=== PATIENT | female | born 1945 | race Caucasian/White ===

== ENCOUNTER 2016-08-04 12:22 | Inpatient (IN) ==
[2016-08-04 14:15] LABS: Basophils % 0.3 %; Eosinophils % 0.2 %; Hematocrit 38.9 % (35.3-44.9); Hemoglobin 11.5 g/dL (11.5-15.4); Immature Granulocytes % 0.7 % (0-4); Immature Platelets 7.6 % (1.1-6.1); Lymphocytes # 1.3 K/mcL (0.6-4.6); Lymphocytes % 12.3 %; Mean Corpuscular HGB Conc 29.6 g/dL (31.6-35.5); Mean Corpuscular Hemoglobin 28.9 pg (28.0-33.3); Mean Corpuscular Volume 97.7 fL (83.0-100.0); Mean Platelet Volume 10.6 fL (9.4-12.4); Monocytes # 0.4 K/mcL (0.0-1.3); Monocytes % 3.4 %; Neutrophils # 8.9 K/mcL (1.6-8.9); Platelet Count 302 K/mcL (140-400); Red Blood Count 3.98 M/mcL (3.82-4.97); Red Cell Distribution Width 13.5 % (11.5-14.5); Segmented Neutrophils % 83.1 %
--- NOTE | 2016-08-04 14:18 | Emergency Department Note ---
Disposition Clinical Impression: Hypoxia, COPD exacerbation Disposition: Admitted As Inpatient Condition: Good Referrals: Hal Monroy MD [Primary Care Provider] - Forms: ED Satisfaction Letter SOB HPI - General Chief Complaint: ED Shortness of Breath/Dyspnea Stated Complaint: ZOE Time Seen by Provider: 08/04/16 14:14 Source: patient, family Mode of arrival: wheelchair Limitations: no limitations Nursing Notes Reviewed: Yes Vital Signs Reviewed: Yes - History of Present Illness 71-year-old female history of CAD, status post CABG, A. 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 Patient is accompanied by family. They report that earlier today at the office the patient was 70% on room air and with her oxygen with ambulation. Reports she had worsening shortness of breath. She reports that she was sent over for evaluation and was told she would likely be admitted. Patient reports she has been short of breath for one week as well as a productive cough with yellow sputum. No fevers. No chest pain. No sick contacts. No history of DVT or PE. No other complaints. 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 Denies: chest pain, fever, nausea/vomiting Treatment prior to arrival: oxygen Cough present: Yes Cough Description: Involuntary Cough Frequency: Intermittent Sputum production: Yes Sputum Amount: Small Sputum Color: Yellow - Related Data Home oxygen amount: 3 liters Home Medications Medication Instructions Recorded Confirmed Acetaminophen [Tylenol] 500 mg PO Q6HR PRN 08/04/16 08/04/16 Albuterol Neb [Proventil Neb] 2.5 mg IH TID 08/04/16 08/04/16 Apixaban [Eliquis] 5 mg PO BID 08/04/16 08/04/16 Aspirin Enteric Coated [Aspirin EC] 81 mg PO DAILY 08/04/16 08/04/16 Clopidogrel [Plavix] 75 mg PO DAILY 08/04/16 08/04/16 Ferrous Sulfate 325 mg PO DAILY 08/04/16 08/04/16 Fluticasone/Salmeterol [Advair 1 each IH BID 08/04/16 08/04/16 500-50 Diskus] Furosemide [Lasix] 40 mg PO DAILY 08/04/16 08/04/16 Lisinopril [Zestril] 5 mg PO DAILY 08/04/16 08/04/16 Metoprolol [Lopressor] 50 mg PO BID 08/04/16 08/04/16 Pantoprazole Sodium [Protonix] 40 mg PO DAILY 08/04/16 08/04/16 Potassium Chloride [K-Tab ER] 20 meq PO DAILY 08/04/16 08/04/16 Pravastatin Sodium [Pravachol] 80 mg PO HS 08/04/16 08/04/16 PredniSONE 7.5 mg PO DAILY 08/04/16 08/04/16 Sennosides/Docusate Sodium 1 each PO DAILY PRN 08/04/16 08/04/16 [Senna-S Tablet] Allergies Allergy/AdvReac Type Severity Reaction Status Date / Time Iodinated Contrast Media - AdvReac See Verified 08/04/16 16:20 Oral and Comments Sulfa (Sulfonamide AdvReac Hives Verified 08/04/16 12:35 Antibiotics) Varenicline [From Chantix] AdvReac See Verified 08/04/16 16:20 Comments tape AdvReac Hives Uncoded 08/04/16 12:35 All systems ED: reviewed and negative except as stated. Constitutional: Denies: fever, chills Cardiovascular: Denies: chest pain Respiratory: Reports: cough, dyspnea. Denies: wheezes, hemoptysis Gastrointestinal: Denies: abdominal pain, nausea, vomiting Musculoskeletal: Denies: back pain, neck pain Past Medical History - Past Medical History Attestation: Yes The following information was validated with the patient. Source: patient Medical history: Reports: CHF, COPD, GERD, hypertension, myocardial infarction Surgical history: Reports: non-contributory Psychiatric history: Reports: anxiety, depression - Social History Smoking Status: Current every day smoker Smokeless Tobacco Status: No Alcohol use: Reports: none Drug use: Reports: none Physical Exam - General Limitations: no limitations General appearance: alert, in no apparent distress - Head Head exam: atraumatic, normocephalic, normal inspection - Eye Eye exam: Present: normal appearance, EOMI - ENT ENT exam: normal exam - Neck Neck exam: Present: normal inspection, full ROM - Chest Chest inspection: Present: normal inspection, symmetric chest wall rise - Respiratory Respiratory exam: Present: normal lung sounds bilaterally - Cardiovascular Cardiovascular exam: Present: normal rhythm, irregular rhythm, normal heart sounds - Abdominal Exam Abdominal exam: Present: soft, Non-Tender. Absent: tenderness - Extremities Exam Extremities exam: Present: normal inspection, full ROM - Expanded Upper Extremity Exam Shoulder exam: Present: normal inspection, full ROM Arm exam: Present: normal inspection, full ROM Elbow exam: Present: normal inspection, full ROM Forearm/Wrist exam: Present: normal inspection, full ROM Hand exam: Present: normal inspection, full ROM - Expanded Lower Extremity Exam Hip/Pelvis exam: Present: normal inspection, full ROM Upper leg exam: Present: normal inspection, full ROM Knee exam: Present: normal inspection, full ROM Lower leg exam: Present: normal inspection, full ROM Ankle exam: Present: normal inspection, full ROM Foot/toe exam: Present: normal inspection, full ROM - Neurological Exam Neurological exam: Present: alert - Psychiatric Psychiatric exam: Present: normal affect, normal mood - Skin Skin exam: Present: warm, dry, intact, normal color Course Course Narrative: Patient seen and examined. Vital signs reviewed. Patient has an increased oxygen requirement here. We will get an EKG chest x-ray as well as basic labs including troponin and BNP. - Reevaluation(s) Reevaluation #1: Discussed results of lab work and imaging with the patient and family. Vital Signs Temperature 98.6 F 08/04/16 12:26 Pulse Rate 82 08/04/16 12:26 Respiratory Rate 22 08/04/16 12:26 Blood Pressure 132/73 08/04/16 12:26 O2 Sat by Pulse Oximetry 98 08/04/16 12:26 Temperature 98.6 F 08/04/16 12:26 Pulse Rate 70 08/04/16 16:00 Respiratory Rate 8 08/04/16 16:32 Blood Pressure 115/75 08/04/16 16:00 O2 Sat by Pulse Oximetry 99 08/04/16 16:32 Oxygen Delivery Oxygen Delivery Nasal Cannula Shortness of Breath/Dyspnea - MDM Narrative Medical decision making narrative: 71-year-old female presents to the ER due to hypoxia and shortness of breath. Patient reports she has had symptoms for the last week. She was seen today by her restaurant maintenance technician where she desatted they are to 70%. Patient has had increased oxygen requirement to 8 L nasal cannula here. Mentating appropriately. EKG shows A. fib which is chronic for her. Chest x-ray unremarkable. Patient given a DuoNeb and Solu-Medrol here. Admitted to the hospital for hypoxia. - Lab Data Lab results reviewed: Yes I reviewed the patient's lab results. Result diagrams: 08/04/16 14:01 08/04/16 14:01 Lab Results 08/04/16 08/04/16 08/04/16 Range/Units 14:01 14:01 14:01 WBC 10.7 (4.3-11.1) K/mcL RBC 3.98 (3.82-4.97) M/mcL Hgb 11.5 (11.5-15.4) g/dL Hct 38.9 (35.3-44.9) % MCV 97.7 (83.0-100.0) fL MCH 28.9 (28.0-33.3) pg MCHC 29.6 L (31.6-35.5) g/dL RDW 13.5 (11.5-14.5) % Plt Count 302 (140-400) K/mcL MPV 10.6 (9.4-12.4) fL Immature Gran % 0.7 (0-4) % Seg Neutrophils % 83.1 % Lymphocytes % 12.3 % Monocytes % 3.4 % Eosinophils % 0.2 % Basophils % 0.3 % Neutrophils # 8.9 (1.6-8.9) K/mcL Lymphocytes # 1.3 (0.6-4.6) K/mcL Monocytes # 0.4 (0.0-1.3) K/mcL Eosinophils # 0.0 (0.0-0.6) K/mcL Basophils # 0.0 (0.0-0.2) K/mcL Immature Plt Fraction 7.6 H (1.1-6.1) % Sodium 141 (136-145) mEq/L Potassium 4.4 (3.5-4.5) mEq/L Chloride 103 (98-109) mEq/L Carbon Dioxide 30 H (19-29) mEq/L BUN 24 H (7-20) mg/dL Creatinine 0.97 (0.57-1.11) mg/dL Est GFR ( Amer) > 60 (> 60) Est GFR (Non-Af Amer) 56 L (> 60) BUN/Creatinine Ratio 25 (6-26) Glucose 102 H (70-99) mg/dL Calculated Osmolality 296 (280-300) Calcium 9.9 (8.6-10.8) mg/dL Troponin I 0.03 (0-0.03) ng/mL B-Natriuretic Peptide (0-100) pg/mL 08/04/16 Range/Units 14:01 WBC (4.3-11.1) K/mcL RBC (3.82-4.97) M/mcL Hgb (11.5-15.4) g/dL Hct (35.3-44.9) % MCV (83.0-100.0) fL MCH (28.0-33.3) pg MCHC (31.6-35.5) g/dL RDW (11.5-14.5) % Plt Count (140-400) K/mcL MPV (9.4-12.4) fL Immature Gran % (0-4) % Seg Neutrophils % % Lymphocytes % % Monocytes % % Eosinophils % % Basophils % % Neutrophils # (1.6-8.9) K/mcL Lymphocytes # (0.6-4.6) K/mcL Monocytes # (0.0-1.3) K/mcL Eosinophils # (0.0-0.6) K/mcL Basophils # (0.0-0.2) K/mcL Immature Plt Fraction (1.1-6.1) % Sodium (136-145) mEq/L Potassium (3.5-4.5) mEq/L Chloride (98-109) mEq/L Carbon Dioxide (19-29) mEq/L BUN (7-20) mg/dL Creatinine (0.57-1.11) mg/dL Est GFR ( Amer) (> 60) Est GFR (Non-Af Amer) (> 60) BUN/Creatinine Ratio (6-26) Glucose (70-99) mg/dL Calculated Osmolality (280-300) Calcium (8.6-10.8) mg/dL Troponin I (0-0.03) ng/mL B-Natriuretic Peptide 314 H (0-100) pg/mL - Radiology Data Radiology results reviewed: Yes I reviewed the patient's radiology results. Chest X-Ray 08/04/16 13:38 IMPRESSION: Stable chest. Persistent cardiomegaly. D/ / Micha Mercado MD / Micha Mercado MD Interpreting Provider: Micha Mercado MD - EKG Data EKG attestation: Yes I reviewed and interpreted this EKG. EKG results narrative: EKG demonstrates atrial fibrillation with a rate of 77. LAD. QRS duration 104, QTc 432. T wave flattening in Leads 2,3. No ST elevations or depressions. No acute ischemic findings. S.B.A.R. - S.Matteo.Krystian Situation: Demographics, MOA Background: Presenting Complaint, Relevant PMH, Meds, & Allergies Assessment: Vital Signs, Course and respsone to treatment, Exam Concerns, Patient/Family Expectation, Pertinant Lab Results, Outstanding Labs Recommendation: Barrier(s) to disposition, Recommendation based on pending studies, treatments, or consults S.B.A.RDavid Report Given to: Fabienne Muniz Repor Time: 17:40 Attestation Statement - Attestation Attestation: I personally interviewed and examined this patient and my medical decision- making was reviewed with the ED Resident Physician, Dr. Hayes. I agree with the documented findings, disposition and treatment plan as described in the documentation. Pt will be admitted for COPD exacerbation, sent from [employer]er Deliverer's office, with incr O2 requirement. Labs and imaging here wnl.
[2016-08-04 14:26] LABS: BUN/Creatinine Ratio 25 (6-26); Blood Urea Nitrogen 24 mg/dL (7-20); Calcium 9.9 mg/dL (8.6-10.8); Carbon Dioxide 30 mEq/L (19-29); Chloride 103 mEq/L (98-109); Glucose 102 mg/dL (70-99); Osmolality,Calculated 296 (280-300); Potassium 4.4 mEq/L (3.5-4.5); Sodium 141 mEq/L (136-145); eGFR For African Americans > 60 (> 60); eGFR For Non-African Americans 56 (> 60)
[2016-08-04] MEDS ORDERED: Furosemide 20 MG/2 ML VIAL IVP ONE (14:51)
[2016-08-04] MEDS ORDERED: methylPREDNISolone 125 MG/2 ML VIAL IVP ONE (16:04)
[2016-08-04] MEDS ORDERED: Ipratropium/Albuterol Neb 3 ML IH ONE (16:04)
[2016-08-04] MEDS ORDERED: Naloxone 0.4 MG/ML INJ IVP PRN (22:53)
[2016-08-04] MEDS ORDERED: Sennosides/Docusate Sodium TABLET PO PRN (22:55)
--- NOTE | 2016-08-04 23:01 | Internal Med History&Physical ---
Date of Encounter: 08/04/16 Time of Encounter: 23:00 Assessment and Plan (1) COPD exacerbation Current visit: Yes Status: Acute Treated the Solu-Medrol, duonebs, Mucinex. (2) Acute and chronic respiratory failure Current visit: Yes Status: Acute Likely need to get a consideration of COPD. Continue supplemental oxygen and treatment for COPD exacerbation. Qualifiers: Respiratory failure complication: hypoxia Qualified Code(s): J96.21 - Acute and chronic respiratory failure with hypoxia (3) Chronic anticoagulation Current visit: Yes Status: Chronic Pt is on apixaban - continue (4) Atrial fibrillation with normal ventricular rate Current visit: No Status: Acute (5) Hypertension Current visit: Yes Status: Chronic Continue home medications Qualifiers: Hypertension type: essential hypertension Qualified Code(s): I10 - Essential (primary) hypertension (6) Nicotine dependence Current visit: Yes Status: Chronic Nicotine patch Qualifiers: Nicotine product type: cigarettes Substance use status: other nicotine- induced disorder Qualified Code(s): F17.218 - Nicotine dependence, cigarettes , with other nicotine-induced disorders Internal Medicine - H&P: HPI Chief complaint: Shortness of breath; hypoxia Admitted From: Emergency Dept Plans for Post Hospital Care: Home History of present illness: Ms. Rodarte is a 71 year old female with history of CAD, status post CABG, A. fib , chronic respiratory failure on home oxygen 3 L. 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 In the office the patient was hypoxic with O2 sats of 70% on room air and with her oxygen with ambulation - hence she was sent to the emergency department for further evaluation. In the ER, CXR showed cardiomegaly. She was treated with duo-nebs, IV lasix and solumedrol. She is admitted to the hospitalist service for further management. Patient reports shortness of breath on exertion. She reports cough, due to sinus problems; no hemoptysis. Denies wheezing, chest pain, palpitations, abdominal pain, nausea, vomiting, fever, chills, dysuria, hematuria, bowel problems. Past Med Surg Social Fam HX - Past Medical History Medical history: CHF, COPD, GERD, hypertension, myocardial infarction Psychiatric history: anxiety, depression - Past Surgical History Surgical History: angioplasty/stent, hysterectomy, pacemaker/AICD - Social History Smoking Status: Current every day smoker Packs per day: 1 Smokeless Tobacco Status: No Alcohol use: none Drug use: none - Family History Father Adopted: [place]: [place] Family Member Ethnicity: Non- Living Status: Age at : 38 Cause of : [place] Hx Family Cardiac Disorders: Yes Hx Family Respiratory Disorders: No Hx Family Cancer: No Hx Family GI Disorders: No Hx Family Genitourinary Disorders: No Hx Family Endocrine Disorder: No Hx Family Musculoskeletal Disorders: No Hx Family Neuromuscular Disorders: No Hx Family Neurologic Disorders: No Hx Family HEENT Disorders: No Hx Family Autoimmune Disorders: No Hx Family Reproductive Disorders: No Hx Family Psychosocial Disorders: No Hx Family Medical Disorders: No Internal Medicine - H&P: Meds Acetaminophen [Tylenol] 500 mg PO Q6HR PRN 08/04/16 [History] Albuterol Neb [Proventil Neb] 2.5 mg IH TID 08/04/16 [History] Apixaban [Eliquis] 5 mg PO BID 08/04/16 [History] Aspirin Enteric Coated [Aspirin EC] 81 mg PO DAILY 08/04/16 [History] Clopidogrel [Plavix] 75 mg PO DAILY 08/04/16 [History] Ferrous Sulfate 325 mg PO DAILY 08/04/16 [History] Fluticasone/Salmeterol [Advair 500-50 Diskus] 1 each IH BID 08/04/16 [History] Furosemide [Lasix] 40 mg PO DAILY 08/04/16 [History] Lisinopril [Zestril] 5 mg PO DAILY 08/04/16 [History] Metoprolol [Lopressor] 50 mg PO BID 08/04/16 [History] Pantoprazole Sodium [Protonix] 40 mg PO DAILY 08/04/16 [History] Potassium Chloride [K-Tab ER] 20 meq PO DAILY 08/04/16 [History] Pravastatin Sodium [Pravachol] 80 mg PO HS 08/04/16 [History] PredniSONE 7.5 mg PO DAILY 08/04/16 [History] Sennosides/Docusate Sodium [Senna-S Tablet] 1 each PO DAILY PRN 08/04/16 [ History] Allergies Iodinated Contrast Media - Oral and Adverse Reaction (Verified 08/04/16 16:20) See Comments ECW Sulfa (Sulfonamide Antibiotics) Adverse Reaction (Verified 08/04/16 12:35) Hives Varenicline [From Chantix] Adverse Reaction (Verified 08/04/16 16:20) See Comments ECW tape Adverse Reaction (Uncoded 08/04/16 12:35) Hives All Systems PM: A 10-system review of systems was performed and is negative for pertinent findings except as documented above in the HPI. - Constitutional Vitals: Temp Pulse Resp BP Pulse Ox 97.3 F L 79 15 95/59 99 08/04/16 20:11 08/04/16 20:11 08/04/16 20:11 08/04/16 20:11 08/04/16 20:11 Exam: General: Not in acute distress at the time of my evaluation HEENT: Oral mucosa is moist. No conjunctival palor or scleral icterus Neck: No obvious neck swellings Lungs: Occasional wheeze present. Few basal crackles at the bases Cardiac: Regular rate and rhythm. No significant murmurs Abdomen: Soft, non tender. Bowel sounds present Genitourinary: No avina catheter Neurological: Alert and oriented. No gross localizing deficits Psych: Not aggressive or agitated Extremities: leg edema present Skin: No generalized rash Internal Med - H&P Results - Labs CBC & Chem 7: 08/05/16 04:29 08/05/16 02:48 - EKG Data -: EKG Interpreted by Myself - EKG Data EKG comments: A fib, rate controlled 08/05/16 08:01 - Impressions ITS Impressions Chest X-Ray 08/04/16 13:38 IMPRESSION: Stable chest. Persistent cardiomegaly. D/ / Micha Mercado MD / Micha Mercado MD Interpreting Provider: Micha Mercado MD
[2016-08-04] MEDS: APIXABAN 5 MG TABLET PO SCH (23:12)
[2016-08-04] MEDS: Budesonide/Formoterol 160/4.5 MDI IH SCH (23:26)
[2016-08-04] MEDS: Ipratropium/Albuterol Neb 3 ML IH SCH (23:26)
[2016-08-05] MEDS: MethylPREDNISolone 40 MG/ML VIAL IVP SCH ×3 (00:17→16:11)
[2016-08-05] MEDS: Ipratropium/Albuterol Neb 3 ML IH SCH ×4 (03:55→21:57)
[2016-08-05 04:08] LABS: BUN/Creatinine Ratio 24 (6-26); Blood Urea Nitrogen 24 mg/dL (7-20); Calcium 9.3 mg/dL (8.6-10.8); Carbon Dioxide 25 mEq/L (19-29); Chloride 104 mEq/L (98-109); Glucose 215 mg/dL (70-99); Osmolality,Calculated 299 (280-300); Potassium 4.5 mEq/L (3.5-4.5); Sodium 139 mEq/L (136-145); eGFR For African Americans > 60 (> 60); eGFR For Non-African Americans 53 (> 60)
[2016-08-05 04:45] LABS: Basophils % 0.1 %; Hematocrit 32.8 % (35.3-44.9); Hemoglobin 10.4 g/dL (11.5-15.4); Immature Granulocytes % 0.9 % (0-4); Lymphocytes # 0.8 K/mcL (0.6-4.6); Lymphocytes % 9.2 %; Mean Corpuscular HGB Conc 31.7 g/dL (31.6-35.5); Mean Corpuscular Volume 94.5 fL (83.0-100.0); Monocytes # 0.1 K/mcL (0.0-1.3); Monocytes % 0.8 %; Neutrophils # 7.5 K/mcL (1.6-8.9); Platelet Count 257 K/mcL (140-400); Red Blood Count 3.47 M/mcL (3.82-4.97); Red Cell Distribution Width 13.3 % (11.5-14.5)
[2016-08-05] MEDS: Furosemide 40 MG TABLET PO SCH (08:22)
[2016-08-05] MEDS: Aspirin Enteric Coated 81 MG Tablet PO SCH (08:22)
[2016-08-05] MEDS: APIXABAN 5 MG TABLET PO SCH ×2 (08:22→20:38)
[2016-08-05] MEDS: Nicotine 21 MG PATCH.TD24 TD SCH (08:23)
[2016-08-05] MEDS: Budesonide/Formoterol 160/4.5 MDI IH SCH ×2 (10:13→21:57)
--- NOTE | 2016-08-05 14:09 | Internal Med Progress Note ---
Date of Encounter: 08/05/16 Time of Encounter: 09:15 - Assessment and plan (1) COPD exacerbation Current Visit: Yes Status: Acute Assessment and plan: On examination, patient with fair to good aeration throughout. I'm not fully convince her decreased oxygen levels as well as her increased shortness of breath with exertion are strictly related to her COPD. Suspect her combined heart failure is playing a role. She has not had an echocardiogram since 2013, one has been ordered. We will continue to treat for both COPD exacerbation as well as possible heart failure exacerbation. Last known ejection fraction from 2012 was 40%. ITS Impressions Chest X-Ray 08/04/16 13:38 IMPRESSION: Stable chest. Persistent cardiomegaly. 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 Most recent echocardiogram from 2012 revealed ejection fraction of 40% with moderate LV dysfunction, mild TR, MR , and mild aortic stenosis with stage I diastolic dysfunction. She also had a left heart catheter and December 2015 which revealed severe stenosis of her left main, left anterior descending with occlusions of her left circumflex and occlusion of SVG to LAD. She appears euvolemic on examination although an acute exacerbation given her dyspnea on exertion is likely contributing factor. Her lungs are relatively clear with fair to good aeration throughout. No recent echocardiogram, will obtain one. (3) Atrial fibrillation with normal ventricular rate Current Visit: No Status: Chronic Assessment and plan: rate controlled; on Eliquis (4) Acute and chronic respiratory failure Current Visit: Yes Status: Acute Assessment and plan: Acute on chronic. At home, she is on 3 L per nasal cannula as needed. She is currently more short of breath than usual and on 4 L per nasal cannula continuously. Qualifiers: Respiratory failure complication: hypoxia Qualified Code(s): J96.21 - Acute and chronic respiratory failure with hypoxia (5) Chronic anticoagulation Current Visit: Yes Status: Chronic Assessment and plan: Eliquis (6) Hypertension Current Visit: Yes Status: Chronic Assessment and plan: Controlled, borderline hypotensive at times, will continue to trend. At home, patient is on metoprolol 50 mg twice a day, lisinopril 5 mg daily, furosemide 40 mg daily and these have all been continued. Qualifiers: Hypertension type: essential hypertension Qualified Code(s): I10 - Essential (primary) hypertension (7) Nicotine dependence Current Visit: Yes Status: Chronic Assessment and plan: Continues to smoke 1 pack per day, declines counseling at this time Qualifiers: Nicotine product type: cigarettes Substance use status: other nicotine- induced disorder Qualified Code(s): F17.218 - Nicotine dependence, cigarettes , with other nicotine-induced disorders - Subjective Interval history: Patient is seen and examined. On examination patient sitting upright in bed. Patient states she is feeling slightly better this continues to be much more short of breath than usual. She is endorsing a normal appetite. - Constitutional Vitals: Temp Pulse Resp BP Pulse Ox 98.1 F 82 16 93/56 97 08/05/16 10:51 08/05/16 10:51 08/05/16 10:51 08/05/16 10:51 08/05/16 10:51 General appearance: Present: mild distress, A&O X 3, pleasant, answers questions appropriately - Head Head exam: Present: atraumatic, normocephalic - Eye Eye exam: Present: PERRL, conjuntiva pink, sclera anicteric Pupils: Present: PERRL - Neck Neck exam general surgery: Present: supple, trachea midline. Absent: lymphadenopathy - Respiratory Respiratory exam: Present: accessory muscle use, decreased breath sounds (fair to good aeration throughout), prolonged expiratory phase, respiratory distress. Absent: rales, rhonchi, wheezes - Cardiovascular Cardiovascular exam: Present: RRR, +S1, +S2. Absent: diastolic murmur, gallop, rubs, systolic murmur - GI/Abdominal GI/Abdominal exam: Present: normal bowel sounds, soft, no peritoneal signs. Absent: distended, tenderness - Extremities Exam Extremities exam: Present: warm, radial pulses palpable and symetrical. Absent : calf tenderness, cyanotic, pedal edema - Neurological Exam Neurological exam: Present: alert, CN II-XII intact, normal gait, oriented X3, no focal deficits, strengths equal and symetr throughout. Absent: pronater drift, facial droop, speech deficit - Skin Skin exam: Present: dry, intact, pallor, warm Internal Medicine: Result - Labs CBC & Chem 7: 08/05/16 04:29 08/05/16 02:48 Labs: Short CBC 08/05/16 Range/Units 04:29 WBC 8.5 (4.3-11.1) K/mcL Hgb 10.4 L (11.5-15.4) g/dL Hct 32.8 L (35.3-44.9) % Plt Count 257 (140-400) K/mcL Neutrophils # 7.5 (1.6-8.9) K/mcL BMP 08/05/16 02:48 Sodium 139 Potassium 4.5 Chloride 104 Carbon Dioxide 25 BUN 24 H Creatinine 1.02 Glucose 215 H Calcium 9.3 Consult Discharge Plan - Plan Referrals: Hal Monroy MD [Primary Care Provider] -
[2016-08-06] MEDS: MethylPREDNISolone 40 MG/ML VIAL IVP SCH ×3 (01:21→18:01)
[2016-08-06] MEDS: Ipratropium/Albuterol Neb 3 ML IH SCH ×3 (03:47→15:49)
[2016-08-06 04:15] LABS: BUN/Creatinine Ratio 25 (6-26); Blood Urea Nitrogen 24 mg/dL (7-20); Calcium 9.3 mg/dL (8.6-10.8); Carbon Dioxide 29 mEq/L (19-29); Chloride 102 mEq/L (98-109); Glucose 170 mg/dL (70-99); Osmolality,Calculated 300 (280-300); Potassium 4.3 mEq/L (3.5-4.5); Sodium 141 mEq/L (136-145); eGFR For African Americans > 60 (> 60); eGFR For Non-African Americans 56 (> 60)
[2016-08-06] MEDS: APIXABAN 5 MG TABLET PO SCH (10:36)
[2016-08-06] MEDS: Aspirin Enteric Coated 81 MG Tablet PO SCH (10:36)
[2016-08-06] MEDS: Furosemide 40 MG TABLET PO SCH (10:36)
[2016-08-06] MEDS: Nicotine 21 MG PATCH.TD24 TD SCH (10:37)
[2016-08-06 10:44] VITALS: BP 133/72
[2016-08-06] MEDS: Budesonide/Formoterol 160/4.5 MDI IH SCH (10:50)
--- NOTE | 2016-08-06 16:08 | ECHO - Doppler Report ---
Echocardiogram Name: Juan Rodarte Date of Study: 08/06/2016 Date: 1945 Ht: 58.0 in Medical Record#: [id number] Age: 71 Wt: 143.0 lb Gender: Female BSA: 1.58 Order #: [id number] Location: [facility] Room #: 3B11 Reading Physician: Micha Jackson MD, [facility] Hand Kiss Setter: Ara Isbell RVT Ordering Physician: Latanya Jones CNP Primary Physician: Hal Monroy MD Indications: dyspnea on exertion Impressions: Moderately dilated left ventricle. Mild LV systolic dysfunction, LVEF 40-45%. There are regional wall motion abnormalities, see diagram below. Indeterminate diastolic function due to atrial fibrillation. Normal right ventricular size. Mild RV hypokinesis. A device lead was visualized in the right atrium and right ventricle. Severely dilated left atrium. Moderately dilated right atrium. Mild mitral regurgitation. No evidence of pulmonary hypertension. Left Ventricular Wall Motion: Rest Echo Findings The apical inferior, mid inferior, basal inferior, apical septal, mid inferior septal, basal inferior septal, mid inferior lateral and basal inferior lateral mack were hypokinetic. All other wall segments showed normal motion. Findings: Study Quality * Technically adequate exam. ECG Findings * Atrial fibrillation. Left Ventricle * Moderately dilated left ventricle. * Mild LV systolic dysfunction, LVEF 40-45%. There are regional wall motion abnormalities, see diagram below. * Normal LV wall thickness * Indeterminate diastolic function due to atrial fibrillation. Right Ventricle * Normal right ventricular size. Mild RV hypokinesis. Device lead * A device lead was visualized in the right atrium and right ventricle. Left Atrium * Severely dilated left atrium. Right Atrium * Moderately dilated right atrium. Aorta * Normally sized aortic root. Pericardium * There is no pericardial effusion present. IVC * The IVC is borderline dilated with normal inspiratory collapse. Aortic Valve * Aortic valve not well visualized. Appears moderately thickened/calcified. * No aortic stenosis. * Trace aortic regurgitation. Mitral Valve * Mild mitral annular calcification * Mildly thickened mitral valve leaflets. * No mitral stenosis. * Mild mitral regurgitation. Tricuspid Valve * Normal tricuspid valve structure. * No tricuspid stenosis. * Trace tricuspid regurgitation. * No evidence of pulmonary hypertension. Pulmonic Valve * Normal pulmonic valve structure. * No pulmonic stenosis. * Trace pulmonic regurgitation. History Hypertension Hypercholesteremia Rheumatic Fever Family History of CAD History of CAD/PTCA Myocardial Infarction Coronary Artery Bypass Graft Pacer/ICD Implant Measurements: BP: 105/ 62 2D Normal Values RVIDd: 2.88 cm IVSd: 1.04 cm 0.6 - 1.0 cm LVIDd: 5.95 cm 3.7 - 5.6 cm LVPWd: .94 cm 0.6 - 1.1 cm LVIDs: 4.93 cm 1.5 - 3.6 cm AO: 2.70 cm < 4.0 cm %FS: 17.10 cm >25 % LA volume: 125 Tricuspid Valve TV Regurg Peak Grad: 17.00mmHg TV Regurg Peak Raciel: 2.10m/sec Updated by Micha Jackson MD, [facility] on 08/06/2016 4:03:25 PM electronically signed on 08/06/2016 4:04:30 PM with status of Final Wall Motion Hdz: 1=Normal, 2=Hypokinesis, 3=Akinesis, 4=Dyskinesis, 5=Aneurysmal, 6=Hyperkinetic, X=Not Visualized (Blank)=Missing
--- NOTE | 2016-08-06 17:33 | Discharge Summary ---
Date of Encounter: 08/06/16 Time of Encounter: 16:30 - Discharge Diagnosis (1) COPD exacerbation Priority: Primary Status: Resolved Comments: Patient denies shortness of breath above her normal day of discharge. 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 Follow-up outpatient. (3) Atrial fibrillation with normal ventricular rate Priority: Secondary Status: Chronic Comments: rate controlled; on Eliquis. Follow-up outpatient (4) Acute and chronic respiratory failure Priority: Primary Status: Acute Comments: She wears 3 L per nasal cannula as needed at home. We walked her prior to discharge and the lowest she will was 88% on room air after extensive walking. No increased need for oxygen. Qualifiers: Respiratory failure complication: hypoxia Qualified Code(s): J96.21 - Acute and chronic respiratory failure with hypoxia (5) Chronic anticoagulation Priority: Secondary Status: Chronic (6) Hypertension Priority: Secondary Status: Chronic Comments: Controlled, borderline hypotensive at times but asymptomatic. Daily blood pressure checks at home, and follow-up outpatient Qualifiers: Hypertension type: essential hypertension Qualified Code(s): I10 - Essential (primary) hypertension (7) Nicotine dependence Priority: Secondary Status: Chronic Comments: Lengthy discussion on smoking cessation, patient stating she has been to try to cut down to 8-10 cigarettes per day but she is not ready to discuss stopping Qualifiers: Nicotine product type: cigarettes Substance use status: other nicotine- induced disorder Qualified Code(s): F17.218 - Nicotine dependence, cigarettes , with other nicotine-induced disorders - Discharge Medications Prescriptions: GuaiFENesin ER [Mucinex] 600 mg PO BID #14 tbbp.12hr Levofloxacin 750 mg PO DAILY #5 tablet PredniSONE 10 mg PO DAILY #41 tablet Home Medications: Acetaminophen [Tylenol] 500 mg PO Q6HR PRN 08/04/16 [History] Albuterol Neb [Proventil Neb] 2.5 mg IH TID 08/04/16 [History] Apixaban [Eliquis] 5 mg PO BID 08/04/16 [History] Aspirin Enteric Coated [Aspirin EC] 81 mg PO DAILY 08/04/16 [History] Clopidogrel [Plavix] 75 mg PO DAILY 08/04/16 [History] Ferrous Sulfate 325 mg PO DAILY 08/04/16 [History] Fluticasone/Salmeterol [Advair 500-50 Diskus] 1 each IH BID 08/04/16 [History] Furosemide [Lasix] 40 mg PO DAILY 08/04/16 [History] Lisinopril [Zestril] 5 mg PO DAILY 08/04/16 [History] Metoprolol [Lopressor] 50 mg PO BID 08/04/16 [History] Pantoprazole Sodium [Protonix] 40 mg PO DAILY 08/04/16 [History] Potassium Chloride [K-Tab ER] 20 meq PO DAILY 08/04/16 [History] Pravastatin Sodium [Pravachol] 80 mg PO HS 08/04/16 [History] PredniSONE 7.5 mg PO DAILY 08/04/16 [History] Sennosides/Docusate Sodium [Senna-S Tablet] 1 each PO DAILY PRN 08/04/16 [ History] GuaiFENesin ER [Mucinex] 600 mg PO BID #14 tbbp.12hr 08/06/16 [Rx] Levofloxacin 750 mg PO DAILY #5 tablet 08/06/16 [Rx] PredniSONE 10 mg PO DAILY #41 tablet 08/06/16 [Rx] Allergies/Adverse Reactions: Allergies Iodinated Contrast Media - Oral and Adverse Reaction (Verified 08/04/16 16:20) See Comments ECW Sulfa (Sulfonamide Antibiotics) Adverse Reaction (Verified 08/04/16 12:35) Hives Varenicline [From Chantix] Adverse Reaction (Verified 08/04/16 16:20) See Comments ECW tape Adverse Reaction (Uncoded 08/04/16 12:35) Hives Procedures/tests Complete & Pending: Procedures Performed prior 72 hours Category Date Time Status EV echocardiogram Routine Y 08/06/16 14:20 Completed Date of admission: 08/04/16 22:53 Primary care physician: Hal Monroy MD Discharging clinician: Latanya Jones Anticipated date of discharge: 08/06/16 - Patient Status Disposition: Home, Self-Care Condition: Good Functional capacity at discharge: independent ambulation Overall status at discharge: patient is back to baseline - Discharge Instructions Follow Up With: Hal Monroy MD [Primary Care Provider] - Prabhu Pete MD [Partnered Physician] - Additional Instructions: Follow-up with primary care provider in one to 2 weeks. Follow-up with pulmonology as needed - Diet and Activity Activity: increase activity as tolerated, wear oxygen at night (PRN) Diet: low fat, low cholesterol, low salt diet Hospital course: Ms. Rodarte is a 71 year old female with past medical history of CAD status post CABG, atrial fibrillation on Eliquis, chronic respiratory failure on 3 L per nasal cannula as needed at home, combined heart failure status post ICD, tobacco abuse. Patient presented to the emergency department after she was sent from her plant pathologist office due to hypoxia and shortness of breath. She was in her plant pathologist's office when her oxygen sats went down to 70% on room air and she was sent to the emergency department. Chest x-ray unremarkable for acute processes. Patient was admitted to the hospitalist service for further evaluation and management. She was admitted and observed over the course of 3 days. She was treated for COPD exacerbation and she had an echocardiogram which revealed an ejection fraction of 40-45% and was consistent with prior echocardiogram documented at her visit with cardiology earlier this year of an echocardiogram that she had in 2013. She was euvolemic on examination throughout this admission. On day of discharge, she was walked around the unit for an extended period of time and the lowest her oxygen went was 88% on room air with ambulation and talking. She denies shortness of breath above her normal day of discharge. She was counseled extensively on smoking cessation and she states that she will try to cut down from one pack per day down to 10- 12 cigarettes per day but she is not ready to discuss stopping smoking at this time. She was discharged home in stable condition with close outpatient follow- up recommended. ITS Impressions Chest X-Ray 08/04/16 13:38 IMPRESSION: Stable chest. Persistent cardiomegaly. D/ / Micha Mercado MD / Micha Mercado MD Interpreting Provider: Micha Mercado MD Echocardiogram impressions: Moderately dilated left ventricle. Mild LV systolic dysfunction, LVEF 40-45%. There are regional wall motion abnormalities. Indeterminate diastolic function due to atrial fibrillation. Normal right ventricular size. Mild RV hypokinesis. A device lead was visualized in the right atrium and right ventricle. Severely dilated left atrium. Moderately dilated right atrium. Mild mitral regurgitation. No evidence of pulmonary hypertension. Time spent discussing smoking cessation with patient: more than 10 minutes - Time Spent with Patient Total time spent providing and/or coordinating discharge services: - Constitutional Vitals: Temp Pulse Resp BP Pulse Ox 98.0 F 93 16 133/72 94 L 08/06/16 10:40 08/06/16 10:40 08/06/16 15:49 08/06/16 10:40 08/06/16 15:49 General appearance: Present: A&O X 3, pleasant, no acute distress, answers questions appropriately - Head Head exam: Present: atraumatic, normocephalic - Eye Eye exam: Present: PERRL, conjuntiva pink, sclera anicteric Pupils: Present: PERRL - Neck Neck exam general surgery: Present: supple, trachea midline. Absent: lymphadenopathy - Respiratory Respiratory exam: Present: decreased breath sounds. Absent: accessory muscle use, rales, respiratory distress, rhonchi, wheezes - Cardiovascular Cardiovascular exam: Present: RRR, +S1, +S2. Absent: diastolic murmur, gallop, rubs, systolic murmur - GI/Abdominal GI/Abdominal exam: Present: normal bowel sounds, soft, no peritoneal signs. Absent: distended, tenderness - Extremities Exam Extremities exam: Present: warm, radial pulses palpable and symetrical. Absent : calf tenderness, cyanotic, pedal edema - Neurological Exam Neurological exam: Present: alert, CN II-XII intact, normal gait, oriented X3, no focal deficits, strengths equal and symetr throughout. Absent: pronater drift, facial droop, speech deficit - Skin Skin exam: Present: dry, intact, pallor, warm
--- NOTE | 2016-08-06 20:50 | Electrocardiograph Report ---
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
== END 2016-08-06 18:45 | disposition home or self-care (01) | DRG 190 ==
LOC: EMEROO 12:22 → 3ANU 12:22 → 3BNU 18:07
PROVIDERS: ADMIT Nurse Practitioner Family; ATTEND Nurse Practitioner Family

== ENCOUNTER 2016-11-10 11:05 | Inpatient (IN) ==
--- NOTE | 2016-11-10 11:20 | Emergency Department Note ---
Disposition Clinical Impression: Congestive heart failure Qualifiers: Congestive heart failure type: unspecified congestive heart failure type Congestive heart failure chronicity: acute Qualified Code(s): I50.9 - Heart failure, unspecified Disposition: Admitted As Inpatient Condition: Fair Forms: ED Satisfaction Letter Time of Disposition: 13:33 SOB HPI - General Chief Complaint: ED Shortness of Breath/Dyspnea Stated Complaint: ZEO, bilat LE swelling, multiple complaints Time Seen by Provider: 11/10/16 11:09 Source: patient Mode of arrival: ambulatory Limitations: no limitations Nursing Notes Reviewed: Yes Vital Signs Reviewed: Yes - History of Present Illness 71-year-old female who comes in complaining of increasing shortness of breath pain in her feet bilaterally. She noticed that she had increasing swelling of her feet. She does have a history of CHF and takes Lasix. Pt Subjective Complaint: shortness of breath Onset (ago): Just [employer] Context: occurred during exertion Severity: moderate Consistency/Duration: constant Improves with: rest Worsens with: exertion Known history of: congestive heart failure Associated symptoms: Reports: cough Treatment prior to arrival: none Sputum Amount: None - Related Data Home Medications Medication Instructions Recorded Confirmed Acetaminophen [Tylenol] 500 mg PO Q6HR PRN 08/04/16 08/04/16 Albuterol Neb [Proventil Neb] 2.5 mg IH TID 08/04/16 08/04/16 Apixaban [Eliquis] 5 mg PO BID 08/04/16 08/04/16 Aspirin Enteric Coated [Aspirin EC] 81 mg PO DAILY 08/04/16 08/04/16 Clopidogrel [Plavix] 75 mg PO DAILY 08/04/16 08/04/16 Ferrous Sulfate 325 mg PO DAILY 08/04/16 08/04/16 Fluticasone/Salmeterol [Advair 1 each IH BID 08/04/16 08/04/16 500-50 Diskus] Furosemide [Lasix] 40 mg PO DAILY 08/04/16 08/04/16 Lisinopril [Zestril] 5 mg PO DAILY 08/04/16 08/04/16 Metoprolol [Lopressor] 50 mg PO BID 08/04/16 08/04/16 Pantoprazole Sodium [Protonix] 40 mg PO DAILY 08/04/16 08/04/16 Potassium Chloride [K-Tab ER] 20 meq PO DAILY 08/04/16 08/04/16 Pravastatin Sodium [Pravachol] 80 mg PO HS 08/04/16 08/04/16 Sennosides/Docusate Sodium 1 each PO DAILY PRN 08/04/16 08/04/16 [Senna-S Tablet] predniSONE [PredniSONE] 7.5 mg PO DAILY 08/04/16 08/04/16 Previous Rx's Medication Instructions Recorded GuaiFENesin ER [Mucinex] 600 mg PO BID #14 tbbp.12hr 08/06/16 levoFLOXacin [Levofloxacin] 750 mg PO DAILY #5 tablet 08/06/16 predniSONE [PredniSONE] 10 mg PO DAILY #41 tablet 08/06/16 Allergies Allergy/AdvReac Type Severity Reaction Status Date / Time Iodinated Contrast- Oral and AdvReac See Verified 10/06/16 20:40 IV Dye Comments [Iodinated Contrast Media - Oral and] Sulfa (Sulfonamide AdvReac Hives Verified 10/06/16 20:40 Antibiotics) Varenicline [From Chantix] AdvReac See Verified 10/06/16 20:40 Comments tape AdvReac Hives Uncoded 08/04/16 12:35 All systems ED: reviewed and negative except as stated. Constitutional: Denies: fever, chills, weakness, weight change Eyes: Denies: eye pain, eye discharge, vision change ENT ED: Denies: ear pain, throat pain, dental pain, hearing loss, epistaxis, congestion, dysphagia Cardiovascular: Denies: chest pain, palpitations, dyspnea on exertion, edema, syncope Respiratory: Reports: dyspnea. Denies: cough, wheezes, hemoptysis, stridor Gastrointestinal: Denies: abdominal pain, nausea, vomiting, diarrhea, constipation, hematemesis, melena, hematochezia Genitourinary: Denies: dysuria, frequency, hematuria, discharge Musculoskeletal: Denies: back pain, neck pain, arthralgia, myalgia Integumentary: Denies: rash, abrasion, lesions Neurological: Denies: headache, weakness, numbness, paresthesias, confusion, abnormal gait, vertigo Psychiatric: Denies: anxiety, depression, suicidal thoughts, homicidal thoughts , auditory hallucinations, visual hallucinations Endocrine: Denies: fatigue Hematological/Lymphatic: Denies: easy bleeding, easy bruising Allergic/Immunologic: Denies: facial swelling, urticaria Past Medical History - Past Medical History Medical history: Reports: atrial fibrillation, CHF, COPD, coronary artery disease, GERD, hypertension, myocardial infarction Surgical history: Reports: angioplasty/stent, hysterectomy, pacemaker/AICD Psychiatric history: Reports: anxiety, depression - Social History Smoking Status: Current every day smoker Smokeless Tobacco Status: No Alcohol use: Reports: none Drug use: Reports: none Physical Exam - General Limitations: no limitations General appearance: alert, in no apparent distress - Head Head exam: atraumatic, normocephalic, normal inspection - Eye Eye exam: Present: normal appearance, PERRL, EOMI - ENT ENT exam: normal exam, normal oropharynx, mucous membranes moist - Neck Neck exam: Present: normal inspection, full ROM, trachea midline - Chest Chest inspection: Present: normal inspection, symmetric chest wall rise - Respiratory Respiratory exam: Present: other (Some rales) - Abdominal Exam Abdominal exam: Present: soft, Non-Tender. Absent: tenderness, distention, guarding, rebound, rigidity - Extremities Exam Extremities exam: Present: normal inspection, full ROM. Absent: tenderness, pedal edema - Expanded Lower Extremity Exam Neurovascular/Tendon exam: Absent: motor deficit, sensory deficit, tendon deficit Gait: not tested/not observed - Back Exam Back exam: Present: normal inspection, full ROM. Absent: tenderness - Neurological Exam Neurological exam: Present: alert, oriented X3 - Psychiatric Psychiatric exam: Present: normal affect, normal mood - Skin Skin exam: Present: warm, dry, intact, normal color Course - Reevaluation(s) Reevaluation #1: 71-year-old with increasing lower extremity edema and shortness of breath with a history of CHF. BNP is elevated although chest x-ray shows no acute change. Has exertional dyspnea were not go ahead and admit her for evaluation. Time: 13:32 - Consultations Consultation #1: Test with Dr. Pineda, admit. Time: 13:32 Vital Signs Temperature 98.3 F 11/10/16 11:30 Pulse Rate 89 11/10/16 11:30 Respiratory Rate 18 11/10/16 11:30 Blood Pressure 118/92 11/10/16 11:30 O2 Sat by Pulse Oximetry 91 11/10/16 11:30 Temperature 98.3 F 11/10/16 11:30 Pulse Rate 89 11/10/16 11:30 Respiratory Rate 18 11/10/16 11:30 Blood Pressure 118/92 11/10/16 11:30 O2 Sat by Pulse Oximetry 91 11/10/16 11:30 Oxygen Delivery Oxygen Delivery Room Air Shortness of Breath/Dyspnea - Lab Data Result diagrams: 11/10/16 11:15 11/10/16 11:15 Lab Results 11/10/16 11/10/16 11/10/16 Range/Units 11:15 11:15 11:15 WBC 11.2 H (4.3-11.1) K/mcL RBC 4.76 (3.82-4.97) M/mcL Hgb 14.0 (11.5-15.4) g/dL Hct 45.3 H (35.3-44.9) % MCV 95.2 (83.0-100.0) fL MCH 29.4 (28.0-33.3) pg MCHC 30.9 L (31.6-35.5) g/dL RDW 14.8 H (11.5-14.5) % Plt Count 238 (140-400) K/mcL MPV 11.0 (9.4-12.4) fL Immature Gran % 1.3 (0-4) % Seg Neutrophils % 84.1 % Lymphocytes % 10.6 % Monocytes % 3.5 % Eosinophils % 0.2 % Basophils % 0.3 % Neutrophils # 9.4 H (1.6-8.9) K/mcL Lymphocytes # 1.2 (0.6-4.6) K/mcL Monocytes # 0.4 (0.0-1.3) K/mcL Eosinophils # 0.0 (0.0-0.6) K/mcL Basophils # 0.0 (0.0-0.2) K/mcL Sodium 145 (136-145) mEq/L Potassium 3.5 (3.5-4.5) mEq/L Chloride 102 (98-109) mEq/L Carbon Dioxide 33 H (19-29) mEq/L BUN 19 (7-20) mg/dL Creatinine 1.08 (0.57-1.11) mg/dL Est GFR ( Amer) > 60 (> 60) Est GFR (Non-Af Amer) 50 L (> 60) BUN/Creatinine Ratio 18 (6-26) Glucose 170 H (70-99) mg/dL Calculated Osmolality 306 H (280-300) Lactic Acid 1.9 (0.5-2.2) mmol/L Calcium 10.2 (8.6-10.8) mg/dL Troponin I (0-0.03) ng/mL B-Natriuretic Peptide (0-100) pg/mL 11/10/16 11/10/16 Range/Units 11:15 11:15 WBC (4.3-11.1) K/mcL RBC (3.82-4.97) M/mcL Hgb (11.5-15.4) g/dL Hct (35.3-44.9) % MCV (83.0-100.0) fL MCH (28.0-33.3) pg MCHC (31.6-35.5) g/dL RDW (11.5-14.5) % Plt Count (140-400) K/mcL MPV (9.4-12.4) fL Immature Gran % (0-4) % Seg Neutrophils % % Lymphocytes % % Monocytes % % Eosinophils % % Basophils % % Neutrophils # (1.6-8.9) K/mcL Lymphocytes # (0.6-4.6) K/mcL Monocytes # (0.0-1.3) K/mcL Eosinophils # (0.0-0.6) K/mcL Basophils # (0.0-0.2) K/mcL Sodium (136-145) mEq/L Potassium (3.5-4.5) mEq/L Chloride (98-109) mEq/L Carbon Dioxide (19-29) mEq/L BUN (7-20) mg/dL Creatinine (0.57-1.11) mg/dL Est GFR ( Amer) (> 60) Est GFR (Non-Af Amer) (> 60) BUN/Creatinine Ratio (6-26) Glucose (70-99) mg/dL Calculated Osmolality (280-300) Lactic Acid (0.5-2.2) mmol/L Calcium (8.6-10.8) mg/dL Troponin I 0.02 (0-0.03) ng/mL B-Natriuretic Peptide 623 H (0-100) pg/mL - EKG Data EKG attestation: Yes I reviewed and interpreted this EKG. Rate: Reports: tachycardia Rhythm: Reports: A.Fib Interpretation: Reports: no acute changes
[2016-11-10 11:42] LABS: Basophils % 0.3 %; Eosinophils % 0.2 %; Hematocrit 45.3 % (35.3-44.9); Immature Granulocytes % 1.3 % (0-4); Lymphocytes # 1.2 K/mcL (0.6-4.6); Lymphocytes % 10.6 %; Mean Corpuscular HGB Conc 30.9 g/dL (31.6-35.5); Mean Corpuscular Hemoglobin 29.4 pg (28.0-33.3); Mean Corpuscular Volume 95.2 fL (83.0-100.0); Monocytes # 0.4 K/mcL (0.0-1.3); Monocytes % 3.5 %; Neutrophils # 9.4 K/mcL (1.6-8.9); Platelet Count 238 K/mcL (140-400); Red Blood Count 4.76 M/mcL (3.82-4.97); Red Cell Distribution Width 14.8 % (11.5-14.5); Segmented Neutrophils % 84.1 %
[2016-11-10 11:55] LABS: BUN/Creatinine Ratio 18 (6-26); Blood Urea Nitrogen 19 mg/dL (7-20); Calcium 10.2 mg/dL (8.6-10.8); Carbon Dioxide 33 mEq/L (19-29); Chloride 102 mEq/L (98-109); Glucose 170 mg/dL (70-99); Osmolality,Calculated 306 (280-300); Potassium 3.5 mEq/L (3.5-4.5); Sodium 145 mEq/L (136-145); eGFR For African Americans > 60 (> 60); eGFR For Non-African Americans 50 (> 60)
[2016-11-10] MEDS ORDERED: Furosemide 40 MG/4 ML VIAL IVP ONE (13:03)
[2016-11-10] MEDS ORDERED: Acetaminophen 325 MG TABLET PO PRN (14:38)
[2016-11-10] MEDS ORDERED: Naloxone 0.4 MG/ML INJ IVP PRN (14:38)
[2016-11-10] MEDS ORDERED: Ondansetron ODT 4 MG TAB.RAPDIS SL PRN (14:38)
[2016-11-10] MEDS ORDERED: Albuterol 2.5 MG/3 ML NEBULIZER IH PRN (14:43)
--- NOTE | 2016-11-10 14:49 | Internal Med History&Physical ---
<Andrez Pineda T - Last Filed: 11/10/16 16:11> Date of Encounter: 11/10/16 Internal Medicine - H&P: HPI History of present illness: Ms. Rodarte is a 71 year old female Internal Medicine - H&P: Meds Apixaban [Eliquis] 5 mg PO BID 08/04/16 [History] Clopidogrel [Plavix] 75 mg PO DAILY 08/04/16 [History] Ferrous Sulfate 325 mg PO DAILY 08/04/16 [History] Fluticasone/Salmeterol [Advair 500-50 Diskus] 1 each IH BID 08/04/16 [History] Lisinopril [Zestril] 5 mg PO DAILY 08/04/16 [History] Metoprolol [Lopressor] 50 mg PO TID 08/04/16 [History] Pantoprazole Sodium [Protonix] 40 mg PO DAILY 08/04/16 [History] Potassium Chloride [K-Tab ER] 20 meq PO DAILY 08/04/16 [History] Pravastatin Sodium [Pravachol] 80 mg PO HS 08/04/16 [History] Sennosides/Docusate Sodium [Senna-S Tablet] 1 each PO DAILY PRN 08/04/16 [ History] predniSONE [PredniSONE] 10 mg PO DAILY #41 tablet 08/06/16 [Rx] Furosemide [Lasix] 80 mg PO DAILY 11/10/16 [History] Ipratropium/Albuterol Neb [Duoneb] 3 ml IH Q6HR 11/10/16 [History] Trazodone HCl 100 mg PO HS 11/10/16 [History] Allergies Iodinated Contrast- Oral and IV Dye [Iodinated Contrast Media - Oral and] Adverse Reaction (Verified 11/10/16 15:03) See Comments patient unsure of what happens with this??? Sulfa (Sulfonamide Antibiotics) Adverse Reaction (Verified 10/06/16 20:40) Hives tape Adverse Reaction (Uncoded 08/04/16 12:35) Hives All Systems PM: A 10-system review of systems was performed and is negative for pertinent findings except as documented above in the HPI. - Constitutional Vitals: Temp Pulse Resp BP Pulse Ox 98.3 F 90 18 145/88 93 11/10/16 11:30 11/10/16 14:03 11/10/16 15:57 11/10/16 14:25 11/10/16 15:57 Internal Med - H&P Results - Labs CBC & Chem 7: 11/10/16 11:15 11/10/16 11:15 - Attending Attestation I have independently seen and examined this patient. Plan of care has been discussed with VALENTÍN Estrada whose documentation reflects our plan of care Patient seen with her daughter at the bedside, reports 2 days history of cough productive of phlegm, shortness of breath and worsening leg edema as well as fatigue. Patient has a PMH of CHFrEF, Afib with PCM, and COPD on home O2 at night, JORGE, active tobacco abuse. Physical exam remarkable for elderly woman, not in distress, flat affect, no neurologic deficits, AAOX3, chest exam with diffuse bilateral equal expiratory wheezing, fine crackles at the lung bases, O2 saturation was 92% on room air. Heart sounds S1, S2, regular at time of review, no m/g/r, abdomen is benign, 1+ pitting edema up to the ankle. Labs and imaging reviewed: WBC 11.2 with left shift, BNP 623, metabolic alkalosis. CXR no infiltrates, no pulmonary vascular congestion A/P: Acute bronchitis with COPDE, CHFE. Agree with bronchodilators, azithromycin , strict intake/output, daily weights, fluid restriction, NRT. Rest of details as in VALENTÍN Castillo documentation, which I agree with <Fabienne Estrada - Last Filed: 11/10/16 22:43> Date of Encounter: 11/10/16 Time of Encounter: 14:46 Assessment and Plan (1) Combined systolic and diastolic heart failure Current visit: Yes Status: Acute Patient with increased shortness of breath, and increased BLE swelling. BNP elevated to 623. CXR showed no evidence of acute cardiopulmonary disease. She has crackles in the bases on exam. Patient takes 80mg of lasix PO daily and reports she's taken her dose today. 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 Qualifiers: Heart failure chronicity: acute on chronic Qualified Code(s): I50.43 - Acute on chronic combined systolic (congestive) and diastolic (congestive) heart failure (2) COPD exacerbation Current visit: Yes Status: Acute Patient with increased shortness of breath and non-productive cough. Lungs with bilateral wheezing. WBC mildly elevated at 11.2 CXR shows no evidence of acute cardiopulmonary disease. Dyspnea likely secondary to a combination of COPD and CHF exacerbations. Duoneb treatments QID albuterol nebulizer Q2hr PRN budesonide/formotorol BID 40mg Prednisone daily Azithromycin 500mg IVPB daily titrate oxygen to maintain saturation > 92%. (3) Atrial fibrillation Current visit: Yes Status: Acute Patient on metoprolol for rate control and Eliquis for anticoagulation. Continue home doses of medications. Qualifiers: Atrial fibrillation type: chronic Qualified Code(s): I48.2 - Chronic atrial fibrillation (4) Nicotine dependence Current visit: No Status: Chronic Patient reports she smokes 1.5 PPD despite being diagnosed with cardiovascular disease and COPD. Encouraged smoking cessation, patient not ready to quit. Smoking cessation education ordered, nicotine patch ordered. Qualifiers: Nicotine product type: cigarettes Substance use status: other nicotine- induced disorder Qualified Code(s): F17.218 - Nicotine dependence, cigarettes , with other nicotine-induced disorders (5) Sleep apnea Current visit: Yes Status: Acute Respiratory therapy consulted for CPAP. Qualifiers: Sleep apnea type: obstructive Qualified Code(s): G47.33 - Obstructive sleep apnea (adult) (pediatric) (6) DVT prophylaxis Current visit: Yes Status: Acute anti-embolic stockings Patient on Eliquis for afib, additional pharmacologic prophylaxis is not warranted. Internal Medicine - H&P: HPI Chief complaint: shortness of breath Admitted From: Emergency Dept Plans for Post Hospital Care: Home History of present illness: Ms. Rodarte is a 71 year old female with hypertension, hyperlipidemia, coronary artery disease status post CABG, atrial fibrillation, pacemaker AICD, COPD, congestive heart failure presented to the emergency department today with complaints of increased shortness of breath and cough. Patient reports that started a couple days ago she noted a nonproductive cough, shortness of breath, wheezing, and increased bilateral lower extremity swelling. She reports her feet feel like they are going to pop because they are so swollen. She reports headache on and off, denies any nasal congestion sinus congestion. She denies any chest pain, or palpitations. She had some nausea but no vomiting, no abdominal pain or diarrhea. Evaluation in the emergency department revealed elevated BNP of 623 up from previous value of 452. Chest x-ray showed no evidence of acute cardiopulmonary disease. White blood cell count was normal at 11.2. On exam, patient alert and oriented, in no acute distress. Lungs with bilateral wheezes and crackles in the bases. Heart had irregular rhythm and normal rate. Bilateral lower extremity with +3 pitting edema. Past Med Surg Social Fam HX - Past Medical History Medical history: atrial fibrillation, CHF, COPD, coronary artery disease, GERD, hypertension, myocardial infarction Psychiatric history: anxiety, depression - Past Surgical History Surgical History: angioplasty/stent, coronary bypass (CABG), hysterectomy, pacemaker/AICD - Social History Smoking Status: Current every day smoker (70 pack year history) Packs per day: 1.5 Smokeless Tobacco Status: No Alcohol use: none Drug use: none - Family History Father Adopted: No Family Member Ethnicity: Non- Living Status: Age at : 36 Cause of : MS Hx Family Cardiac Disorders: Yes Hx Family Respiratory Disorders: No Hx Family Cancer: No Hx Family GI Disorders: No Hx Family Endocrine Disorder: No Hx Family Neuromuscular Disorders: No Hx Family Neurologic Disorders: No Hx Family HEENT Disorders: No Hx Family Autoimmune Disorders: No Mother Living Status: Age at : 87 Hx Family Endocrine Disorder: Yes (DM) All Systems PM: A 10-system review of systems was performed and is negative for pertinent findings except as documented above in the HPI. - Constitutional Constitutional: no chills, no fever(s), no night sweats - EENT Eyes: no change in vision, no discharge, no pain, no photophobia Ears: no ear discharge, no ear pain, no tinnitus Nose, mouth and throat: no dysphagia, no nasal discharge, no neck pain, no sore throat - Cardiovascular Cardiovascular ROS IM: dyspnea, dyspnea on exertion, edema, no chest pain, no diaphoresis, no lightheadedness, no palpitations, no syncope - Respiratory Respiratory: cough, dyspnea, dyspnea on exertion, wheezing, no excessive phlegm production - Gastrointestinal Gastrointestinal: nausea, no abdominal pain, no diarrhea, no hematemesis, no hematochezia, no melena, no vomiting - Genitourinary Genitourinary: no change in urinary stream, no dysuria, no flank pain, no hematuria - Musculoskeletal Musculoskeletal ROS IM: no numbness, no tingling - Integumentary Integumentary IM: no rash, no unusual bruising - Neurological Neurological ROS: headache(s), no confusion, no convulsions, no focal weakness, no numbness, no tingling, no tremor(s) - Hematologic/Lymphatic Hematologic/Lymphatic: easy bruising - Constitutional Vitals: Temp Pulse Resp BP Pulse Ox 98.3 F 90 18 145/88 93 11/10/16 11:30 11/10/16 14:03 11/10/16 14:25 11/10/16 14:25 11/10/16 14:03 General appearance: Present: A&O X 3, pleasant, no acute distress - Head Head exam: Present: atraumatic, normocephalic - Eye Eye exam: Present: PERRL, conjuntiva pink, sclera anicteric Pupils: Present: PERRL - Neck Neck exam general surgery: Present: supple, trachea midline. Absent: lymphadenopathy - Respiratory Respiratory exam: Present: rales, wheezes. Absent: accessory muscle use, rhonchi - Cardiovascular Cardiovascular exam: Present: irregular rhythm, +S1, +S2. Absent: diastolic murmur, gallop, rubs, systolic murmur - GI/Abdominal GI/Abdominal exam: Present: normal bowel sounds, soft, no peritoneal signs. Absent: distended, tenderness - Extremities Exam Extremities exam: Present: pedal edema (BLE +3 pitting edema), warm, radial pulses palpable and symetrical. Absent: calf tenderness, cyanotic - Neurological Exam Neurological exam: Present: CN II-XII intact, oriented X3, no focal deficits. Absent: pronater drift, facial droop, speech deficit - Skin Skin exam: Present: dry, intact Internal Med - H&P Results - Labs CBC & Chem 7: 11/10/16 11:15 11/10/16 11:15 Labs: All Lab Results (24 Hours) 11/10/16 11/10/16 11/10/16 Range/Units 11:15 11:15 11:15 WBC 11.2 H (4.3-11.1) K/mcL RBC 4.76 (3.82-4.97) M/mcL Hgb 14.0 (11.5-15.4) g/dL Hct 45.3 H (35.3-44.9) % MCV 95.2 (83.0-100.0) fL MCH 29.4 (28.0-33.3) pg MCHC 30.9 L (31.6-35.5) g/dL RDW 14.8 H (11.5-14.5) % Plt Count 238 (140-400) K/mcL MPV 11.0 (9.4-12.4) fL Immature Gran % 1.3 (0-4) % Seg Neutrophils % 84.1 % Lymphocytes % 10.6 % Monocytes % 3.5 % Eosinophils % 0.2 % Basophils % 0.3 % Neutrophils # 9.4 H (1.6-8.9) K/mcL Lymphocytes # 1.2 (0.6-4.6) K/mcL Monocytes # 0.4 (0.0-1.3) K/mcL Eosinophils # 0.0 (0.0-0.6) K/mcL Basophils # 0.0 (0.0-0.2) K/mcL Sodium 145 (136-145) mEq/L Potassium 3.5 (3.5-4.5) mEq/L Chloride 102 (98-109) mEq/L Carbon Dioxide 33 H (19-29) mEq/L BUN 19 (7-20) mg/dL Creatinine 1.08 (0.57-1.11) mg/dL Est GFR ( Amer) > 60 (> 60) Est GFR (Non-Af Amer) 50 L (> 60) BUN/Creatinine Ratio 18 (6-26) Glucose 170 H (70-99) mg/dL Calculated Osmolality 306 H (280-300) Lactic Acid 1.9 (0.5-2.2) mmol/L Calcium 10.2 (8.6-10.8) mg/dL Troponin I (0-0.03) ng/mL B-Natriuretic Peptide (0-100) pg/mL 11/10/16 11/10/16 Range/Units 11:15 11:15 WBC (4.3-11.1) K/mcL RBC (3.82-4.97) M/mcL Hgb (11.5-15.4) g/dL Hct (35.3-44.9) % MCV (83.0-100.0) fL MCH (28.0-33.3) pg MCHC (31.6-35.5) g/dL RDW (11.5-14.5) % Plt Count (140-400) K/mcL MPV (9.4-12.4) fL Immature Gran % (0-4) % Seg Neutrophils % % Lymphocytes % % Monocytes % % Eosinophils % % Basophils % % Neutrophils # (1.6-8.9) K/mcL Lymphocytes # (0.6-4.6) K/mcL Monocytes # (0.0-1.3) K/mcL Eosinophils # (0.0-0.6) K/mcL Basophils # (0.0-0.2) K/mcL Sodium (136-145) mEq/L Potassium (3.5-4.5) mEq/L Chloride (98-109) mEq/L Carbon Dioxide (19-29) mEq/L BUN (7-20) mg/dL Creatinine (0.57-1.11) mg/dL Est GFR ( Amer) (> 60) Est GFR (Non-Af Amer) (> 60) BUN/Creatinine Ratio (6-26) Glucose (70-99) mg/dL Calculated Osmolality (280-300) Lactic Acid (0.5-2.2) mmol/L Calcium (8.6-10.8) mg/dL Troponin I 0.02 (0-0.03) ng/mL B-Natriuretic Peptide 623 H (0-100) pg/mL - Diagnostic Studies Chest x-ray Additional comments: Chest X-Ray 11/10/16 11:17 IMPRESSION: No evidence of acute cardiopulmonary disease. D/ / Jonathon Scott MD / Jonathon Scott MD Interpreting Provider: Jonathon Scott MD
[2016-11-10] MEDS ORDERED: Sennosides/Docusate Sodium TABLET PO PRN (15:14)
[2016-11-10] MEDS: Ipratropium/Albuterol Neb 3 ML IH SCH ×2 (15:53→21:53)
--- NOTE | 2016-11-10 16:27 | Electrocardiograph Report ---
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1945 Requested By: Raad Hyman Order Number: [id number] Reading MD: Pro Burgos MD Measurements Intervals [place] Rate: 100 P: [place]: 0 QRS: -29 QRSD: 105 T: 203 QT: 356 QTc: 413 Interpretive Statements ATRIAL FIBRILLATION WITH RAPID VENTRICULAR RESPONSE BORDERLINE LEFT AXIS DEVIATION [QRS AXIS < -20] VOLTAGE CRITERIA FOR LVH [MEETS CRITERIA IN ONE OF: R(aVL), S(V1), R(V5), R(V5/V6) +S(V1)] ST DEVIATION AND MODERATE T-WAVE ABNORMALITY, CONSIDER LATERAL ISCHEMIA [-0.1+ mV T WAVE IN I/aVL/V5/V6] ST DEVIATION AND MODERATE T-WAVE ABNORMALITY, CONSIDER INFERIOR ISCHEMIA [-0.1+ mV T WAVE IN II/aVF] Electronically Signed On 11-10-2016 16:25:48 EDT by Pro Burgos MD
[2016-11-10] MEDS: Nicotine 21 MG PATCH.TD24 TD SCH (16:43)
[2016-11-10] MEDS: Azithromycin 500 MG in D5% in Water 250 ML IVPB SCH (16:44)
[2016-11-10] MEDS: predniSONE 20 MG TABLET PO SCH (16:44)
[2016-11-10] MEDS: APIXABAN 5 MG TABLET PO SCH (20:12)
[2016-11-10] MEDS: traZODone 50 MG TABLET PO SCH (20:12)
[2016-11-10] MEDS: Furosemide 40 MG/4 ML VIAL IVP SCH ×2 (20:12→20:18)
[2016-11-10] MEDS: Budesonide/Formoterol 160/4.5 MDI IH SCH (21:54)
[2016-11-11 01:31] LABS: Basophils % 0.1 %; Hematocrit 39.3 % (35.3-44.9); Hemoglobin 12.6 g/dL (11.5-15.4); Immature Granulocytes % 0.8 % (0-4); Lymphocytes # 0.9 K/mcL (0.6-4.6); Lymphocytes % 9.2 %; Mean Corpuscular HGB Conc 32.1 g/dL (31.6-35.5); Mean Corpuscular Volume 93.6 fL (83.0-100.0); Monocytes # 0.3 K/mcL (0.0-1.3); Monocytes % 2.7 %; Platelet Count 221 K/mcL (140-400); Red Cell Distribution Width 14.8 % (11.5-14.5); Segmented Neutrophils % 87.2 %
[2016-11-11 01:50] LABS: BUN/Creatinine Ratio 19 (6-26); Blood Urea Nitrogen 19 mg/dL (7-20); Calcium 9.2 mg/dL (8.6-10.8); Carbon Dioxide 27 mEq/L (19-29); Chloride 101 mEq/L (98-109); Chol/HDL Ratio 4.8 (0-4.9); Cholesterol 260 mg/dL (< 200); Glucose 151 mg/dL (70-99); HDL Cholesterol 54 mg/dL (40-59); LDL Cholesterol,Calculated 189 mg/dL (0-99); Osmolality,Calculated 291 (280-300); Sodium 138 mEq/L (136-145); Triglycerides 87 mg/dL (< 150); eGFR For African Americans > 60 (> 60); eGFR For Non-African Americans 53 (> 60)
[2016-11-11 01:54] LABS: Potassium 4.7 mEq/L (3.5-4.5)
[2016-11-11] MEDS: Ipratropium/Albuterol Neb 3 ML IH SCH ×4 (04:38→22:12)
[2016-11-11] MEDS: APIXABAN 5 MG TABLET PO SCH ×2 (08:32→22:30)
[2016-11-11] MEDS: Nicotine 21 MG PATCH.TD24 TD SCH (08:33)
[2016-11-11] MEDS: Furosemide 40 MG/4 ML VIAL IVP SCH (08:33)
[2016-11-11] MEDS: predniSONE 20 MG TABLET PO SCH (08:33)
--- NOTE | 2016-11-11 09:58 | Internal Med Progress Note ---
Date of Encounter: 11/11/16 Time of Encounter: 09:56 - Assessment and plan (1) Combined systolic and diastolic heart failure Current Visit: Yes Status: Acute Assessment and plan: Patient presented with dyspnea, hypoxia, elevated BNP and pedal edema. Continue IV Lasix, fluid restriction, urine output monitoring. Continue JAKE inhibitor and beta patti. Echocardiogram from July 2016 shows mild to moderately decreased EF around 40-45%, regional wall motion abnormalities, biatrial dilation, mild right ventricular hypokinesis. Continue telemetry monitoring. Qualifiers: Heart failure chronicity: acute on chronic Qualified Code(s): I50.43 - Acute on chronic combined systolic (congestive) and diastolic (congestive) heart failure (2) Acute and chronic respiratory failure Current Visit: Yes Status: Acute Assessment and plan: Due to underlying CHF, COPD, OHS. Continue to treat underlying causes along with supplemental oxygen. Qualifiers: Respiratory failure complication: hypoxia Qualified Code(s): J96.21 - Acute and chronic respiratory failure with hypoxia (3) COPD exacerbation Current Visit: Yes Status: Acute Assessment and plan: Improving. Continue macrolides, oral steroids, scheduled bronchodilators and inhaled corticosteroids. Supportive care and supplemental oxygen. Patient is noted to be on home oxygen along with nocturnal CPAP. (4) CAD (coronary artery disease) Current Visit: Yes Status: Chronic Assessment and plan: Continue aspirin, Plavix, beta patti and statin. Qualifiers: Coronary Disease-Associated Artery/Lesion type: bypass graft [place] vs. transplanted heart: [place] heart Associated angina: without angina Qualified Code(s): I25.810 - Atherosclerosis of coronary artery bypass graft(s) without angina pectoris (5) CKD (chronic kidney disease) Current Visit: Yes Status: Chronic Assessment and plan: Serum creatinine noted to be at baseline. Continue to monitor and avoid new nephrotoxic agents. Qualifiers: Chronic kidney disease stage: stage 3 (moderate) Qualified Code(s): N18.3 - Chronic kidney disease, stage 3 (moderate) (6) Hypertension Current Visit: Yes Status: Chronic Qualifiers: Hypertension type: essential hypertension Qualified Code(s): I10 - Essential (primary) hypertension (7) Nicotine dependence Current Visit: Yes Status: Chronic Assessment and plan: Continue nicotine transdermal patch. Qualifiers: Nicotine product type: cigarettes Substance use status: other nicotine- induced disorder Qualified Code(s): F17.218 - Nicotine dependence, cigarettes , with other nicotine-induced disorders (8) Atrial fibrillation Current Visit: Yes Status: Chronic Assessment and plan: Currently rate controlled. Continue anticoagulation with Eliquis. Qualifiers: Atrial fibrillation type: chronic Qualified Code(s): I48.2 - Chronic atrial fibrillation - Subjective Interval history: Reports feeling much better; able to take a bedbath by herself; improved dyspnea ; reports some ankle and lower leg swelling, no chest pain, cough, orthopnea; - Constitutional Vitals: Temp Pulse Resp BP Pulse Ox 97.7 F 105 17 111/65 90 11/11/16 07:13 11/11/16 08:25 11/11/16 07:13 11/11/16 08:25 11/11/16 08:35 General appearance: Present: A&O X 3, answers questions appropriately - Respiratory Respiratory exam: Present: CTAB (B/L coarse breath sounds). Absent: accessory muscle use, rales, rhonchi, wheezes - Cardiovascular Cardiovascular exam: Present: irregular rhythm, +S1, +S2. Absent: diastolic murmur, gallop, rubs, systolic murmur - GI/Abdominal GI/Abdominal exam: Present: normal bowel sounds, soft, no peritoneal signs. Absent: distended, tenderness - Extremities Exam Extremities exam: Present: full ROM, pedal edema (2+ edema in ankles and feet), warm, radial pulses palpable and symetrical. Absent: calf tenderness, cyanotic - Neurological Exam Neurological exam: Present: CN II-XII intact, oriented X3, no focal deficits. Absent: pronater drift, facial droop, speech deficit Internal Medicine: Result - Labs CBC & Chem 7: 11/11/16 01:05 11/11/16 01:05 Labs: Short CBC 11/11/16 Range/Units 01:05 WBC 9.2 (4.3-11.1) K/mcL Hgb 12.6 (11.5-15.4) g/dL Hct 39.3 (35.3-44.9) % Plt Count 221 (140-400) K/mcL Neutrophils # 8.0 (1.6-8.9) K/mcL BMP 11/11/16 01:05 Sodium 138 Potassium 4.7 H D Chloride 101 Carbon Dioxide 27 BUN 19 Creatinine 1.02 Glucose 151 H Calcium 9.2 Cardiac Enzymes 11/10/16 11/11/16 Range/Units 17:58 01:05 Troponin I 0.02 0.02 (0-0.03) ng/mL Consult Discharge Plan - Plan Referrals: Hal Monroy MD [Primary Care Provider] -
[2016-11-11] MEDS: Budesonide/Formoterol 160/4.5 MDI IH SCH ×2 (10:03→22:12)
[2016-11-11] MEDS: Azithromycin 500 MG in D5% in Water 250 ML IVPB SCH (15:43)
[2016-11-11] MEDS ORDERED: 0.9 % Sodium Chloride 250 ML IVC ONE (17:35)
[2016-11-11] MEDS: traZODone 50 MG TABLET PO SCH (22:35)
[2016-11-12 03:52] LABS: BUN/Creatinine Ratio 29 (6-26); Calcium 8.7 mg/dL (8.6-10.8); Carbon Dioxide 33 mEq/L (19-29); Chloride 101 mEq/L (98-109); Glucose 154 mg/dL (70-99); Osmolality,Calculated 302 (280-300); Potassium 3.7 mEq/L (3.5-4.5); Sodium 141 mEq/L (136-145); eGFR For African Americans > 60 (> 60); eGFR For Non-African Americans 50 (> 60)
[2016-11-12 03:57] LABS: Blood Urea Nitrogen 31 mg/dL (7-20)
[2016-11-12] MEDS: Ipratropium/Albuterol Neb 3 ML IH SCH ×4 (04:32→23:20)
[2016-11-12] MEDS ORDERED: Furosemide 40 MG TABLET PO SCH (08:15)
--- NOTE | 2016-11-12 08:41 | Cardiology Consult Note ---
Date of Encounter: 11/12/16 Time of Encounter: 08:39 Assessment and Plan (1) Acute on chronic systolic (congestive) heart failure Current Visit: Yes Status: Acute Known EF 40-45% on echo 07/2016, stable EF since 2012. BNP 623 with symptoms of worsening dyspnea, lower extremity edema and weight gain. Agree with IV Lasix 40mg BID. Recommend strict I/Os, daily weights, Na and fluid restriction. Pt reports feeling much better this AM. Anticipate sign off once seen and evaluated by Dr. Rodriguez. Can follow-up with Dr. Sun as outpt. (2) Ischemic cardiomyopathy Current Visit: Yes Status: Acute EF 40-45%. ICD in place. Continue BB. JAKE-I currently on hold due to hypotension. (3) Atrial fibrillation Current Visit: Yes Status: Chronic 24 hr tele AVG HR 103. HR currently 70s at bedside. Pt on Lopressor 50mg BID currently, was TID at home , but BP will not tolerate. If difficulty with rate control can consider Digoxin. Will not add currently since HR 70s. Anticoagulated on Eliquis. Pt on triple therapy ASA, Plavix, Eliquis due to RONEL 12/2015. No bleeding issues. Qualifiers: Atrial fibrillation type: chronic Qualified Code(s): I48.2 - Chronic atrial fibrillation (4) CAD (coronary artery disease) Current Visit: Yes Status: Chronic Hx of CABG and PCI. Most recent [facility] 12/2015 RONEL to mid PDA. ASA, Plavix, Statin, BB. Qualifiers: Coronary Disease-Associated Artery/Lesion type: bypass graft [place] vs. transplanted heart: [place] heart Associated angina: without angina Qualified Code(s): I25.810 - Atherosclerosis of coronary artery bypass graft(s) without angina pectoris Discussion w patient/family: The assessment and plan as outlined above was discussed with the patient and/or family members who expressed understanding and agreement. All questions were answered. Thank you for involving us in the care of your patient. Please call with any questions. I will discuss all the above with Dr. Rodriguez and make changes as necessary. History of Present Illness Consult date: 11/12/16 Requesting physician: Cathy Barron Consult reason: CHF Chief complaint: dyspnea, lower extremity edema History of present illness: Ms. Rodarte is a 71 year old female with PMH of hypertension, hyperlipidemia, coronary artery disease status post CABG and subsequent PCI, atrial fibrillation on Eliquis, pacemaker AICD, COPD, systolic CHF with known EF 40-45 % since 2012 that presented to the emergency department with complaints of increased shortness of breath and cough that started last weekend. She reports intermittent headache. She denies any chest pain or palpitations. She does report nec pain, feeling as if she is being choked. She had some nausea but no vomiting, no abdominal pain or diarrhea. Evaluation in the emergency department revealed elevated BNP of 623 up from previous value of 452. Chest x- ray showed no evidence of acute cardiopulmonary disease. White blood cell count was normal at 11.2. On exam, patient alert and oriented, in no acute distress. Pt states currently symptoms are much improved. Pt recently saw Dr. 10/26/16 and Lasix was increased. Despite this, symptoms worsened. She reports she is feeling much better this AM after receiving IV Lasix and dyspnea and lower extremity edema are improved. Recent CV testing: Echo 08/06/16 EF 40-45% with regional wall motion abnormalities. Mild RV hypokinesis, severely dilated left atrium, mild MR. [facility] 12/25/2015 Impressions: Left main coronary artery: severe ostial stenosis of 70-75% Left anterior descending coronary artery: Severe proximal stenosis of 95%. Left circumflex coronary artery: chronically occluded proximally SVG to LAD: occluded proximally SVG to RCA: Patent with no significant disease. The jump graft to PDA was occluded. The PDA has 75% stenosis. PCI/RONEL to mid PDA. Past Med Surg Social Fam HX - Past Medical History Medical history: atrial fibrillation, CHF, COPD, coronary artery disease, GERD, hypertension, myocardial infarction Psychiatric history: anxiety, depression - Past Surgical History Surgical History: angioplasty/stent, coronary bypass (CABG), hysterectomy, pacemaker/AICD - Social History Smoking Status: Current every day smoker (70 pack year history) Packs per day: 1.5 Smokeless Tobacco Status: No Alcohol use: none Drug use: none - Family History Father Adopted: No Family Member Ethnicity: Non- Living Status: Age at : 36 Cause of : [place] Hx Family Cardiac Disorders: Yes Hx Family Respiratory Disorders: No Hx Family Cancer: No Hx Family GI Disorders: No Hx Family Endocrine Disorder: No Hx Family Neuromuscular Disorders: No Hx Family Neurologic Disorders: No Hx Family HEENT Disorders: No Hx Family Autoimmune Disorders: No Mother Living Status: Age at : 87 Hx Family Endocrine Disorder: Yes (DM) Medications and Allergies Apixaban [Eliquis] 5 mg PO BID 08/04/16 [History] Clopidogrel [Plavix] 75 mg PO DAILY 08/04/16 [History] Ferrous Sulfate 325 mg PO DAILY 08/04/16 [History] Fluticasone/Salmeterol [Advair 500-50 Diskus] 1 each IH BID 08/04/16 [History] Lisinopril [Zestril] 5 mg PO DAILY 08/04/16 [History] Metoprolol [Lopressor] 50 mg PO TID 08/04/16 [History] Pantoprazole Sodium [Protonix] 40 mg PO DAILY 08/04/16 [History] Potassium Chloride [K-Tab ER] 20 meq PO DAILY 08/04/16 [History] Pravastatin Sodium [Pravachol] 80 mg PO HS 08/04/16 [History] Sennosides/Docusate Sodium [Senna-S Tablet] 1 each PO DAILY PRN 08/04/16 [ History] predniSONE [PredniSONE] 10 mg PO DAILY #41 tablet 08/06/16 [Rx] Furosemide [Lasix] 80 mg PO DAILY 11/10/16 [History] Ipratropium/Albuterol Neb [Duoneb] 3 ml IH Q6HR 11/10/16 [History] Trazodone HCl 100 mg PO HS 11/10/16 [History] Allergies Iodinated Contrast- Oral and IV Dye [Iodinated Contrast Media - Oral and] Adverse Reaction (Verified 11/10/16 15:03) See Comments patient unsure of what happens with this??? Sulfa (Sulfonamide Antibiotics) Adverse Reaction (Verified 10/06/16 20:40) Hives tape Adverse Reaction (Uncoded 08/04/16 12:35) Hives All Systems Review: A 10-system review of systems was performed and is negative for pertinent findings except as documented above in the HPI. - Constitutional Constitutional: headache(s) - Cardiovascular Cardiovascular: as per HPI, dyspnea at rest, dyspnea on exertion, leg edema - Respiratory Respiratory: cough, dyspnea Physical Examination Vital Signs, Last 4 Hours Temp Pulse Resp BP Pulse Ox 11/12/16 06:56 98.4 F 98 18 96/60 94 Vital Signs Temp Pulse Resp BP Pulse Ox 11/12/16 06:56 98.4 F 98 18 96/60 94 11/12/16 04:33 97.6 F 74 18 102/56 98 11/11/16 23:13 97.8 F 83 18 96/58 96 11/11/16 22:15 18 96 11/11/16 20:25 97.6 F 105 18 94/46 96 11/11/16 18:36 98/63 11/11/16 17:23 109 15 88/55 94 11/11/16 16:37 98.1 F 118 18 82/49 94 11/11/16 15:56 16 94 11/11/16 11:29 98.2 F 104 18 110/65 95 11/11/16 10:04 16 94 Intake and Output 11/11/16 11/12/16 11/12/16 23:59 07:59 15:59 Intake Total 770 / 770 Output Total 800 / 800 Balance 770 / 770 -800 / -800 Intake: IV Fluids 250 / 250 Zithromax 500 mg In 250 / 250 Dextrose 5% 250 ML @ 252 mls/hr IVPB Q24H [facility] Rx#: [id number] Oral 520 / 520 Output: Urine 800 / 800 Other: Meal Dinner Percent of Meal Consumed 80% Weight 67.8 kg Patient Weight 11/12/16 23:59 Weight 67.8 kg General: Conversant, No Apparent Distress HEENT: Atraumatic, Normocephaly, Mucus Membranes Moist Neck: Normal carotid pulses Cardiac: Other (irregularly irregular rhythm) Lungs: Other (mild bibasilar crackles) Neuro: Alert and responsive, No focal deficits noted Abdomen: Soft, Non-Tender Skin: No rashes noted on visualized skin Musculoskeletal: No Chest Wall Tenderness Extremities: Other (+1 BLE edema) Results 11/11/16 01:05 11/12/16 03:07 Lab Results 11/12/16 03:07 Sodium 141 Potassium 3.7 D Chloride 101 Carbon Dioxide 33 H BUN 31 H D Creatinine 1.07 Glucose 154 H Calcium 8.7 - Imaging and Cardiology Echo: report reviewed Cardiac cath: report reviewed - EKG Interpretation EKG results cardiology: personally reviewed (A-Fib, rate 100.), other (24 hr tele AVG HR 104, A-Fib, 4 beat run NSVT.) Consult Discharge Plan - Plan Referrals: Hal Monroy MD [Primary Care Provider] -
--- NOTE | 2016-11-12 09:14 | Internal Med Progress Note ---
Date of Encounter: 11/12/16 Time of Encounter: 09:13 - Assessment and plan (1) Combined systolic and diastolic heart failure Current Visit: Yes Status: Acute Assessment and plan: Improving clinically except ankle edema; noted to have episodes of hypotension and tachycardia, asymptomatic; will decrease Metoprolol to 25mg BID and Lasix to 20mg BID PO form; Cardiology consult appreciated, agree with current management, no new recommendations; Continue fluid restriction, urine output monitoring. Hold ACEI in light of hypotension; Echocardiogram from July 2016 shows mild to moderately decreased EF around 40-45%, regional wall motion abnormalities, biatrial dilation, mild right ventricular hypokinesis. Continue telemetry monitoring. Qualifiers: Heart failure chronicity: acute on chronic Qualified Code(s): I50.43 - Acute on chronic combined systolic (congestive) and diastolic (congestive) heart failure (2) Acute and chronic respiratory failure Current Visit: Yes Status: Resolved Assessment and plan: Due to underlying CHF, COPD, OHS. Improving, does not require supplemental O2 at rest, only nocturnal; patient does have home O2; Continue to treat underlying causes along with supplemental oxygen. Qualifiers: Respiratory failure complication: hypoxia Qualified Code(s): J96.21 - Acute and chronic respiratory failure with hypoxia (3) COPD exacerbation Current Visit: Yes Status: Acute Assessment and plan: Improving. Continue macrolides, oral steroids, scheduled bronchodilators and inhaled corticosteroids. Supportive care and supplemental oxygen. Patient is noted to be on home oxygen along with nocturnal CPAP. (4) CAD (coronary artery disease) Current Visit: Yes Status: Chronic Assessment and plan: Continue aspirin, Plavix, beta patti and statin. Qualifiers: Coronary Disease-Associated Artery/Lesion type: bypass graft [place] vs. transplanted heart: [place] heart Associated angina: without angina Qualified Code(s): I25.810 - Atherosclerosis of coronary artery bypass graft(s) without angina pectoris (5) CKD (chronic kidney disease) Current Visit: Yes Status: Chronic Assessment and plan: Serum creatinine noted to be at baseline. Continue to monitor and avoid new nephrotoxic agents. Qualifiers: Chronic kidney disease stage: stage 3 (moderate) Qualified Code(s): N18.3 - Chronic kidney disease, stage 3 (moderate) (6) Hypertension Current Visit: Yes Status: Chronic Assessment and plan: BP meds adjusted as mentioned above, due to hypotension; Qualifiers: Hypertension type: essential hypertension Qualified Code(s): I10 - Essential (primary) hypertension (7) Nicotine dependence Current Visit: Yes Status: Chronic Qualifiers: Nicotine product type: cigarettes Substance use status: other nicotine- induced disorder Qualified Code(s): F17.218 - Nicotine dependence, cigarettes , with other nicotine-induced disorders (8) Atrial fibrillation Current Visit: Yes Status: Chronic Assessment and plan: Currently rate controlled. Continue anticoagulation with Eliquis and Metoprolol ; Qualifiers: Atrial fibrillation type: chronic Qualified Code(s): I48.2 - Chronic atrial fibrillation - Subjective Interval history: Appears to be in good spirits, although reports she was unable to sleep well last night, would like to sleep now. No chest pain, cough, dyspnea; - Constitutional Vitals: Temp Pulse Resp BP Pulse Ox 98.4 F 98 18 96/60 94 11/12/16 06:56 11/12/16 06:56 11/12/16 06:56 11/12/16 06:56 11/12/16 06:56 General appearance: Present: A&O X 3, answers questions appropriately - Respiratory Respiratory exam: Present: CTAB. Absent: accessory muscle use, rales, rhonchi, wheezes - Cardiovascular Cardiovascular exam: Present: irregular rhythm, +S1, +S2. Absent: diastolic murmur, gallop, rubs, systolic murmur - GI/Abdominal GI/Abdominal exam: Present: normal bowel sounds, soft, no peritoneal signs. Absent: distended, tenderness - Extremities Exam Extremities exam: Present: pedal edema (B/L ankle edema), warm, radial pulses palpable and symetrical. Absent: calf tenderness, cyanotic Internal Medicine: Result - Labs CBC & Chem 7: 11/11/16 01:05 11/12/16 03:07 Labs: BMP 11/12/16 03:07 Sodium 141 Potassium 3.7 D Chloride 101 Carbon Dioxide 33 H BUN 31 H D Creatinine 1.07 Glucose 154 H Calcium 8.7 Consult Discharge Plan - Plan Referrals: Hal Monroy MD [Primary Care Provider] -
[2016-11-12] MEDS: Nicotine 21 MG PATCH.TD24 TD SCH (09:41)
[2016-11-12] MEDS: APIXABAN 5 MG TABLET PO SCH ×2 (09:41→21:40)
[2016-11-12] MEDS: predniSONE 20 MG TABLET PO SCH (09:41)
[2016-11-12] MEDS: Budesonide/Formoterol 160/4.5 MDI IH SCH ×2 (10:31→23:25)
[2016-11-12] MEDS: Azithromycin 500 MG in D5% in Water 250 ML IVPB SCH (15:35)
[2016-11-12] MEDS: Furosemide 40 MG TABLET PO SCH (15:35)
[2016-11-12] MEDS: traZODone 50 MG TABLET PO SCH (21:40)
[2016-11-13] MEDS: Ipratropium/Albuterol Neb 3 ML IH SCH ×2 (04:32→10:30)
[2016-11-13] MEDS: predniSONE 20 MG TABLET PO SCH (09:16)
[2016-11-13] MEDS: APIXABAN 5 MG TABLET PO SCH (09:17)
[2016-11-13] MEDS: Furosemide 40 MG TABLET PO SCH (09:17)
[2016-11-13] MEDS: Nicotine 21 MG PATCH.TD24 TD SCH (09:17)
[2016-11-13] MEDS: Budesonide/Formoterol 160/4.5 MDI IH SCH (10:30)
[2016-11-13 11:09] VITALS: BP 121/69
--- NOTE | 2016-11-13 11:25 | Discharge Summary ---
Date of Encounter: 11/13/16 Time of Encounter: 09:00 - Discharge Diagnosis (1) Combined systolic and diastolic heart failure Priority: Primary Status: Acute Qualifiers: Heart failure chronicity: acute on chronic Qualified Code(s): I50.43 - Acute on chronic combined systolic (congestive) and diastolic (congestive) heart failure (2) Acute and chronic respiratory failure Priority: Primary Status: Resolved Qualifiers: Respiratory failure complication: hypoxia Qualified Code(s): J96.21 - Acute and chronic respiratory failure with hypoxia (3) COPD exacerbation Priority: Primary Status: Acute (4) CAD (coronary artery disease) Priority: Secondary Status: Chronic Qualifiers: Coronary Disease-Associated Artery/Lesion type: bypass graft [place] vs. transplanted heart: [place] heart Associated angina: without angina Qualified Code(s): I25.810 - Atherosclerosis of coronary artery bypass graft(s) without angina pectoris (5) CKD (chronic kidney disease) Priority: Secondary Status: Chronic Qualifiers: Chronic kidney disease stage: stage 3 (moderate) Qualified Code(s): N18.3 - Chronic kidney disease, stage 3 (moderate) (6) Hypertension Priority: Secondary Status: Chronic Qualifiers: Hypertension type: essential hypertension Qualified Code(s): I10 - Essential (primary) hypertension (7) Nicotine dependence Priority: Secondary Status: Chronic Qualifiers: Nicotine product type: cigarettes Substance use status: other nicotine- induced disorder Qualified Code(s): F17.218 - Nicotine dependence, cigarettes , with other nicotine-induced disorders (8) Atrial fibrillation Priority: Secondary Status: Chronic Qualifiers: Atrial fibrillation type: chronic Qualified Code(s): I48.2 - Chronic atrial fibrillation - Discharge Medications Prescriptions: Furosemide [Lasix] 20 mg PO BIDDIURETIC #30 tablet Metoprolol [Lopressor] 25 mg PO BID #30 tablet predniSONE [PredniSONE] 40 mg PO DAILY #14 tablet Home Medications: Apixaban [Eliquis] 5 mg PO BID 08/04/16 [History] Clopidogrel [Plavix] 75 mg PO DAILY 08/04/16 [History] Ferrous Sulfate 325 mg PO DAILY 08/04/16 [History] Fluticasone/Salmeterol [Advair 500-50 Diskus] 1 each IH BID 08/04/16 [History] Pantoprazole Sodium [Protonix] 40 mg PO DAILY 08/04/16 [History] Potassium Chloride [K-Tab ER] 20 meq PO DAILY 08/04/16 [History] Pravastatin Sodium [Pravachol] 80 mg PO HS 08/04/16 [History] Sennosides/Docusate Sodium [Senna-S Tablet] 1 each PO DAILY PRN 08/04/16 [ History] Trazodone HCl 100 mg PO HS 11/10/16 [History] Furosemide [Lasix] 20 mg PO BIDDIURETIC #30 tablet 11/13/16 [Rx] Ipratropium/Albuterol Neb [Duoneb] 3 ml IH Q6HR PRN #30 11/13/16 [Rx] Metoprolol [Lopressor] 25 mg PO BID #30 tablet 11/13/16 [Rx] predniSONE [PredniSONE] 40 mg PO DAILY #14 tablet 11/13/16 [Rx] Allergies/Adverse Reactions: Allergies Iodinated Contrast- Oral and IV Dye [Iodinated Contrast Media - Oral and] Adverse Reaction (Verified 11/10/16 15:03) See Comments patient unsure of what happens with this??? Sulfa (Sulfonamide Antibiotics) Adverse Reaction (Verified 10/06/16 20:40) Hives tape Adverse Reaction (Uncoded 08/04/16 12:35) Hives Date of admission: 11/12/16 15:04 Primary care physician: Hal Monroy MD Discharging clinician: Cathy Barron Anticipated date of discharge: 11/13/16 - Patient Status Disposition: Home, Self-Care Condition: Fair Functional capacity at discharge: independent ambulation Overall status at discharge: patient is progressing back to baseline - Discharge Instructions Instructions: Heart Failure (DC), Atrial Fibrillation (DC) Follow Up With: Hal Monroy MD [Primary Care Provider] - 11/20/16 9:45 am Additional Instructions: F/up with PCP in 1-2 weeks - Diet and Activity Activity: resume usual activities as tolerated, wear oxygen at night, other ( use CPAP at night) Diet: low fat, low cholesterol, low salt diet Hospital course: Ms. Rodarte is a 71 year old female with the above medical problems who was admitted with worsening cough and shortness of breath. She was noted to have acute exacerbation of COPD and CHF. She was started on IV diuresis along with fluid restriction, beta patti and JAKE inhibitor were continued along with telemetry monitoring. She was treated with oral steroids, bronchodilators, inhaled corticosteroids and supplemental oxygen for COPD exacerbation. Her oxygen requirements gradually improved and respiratory distress resolved, she is noted to be saturating well on room air during the daytime. She was noted to have appropriate urine output and volume status somewhat improved, however patient was noted to have asymptomatic episodes of hypotension and tachycardia with systolic blood pressure in low 80s to high 70s at times. She was noted to be on 50 mg metoprolol 3 times a day at home and this has been currently adjusted to 25 mg twice daily. Lasix has been decreased to 20 mg twice daily. Patient's blood pressure and heart rate responded well to these adjustments and she is currently medically stable for discharge. Cardiology has seen the patient while in hospital and agrees with the management. Patient's daughter is tearful, overwhelmed and depressed and I have discussed regarding patient's plan of care multiple times during this admission. She requested for physical therapy evaluation, which was done and recommended patient had no needs at the time of discharge. Patient's daughter also requested for multiple DME needs like a new CPAP machine, wheelchair etc. and I reminded her that patient is able to ambulate independently and restricting her to a wheelchair would only worsen her functional status. She will discuss any further needs during outpatient PCP follow-up. - Time Spent with Patient Total time spent providing and/or coordinating discharge services: Greater than 30 minutes (40 min) - Constitutional Vitals: Temp Pulse Resp BP Pulse Ox 98.3 F 88 20 121/69 93 11/13/16 11:06 11/13/16 11:06 11/13/16 11:06 11/13/16 11:06 11/13/16 11:06 General appearance: Present: A&O X 3, answers questions appropriately - Respiratory Respiratory exam: Present: CTAB. Absent: accessory muscle use, rales, rhonchi, wheezes - Cardiovascular Cardiovascular exam: Present: irregular rhythm, +S1, +S2. Absent: diastolic murmur, gallop, rubs, systolic murmur
[2016-11-13] MEDS ORDERED: Azithromycin 250 MG TABLET PO SCH (16:00)
== END 2016-11-13 13:41 | disposition home or self-care (01) | DRG 291 ==
LOC: EMEROO 11:05 → 2ANU 11:05 → SUATTDRO 13:50 → 2ANU 15:00
PROVIDERS: ADMIT Internal Medicine; ATTEND Internal Medicine

== ENCOUNTER 2016-11-14 08:01 | Inpatient (IN) ==
[2016-11-14] MEDS ORDERED: Naloxone 0.4 MG/ML INJ IVP PRN (10:43)
[2016-11-14] MEDS ORDERED: Acetaminophen 325 MG TABLET PO PRN (10:50)
[2016-11-14] MEDS ORDERED: Ipratropium/Albuterol Neb 3 ML IH PRN (10:53)
--- NOTE | 2016-11-14 11:03 | Internal Med History&Physical ---
<RamsesJordyJody J - Last Filed: 11/14/16 11:53> Date of Encounter: 11/14/16 Time of Encounter: 11:03 Assessment and Plan (1) Atrial fibrillation with RVR Current visit: Yes Status: Acute Has known A. fib. Presented to outside hospital with worsening shortness of breath and found to be in A. fib with RVR at that time (HR 130s). Was given IV bolus Cardizem prior to transfer. Admission EKG with A. fib RVR HR 100s. Hemodynamically stable. Home beta patti was decreased last admission secondary to hypotension. Resume home beta patti, elquis. Cardiology consulted. Monitor on tele (2) COPD exacerbation Current visit: No Status: Acute On home O2. Just discharged 11/13/2016 after being treated for COPD exacerbation. Still with wheezing and shortness of breath on exam. Afebrile, WBC 13 K at outside hospital. No increase in sputum production. Hold on ATB at this time. Add low-dose IV steroids, DuoNeb's. Repeat chest x-ray pending (3) Acute on chronic systolic (congestive) heart failure Current visit: No Status: Acute TTE 07/2016 with EF 40-45%. Was just discharged 11/13/2016 after being treated for CHF exacerbation with IV Lasix. Now with persistent and worsening shortness of breath and worsening lower extremity edema per patient. Hold home Lasix for now, low-dose IV Lasix. Repeat chest x-ray, BNP, troponin, echo pending. JAKE inhibitor was discontinued last admission, continue to hold defer to cardiology. Daily swathi, I&Oskailyn (4) JORGE (obstructive sleep apnea) Current visit: Yes Status: Acute per hx. wears CPAP at home, daughter and patient report concerns that machine is not working correctly. Social work consult for assisting with new machine. Continue CPAP and patient (5) DVT prophylaxis Current visit: No Status: Acute [facility] Internal Medicine - H&P: HPI Chief complaint: shortness of breath Admitted From: Home Plans for Post Hospital Care: Home History of present illness: Ms. Rodarte is a 71 year old female past medical history COPD, CHF, A. fib, and JORGE who presented to outside hospital on 11/14/2016 with complaints of worsening shortness of breath. She was found to be in A. fib with RVR and was transferred to [facility] for further workup and treatment. Information obtained from chart review, patient report and daughter at bedside. Patient was just discharged yesterday (11/13/2016) after being treated for CHF, COPD exacerbation. Patient's daughter reports she was doing well when she was discharged yesterday, went out to dinner with the family and had no complaints. Daughter reports patient woke up this morning and was extremely short of breath, states she could not catch her breath and heart rate was in the 130s to 160s per home pulse ox machine. Daughter monitors pulse ox at home and saturation apparently 92% while on CPAP. Breathing was worse with exertion. And little to no relief with rest. Therefore daughter called the EMS and she was taken to [facility]. All my exam the patient said she feels fine, she does have some shortness of breath, denies chest pain. She reports leg swelling is getting worse. Daughter is concerned about Lasix metoprolol being decreased last admission. Daughter also reports concern over CPAP machine not working and requesting a new one. Past Med Surg Social Fam HX - Past Medical History Medical history: atrial fibrillation, CHF, COPD, coronary artery disease, GERD, hypertension, myocardial infarction Psychiatric history: anxiety, depression - Past Surgical History Surgical History: angioplasty/stent, coronary bypass (CABG), hysterectomy, pacemaker/AICD - Social History Smoking Status: Current every day smoker Smokeless Tobacco Status: No Alcohol use: none Drug use: none - Family History Father Adopted: No Family Member Ethnicity: Non- Living Status: Hx Family Cardiac Disorders: Yes Hx Family Respiratory Disorders: No Hx Family Cancer: No Hx Family GI Disorders: No Hx Family Endocrine Disorder: No Hx Family Neuromuscular Disorders: No Hx Family Neurologic Disorders: No Hx Family HEENT Disorders: No Hx Family Autoimmune Disorders: No Mother Living Status: Hx Family Endocrine Disorder: Yes (DM) Internal Medicine - H&P: Meds RX: Apixaban [Eliquis] 5 mg PO BID 08/04/16 [History] RX: Clopidogrel [Plavix] 75 mg PO DAILY 08/04/16 [History] RX: Ferrous Sulfate 325 mg PO DAILY 08/04/16 [History] RX: Fluticasone/Salmeterol [Advair 500-50 Diskus] 1 each IH BID 08/04/16 [ History] RX: Pantoprazole Sodium [Protonix] 40 mg PO DAILY 08/04/16 [History] RX: Potassium Chloride [K-Tab ER] 20 meq PO DAILY 08/04/16 [History] RX: Pravastatin Sodium [Pravachol] 80 mg PO HS 08/04/16 [History] RX: Sennosides/Docusate Sodium [Senna-S Tablet] 1 each PO DAILY PRN 08/04/16 [ History] RX: Trazodone HCl 100 mg PO HS 11/10/16 [History] RX: Furosemide [Lasix] 20 mg PO BIDDIURETIC #30 tablet 11/13/16 [Rx] RX: Ipratropium/Albuterol Neb [Duoneb] 3 ml IH Q6HR PRN #30 11/13/16 [Rx] RX: Metoprolol [Lopressor] 25 mg PO BID #30 tablet 11/13/16 [Rx] RX: predniSONE [PredniSONE] 40 mg PO DAILY #14 tablet 11/13/16 [Rx] Allergies Iodinated Contrast- Oral and IV Dye [Iodinated Contrast Media - Oral and] Adverse Reaction (Verified 11/10/16 15:03) See Comments patient unsure of what happens with this??? Sulfa (Sulfonamide Antibiotics) Adverse Reaction (Verified 10/06/16 20:40) Hives tape Adverse Reaction (Uncoded 08/04/16 12:35) Hives All Systems PM: A 10-system review of systems was performed and is negative for pertinent findings except as documented above in the HPI. - Constitutional Constitutional: no chills, no fever(s), no night sweats - EENT Eyes: no change in vision, no discharge, no pain, no photophobia Ears: no ear discharge, no ear pain, no tinnitus Nose, mouth and throat: no dysphagia, no nasal discharge, no neck pain, no sore throat - Cardiovascular Cardiovascular ROS IM: no chest pain, no diaphoresis, no dyspnea, no lightheadedness, no palpitations, no syncope - Respiratory Respiratory: dyspnea, dyspnea on exertion, no cough, no wheezing, no excessive phlegm production - Gastrointestinal Gastrointestinal: no abdominal pain, no diarrhea, no hematemesis, no hematochezia, no melena, no nausea, no vomiting - Genitourinary Genitourinary: no change in urinary stream, no dysuria, no flank pain, no hematuria - Musculoskeletal Musculoskeletal ROS IM: no numbness, no tingling - Integumentary Integumentary IM: no rash, no unusual bruising - Neurological Neurological ROS: no confusion, no convulsions, no focal weakness, no numbness, no tingling, no tremor(s) - Hematologic/Lymphatic Hematologic/Lymphatic: no easy bruising - Constitutional Vitals: Temp Pulse Resp BP Pulse Ox 97.8 F 76 16 145/85 98 11/14/16 10:53 11/14/16 10:53 11/14/16 10:53 11/14/16 10:53 11/14/16 10:53 General appearance: Present: A&O X 3 - Head Head exam: Present: atraumatic, normocephalic - Eye Eye exam: Present: PERRL, conjuntiva pink, sclera anicteric Pupils: Present: PERRL - Neck Neck exam general surgery: Present: supple, trachea midline. Absent: lymphadenopathy - Respiratory Respiratory exam: Present: rales, wheezes. Absent: accessory muscle use, rhonchi - Cardiovascular Cardiovascular exam: Present: +S1, +S2, tachycardia. Absent: diastolic murmur, gallop, rubs, systolic murmur Additional comments: Telemetry A. fib - GI/Abdominal GI/Abdominal exam: Present: normal bowel sounds, soft, no peritoneal signs. Absent: distended, tenderness - Extremities Exam Extremities exam: Present: pedal edema, warm, radial pulses palpable and symetrical. Absent: calf tenderness, cyanotic - Neurological Exam Neurological exam: Present: CN II-XII intact, oriented X3, no focal deficits. Absent: pronater drift, facial droop, speech deficit - Skin Skin exam: Present: dry, intact Internal Med - H&P Results - Labs CBC & Chem 7: 11/14/16 11:24 - EKG Data -: EKG Interpreted by Myself - EKG Data When compared to previous EKG: there are significant changes EKG comments: 11/14/16 11:17 Outside hospital EKG personally reviewed, shows A. fib with RVR heart rates in the 130s <Jacky Becerra - Last Filed: 11/14/16 12:32> Date of Encounter: 11/14/16 Internal Medicine - H&P: HPI History of present illness: Ms. Rodarte is a 71 year old female All Systems PM: A 10-system review of systems was performed and is negative for pertinent findings except as documented above in the HPI. - Constitutional Vitals: Temp Pulse Resp BP Pulse Ox 97.5 F L 88 16 159/87 95 11/14/16 11:53 11/14/16 11:53 11/14/16 11:53 11/14/16 11:53 11/14/16 11:53 Internal Med - H&P Results - Labs CBC & Chem 7: 11/14/16 11:24 Labs: BMP 11/14/16 11:24 Sodium 144 Potassium 4.1 Chloride 104 Carbon Dioxide 33 H BUN 25 H Creatinine 0.93 Glucose 136 H Calcium 9.2 Cardiac Enzymes 11/14/16 Range/Units 11:24 Troponin I 0.36 H* (0-0.03) ng/mL Liver Function 11/14/16 Range/Units 11:24 Total Bilirubin 0.3 (0.2-1.2) mg/dL AST 17 (5-34) Units/L ALT 30 (0-55) Units/L Alkaline Phosphatase 46 (38-126) Units/L Albumin 3.2 L (3.5-5.0) g/dL - Attending Attestation I have seen and examined the patient at around 10:30 AM. I have discussed with Terra Pearce nurse practitioner. I have reviewed the orders and the note. Patient is a 71-year-old female with past history of atrial fibrillation, CHF, COPD, coronary artery disease, hypertension and GERD and depression. She is undergone CABG and stent placement and also has a pacemaker. Patient presents as a direct admit from [facility]. Transfer to [place] for A. fib with RVR. On examination patient is awake and alert not in any distress. Daughter is at bedside and they both provide history. Patient was yesterday after being treated for CHF exacerbation and COPD exacerbation. Daughter states patient was doing well after discharge with woke up this morning was extremely short of breath and heart rate was found to be in the 130s to 160s. Initial home oxygen saturation was 92% while on CPAP. Shortness of breath was worsened exertion, and no alleviating factors. Daughter is concerned about patient's metoprolol and Lasix decreased. Patient was initially found to have A. fib with RVR at an outside hospital. Was given IV bolus of Cardizem, and this controlled her heart rate. At present heart rate is 88. She is hemodynamically stable. We will continue her home medications including Eliquis. Patient is being treated for CHF exacerbation, COPD exacerbation and A. fib with RVR. We will also consult cardiology. We will continue IV Lasix and breathing treatments. Patient and her daughter and explained about her condition and plan of care. They understood and agreed. No unanswered questions. CODE STATUS full code. Heart rate 88, blood pressure 159/87, O2 sat 95% on 2 L nasal cannula, heart S1- S2 positive systolic murmur present, lungs bilateral good entry with mild wheezing and rales bilaterally, abdomen soft nontender no masses or guarding.
[2016-11-14] MEDS ORDERED: Furosemide 20 MG/2 ML VIAL IVP ONE (11:25)
[2016-11-14 11:45] LABS: Alanine Aminotransferase 30 Units/L (0-55); Albumin 3.2 g/dL (3.5-5.0); Albumin/Globulin Ratio 1.2 (1.1-2.2); Alkaline Phosphatase 46 Units/L (38-126); Aspartate Amino Transferase 17 Units/L (5-34); BUN/Creatinine Ratio 27 (6-26); Bilirubin,Total 0.3 mg/dL (0.2-1.2); Blood Urea Nitrogen 25 mg/dL (7-20); Calcium 9.2 mg/dL (8.6-10.8); Carbon Dioxide 33 mEq/L (19-29); Chloride 104 mEq/L (98-109); Globulin 2.7 g/dL (2.4-3.5); Glucose 136 mg/dL (70-99); Osmolality,Calculated 304 (280-300); Potassium 4.1 mEq/L (3.5-4.5); Sodium 144 mEq/L (136-145); Total Protein 5.9 g/dL (6.0-8.3); eGFR For African Americans > 60 (> 60); eGFR For Non-African Americans 59 (> 60)
[2016-11-14] MEDS ORDERED: APIXABAN 5 MG TABLET PO ONE (18:04)
--- NOTE | 2016-11-14 18:07 | Event Note ---
Date of Encounter: 11/14/16 Time of Encounter: 18:06 Troponin trending up, most recent troponin 0.4. Remains asymptomatic repeat EKG with atrial fib. Heart rate in the 90s. Discussed with Dr. Rodriguez and will continue with gabriella bullock give one-time dose ASA. Continue to trend troponin and cardiology will see in the morning.
[2016-11-14] MEDS: Aspirin 81 MG TAB.CHEW PO SCH (18:18)
[2016-11-14] MEDS: MethylPREDNISolone 40 MG/ML VIAL IVP SCH (18:18)
[2016-11-14] MEDS: APIXABAN 5 MG TABLET PO SCH (19:17)
[2016-11-14] MEDS: traZODone 50 MG TABLET PO SCH (21:04)
[2016-11-14] MEDS: Budesonide/Formoterol 160/4.5 MDI IH SCH (21:45)
[2016-11-15] MEDS: APIXABAN 5 MG TABLET PO SCH ×3 (04:01→20:52)
[2016-11-15 05:05] LABS: Basophils % 0.1 %; Hematocrit 35.9 % (35.3-44.9); Immature Granulocytes % 0.6 % (0-4); Lymphocytes # 0.7 K/mcL (0.6-4.6); Lymphocytes % 6.3 %; Mean Corpuscular HGB Conc 30.6 g/dL (31.6-35.5); Mean Corpuscular Hemoglobin 29.4 pg (28.0-33.3); Mean Platelet Volume 11.1 fL (9.4-12.4); Monocytes # 0.3 K/mcL (0.0-1.3); Monocytes % 2.7 %; Neutrophils # 9.8 K/mcL (1.6-8.9); Platelet Count 174 K/mcL (140-400); Red Blood Count 3.74 M/mcL (3.82-4.97); Red Cell Distribution Width 14.5 % (11.5-14.5); Segmented Neutrophils % 90.3 %
[2016-11-15 05:13] LABS: Alanine Aminotransferase 28 Units/L (0-55); Albumin/Globulin Ratio 1.2 (1.1-2.2); Alkaline Phosphatase 43 Units/L (38-126); Aspartate Amino Transferase 16 Units/L (5-34); BUN/Creatinine Ratio 35 (6-26); Bilirubin,Total 0.3 mg/dL (0.2-1.2); Blood Urea Nitrogen 28 mg/dL (7-20); Calcium 9.1 mg/dL (8.6-10.8); Carbon Dioxide 32 mEq/L (19-29); Chloride 105 mEq/L (98-109); Globulin 2.6 g/dL (2.4-3.5); Glucose 192 mg/dL (70-99); Osmolality,Calculated 305 (280-300); Sodium 142 mEq/L (136-145); Total Protein 5.6 g/dL (6.0-8.3); eGFR For African Americans > 60 (> 60); eGFR For Non-African Americans > 60 (> 60)
[2016-11-15 05:17] LABS: Potassium 4.8 mEq/L (3.5-4.5)
[2016-11-15] MEDS: MethylPREDNISolone 40 MG/ML VIAL IVP SCH (06:15)
[2016-11-15] MEDS ORDERED: Furosemide 20 MG/2 ML VIAL IVP SCH (08:00)
[2016-11-15] MEDS: Budesonide/Formoterol 160/4.5 MDI IH SCH ×2 (08:04→23:13)
[2016-11-15] MEDS: Aspirin 81 MG TAB.CHEW PO SCH (09:42)
--- NOTE | 2016-11-15 11:23 | Cardiology Consult Note ---
<Elfego Lopez - Last Filed: 11/15/16 11:28> Date of Encounter: 11/15/16 Time of Encounter: 11:17 Assessment and Plan (1) Atrial fibrillation with RVR Current Visit: Yes Status: Acute Known hx of A-Fib, anticoagulated on Eliquis. Presented to [facility] in A- Fib RVR rate 130s. BB was decreased during recent stay due to hypotension--was previously on 50mg TID of Lopressor. Current order is 25mg BID Lopressor. BP 120s-130s systolic, increase BB to 50mg BID. HR 80s-low 100s at bedside. Continue Eliquis for anticoagulation. Continue to monitor, adjust BB as necessary for HR control. If BP will not tolerate, can consider Digoxin, but BP tolerating currently. (2) Combined systolic and diastolic heart failure Current Visit: No Status: Acute Known EF 40-45% on echo 07/2016, stable EF since 2012. BNP worsened--was 623 on 11/10, currently 942 with symptoms of worsening dyspnea , lower extremity edema. Increase IV Lasix to 40mg BID. Renal function currently normal. Recommend strict I/Os, daily weights, Na and fluid restriction. Qualifiers: Heart failure chronicity: acute on chronic Qualified Code(s): I50.43 - Acute on chronic combined systolic (congestive) and diastolic (congestive) heart failure (3) JORGE (obstructive sleep apnea) Current Visit: Yes Status: Acute Reports CPAP malfunctioning, which could be contributing to symptoms and uncontrolled A-Fib. Pt reports daughter is obtaining a new CPAP. (4) Ischemic cardiomyopathy Current Visit: No Status: Acute EF 40-45%. ICD in place. Continue BB. Attempt to add JAKE-I prior to d/c if BP and renal function will tolerate after pt is rate controlled and diuresed. (5) CAD (coronary artery disease) Current Visit: No Status: Chronic Hx of CABG and PCI. Most recent [facility] 12/2015 RONEL to mid PDA. Plavix, Statin, BB. ASA recently stopped due to being on triple therapy. Qualifiers: Coronary Disease-Associated Artery/Lesion type: bypass graft [place] vs. transplanted heart: [place] heart Associated angina: without angina Qualified Code(s): I25.810 - Atherosclerosis of coronary artery bypass graft(s) without angina pectoris Discussion w patient/family: The assessment and plan as outlined above was discussed with the patient and/or family members who expressed understanding and agreement. All questions were answered. Thank you for involving us in the care of your patient. Please call with any questions. I will discuss all the above with Dr. Sun and make changes as necessary. History of Present Illness Consult date: 11/15/16 Requesting physician: Jody Pearce Consult reason: A-Fib, RVR, CHF Chief complaint: dyspnea History of present illness: Ms. Rodarte is a 71 year old female with PMH of COPD, systolic CHF, A-Fib on Eliquis, CAD with hx CABG and PCI, HLD, Pacemaker AICD, and JORGE who presented to outside hospital on 11/14/2016 with complaints of worsening shortness of breath. She was found to be in A. fib with RVR HR 130s and was transferred to [facility] for further workup and treatment. Patient was just discharged on 11/13/2016 after being treated for CHF, COPD exacerbation. Per hospitalist H&P, patient's daughter reports she was doing well when she was discharged, went out to dinner with the family and had no complaints. Daughter reports patient woke up yesterday morning and was extremely short of breath, states she could not catch her breath and heart rate was in the 130s to 160s per home pulse ox machine. Daughter called EMS and she was taken to [facility]. BNP increased to 947 from 623 on 11/10. HR currently 80s-90s A-Fib. Pt denies chest pain. Recent CV testing: Echo 08/06/16 EF 40-45% with regional wall motion abnormalities. Mild RV hypokinesis, severely dilated left atrium, mild MR. [facility] 12/25/2015 Impressions: Left main coronary artery: severe ostial stenosis of 70-75% Left anterior descending coronary artery: Severe proximal stenosis of 95%. Left circumflex coronary artery: chronically occluded proximally SVG to LAD: occluded proximally SVG to RCA: Patent with no significant disease. The jump graft to PDA was occluded. The PDA has 75% stenosis. PCI/RONEL to mid PDA. Past Med Surg Social Fam HX - Past Medical History Medical history: atrial fibrillation, cardiomyopathy, CHF, COPD, coronary artery disease, GERD, hypertension, myocardial infarction Psychiatric history: anxiety, depression - Past Surgical History Surgical History: angioplasty/stent, coronary bypass (CABG), hysterectomy, pacemaker/AICD - Social History Smoking Status: Current every day smoker Smokeless Tobacco Status: No Alcohol use: none Drug use: none - Family History Father Adopted: No Family Member Ethnicity: Non- Living Status: Hx Family Cardiac Disorders: Yes Hx Family Respiratory Disorders: No Hx Family Cancer: No Hx Family GI Disorders: No Hx Family Endocrine Disorder: No Hx Family Neuromuscular Disorders: No Hx Family Neurologic Disorders: No Hx Family HEENT Disorders: No Hx Family Autoimmune Disorders: No Mother Living Status: Hx Family Endocrine Disorder: Yes (DM) Medications and Allergies Apixaban [Eliquis] 5 mg PO BID 08/04/16 [History] Clopidogrel [Plavix] 75 mg PO DAILY 08/04/16 [History] Ferrous Sulfate 325 mg PO DAILY 08/04/16 [History] Fluticasone/Salmeterol [Advair 500-50 Diskus] 1 each IH BID 08/04/16 [History] Pantoprazole Sodium [Protonix] 40 mg PO DAILY 08/04/16 [History] Potassium Chloride [K-Tab ER] 20 meq PO DAILY 08/04/16 [History] Pravastatin Sodium [Pravachol] 80 mg PO HS 08/04/16 [History] Sennosides/Docusate Sodium [Senna-S Tablet] 1 each PO DAILY PRN 08/04/16 [ History] Trazodone HCl 100 mg PO HS 11/10/16 [History] Furosemide [Lasix] 20 mg PO BIDDIURETIC #30 tablet 11/13/16 [Rx] Ipratropium/Albuterol Neb [Duoneb] 3 ml IH Q6HR PRN #30 11/13/16 [Rx] Metoprolol [Lopressor] 25 mg PO BID #30 tablet 11/13/16 [Rx] predniSONE [PredniSONE] 40 mg PO DAILY #14 tablet 11/13/16 [Rx] Allergies Iodinated Contrast- Oral and IV Dye [Iodinated Contrast Media - Oral and] Adverse Reaction (Verified 11/10/16 15:03) See Comments patient unsure of what happens with this??? Sulfa (Sulfonamide Antibiotics) Adverse Reaction (Verified 10/06/16 20:40) Hives tape Adverse Reaction (Uncoded 08/04/16 12:35) Hives All Systems Review: A 10-system review of systems was performed and is negative for pertinent findings except as documented above in the HPI. - Cardiovascular Cardiovascular: as per HPI, dyspnea at rest, dyspnea on exertion, leg edema - Respiratory Respiratory: dyspnea Physical Examination Vital Signs, Last 4 Hours Resp Pulse Ox 11/15/16 08:06 16 91 Vital Signs Temp Pulse Resp BP Pulse Ox 11/15/16 08:06 16 91 11/15/16 07:01 97.7 F 99 15 133/86 98 11/15/16 04:27 98.0 F 70 16 122/72 97 11/15/16 00:18 97.2 F L 112 15 112/76 96 11/14/16 23:22 18 95 11/14/16 22:00 98 11/14/16 21:45 22 98 11/14/16 20:00 98.2 F 120 28 122/80 100 11/14/16 15:33 98.2 F 92 16 143/88 98 11/14/16 11:53 97.5 F L 88 16 159/87 95 Intake and Output 11/14/16 11/15/16 11/15/16 23:59 07:59 15:59 Intake Total 240 / 240 480 / 480 Output Total 100 / 100 300 / 300 600 / 600 Balance 140 / 140 -300 / -300 -120 / -120 Intake: Oral 240 / 240 480 / 480 Output: Urine 100 / 100 300 / 300 600 / 600 Other: Meal Dinner Breakfast Percent of Meal Consumed 100% 95% # Voids 400 Weight 72.8 kg Patient Weight 11/15/16 23:59 Weight 72.8 kg General: Conversant, No Apparent Distress HEENT: Atraumatic, Normocephaly, Mucus Membranes Moist Neck: Normal carotid pulses Cardiac: Other (irregularly irregular) Lungs: Other (mild wheezes noted one exam) Neuro: Alert and responsive, No focal deficits noted Abdomen: Soft, Non-Tender Skin: No rashes noted on visualized skin Musculoskeletal: No Chest Wall Tenderness Extremities: Other (mild BLE edema) Results 11/15/16 04:49 11/15/16 04:49 Lab Results 11/14/16 11/14/16 11/14/16 11:24 11:24 11:24 WBC Hgb Hct Plt Count Sodium 144 Potassium 4.1 Chloride 104 Carbon Dioxide 33 H BUN 25 H Creatinine 0.93 Glucose 136 H Calcium 9.2 Total Bilirubin 0.3 AST 17 ALT 30 Alkaline Phosphatase 46 Troponin I 0.36 H* B-Natriuretic Peptide 942 H 11/14/16 11/14/16 11/15/16 17:10 22:43 04:49 WBC 10.9 Hgb 11.0 L D Hct 35.9 Plt Count 174 Sodium Potassium Chloride Carbon Dioxide BUN Creatinine Glucose Calcium Total Bilirubin AST ALT Alkaline Phosphatase Troponin I 0.49 H* 0.31 H* B-Natriuretic Peptide 11/15/16 04:49 WBC Hgb Hct Plt Count Sodium 142 Potassium 4.8 H Chloride 105 Carbon Dioxide 32 H BUN 28 H Creatinine 0.81 Glucose 192 H Calcium 9.1 Total Bilirubin 0.3 AST 16 ALT 28 Alkaline Phosphatase 43 Troponin I B-Natriuretic Peptide Short CBC 11/15/16 Range/Units 04:49 WBC 10.9 (4.3-11.1) K/mcL Hgb 11.0 L D (11.5-15.4) g/dL Hct 35.9 (35.3-44.9) % Plt Count 174 (140-400) K/mcL Neutrophils # 9.8 H (1.6-8.9) K/mcL BMP 11/15/16 11/14/16 Range/Units 04:49 11:24 Sodium 142 144 (136-145) mEq/L Potassium 4.8 H 4.1 (3.5-4.5) mEq/L Chloride 105 104 (98-109) mEq/L Carbon Dioxide 32 H 33 H (19-29) mEq/L BUN 28 H 25 H (7-20) mg/dL Creatinine 0.81 0.93 (0.57-1.11) mg/dL Glucose 192 H 136 H (70-99) mg/dL Calcium 9.1 9.2 (8.6-10.8) mg/dL Cardiac Enzymes 11/14/16 11/14/16 11/14/16 Range/Units 22:43 17:10 11:24 Troponin I 0.31 H* 0.49 H* 0.36 H* (0-0.03) ng/mL Liver Function 11/15/16 11/14/16 Range/Units 04:49 11:24 Total Bilirubin 0.3 0.3 (0.2-1.2) mg/dL AST 16 17 (5-34) Units/L ALT 28 30 (0-55) Units/L Alkaline Phosphatase 43 46 (38-126) Units/L Albumin 3.0 L 3.2 L (3.5-5.0) g/dL Impressions Chest X-Ray 11/14/16 11:25 IMPRESSION: Stable portable study. D/ / Nuria Gutiérrez Cha, MD / Nuria Gutiérrez Cha, MD Interpreting Provider: Nuria Gutiérrez Cha, MD Active Medications Acetaminophen (Tylenol) 650 mg PO Q6HR PRN PRN Reason: Mild Pain (1-3) Stop: 05/16/17 10:51 Albuterol/Ipratropium (Duoneb) 3 ml IH Q6HR PRN; Protocol PRN Reason: Shortness Of Breath/Wheezing Stop: 05/16/17 10:54 Apixaban (Eliquis) 5 mg PO BID [facility] Stop: 05/17/17 09:01 Last Admin: 11/15/16 09:42 Dose: 5 mg Aspirin (Aspirin) 81 mg PO DAILY [facility] Stop: 05/16/17 18:05 Last Admin: 11/15/16 09:42 Dose: 81 mg Budesonide/Formoterol Fumarate (Symbicort) 2 puff IH BIDR [facility] Stop: 05/16/17 22:01 Last Admin: 11/15/16 08:04 Dose: 2 puff Clopidogrel Bisulfate (Plavix) 75 mg PO DAILY [facility] Stop: 05/17/17 09:01 Last Admin: 11/15/16 09:41 Dose: 75 mg Ferrous Sulfate (Ferrous Sulfate) 325 mg PO DAILY [facility] Stop: 05/17/17 09:01 Last Admin: 11/15/16 09:41 Dose: 325 mg Furosemide (Lasix) 20 mg IVP BIDDIURETIC [facility] Stop: 05/17/17 08:01 Last Admin: 11/15/16 09:42 Dose: 20 mg Lansoprazole (Prevacid) 30 mg PO QAM [facility] PRN Reason: Protocol Stop: 05/17/17 09:16 Last Admin: 11/15/16 10:22 Dose: 30 mg Metoprolol Tartrate (Lopressor) 50 mg PO BID [facility] Stop: 05/17/17 21:01 Naloxone HCl (Narcan) 0.4 mg IVP Q2MIN PRN PRN Reason: Opioid Reversal Stop: 05/16/17 10:44 Prednisone (Prednisone) 40 mg PO DAILY [facility] Stop: 05/17/17 18:01 Simvastatin (Zocor) 40 mg PO HS [facility] Stop: 05/16/17 21:01 Last Admin: 11/14/16 21:04 Dose: 40 mg Trazodone HCl (Trazodone) 100 mg PO HS [facility] Stop: 05/16/17 21:01 Last Admin: 11/14/16 21:04 Dose: 100 mg - Imaging and Cardiology Chest Xray: report reviewed Echo: report reviewed Cardiac cath: report reviewed - EKG Interpretation EKG results cardiology: personally reviewed (A-Fib RVR HR 130s), other (12 hr tele AVG HR 97, A-Fib) Consult Discharge Plan - Plan Referrals: Hal Monroy MD [Primary Care Provider] - <Marguerite Sun - Last Filed: 11/15/16 12:33> Date of Encounter: 11/15/16 Assessment and Plan Discussion w patient/family: The assessment and plan as outlined above was discussed with the patient and/or family members who expressed understanding and agreement. All questions were answered. Thank you for involving us in the care of your patient. Please call with any questions. History of Present Illness History of present illness: Ms. Rodarte is a 71 year old female All Systems Review: A 10-system review of systems was performed and is negative for pertinent findings except as documented above in the HPI. Physical Examination Vital Signs, Last 4 Hours Temp Pulse Resp BP Pulse Ox 11/15/16 12:03 97.6 F 88 16 137/78 97 Results 11/15/16 04:49 11/15/16 04:49 Lab Results 11/14/16 11/14/16 11/15/16 17:10 22:43 04:49 WBC 10.9 Hgb 11.0 L D Hct 35.9 Plt Count 174 Sodium Potassium Chloride Carbon Dioxide BUN Creatinine Glucose Calcium Total Bilirubin AST ALT Alkaline Phosphatase Troponin I 0.49 H* 0.31 H* 11/15/16 04:49 WBC Hgb Hct Plt Count Sodium 142 Potassium 4.8 H Chloride 105 Carbon Dioxide 32 H BUN 28 H Creatinine 0.81 Glucose 192 H Calcium 9.1 Total Bilirubin 0.3 AST 16 ALT 28 Alkaline Phosphatase 43 Troponin I - Attending Attestation I examined this patient and my medical decision-making was reviewed with the MAMMAL KEEPER/PA/Advanced Practice Nurse/Resident Physician. I agree with the documented findings, disposition and treatment plan. Ms. Rodarte presented to [facility] with AF RVR. Agree with increase in BB to 50mg BID. Was previously on TID and BB was decreased due to bradycardia at recent hospital stay. Also agree with IV diuresis given probably a combination of mild acute decompensated systolic and diastolic heart failure.
[2016-11-15] MEDS ORDERED: Furosemide 20 MG/2 ML VIAL IVP ONE (11:38)
--- NOTE | 2016-11-15 14:34 | Internal Med Progress Note ---
<Escobar Jo - Last Filed: 11/15/16 14:28> Date of Encounter: 11/15/16 Time of Encounter: 09:40 - Assessment and plan (1) Atrial fibrillation with RVR Current Visit: Yes Status: Acute Assessment and plan: Vision has known A. fib. Resume home beta patti. (2) JORGE (obstructive sleep apnea) Current Visit: Yes Status: Acute (3) COPD exacerbation Current Visit: No Status: Acute Assessment and plan: Patient's shortness of breath has resolved. Continue to monitor. (4) DVT prophylaxis Current Visit: No Status: Acute Assessment and plan: Continue Eliquis. - Subjective Interval history: Patient was seen and examined at bedside this morning. She is a 71-year-old female who presented to the ED feeling extremely short of breath. She was using her CPAP machine at home, when she began to feel short of breath. At this time her heart rate was 130 to 160, and she experienced difficulty breathing that was worse with exertion. Her symptoms improved upon admission to the hospital. She states that she currently has no shortness of breath or any difficulty breathing. She states that she feels much better since her admission. She admits that this has happened several times before, but this was the worse particular instance. She denies chest pain, palpitations, nausea , vomiting, fever, cough, or sputum production. She denies having any pain. She has no complaints at this time. - Constitutional Vitals: Temp Pulse Resp BP Pulse Ox 97.6 F 88 16 137/78 97 11/15/16 12:03 11/15/16 12:03 11/15/16 12:03 11/15/16 12:03 11/15/16 12:03 General appearance: Present: cooperative, A&O X 3, pleasant, no acute distress, answers questions appropriately - Respiratory Respiratory exam: Present: CTAB. Absent: accessory muscle use, rales, rhonchi, wheezes - Cardiovascular Cardiovascular exam: Present: RRR, +S1, +S2. Absent: diastolic murmur, gallop, rubs, systolic murmur Internal Medicine: Result - Labs CBC & Chem 7: 11/15/16 04:49 11/15/16 04:49 Labs: Short CBC 11/15/16 Range/Units 04:49 WBC 10.9 (4.3-11.1) K/mcL Hgb 11.0 L D (11.5-15.4) g/dL Hct 35.9 (35.3-44.9) % Plt Count 174 (140-400) K/mcL Neutrophils # 9.8 H (1.6-8.9) K/mcL BMP 11/15/16 04:49 Sodium 142 Potassium 4.8 H Chloride 105 Carbon Dioxide 32 H BUN 28 H Creatinine 0.81 Glucose 192 H Calcium 9.1 Cardiac Enzymes 11/14/16 11/14/16 Range/Units 17:10 22:43 Troponin I 0.49 H* 0.31 H* (0-0.03) ng/mL Liver Function 11/15/16 Range/Units 04:49 Total Bilirubin 0.3 (0.2-1.2) mg/dL AST 16 (5-34) Units/L ALT 28 (0-55) Units/L Alkaline Phosphatase 43 (38-126) Units/L Albumin 3.0 L (3.5-5.0) g/dL - Impressions Impressions Chest X-Ray 11/14/16 11:25 IMPRESSION: Stable portable study. D/ / Nuria Gutiérrez Cha, MD / Nuria Gutiérrez Cha, MD Interpreting Provider: Nuria Gutiérrez Cha, MD Consult Discharge Plan - Plan Referrals: Hal Monroy MD [Primary Care Provider] - <aJrrett Navarro A - Last Filed: 11/15/16 18:32> Date of Encounter: 11/15/16 - Assessment and plan (1) Atrial fibrillation Current Visit: Yes Status: Chronic Qualifiers: Atrial fibrillation type: chronic Qualified Code(s): I48.2 - Chronic atrial fibrillation (2) JORGE (obstructive sleep apnea) Current Visit: Yes Status: Acute (3) CAD (coronary artery disease) Current Visit: No Status: Chronic Qualifiers: Coronary Disease-Associated Artery/Lesion type: bypass graft [place] vs. transplanted heart: [place] heart Associated angina: without angina Qualified Code(s): I25.810 - Atherosclerosis of coronary artery bypass graft(s) without angina pectoris (4) Nicotine dependence Current Visit: No Status: Chronic Qualifiers: Nicotine product type: cigarettes Substance use status: other nicotine- induced disorder Qualified Code(s): F17.218 - Nicotine dependence, cigarettes , with other nicotine-induced disorders (5) COPD exacerbation Current Visit: No Status: Acute (6) Hypertension Current Visit: No Status: Chronic Qualifiers: Hypertension type: essential hypertension Qualified Code(s): I10 - Essential (primary) hypertension - Constitutional Vitals: Temp Pulse Resp BP Pulse Ox 97.5 F L 93 18 111/62 98 11/15/16 15:08 11/15/16 15:08 11/15/16 15:08 11/15/16 15:08 11/15/16 15:08 Internal Medicine: Result - Labs CBC & Chem 7: 11/15/16 04:49 11/15/16 04:49 Labs: Short CBC 11/15/16 Range/Units 04:49 WBC 10.9 (4.3-11.1) K/mcL Hgb 11.0 L D (11.5-15.4) g/dL Hct 35.9 (35.3-44.9) % Plt Count 174 (140-400) K/mcL Neutrophils # 9.8 H (1.6-8.9) K/mcL BMP 11/15/16 04:49 Sodium 142 Potassium 4.8 H Chloride 105 Carbon Dioxide 32 H BUN 28 H Creatinine 0.81 Glucose 192 H Calcium 9.1 Cardiac Enzymes 11/14/16 Range/Units 22:43 Troponin I 0.31 H* (0-0.03) ng/mL Liver Function 11/15/16 Range/Units 04:49 Total Bilirubin 0.3 (0.2-1.2) mg/dL AST 16 (5-34) Units/L ALT 28 (0-55) Units/L Alkaline Phosphatase 43 (38-126) Units/L Albumin 3.0 L (3.5-5.0) g/dL - Attending Attestation I examined this patient and my medical decision-making was reviewed with the Resident Physician on 11/15/16. I agree with the documented findings, disposition and treatment plan as described except to the extent set forth below. Ms. Rodarte is currently admitted for acute rapid a fib. She is moderate to high risk due to potential cardiac issues. Ms. Rodarte has no complaints. She feels much better at this time. Her daughter is at bedside and has a lot of issues. She is wanting her mom reevaluated by PT /OT, troponin rechecked, echo results, iron studies done, code status changed. Exam Alert. Comfortable Heart irrg not tachy Lungs clear at this time I/P 1. A fib with RVR 2. COPD Further diagnoses and plan as above. Daughter's questions answered.
--- NOTE | 2016-11-15 15:04 | Electrocardiograph Report ---
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
[2016-11-15] MEDS: Ipratropium/Albuterol Neb 3 ML IH SCH ×2 (16:22→23:13)
[2016-11-15] MEDS: predniSONE 20 MG TABLET PO SCH (17:01)
[2016-11-15] MEDS: Furosemide 40 MG/4 ML VIAL IVP SCH (17:02)
[2016-11-15] MEDS: traZODone 50 MG TABLET PO SCH (20:52)
[2016-11-16] MEDS: Ipratropium/Albuterol Neb 3 ML IH SCH ×4 (03:53→22:53)
[2016-11-16] MEDS: predniSONE 20 MG TABLET PO SCH (07:25)
[2016-11-16] MEDS: Furosemide 40 MG/4 ML VIAL IVP SCH ×2 (07:25→17:22)
[2016-11-16] MEDS: APIXABAN 5 MG TABLET PO SCH ×2 (07:25→20:04)
--- NOTE | 2016-11-16 08:41 | Cardiology Progress Note ---
Date of Encounter: 11/16/16 Time of Encounter: 08:00 Assessment and Plan (1) Atrial fibrillation with RVR Current Visit: Yes Status: Acute Known hx of A-Fib, anticoagulated on Eliquis. Presented to [facility] in A- Fib RVR rate 130s. BB was decreased during recent stay due to hypotension--was previously on 50mg TID of Lopressor. Continue Lopressor 50 mg BID; HR 70-80's at bedside. Continue Eliquis for anticoagulation. Blood pressure stable and tolerating betablocker. May increase BB if needed to improve HR control. No further inpatient Cardiology recommendations, will sign-off. Will coordinate outpatient f/u appt. (2) JORGE (obstructive sleep apnea) Current Visit: Yes Status: Acute Reports CPAP malfunctioning, which could be contributing to symptoms and uncontrolled A-Fib. Pt reports daughter is obtaining a new CPAP. (3) Combined systolic and diastolic heart failure Current Visit: Yes Status: Acute Known EF 40-45% on echo 07/2016, stable EF since 2012. BNP worsened this admission--was 623 on 11/10, currently 942 with symptoms of worsening dyspnea, lower extremity edema. Patient states dyspnea/LE edema improved; edema not yet at baseline. Cumulative I&O: -570 mL. Recommend increase oral maintenance dose upon discharge. Recommend strict I/Os, daily weights, Na and fluid restriction. Qualifiers: Heart failure chronicity: acute on chronic Qualified Code(s): I50.43 - Acute on chronic combined systolic (congestive) and diastolic (congestive) heart failure (4) Ischemic cardiomyopathy Current Visit: Yes Status: Acute EF 40-45%. ICD in place. Continue BB. Attempt to add JAKE-I prior to d/c if BP and renal function will tolerate after pt is rate controlled and diuresed. (5) CAD (coronary artery disease) Current Visit: Yes Status: Chronic Hx of CABG and PCI. Most recent [facility] 12/2015 RONEL to mid PDA. Plavix, Statin, BB. ASA recently stopped due to being on triple therapy. Qualifiers: Coronary Disease-Associated Artery/Lesion type: bypass graft [place] vs. transplanted heart: [place] heart Associated angina: without angina Qualified Code(s): I25.810 - Atherosclerosis of coronary artery bypass graft(s) without angina pectoris Discussion w patient/family: The assessment and plan as outlined above was discussed with the patient and/or family members who expressed understanding and agreement. All questions were answered. Thank you for involving us in the care of your patient. Please call with any questions. The patient was discussed and reviewed with Dr. Sun; Cardiology will sign- off. Subjective Principal diagnosis: Afib with RVR; volume overload Interval history: Seen and examined. Utilized BiPap overnight--states feels much better this morning. Denies palpitations, dyspnea, chest pain/discomfort, or worsening edema. States LE edema improved, not yet at baseline. Objective Vital Signs, Last 4 Hours Temp Pulse Resp BP Pulse Ox 11/16/16 07:13 97.8 F 70 18 119/75 97 11/16/16 05:51 98.7 F 74 18 122/82 93 General: Conversant HEENT: Atraumatic, Normocephaly Cardiac: Other (irregularly irregular) Lungs: Other (Diminished/rales bibasilar) Neuro: Alert and responsive Abdomen: Soft Skin: No rashes noted on visualized skin Musculoskeletal: No Chest Wall Tenderness Extremities: Normal Pulses, Other (pre-tibial LE edema, R>L) Results 11/15/16 04:49 11/15/16 04:49 Active Medications Acetaminophen (Tylenol) 650 mg PO Q6HR PRN PRN Reason: Mild Pain (1-3) Stop: 05/16/17 10:51 Albuterol/Ipratropium (Duoneb) 3 ml IH [id number] CARLOS PRN Reason: Protocol Stop: 05/17/17 16:16 Last Admin: 11/16/16 03:53 Dose: 3 ml Apixaban (Eliquis) 5 mg PO BID CARLOS Stop: 05/17/17 09:01 Last Admin: 11/16/16 07:25 Dose: 5 mg Budesonide/Formoterol Fumarate (Symbicort) 2 puff IH BIDR [facility] Stop: 05/16/17 22:01 Last Admin: 11/15/16 23:13 Dose: 2 puff Clopidogrel Bisulfate (Plavix) 75 mg PO DAILY CARLOS Stop: 05/17/17 09:01 Last Admin: 11/16/16 07:25 Dose: 75 mg Ferrous Sulfate (Ferrous Sulfate) 325 mg PO DAILY [facility] Stop: 05/17/17 09:01 Last Admin: 11/16/16 07:25 Dose: 325 mg Furosemide (Lasix) 40 mg IVP BIDDIURETIC CARLOS Stop: 05/17/17 17:01 Last Admin: 11/16/16 07:25 Dose: 40 mg Lansoprazole (Prevacid) 30 mg PO QAM CARLOS PRN Reason: Protocol Stop: 05/17/17 09:16 Last Admin: 11/16/16 07:25 Dose: 30 mg Metoprolol Tartrate (Lopressor) 50 mg PO BID CARLOS Stop: 05/17/17 21:01 Last Admin: 11/16/16 07:25 Dose: 50 mg Naloxone HCl (Narcan) 0.4 mg IVP Q2MIN PRN PRN Reason: Opioid Reversal Stop: 05/16/17 10:44 Prednisone (Prednisone) 40 mg PO DAILY CARLOS Stop: 05/17/17 18:01 Last Admin: 11/16/16 07:25 Dose: 40 mg Simvastatin (Zocor) 40 mg PO HS CARLOS Stop: 05/16/17 21:01 Last Admin: 11/15/16 20:52 Dose: 40 mg Trazodone HCl (Trazodone) 100 mg PO HS CARLOS Stop: 05/16/17 21:01 Last Admin: 11/15/16 20:52 Dose: 100 mg - Imaging and Cardiology Echo: report reviewed Other Results: 12 hour tele: avg HR=94 afib. No significant pause or event. - EKG Interpretation EKG results cardiology: personally reviewed Consult Discharge Plan - Plan Referrals: Hal Monroy MD [Primary Care Provider] -
[2016-11-16] MEDS: Budesonide/Formoterol 160/4.5 MDI IH SCH ×2 (11:00→22:51)
--- NOTE | 2016-11-16 11:00 | Internal Med Progress Note ---
<Escobar Jo - Last Filed: 11/16/16 10:58> Date of Encounter: 11/16/16 Time of Encounter: 09:45 - Assessment and plan (1) Atrial fibrillation with RVR Current Visit: Yes Status: Acute Assessment and plan: Patient has known A. fib. Was seen by cardiology. She is anticoagulated Eliquis. Continue to monitor blood pressure and heart rate. Continue Lopressor 50 mg twice a day. (2) JORGE (obstructive sleep apnea) Current Visit: Yes Status: Acute Assessment and plan: Patient states that CPAP in the hospital is superior to her CPAP at home. Patient reports that her daughter is attempting to obtain a new CPAP machine. (3) COPD exacerbation Current Visit: No Status: Acute Assessment and plan: Patient's shortness of breath has resolved. Continue to monitor oxygen levels. Continue to monitor vital signs. (4) DVT prophylaxis Current Visit: No Status: Acute Assessment and plan: Continue Eliquis. - Subjective Interval history: Patient was seen and examined at bedside this morning. She states that she feels much better than she did on admission. Her only complaint this morning is that she did not sleep well last night, but this is somewhat of a common occurrence. She currently denies having any shortness of breath, palpitations, chest pain, or productive cough. She has no complaints at this time. - Constitutional Vitals: Temp Pulse Resp BP Pulse Ox 97.8 F 70 18 119/75 97 11/16/16 07:13 11/16/16 07:13 11/16/16 07:13 11/16/16 07:13 11/16/16 07:13 General appearance: Present: cooperative, A&O X 3, pleasant, no acute distress, answers questions appropriately - Respiratory Respiratory exam: Present: CTAB. Absent: accessory muscle use, rales, rhonchi, wheezes - Cardiovascular Cardiovascular exam: Present: RRR, +S1, +S2. Absent: diastolic murmur, gallop, rubs, systolic murmur Internal Medicine: Result - Labs CBC & Chem 7: 11/15/16 04:49 11/15/16 04:49 Consult Discharge Plan - Plan Referrals: Hal Monroy MD [Primary Care Provider] - 11/21/16 9:30 am <Jarrett Navarro - Last Filed: 11/16/16 18:00> Date of Encounter: 11/16/16 - Assessment and plan (1) Atrial fibrillation Current Visit: Yes Status: Chronic Qualifiers: Atrial fibrillation type: chronic Qualified Code(s): I48.2 - Chronic atrial fibrillation (2) JORGE (obstructive sleep apnea) Current Visit: Yes Status: Acute (3) CAD (coronary artery disease) Current Visit: Yes Status: Chronic Qualifiers: Coronary Disease-Associated Artery/Lesion type: bypass graft [place] vs. transplanted heart: [place] heart Associated angina: without angina Qualified Code(s): I25.810 - Atherosclerosis of coronary artery bypass graft(s) without angina pectoris (4) Nicotine dependence Current Visit: No Status: Chronic Qualifiers: Nicotine product type: cigarettes Substance use status: other nicotine- induced disorder Qualified Code(s): F17.218 - Nicotine dependence, cigarettes , with other nicotine-induced disorders (5) COPD exacerbation Current Visit: No Status: Acute (6) Hypertension Current Visit: No Status: Chronic Qualifiers: Hypertension type: essential hypertension Qualified Code(s): I10 - Essential (primary) hypertension - Constitutional Vitals: Temp Pulse Resp BP Pulse Ox 97.9 F 110 18 113/65 96 11/16/16 15:59 11/16/16 15:59 11/16/16 15:59 11/16/16 15:59 11/16/16 15:59 Internal Medicine: Result - Labs CBC & Chem 7: 11/15/16 04:49 11/15/16 04:49 - Attending Attestation I examined this patient and my medical decision-making was reviewed with the Resident Physician on 11/16/16. I agree with the documented findings, disposition and treatment plan as described except to the extent set forth below. Ms. Rodarte is currently admitted with rapid a fib and dypnea - ? COPD. She is moderate to high risk due to potential for worsening cardiac status. Ms. Rodarte has no new issues currently. She denies pain. No fever or chills. Awaiting cardiology visit. Exam Alert. Comfortable Heart irreg Lungs clear I/P 1. A fib 2. JORGE 3. CHF Further diagnoses and plan as above. Daughter updated. She is waiting to talk to cardiology about test results. Questions answered regarding home/PT/etc
--- NOTE | 2016-11-16 11:45 | Electrocardiograph Report ---
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
[2016-11-16] MEDS: traZODone 50 MG TABLET PO SCH (20:05)
[2016-11-17] MEDS: Ipratropium/Albuterol Neb 3 ML IH SCH ×4 (03:42→22:24)
[2016-11-17] MEDS: predniSONE 20 MG TABLET PO SCH (09:27)
[2016-11-17] MEDS: APIXABAN 5 MG TABLET PO SCH ×2 (09:28→20:26)
[2016-11-17] MEDS: Furosemide 40 MG/4 ML VIAL IVP SCH (09:31)
[2016-11-17] MEDS: Budesonide/Formoterol 160/4.5 MDI IH SCH ×2 (09:57→22:24)
--- NOTE | 2016-11-17 10:26 | Internal Med Progress Note ---
<Escobar Jo - Last Filed: 11/17/16 10:25> Date of Encounter: 11/17/16 Time of Encounter: 09:20 - Assessment and plan (1) Atrial fibrillation with RVR Current Visit: Yes Status: Acute Assessment and plan: Patient has known A. fib. Was seen by cardiology. She is anticoagulated Eliquis. Continue to monitor blood pressure and heart rate. Continue Lopressor 50 mg twice a day. (2) JORGE (obstructive sleep apnea) Current Visit: Yes Status: Acute Assessment and plan: Patient states that CPAP in the hospital is superior to her CPAP at home. Patient reports that her daughter is attempting to obtain a new CPAP machine. (3) COPD exacerbation Current Visit: No Status: Acute Assessment and plan: Patient's shortness of breath has resolved. Continue to monitor oxygen levels. Continue to monitor vital signs. (4) DVT prophylaxis Current Visit: No Status: Acute Assessment and plan: Continue Eliquis. - Subjective Interval history: Patient was seen and examined at bedside this morning. She states that she feels very well this morning. She had no trouble sleeping last night. She currently denies having any shortness of breath, palpitations, chest pain, or productive cough. She has no complaints at this time. - Constitutional Vitals: Temp Pulse Resp BP Pulse Ox 98.1 F 108 20 145/85 99 11/17/16 08:00 11/17/16 08:00 11/17/16 09:57 11/17/16 08:00 11/17/16 09:57 General appearance: Present: cooperative, A&O X 3, pleasant, no acute distress, answers questions appropriately - Respiratory Respiratory exam: Present: CTAB. Absent: accessory muscle use, rales, rhonchi, wheezes - Cardiovascular Cardiovascular exam: Present: RRR, +S1, +S2. Absent: diastolic murmur, gallop, rubs, systolic murmur Internal Medicine: Result - Labs CBC & Chem 7: 11/15/16 04:49 11/15/16 04:49 Labs: Cardiac Enzymes 11/17/16 Range/Units 09:28 Troponin I 0.16 H* (0-0.03) ng/mL Consult Discharge Plan - Plan Referrals: Hal Monroy MD [Primary Care Provider] - 11/21/16 9:30 am <Jarrett Navarro - Last Filed: 11/17/16 18:26> Date of Encounter: 11/17/16 - Assessment and plan (1) Acute on chronic systolic (congestive) heart failure Current Visit: Yes Status: Acute Assessment and plan: Meds adjusted. (2) Atrial fibrillation Current Visit: Yes Status: Chronic Qualifiers: Atrial fibrillation type: chronic Qualified Code(s): I48.2 - Chronic atrial fibrillation (3) JORGE (obstructive sleep apnea) Current Visit: Yes Status: Acute (4) CAD (coronary artery disease) Current Visit: Yes Status: Chronic Qualifiers: Coronary Disease-Associated Artery/Lesion type: bypass graft [place] vs. transplanted heart: [place] heart Associated angina: without angina Qualified Code(s): I25.810 - Atherosclerosis of coronary artery bypass graft(s) without angina pectoris (5) Nicotine dependence Current Visit: No Status: Chronic Qualifiers: Nicotine product type: cigarettes Substance use status: other nicotine- induced disorder Qualified Code(s): F17.218 - Nicotine dependence, cigarettes , with other nicotine-induced disorders (6) COPD exacerbation Current Visit: No Status: Acute (7) Hypertension Current Visit: No Status: Chronic Qualifiers: Hypertension type: essential hypertension Qualified Code(s): I10 - Essential (primary) hypertension - Constitutional Vitals: Temp Pulse Resp BP Pulse Ox 98.1 F 87 18 97/61 89 11/17/16 15:16 11/17/16 15:16 11/17/16 15:58 11/17/16 15:16 11/17/16 15:58 Internal Medicine: Result - Labs CBC & Chem 7: 11/15/16 04:49 11/17/16 09:28 Labs: BMP 11/17/16 09:28 Sodium 142 Potassium 3.4 L D Chloride 98 Carbon Dioxide 35 H BUN 39 H D Creatinine 1.01 Glucose 116 H Calcium 9.4 Cardiac Enzymes 11/17/16 Range/Units 09:28 Troponin I 0.16 H* (0-0.03) ng/mL - Impressions Impressions Chest X-Ray 11/17/16 11:56 IMPRESSION: Patchy consolidation has developed at the peripheral right costophrenic angle. This could represent atelectasis or pneumonia. Otherwise no significant change. D/ / 11/17/2016 12:48:35 Bill Santana MD / saeid Interpreting Provider: Bill Santana MD - Attending Attestation I examined this patient and my medical decision-making was reviewed with the Resident Physician on 11/17/16. I agree with the documented findings, disposition and treatment plan as described except to the extent set forth below. Ms. Rodarte is currently admitted for a fib with RVR and dyspnea. She is moderate to high risk due to potential for worsening respiratory and cardiac status. Ms. Rodarte feels very tired today. No CP. ? dyspnea today. No GI symptoms. No fever or chills. Exam Alert. Comfortable Heart irreg - not tachy Lungs diminished - no wheeze Edema present I/P 1. A fib with RVR - better rate controlled currently. Appreciate card input. 2. Chronic systolic CHF - ARB and aldactone added. Monitor K tomorrow. On beta patti Daughter updated on plan. Will ask pulm rehab to see and arrange outpatient. BNP better. CXR - ? infiltrate - has completed Z abhilash and now has no fever or leukocytosis. Probable d/c tomorrow.
[2016-11-17 11:02] LABS: % Iron Saturation 18 % (15-50); BUN/Creatinine Ratio 39 (6-26); Calcium 9.4 mg/dL (8.6-10.8); Carbon Dioxide 35 mEq/L (19-29); Chloride 98 mEq/L (98-109); Glucose 116 mg/dL (70-99); Iron 76 mcg/dL (50-170); Osmolality,Calculated 304 (280-300); Sodium 142 mEq/L (136-145); Transferrin 298 mg/dL (180-382); eGFR For African Americans > 60 (> 60); eGFR For Non-African Americans 54 (> 60)
[2016-11-17 11:04] LABS: Blood Urea Nitrogen 39 mg/dL (7-20); Potassium 3.4 mEq/L (3.5-4.5)
--- NOTE | 2016-11-17 12:51 | Cardiology Progress Note ---
Date of Encounter: 11/17/16 Time of Encounter: 12:00 Assessment and Plan (1) Combined systolic and diastolic heart failure Current Visit: Yes Status: Acute Patient with mild reduction in LVEF, 35% from 40-45% previously thought secondary to tachy-induced. She appears largely euvolemic and she states that she is feeling much better and ready to go home. Her renal function had just started to decline prompting lasix to be discontinued. Agree with restarting PO lasix. Would recommend 40mg BID. To some degree, her SOB is secondary to COPD. I discussed this with the patient's Daughter who is reluctant to let patient go home. I also recommended repeat CXR and BNP. Her LE edema is chronic and in part related to venous insufficiency. Recommend using compression stockings and elevating legs. Also recommend monitoring weights at home and restricting fluids to <2L per day. May need to consider adding spironolactone. Not on ARB/ACEI for unclear reasons. Will add low dose lisinopril 2.5mg daily. Qualifiers: Heart failure chronicity: acute on chronic Qualified Code(s): I50.43 - Acute on chronic combined systolic (congestive) and diastolic (congestive) heart failure (2) Atrial fibrillation Current Visit: Yes Status: Chronic Patient previously on metoprolol 50mg TID at home. Recommend increasing present dose of 50mg BID to 75mg BID. Heart rates are presently acceptable. She is anticoagulated with eliquis. Qualifiers: Atrial fibrillation type: chronic Qualified Code(s): I48.2 - Chronic atrial fibrillation Discussion w patient/family: The assessment and plan as outlined above was discussed with the patient's daughter in detail. Will plan on seeing her as an outpatient. Subjective Principal diagnosis: Afib with RVR; volume overload Interval history: Asked to see patient at request of Daughter. Daughter has multiple questions about CHF, AFIB, COPD, discharge planning. The patient herself denies complaints. She states she is feeling much better. She denies chest pain or symptomatic SOB. Objective Vital Signs, Last 4 Hours Temp Pulse Resp BP Pulse Ox 11/17/16 11:06 97.7 F 71 18 106/67 98 11/17/16 09:57 20 99 General: Conversant, No Apparent Distress HEENT: Mucus Membranes Moist Neck: Other (JVP does not appear elevated) Cardiac: Other (irregularly irregular, no apparent murmur) Lungs: Other (poor air entry bilaterally, no rales wheeze or rhonchi) Neuro: Alert and responsive, No focal deficits noted Abdomen: Soft, Other (normal bowel sounds) Extremities: Other (mild-moderat bilateral LE edmea) Results 11/15/16 04:49 11/17/16 09:28 Lab Results 11/17/16 11/17/16 09:28 09:28 Sodium 142 Potassium 3.4 L D Chloride 98 Carbon Dioxide 35 H BUN 39 H D Creatinine 1.01 Glucose 116 H Calcium 9.4 Troponin I 0.16 H* Consult Discharge Plan - Plan Referrals: Hal Monroy MD [Primary Care Provider] - 11/21/16 9:30 am
[2016-11-17] MEDS: Furosemide 40 MG TABLET PO SCH (16:33)
[2016-11-17] MEDS: traZODone 50 MG TABLET PO SCH (20:26)
[2016-11-18] MEDS: Ipratropium/Albuterol Neb 3 ML IH SCH ×2 (04:31→09:13)
[2016-11-18 06:53] LABS: Basophils % 0.1 %; Eosinophils % 0.2 %; Hematocrit 36.7 % (35.3-44.9); Hemoglobin 11.4 g/dL (11.5-15.4); Immature Granulocytes % 1.1 % (0-4); Lymphocytes # 1.8 K/mcL (0.6-4.6); Lymphocytes % 18.5 %; Mean Corpuscular HGB Conc 31.1 g/dL (31.6-35.5); Mean Corpuscular Hemoglobin 29.1 pg (28.0-33.3); Mean Corpuscular Volume 93.6 fL (83.0-100.0); Mean Platelet Volume 11.4 fL (9.4-12.4); Monocytes # 0.9 K/mcL (0.0-1.3); Monocytes % 9.6 %; Neutrophils # 6.9 K/mcL (1.6-8.9); Platelet Count 167 K/mcL (140-400); Red Blood Count 3.92 M/mcL (3.82-4.97); Red Cell Distribution Width 14.1 % (11.5-14.5); Segmented Neutrophils % 70.5 %
[2016-11-18 07:05] LABS: BUN/Creatinine Ratio 38 (6-26); Blood Urea Nitrogen 33 mg/dL (7-20); Calcium 9.1 mg/dL (8.6-10.8); Carbon Dioxide 34 mEq/L (19-29); Chloride 97 mEq/L (98-109); Glucose 97 mg/dL (70-99); Osmolality,Calculated 297 (280-300); Potassium 4.1 mEq/L (3.5-4.5); Sodium 140 mEq/L (136-145); eGFR For African Americans > 60 (> 60); eGFR For Non-African Americans > 60 (> 60)
[2016-11-18 07:32] LABS: Platelet Estimate Slight Decrease (Normal)
--- NOTE | 2016-11-18 08:23 | Discharge Summary ---
Date of Encounter: 11/18/16 Time of Encounter: 08:20 - Discharge Diagnosis (1) Acute on chronic systolic (congestive) heart failure Priority: Primary Status: Acute (2) Atrial fibrillation Priority: Primary Status: Chronic Qualifiers: Atrial fibrillation type: chronic Qualified Code(s): I48.2 - Chronic atrial fibrillation (3) Chronic hypoxemic respiratory failure Priority: Secondary Status: Chronic (4) JORGE (obstructive sleep apnea) Priority: Secondary Status: Acute (5) CAD (coronary artery disease) Priority: Secondary Status: Chronic Qualifiers: Coronary Disease-Associated Artery/Lesion type: bypass graft [place] vs. transplanted heart: [place] heart Associated angina: without angina Qualified Code(s): I25.810 - Atherosclerosis of coronary artery bypass graft(s) without angina pectoris (6) Nicotine dependence Priority: Secondary Status: Chronic Qualifiers: Nicotine product type: cigarettes Substance use status: other nicotine- induced disorder Qualified Code(s): F17.218 - Nicotine dependence, cigarettes , with other nicotine-induced disorders (7) COPD exacerbation Priority: Secondary Status: Acute (8) Hypertension Priority: Secondary Status: Chronic Qualifiers: Hypertension type: essential hypertension Qualified Code(s): I10 - Essential (primary) hypertension (9) Ischemic cardiomyopathy Priority: Secondary Status: Chronic - Discharge Medications Prescriptions: Lisinopril [Zestril] 2.5 mg PO DAILY #30 tablet Metoprolol [Lopressor] 50 mg PO BID #60 tablet Spironolactone [Aldactone] 12.5 mg PO DAILY #30 tablet Home Medications: Apixaban [Eliquis] 5 mg PO BID 08/04/16 [History] Clopidogrel [Plavix] 75 mg PO DAILY 08/04/16 [History] Ferrous Sulfate 325 mg PO DAILY 08/04/16 [History] Fluticasone/Salmeterol [Advair 500-50 Diskus] 1 each IH BID 08/04/16 [History] Pantoprazole Sodium [Protonix] 40 mg PO DAILY 08/04/16 [History] Pravastatin Sodium [Pravachol] 80 mg PO HS 08/04/16 [History] Sennosides/Docusate Sodium [Senna-S Tablet] 1 each PO DAILY PRN 08/04/16 [ History] Trazodone HCl 100 mg PO HS 11/10/16 [History] Ipratropium/Albuterol Neb [Duoneb] 3 ml IH Q6HR PRN #30 11/13/16 [Rx] predniSONE [PredniSONE] 40 mg PO DAILY #14 tablet 11/13/16 [Rx] Furosemide [Lasix] 40 mg PO BIDDIURETIC tablet 11/18/16 [Rx] Lisinopril [Zestril] 2.5 mg PO DAILY #30 tablet 11/18/16 [Rx] Metoprolol [Lopressor] 50 mg PO BID #60 tablet 11/18/16 [Rx] Spironolactone [Aldactone] 12.5 mg PO DAILY #30 tablet 11/18/16 [Rx] Allergies/Adverse Reactions: Allergies Iodinated Contrast- Oral and IV Dye [Iodinated Contrast Media - Oral and] Adverse Reaction (Verified 11/10/16 15:03) See Comments patient unsure of what happens with this??? Sulfa (Sulfonamide Antibiotics) Adverse Reaction (Verified 10/06/16 20:40) Hives tape Adverse Reaction (Uncoded 08/04/16 12:35) Hives - Notes to Outpatient Provider We have made adjustments to her cardiac meds. I have referred her to pulm rehab and discussed with her daughter that if not pulm rehab maybe an outpatient therapy referral (she has been seen by PT here and no home care needs ). Date of admission: 11/14/16 13:11 Primary care physician: Hal Monroy MD Consults: 11/14/16 10:52 Consult to Bank Accountant [CONS] Routine Reason for SW Consult: Patient concenred home CPAP is not working correctly. ? new machine 11/14/16 10:55 Consult to Cardiology [CONS] Routine Comment: Consulting Provider: [facility] [place] Reason for Consult: A-fib with RVR Call Completed: Yes 11/15/16 16:00 PT [Consult to Physical Therapy] [CONS] Routine Comment: Evaluate, develop and implement POC Reason for Consult: Discharge planning 11/17/16 11:59 Consult to Pulmonary Rehab [CONS] Routine Reason for Consult: Dyspnea with exertion. Known COPD. Daughter concerned about home function - does not meet skilled PT Call Completed: No Discharging clinician: Jarrett Navarro Anticipated date of discharge: 11/18/16 - Patient Status Disposition: Home, Self-Care Condition: Fair Functional capacity at discharge: uses cane/walker Overall status at discharge: patient is progressing back to baseline - Discharge Instructions Follow Up With: Hal Monroy MD [Primary Care Provider] - 11/21/16 9:30 am - Diet and Activity Activity: resume usual activities as tolerated Diet: advance to your usual diet Hospital course: Ms. Rodarte is a 71 year old female with hx of chronic a fib and chronic systolic CHF brought back to ED with rapid a fib and dypsnea. She had been hospitalized and placed on steroids and abx for presumed COPD exac/pneumonia. Her cardiac meds had been adjusted. When she returned home she became more dyspneic and tachycardic. At that time she was brought back to ED and found to be in rapid a fib. She was subsequently admitted. Ms. Rodarte was admitted to [facility]. She was placed back on her aerosols as well as her steroids and abx. She completed a course of azithromycin. She had a repeat echo which showed EF to be 35%. Her heart rate was better controlled and she was feeling back to baseline. Ms. Rodarte's daughter had many concerns about the patient's medical condition and cardiac status. Ms. Rodarte was seen by cardiology and medication adjustments were made including addition of spirinolactone and lisinopril. Beta patti was increased again. Potassium will be held due to addition of new meds. Ms Rodarte was also evaluated by therapy and no needs were identified. She will be referred to outpatient pulmonary rehab/therapy. On 11/18 Ms Rodarte feels well. She is afebrile and vitals appear to be stable. She is felt ready for discharge home. - Time Spent with Patient Total time spent providing and/or coordinating discharge services: 41 min - Constitutional Vitals: Temp Pulse Resp BP Pulse Ox 97.6 F 123 17 155/91 91 11/18/16 06:55 11/18/16 06:55 11/18/16 06:55 11/18/16 06:55 11/18/16 06:55 General appearance: Present: cooperative, A&O X 3, pleasant, answers questions appropriately - Head Head exam: Present: normocephalic - Eye Eye exam: Present: EOMI, conjuntiva pink - ENT ENT exam: Present: mucous membranes moist - Respiratory Respiratory exam: Present: CTAB. Absent: rhonchi, wheezes - Cardiovascular Cardiovascular exam: Present: irregular rhythm. Absent: tachycardia - GI/Abdominal GI/Abdominal exam: Present: soft. Absent: tenderness - Extremities Exam Extremities exam: Present: warm. Absent: tenderness - Neurological Exam Neurological exam: Present: alert, oriented X3, no focal deficits - Psychiatric Psychiatric exam: Present: normal affect, normal mood - Skin Skin exam: Present: warm. Absent: rash
[2016-11-18] MEDS ORDERED: Spironolactone 25 MG TABLET PO SCH (09:00)
[2016-11-18] MEDS: Budesonide/Formoterol 160/4.5 MDI IH SCH (09:13)
[2016-11-18] MEDS: predniSONE 20 MG TABLET PO SCH (10:32)
[2016-11-18] MEDS: APIXABAN 5 MG TABLET PO SCH (10:32)
[2016-11-18] MEDS: Furosemide 40 MG TABLET PO SCH (10:32)
[2016-11-18 11:22] VITALS: BP 111/78
== END 2016-11-18 14:37 | disposition home or self-care (01) | DRG 292 ==
LOC: 3ANU → 2ANU 09:57
PROVIDERS: ADMIT Family Medicine; ATTEND Internal Medicine

== ENCOUNTER 2016-12-06 10:56 | Inpatient (IN) ==
--- NOTE | 2016-12-06 12:07 | Emergency Department Note ---
Disposition Clinical Impression: CVA (cerebral vascular accident) Qualifiers: CVA mechanism: unspecified Qualified Code(s): I63.9 - Cerebral infarction, unspecified Cerumen impaction Qualifiers: Laterality: right Qualified Code(s): H61.21 - Impacted cerumen, right ear Disposition: Admitted As Inpatient Condition: Fair General Adult HPI - General Chief complaint: ED Ear Stated complaint: Ear ache,STAHL,Sinus Time Seen by Provider: 12/06/16 11:24 Source: patient Limitations: no limitations Nursing Notes Reviewed: Yes Vital Signs Reviewed: Yes - History of Present Illness HPI Narrative: Patient does have a history of atrial fibrillation and did have cardioversion at [facility] 2 weeks ago and presents today with complaints of intermittent confusion since the cardioversion and they are concerned about stroke. She has an AICD. Does not have any slurred speech, facial droop or unilateral numbness or weakness of the extremities but does feel that her balance is poor. She does use Plavix and Eliquis for the atrial fibrillation. Has also had a temperature 101.1 degrees at home this morning and does have a cough but no rhinorrhea or sneezing. Some blurred vision. No dysuria or urinary frequency, blood in the urine or stool. Does have swelling of the right lower extremity for the last 4 or 5 days. No pain or numbness of extremities. Does have bruising of the left upper extremity secondary to blood draws at [place]. No skin rash. Social history: Smoker, no alcohol. Is here with her daughter. Also feels that her right ear is plugged and is wondering if this is contributing to the poor balance Pain Scale: 7 - Related Data Home Medications Medication Instructions Recorded Confirmed Apixaban [Eliquis] 5 mg PO BID 08/04/16 12/06/16 Clopidogrel [Plavix] 75 mg PO DAILY 08/04/16 12/06/16 Ferrous Sulfate 325 mg PO DAILY 08/04/16 12/06/16 Fluticasone/Salmeterol [Advair 1 each IH BID 08/04/16 12/06/16 500-50 Diskus] Pantoprazole Sodium [Protonix] 40 mg PO DAILY 08/04/16 12/06/16 Pravastatin Sodium [Pravachol] 80 mg PO HS 08/04/16 12/06/16 Sennosides/Docusate Sodium 1 tab PO DAILY PRN 08/04/16 12/06/16 [Senna-S Tablet] Trazodone HCl 100 mg PO HS 11/10/16 12/06/16 Oxygen 3 l NS AD 12/06/16 12/06/16 Previous Rx's Medication Instructions Recorded Ipratropium/Albuterol Neb [Duoneb] 3 ml IH Q6HR PRN #30 11/13/16 Furosemide [Lasix] 20 mg PO BID #60 tablet 11/18/16 LORazepam [Ativan] 0.25 mg PO TID PRN #10 tablet 11/18/16 Lisinopril [Zestril] 2.5 mg PO DAILY #30 tablet 11/18/16 Metoprolol [Lopressor] 50 mg PO BID #60 tablet 11/18/16 Spironolactone [Aldactone] 12.5 mg PO DAILY #30 tablet 11/18/16 Allergies Allergy/AdvReac Type Severity Reaction Status Date / Time bupropion [From Wellbutrin] Allergy Swelling Verified 12/06/16 11:11 of Lip/Tongue/Throat Varenicline [From Chantix] Allergy Swelling Verified 12/06/16 11:11 of Lip/Tongue/Throat Iodinated Contrast- Oral and AdvReac See Verified 11/10/16 15:03 IV Dye Comments [Iodinated Contrast Media - Oral and] Sulfa (Sulfonamide AdvReac Hives Verified 10/06/16 20:40 Antibiotics) tape AdvReac Hives Uncoded 08/04/16 12:35 Review of Systems: Has also had a temperature 101.1 degrees at home this morning and does have a cough but no rhinorrhea or sneezing. Some blurred vision. No dysuria or urinary frequency, blood in the urine or stool. Does have swelling of the right lower extremity for the last 4 or 5 days. No pain or numbness of extremities. Does have bruising of the left upper extremity secondary to blood draws at [place]. No skin rash. Past Medical History - Past Medical History Medical history: Reports: atrial fibrillation, cardiomyopathy, CHF, COPD, coronary artery disease, GERD, hypertension, myocardial infarction Surgical history: Reports: angioplasty/stent, coronary bypass (CABG), hysterectomy, pacemaker/AICD Psychiatric history: Reports: anxiety, depression - Social History Smoking Status: Current every day smoker Smokeless Tobacco Status: No Alcohol use: Reports: none Drug use: Reports: none Physical Exam CONSTITUTIONAL: Well-appearing; well-nourished; A&O X3, in no apparent distressshe does know the month and year and name of the hospital and day of the week. HEAD: Normocephalic; atraumatic. EYES: PERRL, EOMI, no scleral icterus EARS: Cerumen impaction on the right, some minimal amount of fluid behind the eardrum on the left but no erythema or bulging NOSE: The nose is normal in appearance without rhinorrhea NECK: Supple without rigidity, no CAROLYN RESP: Normal chest excursion with respiration; breath sounds rith crackles right lung and left clear; no wheezes, rhonchi, or rales CARD: Regular rhythm, without murmurs, rub or gallop ABD: Non-distended; non-tender, soft, without rigidity, rebound or guarding SKIN: Normal for age and race; warm and dry; no apparent lesions, no rash NEUROLOGICAL: Patient is alert and oriented times three. Cranial nerves III- XII are intact. Sensory and motor functions are intact. Strength is 5/5 for flexion and extension in all 4 extremities. Patellar DTRS are equal and intact. Finger to nose testing is equal and normal bilaterally. extremities: Pulses 2+ and equal 4 extremities, lower extremities are warm and pink, mild right lower extremity swelling, no calf muscle pain - General Limitations: no limitations General appearance: alert Course Vital Signs Temperature 98.1 F 12/06/16 11:11 Pulse Rate 99 12/06/16 11:11 Respiratory Rate 20 12/06/16 11:11 Blood Pressure 122/79 12/06/16 11:11 O2 Sat by Pulse Oximetry 98 12/06/16 11:11 Temperature 98.1 F 12/06/16 11:11 Pulse Rate 113 12/06/16 17:42 Respiratory Rate 18 12/06/16 17:42 Blood Pressure 96/71 12/06/16 17:42 O2 Sat by Pulse Oximetry 96 12/06/16 17:42 Oxygen Delivery Oxygen Delivery Room Air Medical Decision Making - MDM Narrative Medical decision making narrative: Labs are ordered as well as CT scan of the brain, EKG, investment associate, the patient does have atrial fibrillation with a mildly increased ventricular response. Does have some crackles right lung field and a temperature this morning according to the daughter which was done with a thermometer and so this will be further evaluated with a x-ray of the chest, urine testing, blood cultures. The patient will be admitted. 1211 I did review the patient's labs and CT result which does not show evidence of bleed or mass or acute stroke. My concern is for stroke or TIA based on the fact that she does have a sense of imbalance and increased confusion and this has worsened since her cardioversion several weeks ago for atrial fibrillation. Her heart rate is minimally elevated with the atrial fibrillation and I did speak with the hospitalist who accepts the patient for admission. He recommends Lopressor 5 mg and I did give this to the patient. I did perform a ear exam and she does have some discomfort in the right ear and a cerumen impaction which can be further managed as an outpatient upon hospital discharge 1610 Patient does use tikosyn and did receive and order for one dose of Lopressor 5 mg IV but has not yet received this so it is canceled and her heart rate is actually higher and is now up to the 130s 140s so I will start her on Cardizem and give her a bolus of 10 and then a drip at 10. [address] Sun and we discussed the case and afib w rvr and we will continue the cardizem drip. Current BP 108 and current pulse 99-111. 1747 I did speak w the pt and her daughter about transfer to [facility] and they both want to stay here 1810 - Medical Records Medical records reviewed: Yes I reviewed the patient's medical records. - Lab Data Lab results reviewed: Yes I reviewed the patient's lab results. Result diagrams: 12/06/16 12:32 12/06/16 12:32 Lab Results 12/06/16 12/06/16 12/06/16 Range/Units 12:32 12:32 12:32 WBC 10.6 (4.3-11.1) K/mcL RBC 3.76 L (3.82-4.97) M/mcL Hgb 11.0 L (11.5-15.4) g/dL Hct 36.0 (35.3-44.9) % MCV 95.7 (83.0-100.0) fL MCH 29.3 (28.0-33.3) pg MCHC 30.6 L (31.6-35.5) g/dL RDW 15.0 H (11.5-14.5) % Plt Count 272 (140-400) K/mcL MPV 10.6 (9.4-12.4) fL Sodium 141 (136-145) mEq/L Potassium 4.2 (3.5-4.5) mEq/L Chloride 105 (98-109) mEq/L Carbon Dioxide 28 (19-29) mEq/L BUN 24 H (7-20) mg/dL Creatinine 1.00 (0.57-1.11) mg/dL Est GFR ( Amer) > 60 (> 60) Est GFR (Non-Af Amer) 54 L (> 60) BUN/Creatinine Ratio 24 (6-26) Glucose 284 H (70-99) mg/dL Calculated Osmolality 306 H (280-300) Lactic Acid 2.9 H (0.5-2.2) mmol/L Calcium 9.4 (8.6-10.8) mg/dL Urine Color (Yellow) Urine Clarity (Clear) Urine pH (5.0-8.0) pH Units Ur Specific [place] (1.010-1.025) Urine Protein (Neg-Trace) mg/dL Urine Glucose (UA) (Normal) mg/dL Urine Ketones (Negative) mg/dL Urine Blood (Negative) Urine Nitrite (Negative) Urine Bilirubin (Negative) Urine Urobilinogen (Normal) mg/dL Ur Leukocyte Esterase (Negative) 12/06/16 Range/Units 12:41 WBC (4.3-11.1) K/mcL RBC (3.82-4.97) M/mcL Hgb (11.5-15.4) g/dL Hct (35.3-44.9) % MCV (83.0-100.0) fL MCH (28.0-33.3) pg MCHC (31.6-35.5) g/dL RDW (11.5-14.5) % Plt Count (140-400) K/mcL MPV (9.4-12.4) fL Sodium (136-145) mEq/L Potassium (3.5-4.5) mEq/L Chloride (98-109) mEq/L Carbon Dioxide (19-29) mEq/L BUN (7-20) mg/dL Creatinine (0.57-1.11) mg/dL Est GFR ( Amer) (> 60) Est GFR (Non-Af Amer) (> 60) BUN/Creatinine Ratio (6-26) Glucose (70-99) mg/dL Calculated Osmolality (280-300) Lactic Acid (0.5-2.2) mmol/L Calcium (8.6-10.8) mg/dL Urine Color Yellow (Yellow) Urine Clarity Clear (Clear) Urine pH 6.0 (5.0-8.0) pH Units Ur Specific [place] 1.016 (1.010-1.025) Urine Protein Negative (Neg-Trace) mg/dL Urine Glucose (UA) 250 H (Normal) mg/dL Urine Ketones Negative (Negative) mg/dL Urine Blood Negative (Negative) Urine Nitrite Negative (Negative) Urine Bilirubin Negative (Negative) Urine Urobilinogen Normal (Normal) mg/dL Ur Leukocyte Esterase Negative (Negative) - Radiology Data Radiology results reviewed: Yes I reviewed the patient's radiology results. Critical Care Time Critical Care Time: Yes (afib w rvr - 30 minutes) Attestation: 30 minutes of critical care time was patient regarding her atrial fibrillation with rapid ventricular response, IV medication bolus, IV medication drip, concomitant confusion and imbalance concerning for CVA as well as her altered consciousness NIH Stroke Scale - Level of Consciousness LOC: Alert - LOC Questions LOC Questions: Answers both correctly - LOC Commands LOC Commands: Performs both correctly - Best Gaze Best Gaze: Normal - Visual Visual: No visual loss - Facial Palsy Facial Palsy: Normal - Motor Arms Motor Arm-Left: No drift for 10 seconds Motor Arm-Right: No drift for 10 seconds - Motor Legs Motor Leg-Left: No drift for 5 seconds Motor Leg-Right: No drift for 5 seconds - Limb Ataxia Limb Ataxia: Normal, No Ataxia - Sensory Sensory: Normal - Best Language Best Language: No aphasia - Dysarthria Dysarthria: Normal - Extinction and Inattention Extinction and Inattention: Normal - NIHSS Total Score NIHSS Total Score: 0
[2016-12-06 12:43] LABS: Mean Corpuscular HGB Conc 30.6 g/dL (31.6-35.5); Mean Corpuscular Hemoglobin 29.3 pg (28.0-33.3); Mean Corpuscular Volume 95.7 fL (83.0-100.0); Mean Platelet Volume 10.6 fL (9.4-12.4); Platelet Count 272 K/mcL (140-400); Red Blood Count 3.76 M/mcL (3.82-4.97)
[2016-12-06 12:48] LABS: Bilirubin,Urine Negative (Negative); Blood,Urine Negative (Negative); Clarity,Urine Clear (Clear); Color,Urine Yellow (Yellow); Glucose,Urine (UA) 250 mg/dL (Normal); Ketones,Urine Negative (Negative); Leukocyte Esterase,Urine Negative (Negative); Nitrite,Urine Negative (Negative); Protein,Urine Negative (Neg-Trace); Specific Gravity,Urine 1.016 (1.010-1.025); Urobilinogen,Urine Normal (Normal)
[2016-12-06 13:03] LABS: BUN/Creatinine Ratio 24 (6-26); Blood Urea Nitrogen 24 mg/dL (7-20); Calcium 9.4 mg/dL (8.6-10.8); Carbon Dioxide 28 mEq/L (19-29); Chloride 105 mEq/L (98-109); Glucose 284 mg/dL (70-99); Osmolality,Calculated 306 (280-300); Potassium 4.2 mEq/L (3.5-4.5); Sodium 141 mEq/L (136-145); eGFR For African Americans > 60 (> 60); eGFR For Non-African Americans 54 (> 60)
[2016-12-06] MEDS ORDERED: *HR* Metoprolol 5 MG/5 ML VIAL IVP ONE (16:07)
[2016-12-06] MEDS ORDERED: Acetaminophen 325 MG TABLET PO PRN (17:05)
[2016-12-06] MEDS ORDERED: Naloxone 0.4 MG/ML INJ IVP PRN (17:05)
[2016-12-06] MEDS ORDERED: *HR* LORazepam 0.5 MG TABLET PO PRN (17:09)
--- NOTE | 2016-12-06 17:18 | Internal Med History&Physical ---
<Jared Boggs H - Last Filed: 12/06/16 18:50> Date of Encounter: 12/06/16 Internal Medicine - H&P: HPI History of present illness: Ms. Rodarte is a 71 year old female Internal Medicine - H&P: Meds Apixaban [Eliquis] 5 mg PO BID 08/04/16 [History] Clopidogrel [Plavix] 75 mg PO DAILY 08/04/16 [History] Ferrous Sulfate 325 mg PO DAILY 08/04/16 [History] Fluticasone/Salmeterol [Advair 500-50 Diskus] 1 each IH BID 08/04/16 [History] Pantoprazole Sodium [Protonix] 40 mg PO DAILY 08/04/16 [History] Pravastatin Sodium [Pravachol] 80 mg PO HS 08/04/16 [History] Sennosides/Docusate Sodium [Senna-S Tablet] 1 tab PO DAILY PRN 08/04/16 [History ] Trazodone HCl 100 mg PO HS 11/10/16 [History] Ipratropium/Albuterol Neb [Duoneb] 3 ml IH Q6HR PRN #30 11/13/16 [Rx] Furosemide [Lasix] 20 mg PO BID #60 tablet 11/18/16 [Rx] LORazepam [Ativan] 0.25 mg PO TID PRN #10 tablet 11/18/16 [Rx] Lisinopril [Zestril] 2.5 mg PO DAILY #30 tablet 11/18/16 [Rx] Metoprolol [Lopressor] 50 mg PO BID #60 tablet 11/18/16 [Rx] Spironolactone [Aldactone] 12.5 mg PO DAILY #30 tablet 11/18/16 [Rx] Oxygen 3 l NS AD 12/06/16 [History] Allergies bupropion [From Wellbutrin] Allergy (Verified 12/06/16 11:11) Swelling of Lip/Tongue/Throat Varenicline [From Chantix] Allergy (Verified 12/06/16 11:11) Swelling of Lip/Tongue/Throat Iodinated Contrast- Oral and IV Dye [Iodinated Contrast Media - Oral and] Adverse Reaction (Verified 11/10/16 15:03) See Comments patient unsure of what happens with this??? Sulfa (Sulfonamide Antibiotics) Adverse Reaction (Verified 10/06/16 20:40) Hives tape Adverse Reaction (Uncoded 08/04/16 12:35) Hives All Systems PM: A 10-system review of systems was performed and is negative for pertinent findings except as documented above in the HPI. - Constitutional Vitals: Temp Pulse Resp BP Pulse Ox 98.1 F 113 16 105/90 96 12/06/16 11:11 12/06/16 17:42 12/06/16 18:09 12/06/16 18:09 12/06/16 17:42 Internal Med - H&P Results - Labs CBC & Chem 7: 12/06/16 12:32 12/06/16 12:32 - Attending Attestation A fib with RVR continue Tikosyn and metoprolol per cardiology recommendations Transfer to [facility] was offered but the patient and her daughter prefer to stay here. may resume cardizem drip if tachycardia is worse (HR 99 during my examination) and if BP allows For this encounter, I have reviewed the ADJUSTER LEADER or PA documentation, treatment plan, and medical decision making; and I have had face to face time with this patient. <Fabienne Estrada - Last Filed: 12/06/16 18:59> Date of Encounter: 12/06/16 Time of Encounter: 17:15 Assessment and Plan (1) Atrial fibrillation with RVR Current visit: Yes Status: Acute Patient in Afib with RVR, HR 130s-150s. She was recently hospitalized at [facility] and had a cardioversion and was started on Tikosyn anti-arrhythmic. She also takes metoprolol for rate control and Eliquis for anti-coagulation. Patient's daughter reports they were told at [facility] patient may need ablation and pacemaker lead placement. Patient started on Cardizem drip in ED. Continue and titrate to HR < 90. Continue home dose of metoprolol, tikosyn and eliquis. 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 Cardiology consulted, spoke with Dr. Sun who is aware of patient and reported Dr. Rebolledo will see patient tomorrow. (2) Balance problem Current visit: Yes Status: Acute Patient reporting she is having trouble with balance, as well as occasional confusion, occasional blurred vision. Patient's daughter reports she observes left-sided weakness. Symptoms have been going on for about [address] Head showed multifocal areas of low attenuation consistent with prior ischemia and chronic microvascular ischemic changes. On exam, patient neurologically intact with equal strength bilaterally, able to stand on one foot bilaterally, cranial nerves intact, no pronator drift. Will consult neurology for evaluation and determination of any further testing. (3) COPD (chronic obstructive pulmonary disease) Current visit: Yes Status: Chronic Patient reporting occasional shortness of breath, but not increased from previous, no cough. COPD not in exacerbation. Continue duoneb treatments QID PRN continue home dose of Advair BID Titrate oxygen to maintain saturation > 90% Qualifiers: COPD type: unspecified COPD Qualified Code(s): J44.9 - Chronic obstructive pulmonary disease, unspecified (4) Chronic anticoagulation Current visit: Yes Status: Chronic Patient on Eliquis for history of afib. No reports of black or bloody stools, or concerns of bleeding. Continue home dose of eliquis. (5) Hypertension Current visit: Yes Status: Chronic Blood pressure controlled since arrival. Continue home dose of lisinopril, aldactone. Qualifiers: Hypertension type: essential hypertension Qualified Code(s): I10 - Essential (primary) hypertension (6) Nicotine dependence Current visit: Yes Status: Chronic Smoking cessation education ordered. Nicotine patch ordered. 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 Echo 11/14/16 showed LVEF of 35%. Patient reports LE edema appears better than before. Lungs clear on auscultation. CXR shows no acute process. Patient with +1 BLE edema. Continue home dose of lasix. Daily weights Cardiac diet I/Os. Qualifiers: Heart failure chronicity: acute on chronic Qualified Code(s): I50.43 - Acute on chronic combined systolic (congestive) and diastolic (congestive) heart failure (8) CAD (coronary artery disease) Current visit: Yes Status: Chronic Patient with history of CAD s/p CABG and stent placement. Patient denies any current chest pain. Continue home dose of plavix, metoprolol, lisinopril. Qualifiers: Coronary Disease-Associated Artery/Lesion type: bypass graft [place] vs. transplanted heart: [place] heart Associated angina: without angina Qualified Code(s): I25.810 - Atherosclerosis of coronary artery bypass graft(s) without angina pectoris (9) JORGE (obstructive sleep apnea) Current visit: Yes Status: Acute Respiratory therapy consulted for CPAP. (10) Type 2 diabetes mellitus Current visit: Yes Status: Acute Hold Metformin. Check blood sugars ACHS Sliding scale correction dose. hypoglycemic protocol. 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 Internal Medicine - H&P: HPI Chief complaint: balance problems Admitted From: Emergency Dept Plans for Post Hospital Care: Home History of present illness: Ms. Rodarte is a 71 year old female with atrial fibrillation, hypertension, CHF, COPD, coronary artery disease status post CABG and stent placement, sleep apnea , GERD presented to the emergency department today with multiple complaints. Patient's daughter reports she is having frequent headaches, lightheadedness, balance issues, intermittent confusion, and blurred vision. Patient's daughter reports that she observes a left-sided weakness. Patient reports occasional headache and lightheadedness, balance issues, occasional shortness of breath. All of these complaints have been going on on and off for the last month. Patient has been hospitalized multiple times over the last month. On 6:30 she was hospitalized with CHF exacerbation and COPD exacerbation, she returned on 72 with A. fib with RVR. Daughter reports that she will then went to [facility] with A. fib and was cardioverted at that time. Daughter reports that they were told she may need an ablation and pacemaker lead placement at [facility]. Evaluation in the emergency department revealed elevated lactate of 2.9. Urinalysis was negative for infection, chest x-ray showed no acute process. Head CT showed multifocal areas of low attenuation consistent with prior ischemia and chronic microvascular ischemic changes however no comparative image. White blood cell count was normal at 10.6. She was afebrile at 98.1. Initially her heart rate was mildly elevated in the 90s, but she progressed into A. fib with RVR with heart rate 130s and 140s. Patient been started on Cardizem drip. On exam, patient alert and oriented, in no acute distress. Satting 96% on room air, heart rate was in the 130s to 140s on my exam. Patient denied any current chest pain, shortness of breath, lightheadedness or dizziness. Neurologically intact, equal strength bilaterally, no pronator drift. Past Med Surg Social Fam HX - Past Medical History Medical history: atrial fibrillation, cardiomyopathy, CHF, COPD, coronary artery disease, GERD, hypertension, myocardial infarction Psychiatric history: anxiety, depression - Past Surgical History Surgical History: angioplasty/stent, coronary bypass (CABG), hysterectomy, pacemaker/AICD - Social History Smoking Status: Current every day smoker Smokeless Tobacco Status: No Alcohol use: none Drug use: none - Family History Father Adopted: No Family Member Ethnicity: Non- Living Status: Hx Family Cardiac Disorders: Yes Hx Family Respiratory Disorders: No Hx Family Cancer: No Hx Family GI Disorders: No Hx Family Endocrine Disorder: No Hx Family Neuromuscular Disorders: No Hx Family Neurologic Disorders: No Hx Family HEENT Disorders: No Hx Family Autoimmune Disorders: No Mother Living Status: Hx Family Endocrine Disorder: Yes (DM) All Systems PM: A 10-system review of systems was performed and is negative for pertinent findings except as documented above in the HPI. - Constitutional Constitutional: chills, no fever(s), no night sweats - EENT Eyes: blurry vision (occasional), no change in vision, no discharge, no pain, no photophobia Ears: no ear discharge, no ear pain, no tinnitus Nose, mouth and throat: no dysphagia, no nasal discharge, no neck pain, no sore throat - Cardiovascular Cardiovascular ROS IM: dyspnea, lightheadedness, palpitations, no chest pain, no diaphoresis, no syncope - Respiratory Respiratory: no cough, no dyspnea, no wheezing, no excessive phlegm production - Gastrointestinal Gastrointestinal: no abdominal pain, no diarrhea, no hematemesis, no hematochezia, no melena, no nausea, no vomiting - Genitourinary Genitourinary: no change in urinary stream, no dysuria, no flank pain, no hematuria - Musculoskeletal Musculoskeletal ROS IM: no numbness, no tingling - Integumentary Integumentary IM: no rash, no unusual bruising - Neurological Neurological ROS: confusion (occasional), no convulsions, no focal weakness, no numbness, no tingling, no tremor(s) - Hematologic/Lymphatic Hematologic/Lymphatic: no easy bruising - Constitutional Vitals: Temp Pulse Resp BP Pulse Ox 98.1 F 99 20 122/79 98 12/06/16 11:11 12/06/16 11:11 12/06/16 11:11 12/06/16 11:11 12/06/16 11:11 General appearance: Present: A&O X 3, pleasant, no acute distress - Head Head exam: Present: atraumatic, normocephalic - Eye Eye exam: Present: PERRL, conjuntiva pink, sclera anicteric Pupils: Present: PERRL - Neck Neck exam general surgery: Present: supple, trachea midline. Absent: lymphadenopathy - Respiratory Respiratory exam: Present: CTAB. Absent: accessory muscle use, rales, rhonchi, wheezes - Cardiovascular Cardiovascular exam: Present: irregular rhythm, +S1, +S2, tachycardia. Absent: diastolic murmur, gallop, rubs, systolic murmur - GI/Abdominal GI/Abdominal exam: Present: normal bowel sounds, soft, no peritoneal signs. Absent: distended, tenderness - Extremities Exam Extremities exam: Present: pedal edema (BLE +1 edema), warm, radial pulses palpable and symetrical. Absent: calf tenderness, cyanotic - Neurological Exam Neurological exam: Present: CN II-XII intact, oriented X3, no focal deficits. Absent: pronater drift, facial droop, speech deficit - Expanded Neurological Exam Patient oriented to: Present: person, place, time Cranial Nerves: EOM's intact PM: Normal, gag reflex PM: Normal, nystagmus PM: Normal, tongue deviation PM: Normal Cerebellar function: Romberg: Normal Upper motor neuron: pronator drift: Normal Neuro motor strength exam: LUE: 5, RUE: 5, LLE: 5, RLE: 5 - Skin Skin exam: Present: dry, intact Internal Med - H&P Results - Labs CBC & Chem 7: 12/06/16 12:32 12/06/16 12:32 Labs: All Lab Results (24 Hours) 12/06/16 12/06/16 12/06/16 Range/Units 12:32 12:32 12:32 WBC 10.6 (4.3-11.1) K/mcL RBC 3.76 L (3.82-4.97) M/mcL Hgb 11.0 L (11.5-15.4) g/dL Hct 36.0 (35.3-44.9) % MCV 95.7 (83.0-100.0) fL MCH 29.3 (28.0-33.3) pg MCHC 30.6 L (31.6-35.5) g/dL RDW 15.0 H (11.5-14.5) % Plt Count 272 (140-400) K/mcL MPV 10.6 (9.4-12.4) fL Sodium 141 (136-145) mEq/L Potassium 4.2 (3.5-4.5) mEq/L Chloride 105 (98-109) mEq/L Carbon Dioxide 28 (19-29) mEq/L BUN 24 H (7-20) mg/dL Creatinine 1.00 (0.57-1.11) mg/dL Est GFR ( Amer) > 60 (> 60) Est GFR (Non-Af Amer) 54 L (> 60) BUN/Creatinine Ratio 24 (6-26) Glucose 284 H (70-99) mg/dL Calculated Osmolality 306 H (280-300) Lactic Acid 2.9 H (0.5-2.2) mmol/L Calcium 9.4 (8.6-10.8) mg/dL Urine Color (Yellow) Urine Clarity (Clear) Urine pH (5.0-8.0) pH Units Ur Specific [place] (1.010-1.025) Urine Protein (Neg-Trace) mg/dL Urine Glucose (UA) (Normal) mg/dL Urine Ketones (Negative) mg/dL Urine Blood (Negative) Urine Nitrite (Negative) Urine Bilirubin (Negative) Urine Urobilinogen (Normal) mg/dL Ur Leukocyte Esterase (Negative) 12/06/16 Range/Units 12:41 WBC (4.3-11.1) K/mcL RBC (3.82-4.97) M/mcL Hgb (11.5-15.4) g/dL Hct (35.3-44.9) % MCV (83.0-100.0) fL MCH (28.0-33.3) pg MCHC (31.6-35.5) g/dL RDW (11.5-14.5) % Plt Count (140-400) K/mcL MPV (9.4-12.4) fL Sodium (136-145) mEq/L Potassium (3.5-4.5) mEq/L Chloride (98-109) mEq/L Carbon Dioxide (19-29) mEq/L BUN (7-20) mg/dL Creatinine (0.57-1.11) mg/dL Est GFR ( Amer) (> 60) Est GFR (Non-Af Amer) (> 60) BUN/Creatinine Ratio (6-26) Glucose (70-99) mg/dL Calculated Osmolality (280-300) Lactic Acid (0.5-2.2) mmol/L Calcium (8.6-10.8) mg/dL Urine Color Yellow (Yellow) Urine Clarity Clear (Clear) Urine pH 6.0 (5.0-8.0) pH Units Ur Specific [place] 1.016 (1.010-1.025) Urine Protein Negative (Neg-Trace) mg/dL Urine Glucose (UA) 250 H (Normal) mg/dL Urine Ketones Negative (Negative) mg/dL Urine Blood Negative (Negative) Urine Nitrite Negative (Negative) Urine Bilirubin Negative (Negative) Urine Urobilinogen Normal (Normal) mg/dL Ur Leukocyte Esterase Negative (Negative) - Diagnostic Studies CT scan - head Additional comments: Head CT 12/06/16 12:04 IMPRESSION: Multifocal areas of decreased attenuation are probably in keeping with prior ischemia and chronic microvascular ischemic change; however, no comparative imaging is available, and if there are any focal deficits MRI would be more sensitive in the detection of acute CVA. D/ / Artemio Aldana / Artemio Aldana Interpreting Provider: Artemio Aldana Chest x-ray Additional comments: Chest X-Ray 12/06/16 12:05 IMPRESSION: No acute process. D/ / 12/06/2016 13:17:26 Roe Izaguirre MD / taran Interpreting Provider: Roe Izaguirre MD
[2016-12-06] MEDS ORDERED: 0.9 % Sodium Chloride 500 ML IVC ONE (17:27)
[2016-12-06] MEDS ORDERED: 0.9 % Sodium Chloride 500 ML ONE (17:44)
[2016-12-06] MEDS ORDERED: Ipratropium/Albuterol Neb 3 ML IH PRN (18:42)
[2016-12-06] MEDS: APIXABAN 5 MG TABLET PO SCH (19:41)
[2016-12-06] MEDS: Nicotine 14 MG PATCH.TD24 TD SCH (20:04)
[2016-12-06] MEDS ORDERED: NON-FORMULARY MEDICATION 1 EACH EACH (Fluticasone/Salmeterol [Advair 500-50 Diskus] 1 EACH IH SCH (21:00)
[2016-12-06] MEDS: Furosemide 20 MG TABLET PO SCH (22:41)
[2016-12-07] MEDS: Budesonide/Formoterol 160/4.5 MDI IH SCH ×3 (00:05→22:58)
[2016-12-07 04:52] LABS: Basophils % 0.2 %; Eosinophils # 0.1 K/mcL (0.0-0.6); Eosinophils % 0.8 %; Hemoglobin 10.5 g/dL (11.5-15.4); Immature Granulocytes % 0.9 % (0-4); Lymphocytes # 2.1 K/mcL (0.6-4.6); Lymphocytes % 21.4 %; Mean Corpuscular Hemoglobin 28.8 pg (28.0-33.3); Mean Corpuscular Volume 96.2 fL (83.0-100.0); Mean Platelet Volume 10.3 fL (9.4-12.4); Monocytes # 0.8 K/mcL (0.0-1.3); Monocytes % 7.8 %; Neutrophils # 6.7 K/mcL (1.6-8.9); Platelet Count 242 K/mcL (140-400); Red Blood Count 3.64 M/mcL (3.82-4.97); Red Cell Distribution Width 15.1 % (11.5-14.5); Segmented Neutrophils % 68.9 %
[2016-12-07 05:01] LABS: BUN/Creatinine Ratio 23 (6-26); Blood Urea Nitrogen 18 mg/dL (7-20); Carbon Dioxide 34 mEq/L (19-29); Chloride 106 mEq/L (98-109); Glucose 95 mg/dL (70-99); Osmolality,Calculated 302 (280-300); Potassium 3.8 mEq/L (3.5-4.5); Sodium 145 mEq/L (136-145); eGFR For African Americans > 60 (> 60); eGFR For Non-African Americans > 60 (> 60)
--- NOTE | 2016-12-07 06:28 | Electrocardiograph Report ---
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
[2016-12-07] MEDS: APIXABAN 5 MG TABLET PO SCH ×2 (08:35→21:07)
[2016-12-07] MEDS: Nicotine 14 MG PATCH.TD24 TD SCH (08:35)
[2016-12-07] MEDS: Furosemide 20 MG TABLET PO SCH ×2 (08:35→21:08)
[2016-12-07] MEDS: predniSONE 10 MG TABLET PO SCH (08:35)
[2016-12-07] MEDS ORDERED: Spironolactone 25 MG TABLET PO SCH (09:00)
--- NOTE | 2016-12-07 09:24 | Cardiology Consult Note ---
Date of Encounter: 12/07/16 Time of Encounter: 09:16 Assessment and Plan (1) Atrial fibrillation with RVR Current Visit: Yes Status: Chronic Recurrent A-Fib recently started on Tikosyn 250mcg BID at [facility] during hospitalization 11/21-11/26, underwent DCCV to SR at that time. Pt unsure when she went back into A-Fib, denies palpitations. Reviewed [facility] documentation. Since she never had rhythm control previously , they recommended rhythm control due to underlying cardiomyopathy. EF noted to be 40-45% in 07/2016 which had been stable, then decreased to 35% 11/14/16 and per [facility], EF there 20-25%. It was noted if unable to tolerate Tikosyn they would consider amiodarone or AV node ablation with upgrade to OYSTER GROWER-D. K 3.8. Check Mag and TSH. Anticoagulated on Eliquis, denies any missed doses in past 30 days. Currently on Cardizem gtt at 7.5mg/hr with HR 100s at bedside. 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 Switch Lopressor to Toprol XL and attempt to uptitrate. Tikosyn was stopped on admission. Will consult EP to determine if we continue with rhythm control strategy (increasing Tikosyn, DCCV) vs ablation with OYSTER GROWER-D upgrade vs rate control strategy. (2) Cardiomyopathy Current Visit: Yes Status: Chronic Known prior EF of 40-45% that had been stable since 2012. However, recently worsened. EF 11/14/16 EF 35%. Per [facility] documentation, thought to be 20-25%. Suspect tachycardia induced given her A-Fib RVR. [facility] 12/2015 Left main coronary artery: severe ostial stenosis of 70-75%. Left anterior descending coronary artery: Severe proximal stenosis of 95%. Left circumflex coronary artery: chronically occluded proximally. SVG to LAD: occluded proximally. SVG to RCA: Patent with no significant disease. The jump graft to PDA was occluded. The PDA has 75% stenosis. PCI/RONEL to mid PDA. Switch Lopressor to Toprol XL. Continue Lisinopril. Decrease Aldactone to 12.5mg daily to allow BP room for HR control. ICD in place. Qualifiers: Cardiomyopathy type: unspecified Qualified Code(s): I42.9 - Cardiomyopathy , unspecified (3) Chronic systolic CHF (congestive heart failure), NYHA class 2 Current Visit: Yes Status: Chronic As above, euvolemic on exam with no acute process on CXR. Recommend 2L fluid and Na restriction. (4) CAD (coronary artery disease) Current Visit: Yes Status: Chronic Hx of CABG and subsequent PCI/RONEL to mid PDA 12/2015. Pt denies chest pain. Continue ASA, Statin, BB. Qualifiers: Coronary Disease-Associated Artery/Lesion type: bypass graft [place] vs. transplanted heart: [place] heart Associated angina: without angina Qualified Code(s): I25.810 - Atherosclerosis of coronary artery bypass graft(s) without angina pectoris Discussion w patient/family: The assessment and plan as outlined above was discussed with the patient and/or family members who expressed understanding and agreement. All questions were answered. Thank you for involving us in the care of your patient. Please call with any questions. I will discuss all the above with Dr. Rodriguez and make changes as necessary. History of Present Illness Consult date: 12/07/16 Requesting physician: Fabienne Estrada Consult reason: A-Fib RVR Chief complaint: dyspnea, headache, earache History of present illness: Ms. Rodarte is a 71 year old female with PMH of COPD, systolic CHF, CMP, A-Fib on Eliquis, CAD with hx CABG and PCI, HLD, Pacemaker AICD, and JORGE who presented to [facility] yesterday with multiple complaints--dizziness/lightheadedness, earache/ pain, headache, dyspnea. She was found to be in A. fib with RVR. She denies palpitations. She has had multiple hospitalizations recently at [facility] for CHF and COPD exacerbations. She was most recently hospitalized 11/21-11/26 at [facility], at which time she was started on Tikosyn for rhythm control and successfully cardioverted to SR. She was discharged home on Tikosyn 250mcg BID, denies missing any doses, did not know she went back into A-Fib until noted in ED. Previously had been in A-Fib since device implant 03/2016. EF previously 40- 45%, known. EF mildly worsened to 35% 11/2016, then per [facility] documents, EF now 20-25%. [facility] 12/2015 with RONEL to mid PDA. Pt denies chest pain. Currently on cardizem gtt at 7.5mg/hr, HR 100s at bedside. She denies missing any eliquis doses in the past 30 days. Recent CV testing: Echo 11/14/16: LVEF 35%, appears globally hypokinetic. Moderately dilated LV, severely dilated left atrium, moderately dilated right atrium, mild-moderate TR , mild phtn. Echo 08/06/16 EF 40-45% with regional wall motion abnormalities. Mild RV hypokinesis, severely dilated left atrium, mild MR. [facility] 12/25/2015 Impressions: Left main coronary artery: severe ostial stenosis of 70-75% Left anterior descending coronary artery: Severe proximal stenosis of 95%. Left circumflex coronary artery: chronically occluded proximally SVG to LAD: occluded proximally SVG to RCA: Patent with no significant disease. The jump graft to PDA was occluded. The PDA has 75% stenosis. PCI/RONEL to mid PDA. Past Med Surg Social Fam HX - Past Medical History Medical history: atrial fibrillation, cardiomyopathy, CHF, COPD, coronary artery disease, GERD, hypertension, myocardial infarction Psychiatric history: anxiety, depression - Past Surgical History Surgical History: angioplasty/stent, coronary bypass (CABG), hysterectomy, pacemaker/AICD - Social History Smoking Status: Current every day smoker Packs per day: .25 Smokeless Tobacco Status: No Alcohol use: none Drug use: none - Family History Father Adopted: No Family Member Ethnicity: Non- Living Status: Hx Family Cardiac Disorders: Yes Hx Family Respiratory Disorders: No Hx Family Cancer: No Hx Family GI Disorders: No Hx Family Endocrine Disorder: No Hx Family Neuromuscular Disorders: No Hx Family Neurologic Disorders: No Hx Family HEENT Disorders: No Hx Family Autoimmune Disorders: No Mother Living Status: Hx Family Endocrine Disorder: Yes (DM) Medications and Allergies Apixaban [Eliquis] 5 mg PO BID 08/04/16 [History] Clopidogrel [Plavix] 75 mg PO DAILY 08/04/16 [History] Ferrous Sulfate 325 mg PO DAILY 08/04/16 [History] Fluticasone/Salmeterol [Advair 500-50 Diskus] 1 each IH BID 08/04/16 [History] Pantoprazole Sodium [Protonix] 40 mg PO DAILY 08/04/16 [History] Pravastatin Sodium [Pravachol] 80 mg PO HS 08/04/16 [History] Sennosides/Docusate Sodium [Senna-S Tablet] 1 tab PO DAILY PRN 08/04/16 [History ] Trazodone HCl 100 mg PO HS 11/10/16 [History] Ipratropium/Albuterol Neb [Duoneb] 3 ml IH Q6HR PRN #30 11/13/16 [Rx] Furosemide [Lasix] 20 mg PO BID #60 tablet 11/18/16 [Rx] LORazepam [Ativan] 0.25 mg PO TID PRN #10 tablet 11/18/16 [Rx] Lisinopril [Zestril] 2.5 mg PO DAILY #30 tablet 11/18/16 [Rx] Metoprolol [Lopressor] 50 mg PO BID #60 tablet 11/18/16 [Rx] Spironolactone [Aldactone] 12.5 mg PO DAILY #30 tablet 11/18/16 [Rx] Oxygen 3 l NS AD 12/06/16 [History] Allergies bupropion [From Wellbutrin] Allergy (Verified 12/06/16 11:11) Swelling of Lip/Tongue/Throat Varenicline [From Chantix] Allergy (Verified 12/06/16 11:11) Swelling of Lip/Tongue/Throat Iodinated Contrast- Oral and IV Dye [Iodinated Contrast Media - Oral and] Adverse Reaction (Verified 11/10/16 15:03) See Comments patient unsure of what happens with this??? Sulfa (Sulfonamide Antibiotics) Adverse Reaction (Verified 10/06/16 20:40) Hives tape Adverse Reaction (Uncoded 08/04/16 12:35) Hives All Systems Review: A 10-system review of systems was performed and is negative for pertinent findings except as documented above in the HPI. - Constitutional Constitutional: fatigue, weakness - EENT Ears: right: ear pain - Cardiovascular Cardiovascular: as per HPI, dyspnea at rest, dyspnea on exertion - Respiratory Respiratory: dyspnea Physical Examination Vital Signs, Last 4 Hours Temp Pulse Resp BP Pulse Ox 12/07/16 08:00 92 12/07/16 07:39 98.2 F 91 17 127/80 92 12/07/16 06:00 96 119/95 12/07/16 05:45 112 127/77 12/07/16 05:30 81 125/87 Vital Signs Temp Pulse Resp BP Pulse Ox 12/07/16 08:00 92 12/07/16 07:39 98.2 F 91 17 127/80 92 12/07/16 06:00 96 119/95 12/07/16 05:45 112 127/77 12/07/16 05:30 81 125/87 12/07/16 05:15 115 130/108 12/07/16 05:00 103 111/81 12/07/16 04:50 98.6 F 113 20 116/72 93 12/07/16 00:42 98.9 F 88 16 117/69 90 12/06/16 21:00 98.0 F 118 19 119/89 95 12/06/16 18:09 16 105/90 12/06/16 17:42 113 18 96/71 96 12/06/16 17:24 114 18 77/54 96 12/06/16 17:15 137 18 101/59 94 12/06/16 11:11 98.1 F 99 20 122/79 98 Intake and Output 12/06/16 12/07/16 12/07/16 23:59 07:59 15:59 Intake Total 54 / 54 Balance 54 / 54 Intake: IV Fluids 54 / 54 Cardizem 125 MG In 54 / 54 Dextrose 5% 100 ML @ 10 MG/HR 10 mls/hr IVC . [id number] [facility] Rx#: [id number] General: Conversant, No Apparent Distress HEENT: Atraumatic, Normocephaly, Mucus Membranes Moist Neck: No JVD, Normal carotid pulses Cardiac: Other (irregularly irregular rhythm) Lungs: Normal Breath Sounds, No Wheeze, Rales, Rhonchi Neuro: Alert and responsive, No focal deficits noted Abdomen: Soft, Non-Tender Skin: No rashes noted on visualized skin Musculoskeletal: No Chest Wall Tenderness Extremities: No Clubbing, No Cyanosis, No Edema, Normal Pulses Results 12/07/16 03:59 12/07/16 03:59 Lab Results 12/07/16 12/07/16 03:59 03:59 WBC 9.7 Hgb 10.5 L Hct 35.0 L Plt Count 242 Sodium 145 Potassium 3.8 Chloride 106 Carbon Dioxide 34 H BUN 18 Creatinine 0.79 Glucose 95 Calcium 9.0 Short CBC 12/07/16 12/06/16 Range/Units 03:59 12:32 WBC 9.7 10.6 (4.3-11.1) K/mcL Hgb 10.5 L 11.0 L (11.5-15.4) g/dL Hct 35.0 L 36.0 (35.3-44.9) % Plt Count 242 272 (140-400) K/mcL Neutrophils # 6.7 (1.6-8.9) K/mcL BMP 12/07/16 12/06/16 Range/Units 03:59 12:32 Sodium 145 141 (136-145) mEq/L Potassium 3.8 4.2 (3.5-4.5) mEq/L Chloride 106 105 (98-109) mEq/L Carbon Dioxide 34 H 28 (19-29) mEq/L BUN 18 24 H (7-20) mg/dL Creatinine 0.79 1.00 (0.57-1.11) mg/dL Glucose 95 284 H (70-99) mg/dL Calcium 9.0 9.4 (8.6-10.8) mg/dL Urine 12/06/16 Range/Units 12:41 Urine Color Yellow (Yellow) Urine Clarity Clear (Clear) Urine pH 6.0 (5.0-8.0) pH Units Ur Specific [place] 1.016 (1.010-1.025) Urine Protein Negative (Neg-Trace) mg/dL Urine Glucose (UA) 250 H (Normal) mg/dL Impressions Head CT 12/06/16 12:04 IMPRESSION: Multifocal areas of decreased attenuation are probably in keeping with prior ischemia and chronic microvascular ischemic change; however, no comparative imaging is available, and if there are any focal deficits MRI would be more sensitive in the detection of acute CVA. D/ / Artemio Aldana / Artemio Aldana Interpreting Provider: Artemio Aldana Chest X-Ray 12/06/16 12:05 IMPRESSION: No acute process. D/ / 12/06/2016 13:17:26 Roe Izaguirre MD / taran Interpreting Provider: Roe Izaguirre MD Active Medications Acetaminophen (Tylenol) 650 mg PO Q6HR PRN PRN Reason: Mild Pain (1-3) Stop: 06/07/17 17:06 Albuterol/Ipratropium (Duoneb) 3 ml IH [id number] PRN PRN Reason: Shortness Of Breath/Wheezing Stop: 06/07/17 18:43 Apixaban (Eliquis) 5 mg PO BID [facility] Stop: 06/07/17 21:01 Last Admin: 12/07/16 08:35 Dose: 5 mg Budesonide/Formoterol Fumarate (Symbicort) 2 puff IH BIDR CARLOS PRN Reason: Protocol Stop: 06/07/17 22:01 Last Admin: 12/07/16 08:10 Dose: 2 puff Clopidogrel Bisulfate (Plavix) 75 mg PO DAILY [facility] Stop: 06/08/17 09:01 Last Admin: 12/07/16 08:35 Dose: 75 mg Diphenhydramine HCl (Benadryl) 25 mg PO HS PRN PRN Reason: Insomnia Stop: 06/07/17 18:44 Last Admin: 12/07/16 01:13 Dose: 25 mg Docusate Sodium (Colace) 100 mg PO BID PRN PRN Reason: Constipation Stop: 06/07/17 17:06 Dofetilide (Tikosyn) 0.25 mg PO BID [facility] Stop: 06/07/17 21:01 Last Admin: 12/07/16 08:35 Dose: 0.25 mg Ferrous Sulfate (Ferrous Sulfate) 325 mg PO DAILY [facility] Stop: 06/08/17 09:01 Last Admin: 12/07/16 08:35 Dose: 325 mg Furosemide (Lasix) 20 mg PO BID [facility] Stop: 06/07/17 21:01 Last Admin: 12/07/16 08:35 Dose: 20 mg Diltiazem HCl 125 mg/ Dextrose 125 mls @ 10 mls/hr IVC .[id number] CARLOS; 10 MG/HR PRN Reason: Protocol Stop: 06/07/17 17:01 Last Admin: 12/07/16 08:31 Dose: Not Given Lisinopril (Zestril) 2.5 mg PO Q24H CARLOS PRN Reason: Protocol Stop: 06/07/17 17:01 Last Admin: 12/06/16 19:41 Dose: 2.5 mg Lorazepam (Ativan) 0.25 mg PO TID PRN PRN Reason: Anxiety Stop: 06/07/17 17:10 Metoprolol Tartrate (Lopressor) 25 mg PO DAILY [facility] Stop: 06/08/17 09:01 Last Admin: 12/07/16 08:35 Dose: 25 mg Naloxone HCl (Narcan) 0.4 mg IVP Q2MIN PRN PRN Reason: Opioid Reversal Stop: 06/07/17 17:06 Nicotine (Nicoderm) 14 mg TD DAILY [facility] Stop: 06/07/17 17:46 Last Admin: 12/07/16 08:35 Dose: 14 mg Omeprazole (Prilosec) 20 mg PO 0630 CARLOS Stop: 06/08/17 06:31 Last Admin: 12/07/16 06:05 Dose: 20 mg Prednisone (Prednisone) 10 mg PO DAILY [facility] Stop: 06/08/17 09:01 Last Admin: 12/07/16 08:35 Dose: 10 mg Simvastatin (Zocor) 40 mg PO HS [facility] Stop: 06/07/17 21:01 Last Admin: 12/06/16 22:41 Dose: 40 mg Spironolactone (Aldactone) 25 mg PO DAILY [facility] Stop: 06/08/17 09:01 Last Admin: 12/07/16 08:35 Dose: 25 mg - Imaging and Cardiology Chest Xray: report reviewed Echo: report reviewed Cardiac cath: report reviewed - EKG Interpretation EKG results cardiology: personally reviewed (A-Fib RVR, rate 110, QRS 120, QTc 436ms.), other (12 hr tele AVG HR 95, A-Fib.) Consult Discharge Plan - Plan Referrals: Hal Monroy MD [Primary Care Provider] -
--- NOTE | 2016-12-07 09:26 | Electrophysiology Consult Note ---
Date of Encounter: 12/07/16 Time of Encounter: 09:22 Assessment and Plan (1) Atrial fibrillation with RVR Current Visit: Yes Status: Acute Per electrophysiology: Recurrent afib with RVR s/p cardioversion and tikosyn initiation 11/22/16 at [facility]. Minimal symptoms from afib. Reports chronic symptoms of fatigue and SOB unchanged since recent hospital stay. Admits to feeling heart race occasionally. Previously controlled on bb. Reports developing afib after CABG four years ago. Last ICD check completed in office showed afib over last six months. H/o chronic afib. Reports from [place] printed from [employer]. Noted recommendation if unable to tolerate Tikosyn they would consider amiodarone or AV node ablation with upgrade to FINNISH RUBBER-D. K 3.8. Check Mag and TSH. Anticoagulated on Eliquis, denies any missed doses in past 30 days. Currently on Cardizem gtt at 7.5mg/hr with HR 60-90 currently. Will avoid converting to oral cardizem in the setting of CMP. Lopressor switched to toprol XL by general cardiology. Discussed with Dr. Richie Rebolledo. Recommend discontinuing tikosyn and continuing rate control strategy. Increase toprol xl as needed. If unable to rate control she would be a candidate for AV node ablation and ICD upgrade. Discussion w patient/family: The assessment and plan as outlined above was discussed with the patient and/or family members who expressed understanding and agreement. All questions were answered. Thank you for involving us in the care of your patient. Please call with any questions. History of Present Illness Consult date: 12/07/16 Requesting physician: Yo Rodriguez Consult reason: atrial fibrillation Chief complaint: PMH significant for atrial fibrillation, ischemic cardiomyopathy, CAD, CHF History of present illness: Ms. Rodarte is a 71 year old female with a PMH significant for atrial fibrillation on eliquis, ischemic cardiomyopathy, ICD, CAD s/p CABG and previous PCI, CHF and COPD. She presented to the hospital with the c/o feeling off balance, lightheadedness, headache, and SOB for one month. She was found to have a clogged ear canal two days prior to admission. She was found to be in atrial fibrillation with RVR. Reported being seen at [facility] 11/22/16 for atrial fibrillation with RVR and COPD exacerbation. She was started on tikosyn and received successful DCCV during her stay. She was also discharged with home O2 for her COPD. She admits to occasional palpitations. C/o chronic fatigue. Denies chest pain. Previous cardiac testing: EF commented to be 20-25% in [place] record. No actual TTE report. TTE 10/2016: EF 35%, not all mack were well visualized, LV dysfunction appears to be globally hypokenetic. Moderately dilated LV. Atypical septal motion consistent with post operative status. Normal RV size and mildly reduced function. Severely dilated LA. Moderately dilated RA. Mild mitral regugitation. Mild to moderate tricuspid regugitation. Mild pulmonary hypertension. [facility] 12/25/2015: Left main coronary artery: severe ostial stenosis of 70-75% Left anterior descending coronary artery: Severe proximal stenosis of 95%. Left circumflex coronary artery: chronically occluded proximally SVG to LAD: occluded proximally SVG to RCA: Patent with no significant disease. The jump graft to PDA was occluded. The PDA has 75% Past Med Surg Social Fam HX - Past Medical History Attestation: Yes The following information was validated with the patient. Medical history: atrial fibrillation, cardiomyopathy, CHF, COPD, coronary artery disease, GERD, hypertension, myocardial infarction Psychiatric history: anxiety, depression - Past Surgical History Surgical History: angioplasty/stent, coronary bypass (CABG), hysterectomy, pacemaker/AICD - Social History Smoking Status: Current every day smoker Packs per day: .25 Smokeless Tobacco Status: No Alcohol use: none Drug use: none - Family History Father Adopted: No Family Member Ethnicity: Non- Living Status: Hx Family Cardiac Disorders: Yes Hx Family Respiratory Disorders: No Hx Family Cancer: No Hx Family GI Disorders: No Hx Family Endocrine Disorder: No Hx Family Neuromuscular Disorders: No Hx Family Neurologic Disorders: No Hx Family HEENT Disorders: No Hx Family Autoimmune Disorders: No Mother Living Status: Hx Family Endocrine Disorder: Yes (DM) Medications and Allergies Apixaban [Eliquis] 5 mg PO BID 08/04/16 [History] Clopidogrel [Plavix] 75 mg PO DAILY 08/04/16 [History] Ferrous Sulfate 325 mg PO DAILY 08/04/16 [History] Fluticasone/Salmeterol [Advair 500-50 Diskus] 1 each IH BID 08/04/16 [History] Pantoprazole Sodium [Protonix] 40 mg PO DAILY 08/04/16 [History] Pravastatin Sodium [Pravachol] 80 mg PO HS 08/04/16 [History] Sennosides/Docusate Sodium [Senna-S Tablet] 1 tab PO DAILY PRN 08/04/16 [History ] Trazodone HCl 100 mg PO HS 11/10/16 [History] Ipratropium/Albuterol Neb [Duoneb] 3 ml IH Q6HR PRN #30 11/13/16 [Rx] Furosemide [Lasix] 20 mg PO BID #60 tablet 11/18/16 [Rx] LORazepam [Ativan] 0.25 mg PO TID PRN #10 tablet 11/18/16 [Rx] Lisinopril [Zestril] 2.5 mg PO DAILY #30 tablet 11/18/16 [Rx] Metoprolol [Lopressor] 50 mg PO BID #60 tablet 11/18/16 [Rx] Spironolactone [Aldactone] 12.5 mg PO DAILY #30 tablet 11/18/16 [Rx] Oxygen 3 l NS AD 12/06/16 [History] Allergies bupropion [From Wellbutrin] Allergy (Verified 12/06/16 11:11) Swelling of Lip/Tongue/Throat Varenicline [From Chantix] Allergy (Verified 12/06/16 11:11) Swelling of Lip/Tongue/Throat Iodinated Contrast- Oral and IV Dye [Iodinated Contrast Media - Oral and] Adverse Reaction (Verified 11/10/16 15:03) See Comments patient unsure of what happens with this??? Sulfa (Sulfonamide Antibiotics) Adverse Reaction (Verified 10/06/16 20:40) Hives tape Adverse Reaction (Uncoded 08/04/16 12:35) Hives All Systems Review: A 10-system review of systems was performed and is negative for pertinent findings except as documented above in the HPI. Physical Examination Vital Signs, Last 4 Hours Temp Pulse Resp BP Pulse Ox 12/07/16 08:00 92 12/07/16 07:39 98.2 F 91 17 127/80 92 12/07/16 06:00 96 119/95 12/07/16 05:45 112 127/77 12/07/16 05:30 81 125/87 General: Conversant, No Apparent Distress, Other (Poor historian) HEENT: Atraumatic, Normocephaly, Mucus Membranes Moist Neck: No JVD, Normal carotid pulses Cardiac: Normal S1 and S2, Other (Irregularly irregular. ) Lungs: Other (Respirations easy. Expiratory wheezes through out. SPO2 94-98% on RA. ) Neuro: Alert and responsive, No focal deficits noted Abdomen: Soft, Non-Tender Skin: No rashes noted on visualized skin Musculoskeletal: No Chest Wall Tenderness Extremities: No Clubbing, No Cyanosis, No Edema, Normal Pulses Results 12/07/16 03:59 12/07/16 03:59 Lab Results 12/07/16 12/07/16 03:59 03:59 WBC 9.7 Hgb 10.5 L Hct 35.0 L Plt Count 242 Sodium 145 Potassium 3.8 Chloride 106 Carbon Dioxide 34 H BUN 18 Creatinine 0.79 Glucose 95 Calcium 9.0 - Imaging and Cardiology Echo: report reviewed Cardiac cath: report reviewed - EKG Interpretation EKG results cardiology: personally reviewed (ATrial fibrillation with RVR, HR 110, QTc 436.) Consult Discharge Plan - Plan Referrals: Hal Monroy MD [Primary Care Provider] -
[2016-12-07] MEDS: Metoprolol XL (24 HR) Succ 25 MG TAB.ER.24H PO SCH (10:43)
--- NOTE | 2016-12-07 11:35 | Neurology - Consult Note ---
Date of Encounter: 12/07/16 Time of Encounter: 11:26 Assessment and Plan (1) Confusion Current Visit: Yes Status: Acute Patient reportedly developed confusion and balance difficulty which subsequently resolved. SHe has no focal neurological deficits at this time. CT of head showed likely chronic prior stroke involving the left frontal region and other white matter areas this likely is chronic in nature. She is adequately treated with eliquis and plavix from stroke prevention perspective therefore not much to add in terms of pharmacological therapy. Will however, get carotid artery duplex study to assess carotid artery stenosis. Otherwise, continue medical and supportive care. Will re-evaluate the patient upon your request. History of Present Illness Chief complaint: confusion and balance difficulty HPI: Ms. Rodarte is a 71 year old female with PMH significant for atrial fibrillation on Eliquis and plavix, COPD, ischemic cardiomyoapathy who developed confusion and balance difficulty. Patient is able to provide some history of her recent symptoms and she tells me that her daughter called her family physician yesterday morning and she was advised to bring her to the hospital. Per medical history she apparently developed some confusion and balance difficulty therefore it was concerned that she may developed a stroke. She apparently also had some right ear infection and is being treated for infection. Today the headaches went away. CT of head showed multifocal areas of decreased attenuation probably n keeping with prior ischemia. Recommended MRI of brain but patient has pacemaker so can not get MRI. Patient denies history of prior stroke. She currently has no focal weakness, no speech difficulty, no balance difficulty and is able to walk with no difficulty. Past Med Surg Social Fam HX - Past Medical History Medical history: atrial fibrillation, cardiomyopathy, CHF, COPD, coronary artery disease, GERD, hypertension, myocardial infarction Psychiatric history: anxiety, depression - Past Surgical History Surgical History: angioplasty/stent, coronary bypass (CABG), hysterectomy, pacemaker/AICD - Social History Smoking Status: Current every day smoker Packs per day: .25 Smokeless Tobacco Status: No Alcohol use: none Drug use: none - Family History Father Adopted: No Family Member Ethnicity: Non- Living Status: Hx Family Cardiac Disorders: Yes Hx Family Respiratory Disorders: No Hx Family Cancer: No Hx Family GI Disorders: No Hx Family Endocrine Disorder: No Hx Family Neuromuscular Disorders: No Hx Family Neurologic Disorders: No Hx Family HEENT Disorders: No Hx Family Autoimmune Disorders: No Mother Living Status: Hx Family Endocrine Disorder: Yes (DM) Medications and Allergies Apixaban [Eliquis] 5 mg PO BID 08/04/16 [History] Clopidogrel [Plavix] 75 mg PO DAILY 08/04/16 [History] Ferrous Sulfate 325 mg PO DAILY 08/04/16 [History] Fluticasone/Salmeterol [Advair 500-50 Diskus] 1 each IH BID 08/04/16 [History] Pantoprazole Sodium [Protonix] 40 mg PO DAILY 08/04/16 [History] Pravastatin Sodium [Pravachol] 80 mg PO HS 08/04/16 [History] Sennosides/Docusate Sodium [Senna-S Tablet] 1 tab PO DAILY PRN 08/04/16 [History ] Trazodone HCl 100 mg PO HS 11/10/16 [History] Ipratropium/Albuterol Neb [Duoneb] 3 ml IH Q6HR PRN #30 11/13/16 [Rx] Furosemide [Lasix] 20 mg PO BID #60 tablet 11/18/16 [Rx] LORazepam [Ativan] 0.25 mg PO TID PRN #10 tablet 11/18/16 [Rx] Lisinopril [Zestril] 2.5 mg PO DAILY #30 tablet 11/18/16 [Rx] Metoprolol [Lopressor] 50 mg PO BID #60 tablet 11/18/16 [Rx] Spironolactone [Aldactone] 12.5 mg PO DAILY #30 tablet 11/18/16 [Rx] Oxygen 3 l NS AD 12/06/16 [History] Allergies bupropion [From Wellbutrin] Allergy (Verified 12/06/16 11:11) Swelling of Lip/Tongue/Throat Varenicline [From Chantix] Allergy (Verified 12/06/16 11:11) Swelling of Lip/Tongue/Throat Iodinated Contrast- Oral and IV Dye [Iodinated Contrast Media - Oral and] Adverse Reaction (Verified 11/10/16 15:03) See Comments patient unsure of what happens with this??? Sulfa (Sulfonamide Antibiotics) Adverse Reaction (Verified 10/06/16 20:40) Hives tape Adverse Reaction (Uncoded 08/04/16 12:35) Hives All Systems: A 10-system review of systems was performed and is negative for pertinent findings except as documented above in the HPI. Physical Examination - Vital Signs Vital Signs: Initial Vital Signs Temp Pulse Resp BP Pulse Ox 98.1 F 99 20 122/79 98 12/06/16 11:11 12/06/16 11:11 12/06/16 11:11 12/06/16 11:11 12/06/16 11:11 - Constitutional General appearance: comfortable - Neurologic Sensorimotor examination: other (Grossly intact) Detailed motor examination: grossly full strength in all extremities Motor examination - right side: 5/5: deltoids, biceps, triceps, wrist flexion, wrist extension, leather stitcher, hip flexors, tibialis Anterior, quadriceps, toe extension (EHL), plantarflexion Motor examination - left side: 5/5: deltoids, biceps, triceps, wrist flexion, wrist extension, hip flexors, leather stitcher, quadriceps, tibialis Anterior, toe extension (EHL), plantarflexion Detailed sensory examination: other (Grossly intact) Posture: other (None) Reflex and gait examination: normal gait Reflexes: Biceps: 1+, Triceps: 1+, Brachioradialis: 1+, Patella: 1+, Achilles: 1 + Mental Status Examination: awake, alert, oriented to person, oriented to place, oriented to time, follows commands appropriately, answers questions appropriately, no agnosia, no aphasia, no aproxia Cranial nerve examination: PERRL, EOMI, visual steel intact, corneal reflexes brisk symmetrically, sensory to face intact, mastication intact, no facial asymmetry is present, no dysarthria, hearing is intact symmetrically, soft palate elevates bilaterally upon phonation, gag reflex intact, flexes SCM and trapezius muscles symmetrically with full power, tongue protrudes midline, no atrophy or facial fasiculations present Results - Laboratory Findings CBC and BMP: 12/07/16 03:59 12/07/16 03:59 Abnormal lab findings: Abnormal lab results RBC 3.64 M/mcL (3.82-4.97) L 12/07/16 03:59 Hgb 10.5 g/dL (11.5-15.4) L 12/07/16 03:59 Hct 35.0 % (35.3-44.9) L 12/07/16 03:59 MCHC 30.0 g/dL (31.6-35.5) L 12/07/16 03:59 RDW 15.1 % (11.5-14.5) H 12/07/16 03:59 Carbon Dioxide 34 mEq/L (19-29) H 12/07/16 03:59 POC Glucose 173 (58-89) H 12/06/16 18:52 Calculated Osmolality 302 (280-300) H 12/07/16 03:59 Lactic Acid 2.9 mmol/L (0.5-2.2) H 12/06/16 12:32 Urine Glucose (UA) 250 mg/dL (Normal) H 12/06/16 12:41 Consult Discharge Plan - Plan Referrals: Hal Monroy MD [Primary Care Provider] -
[2016-12-07] MEDS ORDERED: traZODone 50 MG TABLET PO PRN (12:27)
[2016-12-07] MEDS ORDERED: Acetaminophen 325 MG TABLET PO PRN (12:56)
[2016-12-07] MEDS ORDERED: Sennosides/Docusate Sodium TABLET PO PRN (13:03)
--- NOTE | 2016-12-07 13:10 | Internal Med Progress Note ---
Date of Encounter: 12/07/16 Time of Encounter: 10:00 - Assessment and plan (1) Hypertension Current Visit: Yes Status: Chronic Assessment and plan: Continue home medications. BP is stable. Qualifiers: Hypertension type: essential hypertension Qualified Code(s): I10 - Essential (primary) hypertension (2) Nicotine dependence Current Visit: Yes Status: Chronic Assessment and plan: On nicotine patch Qualifiers: Nicotine product type: cigarettes Substance use status: other nicotine- induced disorder Qualified Code(s): F17.218 - Nicotine dependence, cigarettes , with other nicotine-induced disorders (3) DVT prophylaxis Current Visit: Yes Status: Acute Assessment and plan: Patient is taking Eliquis. (4) CAD (coronary artery disease) Current Visit: Yes Status: Chronic Assessment and plan: S/P CABG. Continue Plavix, statin, beta patti Qualifiers: Coronary Disease-Associated Artery/Lesion type: bypass graft [place] vs. transplanted heart: [place] heart Associated angina: without angina Qualified Code(s): I25.810 - Atherosclerosis of coronary artery bypass graft(s) without angina pectoris (5) Atrial fibrillation with RVR Current Visit: Yes Status: Acute Assessment and plan: Right now heart rate is controlled. Cardizem drip has been discontinued. Patient was placed on by mouth metoprolol. Not convert to sinus rhythm. - Cardiology consult and EP cardiology consul appreciated. Consider rate instead rhythm control at this point. - Continue Eliquis for anticoagulation. (6) JORGE (obstructive sleep apnea) Current Visit: Yes Status: Acute Assessment and plan: Continue CPAP at night (7) COPD (chronic obstructive pulmonary disease) Current Visit: Yes Status: Chronic Assessment and plan: No signs of exacerbation. Continue home medications. Qualifiers: COPD type: unspecified COPD Qualified Code(s): J44.9 - Chronic obstructive pulmonary disease, unspecified (8) Chronic systolic CHF (congestive heart failure), NYHA class 2 Current Visit: Yes Status: Acute Assessment and plan: Patient has systolic CHF with EF 35%. On beta patti and JAKE inhibitor. Has AICD placed. (9) Confusion Current Visit: Yes Status: Acute Assessment and plan: Resolved. Neurology consult appreciated. We will check duplex carotid. - Time Spent With Patient 25 - 35 minutes - Subjective Interval history: Patient is a 71-year-old female admitted for A Fib with RVR. Possible medical history is significant for A. fib, COPD, hypertension, CHF, JORGE, CAD s/p CABG. Patient was seen and examined. Complaint tired. Denies chest pain or shortness of breath. I examined the patient's gait with neurologist, seems the patient has age appreciated gait. Vital signs stable. Heart rate is now controlled now. Cardizem drip has been switched to by mouth metoprolol per cardiology. - Constitutional Vitals: Temp Pulse Resp BP Pulse Ox 98.2 F 91 17 127/80 92 12/07/16 07:39 12/07/16 07:39 12/07/16 07:39 12/07/16 07:39 12/07/16 08:00 General appearance: Present: A&O X 3, pleasant, no acute distress - Head Head exam: Present: atraumatic, normocephalic - Eye Eye exam: Present: PERRL, conjuntiva pink, sclera anicteric Pupils: Present: PERRL - Neck Neck exam general surgery: Present: supple, trachea midline. Absent: lymphadenopathy - Respiratory Respiratory exam: Present: CTAB. Absent: accessory muscle use, rales, rhonchi, wheezes - Cardiovascular Cardiovascular exam: Present: irregular rhythm, +S1, +S2. Absent: diastolic murmur, gallop, rubs, systolic murmur - GI/Abdominal GI/Abdominal exam: Present: normal bowel sounds, soft, no peritoneal signs. Absent: distended, tenderness - Extremities Exam Extremities exam: Present: warm, radial pulses palpable and symetrical. Absent : calf tenderness, cyanotic, pedal edema - Neurological Exam Neurological exam: Present: CN II-XII intact, oriented X3, no focal deficits. Absent: pronater drift, facial droop, speech deficit - Skin Skin exam: Present: dry, intact Internal Medicine: Result - Labs CBC & Chem 7: 12/07/16 03:59 12/07/16 03:59 Labs: Short CBC 12/07/16 Range/Units 03:59 WBC 9.7 (4.3-11.1) K/mcL Hgb 10.5 L (11.5-15.4) g/dL Hct 35.0 L (35.3-44.9) % Plt Count 242 (140-400) K/mcL Neutrophils # 6.7 (1.6-8.9) K/mcL BMP 12/07/16 03:59 Sodium 145 Potassium 3.8 Chloride 106 Carbon Dioxide 34 H BUN 18 Creatinine 0.79 Glucose 95 Calcium 9.0 Consult Discharge Plan - Plan Referrals: Hal Monroy MD [Primary Care Provider] -
[2016-12-07] MEDS ORDERED: *HR* Dextrose 50 % in Water (Syg) 50 ML SYRINGE IVP PRN (16:07)
[2016-12-07] MEDS ORDERED: D5% in Water 1,000 ML IVC PRN (16:07)
[2016-12-07] MEDS ORDERED: Dextrose Gel 15 GM PO PRN ×2 (16:07)
[2016-12-07] MEDS ORDERED: Sennosides 8.6 MG TABLET PO PRN (16:09)
[2016-12-07] MEDS: Insulin LISPRO 300 UNITS/3 ML VIAL SQ SCH (18:43)
[2016-12-07] MEDS ORDERED: traZODone 50 MG TABLET PO SCH (21:00)
[2016-12-07] MEDS: Ipratropium/Albuterol Neb 3 ML IH SCH (22:57)
[2016-12-08] MEDS: Ipratropium/Albuterol Neb 3 ML IH SCH ×4 (04:46→22:21)
[2016-12-08 05:50] LABS: Basophils % 0.2 %; Eosinophils # 0.1 K/mcL (0.0-0.6); Eosinophils % 0.7 %; Hematocrit 32.2 % (35.3-44.9); Hemoglobin 10.3 g/dL (11.5-15.4); Immature Granulocytes % 0.9 % (0-4); Mean Corpuscular Hemoglobin 30.4 pg (28.0-33.3); Mean Platelet Volume 10.6 fL (9.4-12.4); Monocytes # 0.8 K/mcL (0.0-1.3); Monocytes % 8.1 %; Neutrophils # 6.5 K/mcL (1.6-8.9); Platelet Count 228 K/mcL (140-400); Red Blood Count 3.39 M/mcL (3.82-4.97); Red Cell Distribution Width 14.8 % (11.5-14.5); Segmented Neutrophils % 69.1 %
[2016-12-08 05:57] LABS: BUN/Creatinine Ratio 26 (6-26); Blood Urea Nitrogen 21 mg/dL (7-20); Calcium 8.7 mg/dL (8.6-10.8); Carbon Dioxide 30 mEq/L (19-29); Chloride 106 mEq/L (98-109); Glucose 104 mg/dL (70-99); Osmolality,Calculated 295 (280-300); Potassium 3.9 mEq/L (3.5-4.5); Sodium 141 mEq/L (136-145); eGFR For African Americans > 60 (> 60); eGFR For Non-African Americans > 60 (> 60)
[2016-12-08] MEDS: Insulin LISPRO 300 UNITS/3 ML VIAL SQ SCH ×5 (06:08→20:09)
[2016-12-08 06:19] LABS: Thyroid Stimulating Hormone 1.257 mcIU/mL (0.350-4.840)
[2016-12-08] MEDS: Furosemide 20 MG TABLET PO SCH ×2 (08:49→20:08)
[2016-12-08] MEDS: Spironolactone 25 MG TABLET PO SCH (08:49)
[2016-12-08] MEDS: predniSONE 10 MG TABLET PO SCH (08:49)
[2016-12-08] MEDS: APIXABAN 5 MG TABLET PO SCH ×2 (08:49→20:09)
[2016-12-08] MEDS: Metoprolol XL (24 HR) Succ 25 MG TAB.ER.24H PO SCH (08:49)
[2016-12-08] MEDS: Nicotine 14 MG PATCH.TD24 TD SCH (08:50)
[2016-12-08] MEDS ORDERED: *HR* Digoxin 0.5 MG/2 ML AMPUL IVP ONE (09:05)
--- NOTE | 2016-12-08 09:27 | Cardiology Progress Note ---
Date of Encounter: 12/08/16 Time of Encounter: 09:24 Assessment and Plan (1) Atrial fibrillation with RVR Current Visit: Yes Status: Acute Recurrent afib with RVR s/p cardioversion and tikosyn initiation 11/22/16 at [facility]. 12 hr tele AVG HR 99 A-Fib, but currently at bedside HR 110s-140s. Minimal symptoms from afib. Reports chronic symptoms of fatigue and SOB unchanged since recent hospital stay. Admits to feeling heart race occasionally. Previously controlled on bb. Anticoagulated on Eliquis, denies any missed doses in past 30 days. Seen by EP yesterday, recommended discontinuing tikosyn and continuing rate control strategy. Increase toprol xl as needed. If unable to rate control she would be a candidate for AV node ablation and ICD upgrade. Pt is on Toprol XL 25mg daily, not yet given this AM. Hypotensive with BP 90s systolic. Unable to uptitatrate BB. Will load with IV Digoxin--0.5mg x 1 then 0.25mg x 2 doses [id number]. Start PO 125mcg Digoxin tomorrow AM. If unable to rate control on Digoxin, will need to consider Amiodarone. Per [place], EF estimated to be 20-25%. Echo here 11/2016 EF 35%, previously 40 -45% since 2012. Last ischemic evaluation 12/2015 at outside facility where she received RONEL to PDA. (2) Cardiomyopathy Current Visit: Yes Status: Acute Known prior EF of 40-45% that had been stable since 2012. However, recently worsened. EF 11/14/16 EF 35%. Per [place] documentation, thought to be 20-25%. Suspect tachycardia induced given her A-Fib RVR. [facility] 12/2015 Left main coronary artery: severe ostial stenosis of 70-75%. Left anterior descending coronary artery: Severe proximal stenosis of 95%. Left circumflex coronary artery: chronically occluded proximally. SVG to LAD: occluded proximally. SVG to RCA: Patent with no significant disease. The jump graft to PDA was occluded. The PDA has 75% stenosis. PCI/RONEL to mid PDA. Switched Lopressor to Toprol XL yesterday. Continue Lisinopril. Decrease Aldactone to 12.5mg daily to allow BP room for HR control. ICD in place. Qualifiers: Cardiomyopathy type: unspecified Qualified Code(s): I42.9 - Cardiomyopathy , unspecified (3) Chronic systolic CHF (congestive heart failure), NYHA class 2 Current Visit: Yes Status: Acute As above, euvolemic on exam with no acute process on CXR. Recommend 2L fluid and Na restriction. (4) CAD (coronary artery disease) Current Visit: Yes Status: Chronic Hx of CABG and subsequent PCI/RONEL to mid [facility] 12/2015. Pt denies chest pain. Continue ASA, Statin, BB. Qualifiers: Coronary Disease-Associated Artery/Lesion type: bypass graft [place] vs. transplanted heart: [place] heart Associated angina: without angina Qualified Code(s): I25.810 - Atherosclerosis of coronary artery bypass graft(s) without angina pectoris Discussion w patient/family: The assessment and plan as outlined above was discussed with the patient and/or family members who expressed understanding and agreement. All questions were answered. Thank you for involving us in the care of your patient. Please call with any questions. I will discuss all the above with Dr. Rodriguez and make changes as necessary. Subjective Principal diagnosis: A-Fib RVR Interval history: Pt reports overall feeling better today, dyspnea improved. 12 hr tele AVG HR 99. At bedside, current HR 110s-140s. Pt denies palpitations or chest pain. Objective Vital Signs, Last 4 Hours Temp Pulse Resp BP Pulse Ox 12/08/16 08:02 98.6 F 110 16 95/64 100 Vital Signs Temp Pulse Resp BP Pulse Ox 12/08/16 08:02 98.6 F 110 16 95/64 100 12/08/16 04:46 16 103 12/08/16 04:36 98.3 F 104 15 99/84 100 12/07/16 22:57 16 99 12/07/16 21:07 99 12/07/16 17:44 18 95 12/07/16 16:00 98.2 F 86 15 92/56 93 Intake and Output 12/07/16 12/08/16 12/08/16 23:59 07:59 15:59 Intake Total 120 / 120 Output Total 100 / 100 Balance 20 / 20 Intake: Oral 120 / 120 Output: Urine 100 / 100 Other: Meal Breakfast Percent of Meal Consumed 100% Weight 71.9 kg Blood Glucose* 116 105 Patient Weight 12/08/16 23:59 Weight 71.9 kg General: Conversant, No Apparent Distress HEENT: Atraumatic, Normocephaly, Mucus Membranes Moist Neck: No JVD, Normal carotid pulses Cardiac: Other (irregularly irregular rhythm) Lungs: Normal Breath Sounds, No Wheeze, Rales, Rhonchi Neuro: Alert and responsive, No focal deficits noted Abdomen: Soft, Non-Tender Skin: No rashes noted on visualized skin Musculoskeletal: No Chest Wall Tenderness Extremities: No Clubbing, No Cyanosis, No Edema, Normal Pulses Results 12/08/16 05:09 12/08/16 05:09 Lab Results 12/08/16 12/08/16 05:09 05:09 WBC 9.4 Hgb 10.3 L Hct 32.2 L Plt Count 228 Sodium 141 Potassium 3.9 Chloride 106 Carbon Dioxide 30 H BUN 21 H Creatinine 0.80 Glucose 104 H Calcium 8.7 Magnesium 2.0 TSH 1.257 Short CBC 12/08/16 Range/Units 05:09 WBC 9.4 (4.3-11.1) K/mcL Hgb 10.3 L (11.5-15.4) g/dL Hct 32.2 L (35.3-44.9) % Plt Count 228 (140-400) K/mcL Neutrophils # 6.5 (1.6-8.9) K/mcL BMP 12/08/16 Range/Units 05:09 Sodium 141 (136-145) mEq/L Potassium 3.9 (3.5-4.5) mEq/L Chloride 106 (98-109) mEq/L Carbon Dioxide 30 H (19-29) mEq/L BUN 21 H (7-20) mg/dL Creatinine 0.80 (0.57-1.11) mg/dL Glucose 104 H (70-99) mg/dL Calcium 8.7 (8.6-10.8) mg/dL Impressions Chest X-Ray 12/06/16 12:05 IMPRESSION: No acute process. D/ / 12/06/2016 13:17:26 Roe Izaguirre MD / taran Interpreting Provider: Roe Izaguirre MD Active Medications Acetaminophen (Tylenol) 1,000 mg PO HS [facility] Stop: 06/08/17 21:01 Last Admin: 12/07/16 21:07 Dose: 1,000 mg Albuterol/Ipratropium (Duoneb) 3 ml IH [id number] [facility] Stop: 06/08/17 22:01 Last Admin: 12/08/16 04:46 Dose: 3 ml Apixaban (Eliquis) 5 mg PO BID [facility] Stop: 06/07/17 21:01 Last Admin: 12/08/16 08:49 Dose: 5 mg Budesonide/Formoterol Fumarate (Symbicort) 2 puff IH BIDR [facility] PRN Reason: Protocol Stop: 06/07/17 22:01 Last Admin: 12/07/16 22:58 Dose: 2 puff Clopidogrel Bisulfate (Plavix) 75 mg PO DAILY [facility] Stop: 06/08/17 09:01 Last Admin: 12/08/16 08:49 Dose: 75 mg Dextrose/Water (Dextrose 50% (Syg)) 25 ml IVP AD PRN PRN Reason: Hypoglycemia Stop: 06/08/17 16:08 Digoxin (Lanoxin) 0.25 mg IVP Q6H [facility] Stop: 12/08/16 21:01 Digoxin (Lanoxin) 0.125 mg PO DAILY [facility] Stop: 06/10/17 09:01 Diphenhydramine HCl (Benadryl) 50 mg PO HS [facility] Stop: 06/08/17 21:01 Last Admin: 12/07/16 21:07 Dose: 50 mg Ferrous Sulfate (Ferrous Sulfate) 325 mg PO DAILY [facility] Stop: 06/08/17 09:01 Last Admin: 12/08/16 08:49 Dose: 325 mg Furosemide (Lasix) 20 mg PO BID [facility] Stop: 06/07/17 21:01 Last Admin: 12/08/16 08:49 Dose: Not Given Glucagon (Glucagen) 1 mg IM ONCE PRN PRN Reason: Hypoglycemia Stop: 06/08/17 16:08 Glucose (Gluctose) 15 gm PO ONCE PRN PRN Reason: Hypoglycemia Stop: 06/08/17 16:08 Glucose (Gluctose) 30 gm PO ONCE PRN PRN Reason: Hypoglycemia Stop: 06/08/17 16:08 Dextrose (Dextrose 5%) 1,000 mls @ 100 mls/hr IVC .Q10H PRN PRN Reason: HYPOGLYCEMIA Stop: 06/08/17 16:08 Insulin Human Lispro (Humalog) 0 units SQ HS CARLOS PRN Reason: Protocol Stop: 06/08/17 21:01 Last Admin: 12/08/16 06:08 Dose: Not Given Insulin Human Lispro (Humalog) 0 units SQ TIDAC CARLOS PRN Reason: Protocol Stop: 06/08/17 16:31 Last Admin: 12/08/16 08:31 Dose: Not Given Lisinopril (Zestril) 2.5 mg PO Q24H CARLOS PRN Reason: Protocol Stop: 06/07/17 17:01 Last Admin: 12/07/16 18:03 Dose: Not Given Lorazepam (Ativan) 0.25 mg PO TID PRN PRN Reason: Anxiety Stop: 06/07/17 17:10 Metoprolol Succinate (Toprol Xl) 25 mg PO DAILY [facility] Stop: 06/08/17 10:01 Last Admin: 12/08/16 08:49 Dose: 25 mg Naloxone HCl (Narcan) 0.4 mg IVP Q2MIN PRN PRN Reason: Opioid Reversal Stop: 06/07/17 17:06 Nicotine (Nicoderm) 14 mg TD DAILY [facility] Stop: 06/07/17 17:46 Last Admin: 12/08/16 08:50 Dose: 14 mg Omeprazole (Prilosec) 20 mg PO 0630 [facility] Stop: 06/08/17 06:31 Last Admin: 12/08/16 06:03 Dose: 20 mg Prednisone (Prednisone) 10 mg PO DAILY [facility] Stop: 06/08/17 09:01 Last Admin: 12/08/16 08:49 Dose: 10 mg Senna (Senna) 8.6 mg PO DAILY PRN PRN Reason: Constipation Stop: 06/09/17 09:01 Simvastatin (Zocor) 40 mg PO HS [facility] Stop: 06/07/17 21:01 Last Admin: 12/07/16 21:07 Dose: 40 mg Spironolactone (Aldactone) 12.5 mg PO DAILY [facility] Stop: 06/09/17 09:01 Last Admin: 12/08/16 08:49 Dose: Not Given - EKG Interpretation EKG results cardiology: other (12 hr tele AVG HR 99, A-Fib) - VTE Documentation of Mechanical Device: Graduated compression elastic hosiery Consult Discharge Plan - Plan Referrals: Hal Monroy MD [Primary Care Provider] -
[2016-12-08] MEDS: Budesonide/Formoterol 160/4.5 MDI IH SCH ×2 (10:56→22:21)
--- NOTE | 2016-12-08 12:51 | Carotid Imaging Report ---
Carotid Duplex Patient Name:Juan Rodarte Order Number:[id number] Procedure Date:12/07/2016 Date:1945ge:71 yrs Gender:Female Lt BP:126 / 82 mmHg Rt.BP:127 / 80 mmHgHeart Rate: Location:[facility] Room #: [id number] Sweater Operator:Yvan Huitron Referring MD:Andrés Mota MD upholstery parts sorter:None Reading MD:Keanu Chase MD , FACS Primary Indications:Dizziness Risk Factors Yes/No Hypertension Yes Hypercholesterolemia Yes Hx of CVA Yes Impressions: Findings: Right carotid system has nonstenotic plaque. Findings: Left proximal ICA is essentially normal. Findings Carotid Duplex: Right: There is nonstenotic plaque in the right bifurcation. There is irregular homogeneous plaque. There is nonstenotic plaque in the right proximal internal carotid artery. There is smooth homogeneous plaque. Left: There is nonstenotic plaque in the left bifurcation. There is smooth homogeneous plaque. Prior Study: No prior study available for comparison. Carotid Results Right PSV EDV Assessment Proximal CCA 122 28 Normal Mid CCA 128 23 Normal Distal CCA 136 23 Normal Bifurcation 97 24 Non Stenotic Plaque Proximal ICA 85 16 Non Stenotic Plaque Mid ICA 93 27 Normal Distal ICA 72 23 Normal ECA 75 5 Normal Vertebral Artery 28 13 Antegrade Flow Left PSV EDV Assessment Proximal CCA 92 27 Normal Mid CCA 125 32 Normal Distal CCA 100 15 Normal Bifurcation 93 16 Non Stenotic Plaque Proximal ICA 80 22 Normal Mid ICA 48 17 Normal Distal ICA 40 14 Normal ECA 127 14 Normal Vertebral Artery 34 15 Antegrade Flow Ratio's Right ICA/CCA Ratio: 0.73 ICA/CCA Values: 93/128 Left ICA/CCA Ratio: 0.80 ICA/CCA Values: 80/100 Updated by Keanu Chase MD, FACS on 12/08/2016 12:47:08 PM Keanu Chase MD electronically signed on 12/08/2016 12:47:24 PM with status of Final
[2016-12-08] MEDS: *HR* Digoxin 0.5 MG/2 ML AMPUL IVP SCH ×2 (16:04→22:38)
--- NOTE | 2016-12-08 17:48 | Internal Med Progress Note ---
Date of Encounter: 12/08/16 Time of Encounter: 10:00 - Assessment and plan (1) Hypertension Current Visit: Yes Status: Chronic Assessment and plan: Continue home medications. BP is stable. Qualifiers: Hypertension type: essential hypertension Qualified Code(s): I10 - Essential (primary) hypertension (2) Nicotine dependence Current Visit: Yes Status: Chronic Assessment and plan: On nicotine patch Qualifiers: Nicotine product type: cigarettes Substance use status: other nicotine- induced disorder Qualified Code(s): F17.218 - Nicotine dependence, cigarettes , with other nicotine-induced disorders (3) DVT prophylaxis Current Visit: Yes Status: Acute Assessment and plan: Patient is taking Eliquis. (4) CAD (coronary artery disease) Current Visit: Yes Status: Chronic Assessment and plan: S/P CABG. Continue Plavix, statin, beta patti Qualifiers: Coronary Disease-Associated Artery/Lesion type: bypass graft [place] vs. transplanted heart: [place] heart Associated angina: without angina Qualified Code(s): I25.810 - Atherosclerosis of coronary artery bypass graft(s) without angina pectoris (5) Atrial fibrillation with RVR Current Visit: Yes Status: Acute Assessment and plan: Right now heart rate is not controlled with Hr 90-120, still A Fib. Digoxin added. keep po metoprolol. - Cardiology consult and EP cardiology consul appreciated. Consider rate instead rhythm control at this point. - Continue Eliquis for anticoagulation. (6) JORGE (obstructive sleep apnea) Current Visit: Yes Status: Acute Assessment and plan: Continue CPAP at night (7) COPD (chronic obstructive pulmonary disease) Current Visit: Yes Status: Chronic Assessment and plan: No signs of exacerbation. Continue home medications. Patient is on chronic steroid use with prednisone 10 mg by mouth daily Qualifiers: COPD type: unspecified COPD Qualified Code(s): J44.9 - Chronic obstructive pulmonary disease, unspecified (8) Chronic systolic CHF (congestive heart failure), NYHA class 2 Current Visit: Yes Status: Acute Assessment and plan: Patient has systolic CHF with EF 35%. On beta patti and JAKE inhibitor. Has AICD placed. (9) Confusion Current Visit: Yes Status: Acute Assessment and plan: Resolved. Neurology consult appreciated. duplex carotid done, results unremarkable. - Time Spent With Patient 25 - 35 minutes - Subjective Interval history: Patient is a 71-year-old female admitted for A Fib with RVR. Possible medical history is significant for A. fib, COPD, hypertension, CHF, JORGE, CAD s/p CABG. Patient was seen and examined. Complaint tired. Denies chest pain or shortness of breath. HR still high. Digoxin added per cardiology. Blood pressure is stable. Continue closely follow vitals and monitor patient - Constitutional Vitals: Temp Pulse Resp BP Pulse Ox 98.7 F 86 16 127/79 97 12/08/16 15:42 12/08/16 15:42 12/08/16 16:14 12/08/16 15:42 12/08/16 16:14 General appearance: Present: A&O X 3, pleasant, no acute distress, answers questions appropriately - Head Head exam: Present: atraumatic, normocephalic - Eye Eye exam: Present: PERRL, conjuntiva pink, sclera anicteric Pupils: Present: PERRL - Neck Neck exam general surgery: Present: supple, trachea midline. Absent: lymphadenopathy - Respiratory Respiratory exam: Present: CTAB. Absent: accessory muscle use, rales, rhonchi, wheezes - Cardiovascular Cardiovascular exam: Present: irregular rhythm, +S1, +S2. Absent: diastolic murmur, gallop, rubs, systolic murmur - GI/Abdominal GI/Abdominal exam: Present: normal bowel sounds, soft, no peritoneal signs. Absent: distended, tenderness - Extremities Exam Extremities exam: Present: warm, radial pulses palpable and symetrical. Absent : calf tenderness, cyanotic, pedal edema - Neurological Exam Neurological exam: Present: CN II-XII intact, oriented X3, no focal deficits. Absent: pronater drift, facial droop, speech deficit - Skin Skin exam: Present: dry, intact Internal Medicine: Result - Labs CBC & Chem 7: 12/08/16 05:09 12/08/16 05:09 Labs: Short CBC 12/08/16 Range/Units 05:09 WBC 9.4 (4.3-11.1) K/mcL Hgb 10.3 L (11.5-15.4) g/dL Hct 32.2 L (35.3-44.9) % Plt Count 228 (140-400) K/mcL Neutrophils # 6.5 (1.6-8.9) K/mcL BMP 12/08/16 05:09 Sodium 141 Potassium 3.9 Chloride 106 Carbon Dioxide 30 H BUN 21 H Creatinine 0.80 Glucose 104 H Calcium 8.7 - VTE Documentation of Mechanical Device: Graduated compression elastic hosiery Consult Discharge Plan - Plan Referrals: Hal Monroy MD [Primary Care Provider] -
[2016-12-09] MEDS: Ipratropium/Albuterol Neb 3 ML IH SCH ×4 (04:36→21:36)
[2016-12-09 06:23] LABS: Basophils % 0.4 %; Eosinophils # 0.1 K/mcL (0.0-0.6); Eosinophils % 0.7 %; Hematocrit 32.5 % (35.3-44.9); Hemoglobin 10.1 g/dL (11.5-15.4); Immature Granulocytes % 1.4 % (0-4); Immature Platelets 4.8 % (1.1-6.1); Lymphocytes # 1.9 K/mcL (0.6-4.6); Lymphocytes % 22.3 %; Mean Corpuscular HGB Conc 31.1 g/dL (31.6-35.5); Mean Corpuscular Volume 96.4 fL (83.0-100.0); Mean Platelet Volume 10.6 fL (9.4-12.4); Monocytes # 0.7 K/mcL (0.0-1.3); Neutrophils # 5.6 K/mcL (1.6-8.9); Platelet Count 234 K/mcL (140-400); Red Blood Count 3.37 M/mcL (3.82-4.97); Red Cell Distribution Width 14.6 % (11.5-14.5); Segmented Neutrophils % 67.2 %
[2016-12-09 06:36] LABS: BUN/Creatinine Ratio 26 (6-26); Blood Urea Nitrogen 21 mg/dL (7-20); Calcium 8.5 mg/dL (8.6-10.8); Carbon Dioxide 29 mEq/L (19-29); Chloride 106 mEq/L (98-109); Glucose 98 mg/dL (70-99); Magnesium 2.2 mg/dL (1.6-2.6); Osmolality,Calculated 297 (280-300); Potassium 3.9 mEq/L (3.5-4.5); eGFR For African Americans > 60 (> 60); eGFR For Non-African Americans > 60 (> 60)
[2016-12-09 06:41] LABS: Sodium 142 mEq/L (136-145)
[2016-12-09] MEDS: Spironolactone 25 MG TABLET PO SCH (08:01)
[2016-12-09] MEDS: *HR* Digoxin 0.125 MG TABLET PO SCH (08:01)
[2016-12-09] MEDS: Metoprolol XL (24 HR) Succ 25 MG TAB.ER.24H PO SCH (08:01)
[2016-12-09] MEDS: APIXABAN 5 MG TABLET PO SCH ×2 (08:01→20:39)
[2016-12-09] MEDS: Furosemide 20 MG TABLET PO SCH ×2 (08:02→20:39)
[2016-12-09] MEDS: Nicotine 14 MG PATCH.TD24 TD SCH (08:02)
[2016-12-09] MEDS: predniSONE 10 MG TABLET PO SCH (08:02)
[2016-12-09] MEDS: Insulin LISPRO 300 UNITS/3 ML VIAL SQ SCH ×4 (08:08→20:40)
[2016-12-09] MEDS: Budesonide/Formoterol 160/4.5 MDI IH SCH ×2 (09:59→21:36)
--- NOTE | 2016-12-09 11:31 | Cardiology Progress Note ---
Date of Encounter: 12/09/16 Time of Encounter: 11:45 Assessment and Plan (1) Atrial fibrillation with RVR Current Visit: Yes Status: Acute Per Cardiology: Persistent AF. Recently seen at [place] 11/22/16 - Tikosyn/cardioversion. Returned here in AF. Per [place], EF estimated to be 20-25%. Echo here 11/2016 EF 35%, previously 40-45% since 2012. Last ischemic evaluation 12/2015 at outside facility where she received RONEL to PDA. Will repeat echo as outpatient once rate controlled. Seen by EP, recommended discontinuing tikosyn and continuing rate control strategy. S/p Dig load-- now on Toprol XL 25mg PO daily and digoxin. 12 hr tele AVG HR 87 A-Fib, currently at bedside HR 80-90's. SBP stable 100's 110's. No amio warranted at this time. If unable to rate control on Digoxin, will need to consider Amiodarone. As outpatient, if unable to rate control she would be a candidate for AV node ablation and ICD upgrade. I had lengthy discussion with patient and daughter and they verbalized understanding and agreed with plan. Cardiology will sign off for now, re-consult as needed, has follow-up scheduled early next week. Recommend consider possible discharge tomorrow. (2) CAD (coronary artery disease) Current Visit: Yes Status: Chronic Per [facility]: Hx of CABG and subsequent PCI/RONEL to mid [facility] 12/2015. Pt denies chest pain. Continue ASA, Statin, BB. Qualifiers: Coronary Disease-Associated Artery/Lesion type: bypass graft [place] vs. transplanted heart: [place] heart Associated angina: without angina Qualified Code(s): I25.810 - Atherosclerosis of coronary artery bypass graft(s) without angina pectoris (3) Chronic anticoagulation Current Visit: Yes Status: Chronic Per Cardiology: Remains anticoagulated with Eliquis 5mg PO BID. denies any active bleeding or blood loss. Kidney function stable. Discussion w patient/family: The assessment and plan as outlined above was discussed with the patient and/or family members who expressed understanding and agreement. All questions were answered. Thank you for involving us in the care of your patient. Please call with any questions. Subjective Principal diagnosis: A-Fib RVR Interval history: Patient denies any chest pain or palpitations. Reports overall improvement in breathing. Denies any active bleeding or blood loss. Denies any new concerns today. Objective Vital Signs, Last 4 Hours Temp Pulse Resp BP Pulse Ox 12/09/16 10:02 16 100 12/09/16 07:32 97.8 F 86 16 113/74 100 General: Conversant, No Apparent Distress HEENT: Atraumatic, Normocephaly, Mucus Membranes Moist Neck: No JVD, Normal carotid pulses Cardiac: Normal S1 and S2, No Murmur, Other (Irregularly irregular) Lungs: Normal Breath Sounds, No Wheeze, Rales, Rhonchi Neuro: Alert and responsive, No focal deficits noted Abdomen: Soft, Non-Tender Skin: No rashes noted on visualized skin Musculoskeletal: No Chest Wall Tenderness Extremities: No Clubbing, No Cyanosis, No Edema, Normal Pulses Results 12/09/16 05:41 12/09/16 05:41 Lab Results Laboratory Tests 12/06/16 12/08/16 12/09/16 12:32 05:09 05:41 Hgb 11.0 L 10.1 L Hct 36.0 32.5 L Magnesium TSH 1.257 12/09/16 05:41 Hgb Hct Magnesium 2.2 TSH ITS Impressions Head CT 12/06/16 12:04 IMPRESSION: Multifocal areas of decreased attenuation are probably in keeping with prior ischemia and chronic microvascular ischemic change; however, no comparative imaging is available, and if there are any focal deficits MRI would be more sensitive in the detection of acute CVA. D/ / Artemio Aldana / Artemio Aldana Interpreting Provider: Artemio Aldana Chest X-Ray 12/06/16 12:05 IMPRESSION: No acute process. D/ / 12/06/2016 13:17:26 Roe Izaguirre MD / taran Interpreting Provider: Roe Izaguirre MD Intake & Output 12/06/16 12/07/16 12/08/16 12/09/16 23:59 23:59 23:59 23:59 Intake Total 607 / 607 240 / 240 240 / 240 Output Total 100 / 100 Balance 607 / 607 140 / 140 240 / 240 Weight 67.132 kg 67.132 kg 71.9 kg 72.4 kg Active Medications Acetaminophen (Tylenol) 1,000 mg PO HS [facility] Stop: 06/08/17 21:01 Last Admin: 12/08/16 20:09 Dose: 1,000 mg Albuterol/Ipratropium (Duoneb) 3 ml IH [id number] [facility] Stop: 06/08/17 22:01 Last Admin: 12/09/16 09:59 Dose: 3 ml Apixaban (Eliquis) 5 mg PO BID [facility] Stop: 06/07/17 21:01 Last Admin: 12/09/16 08:01 Dose: 5 mg Budesonide/Formoterol Fumarate (Symbicort) 2 puff IH BIDR [facility]LOS PRN Reason: Protocol Stop: 06/07/17 22:01 Last Admin: 12/09/16 09:59 Dose: 2 puff Clopidogrel Bisulfate (Plavix) 75 mg PO DAILY [facility] Stop: 06/08/17 09:01 Last Admin: 12/09/16 08:01 Dose: 75 mg Dextrose/Water (Dextrose 50% (Syg)) 25 ml IVP AD PRN PRN Reason: Hypoglycemia Stop: 06/08/17 16:08 Digoxin (Lanoxin) 0.125 mg PO DAILY [facility] Stop: 06/10/17 09:01 Last Admin: 12/09/16 08:01 Dose: 0.125 mg Diphenhydramine HCl (Benadryl) 50 mg PO HS [facility] Stop: 06/08/17 21:01 Last Admin: 12/08/16 20:09 Dose: 50 mg Ferrous Sulfate (Ferrous Sulfate) 325 mg PO DAILY [facility] Stop: 06/08/17 09:01 Last Admin: 12/09/16 08:02 Dose: 325 mg Furosemide (Lasix) 20 mg PO BID [facility] Stop: 06/07/17 21:01 Last Admin: 12/09/16 08:02 Dose: 20 mg Glucagon (Glucagen) 1 mg IM ONCE PRN PRN Reason: Hypoglycemia Stop: 06/08/17 16:08 Glucose (Gluctose) 15 gm PO ONCE PRN PRN Reason: Hypoglycemia Stop: 06/08/17 16:08 Glucose (Gluctose) 30 gm PO ONCE PRN PRN Reason: Hypoglycemia Stop: 06/08/17 16:08 Dextrose (Dextrose 5%) 1,000 mls @ 100 mls/hr IVC .Q10H PRN PRN Reason: HYPOGLYCEMIA Stop: 06/08/17 16:08 Insulin Human Lispro (Humalog) 0 units SQ HS [facility] PRN Reason: Protocol Stop: 06/08/17 21:01 Last Admin: 12/08/16 20:09 Dose: Not Given Insulin Human Lispro (Humalog) 0 units SQ TIDAC CARLOS PRN Reason: Protocol Stop: 06/08/17 16:31 Last Admin: 12/09/16 08:08 Dose: Not Given Lisinopril (Zestril) 2.5 mg PO Q24H [facility] PRN Reason: Protocol Stop: 06/07/17 17:01 Last Admin: 12/08/16 16:58 Dose: 2.5 mg Lorazepam (Ativan) 0.25 mg PO TID PRN PRN Reason: Anxiety Stop: 06/07/17 17:10 Metoprolol Succinate (Toprol Xl) 25 mg PO DAILY [facility] Stop: 06/08/17 10:01 Last Admin: 12/09/16 08:01 Dose: 25 mg Naloxone HCl (Narcan) 0.4 mg IVP Q2MIN PRN PRN Reason: Opioid Reversal Stop: 06/07/17 17:06 Nicotine (Nicoderm) 14 mg TD DAILY [facility] Stop: 06/07/17 17:46 Last Admin: 12/09/16 08:02 Dose: 14 mg Omeprazole (Prilosec) 20 mg PO 0630 [facility] Stop: 06/08/17 06:31 Last Admin: 12/09/16 05:21 Dose: 20 mg Prednisone (Prednisone) 10 mg PO DAILY [facility] Stop: 06/08/17 09:01 Last Admin: 12/09/16 08:02 Dose: 10 mg Senna (Senna) 8.6 mg PO DAILY PRN PRN Reason: Constipation Stop: 06/09/17 09:01 Simvastatin (Zocor) 40 mg PO HS [facility] Stop: 06/07/17 21:01 Last Admin: 12/08/16 20:09 Dose: 40 mg Spironolactone (Aldactone) 12.5 mg PO DAILY [facility] Stop: 06/09/17 09:01 Last Admin: 12/09/16 08:01 Dose: 12.5 mg - EKG Interpretation EKG results cardiology: other (Telemetry reviewed with average heart rate the past 12 hours 87, currently A. fib in the 80s to 90s on telemetry) - VTE Documentation of Mechanical Device: Graduated compression elastic hosiery Consult Discharge Plan - Plan Referrals: Hal Monroy MD [Primary Care Provider] -
--- NOTE | 2016-12-09 16:40 | Internal Med Progress Note ---
Date of Encounter: 12/09/16 Time of Encounter: 10:00 - Assessment and plan (1) Hypertension Current Visit: Yes Status: Chronic Assessment and plan: Continue home medications. BP is stable but at lower side. Qualifiers: Hypertension type: essential hypertension Qualified Code(s): I10 - Essential (primary) hypertension (2) Nicotine dependence Current Visit: Yes Status: Chronic Assessment and plan: On nicotine patch Qualifiers: Nicotine product type: cigarettes Substance use status: other nicotine- induced disorder Qualified Code(s): F17.218 - Nicotine dependence, cigarettes , with other nicotine-induced disorders (3) DVT prophylaxis Current Visit: Yes Status: Acute Assessment and plan: Patient is taking Eliquis. (4) CAD (coronary artery disease) Current Visit: Yes Status: Chronic Assessment and plan: S/P CABG. Continue Plavix, statin, beta patti Qualifiers: Coronary Disease-Associated Artery/Lesion type: bypass graft [place] vs. transplanted heart: [place] heart Associated angina: without angina Qualified Code(s): I25.810 - Atherosclerosis of coronary artery bypass graft(s) without angina pectoris (5) Atrial fibrillation with RVR Current Visit: Yes Status: Acute Assessment and plan: Right now heart rate is controlled with Hr 86-104 after added digoxin, still A Fib. keep po metoprolol. Cardiology saw pt today and sign off, recommend discharge pt tomorrow. - Cardiology consult and EP cardiology consul appreciated. Consider rate instead rhythm control at this point. - Continue Eliquis for anticoagulation. (6) JORGE (obstructive sleep apnea) Current Visit: Yes Status: Acute Assessment and plan: Continue CPAP at night (7) COPD (chronic obstructive pulmonary disease) Current Visit: Yes Status: Chronic Assessment and plan: No signs of exacerbation. Continue home medications. Patient is on chronic steroid use with prednisone 10 mg by mouth daily Qualifiers: COPD type: unspecified COPD Qualified Code(s): J44.9 - Chronic obstructive pulmonary disease, unspecified (8) Chronic systolic CHF (congestive heart failure), NYHA class 2 Current Visit: Yes Status: Acute Assessment and plan: Patient has systolic CHF with EF 35%. On beta patti and JAKE inhibitor. On po lasix and spironolactone. Has AICD placed. (9) Confusion Current Visit: Yes Status: Acute Assessment and plan: Resolved. Neurology consult appreciated. duplex carotid done, results unremarkable. - Time Spent With Patient 25 - 35 minutes - Subjective Interval history: Patient is a 71-year-old female admitted for A Fib with RVR. Possible medical history is significant for A. fib, COPD, hypertension, CHF, JORGE, CAD s/p CABG. Patient was seen and examined. States "I am fine". Denies chest pain or shortness of breath. HR get down to 86-104 as digoxin added to her med list. Blood pressure is stable. Continue closely follow vitals and monitor patient. - Constitutional Vitals: Temp Pulse Resp BP Pulse Ox 98 F 91 16 104/51 98 12/09/16 16:18 12/09/16 16:18 12/09/16 16:18 12/09/16 16:18 12/09/16 16:18 General appearance: Present: A&O X 3, pleasant, no acute distress, answers questions appropriately - Head Head exam: Present: atraumatic, normocephalic - Eye Eye exam: Present: PERRL, conjuntiva pink, sclera anicteric Pupils: Present: PERRL - Neck Neck exam general surgery: Present: supple, trachea midline. Absent: lymphadenopathy - Respiratory Respiratory exam: Present: CTAB. Absent: accessory muscle use, rales, rhonchi, wheezes - Cardiovascular Cardiovascular exam: Present: irregular rhythm, +S1, +S2. Absent: diastolic murmur, gallop, rubs, systolic murmur - GI/Abdominal GI/Abdominal exam: Present: normal bowel sounds, soft, no peritoneal signs. Absent: distended, tenderness - Extremities Exam Extremities exam: Present: warm, radial pulses palpable and symetrical. Absent : calf tenderness, cyanotic, pedal edema - Neurological Exam Neurological exam: Present: CN II-XII intact, oriented X3, no focal deficits. Absent: pronater drift, facial droop, speech deficit - Skin Skin exam: Present: dry, intact Internal Medicine: Result - Labs CBC & Chem 7: 12/09/16 05:41 12/09/16 05:41 Labs: Short CBC 12/09/16 Range/Units 05:41 WBC 8.4 (4.3-11.1) K/mcL Hgb 10.1 L (11.5-15.4) g/dL Hct 32.5 L (35.3-44.9) % Plt Count 234 (140-400) K/mcL Neutrophils # 5.6 (1.6-8.9) K/mcL BMP 12/09/16 05:41 Sodium 142 Potassium 3.9 Chloride 106 Carbon Dioxide 29 BUN 21 H Creatinine 0.82 Glucose 98 Calcium 8.5 L - VTE Documentation of Mechanical Device: Graduated compression elastic hosiery Consult Discharge Plan - Plan Referrals: Hal Monroy MD [Primary Care Provider] -
[2016-12-10] MEDS: Ipratropium/Albuterol Neb 3 ML IH SCH ×2 (04:00→11:25)
[2016-12-10 08:00] VITALS: BP 108/70
[2016-12-10] MEDS: Nicotine 14 MG PATCH.TD24 TD SCH (08:12)
[2016-12-10] MEDS: Spironolactone 25 MG TABLET PO SCH (08:13)
[2016-12-10] MEDS: APIXABAN 5 MG TABLET PO SCH (08:14)
[2016-12-10] MEDS: predniSONE 10 MG TABLET PO SCH (08:14)
[2016-12-10] MEDS: Furosemide 20 MG TABLET PO SCH (08:14)
[2016-12-10] MEDS: Metoprolol XL (24 HR) Succ 25 MG TAB.ER.24H PO SCH (08:14)
[2016-12-10] MEDS: *HR* Digoxin 0.125 MG TABLET PO SCH (08:15)
[2016-12-10] MEDS: Insulin LISPRO 300 UNITS/3 ML VIAL SQ SCH (08:17)
--- NOTE | 2016-12-10 10:06 | Discharge Summary ---
Date of Encounter: 12/10/16 Time of Encounter: 09:00 - Discharge Diagnosis (1) Hypertension Priority: Secondary Status: Chronic Qualifiers: Hypertension type: essential hypertension Qualified Code(s): I10 - Essential (primary) hypertension (2) Nicotine dependence Priority: Secondary Status: Chronic Qualifiers: Nicotine product type: cigarettes Substance use status: other nicotine- induced disorder Qualified Code(s): F17.218 - Nicotine dependence, cigarettes , with other nicotine-induced disorders (3) DVT prophylaxis Priority: Secondary Status: Acute (4) CAD (coronary artery disease) Priority: Secondary Status: Chronic Qualifiers: Coronary Disease-Associated Artery/Lesion type: bypass graft [place] vs. transplanted heart: [place] heart Associated angina: without angina Qualified Code(s): I25.810 - Atherosclerosis of coronary artery bypass graft(s) without angina pectoris (5) Atrial fibrillation with RVR Priority: Primary Status: Acute (6) JORGE (obstructive sleep apnea) Priority: Secondary Status: Acute (7) COPD (chronic obstructive pulmonary disease) Priority: Secondary Status: Chronic Qualifiers: COPD type: unspecified COPD Qualified Code(s): J44.9 - Chronic obstructive pulmonary disease, unspecified (8) Chronic systolic CHF (congestive heart failure), NYHA class 2 Priority: Secondary Status: Acute (9) Confusion Priority: Primary Status: Acute - Discharge Medications Prescriptions: Digoxin [Lanoxin] 0.125 mg PO DAILY #30 tab Metoprolol XL (24 HR) Succ [Toprol Xl] 25 mg PO DAILY #30 Home Medications: Apixaban [Eliquis] 5 mg PO BID 08/04/16 [History] Clopidogrel [Plavix] 75 mg PO DAILY 08/04/16 [History] Ferrous Sulfate 325 mg PO DAILY 08/04/16 [History] Fluticasone/Salmeterol [Advair 500-50 Diskus] 1 each IH BID 08/04/16 [History] Pantoprazole Sodium [Protonix] 40 mg PO DAILY 08/04/16 [History] Pravastatin Sodium [Pravachol] 80 mg PO HS 08/04/16 [History] Ipratropium/Albuterol Neb [Duoneb] 3 ml IH Q6HR PRN #30 11/13/16 [Rx] Furosemide [Lasix] 20 mg PO BID #60 tablet 11/18/16 [Rx] Lisinopril [Zestril] 2.5 mg PO DAILY #30 tablet 11/18/16 [Rx] Spironolactone [Aldactone] 12.5 mg PO DAILY #30 tablet 11/18/16 [Rx] Oxygen 3 l NS AD 12/06/16 [History] Acetaminophen [Tylenol] 1,000 mg PO HS tab 12/10/16 [Rx] Digoxin [Lanoxin] 0.125 mg PO DAILY #30 tab 12/10/16 [Rx] DiphenhydraMINE [Benadryl] 50 mg PO HS 12/10/16 [Rx] Ipratropium/Albuterol Neb [Duoneb] 3 ml IH [id number] inh 12/10/16 [Rx] Metoprolol XL (24 HR) Succ [Toprol Xl] 25 mg PO DAILY #30 12/10/16 [Rx] Nicotine Patch [Nicoderm] 14 mg TD DAILY 12/10/16 [Rx] Sennosides [Senna] 8.6 mg PO DAILY #60 tablet 12/10/16 [Rx] metFORMIN [Glucophage] 500 mg PO DAILY #30 tablet 12/10/16 [Rx] predniSONE [PredniSONE] 10 mg PO DAILY tab 12/10/16 [Rx] Allergies/Adverse Reactions: Allergies bupropion [From Wellbutrin] Allergy (Verified 12/06/16 11:11) Swelling of Lip/Tongue/Throat Varenicline [From Chantix] Allergy (Verified 12/06/16 11:11) Swelling of Lip/Tongue/Throat Iodinated Contrast- Oral and IV Dye [Iodinated Contrast Media - Oral and] Adverse Reaction (Verified 11/10/16 15:03) See Comments patient unsure of what happens with this??? Sulfa (Sulfonamide Antibiotics) Adverse Reaction (Verified 10/06/16 20:40) Hives tape Adverse Reaction (Uncoded 08/04/16 12:35) Hives Procedures/tests Complete & Pending: Procedures Performed prior 72 hours Category Date Time Status EV carotid duplex imaging BI Routine Y 12/07/16 12:59 Completed - Notes to Outpatient Provider 1. Home medication has been modified per cardiology recommendation: Add digoxin 0.125 mg po daily. Change metoprolol to metoprolol XL 25 mg by mouth daily. Decrease spironolactone dose from 25 mg by mouth daily to 12.5 mg by mouth daily. Date of admission: 12/06/16 17:20 Primary care physician: Hal Monroy MD Consults: 12/06/16 18:47 Consult to Neurology [CONS] Routine Consulting Provider: [facility] Reason for Consult: various neuro symptoms reported: blurred vision, balance problems, intermittent confusion. CT negative for acute defect. Call Completed: No 12/07/16 09:15 Consult to Occupational Therapy [CONS] Routine Comment: Evaluate, develop and implement POC Reason for Consult: eval due to balance problem Consult to Physical Therapy [CONS] Routine Comment: Evaluate, develop and implement POC Reason for Consult: eval due to balance problem 12/07/16 09:48 Consult to Electrophysiology (EP) [CONS] Routine Consulting Provider: [facility] Reason for Consult: A-Fib, recurrent on Tikosyn Call Completed: Yes 12/09/16 17:03 Consult to Python Programmer [CONS] Routine Comment: Reason for Consult: NEW DIABETIC Discharging clinician: Andrés Mota Anticipated date of discharge: 12/10/16 - Patient Status Disposition: Home Health Service Condition: Fair Functional capacity at discharge: uses cane/walker Overall status at discharge: patient is back to baseline - Discharge Instructions Follow Up With: Hal Monroy MD [Primary Care Provider] - - Diet and Activity Activity: as per physical therapy, increase activity as tolerated Diet: diabetic diet, low salt diet Interval History: HPI: Ms. Rodarte is a 71 year old female with atrial fibrillation, hypertension, CHF, COPD, coronary artery disease status post CABG and stent placement, sleep apnea , GERD presented to the emergency department today with multiple complaints. Patient's daughter reports she is having frequent headaches, lightheadedness, balance issues, intermittent confusion, and blurred vision. Patient's daughter reports that she observes a left-sided weakness. Patient reports occasional headache and lightheadedness, balance issues, occasional shortness of breath. All of these complaints have been going on on and off for the last month. Patient has been hospitalized multiple times over the last month. On 6:30 she was hospitalized with CHF exacerbation and COPD exacerbation, she returned on 72 with A. fib with RVR. Daughter reports that she will then went to [place] with A. fib and was cardioverted at that time. Daughter reports that they were told she may need an ablation and pacemaker lead placement at [place]. Evaluation in the emergency department revealed elevated lactate of 2.9. Urinalysis was negative for infection, chest x-ray showed no acute process. Head CT showed multifocal areas of low attenuation consistent with prior ischemia and chronic microvascular ischemic changes however no comparative image. White blood cell count was normal at 10.6. She was afebrile at 98.1. Initially her heart rate was mildly elevated in the 90s, but she progressed into A. fib with RVR with heart rate 130s and 140s. Patient been started on Cardizem drip. On exam, patient alert and oriented, in no acute distress. Satting 96% on room air, heart rate was in the 130s to 140s on my exam. Patient denied any current chest pain, shortness of breath, lightheadedness or dizziness. Neurologically intact, equal strength bilaterally, no pronator drift. Hospital course: Ms. Rodarte is a 71 year old female admitted for A. fib RVR. Patient was placed on Cardizem drip, cardiology consult was called and see patient. Her medication has been adjusted. Patient was placed on the digoxin 0.125 po daily. Her heart rate has been well controlled after treatment. Patient also complaining confusion on admission. Neurology consult was called and the saw patient. Patient has no focal neuro deficit, the confusion has improved by itself. Duplex carotid has been done, results is unremarkable. After treatment , patient feels fine, back to her baseline. PT OT has evaluated patient, recommended ECF at discharge. However, patient's daughter insisted patient is being discharged home and she will take care of patient at home. We will arrange a home discharge with home health and home PT OT. I saw and examined the patient. Patient is awake alert. Denies chest pain, shortness of breath, palpitation, nausea, vomiting. Vitals are stable. Patient will discharge home with home health, home PT OT, and a follow-up with cardiology and PCP as outpatient. - Time Spent with Patient Total time spent providing and/or coordinating discharge services: 40 minutes Greater than 30 minutes - Constitutional Vitals: Temp Pulse Resp BP Pulse Ox 98.2 F 75 15 108/70 100 12/10/16 07:39 12/10/16 07:39 12/10/16 07:39 12/10/16 07:39 12/10/16 07:39 General appearance: Present: A&O X 3, pleasant, no acute distress, answers questions appropriately - Head Head exam: Present: atraumatic, normocephalic - Eye Eye exam: Present: PERRL, conjuntiva pink, sclera anicteric Pupils: Present: PERRL - Neck Neck exam general surgery: Present: supple, trachea midline. Absent: lymphadenopathy - Respiratory Respiratory exam: Present: CTAB. Absent: accessory muscle use, rales, rhonchi, wheezes - Cardiovascular Cardiovascular exam: Present: irregular rhythm, +S1, +S2. Absent: diastolic murmur, gallop, rubs, systolic murmur - GI/Abdominal GI/Abdominal exam: Present: normal bowel sounds, soft, no peritoneal signs. Absent: distended, tenderness - Extremities Exam Extremities exam: Present: warm, radial pulses palpable and symetrical. Absent : calf tenderness, cyanotic, pedal edema - Neurological Exam Neurological exam: Present: CN II-XII intact, oriented X3, no focal deficits. Absent: pronater drift, facial droop, speech deficit - Skin Skin exam: Present: dry, intact - VTE Documentation of Mechanical Device: Graduated compression elastic hosiery
--- NOTE | 2016-12-10 10:23 | Physician Discharge Referral ---
Home Health/Hosp Referral Info Transfer to: Home Health Provider in Charge Post Discharge: PCP - Diagnosis (1) Hypertension Status: Chronic (2) Nicotine dependence Status: Chronic (3) DVT prophylaxis Status: Acute (4) CAD (coronary artery disease) Status: Chronic (5) Atrial fibrillation with RVR Status: Acute (6) JORGE (obstructive sleep apnea) Status: Acute (7) COPD (chronic obstructive pulmonary disease) Status: Chronic (8) Chronic systolic CHF (congestive heart failure), NYHA class 2 Status: Acute (9) Confusion Status: Acute - Respiratory Orders Oxygen / L per min (3) Smoking Cessation: Smoking cessation has been advised. For more information, call the [place] Tobacco Quit Line at 9-127-IAUD-NOW. - Diet/Nutrition Diet/Nutrition Orders: Cardiac, No Concentrated Sweets - Services Needed Following services are medically necessary services: Nursing, Home Health Aide, Physical Therapy, Occupational Therapy - Transfer Medications Prescriptions: Digoxin [Lanoxin] 0.125 mg PO DAILY #30 tab metFORMIN [Glucophage] 500 mg PO DAILY #30 tablet Metoprolol XL (24 HR) Succ [Toprol Xl] 25 mg PO DAILY #30 Sennosides [Senna] 8.6 mg PO DAILY #60 tablet Home Medications: Apixaban [Eliquis] 5 mg PO BID 08/04/16 [History] Clopidogrel [Plavix] 75 mg PO DAILY 08/04/16 [History] Ferrous Sulfate 325 mg PO DAILY 08/04/16 [History] Fluticasone/Salmeterol [Advair 500-50 Diskus] 1 each IH BID 08/04/16 [History] Pantoprazole Sodium [Protonix] 40 mg PO DAILY 08/04/16 [History] Pravastatin Sodium [Pravachol] 80 mg PO HS 08/04/16 [History] Ipratropium/Albuterol Neb [Duoneb] 3 ml IH Q6HR PRN #30 11/13/16 [Rx] Furosemide [Lasix] 20 mg PO BID #60 tablet 11/18/16 [Rx] Lisinopril [Zestril] 2.5 mg PO DAILY #30 tablet 11/18/16 [Rx] Spironolactone [Aldactone] 12.5 mg PO DAILY #30 tablet 11/18/16 [Rx] Oxygen 3 l NS AD 12/06/16 [History] Acetaminophen [Tylenol] 1,000 mg PO HS tab 12/10/16 [Rx] Digoxin [Lanoxin] 0.125 mg PO DAILY #30 tab 12/10/16 [Rx] DiphenhydraMINE [Benadryl] 50 mg PO HS 12/10/16 [Rx] Ipratropium/Albuterol Neb [Duoneb] 3 ml IH [id number] inh 12/10/16 [Rx] Metoprolol XL (24 HR) Succ [Toprol Xl] 25 mg PO DAILY #30 12/10/16 [Rx] Nicotine Patch [Nicoderm] 14 mg TD DAILY 12/10/16 [Rx] Sennosides [Senna] 8.6 mg PO DAILY #60 tablet 12/10/16 [Rx] metFORMIN [Glucophage] 500 mg PO DAILY #30 tablet 12/10/16 [Rx] predniSONE [PredniSONE] 10 mg PO DAILY tab 12/10/16 [Rx] Allergies/Adverse Reactions: Allergies bupropion [From Wellbutrin] Allergy (Verified 12/06/16 11:11) Swelling of Lip/Tongue/Throat Varenicline [From Chantix] Allergy (Verified 12/06/16 11:11) Swelling of Lip/Tongue/Throat Iodinated Contrast- Oral and IV Dye [Iodinated Contrast Media - Oral and] Adverse Reaction (Verified 11/10/16 15:03) See Comments patient unsure of what happens with this??? Sulfa (Sulfonamide Antibiotics) Adverse Reaction (Verified 10/06/16 20:40) Hives tape Adverse Reaction (Uncoded 08/04/16 12:35) Hives Certification: Further, I certify that my clinical findings support that this patient is homebound (i.e. absences from home require considerable and taxing effort and are for medical reasons or jainism services or infrequently or short duration when for other reasons) because: Homebound Reason: Patient requires assistance of a person or device to safely leave home Attestation: My signature below is to certify that this patient is under my care and that I, or nurse practitioner, or a physician's orthotics prosthetics assistant working with me, has a face-to -face encounter with this patient.
[2016-12-10] MEDS: Budesonide/Formoterol 160/4.5 MDI IH SCH (11:25)
== END 2016-12-10 14:45 | disposition home health service (06) | DRG 308 ==
LOC: EMEROO 10:56 → 3BNU 10:56 → SUATTDRO 17:20 → 2NENU 17:26
PROVIDERS: ADMIT Internal Medicine; ATTEND Internal Medicine

== ENCOUNTER 2017-02-04 13:35 | Inpatient (IN) ==
[2017-02-04] MEDS ORDERED: Ipratropium/Albuterol Neb 3 ML IH ONE (13:49)
[2017-02-04] MEDS ORDERED: methylPREDNISolone 125 MG/2 ML VIAL IVP ONE (13:49)
[2017-02-04] MEDS ORDERED: Aspirin 81 MG TAB.CHEW PO ONE (13:51)
[2017-02-04 14:01] LABS: Basophils % 0.1 %; Eosinophils % 0.1 %; Hematocrit 43.8 % (35.3-44.9); Hemoglobin 14.1 g/dL (11.5-15.4); Immature Granulocytes % 1.1 % (0-4); Lymphocytes # 1.2 K/mcL (0.6-4.6); Lymphocytes % 8.2 %; Mean Corpuscular HGB Conc 32.2 g/dL (31.6-35.5); Mean Corpuscular Hemoglobin 29.7 pg (28.0-33.3); Mean Corpuscular Volume 92.2 fL (83.0-100.0); Mean Platelet Volume 10.9 fL (9.4-12.4); Monocytes # 0.4 K/mcL (0.0-1.3); Monocytes % 2.8 %; Neutrophils # 13.1 K/mcL (1.6-8.9); Platelet Count 255 K/mcL (140-400); Red Blood Count 4.75 M/mcL (3.82-4.97); Red Cell Distribution Width 13.4 % (11.5-14.5); Segmented Neutrophils % 87.7 %
--- NOTE | 2017-02-04 14:08 | Emergency Department Note ---
Disposition Clinical Impression: Acute kidney injury Acute and chronic respiratory failure Qualifiers: Respiratory failure complication: unspecified whether with hypoxia or hypercapnia Qualified Code(s): J96.20 - Acute and chronic respiratory failure, unspecified whether with hypoxia or hypercapnia Disposition: Admitted As Inpatient Condition: Fair Time of Disposition: 17:31 General Adult HPI - General Chief complaint: ED Weakness Stated complaint: ZOE Time Seen by Provider: 02/04/17 13:42 Source: patient Mode of arrival: wheelchair Limitations: no limitations Nursing Notes Reviewed: Yes Vital Signs Reviewed: Yes - History of Present Illness HPI Narrative: Mrs. Rodarte, a 71-year-old female, presents from home for evaluation of shortness of breath which is been progressive for the last 3-4 days. Patient has history of COPD and is oxygen dependent-3 L via nasal cannula. Anticoagulated on eliquis PMH: Hypertension, hyperlipidemia, systolic congestive heart failure, CAD status post CABG, atrial fibrillation, obstructive sleep apnea on CPAP, COPD oxygen dependent-3 L ROS: Positive: Dyspnea, weakness, confusion Negative: Fever, chills, nausea, vomiting, chest pains, palpitations, back pains , abdominal pains, changes in bowel or bladder Pain Scale: 0 - Related Data Home Medications Medication Instructions Recorded Confirmed Apixaban [Eliquis] 5 mg PO BID 08/04/16 02/04/17 Clopidogrel [Plavix] 75 mg PO DAILY 08/04/16 02/04/17 Ferrous Sulfate 325 mg PO DAILY 08/04/16 02/04/17 Fluticasone/Salmeterol [Advair 1 puff IH BID 08/04/16 02/04/17 500-50 Diskus] Pantoprazole Sodium [Protonix] 40 mg PO DAILY 08/04/16 02/04/17 Pravastatin Sodium [Pravachol] 80 mg PO HS 08/04/16 02/04/17 Oxygen 3 l NS AD 12/06/16 02/04/17 Acetaminophen/Diphenhydramine 1 tab PO HS 02/04/17 02/04/17 [Acetaminophen Pm Caplet] Digoxin [Lanoxin] 0.125 mg PO MOTUWETHFR 02/04/17 02/04/17 Sennosides [Senna] 8.6 mg PO DAILY PRN 02/04/17 02/04/17 Spironolactone [Aldactone] 12.5 mg PO BID 02/04/17 02/04/17 Previous Rx's Medication Instructions Recorded Ipratropium/Albuterol Neb [Duoneb] 3 ml IH Q6HR PRN #30 11/13/16 Furosemide [Lasix] 20 mg PO BID #60 tablet 11/18/16 Lisinopril [Zestril] 2.5 mg PO DAILY #30 tablet 11/18/16 Metoprolol XL (24 HR) Succ [Toprol 25 mg PO DAILY #30 12/10/16 Xl] metFORMIN [Glucophage] 500 mg PO DAILY #30 tablet 12/10/16 predniSONE [PredniSONE] 10 mg PO DAILY tab 12/10/16 Allergies Allergy/AdvReac Type Severity Reaction Status Date / Time bupropion [From Wellbutrin] Allergy Swelling Verified 12/06/16 11:11 of Lip/Tongue/Throat Sulfa (Sulfonamide Allergy Hives Verified 02/04/17 14:58 Antibiotics) Varenicline [From Chantix] Allergy Swelling Verified 12/06/16 11:11 of Lip/Tongue/Throat Iodinated Contrast- Oral and AdvReac See Verified 11/10/16 15:03 IV Dye Comments [Iodinated Contrast Media - Oral and] tape Allergy Hives Uncoded 02/04/17 14:58 All systems ED: reviewed and negative except as stated. Review of Systems: As Per HPI Past Medical History - Past Medical History Medical history: Reports: arthritis, atrial fibrillation, CHF, COPD, coronary artery disease, diabetes, GI bleed, hypertension, myocardial infarction Surgical history: Reports: angioplasty/stent, coronary bypass (CABG), hysterectomy, pacemaker/AICD Psychiatric history: Reports: anxiety, depression - Social History Smoking Status: Current every day smoker Smokeless Tobacco Status: No Alcohol use: Reports: none Drug use: Reports: none Physical Exam Vital Signs Reviewed General: Patient is alert, oriented, and in mild respiratory distress-she is pursed lip breathing. HEENT: No facial asymmetry. Head is normocephalic and atraumatic. Oral mucosa moist. Trachea midline. Cardiovascular: Heart regular rate and rhythm without clicks, rubs, gallops, or murmurs. No JVD. PMI nondisplaced. 1+ bilateral pitting edema. Respiratory: Symmetric chest rise with good respiratory effort. Prolonged expiratory phase. Bilateral breath sounds are managed with scant wheezing throughout. No crackles or rhonchi. Abdomen: Bowel sounds present normoactive x-4 quadrants. Abdomen is soft, nondistended, and nontender. Neuro: GCS 15. Psych: Patient's affect is appropriate for situation. - General General appearance: alert, in no apparent distress Course Course Narrative: Patient presents for evaluation of dyspnea which has been ongoing for the past several days. On arrival, she has pursed lip breathing but oxygenating well. Her daughter is bedside who is a previous fleshing machine operator. Patient lives at home with her daughter. Clinically, patient appears to have acute exacerbation of COPD however, given her, get a medical history, will perform extensive workup. Patient's lab work has returned indicating acute kidney injury compared to her baseline. Suspect this is secondary to her dehydration. Chest x-ray is unremarkable as read by radiology. EKG is unremarkable and serum troponin 0.03. Clinically, there may be an exertional component to her above-zero troponin level. She responded well to do nebulized therapy. Patient's dyspnea at this time clinically appears to be acute exacerbation of COPD. I provided IV site Medrol and gentle fluid rehydration for her acute kidney injury with attention paid to avoid exacerbating her congestive heart failure. Patient and daughter agree to admission continued evaluation and management. I discussed the patient with the admitting hospitalist who agrees to accept her for continued evaluation and management. Chest X-Ray 02/04/17 13:49 IMPRESSION: Stable cardiomegaly. No acute cardiopulmonary process. D/ / 02/04/2017 14:25:15 Maxi Lau MD [facility] Interpreting Provider: Maxi Lau MD Vital Signs Temperature 98.8 F 02/04/17 13:43 Pulse Rate 99 02/04/17 13:43 Respiratory Rate 16 02/04/17 13:43 Blood Pressure 104/65 02/04/17 13:43 O2 Sat by Pulse Oximetry 96 02/04/17 13:43 Temperature 98.8 F 02/04/17 13:43 Pulse Rate 76 02/04/17 15:49 Respiratory Rate 20 02/04/17 16:28 Blood Pressure 123/72 02/04/17 16:28 O2 Sat by Pulse Oximetry 98 02/04/17 15:49 Oxygen Delivery Oxygen Delivery Nasal Cannula Medical Decision Making - Medical Records Medical records reviewed: Yes I reviewed the patient's medical records. - Lab Data Lab results reviewed: Yes I reviewed the patient's lab results. Result diagrams: 02/04/17 13:50 02/04/17 13:50 Lab Results 02/04/17 02/04/17 02/04/17 Range/Units 13:50 13:50 13:50 WBC 14.9 H (4.3-11.1) K/mcL RBC 4.75 (3.82-4.97) M/mcL Hgb 14.1 (11.5-15.4) g/dL Hct 43.8 (35.3-44.9) % MCV 92.2 (83.0-100.0) fL MCH 29.7 (28.0-33.3) pg MCHC 32.2 (31.6-35.5) g/dL RDW 13.4 (11.5-14.5) % Plt Count 255 (140-400) K/mcL MPV 10.9 (9.4-12.4) fL Immature Gran % 1.1 (0-4) % Seg Neutrophils % 87.7 % Lymphocytes % 8.2 % Monocytes % 2.8 % Eosinophils % 0.1 % Basophils % 0.1 % Neutrophils # 13.1 H (1.6-8.9) K/mcL Lymphocytes # 1.2 (0.6-4.6) K/mcL Monocytes # 0.4 (0.0-1.3) K/mcL Eosinophils # 0.0 (0.0-0.6) K/mcL Basophils # 0.0 (0.0-0.2) K/mcL PT 14.2 H (9.4-12.1) Seconds INR 1.3 APTT 33.2 (26.0-36.0) Seconds Sodium 135 L (136-145) mEq/L Potassium 4.8 H (3.5-4.5) mEq/L Chloride 99 (98-109) mEq/L Carbon Dioxide 24 (19-29) mEq/L BUN 27 H (7-20) mg/dL Creatinine 1.25 H (0.57-1.11) mg/dL Est GFR ( Amer) 51 L (> 60) Est GFR (Non-Af Amer) 42 L (> 60) BUN/Creatinine Ratio 22 (6-26) Glucose 215 H (70-99) mg/dL Calculated Osmolality 292 (280-300) Calcium 9.6 (8.6-10.8) mg/dL Total Bilirubin 0.4 (0.2-1.2) mg/dL Direct Bilirubin 0.1 (0.0-0.5) mg/dL Indirect Bilirubin 0.3 (0.0-1.2) mg/dL AST 20 (5-34) Units/L ALT 25 (0-55) Units/L Alkaline Phosphatase 68 (38-126) Units/L Troponin I (0-0.03) ng/mL B-Natriuretic Peptide (0-100) pg/mL Serum Total Protein 7.8 (6.0-8.3) g/dL Albumin 3.7 (3.5-5.0) g/dL Globulin 4.1 H (2.4-3.5) g/dL Albumin/Globulin Ratio 0.9 L (1.1-2.2) Urine Color (Yellow) Urine Clarity (Clear) Urine pH (5.0-8.0) pH Units Ur Specific [place] (1.010-1.025) Urine Protein (Neg-Trace) mg/dL Urine Glucose (UA) (Normal) mg/dL Urine Ketones (Negative) mg/dL Urine Blood (Negative) Urine Nitrite (Negative) Urine Bilirubin (Negative) Urine Urobilinogen (Normal) mg/dL Ur Leukocyte Esterase (Negative) Ur Culture Indicated? (NO) 02/04/17 02/04/17 02/04/17 Range/Units 13:50 13:50 15:28 WBC (4.3-11.1) K/mcL RBC (3.82-4.97) M/mcL Hgb (11.5-15.4) g/dL Hct (35.3-44.9) % MCV (83.0-100.0) fL MCH (28.0-33.3) pg MCHC (31.6-35.5) g/dL RDW (11.5-14.5) % Plt Count (140-400) K/mcL MPV (9.4-12.4) fL Immature Gran % (0-4) % Seg Neutrophils % % Lymphocytes % % Monocytes % % Eosinophils % % Basophils % % Neutrophils # (1.6-8.9) K/mcL Lymphocytes # (0.6-4.6) K/mcL Monocytes # (0.0-1.3) K/mcL Eosinophils # (0.0-0.6) K/mcL Basophils # (0.0-0.2) K/mcL PT (9.4-12.1) Seconds INR APTT (26.0-36.0) Seconds Sodium (136-145) mEq/L Potassium (3.5-4.5) mEq/L Chloride (98-109) mEq/L Carbon Dioxide (19-29) mEq/L BUN (7-20) mg/dL Creatinine (0.57-1.11) mg/dL Est GFR ( Amer) (> 60) Est GFR (Non-Af Amer) (> 60) BUN/Creatinine Ratio (6-26) Glucose (70-99) mg/dL Calculated Osmolality (280-300) Calcium (8.6-10.8) mg/dL Total Bilirubin (0.2-1.2) mg/dL Direct Bilirubin (0.0-0.5) mg/dL Indirect Bilirubin (0.0-1.2) mg/dL AST (5-34) Units/L ALT (0-55) Units/L Alkaline Phosphatase (38-126) Units/L Troponin I 0.03 (0-0.03) ng/mL B-Natriuretic Peptide 183 H (0-100) pg/mL Serum Total Protein (6.0-8.3) g/dL Albumin (3.5-5.0) g/dL Globulin (2.4-3.5) g/dL Albumin/Globulin Ratio (1.1-2.2) Urine Color Yellow (Yellow) Urine Clarity Clear (Clear) Urine pH 6.0 (5.0-8.0) pH Units Ur Specific [place] 1.018 (1.010-1.025) Urine Protein Negative (Neg-Trace) mg/dL Urine Glucose (UA) Normal (Normal) mg/dL Urine Ketones Negative (Negative) mg/dL Urine Blood Negative (Negative) Urine Nitrite Negative (Negative) Urine Bilirubin Negative (Negative) Urine Urobilinogen Normal (Normal) mg/dL Ur Leukocyte Esterase Negative (Negative) Ur Culture Indicated? NO (NO) - Radiology Data Radiology results reviewed: Yes I reviewed the patient's radiology results. - EKG Data EKG #1 EKG attestation: Yes I reviewed and interpreted this EKG. EKG results narrative: EKG dated 02/04/17 at 13:52 interpreted as atrial fibrillation with a rate of 92. Left axis. Nonspecific ST-T changes. Compared to previous dated 2016 showing no acute ischemic changes of comparison. Attestation Statement - Attestation Attestation: I examined this patient and my medical decision-making was reviewed with the Resident Physician, Dr. Deleon. I agree with the documented findings, disposition and treatment plan as described except to the extent set forth below. Patient is a 71-year-old white female with history of CHF and COPD who presents to the emergency department today with a 3 to four-day history of gradually worsening shortness of breath. Patient is oxygen dependent on 3 L nasal cannula supplemental oxygen at all times. Patient has been especially short of breath with any level of exertion or walking. Patient was having personal breathing and tachypnea on our entrance into the room with increased work of breathing although room air sats were 98% on home O2. Patient denies any chest pain pressure or heaviness, no diaphoresis, no nausea vomiting no abdominal pain or back pain. No fevers or chills, no production of cough, no other associated symptoms. I agree with patient's physical exam findings as documented. EKG negative for any acute ischemic changes. Was kept on supplemental O2 and given DuoNeb 2 and IV steroids as well as aspirin. Chest x-ray was obtained which was within normal limits. She has a mild leukocytosis with left shift and some mild renal insufficiency with an elevation in her serum creatinine from baseline. Likely due to dehydration. Lab evaluation shows a negative troponin and no evidence of CHF on chest x-ray. Will admit patient for an acute exacerbation of COPD, discussed with family who are in agreement with decision to admit and patient was accepted by the hospitalist.
[2017-02-04 14:09] LABS: INR 1.3; Prothrombin Time 14.2 Seconds (9.4-12.1)
[2017-02-04 14:11] LABS: Activated Partial Thrombo Time 33.2 Seconds (26.0-36.0)
[2017-02-04 14:17] LABS: Albumin 3.7 g/dL (3.5-5.0); Albumin/Globulin Ratio 0.9 (1.1-2.2); Bilirubin,Direct 0.1 mg/dL (0.0-0.5); Bilirubin,Indirect 0.3 mg/dL (0.0-1.2); Bilirubin,Total 0.4 mg/dL (0.2-1.2); Calcium 9.6 mg/dL (8.6-10.8); Globulin 4.1 g/dL (2.4-3.5); Potassium 4.8 mEq/L (3.5-4.5); Total Protein 7.8 g/dL (6.0-8.3)
[2017-02-04] MEDS ORDERED: 0.9 % Sodium Chloride 500 ML IVC ONE (14:54)
[2017-02-04 15:38] LABS: Bilirubin,Urine Negative (Negative); Blood,Urine Negative (Negative); Clarity,Urine Clear (Clear); Color,Urine Yellow (Yellow); Glucose,Urine (UA) Normal (Normal); Ketones,Urine Negative (Negative); Leukocyte Esterase,Urine Negative (Negative); Nitrite,Urine Negative (Negative); Protein,Urine Negative (Neg-Trace); Specific Gravity,Urine 1.018 (1.010-1.025); Urobilinogen,Urine Normal (Normal)
[2017-02-04] MEDS ORDERED: *HR* HYDROcodone/Acet 5/325 mg TABLET PO PRN (16:54)
[2017-02-04] MEDS ORDERED: *HR* Promethazine 25 MG/ML VIAL IVP PRN (16:54)
[2017-02-04] MEDS ORDERED: Naloxone 0.4 MG/ML INJ IVP PRN (16:54)
[2017-02-04] MEDS ORDERED: Ondansetron 4 MG/2 ML VIAL IVP PRN (16:54)
[2017-02-04] MEDS ORDERED: *HR* Morphine 2 MG/ML SYRINGE IVP PRN (16:54)
[2017-02-04] MEDS ORDERED: Acetaminophen 325 MG TABLET PO PRN (16:54)
[2017-02-04] MEDS ORDERED: Sennosides 8.6 MG TABLET PO PRN (16:57)
[2017-02-04] MEDS ORDERED: NON-FORMULARY MEDICATION 1 EACH EACH (Oxygen [Oxygen] 3 L) NS SCH (17:00)
--- NOTE | 2017-02-04 17:04 | Internal Med History&Physical ---
Date of Encounter: 02/04/17 Time of Encounter: 16:40 Assessment and Plan (1) COPD exacerbation Current visit: No Status: Acute Will admit the pt into Tele Pt does have diffuse wheezing and in mild respiratory distress will start her on high IV steroids Solumedrol 40mg Q8hr Will give Duoneb scheduled Q4hr + Cont O2 at 3lit Since she does have cough with ecpectoration and with her smoking history will give her prophylactic abx Rocephin to reduce the hospital length of stay Will sent for sputum cx (2) TREY (acute kidney injury) Current visit: Yes Status: Acute due to dehydration and medication -Lasix and Aldactone Will hold on IV fluids to due to underline severe systolic CHF However will stop her diuretics lasix and aldactone for now (3) Hypertension Current visit: No Status: Chronic Resumed all home medications Qualifiers: Hypertension type: essential hypertension Qualified Code(s): I10 - Essential (primary) hypertension (4) Nicotine dependence Current visit: No Status: Chronic counseled to quit smoking placed her on nicotine patches Qualifiers: Nicotine product type: cigarettes Substance use status: other nicotine- induced disorder Qualified Code(s): F17.218 - Nicotine dependence, cigarettes , with other nicotine-induced disorders (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 Current visit: No Status: Chronic stable not in exacerbation held diuretics due to TREY resumed all other meds Qualifiers: Heart failure chronicity: acute on chronic Qualified Code(s): I50.43 - Acute on chronic combined systolic (congestive) and diastolic (congestive) heart failure (6) Atrial fibrillation Current visit: No Status: Chronic rate controlled with Metoprolol and Digoxin on Eliquis for anticoag Qualifiers: Atrial fibrillation type: chronic Qualified Code(s): I48.2 - Chronic atrial fibrillation (7) Type 2 diabetes mellitus Current visit: No Status: Chronic placed her on ISS will check HbA1C Qualifiers: Diabetes mellitus complication status: without complication Diabetes mellitus snf insulin use: without snf use Qualified Code(s): E11.9 - Type 2 diabetes mellitus without complications (8) DVT prophylaxis Current visit: No Status: Acute on Eliquis Internal Medicine - H&P: HPI Chief complaint: Shortness of breah Admitted From: Emergency Dept Plans for Post Hospital Care: Home History of present illness: Ms. Rodarte is a 71 year old female with known PMH of Hypertension, hyperlipidemia , systolic congestive heart failure, Ischemic cardiomyopathy, CAD status post CABG, chronic atrial fibrillation, obstructive sleep apnea on CPAP, COPD with home oxygen dependent-3 L presented to ER from home for evaluation of shortness of breath which is been progressive for the last 3-4 days. She does have cough with clean / whitish expectoration. She denied any CP. Denied any nausea / vomiting. Denied any GI / symptoms. Patient has history of COPD and is oxygen dependent-3 L via nasal cannula. Past Med Surg Social Fam HX - Past Medical History Medical history: arthritis, atrial fibrillation, CHF, COPD, coronary artery disease, diabetes, GI bleed, hypertension, myocardial infarction Psychiatric history: anxiety, depression - Past Surgical History Surgical History: angioplasty/stent, coronary bypass (CABG), hysterectomy, pacemaker/AICD - Social History Smoking Status: Current every day smoker Smokeless Tobacco Status: No Alcohol use: none Drug use: none - Family History Father Adopted: No Family Member Ethnicity: Non- Living Status: Hx Family Cardiac Disorders: Yes Hx Family Respiratory Disorders: No Hx Family Cancer: No Hx Family GI Disorders: No Hx Family Endocrine Disorder: No Hx Family Neuromuscular Disorders: No Hx Family Neurologic Disorders: No Hx Family HEENT Disorders: No Hx Family Autoimmune Disorders: No Mother Living Status: Hx Family Endocrine Disorder: Yes (DM) - Additional Family History Additional family history: Reviewed and non contribuitory to current problem Internal Medicine - H&P: Meds Apixaban [Eliquis] 5 mg PO BID 08/04/16 [History] Clopidogrel [Plavix] 75 mg PO DAILY 08/04/16 [History] Ferrous Sulfate 325 mg PO DAILY 08/04/16 [History] Fluticasone/Salmeterol [Advair 500-50 Diskus] 1 puff IH BID 08/04/16 [History] Pantoprazole Sodium [Protonix] 40 mg PO DAILY 08/04/16 [History] Pravastatin Sodium [Pravachol] 80 mg PO HS 08/04/16 [History] Ipratropium/Albuterol Neb [Duoneb] 3 ml IH Q6HR PRN #30 11/13/16 [Rx] Furosemide [Lasix] 20 mg PO BID #60 tablet 11/18/16 [Rx] Lisinopril [Zestril] 2.5 mg PO DAILY #30 tablet 11/18/16 [Rx] Oxygen 3 l NS AD 12/06/16 [History] Metoprolol XL (24 HR) Succ [Toprol Xl] 25 mg PO DAILY #30 12/10/16 [Rx] metFORMIN [Glucophage] 500 mg PO DAILY #30 tablet 12/10/16 [Rx] predniSONE [PredniSONE] 10 mg PO DAILY tab 12/10/16 [Rx] Acetaminophen/Diphenhydramine [Acetaminophen Pm Caplet] 1 tab PO HS 02/04/17 [ History] Digoxin [Lanoxin] 0.125 mg PO MOTUWETHFR 02/04/17 [History] Sennosides [Senna] 8.6 mg PO DAILY PRN 02/04/17 [History] Spironolactone [Aldactone] 12.5 mg PO BID 02/04/17 [History] 3 Allergy/AdvReac Type Severity Reaction Status Date / Time bupropion [From Wellbutrin] Allergy Swelling Verified 12/06/16 11:11 of Lip/Tongue/Throat Sulfa (Sulfonamide Allergy Hives Verified 02/04/17 14:58 Antibiotics) Varenicline [From Chantix] Allergy Swelling Verified 12/06/16 11:11 of Lip/Tongue/Throat Iodinated Contrast- Oral and AdvReac See Verified 11/10/16 15:03 IV Dye Comments [Iodinated Contrast Media - Oral and] tape Allergy Hives Uncoded 02/04/17 14:58 All Systems PM: A 10-system review of systems was performed and is negative for pertinent findings except as documented above in the HPI. Review of systems: All the systems are reviewed everything is benign except the systems and symptoms I mentioned in the history of present illness - Constitutional Vitals: Temp Pulse Resp BP Pulse Ox 98.8 F 76 20 123/72 98 02/04/17 13:43 02/04/17 15:49 02/04/17 16:28 02/04/17 16:28 02/04/17 15:49 General appearance: Present: mild distress, A&O X 3, answers questions appropriately - Head Head exam: Present: atraumatic, normal inspection - Respiratory Respiratory exam: Present: decreased breath sounds, respiratory distress (mild) , wheezes (moderate to severe wheezing). Absent: rales, rhonchi - Cardiovascular Cardiovascular exam: Present: irregular rhythm, +S1, +S2. Absent: systolic murmur - GI/Abdominal GI/Abdominal exam: Present: normal bowel sounds, soft. Absent: rebound, rigid - Extremities Exam Extremities exam: Absent: calf tenderness, pedal edema, tenderness - Back Exam Back exam: Absent: CVA tenderness (L), CVA tenderness (R) - Neurological Exam Neurological exam: Present: alert, oriented X3, no focal deficits - Psychiatric Psychiatric exam: Present: normal affect, normal mood Internal Med - H&P Results - Labs CBC & Chem 7: 02/04/17 13:50 02/04/17 13:50
[2017-02-04] MEDS: Ipratropium/Albuterol Neb 3 ML IH SCH ×2 (19:53→23:16)
[2017-02-04] MEDS: Budesonide/Formoterol 160/4.5 MDI IH SCH (19:53)
[2017-02-04] MEDS ORDERED: (Acetaminophen/Diphenhydramine [Acetaminophen Pm Capl PO SCH (21:00)
[2017-02-04] MEDS ORDERED: Dextrose Gel 15 GM PO PRN ×2 (21:50)
[2017-02-04] MEDS ORDERED: D5% in Water 1,000 ML IVC PRN (21:50)
[2017-02-04] MEDS ORDERED: *HR* Dextrose 50 % in Water (Syg) 50 ML SYRINGE IVP PRN (21:50)
[2017-02-04] MEDS: APIXABAN 5 MG TABLET PO SCH (22:23)
[2017-02-04] MEDS: Insulin LISPRO 300 UNITS/3 ML VIAL SQ SCH (22:23)
[2017-02-04] MEDS: MethylPREDNISolone 40 MG/ML VIAL IVP SCH (23:35)
[2017-02-05] MEDS: Ipratropium/Albuterol Neb 3 ML IH SCH ×5 (04:22→19:59)
[2017-02-05 05:06] LABS: Basophils % 0.1 %; Hematocrit 38.5 % (35.3-44.9); Lymphocytes # 0.9 K/mcL (0.6-4.6); Lymphocytes % 6.2 %; Mean Corpuscular HGB Conc 32.5 g/dL (31.6-35.5); Mean Corpuscular Hemoglobin 30.2 pg (28.0-33.3); Mean Platelet Volume 11.2 fL (9.4-12.4); Monocytes # 0.2 K/mcL (0.0-1.3); Monocytes % 1.5 %; Neutrophils # 12.4 K/mcL (1.6-8.9); Platelet Count 211 K/mcL (140-400); Red Blood Count 4.14 M/mcL (3.82-4.97); Red Cell Distribution Width 13.2 % (11.5-14.5); Segmented Neutrophils % 91.2 %
[2017-02-05 05:07] LABS: Hemoglobin 12.5 g/dL (11.5-15.4)
[2017-02-05 05:27] LABS: Calcium 9.1 mg/dL (8.6-10.8); Magnesium 2.3 mg/dL (1.6-2.6); Potassium 4.7 mEq/L (3.5-4.5)
[2017-02-05] MEDS: Insulin LISPRO 300 UNITS/3 ML VIAL SQ SCH ×4 (09:22→20:59)
[2017-02-05] MEDS: MethylPREDNISolone 40 MG/ML VIAL IVP SCH ×2 (09:24→20:53)
[2017-02-05] MEDS: APIXABAN 5 MG TABLET PO SCH ×2 (09:26→20:52)
[2017-02-05] MEDS: Metoprolol XL (24 HR) Succ 25 MG TAB.ER.24H PO SCH (09:27)
--- NOTE | 2017-02-05 10:32 | Internal Med Progress Note ---
Date of Encounter: 02/05/17 Time of Encounter: 10:15 - Assessment and plan (1) COPD exacerbation Current Visit: No Status: Acute Assessment and plan: Patient has a history of COPD exacerbations where she has been admitted. She is a current smoker. She reports she is feeling better than at admission and is almost back to baseline WBC is improving -continue Rocephin day 2 -decrease solumedrol 40 to BID -Duoneb PRN -bronchodilators -supplemental oxygen 3L -sputum culture pending (2) TREY (acute kidney injury) Current Visit: Yes Status: Acute Assessment and plan: -TREY is improving and is currently 1.12 -IV fluids are being held due to underlying heart failure -lasix and spironolactone are being held -avoid nephrotoxic agents (3) Hypertension Current Visit: No Status: Chronic Assessment and plan: Continue home medications of lisinopril and metoprolol, clopidogrel blood pressure stable troponin trending down Qualifiers: Hypertension type: essential hypertension Qualified Code(s): I10 - Essential (primary) hypertension (4) Nicotine dependence Current Visit: No Status: Chronic Assessment and plan: Patient is a current smoker of 1ppd/ 45 years -nicotine patches ordered Qualifiers: Nicotine product type: cigarettes Substance use status: other nicotine- induced disorder Qualified Code(s): F17.218 - Nicotine dependence, cigarettes , with other nicotine-induced disorders (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 Not an exacerbation -holding diuretics due to TREY -continuing all other medications Qualifiers: Heart failure chronicity: acute on chronic Qualified Code(s): I50.43 - Acute on chronic combined systolic (congestive) and diastolic (congestive) heart failure (6) Atrial fibrillation Current Visit: No Status: Chronic Assessment and plan: History of atrial fibrillation on anticoagulation with Eliquis Rate controlled with metoprolol and digoxin Qualifiers: Atrial fibrillation type: chronic Qualified Code(s): I48.2 - Chronic atrial fibrillation (7) Type 2 diabetes mellitus Current Visit: No Status: Chronic Assessment and plan: Patient has a history of type II diabetes -on medium-dose insulin sliding scale -will continue to monitor glucose Qualifiers: Diabetes mellitus complication status: without complication Diabetes mellitus doorperson or luggage porter insulin use: without doorperson or luggage porter use Qualified Code(s): E11.9 - Type 2 diabetes mellitus without complications (8) DVT prophylaxis Current Visit: No Status: Acute Assessment and plan: On Eliquis - Subjective Interval history: Patient was laying in bed comfortably. She requested a nicotine patch. She has no complaints at this time. - Constitutional Vitals: Temp Pulse Resp BP Pulse Ox 97.8 F 61 19 137/80 99 02/05/17 07:25 02/05/17 07:25 02/05/17 07:25 02/05/17 07:25 02/05/17 07:25 General appearance: Present: mild distress, A&O X 3, answers questions appropriately Exam: Gen.: Vitals noted. No acute distress. AAOx3 HEENT: oropharynx clear, Normocephalic, atraumatic Neck: Supple. No adenopathy. Cardiac: irregular rhythm, no murmur, +S1/S2 Pulmonary: CTA bilaterally, decreased breathe sounds b/l, no wheezes, rales or rhonchi, equal chest expansion Abdomen: soft, nontender, Bowel sounds noted, no guarding MSK: ROM intact, no joint swelling noted Extremities: no BLE edema, nontender calf, no cyanosis or clubbing Neuro: A&Ox3, moves all extremities, no focal deficits Psych: Appropriate mood and behavior Internal Medicine: Result - Labs CBC & Chem 7: 02/05/17 04:02 02/05/17 04:02 Labs: Short CBC 02/05/17 Range/Units 04:02 WBC 13.6 H (4.3-11.1) K/mcL Hgb 12.5 D (11.5-15.4) g/dL Hct 38.5 (35.3-44.9) % Plt Count 211 (140-400) K/mcL Neutrophils # 12.4 H (1.6-8.9) K/mcL BMP 02/05/17 04:02 Sodium 138 Potassium 4.7 H Chloride 103 Carbon Dioxide 26 BUN 27 H Creatinine 1.12 H Glucose 201 H Calcium 9.1 Cardiac Enzymes 02/04/17 02/05/17 Range/Units 21:40 04:02 Troponin I 0.03 0.04 H* (0-0.03) ng/mL - ABG Interpretation ABG results: PT/INR, D-dimer PT 14.2 Seconds (9.4-12.1) H 02/04/17 13:50 Consult Discharge Plan - Plan Referrals: Hal Monroy MD [Primary Care Provider] - 02/12/17 9:00 am
[2017-02-05] MEDS: Budesonide/Formoterol 160/4.5 MDI IH SCH ×2 (11:01→19:59)
[2017-02-05] MEDS: Nicotine 7 MG PATCH.TD24 TD SCH (11:53)
--- NOTE | 2017-02-05 14:57 | Electrocardiograph Report ---
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
[2017-02-05] MEDS: *HR* Digoxin 0.125 MG TABLET PO SCH (17:25)
[2017-02-05] MEDS ORDERED: Acetaminophen 325 MG TABLET PO SCH (21:00)
[2017-02-06] MEDS: Ipratropium/Albuterol Neb 3 ML IH SCH ×7 (00:09→23:47)
[2017-02-06 04:58] LABS: BUN/Creatinine Ratio 36 (6-26); Blood Urea Nitrogen 32 mg/dL (7-20); Calcium 8.8 mg/dL (8.6-10.8); Carbon Dioxide 26 mEq/L (19-29); Chloride 105 mEq/L (98-109); Glucose 173 mg/dL (70-99); Osmolality,Calculated 299 (280-300); Potassium 4.8 mEq/L (3.5-4.5); Sodium 139 mEq/L (136-145); eGFR For African Americans > 60 (> 60); eGFR For Non-African Americans > 60 (> 60)
[2017-02-06 05:03] LABS: Basophils % 0.1 %; Hematocrit 34.9 % (35.3-44.9); Hemoglobin 11.4 g/dL (11.5-15.4); Immature Granulocytes % 1.7 % (0-4); Lymphocytes # 0.8 K/mcL (0.6-4.6); Lymphocytes % 3.3 %; Mean Corpuscular HGB Conc 32.7 g/dL (31.6-35.5); Mean Corpuscular Hemoglobin 30.7 pg (28.0-33.3); Mean Corpuscular Volume 94.1 fL (83.0-100.0); Mean Platelet Volume 11.2 fL (9.4-12.4); Monocytes # 0.5 K/mcL (0.0-1.3); Monocytes % 2.2 %; Platelet Count 209 K/mcL (140-400); Red Blood Count 3.71 M/mcL (3.82-4.97); Red Cell Distribution Width 13.3 % (11.5-14.5); Segmented Neutrophils % 92.7 %
[2017-02-06 05:19] LABS: Neutrophils # 21.9 K/mcL (1.6-8.9)
[2017-02-06 05:48] LABS: Platelet Estimate Normal (Normal)
[2017-02-06] MEDS: Budesonide/Formoterol 160/4.5 MDI IH SCH ×2 (07:54→19:52)
--- NOTE | 2017-02-06 08:27 | Internal Med Progress Note ---
<Jenny Uribe - Last Filed: 02/06/17 16:11> Date of Encounter: 02/06/17 Time of Encounter: 08:26 - Assessment and plan (1) COPD exacerbation Current Visit: No Status: Acute Assessment and plan: Patient has a history of COPD exacerbations where she has been admitted. She is a current smoker. She reports she is feeling better than at admission and is almost back to baseline Patient clinically improving and afebrile, however WBC increased to 23.6 from yesterday's 13.6 -may be due to steroid use vs UTI -urinalysis ordered -chest x-ray ordered -continue Rocephin day 3 -start oral prednisone in place of solumedrol -Duoneb PRN -bronchodilators -supplemental oxygen 3L -sputum culture pending (2) TREY (acute kidney injury) Current Visit: Yes Status: Acute Assessment and plan: -TREY resolved and is now 0.89 -IV fluids are being held due to underlying heart failure -continue lasix -hold spironolactone due to elevated potassium -avoid nephrotoxic agents -continue to monitor renal function (3) Hypertension Current Visit: No Status: Chronic Assessment and plan: Continue home medications of lisinopril, digoxin, Toprol, clopidogrel blood pressure stable Qualifiers: Hypertension type: unspecified Qualified Code(s): I10 - Essential (primary ) hypertension (4) Nicotine dependence Current Visit: No Status: Chronic Assessment and plan: Patient is a current smoker of 1ppd/ 45 years -nicotine patches ordered Qualifiers: Nicotine product type: cigarettes Substance use status: other nicotine- induced disorder Qualified Code(s): F17.218 - Nicotine dependence, cigarettes , with other nicotine-induced disorders (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 Not an exacerbation chest x-ray showed stable cardiomegaly -TREY resolved continuing diuretics -continuing digoxin, lisinopril, Toprol Qualifiers: Heart failure chronicity: acute on chronic Qualified Code(s): I50.43 - Acute on chronic combined systolic (congestive) and diastolic (congestive) heart failure (6) Atrial fibrillation Current Visit: No Status: Chronic Assessment and plan: History of atrial fibrillation on anticoagulation with Eliquis stable heart rate Rate controlled with metoprolol and digoxin Qualifiers: Atrial fibrillation type: chronic Qualified Code(s): I48.2 - Chronic atrial fibrillation (7) Type 2 diabetes mellitus Current Visit: No Status: Chronic Assessment and plan: Patient has a history of type II diabetes -on medium-dose insulin sliding scale -will continue to monitor glucose Qualifiers: Diabetes mellitus complication status: without complication Diabetes mellitus manager long term care insulin use: without manager long term care use Qualified Code(s): E11.9 - Type 2 diabetes mellitus without complications (8) DVT prophylaxis Current Visit: No Status: Acute Assessment and plan: On Eliquis - Subjective Interval history: Patient sitting up in bed eating breakfast alongside her daughter. She stated that she feels like her breathing is improving but not yet back to baseline. She has no complaints at this time. - Constitutional Vitals: Temp Pulse Resp BP Pulse Ox 97.9 F 84 16 109/68 98 02/06/17 07:27 02/06/17 07:27 02/06/17 07:56 02/06/17 07:02/06/17 07:56 General appearance: Present: mild distress, A&O X 3, answers questions appropriately Exam: Gen.: Vitals noted. No acute distress. AAOx3 HEENT: oropharynx clear, Normocephalic, atraumatic Cardiac: irregular, no murmur, +S1/S2 Pulmonary: CTA bilaterally but decreased breathe sounds, no wheezes, rales or rhonchi, equal chest expansion Abdomen: soft, nontender, Bowel sounds noted, no guarding Back: Nontender throughout. MSK: ROM intact, no joint swelling noted Extremities: minimal BLE edema, nontender calf, no cyanosis or clubbing Neuro: A&Ox3, moves all extremities, no focal deficits Psych: Appropriate mood and behavior Internal Medicine: Result - Labs CBC & Chem 7: 02/06/17 04:15 02/06/17 04:15 Labs: Short CBC 02/06/17 Range/Units 04:15 WBC 23.6 H D (4.3-11.1) K/mcL Hgb 11.4 L (11.5-15.4) g/dL Hct 34.9 L (35.3-44.9) % Plt Count 209 (140-400) K/mcL Neutrophils # 21.9 H (1.6-8.9) K/mcL BMP 02/06/17 04:15 Sodium 139 Potassium 4.8 H Chloride 105 Carbon Dioxide 26 BUN 32 H Creatinine 0.89 Glucose 173 H Calcium 8.8 Cardiac Enzymes 02/05/17 Range/Units 10:49 Troponin I 0.03 (0-0.03) ng/mL - ABG Interpretation ABG results: PT/INR, D-dimer PT 14.2 Seconds (9.4-12.1) H 02/04/17 13:50 Consult Discharge Plan - Plan Referrals: Hal Monroy MD [Primary Care Provider] - 02/12/17 9:00 am <Fabio Chi - Last Filed: 02/06/17 19:26> Date of Encounter: 02/06/17 - Constitutional Vitals: Temp Pulse Resp BP Pulse Ox 97.6 F 78 16 130/63 99 02/06/17 15:23 02/06/17 15:23 02/06/17 16:33 02/06/17 15:23 02/06/17 16:33 Internal Medicine: Result - Labs CBC & Chem 7: 02/06/17 04:15 02/06/17 04:15 Labs: Short CBC 02/06/17 Range/Units 04:15 WBC 23.6 H D (4.3-11.1) K/mcL Hgb 11.4 L (11.5-15.4) g/dL Hct 34.9 L (35.3-44.9) % Plt Count 209 (140-400) K/mcL Neutrophils # 21.9 H (1.6-8.9) K/mcL BMP 02/06/17 04:15 Sodium 139 Potassium 4.8 H Chloride 105 Carbon Dioxide 26 BUN 32 H Creatinine 0.89 Glucose 173 H Calcium 8.8 Urine 02/06/17 Range/Units 12:15 Urine Color Yellow (Yellow) Urine Clarity Clear (Clear) Urine pH 6.0 (5.0-8.0) pH Units Ur Specific [place] 1.025 (1.010-1.025) Urine Protein Negative (Neg-Trace) mg/dL Urine Glucose (UA) >=1000 H (Normal) mg/dL - ABG Interpretation ABG results: PT/INR, D-dimer PT 14.2 Seconds (9.4-12.1) H 02/04/17 13:50 - Impressions Impressions Chest X-Ray 02/06/17 07:59 IMPRESSION: No acute process. D/ / 02/06/2017 14:17:22 Romero Salmon MD / Theodora Mccartney Interpreting Provider: Romero Salmon MD - Attending Attestation I examined this patient and my medical decision-making was reviewed with the Resident Physician. I agree with the documented findings, disposition and treatment plan as described except to the extent set forth below. My findings are summarized below: Patient reports improvement in shortness of breath. Lung exam reveals faint expiratory wheezes. Heart is regular. Plan: Obtain chest x-ray and urinalysis to rule out worsening or new infection given significant spike and WBC. Continue inhaled bronchodilators. Taper steroids.
[2017-02-06] MEDS: Metoprolol XL (24 HR) Succ 25 MG TAB.ER.24H PO SCH (08:33)
[2017-02-06] MEDS: Nicotine 7 MG PATCH.TD24 TD SCH (08:33)
[2017-02-06] MEDS: Insulin LISPRO 300 UNITS/3 ML VIAL SQ SCH ×4 (08:33→23:28)
[2017-02-06] MEDS: APIXABAN 5 MG TABLET PO SCH ×2 (08:33→21:38)
[2017-02-06] MEDS: MethylPREDNISolone 40 MG/ML VIAL IVP SCH (08:34)
[2017-02-06 15:58] LABS: Bilirubin,Urine Negative (Negative); Blood,Urine Negative (Negative); Clarity,Urine Clear (Clear); Color,Urine Yellow (Yellow); Glucose,Urine (UA) >=1000 mg/dL (Normal); Ketones,Urine Negative (Negative); Leukocyte Esterase,Urine Negative (Negative); Nitrite,Urine Negative (Negative); Protein,Urine Negative (Neg-Trace); Specific Gravity,Urine 1.025 (1.010-1.025); Urobilinogen,Urine Normal (Normal)
[2017-02-06] MEDS ORDERED: Levofloxacin 500 MG/100 ML 500 MG/100 ML BAG IVPB SCH (17:00)
[2017-02-06] MEDS: Furosemide 20 MG TABLET PO SCH (17:25)
[2017-02-06] MEDS: *HR* Digoxin 0.125 MG TABLET PO SCH (17:25)
[2017-02-07] MEDS: Ipratropium/Albuterol Neb 3 ML IH SCH ×3 (03:45→11:24)
[2017-02-07 04:26] LABS: Basophils % 0.1 %; Hematocrit 34.1 % (35.3-44.9); Hemoglobin 10.9 g/dL (11.5-15.4); Immature Granulocytes % 1.1 % (0-4); Lymphocytes # 1.4 K/mcL (0.6-4.6); Mean Corpuscular Hemoglobin 29.9 pg (28.0-33.3); Mean Corpuscular Volume 93.4 fL (83.0-100.0); Mean Platelet Volume 10.9 fL (9.4-12.4); Monocytes # 1.2 K/mcL (0.0-1.3); Monocytes % 7.2 %; Neutrophils # 14.1 K/mcL (1.6-8.9); Platelet Count 216 K/mcL (140-400); Red Blood Count 3.65 M/mcL (3.82-4.97); Red Cell Distribution Width 13.5 % (11.5-14.5); Segmented Neutrophils % 83.6 %
[2017-02-07 07:00] LABS: BUN/Creatinine Ratio 35 (6-26); Calcium 9.1 mg/dL (8.6-10.8); Carbon Dioxide 30 mEq/L (19-29); Chloride 105 mEq/L (98-109); Glucose 104 mg/dL (70-99); Osmolality,Calculated 299 (280-300); Potassium 4.5 mEq/L (3.5-4.5); Sodium 141 mEq/L (136-145); eGFR For African Americans > 60 (> 60); eGFR For Non-African Americans > 60 (> 60)
[2017-02-07 07:05] LABS: Blood Urea Nitrogen 31 mg/dL (7-20)
[2017-02-07] MEDS: Budesonide/Formoterol 160/4.5 MDI IH SCH (07:58)
--- NOTE | 2017-02-07 08:29 | Discharge Summary ---
<Jenny Uribe - Last Filed: 02/07/17 11:18> Date of Encounter: 02/07/17 Time of Encounter: 08:15 - Discharge Diagnosis (1) COPD exacerbation Priority: Primary Status: Acute (2) TREY (acute kidney injury) Priority: Secondary Status: Acute (3) Hypertension Priority: Secondary Status: Chronic Qualifiers: Hypertension type: unspecified Qualified Code(s): I10 - Essential (primary ) hypertension (4) Nicotine dependence Priority: Secondary Status: Chronic Qualifiers: Nicotine product type: cigarettes Substance use status: other nicotine- induced disorder Qualified Code(s): F17.218 - Nicotine dependence, cigarettes , with other nicotine-induced disorders (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 Priority: Secondary Status: Chronic Qualifiers: Heart failure chronicity: acute on chronic Qualified Code(s): I50.43 - Acute on chronic combined systolic (congestive) and diastolic (congestive) heart failure (6) Atrial fibrillation Priority: Secondary Status: Chronic Qualifiers: Atrial fibrillation type: chronic Qualified Code(s): I48.2 - Chronic atrial fibrillation (7) Type 2 diabetes mellitus Priority: Secondary Status: Chronic Qualifiers: Diabetes mellitus complication status: without complication Diabetes mellitus exterminator termite insulin use: without skilled nursing use Qualified Code(s): E11.9 - Type 2 diabetes mellitus without complications (8) DVT prophylaxis Priority: Secondary Status: Acute - Discharge Medications Prescriptions: Levofloxacin [Levaquin] 500 mg PO DAILY 7 Days #7 tablet predniSONE [PredniSONE] 40 mg PO DAILY 5 Days #10 tablet Home Medications: Apixaban [Eliquis] 5 mg PO BID 08/04/16 [History] Clopidogrel [Plavix] 75 mg PO DAILY 08/04/16 [History] Ferrous Sulfate 325 mg PO DAILY 08/04/16 [History] Fluticasone/Salmeterol [Advair 500-50 Diskus] 1 puff IH BID 08/04/16 [History] Pantoprazole Sodium [Protonix] 40 mg PO DAILY 08/04/16 [History] Pravastatin Sodium [Pravachol] 80 mg PO HS 08/04/16 [History] Ipratropium/Albuterol Neb [Duoneb] 3 ml IH Q6HR PRN #30 11/13/16 [Rx] Furosemide [Lasix] 20 mg PO BID #60 tablet 11/18/16 [Rx] Lisinopril [Zestril] 2.5 mg PO DAILY #30 tablet 11/18/16 [Rx] Oxygen 3 l NS AD 12/06/16 [History] Metoprolol XL (24 HR) Succ [Toprol Xl] 25 mg PO DAILY #30 12/10/16 [Rx] metFORMIN [Glucophage] 500 mg PO DAILY #30 tablet 12/10/16 [Rx] Acetaminophen/Diphenhydramine [Acetaminophen Pm Caplet] 1 tab PO HS 02/04/17 [ History] Digoxin [Lanoxin] 0.125 mg PO MOTUWETHFR 02/04/17 [History] Sennosides [Senna] 8.6 mg PO DAILY PRN 02/04/17 [History] Spironolactone [Aldactone] 12.5 mg PO BID 02/04/17 [History] Levofloxacin [Levaquin] 500 mg PO DAILY 7 Days #7 tablet 02/07/17 [Rx] predniSONE [PredniSONE] 40 mg PO DAILY 5 Days #10 tablet 02/07/17 [Rx] Allergies/Adverse Reactions: 3 Allergy/AdvReac Type Severity Reaction Status Date / Time bupropion [From Wellbutrin] Allergy Swelling Verified 12/06/16 11:11 of Lip/Tongue/Throat Sulfa (Sulfonamide Allergy Hives Verified 02/04/17 14:58 Antibiotics) Varenicline [From Chantix] Allergy Swelling Verified 12/06/16 11:11 of Lip/Tongue/Throat Iodinated Contrast- Oral and AdvReac See Verified 11/10/16 15:03 IV Dye Comments [Iodinated Contrast Media - Oral and] tape Allergy Hives Uncoded 02/04/17 14:58 Date of admission: 02/04/17 16:54 Primary care physician: Hal Monroy MD Discharging clinician: Fabio Chi - Patient Status Disposition: Home, Self-Care Condition: Good Overall status at discharge: patient is back to baseline - Discharge Instructions Instructions: Heart Failure (DC), Acute Respiratory Distress Syndrome (DC) Follow Up With: Hal Monroy MD [Primary Care Provider] - 02/12/17 9:00 am Forms: ED Satisfaction Letter Additional Instructions: Finished the prescription of oral steroids and antibiotics. Follow-up with your family care in about a week return to the hospital if you should worsen - Diet and Activity Activity: resume usual activities as tolerated Diet: advance to your usual diet Hospital course: Ms. Rodarte is a 71 year old female with known PMH of Hypertension, hyperlipidemia , systolic congestive heart failure, Ischemic cardiomyopathy, CAD status post CABG, chronic atrial fibrillation, obstructive sleep apnea on CPAP, COPD with home oxygen dependent-3 L presented to ER from home for evaluation of shortness of breath which is been progressive for the last 3-4 days. She admitted to have cough with clean / whitish expectoration, and wheezing. She stated that she has been admitted to the hospital multiple times for COPD exacerbations. She denied any chest pain, nausea / vomiting, GI / symptoms. Chest x-ray showed stable cardio medically and no other cardiopulmonary process. She was started on IV antibiotics of Rocephin, Solu-Medrol, duonebs, 3L supplemental oxygen. She is also sound to have TREY most likely due to dehydration and diuretic medications. Those medications were stopped and renal function was monitored. She continued to report improvement of breathing. Later IV steroids were changed to oral steroids. Her white blood cell count increased most likely due to steroids. However another chest x-ray was ordered and was normal. Urinalysis was also ordered and was normal. Her antibiotic was changed to Levaquin. The next day her WBC improved. Her daughter was alongside her the past couple days. The patient reported that she felt that she was back to baseline and was ready to be discharged and her daughter agreed. She denied increased shortness of breath, chest pain, palpitations, wheezing, fever, chills , abdominal pain, nausea, vomiting. She was instructed to take antibiotics and oral steroids outpatient and to continue with supplemental oxygen at home. She is to follow up with her primary care physician in about a week. She was given a prescription for a handicap handrail for bathroom per patient's request. The patient stated clear understanding of the treatment plan and all questions were answered. The patient was instructed to return to hospital should she worsen. - Time Spent with Patient Total time spent providing and/or coordinating discharge services: - Constitutional Vitals: Temp Pulse Resp BP Pulse Ox 98.8 F 90 17 131/75 97 02/07/17 07:57 02/07/17 07:57 02/07/17 07:57 02/07/17 07:57 02/07/17 07:57 General appearance: Present: mild distress, A&O X 3, answers questions appropriately Exam: Gen.: Vitals noted. No acute distress. AAOx3 HEENT: oropharynx clear, Normocephalic, atraumatic Neck: Supple. No adenopathy. Cardiac: irregular, no murmur, +S1/S2 Pulmonary: +rhonchi right base CTA bilaterally, no wheezes, rales, equal chest expansion Abdomen: soft, nontender, Bowel sounds noted, no guarding MSK: ROM intact, no joint swelling noted Extremities: no BLE edema, nontender calf, no cyanosis or clubbing Neuro: A&Ox3, moves all extremities Psych: Appropriate mood and behavior <Fabio Chi - Last Filed: 02/07/17 17:28> Date of Encounter: 02/07/17 Date of admission: 02/04/17 16:54 Primary care physician: Hal Monroy MD Hospital course: Ms. Rodarte is a 71 year old female - Time Spent with Patient Total time spent providing and/or coordinating discharge services: - Constitutional Vitals: Temp Pulse Resp BP Pulse Ox 97.6 F 83 16 102/71 95 02/07/17 11:03 02/07/17 11:03 02/07/17 11:03 02/07/17 11:03 02/07/17 11:03 - Attending Attestation I examined this patient and my medical decision-making was reviewed with the Resident Physician, Dr. Uribe. I agree with the documented findings, disposition and treatment plan as described except to the extent set forth below. I have independently obtained history and examined the patient and my findings are summarized below: The patient says her shortness of breath has improved. Lung exam reveals clear breath sounds. Plan: We will discharge her home with prednisone and inhaled bronchodilators. Completed a course of Levaquin. I have encouraged smoking cessation.
[2017-02-07] MEDS: Insulin LISPRO 300 UNITS/3 ML VIAL SQ SCH (08:36)
[2017-02-07] MEDS: Furosemide 20 MG TABLET PO SCH (08:59)
[2017-02-07] MEDS: Nicotine 7 MG PATCH.TD24 TD SCH (08:59)
[2017-02-07] MEDS: Metoprolol XL (24 HR) Succ 25 MG TAB.ER.24H PO SCH (08:59)
[2017-02-07] MEDS: APIXABAN 5 MG TABLET PO SCH (08:59)
[2017-02-07] MEDS ORDERED: predniSONE 20 MG TABLET PO SCH (09:00)
[2017-02-07] MEDS ORDERED: FLUARIX QUAD 2017-18 36MOS UP/PF 0.5 ML SYRINGE IM ONE (10:56)
[2017-02-07 11:07] VITALS: BP 102/71
== END 2017-02-07 12:00 | disposition home or self-care (01) | DRG 190 ==
LOC: EMEROO 13:35 → 2ANU 13:35 → SUATTDRO 16:54
PROVIDERS: ADMIT Family Medicine; ATTEND Internal Medicine

== ENCOUNTER 2017-02-27 16:51 | Observation (INO) ==
[2017-02-27 19:01] LABS: Basophils % 0.2 %; Hematocrit 40.4 % (35.3-44.9); Hemoglobin 13.3 g/dL (11.5-15.4); Immature Granulocytes % 0.7 % (0-4); Lymphocytes % 6.6 %; Mean Corpuscular HGB Conc 32.9 g/dL (31.6-35.5); Mean Corpuscular Hemoglobin 30.6 pg (28.0-33.3); Mean Corpuscular Volume 92.9 fL (83.0-100.0); Monocytes # 0.9 K/mcL (0.0-1.3); Monocytes % 5.5 %; Neutrophils # 13.3 K/mcL (1.6-8.9); Platelet Count 211 K/mcL (140-400); Red Blood Count 4.35 M/mcL (3.82-4.97); Red Cell Distribution Width 13.8 % (11.5-14.5)
[2017-02-27 19:18] LABS: Calcium 9.8 mg/dL (8.6-10.8); Potassium 3.8 mEq/L (3.5-4.5)
[2017-02-27] MEDS ORDERED: Aspirin 325 MG TABLET PO ONE (19:57)
[2017-02-27] MEDS ORDERED: Dexamethasone 4 MG/ML VIAL IVP ONE (20:09)
[2017-02-27] MEDS ORDERED: Ipratropium/Albuterol Neb 3 ML IH ONE (20:09)
--- NOTE | 2017-02-27 20:51 | Emergency Department Note ---
Disposition Clinical Impression: Elevated troponin, TREY (acute kidney injury) Congestive heart failure Qualifiers: Congestive heart failure type: unspecified congestive heart failure type Congestive heart failure chronicity: acute Qualified Code(s): I50.9 - Heart failure, unspecified Atrial fibrillation Qualifiers: Atrial fibrillation type: chronic Qualified Code(s): I48.2 - Chronic atrial fibrillation Disposition: Admitted As Inpatient Condition: Fair General Adult HPI - General Chief complaint: ED Nausea/Vomiting/Diarrhea Stated complaint: N/V/D flu like symptoms Time Seen by Provider: 02/27/17 18:36 Source: patient, family Mode of arrival: ambulatory Limitations: no limitations Nursing Notes Reviewed: Yes Vital Signs Reviewed: Yes - History of Present Illness HPI Narrative: Patient presents to the ED with multiple complaints. Patient reports symptoms about 3 days ago that started making her feel unwell. States that she has a history of CHF and has been coughing more than usual, has also just felt generally fatigued like she has the flu, although family members states that they share drinks all the time and she has not been ill. She also reports some intermittent nausea and vomiting a few days ago but none recently. Does have some chest tightness but she states is from her COPD or CHF, but denies pain or discomfort. Does have some worsening edema in her legs as well. No known fever. Pain Scale: 8 - Related Data Home Medications Medication Instructions Recorded Confirmed Apixaban [Eliquis] 5 mg PO BID 08/04/16 02/27/17 Clopidogrel [Plavix] 75 mg PO DAILY 08/04/16 02/27/17 Ferrous Sulfate 325 mg PO DAILY 08/04/16 02/27/17 Fluticasone/Salmeterol [Advair 1 puff IH BID 08/04/16 02/27/17 500-50 Diskus] Pantoprazole Sodium [Protonix] 40 mg PO DAILY 08/04/16 02/27/17 Pravastatin Sodium [Pravachol] 80 mg PO HS 08/04/16 02/27/17 Oxygen 3 l NS AD 12/06/16 02/27/17 Acetaminophen/Diphenhydramine 1 tab PO HS 02/04/17 02/27/17 [Acetaminophen Pm Caplet] Digoxin [Lanoxin] 0.125 mg PO MOTUWETHFR 02/04/17 02/27/17 Sennosides [Senna] 8.6 mg PO DAILY PRN 02/04/17 02/27/17 Spironolactone [Aldactone] 12.5 mg PO BID 02/04/17 02/27/17 Ipratropium/Albuterol Neb [Duoneb] 3 ml IH Q6HR 02/27/17 02/27/17 predniSONE [PredniSONE] 20 mg PO DAILY 02/27/17 02/27/17 Previous Rx's Medication Instructions Recorded Furosemide [Lasix] 20 mg PO BID #60 tablet 11/18/16 Metoprolol XL (24 HR) Succ [Toprol 25 mg PO DAILY #30 12/10/16 Xl] metFORMIN [Glucophage] 500 mg PO DAILY #30 tablet 12/10/16 Allergies Allergy/AdvReac Type Severity Reaction Status Date / Time bupropion [From Wellbutrin] Allergy Swelling Verified 02/27/17 17:24 of Lip/Tongue/Throat Sulfa (Sulfonamide Allergy Hives Verified 02/27/17 17:24 Antibiotics) Varenicline [From Chantix] Allergy Swelling Verified 02/27/17 17:24 of Lip/Tongue/Throat Iodinated Contrast- Oral and AdvReac See Verified 02/27/17 17:24 IV Dye Comments [Iodinated Contrast Media - Oral and] tape Allergy Hives Uncoded 02/27/17 17:24 Constitutional: Reports: weakness. Denies: fever Cardiovascular: Reports: chest pain, dyspnea on exertion, orthopnea, edema Respiratory: Reports: cough, dyspnea. Denies: sputum production Gastrointestinal: Reports: nausea, vomiting, diarrhea Integumentary: Denies: rash Past Medical History - Past Medical History Attestation: Yes The following information was validated with the patient. Source: patient, old records reviewed, obtained from family Medical history: Reports: arthritis, atrial fibrillation, CHF, COPD, coronary artery disease, diabetes, GI bleed, hypertension, myocardial infarction Surgical history: Reports: angioplasty/stent, coronary bypass (CABG), hysterectomy, pacemaker/AICD Psychiatric history: Reports: anxiety, depression - Social History Smoking Status: Current every day smoker Smokeless Tobacco Status: No Alcohol use: Reports: none Drug use: Reports: none Physical Exam - General Limitations: no limitations General appearance: alert, in no apparent distress - Head Head exam: atraumatic, normocephalic, normal inspection - Eye Eye exam: Present: normal appearance, PERRL, EOMI - ENT ENT exam: normal exam, normal oropharynx, mucous membranes moist - Chest Chest inspection: Present: normal inspection, symmetric chest wall rise - Respiratory Respiratory exam: Present: wheezes. Absent: normal lung sounds bilaterally, respiratory distress - Cardiovascular Cardiovascular exam: Present: regular rate, irregular rhythm - Abdominal Exam Abdominal exam: Present: soft, Non-Tender - Extremities Exam Extremities exam: Present: normal inspection, full ROM, pedal edema (BLE, 2+). Absent: tenderness - Neurological Exam Neurological exam: Present: alert, oriented X3 - Psychiatric Psychiatric exam: Present: normal affect, normal mood - Skin Skin exam: Present: warm, dry, intact, normal color Course Course Narrative: Patient presenting with COPD versus CHF exacerbation. We will workup and likely admit. Vital Signs Temperature 99.4 F 02/27/17 17:20 Pulse Rate 96 02/27/17 17:20 Respiratory Rate 20 02/27/17 17:20 Blood Pressure 106/67 02/27/17 17:20 O2 Sat by Pulse Oximetry 95 02/27/17 17:20 Temperature 97.6 F 02/28/17 04:52 Pulse Rate 84 02/28/17 04:52 Respiratory Rate 16 02/28/17 04:52 Blood Pressure 106/62 02/28/17 04:52 O2 Sat by Pulse Oximetry 94 02/28/17 04:52 Oxygen Delivery Oxygen Delivery Room Air Medical Decision Making - Medical Records Medical records reviewed: Yes I reviewed the patient's medical records. - Lab Data Lab results reviewed: Yes I reviewed the patient's lab results. Result diagrams: 02/28/17 00:40 02/28/17 00:40 Lab Results 02/27/17 02/27/17 02/27/17 Range/Units 18:54 18:54 18:54 WBC 15.3 H (4.3-11.1) K/mcL RBC 4.35 (3.82-4.97) M/mcL Hgb 13.3 (11.5-15.4) g/dL Hct 40.4 (35.3-44.9) % MCV 92.9 (83.0-100.0) fL MCH 30.6 (28.0-33.3) pg MCHC 32.9 (31.6-35.5) g/dL RDW 13.8 (11.5-14.5) % Plt Count 211 (140-400) K/mcL MPV 11.0 (9.4-12.4) fL Immature Gran % 0.7 (0-4) % Seg Neutrophils % 87.0 % Lymphocytes % 6.6 % Monocytes % 5.5 % Eosinophils % 0.0 % Basophils % 0.2 % Neutrophils # 13.3 H (1.6-8.9) K/mcL Lymphocytes # 1.0 (0.6-4.6) K/mcL Monocytes # 0.9 (0.0-1.3) K/mcL Eosinophils # 0.0 (0.0-0.6) K/mcL Basophils # 0.0 (0.0-0.2) K/mcL Sodium 137 (136-145) mEq/L Potassium 3.8 (3.5-4.5) mEq/L Chloride 99 (98-109) mEq/L Carbon Dioxide 26 (19-29) mEq/L BUN 29 H (7-20) mg/dL Creatinine 1.58 H (0.57-1.11) mg/dL Est GFR ( Amer) 39 L (> 60) Est GFR (Non-Af Amer) 32 L (> 60) BUN/Creatinine Ratio 18 (6-26) Glucose 180 H (70-99) mg/dL Calculated Osmolality 294 (280-300) Lactic Acid 2.2 (0.5-2.2) mmol/L Calcium 9.8 (8.6-10.8) mg/dL Troponin I (0-0.03) ng/mL B-Natriuretic Peptide (0-100) pg/mL 02/27/17 02/27/17 Range/Units 18:54 18:54 WBC (4.3-11.1) K/mcL RBC (3.82-4.97) M/mcL Hgb (11.5-15.4) g/dL Hct (35.3-44.9) % MCV (83.0-100.0) fL MCH (28.0-33.3) pg MCHC (31.6-35.5) g/dL RDW (11.5-14.5) % Plt Count (140-400) K/mcL MPV (9.4-12.4) fL Immature Gran % (0-4) % Seg Neutrophils % % Lymphocytes % % Monocytes % % Eosinophils % % Basophils % % Neutrophils # (1.6-8.9) K/mcL Lymphocytes # (0.6-4.6) K/mcL Monocytes # (0.0-1.3) K/mcL Eosinophils # (0.0-0.6) K/mcL Basophils # (0.0-0.2) K/mcL Sodium (136-145) mEq/L Potassium (3.5-4.5) mEq/L Chloride (98-109) mEq/L Carbon Dioxide (19-29) mEq/L BUN (7-20) mg/dL Creatinine (0.57-1.11) mg/dL Est GFR ( Amer) (> 60) Est GFR (Non-Af Amer) (> 60) BUN/Creatinine Ratio (6-26) Glucose (70-99) mg/dL Calculated Osmolality (280-300) Lactic Acid (0.5-2.2) mmol/L Calcium (8.6-10.8) mg/dL Troponin I 0.07 H* (0-0.03) ng/mL B-Natriuretic Peptide 242 H (0-100) pg/mL - Radiology Data Radiology results reviewed: Yes I reviewed the patient's radiology results. Chest X-Ray 02/27/17 17:24 IMPRESSION: No acute cardiopulmonary process. D/ / Spike Jackman MD / Spike Jackman MD Interpreting Provider: Spike Jackman MD Attestation Statement - Attestation Attestation: I examined this patient and my medical decision-making was reviewed with the Resident Physician, Dr. Davies. I agree with the documented findings, disposition and treatment plan as described except to the extent set forth below. Patient is 71-year-old elderly white female history of COPD, CHF who presents to the emergency room brought by her family today with complaints of "not feeling well" for the past 3 days. Family reports that she had nausea and vomiting illness that began Leat Sunday morning and had for the most part resolved by Sunday evening with no development of abdominal pain, diarrhea, and eventual resolution of her nausea vomiting. Patient states she just felt very "flulike" since that time has been complaining of generalized fatigue, ongoing nausea, then began feeling short of breath and noticing some lower extremity edema. On arrival patient vital signs are stable and she was in no acute distress. I agree with patient's physical exam findings as documented. EKG showed atrial fibrillation which using chronically. No acute ischemic changes. Chest x-ray showed no evidence of pulmonary edema. Patient was administered duo nebs and IV steroids. Patient resting relate this time and in mild improvement from arrival. Due to ongoing hypoxia we will admit the patient for further evaluation of what seems to be more likely an acute exacerbation of COPD with mild CHF. Patient agrees with admission to hospital.
[2017-02-27] MEDS ORDERED: Insulin LISPRO 300 UNITS/3 ML VIAL SQ SCH (21:00)
[2017-02-27] MEDS ORDERED: Naloxone 0.4 MG/ML INJ IVP PRN (22:01)
[2017-02-27] MEDS ORDERED: Sennosides 8.6 MG TABLET PO PRN (22:03)
[2017-02-27] MEDS ORDERED: D5% in Water 1,000 ML IVC PRN (22:05)
[2017-02-27] MEDS ORDERED: *HR* Dextrose 50 % in Water (Syg) 50 ML SYRINGE IVP PRN (22:05)
[2017-02-27] MEDS ORDERED: Dextrose Gel 15 GM PO PRN ×2 (22:05)
[2017-02-27] MEDS ORDERED: Spironolactone 25 MG TABLET PO SCH (22:15)
[2017-02-27] MEDS ORDERED: *HR* Digoxin 0.125 MG TABLET PO SCH (22:15)
--- NOTE | 2017-02-27 22:29 | Internal Med History&Physical ---
Date of Encounter: 02/27/17 Time of Encounter: 22:26 Assessment and Plan (1) TREY (acute kidney injury) Current visit: Yes Status: Acute TREY likely due to dehydration as the patient had nausea and vomiting and diarrhea on Sunday. Baseline creatinine 0.89 creatinine today 1.58. Hold nephrotoxic agents Gentle rehydration 0.9% normal saline at 50 mL per hour 500 mL BMP in the morning (2) Combined systolic and diastolic heart failure Current visit: No Status: Chronic Combined systolic and diastolic heart failure. Presented to [facility] today with shortness of breath above baseline since Sunday. She has obvious crackles in the posterior lungs bilaterally. Hold Lasix and Aldactone for now due to TREY, also, as she is stable from a respiratory standpoint on 3 L nasal cannula with an SPO2 of 93%. Continue to monitor Serial troponins Continuous telemetry Qualifiers: Heart failure chronicity: acute on chronic Qualified Code(s): I50.43 - Acute on chronic combined systolic (congestive) and diastolic (congestive) heart failure (3) Elevated troponin Current visit: Yes Status: Acute Elevated troponin throughout this visit. Likely due to acute expiration of CHF but also related to TREY, continue serial troponins. The patient is hemodynamically stable, only complaint is shortness of breath (4) COPD (chronic obstructive pulmonary disease) Current visit: Yes Status: Chronic Chronic history of COPD, she does endorse shortness of breath however I am more apt to believe this is caused by an acute exacerbation of congestive heart failure and the patient does have bilateral lower extremity edema and crackles. Will continue home DuoNeb and Symbicort doses. Continue oxygen at home dose of 3 L nasal cannula titrate as needed Qualifiers: COPD type: unspecified COPD Qualified Code(s): J44.9 - Chronic obstructive pulmonary disease, unspecified (5) Type 2 diabetes mellitus Current visit: Yes Status: Chronic Chronic type 2 diabetes. On metformin at home, discontinue metformin while inpatient. Start LSSIC, AC/HS Accu-Cheks and diabetic/cardiac diet. 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 No obvious source of infection will check a urinalysis this time Qualifiers: Qualified Code(s): D72.829 - Elevated white blood cell count, unspecified (7) DVT prophylaxis Current visit: Yes Status: Acute On Eliquis at home. Continue home dose Internal Medicine - H&P: HPI Chief complaint: Shortness of breath, N/V/D Admitted From: Home Plans for Post Hospital Care: Home History of present illness: Ms. Rodarte is a 71 year old female with a past medical history of COPD, CHF, arthritis, atrial fibrillation, CAD, DM II, previous GI bleed, HTN, MD, angioplasty with stents, CABG, pacer/AICD. She presents to [facility] today with ongoing shortness of breath which began on Sunday. Additionally she reports N/V/D, on Sunday as well but has since stopped at this time. She denies any fevers, chills, sick contacts, or weight gain. Admits to increasing swelling in bilateral lower extremities. She appears to have an TREY , creatinine 1.58 which is increased from baseline, and additionally she has an increase in troponin 0.07. She is suboptimally emergency department for flu and found to be negative, chest x-ray no acute pulmonary process. Past Med Surg Social Fam HX - Past Medical History Medical history: arthritis, atrial fibrillation, CHF, COPD, coronary artery disease, diabetes, GI bleed, hypertension, myocardial infarction Psychiatric history: anxiety, depression - Past Surgical History Surgical History: angioplasty/stent, coronary bypass (CABG), hysterectomy, pacemaker/AICD - Social History Smoking Status: Current every day smoker Smokeless Tobacco Status: No Alcohol use: none Drug use: none - Family History Father Adopted: No Family Member Ethnicity: Non- Living Status: Hx Family Cardiac Disorders: Yes Hx Family Respiratory Disorders: No Hx Family Cancer: No Hx Family GI Disorders: No Hx Family Endocrine Disorder: No Hx Family Neuromuscular Disorders: No Hx Family Neurologic Disorders: No Hx Family HEENT Disorders: No Hx Family Autoimmune Disorders: No Mother Living Status: Hx Family Endocrine Disorder: Yes (DM) Internal Medicine - H&P: Meds Apixaban [Eliquis] 5 mg PO BID 08/04/16 [History] Clopidogrel [Plavix] 75 mg PO DAILY 08/04/16 [History] Ferrous Sulfate 325 mg PO DAILY 08/04/16 [History] Fluticasone/Salmeterol [Advair 500-50 Diskus] 1 puff IH BID 08/04/16 [History] Pantoprazole Sodium [Protonix] 40 mg PO DAILY 08/04/16 [History] Pravastatin Sodium [Pravachol] 80 mg PO HS 08/04/16 [History] Furosemide [Lasix] 20 mg PO BID #60 tablet 11/18/16 [Rx] Oxygen 3 l NS AD 12/06/16 [History] Metoprolol XL (24 HR) Succ [Toprol Xl] 25 mg PO DAILY #30 12/10/16 [Rx] metFORMIN [Glucophage] 500 mg PO DAILY #30 tablet 12/10/16 [Rx] Acetaminophen/Diphenhydramine [Acetaminophen Pm Caplet] 1 tab PO HS 02/04/17 [ History] Digoxin [Lanoxin] 0.125 mg PO MOTUWETHFR 02/04/17 [History] Sennosides [Senna] 8.6 mg PO DAILY PRN 02/04/17 [History] Spironolactone [Aldactone] 12.5 mg PO BID 02/04/17 [History] Ipratropium/Albuterol Neb [Duoneb] 3 ml IH Q6HR 02/27/17 [History] predniSONE [PredniSONE] 20 mg PO DAILY 02/27/17 [History] 3 Allergy/AdvReac Type Severity Reaction Status Date / Time bupropion [From Wellbutrin] Allergy Swelling Verified 02/27/17 17:24 of Lip/Tongue/Throat Sulfa (Sulfonamide Allergy Hives Verified 02/27/17 17:24 Antibiotics) Varenicline [From Chantix] Allergy Swelling Verified 02/27/17 17:24 of Lip/Tongue/Throat Iodinated Contrast- Oral and AdvReac See Verified 02/27/17 17:24 IV Dye Comments [Iodinated Contrast Media - Oral and] tape Allergy Hives Uncoded 02/27/17 17:24 All Systems PM: A 10-system review of systems was performed and is negative for pertinent findings except as documented above in the HPI. - Constitutional Constitutional: no chills, no fever(s), no night sweats - EENT Eyes: no change in vision, no discharge, no pain, no photophobia Ears: no ear discharge, no ear pain, no tinnitus Nose, mouth and throat: no dysphagia, no nasal discharge, no neck pain, no sore throat - Cardiovascular Cardiovascular ROS IM: as per HPI, dyspnea, edema, no chest pain, no diaphoresis , no lightheadedness, no palpitations, no syncope - Respiratory Respiratory: dyspnea, no cough, no wheezing, no pain on inspiration, no chest congestion, no excessive phlegm production - Gastrointestinal Gastrointestinal: as per HPI, diarrhea, nausea, vomiting, no abdominal pain, no hematemesis, no hematochezia, no melena - Genitourinary Genitourinary: no change in urinary stream, no dysuria, no flank pain, no hematuria - Musculoskeletal Musculoskeletal ROS IM: no numbness, no tingling - Integumentary Integumentary IM: no rash, no unusual bruising - Neurological Neurological ROS: no confusion, no convulsions, no focal weakness, no numbness, no tingling, no tremor(s) - Hematologic/Lymphatic Hematologic/Lymphatic: no easy bruising - Constitutional Vitals: Temp Pulse Resp BP Pulse Ox 99.4 F 85 18 124/75 94 02/27/17 17:20 02/27/17 20:47 02/27/17 21:27 02/27/17 21:27 02/27/17 21:06 General appearance: Present: cooperative, A&O X 3, no acute distress, answers questions appropriately - Head Head exam: Present: atraumatic, normocephalic - Eye Eye exam: Present: EOMI, PERRL, conjuntiva pink, sclera anicteric Pupils: Present: PERRL - Respiratory Respiratory exam: Present: CTAB, rales. Absent: accessory muscle use, decreased breath sounds, respiratory distress, rhonchi, wheezes - Cardiovascular Cardiovascular exam: Present: RRR. Absent: diastolic murmur, gallop, JVD, rubs , systolic murmur - GI/Abdominal GI/Abdominal exam: Present: normal bowel sounds, soft, no peritoneal signs. Absent: distended, tenderness - Extremities Exam Extremities exam: Present: normal capillary refill, warm, radial pulses palpable and symmetrical. Absent: calf tenderness, cyanotic, pedal edema, tenderness - Neurological Exam Neurological exam: Present: CN II-XII intact, oriented X3, no focal deficits. Absent: pronater drift, facial droop, speech deficit - Skin Skin exam: Present: dry, intact Internal Med - H&P Results - Labs CBC & Chem 7: 02/27/17 18:54 02/27/17 18:54 - EKG Data Prior EKG available for review: yes When compared to previous EKG: there is no significant change Interpretation IM: normal EKG - Diagnostic Studies Chest x-ray Status: image reviewed by me Additional comments: Negative for acute pulmonary process
[2017-02-27] MEDS ORDERED: 0.9 % Sodium Chloride 500 ML IVC SCH (22:45)
--- NOTE | 2017-02-27 22:54 | Event Note ---
Date of Encounter: 02/27/17 Time of Encounter: 22:50 Patient seen and examined with nurse practitioner. Patient presents with a main complain of shortness of breath. On physical examination, the patient appears to be euovolemic. She has acute kidney injury probably related to recent gastroenteritis 2 days ago in the setting of continued use of diuretics including Lasix and spironolactone. Will gently hydrate cautiously given her LV systolic dysfunction. Will give a total of 500 ml of NS 50 ml/h. She has a white count of 15,000, afebrile, will check urinalysis. Will also check D-dimer because of SOB, since exam does not explain her symptoms, although she is also on eloquis.
[2017-02-27] MEDS: APIXABAN 5 MG TABLET PO SCH (23:37)
[2017-02-28 00:47] LABS: Basophils % 0.1 %; Hematocrit 36.6 % (35.3-44.9); Hemoglobin 12.3 g/dL (11.5-15.4); Immature Platelets 8.2 % (1.1-6.1); Lymphocytes # 0.7 K/mcL (0.6-4.6); Lymphocytes % 4.6 %; Mean Corpuscular HGB Conc 33.6 g/dL (31.6-35.5); Mean Corpuscular Hemoglobin 31.1 pg (28.0-33.3); Mean Corpuscular Volume 92.4 fL (83.0-100.0); Monocytes # 0.4 K/mcL (0.0-1.3); Monocytes % 2.8 %; Neutrophils # 13.2 K/mcL (1.6-8.9); Platelet Count 188 K/mcL (140-400); Red Blood Count 3.96 M/mcL (3.82-4.97); Red Cell Distribution Width 13.7 % (11.5-14.5); Segmented Neutrophils % 91.5 %
[2017-02-28 00:59] LABS: Calcium 9.1 mg/dL (8.6-10.8); Potassium 3.9 mEq/L (3.5-4.5)
[2017-02-28] MEDS: Ipratropium/Albuterol Neb 3 ML IH SCH ×2 (03:55→10:57)
[2017-02-28] MEDS: APIXABAN 5 MG TABLET PO SCH (08:23)
[2017-02-28] MEDS: Insulin LISPRO 300 UNITS/3 ML VIAL SQ SCH ×2 (08:24→11:36)
[2017-02-28] MEDS ORDERED: Metoprolol XL (24 HR) Succ 25 MG TAB.ER.24H PO SCH (09:00)
[2017-02-28] MEDS ORDERED: predniSONE 20 MG TABLET PO SCH (09:00)
[2017-02-28] MEDS ORDERED: 0.9 % Sodium Chloride 1,000 ML IVC SCH (09:30)
[2017-02-28] MEDS ORDERED: Budesonide/Formoterol 160/4.5 MDI IH SCH (10:00)
[2017-02-28 10:07] LABS: Bilirubin,Urine Negative (Negative); Blood,Urine Small (Negative); Clarity,Urine Cloudy (Clear); Color,Urine Yellow (Yellow); Glucose,Urine (UA) 500 mg/dL (Normal); Ketones,Urine Negative (Negative); Leukocyte Esterase,Urine Negative (Negative); Nitrite,Urine Negative (Negative); Protein,Urine 100 mg/dL (Neg-Trace); Specific Gravity,Urine 1.026 (1.010-1.025); Urobilinogen,Urine Normal (Normal)
[2017-02-28 10:20] LABS: Squamous Epithelial Cell,Urine Many per lpf (None-Few); WBC,Urine 0-3 per hpf (0-3)
[2017-02-28 10:21] LABS: Bacteria,Urine Few per hpf (None-Few); Yeast,Urine Few per hpf (None Seen)
[2017-02-28] MEDS ORDERED: 0.9 % Sodium Chloride 500 ML ONE (11:09)
[2017-02-28] MEDS ORDERED: Ipratropium/Albuterol Neb 3 ML IH PRN (11:21)
[2017-02-28 11:29] VITALS: BP 152/67
[2017-02-28] MEDS ORDERED: 0.9 % Sodium Chloride 500 ML IVC SCH (11:30)
--- NOTE | 2017-02-28 13:25 | Discharge Summary ---
Date of Encounter: 02/28/17 Time of Encounter: 13:14 - Discharge Diagnosis (1) TREY (acute kidney injury) Priority: Primary Status: Acute (2) Combined systolic and diastolic heart failure Priority: Secondary Status: Chronic Qualifiers: Heart failure chronicity: chronic Qualified Code(s): I50.42 - Chronic combined systolic (congestive) and diastolic (congestive) heart failure (3) COPD (chronic obstructive pulmonary disease) Priority: Secondary Status: Chronic Qualifiers: COPD type: unspecified COPD Qualified Code(s): J44.9 - Chronic obstructive pulmonary disease, unspecified (4) DVT prophylaxis Priority: Secondary Status: Acute (5) Elevated troponin Priority: Secondary Status: Acute (6) Leukocytosis Priority: Secondary Status: Acute Qualifiers: Qualified Code(s): D72.829 - Elevated white blood cell count, unspecified (7) Type 2 diabetes mellitus Priority: Secondary Status: Chronic Qualifiers: Diabetes mellitus complication status: without complication 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: without alf use Qualified Code(s): E11.9 - Type 2 diabetes mellitus without complications - Discharge Medications Home Medications: Apixaban [Eliquis] 5 mg PO BID 08/04/16 [History] Clopidogrel [Plavix] 75 mg PO DAILY 08/04/16 [History] Ferrous Sulfate 325 mg PO DAILY 08/04/16 [History] Fluticasone/Salmeterol [Advair 500-50 Diskus] 1 puff IH BID 08/04/16 [History] Pantoprazole Sodium [Protonix] 40 mg PO DAILY 08/04/16 [History] Pravastatin Sodium [Pravachol] 80 mg PO HS 08/04/16 [History] Furosemide [Lasix] 20 mg PO BID #60 tablet 11/18/16 [Rx] Oxygen 3 l NS AD 12/06/16 [History] Metoprolol XL (24 HR) Succ [Toprol Xl] 25 mg PO DAILY #30 12/10/16 [Rx] metFORMIN [Glucophage] 500 mg PO DAILY #30 tablet 12/10/16 [Rx] Acetaminophen/Diphenhydramine [Acetaminophen Pm Caplet] 1 tab PO HS 02/04/17 [ History] Digoxin [Lanoxin] 0.125 mg PO MOTUWETHFR 02/04/17 [History] Sennosides [Senna] 8.6 mg PO DAILY PRN 02/04/17 [History] Spironolactone [Aldactone] 12.5 mg PO BID 02/04/17 [History] Ipratropium/Albuterol Neb [Duoneb] 3 ml IH Q6HR 02/27/17 [History] predniSONE [PredniSONE] 20 mg PO DAILY 02/27/17 [History] Allergies/Adverse Reactions: 3 Allergy/AdvReac Type Severity Reaction Status Date / Time bupropion [From Wellbutrin] Allergy Swelling Verified 02/27/17 17:24 of Lip/Tongue/Throat Sulfa (Sulfonamide Allergy Hives Verified 02/27/17 17:24 Antibiotics) Varenicline [From Chantix] Allergy Swelling Verified 02/27/17 17:24 of Lip/Tongue/Throat Iodinated Contrast- Oral and AdvReac See Verified 02/27/17 17:24 IV Dye Comments [Iodinated Contrast Media - Oral and] tape Allergy Hives Uncoded 02/27/17 17:24 Date of admission: 02/27/17 21:15 Primary care physician: Hal Monroy MD Discharging clinician: Desiree Ordaz Anticipated date of discharge: 02/28/17 - Patient Status Disposition: Home Health Service Condition: Good Functional capacity at discharge: uses cane/walker Overall status at discharge: patient is progressing back to baseline - Discharge Instructions Instructions: Heart Failure (DC), Atrial Fibrillation (DC), Chronic Obstructive Pulmonary Disease (DC) Follow Up With: Hal Monroy MD [Primary Care Provider] - 03/06/17 8:30 am (in 1 week) - Diet and Activity Activity: as per physical therapy, increase activity as tolerated Diet: advance to your usual diet, diabetic diet, low fat, low cholesterol, low salt diet Hospital course: Ms. Rodarte is a 71 year old female patient with history of COPD, atrial fibrillation, type 2 diabetes mellitus, CHF, coronary artery disease, hypertension and prior GI bleed presented to the ER with complaints of shortness of breath. She had also had episodes of nausea and vomiting along with diarrhea 2 days back that had since subsided. Blood work showed that she had developed acute kidney injury. She was hospitalized here for observation and treated with gentle IV hydration. Chest x-ray Did not show any acute cardiopulmonary process. Patient did not have any orthopnea or pedal edema concerning for acute CHF. This morning she is feeling a lot better. Denies any shortness of breath. Her renal function is improving. She is clinically stable for discharge. She can resume her home diuretic medications after discharge. Her acute kidney injury was likely due to combination of her symptoms of nausea and vomiting and diarrhea while she was also taking diuretics simultaneously. She did have leukocytosis. No clear source of infection. Most likely it was related to her episode of gastroenteritis. This is also improving. No indication for any antibiotics. - Time Spent with Patient Total time spent providing and/or coordinating discharge services: Greater than 30 minutes (32 min) - Constitutional Vitals: Temp Pulse Resp BP Pulse Ox 98.8 F 62 17 152/67 98 02/28/17 11:22 02/28/17 11:22 02/28/17 11:22 02/28/17 11:22 02/28/17 11:22 General appearance: Present: cooperative, A&O X 3, no acute distress, answers questions appropriately - Neck Neck exam general surgery: Present: supple, trachea midline. Absent: lymphadenopathy - Respiratory Respiratory exam: Present: CTAB. Absent: accessory muscle use, rales, rhonchi, wheezes - Cardiovascular Cardiovascular exam: Present: RRR, +S1, +S2. Absent: diastolic murmur, gallop, rubs, systolic murmur - GI/Abdominal GI/Abdominal exam: Present: normal bowel sounds, soft, no peritoneal signs. Absent: distended, tenderness - Extremities Exam Extremities exam: Present: warm, radial pulses palpable and symmetrical. Absent : calf tenderness, cyanotic, pedal edema - Neurological Exam Neurological exam: Present: CN II-XII intact, oriented X3, no focal deficits. Absent: facial droop, speech deficit - Skin Skin exam: Present: dry, intact
--- NOTE | 2017-02-28 14:08 | Physician Discharge Referral ---
Home Health/Hosp Referral Info Transfer to: Home Health Provider in Charge Post Discharge: PCP - Diagnosis (1) TREY (acute kidney injury) Priority: Primary Status: Acute (2) Combined systolic and diastolic heart failure Priority: Secondary Status: Chronic (3) COPD (chronic obstructive pulmonary disease) Priority: Secondary Status: Chronic (4) DVT prophylaxis Priority: Secondary Status: Acute (5) Elevated troponin Priority: Secondary Status: Acute (6) Leukocytosis Priority: Secondary Status: Acute (7) Type 2 diabetes mellitus Priority: Secondary Status: Chronic - Respiratory Orders Smoking Cessation: Smoking cessation has been advised. For more information, call the [place] Tobacco Quit Line at 5-062-NLFD-NOW. - Diet/Nutrition Diet/Nutrition Orders: Cardiac, No Concentrated Sweets (diabetic) - Activity Activity Orders: Walker - Services Needed Following services are medically necessary services: Nursing, Home Health Aide, Physical Therapy, Occupational Therapy - Transfer Medications Home Medications: Apixaban [Eliquis] 5 mg PO BID 08/04/16 [History] Clopidogrel [Plavix] 75 mg PO DAILY 08/04/16 [History] Ferrous Sulfate 325 mg PO DAILY 08/04/16 [History] Fluticasone/Salmeterol [Advair 500-50 Diskus] 1 puff IH BID 08/04/16 [History] Pantoprazole Sodium [Protonix] 40 mg PO DAILY 08/04/16 [History] Pravastatin Sodium [Pravachol] 80 mg PO HS 08/04/16 [History] Furosemide [Lasix] 20 mg PO BID #60 tablet 11/18/16 [Rx] Oxygen 3 l NS AD 12/06/16 [History] Metoprolol XL (24 HR) Succ [Toprol Xl] 25 mg PO DAILY #30 12/10/16 [Rx] metFORMIN [Glucophage] 500 mg PO DAILY #30 tablet 12/10/16 [Rx] Acetaminophen/Diphenhydramine [Acetaminophen Pm Caplet] 1 tab PO HS 02/04/17 [ History] Digoxin [Lanoxin] 0.125 mg PO MOTUWETHFR 02/04/17 [History] Sennosides [Senna] 8.6 mg PO DAILY PRN 02/04/17 [History] Spironolactone [Aldactone] 12.5 mg PO BID 02/04/17 [History] Ipratropium/Albuterol Neb [Duoneb] 3 ml IH Q6HR 02/27/17 [History] predniSONE [PredniSONE] 20 mg PO DAILY 02/27/17 [History] Allergies/Adverse Reactions: 3 Allergy/AdvReac Type Severity Reaction Status Date / Time bupropion [From Wellbutrin] Allergy Swelling Verified 02/27/17 17:24 of Lip/Tongue/Throat Sulfa (Sulfonamide Allergy Hives Verified 02/27/17 17:24 Antibiotics) Varenicline [From Chantix] Allergy Swelling Verified 02/27/17 17:24 of Lip/Tongue/Throat Iodinated Contrast- Oral and AdvReac See Verified 02/27/17 17:24 IV Dye Comments [Iodinated Contrast Media - Oral and] tape Allergy Hives Uncoded 02/27/17 17:24 Certification: Further, I certify that my clinical findings support that this patient is homebound (i.e. absences from home require considerable and taxing effort and are for medical reasons or [employer] services or infrequently or short duration when for other reasons) because: Homebound Reason: Patient requires assistance of a person or device to safely leave home Attestation: My signature below is to certify that this patient is under my care and that I, or nurse practitioner, or a physician's music library assistant working with me, has a face-to -face encounter with this patient.
[2017-02-28] MEDS ORDERED: ACETAMINOPHEN PM PO SCH (21:00)
== END 2017-02-28 16:15 | disposition home health service (06) ==
LOC: 2ANU 16:51 → EMEROO 16:51 → 2ANU 21:43
PROVIDERS: ADMIT Nurse Practitioner; ATTEND Internal Medicine

== ENCOUNTER 2017-03-13 12:40 | Inpatient (IN) ==
[2017-03-13 13:29] LABS: Basophils % 0.2 %; Hematocrit 39.2 % (35.3-44.9); Hemoglobin 12.9 g/dL (11.5-15.4); Immature Granulocytes % 1.2 % (0-4); Lymphocytes # 1.2 K/mcL (0.6-4.6); Lymphocytes % 5.5 %; Mean Corpuscular HGB Conc 32.9 g/dL (31.6-35.5); Mean Corpuscular Hemoglobin 30.2 pg (28.0-33.3); Mean Corpuscular Volume 91.8 fL (83.0-100.0); Mean Platelet Volume 10.4 fL (9.4-12.4); Monocytes # 0.5 K/mcL (0.0-1.3); Monocytes % 2.5 %; Neutrophils # 19.4 K/mcL (1.6-8.9); Platelet Count 358 K/mcL (140-400); Red Blood Count 4.27 M/mcL (3.82-4.97); Red Cell Distribution Width 14.6 % (11.5-14.5); Segmented Neutrophils % 90.6 %
[2017-03-13 13:35] LABS: INR 1.5; Prothrombin Time 16.3 Seconds (9.4-12.1)
[2017-03-13 13:37] LABS: Activated Partial Thrombo Time 29.4 Seconds (26.0-36.0)
[2017-03-13 13:41] LABS: Calcium 9.3 mg/dL (8.6-10.8); Potassium 4.7 mEq/L (3.5-4.5)
[2017-03-13] MEDS ORDERED: *HR* Heparin 5,000 UNIT/ML VIAL IVP ONE (14:01)
[2017-03-13] MEDS ORDERED: 0.9 % Sodium Chloride 1,000 ML IVC ONE (14:01)
[2017-03-13] MEDS ORDERED: *HR* Heparin 5,000 UNIT/ML VIAL IVP PRN ×2 (14:01)
[2017-03-13] MEDS ORDERED: Aspirin 81 MG TAB.CHEW PO ONE (14:01)
[2017-03-13 14:38] LABS: Digoxin 1.1 ng/mL (0.8-2.0)
[2017-03-13 14:44] LABS: Bilirubin,Urine Negative (Negative); Blood,Urine Large (Negative); Clarity,Urine Clear (Clear); Color,Urine Yellow (Yellow); Glucose,Urine (UA) Normal (Normal); Ketones,Urine Negative (Negative); Leukocyte Esterase,Urine Negative (Negative); Nitrite,Urine Negative (Negative); PH,Urine 5.5 pH Units (5.0-8.0); Protein,Urine Negative (Neg-Trace); Specific Gravity,Urine 1.018 (1.010-1.025); Urobilinogen,Urine Normal (Normal)
[2017-03-13 14:47] LABS: Bacteria,Urine None Seen per hpf (None-Few); Squamous Epithelial Cell,Urine Many per lpf (None-Few); WBC,Urine 0-3 per hpf (0-3)
[2017-03-13] MEDS: Heparin 25,000 UNIT/500 ML D5W 25,000 UNIT/500 ML MLS IVC SCH (15:02)
[2017-03-13 15:12] LABS: Hyaline Casts,Urine Few per lpf (None-Few); Mucus,Urine Moderate (Few); RBC,Urine 0-3 per hpf (0-3)
--- NOTE | 2017-03-13 15:29 | Emergency Department Note ---
Disposition Clinical Impression: Chest pain, rule out acute myocardial infarction, Elevated troponin Dyspnea Qualifiers: Dyspnea type: other forms of dyspnea Qualified Code(s): R06.09 - Other forms of dyspnea Leukocytosis Qualifiers: Leukocytosis type: unspecified Qualified Code(s): D72.829 - Elevated white blood cell count, unspecified Disposition: Admitted As Inpatient Condition: Good Referrals: Hal Monroy MD [Primary Care Provider] - Chest Pain HPI - General Chief Complaint: ED Chest Pain Stated Complaint: difibullator is going off Time Seen by Provider: 03/13/17 12:44 Source: patient, family Mode of arrival: ambulatory Limitations: no limitations Vital Signs Reviewed: Yes Nursing Notes Reviewed: Yes - History of Present Illness HPI Narrative: 71-year-old female presents to emergency department with concerns of intermittent chest pain throughout the night. Patient states that her pacemaker /defibrillator has been making noises intermittently throughout the night. Patient was originally concerned about the defibrillator possibly shocking her however when questioned she denies feeling pain with the associated noises from the pacemaker. Patient does however describe a sternal and left lower chest pain which has been present intermittently over the past 24 hours. Patient states that she has felt unwell over the past week, with multiple episodes of nonproductive cough. Patient reports a fever 4 days ago but did not none since that time. She has not taken any Tylenol, ibuprofen or other antipyretics prior to arrival. Patient states that she does feeling increasing dyspneic with minimal exertion over the past few days. She does have a history of cardiac disease, currently taking Plavix and Ian Wiss. She has a history of previous stent. She also has a history of chronic atrial fibrillation with RVR. Severity scale (1-10): 5 - Related Data Home Medications Medication Instructions Recorded Confirmed Apixaban [Eliquis] 5 mg PO BID 08/04/16 02/27/17 Clopidogrel [Plavix] 75 mg PO DAILY 08/04/16 02/27/17 Ferrous Sulfate 325 mg PO DAILY 08/04/16 02/27/17 Fluticasone/Salmeterol [Advair 1 puff IH BID 08/04/16 02/27/17 500-50 Diskus] Pantoprazole Sodium [Protonix] 40 mg PO DAILY 08/04/16 02/27/17 Pravastatin Sodium [Pravachol] 80 mg PO HS 08/04/16 02/27/17 Oxygen 3 l NS AD 12/06/16 02/27/17 Acetaminophen/Diphenhydramine 1 tab PO HS 02/04/17 02/27/17 [Acetaminophen Pm Caplet] Digoxin [Lanoxin] 0.125 mg PO MOTUWETHFR 02/04/17 02/27/17 Sennosides [Senna] 8.6 mg PO DAILY PRN 02/04/17 02/27/17 Spironolactone [Aldactone] 12.5 mg PO BID 02/04/17 02/27/17 Ipratropium/Albuterol Neb [Duoneb] 3 ml IH Q6HR 02/27/17 02/27/17 predniSONE [PredniSONE] 20 mg PO DAILY 02/27/17 02/27/17 Previous Rx's Medication Instructions Recorded Furosemide [Lasix] 20 mg PO BID #60 tablet 11/18/16 Metoprolol XL (24 HR) Succ [Toprol 25 mg PO DAILY #30 12/10/16 Xl] metFORMIN [Glucophage] 500 mg PO DAILY #30 tablet 12/10/16 Allergies Allergy/AdvReac Type Severity Reaction Status Date / Time bupropion [From Wellbutrin] Allergy Swelling Verified 02/27/17 17:24 of Lip/Tongue/Throat Sulfa (Sulfonamide Allergy Hives Verified 02/27/17 17:24 Antibiotics) Varenicline [From Chantix] Allergy Swelling Verified 02/27/17 17:24 of Lip/Tongue/Throat Iodinated Contrast- Oral and AdvReac See Verified 02/27/17 17:24 IV Dye Comments [Iodinated Contrast Media - Oral and] tape Allergy Hives Uncoded 02/27/17 17:24 All systems ED: reviewed and negative except as stated. Review of Systems: As Per HPI Constitutional: Reports: fever, weakness Cardiovascular: Reports: chest pain, palpitations, dyspnea on exertion. Denies : syncope Respiratory: Reports: cough, dyspnea. Denies: wheezes, hemoptysis, stridor Gastrointestinal: Denies: abdominal pain, nausea, vomiting Chest Pain PMH - Past Medical History Medical history: Reports: arthritis, atrial fibrillation, CHF, COPD, coronary artery disease, diabetes, GI bleed, hypertension, myocardial infarction Surgical history: Reports: angioplasty/stent, coronary bypass (CABG), hysterectomy, pacemaker/AICD Psychiatric history: Reports: anxiety, depression - Social History Smoking Status: Current every day smoker Alcohol use: Reports: none Drug use: Reports: none Physical Exam General: Alert and in no acute distress Skin: Warm, dry, intact Head: Normocephalic and atraumatic Neck: Supple, trachea midline and no tenderness Cardiovascular: Irregularly irregular and tachycardic, no murmur, normal perfusion Respiratory: CTAB, no wheezing, cough, or respiratory distress Musculoskeletal: Normal strength, no tenderness, swelling or deformity GI: Soft, nontender, nondistended. Bowel sounds present Neuro: A&O to person, place, time and situation. No focal deficits noted on exam Psychiatric: cooperative and appropriate mood and affect. Course Vital Signs Temperature 98.2 F 03/13/17 12:57 Pulse Rate 106 03/13/17 12:57 Respiratory Rate 20 03/13/17 12:57 Blood Pressure 117/98 03/13/17 12:57 O2 Sat by Pulse Oximetry 98 03/13/17 12:57 Temperature 98.2 F 03/13/17 12:57 Pulse Rate 107 03/13/17 14:54 Respiratory Rate 20 03/13/17 12:57 Blood Pressure 136/82 03/13/17 14:54 O2 Sat by Pulse Oximetry 96 03/13/17 14:54 Oxygen Delivery Oxygen Delivery Nasal Cannula Chest Pain - MDM Narrative Medical decision making narrative: Patient does have an elevated troponin which is higher than her previous levels. Patient is having chest pain and will be started on heparin. Patient is currently taking Eliquis which makes PE less likely. Patient is tachycardic with A. fib with RVR which is chronic for her. Patient does have an elevated leukocytosis and I am concerned about possible HCAP With her history of generalized malaise, fever and cough. Patient will be started on antibiotics in the emergency department for treatment of possible early pneumonia. Patient given heparin in the emergency department for possible and STEMI secondary to chest pain. Patient is already on anticoagulant however I will start the heparin drip until we can further evaluate her symptoms. I did not give the heparin bolus however. - Medical Records Medical records reviewed: Yes I reviewed the patient's medical records. - Lab Data Lab results reviewed: Yes I reviewed the patient's lab results. Result diagrams: 03/13/17 13:22 03/13/17 13:22 Lab Results 03/13/17 03/13/17 03/13/17 Range/Units 13:22 13:22 13:22 WBC 21.4 H (4.3-11.1) K/mcL RBC 4.27 (3.82-4.97) M/mcL Hgb 12.9 (11.5-15.4) g/dL Hct 39.2 (35.3-44.9) % MCV 91.8 (83.0-100.0) fL MCH 30.2 (28.0-33.3) pg MCHC 32.9 (31.6-35.5) g/dL RDW 14.6 H (11.5-14.5) % Plt Count 358 (140-400) K/mcL MPV 10.4 (9.4-12.4) fL Immature Gran % 1.2 (0-4) % Seg Neutrophils % 90.6 % Lymphocytes % 5.5 % Monocytes % 2.5 % Eosinophils % 0.0 % Basophils % 0.2 % Neutrophils # 19.4 H (1.6-8.9) K/mcL Lymphocytes # 1.2 (0.6-4.6) K/mcL Monocytes # 0.5 (0.0-1.3) K/mcL Eosinophils # 0.0 (0.0-0.6) K/mcL Basophils # 0.0 (0.0-0.2) K/mcL PT 16.3 H (9.4-12.1) Seconds INR 1.5 APTT 29.4 (26.0-36.0) Seconds Sodium 134 L (136-145) mEq/L Potassium 4.7 H (3.5-4.5) mEq/L Chloride 95 L (98-109) mEq/L Carbon Dioxide 25 (19-29) mEq/L BUN 31 H (7-20) mg/dL Creatinine 1.42 H (0.57-1.11) mg/dL Est GFR ( Amer) 44 L (> 60) Est GFR (Non-Af Amer) 36 L (> 60) BUN/Creatinine Ratio 22 (6-26) Glucose 195 H (70-99) mg/dL Calculated Osmolality 290 (280-300) Calcium 9.3 (8.6-10.8) mg/dL Troponin I (0-0.03) ng/mL Urine Color (Yellow) Urine Clarity (Clear) Urine pH (5.0-8.0) pH Units Ur Specific Brewster (1.010-1.025) Urine Protein (Neg-Trace) mg/dL Urine Glucose (UA) (Normal) mg/dL Urine Ketones (Negative) mg/dL Urine Blood (Negative) Urine Nitrite (Negative) Urine Bilirubin (Negative) Urine Urobilinogen (Normal) mg/dL Ur Leukocyte Esterase (Negative) Urine Microscopic RBC (0-3) per hpf Urine Microscopic WBC (0-3) per hpf Ur Squamous Epith Cells (None-Few) per lpf Urine Bacteria (None-Few) per hpf Hyaline Casts (None-Few) per lpf Urine Mucus (Few) Ur Culture Indicated? (NO) Digoxin 1.1 (0.8-2.0) ng/mL 03/13/17 03/13/17 Range/Units 13:22 14:25 WBC (4.3-11.1) K/mcL RBC (3.82-4.97) M/mcL Hgb (11.5-15.4) g/dL Hct (35.3-44.9) % MCV (83.0-100.0) fL MCH (28.0-33.3) pg MCHC (31.6-35.5) g/dL RDW (11.5-14.5) % Plt Count (140-400) K/mcL MPV (9.4-12.4) fL Immature Gran % (0-4) % Seg Neutrophils % % Lymphocytes % % Monocytes % % Eosinophils % % Basophils % % Neutrophils # (1.6-8.9) K/mcL Lymphocytes # (0.6-4.6) K/mcL Monocytes # (0.0-1.3) K/mcL Eosinophils # (0.0-0.6) K/mcL Basophils # (0.0-0.2) K/mcL PT (9.4-12.1) Seconds INR APTT (26.0-36.0) Seconds Sodium (136-145) mEq/L Potassium (3.5-4.5) mEq/L Chloride (98-109) mEq/L Carbon Dioxide (19-29) mEq/L BUN (7-20) mg/dL Creatinine (0.57-1.11) mg/dL Est GFR ( Amer) (> 60) Est GFR (Non-Af Amer) (> 60) BUN/Creatinine Ratio (6-26) Glucose (70-99) mg/dL Calculated Osmolality (280-300) Calcium (8.6-10.8) mg/dL Troponin I 0.11 H* (0-0.03) ng/mL Urine Color Yellow (Yellow) Urine Clarity Clear (Clear) Urine pH 5.5 (5.0-8.0) pH Units Ur Specific Brewster 1.018 (1.010-1.025) Urine Protein Negative (Neg-Trace) mg/dL Urine Glucose (UA) Normal (Normal) mg/dL Urine Ketones Negative (Negative) mg/dL Urine Blood Large H (Negative) Urine Nitrite Negative (Negative) Urine Bilirubin Negative (Negative) Urine Urobilinogen Normal (Normal) mg/dL Ur Leukocyte Esterase Negative (Negative) Urine Microscopic RBC 0-3 (0-3) per hpf Urine Microscopic WBC 0-3 (0-3) per hpf Ur Squamous Epith Cells Many H (None-Few) per lpf Urine Bacteria None Seen (None-Few) per hpf Hyaline Casts Few (None-Few) per lpf Urine Mucus Moderate H (Few) Ur Culture Indicated? NO (NO) Digoxin (0.8-2.0) ng/mL - Radiology Data Radiology results reviewed: Yes I reviewed the patient's radiology results. - EKG Data EKG attestation: Yes I reviewed and interpreted this EKG. EKG results narrative: EKG shows atrial fibrillation with a rapid ventricular response of [address] depressions in leads V3 through V6 as well as in lead 2 without evidence of STEMI. Heart Score - Score History: Moderately Suspicious EKG: Non Specific repolarisation Disturbance Age: Greater than 65 Risk Factors: Equal/Greater than 3 risk factor or history of atherosclerotic disease Troponin: 1-3x normal limit HEART Score Total: 7 Critical Care Time Critical Care Time: Yes Total Critical Care Time: 65 Attestation: The high probability of a clinically significant, sudden or life threatening deterioration of the cardiovascular and respiratory system(s) required my full and direct attention, intervention and personal management. The aggregate critical care time was 65 minutes. This time is in addition to time spent performing reported procedures but includes the following: x Data Review and interpretation x Patient assessment and monitoring of vital signs x Documentation x Medication orders and management
[2017-03-13] MEDS ORDERED: Azithromycin 500 MG in D5% in Water 250 ML IVPB ONE (15:34)
[2017-03-13] MEDS ORDERED: Vancomycin 1,000 MG in D5% in Water 250 ML IVPB ONE (15:34)
[2017-03-13] MEDS ORDERED: Piperacillin/Tazobactam 4.5 GM in D5% in Water (Mini-Bag+) 100 ML IVPB ONE (15:34)
--- NOTE | 2017-03-13 18:44 | Internal Med History&Physical ---
Date of Encounter: 03/13/17 Time of Encounter: 18:15 Assessment and Plan (1) Aspiration into airway Current visit: Yes Status: Acute speech therapy evaluation, may need barium swallow study Qualifiers: Qualified Code(s): T17.908A - Unspecified foreign body in respiratory tract, part unspecified causing other injury, initial encounter (2) COPD exacerbation Current visit: No Status: Acute Duonep aerosol treatment every 4 hour, add steroid. Add Zosyn and azithromycin to cover for aspiration pneumonia and community-acquired pneumonia, aspiration precaution (3) Acute and chronic respiratory failure Current visit: No Status: Resolved Qualifiers: Respiratory failure complication: hypoxia Qualified Code(s): J96.21 - Acute and chronic respiratory failure with hypoxia (4) Nicotine dependence Current visit: No Status: Chronic Counseling on tobacco cessation, nicotine patch Qualifiers: Nicotine product type: cigarettes Substance use status: other nicotine- induced disorder Qualified Code(s): F17.218 - Nicotine dependence, cigarettes , with other nicotine-induced disorders (5) COPD (chronic obstructive pulmonary disease) Current visit: No Status: Chronic Qualifiers: COPD type: unspecified COPD Qualified Code(s): J44.9 - Chronic obstructive pulmonary disease, unspecified (6) Type 2 diabetes mellitus Current visit: No Status: Chronic Insulin sliding scale Qualifiers: Diabetes mellitus complication status: without complication Diabetes mellitus long-term insulin use: without long-term use Qualified Code(s): E11.9 - Type 2 diabetes mellitus without complications (7) Ischemic cardiomyopathy Current visit: No Status: Chronic (8) Elevated troponin Current visit: Yes Status: Acute Continue nate aspirin, cardiology evaluated the patient status is most likely secondary to COPD based on ER team Internal Medicine - H&P: HPI Chief complaint: SOB, Cough , Difficulty swallowing History of present illness: Ms. Rodarte is a 71 year old female with past medical history of COPD, coronary artery disease status post coronary artery bypass graft and stent. Patient was in her normal state of health until 1 week ago. Devastated over last week patient has progressive weakness. Over last 2 days patient has worsening of her shortness of breath patient has a dry cough. She has some trouble swallowing some kind of food occasionally feel for stock in her throat and sometimes coughing with eating, patient had fever MAXIMUM TEMPERATURE 101 last week. Last night patient started to have fever midsternal left-sided chest pain 10 out of 10 in severity refused to come to the emergency room. Patient finally came to emergency room for further evaluation. Devastated over last 24 hour patient denies any chest pain or shortness of breath now. Patient noticed some noise from her AICD. AICD interrogation detected no firing. Past Med Surg Social Fam HX - Past Medical History Medical history: arthritis, atrial fibrillation, CHF, COPD, coronary artery disease, diabetes, hypertension, myocardial infarction Psychiatric history: anxiety, depression - Past Surgical History Surgical History: angioplasty/stent (2 stent), coronary bypass (CABG), hysterectomy, pacemaker/AICD - Social History Smoking Status: Current every day smoker (Noncontributory) Smokeless Tobacco Status: No Alcohol use: none Drug use: none - Family History Father Adopted: No Family Member Ethnicity: Non- Living Status: Hx Family Cardiac Disorders: Yes Hx Family Respiratory Disorders: No Hx Family Cancer: No Hx Family GI Disorders: No Hx Family Endocrine Disorder: No Hx Family Neuromuscular Disorders: No Hx Family Neurologic Disorders: No Hx Family HEENT Disorders: No Hx Family Autoimmune Disorders: No Mother Living Status: Hx Family Endocrine Disorder: Yes (DM) Internal Medicine - H&P: Meds Apixaban [Eliquis] 5 mg PO BID 08/04/16 [History] Clopidogrel [Plavix] 75 mg PO DAILY 08/04/16 [History] Ferrous Sulfate 325 mg PO DAILY 08/04/16 [History] Fluticasone/Salmeterol [Advair 500-50 Diskus] 1 puff IH BID 08/04/16 [History] Pantoprazole Sodium [Protonix] 40 mg PO DAILY 08/04/16 [History] Pravastatin Sodium [Pravachol] 80 mg PO HS 08/04/16 [History] Oxygen 3 l NS CONT 12/06/16 [History] Metoprolol XL (24 HR) Succ [Toprol Xl] 25 mg PO DAILY #30 12/10/16 [Rx] metFORMIN [Glucophage] 500 mg PO DAILY #30 tablet 12/10/16 [Rx] Acetaminophen/Diphenhydramine [Acetaminophen Pm Caplet] 2 tab PO HS 02/04/17 [ History] Digoxin [Lanoxin] 0.125 mg PO MOTUWETHFR 02/04/17 [History] Sennosides [Senna] 8.6 mg PO DAILY PRN 02/04/17 [History] Spironolactone [Aldactone] 12.5 mg PO BID 02/04/17 [History] Ipratropium/Albuterol Neb [Duoneb] 3 ml IH Q6HR 02/27/17 [History] Furosemide [Lasix] 40 mg PO BID 03/13/17 [History] predniSONE [PredniSONE] 10 mg PO DAILY 03/13/17 [History] 3 Allergy/AdvReac Type Severity Reaction Status Date / Time bupropion [From Wellbutrin] Allergy Swelling Verified 02/27/17 17:24 of Lip/Tongue/Throat Sulfa (Sulfonamide Allergy Hives Verified 02/27/17 17:24 Antibiotics) Varenicline [From Chantix] Allergy Swelling Verified 02/27/17 17:24 of Lip/Tongue/Throat Iodinated Contrast- Oral and AdvReac See Verified 02/27/17 17:24 IV Dye Comments [Iodinated Contrast Media - Oral and] tape Allergy Hives Uncoded 02/27/17 17:24 All Systems PM: A 10-system review of systems was performed and is negative for pertinent findings except as documented above in the HPI. - Constitutional Vitals: Temp Pulse Resp BP Pulse Ox 98.2 F 100 16 98/58 97 03/13/17 12:57 03/13/17 16:41 03/13/17 17:55 03/13/17 17:55 03/13/17 16:41 General appearance: Present: pleasant, no acute distress, obese - Head Head exam: Present: atraumatic, normocephalic - Neck Neck exam general surgery: Present: supple, trachea midline. Absent: lymphadenopathy - Respiratory Respiratory exam: Present: decreased breath sounds, CTAB, rales (Bilateral lung base). Absent: accessory muscle use, rhonchi, wheezes - Cardiovascular Cardiovascular exam: Present: RRR, +S1, +S2. Absent: diastolic murmur, gallop, rubs, systolic murmur - GI/Abdominal GI/Abdominal exam: Present: normal bowel sounds, soft, tenderness (Left upper quadrant tenderness), no peritoneal signs. Absent: distended - Extremities Exam Extremities exam: Present: calf tenderness (Right calf tenderness), warm, radial pulses palpable and symmetrical. Absent: cyanotic, pedal edema Internal Med - H&P Results - Labs CBC & Chem 7: 03/13/17 13:22 03/13/17 13:22
[2017-03-13] MEDS ORDERED: 0.9 % Sodium Chloride 1,000 ML IVC SCH (19:00)
[2017-03-13] MEDS ORDERED: Dextrose Gel 15 GM PO PRN ×2 (19:20)
[2017-03-13] MEDS ORDERED: D5% in Water 1,000 ML IVC PRN (19:20)
[2017-03-13] MEDS ORDERED: *HR* Dextrose 50 % in Water (Syg) 50 ML SYRINGE IVP PRN (19:20)
[2017-03-13] MEDS ORDERED: Sennosides 8.6 MG TABLET PO PRN (19:29)
[2017-03-13] MEDS: Budesonide/Formoterol 160/4.5 MDI IH SCH (20:36)
[2017-03-13] MEDS ORDERED: APIXABAN 5 MG TABLET PO SCH (21:00)
[2017-03-13] MEDS: Thiamine (B-1) 100 MG TABLET PO SCH (21:28)
[2017-03-13] MEDS: Spironolactone 25 MG TABLET PO SCH (21:28)
[2017-03-13] MEDS: *HR* Digoxin 0.125 MG TABLET PO SCH (21:28)
[2017-03-13] MEDS: Insulin LISPRO 300 UNITS/3 ML VIAL SQ SCH (21:29)
--- NOTE | 2017-03-14 08:11 | Electrocardiograph Report ---
[place] [id number] Test Date: 2017-03-13 Pat Name: Juan Rodarte Department: 103 Room: 2N15 Gender: F [employer]: : [id number] Requested By: Richie Martinez Order Number: [id number] Reading MD: Marguerite Sun Measurements Intervals [place] Rate: 107 P: MO: 0 QRS: -25 QRSD: 95 T: 134 QT: 330 QTc: 393 Interpretive Statements ATRIAL FIBRILLATION WITH RAPID VENTRICULAR RESPONSE LEFT AXIS DEVIATION MODERATE VOLTAGE CRITERIA FOR LVH, CONSIDER NORMAL VARIANT ST DEVIATION AND MODERATE T-WAVE ABNORMALITY, CONSIDER LATERAL ISCHEMIA Electronically Signed On 03-14-2017 8:10:15 EDT by Marguerite Sun
[2017-03-14] MEDS: Budesonide/Formoterol 160/4.5 MDI IH SCH ×2 (08:25→20:00)
--- NOTE | 2017-03-14 09:28 | Internal Med Progress Note ---
<Juan Browning - Last Filed: 03/14/17 17:41> Date of Encounter: 03/14/17 Time of Encounter: 09:45 - Assessment and plan (1) COPD exacerbation Current Visit: Yes Status: Acute Assessment and plan: Patient continues to have subjective shortness of air, despite reassuring saturations on 1-2L O2 via NC patient currently home 02 dependent; no respiratory distress on exam, no wheezes , no cyanosis, or enhanced respiratory effort There has been some concern that patient may have an early pneumonia secondary to aspiration -will continue patient IV antibiotics and reassess in the morning for improving shortness of air -ST swallow assessment and barium swallow negative for aspiration or heightened risk -no further eval/intervention necessary at this time -will cont IV abx and will reassess subjective dyspnea in AM (2) Elevated troponin Current Visit: Yes Status: Acute Assessment and plan: stable elevations without significant uptrending cardiology consulting on case states ACS unlikely within clinical context per cardiology, cont heparin infusion; unlikely to perform LHC due to patient preference and low clinical suspicion will follow cardiology for further planning (3) Congestive heart failure Current Visit: No Status: Suspected Assessment and plan: chronic no acute findings of volume overload BNP mildly elevated in 200s Limited ECHO pending per cardio order Qualifiers: Congestive heart failure type: unspecified congestive heart failure type Congestive heart failure chronicity: acute Qualified Code(s): I50.9 - Heart failure, unspecified (4) CAD (coronary artery disease) Current Visit: No Status: Chronic Assessment and plan: chronic cardiology consulted for concern of ACS see plan above Qualifiers: Coronary Disease-Associated Artery/Lesion type: bypass graft [place] vs. transplanted heart: [place] heart Associated angina: without angina Qualified Code(s): I25.810 - Atherosclerosis of coronary artery bypass graft(s) without angina pectoris (5) Type 2 diabetes mellitus Current Visit: No Status: Chronic Assessment and plan: FSBG within 200 mostly cont SSI home meds on discharge Qualifiers: Diabetes mellitus complication status: without complication Diabetes mellitus [employer]man insulin use: without snf use Qualified Code(s): E11.9 - Type 2 diabetes mellitus without complications (6) DVT prophylaxis Current Visit: No Status: Acute Assessment and plan: currently on heparin infusion for possible ACS - Time Spent With Patient 25 - 35 minutes - Subjective Interval history: Patient is poor historian. Daughter present states patient is overall unchanged symptomatically. Patient does state that she is still somewhat short of air. Patient is unusual rate of nasal 02 of 3 L per minute. Other vital signs stable. Has been intermittently tachycardic; known history of atrial fibrillation and extensive ASCVD. Also, of no, patient is currently on heparin drip for concern of NSTEMI; suspect in absence of any acute ACS equivalent symptoms, patient is experiencing a demand ischemia (has had elevated troponin levels serially). Cardio is consultated on case. - Constitutional Vitals: Temp Pulse Resp BP Pulse Ox 98.3 F 87 17 103/62 98 03/14/17 04:24 03/14/17 04:24 03/14/17 04:24 03/14/17 04:24 03/13/17 22:36 General appearance: Present: A&O X 2, pleasant, no acute distress, answers questions appropriately - Head Head exam: Present: atraumatic, normocephalic - Eye Eye exam: Present: PERRL, conjuntiva pink, sclera anicteric. Absent: conjunctival injection - Neck Neck exam general surgery: Present: supple, trachea midline - Respiratory Respiratory exam: Present: CTAB. Absent: accessory muscle use, prolonged expiratory phase, rales, respiratory distress, rhonchi, stridor, wheezes, tachypnea - Cardiovascular Cardiovascular exam: Present: RRR, +S1, +S2. Absent: diastolic murmur, gallop, JVD, rubs, +S3, +S4, systolic murmur, tachycardia (Not tachycardic on exam) - GI/Abdominal GI/Abdominal exam: Present: soft. Absent: distended, guarding, tenderness - Extremities Exam Extremities exam: Present: pedal edema (Trace pitting was some chronic stasis change; no ladder lysing asymmetrical edema), warm, radial pulses palpable and symmetrical. Absent: calf tenderness, cyanotic - Neurological Exam Neurological exam: Present: no focal deficits. Absent: facial droop, speech deficit - Skin Skin exam: Present: dry, intact, normal color. Absent: cyanosis, diaphoretic, mottled, pallor Internal Medicine: Result - Labs CBC & Chem 7: 03/14/17 12:00 03/14/17 12:00 Labs: Cardiac Enzymes 03/13/17 03/14/17 Range/Units 20:30 02:37 Troponin I 0.15 H* 0.13 H* (0-0.03) ng/mL - ABG Interpretation ABG results: PT/INR, D-dimer PT 16.3 Seconds (9.4-12.1) H 03/13/17 13:22 Consult Discharge Plan - Plan Referrals: Hal Monroy MD [Primary Care Provider] - 03/22/17 9:15 am Juan Suarez CNP [Advanced Practice Nurse] - (OFFICE WILL CALL PATIENT AT HOME WITH FOLLOW UP APPOINTMENT) <Ramiro Mccarthy - Last Filed: 03/15/17 17:32> Date of Encounter: 03/15/17 - Constitutional Vitals: Temp Pulse Resp BP Pulse Ox 99.2 F 77 18 106/63 100 03/15/17 15:52 03/15/17 15:52 03/15/17 15:52 03/15/17 15:52 03/15/17 15:52 Internal Medicine: Result - Labs CBC & Chem 7: 03/15/17 03:07 03/15/17 03:07 Labs: Short CBC 03/15/17 Range/Units 03:07 WBC 12.4 H (4.3-11.1) K/mcL Hgb 9.0 L (11.5-15.4) g/dL Hct 28.2 L (35.3-44.9) % Plt Count 249 (140-400) K/mcL Neutrophils # 9.1 H (1.6-8.9) K/mcL BMP 03/15/17 03:07 Sodium 140 Potassium 4.1 Chloride 106 Carbon Dioxide 25 BUN 15 Creatinine 0.83 Glucose 108 H Calcium 8.2 L - ABG Interpretation ABG results: PT/INR, D-dimer PT 16.3 Seconds (9.4-12.1) H 03/13/17 13:22 - Impressions Impressions Echocardiogram Limited Views 03/14/17 13:13 Impressions: LVEF 45-50%. LV systolic function is low normal to mildly reduced with regional variations. Visually, the LV is dilated although measurements were not well obtained. RV is not fully evaluated on this limited study. Visually, it appears dilated with normal function. Bi-atrial enlargement. Device lead is present. Left Ventricular Wall Motion: Rest Echo Findings The mid anterior lateral, basal anterior lateral and basal inferior lateral mack were hypokinetic. The mid anterior septal and mid inferior lateral mack were not visualized. All other wall segments showed normal motion. Findings: Study Quality * Technically adequate exam. ECG Findings * Unclear underlying rhythm - artifact. Left Ventricle * Possibly asymmetric septal hypertrophy although measurements were not well obtained. * Visually, the LV is dilated although measurements we will not well obtained. * LVEF 45-50%. Right Ventricle * RV is not fully evaluated on this limited study. Visually, it appears dilated with normal function. Left Atrium * Severely dilated left atrium. Right Atrium * Moderately dilated right atrium. Device lead * A device lead was visualized in the right atrium and right ventricle. - Attending Attestation I examined this patient and my medical decision-making was reviewed with the Resident Physician. I agree with the documented findings, disposition and treatment plan as described except to the extent set forth below. TMs. Rodarte is a 71 year old female with PMH of COPD, systolic CHF, CMP, A-Fib on Eliquis, CAD with hx CABG and PCI, HLD, Pacemaker AICD, and JORGE who presented to [facility] ER with worsening SOB, Cough, as well concerned about AICD got fired. She denied any CP now. SOB also improved. No fever . chills Gen: A, A, O x 3 Chest: Diminished BS b/l, No crackles No rales mild wheezing Heart: S1 S2 + a/p 1. Acute COPD exacerbation 2. Chronic hypoxic resp failure 3. Aspiration pneumonia Improving cont IV abx will f/arriola on speech eval recommendation 4. Elevated troponin Flat elevated Trop She denied any active CP now 2 D Echo ordered Since Card is not planning on doing any procedure will switch her back to Eliquis from Heparin gtt cont other home meds 5. Chronic systolic heart failure not in exacerbation Held diuretics due to Pneumonia
[2017-03-14] MEDS: Metoprolol XL (24 HR) Succ 25 MG TAB.ER.24H PO SCH (09:36)
[2017-03-14] MEDS: Spironolactone 25 MG TABLET PO SCH ×2 (09:36→20:14)
[2017-03-14] MEDS: Insulin LISPRO 300 UNITS/3 ML VIAL SQ SCH ×3 (09:37→16:38)
[2017-03-14] MEDS ORDERED: Aspirin 81 MG TAB.CHEW ONE ×2 (10:40→11:24)
[2017-03-14] MEDS: Thiamine (B-1) 100 MG TABLET PO SCH (11:22)
--- NOTE | 2017-03-14 11:42 | Cardiology Consult Note ---
Date of Encounter: 03/14/17 Time of Encounter: 11:42 Assessment and Plan (1) Chest pain Current Visit: Yes Status: Acute Reports she had midsternal aching chest pain yesterday morning that lasted hours , not relieved or exacerbated by anything, resolved spontaneously without recurrence. Reports different than previous anginal equivalent. Troponins flat and adynamic--0.11, 0.15, 0.13, 0.14, nondiagnostic for ACS. Known hx of CAD and CMP EF 35%. LHC 12/2015: Left main coronary artery: severe ostial stenosis of 70-75%. Left anterior descending coronary artery: Severe proximal stenosis of 95%. Left circumflex coronary artery: chronically occluded proximally. SVG to LAD: occluded proximally. SVG to RCA: Patent with no significant disease. The jump graft to PDA was occluded. The PDA has 75% stenosis. PCI/RONEL to mid PDA. Chest tenderness noted on palpation. Seems mostly atypical, but given her hx and troponins discussed LHC vs medical management with pt. She prefers medical management. Imdur added. Continue Statin , BB, Plavix. Not on ASA due to being on Plavix and Eliquis at home. Check limited echo to re-evaluate EF. EF 35% 11/2016. If no significant change, continue with medical management and can stop heparin gtt and resume Eliquis. Qualifiers: Chest pain type: unspecified Qualified Code(s): R07.9 - Chest pain, unspecified (2) Elevated troponin Current Visit: Yes Status: Acute Troponins flat and adynamic--0.11, 0.15, 0.13, 0.14 in setting of suspected COPD exacerbation and mild TREY on admission--now improved. Nondiagnostic for ACS. Pt did have episode of chest pain yesterday, known hx of CAD s/p CABG and PCI as detailed above. Discussed LHC vs. medical management. Pt prefers medical management. Imdur added. Check echo to evaluate EF--known to be 35% 11/2016. Cardiac rehab not warranted. (3) Cardiomyopathy Current Visit: Yes Status: Acute Known prior EF of 40-45%, ischemic CMP that had been stable since 2012. However , recently worsened. EF 11/14/16 EF 35%. At that time, was suspected tachycardia induced given her A-Fib RVR around that time. HR currently controlled--AVG HR 83. Recheck limited echo to evaluate EF. [facility] 12/2015 Left main coronary artery: severe ostial stenosis of 70-75%. Left anterior descending coronary artery: Severe proximal stenosis of 95%. Left circumflex coronary artery: chronically occluded proximally. SVG to LAD: occluded proximally. SVG to RCA: Patent with no significant disease. The jump graft to PDA was occluded. The PDA has 75% stenosis. PCI/RONEL to mid PDA. Continue BB and Aldactone. ICD in place. Qualifiers: Cardiomyopathy type: unspecified Qualified Code(s): I42.9 - Cardiomyopathy , unspecified (4) Chronic systolic CHF (congestive heart failure), NYHA class 2 Current Visit: No Status: Acute As above, known EF 35%. Near euvolemic on exam with no acute process on CXR. Recommend 2L fluid and Na restriction. (5) Atrial fibrillation Current Visit: No Status: Chronic Known chronic A-Fib. Currently rate controlled on BB and Digoxin. Anticoagulated on Eliquis at home, but currently on heparin gtt as inpt. Qualifiers: Atrial fibrillation type: chronic Qualified Code(s): I48.2 - Chronic atrial fibrillation (6) CAD (coronary artery disease) Current Visit: No Status: Chronic Hx of CABG and subsequent PCI/RONEL to mid PDA 12/2015. Continue ASA, Statin, BB. Add long acting nitrate--Imdur 30mg daily. Qualifiers: Coronary Disease-Associated Artery/Lesion type: bypass graft [place] vs. transplanted heart: [place] heart Associated angina: without angina Qualified Code(s): I25.810 - Atherosclerosis of coronary artery bypass graft(s) without angina pectoris Discussion w patient/family: The assessment and plan as outlined above was discussed with the patient and/or family members who expressed understanding and agreement. All questions were answered. Thank you for involving us in the care of your patient. Please call with any questions. I will discuss all the above with Dr. Rodriguez and make changes as necessary. History of Present Illness Consult date: 03/14/17 Requesting physician: Juan Browning Consult reason: Elevated troponin Chief complaint: dyspnea, chest pain History of present illness: Ms. Rodarte is a 71 year old female with PMH of COPD, systolic CHF, CMP, A-Fib on Eliquis, CAD with hx CABG and PCI, HLD, Pacemaker AICD, and JORGE who presented to [facility] yesterday with complaints of weakness, worsening shortness of breath and chest pain. She reports chest pain was yesterday and lasted most of the morning, midsternal aching not worsened or alleviated by anything that resolved spontaneously without recurrence. She reports trouble swallowing over the past year. EF previously 40-45%, known. EF mildly worsened to 35% 11/2016. [facility] 12/2015 with RONEL to mid PDA. Reported a sensation from ICD. Device interrogated. There was an audible alert for lead impedance above threshold, but no ICD shocks. Troponins 0.11, 0.15, 0.13, 0.14. Cardiology consulted for further recommendations. Recent CV testing: Echo 11/14/16: LVEF 35%, appears globally hypokinetic. Moderately dilated LV, severely dilated left atrium, moderately dilated right atrium, mild-moderate TR , mild phtn. Echo 08/06/16 EF 40-45% with regional wall motion abnormalities. Mild RV hypokinesis, severely dilated left atrium, mild MR. [facility] 12/25/2015 Impressions: Left main coronary artery: severe ostial stenosis of 70-75% Left anterior descending coronary artery: Severe proximal stenosis of 95%. Left circumflex coronary artery: chronically occluded proximally SVG to LAD: occluded proximally SVG to RCA: Patent with no significant disease. The jump graft to PDA was occluded. The PDA has 75% stenosis. PCI/RONEL to mid PDA. Past Med Surg Social Fam HX - Past Medical History Medical history: arthritis, atrial fibrillation, CHF, COPD, coronary artery disease, diabetes, hypertension, myocardial infarction Psychiatric history: anxiety, depression - Past Surgical History Surgical History: angioplasty/stent (2 stent), coronary bypass (CABG), hysterectomy, pacemaker/AICD - Social History Smoking Status: Current every day smoker (Noncontributory) Smokeless Tobacco Status: No Alcohol use: none Drug use: none - Family History Father Adopted: No Family Member Ethnicity: Non- Living Status: Hx Family Cardiac Disorders: Yes Hx Family Respiratory Disorders: No Hx Family Cancer: No Hx Family GI Disorders: No Hx Family Endocrine Disorder: No Hx Family Neuromuscular Disorders: No Hx Family Neurologic Disorders: No Hx Family HEENT Disorders: No Hx Family Autoimmune Disorders: No Mother Living Status: Hx Family Endocrine Disorder: Yes (DM) Medications and Allergies Apixaban [Eliquis] 5 mg PO BID 08/04/16 [History] Clopidogrel [Plavix] 75 mg PO DAILY 08/04/16 [History] Ferrous Sulfate 325 mg PO DAILY 08/04/16 [History] Fluticasone/Salmeterol [Advair 500-50 Diskus] 1 puff IH BID 08/04/16 [History] Pantoprazole Sodium [Protonix] 40 mg PO DAILY 08/04/16 [History] Pravastatin Sodium [Pravachol] 80 mg PO HS 08/04/16 [History] Oxygen 3 l NS CONT 12/06/16 [History] Metoprolol XL (24 HR) Succ [Toprol Xl] 25 mg PO DAILY #30 12/10/16 [Rx] metFORMIN [Glucophage] 500 mg PO DAILY #30 tablet 12/10/16 [Rx] Acetaminophen/Diphenhydramine [Acetaminophen Pm Caplet] 2 tab PO HS 02/04/17 [ History] Digoxin [Lanoxin] 0.125 mg PO MOTUWETHFR 02/04/17 [History] Sennosides [Senna] 8.6 mg PO DAILY PRN 02/04/17 [History] Spironolactone [Aldactone] 12.5 mg PO BID 02/04/17 [History] Ipratropium/Albuterol Neb [Duoneb] 3 ml IH Q6HR 02/27/17 [History] Furosemide [Lasix] 40 mg PO BID 03/13/17 [History] predniSONE [PredniSONE] 10 mg PO DAILY 03/13/17 [History] 3 Allergy/AdvReac Type Severity Reaction Status Date / Time bupropion [From Wellbutrin] Allergy Swelling Verified 02/27/17 17:24 of Lip/Tongue/Throat Sulfa (Sulfonamide Allergy Hives Verified 02/27/17 17:24 Antibiotics) Varenicline [From Chantix] Allergy Swelling Verified 02/27/17 17:24 of Lip/Tongue/Throat Iodinated Contrast- Oral and AdvReac See Verified 02/27/17 17:24 IV Dye Comments [Iodinated Contrast Media - Oral and] tape Allergy Hives Uncoded 02/27/17 17:24 All Systems Review: A 10-system review of systems was performed and is negative for pertinent findings except as documented above in the HPI. - Constitutional Constitutional: weakness - Cardiovascular Cardiovascular: chest pain at rest, chest pain with exertion, dyspnea at rest, dyspnea on exertion - Respiratory Respiratory: dyspnea Physical Examination Vital Signs Temp Pulse Resp BP Pulse Ox 03/14/17 04:24 98.3 F 87 17 103/62 03/14/17 00:04 82 03/13/17 22:36 99.0 F 89 18 109/59 98 03/13/17 21:30 86 03/13/17 21:14 99 03/13/17 20:37 97.4 F L 90 18 98/66 92 03/13/17 20:36 16 94 03/13/17 17:55 16 98/58 03/13/17 16:41 100 18 134/99 97 03/13/17 15:39 82 137/80 99 03/13/17 14:54 107 136/82 96 03/13/17 13:36 97 03/13/17 12:57 98.2 F 106 20 117/98 98 Intake and Output 03/13/17 03/14/17 03/14/17 23:59 07:59 15:59 Intake Total 1100 / 1100 180 / 180 Output Total 200 / 200 500 / 500 Balance 900 / 900 -500 / -500 180 / 180 Intake: IV Fluids 1100 / 1100 0.9 % Sodium Chloride 1,000 ML 1000 / 1000 @ 9999 mls/hr IVC .Q6M ONE Rx#: [id number] Heparin 25,000 UNIT/500 ML D5W 100 / 100 25,000 unit In 500 ml @ 12 UNIT /KG/HR 16.765 mls/hr IVC .Q24H [facility] Rx#:[id number] Oral 180 / 180 Output: Urine 200 / 200 500 / 500 Other: Meal Breakfast Percent of Meal Consumed 80% Stool Size Moderate Stool Consistency formed Stool Characteristics Normal for Patient Stool Color Brown Blood Glucose* 201 100 157 General: Conversant, No Apparent Distress HEENT: Atraumatic, Normocephaly, Mucus Membranes Moist Neck: No JVD, Normal carotid pulses Cardiac: Other (irregularly irregular) Lungs: Other (diminished, coarse) Neuro: Alert and responsive, No focal deficits noted Abdomen: Soft, Non-Tender Skin: No rashes noted on visualized skin Musculoskeletal: No Chest Wall Tenderness Extremities: Other (mild BLE edema) Results 03/14/17 12:00 03/14/17 12:00 Lab Results 03/14/17 03/14/17 08:11 08:11 APTT 89.0 H Troponin I 0.14 H* Short CBC 03/13/17 Range/Units 13:22 WBC 21.4 H (4.3-11.1) K/mcL Hgb 12.9 (11.5-15.4) g/dL Hct 39.2 (35.3-44.9) % Plt Count 358 (140-400) K/mcL Neutrophils # 19.4 H (1.6-8.9) K/mcL BMP 03/13/17 Range/Units 13:22 Sodium 134 L (136-145) mEq/L Potassium 4.7 H (3.5-4.5) mEq/L Chloride 95 L (98-109) mEq/L Carbon Dioxide 25 (19-29) mEq/L BUN 31 H (7-20) mg/dL Creatinine 1.42 H (0.57-1.11) mg/dL Glucose 195 H (70-99) mg/dL Calcium 9.3 (8.6-10.8) mg/dL Cardiac Enzymes 03/14/17 03/14/17 03/13/17 Range/Units 08:11 02:37 20:30 Troponin I 0.14 H* 0.13 H* 0.15 H* (0-0.03) ng/mL 03/13/17 Range/Units 13:22 Troponin I 0.11 H* (0-0.03) ng/mL Urine 03/13/17 Range/Units 14:25 Urine Color Yellow (Yellow) Urine Clarity Clear (Clear) Urine pH 5.5 (5.0-8.0) pH Units Ur Specific [place] 1.018 (1.010-1.025) Urine Protein Negative (Neg-Trace) mg/dL Urine Glucose (UA) Normal (Normal) mg/dL Active Medications Atorvastatin Calcium (Lipitor) 20 mg PO HS CARLOS Stop: 09/12/17 21:01 Last Admin: 03/13/17 21:28 Dose: 20 mg Budesonide/Formoterol Fumarate (Symbicort) 2 puff IH BIDR CARLOS Stop: 09/12/17 22:01 Last Admin: 03/14/17 08:25 Dose: 2 puff Clopidogrel Bisulfate (Plavix) 75 mg PO DAILY [facility] Stop: 09/12/17 19:31 Last Admin: 03/14/17 09:36 Dose: 75 mg Dextrose/Water (Dextrose 50% (Syg)) 25 ml IVP AD PRN PRN Reason: Hypoglycemia Stop: 09/12/17 19:21 Digoxin (Lanoxin) 0.125 mg PO MOTUWETHFR [facility] Stop: 09/12/17 19:31 Last Admin: 03/13/17 21:28 Dose: 0.125 mg Ferrous Sulfate (Ferrous Sulfate) 325 mg PO DAILY [facility] Stop: 09/13/17 09:01 Last Admin: 03/14/17 09:36 Dose: 325 mg Glucagon (Glucagen) 1 mg IM ONCE PRN PRN Reason: Hypoglycemia Stop: 09/12/17 19:21 Glucose (Gluctose) 15 gm PO ONCE PRN PRN Reason: Hypoglycemia Stop: 09/12/17 19:21 Glucose (Gluctose) 30 gm PO ONCE PRN PRN Reason: Hypoglycemia Stop: 09/12/17 19:21 Heparin Sodium/Dextrose (Heparin 25,000 Unit/500 Ml D5w) 25,000 unit in 500 mls @ 16.765 mls/hr IVC .Q24H CARLOS; 12 UNIT/KG/HR PRN Reason: Protocol Stop: 09/12/17 14:16 Last Titration: 03/13/17 21:39 Dose: 14 unit/kg/hr, 19.559 mls/hr Dextrose (Dextrose 5%) 1,000 mls @ 100 mls/hr IVC .Q10H PRN PRN Reason: HYPOGLYCEMIA Stop: 09/12/17 19:21 Insulin Human Lispro (Humalog) 0 units SQ TIDAC [facility] PRN Reason: Protocol Stop: 09/12/17 19:16 Last Admin: 03/14/17 09:37 Dose: Not Given Metoprolol Succinate (Toprol Xl) 25 mg PO DAILY [facility] Stop: 09/13/17 09:01 Last Admin: 03/14/17 09:36 Dose: 25 mg Omeprazole (Prilosec) 20 mg PO DAILY [facility] Stop: 09/13/17 09:01 Last Admin: 03/14/17 09:36 Dose: 20 mg Senna (Senna) 8.6 mg PO DAILY PRN PRN Reason: Constipation Stop: 09/12/17 19:30 Spironolactone (Aldactone) 12.5 mg PO BID [facility] Stop: 09/12/17 21:01 Last Admin: 03/14/17 09:36 Dose: 12.5 mg Thiamine HCl (Vitamin B-1) 200 mg PO DAILY [facility] Stop: 09/12/17 19:16 Last Admin: 03/14/17 11:22 Dose: 200 mg - Imaging and Cardiology Echo: report reviewed Cardiac cath: report reviewed - EKG Interpretation EKG results cardiology: personally reviewed (A-Fib RVR rate 107), other (12 hr tele AVG HR 83, A-Fib.) Consult Discharge Plan - Plan Referrals: Hal Monroy MD [Primary Care Provider] -
[2017-03-14 12:40] LABS: Basophils # 0.1 K/mcL (0.0-0.2); Basophils % 0.3 %; Eosinophils % 0.2 %; Hematocrit 32.9 % (35.3-44.9); Hemoglobin 10.4 g/dL (11.5-15.4); Immature Granulocytes % 1.1 % (0-4); Lymphocytes # 2.3 K/mcL (0.6-4.6); Lymphocytes % 16.2 %; Mean Corpuscular HGB Conc 31.6 g/dL (31.6-35.5); Mean Corpuscular Volume 94.8 fL (83.0-100.0); Mean Platelet Volume 10.8 fL (9.4-12.4); Monocytes # 0.9 K/mcL (0.0-1.3); Monocytes % 6.4 %; Neutrophils # 10.8 K/mcL (1.6-8.9); Nucleated Red Blood Cells 0.1 /100 WBC (0); Platelet Count 255 K/mcL (140-400); Red Blood Count 3.47 M/mcL (3.82-4.97); Red Cell Distribution Width 14.6 % (11.5-14.5); Segmented Neutrophils % 75.8 %
[2017-03-14 12:53] LABS: Calcium 8.2 mg/dL (8.6-10.8)
[2017-03-14] MEDS: Heparin 25,000 UNIT/500 ML D5W 25,000 UNIT/500 ML MLS IVC SCH (14:54)
[2017-03-14] MEDS: *HR* Digoxin 0.125 MG TABLET PO SCH (19:30)
[2017-03-14] MEDS: APIXABAN 5 MG TABLET PO SCH (20:15)
[2017-03-15 03:52] LABS: Basophils % 0.2 %; Eosinophils % 0.2 %; Hematocrit 28.2 % (35.3-44.9); Lymphocytes # 2.2 K/mcL (0.6-4.6); Lymphocytes % 17.5 %; Mean Corpuscular HGB Conc 31.9 g/dL (31.6-35.5); Mean Corpuscular Hemoglobin 30.3 pg (28.0-33.3); Mean Corpuscular Volume 94.9 fL (83.0-100.0); Mean Platelet Volume 10.4 fL (9.4-12.4); Monocytes # 0.9 K/mcL (0.0-1.3); Monocytes % 7.4 %; Neutrophils # 9.1 K/mcL (1.6-8.9); Platelet Count 249 K/mcL (140-400); Red Blood Count 2.97 M/mcL (3.82-4.97); Red Cell Distribution Width 14.6 % (11.5-14.5); Segmented Neutrophils % 73.7 %
[2017-03-15 04:05] LABS: BUN/Creatinine Ratio 18 (6-26); Blood Urea Nitrogen 15 mg/dL (7-20); Calcium 8.2 mg/dL (8.6-10.8); Carbon Dioxide 25 mEq/L (19-29); Chloride 106 mEq/L (98-109); Glucose 108 mg/dL (70-99); Osmolality,Calculated 291 (280-300); Potassium 4.1 mEq/L (3.5-4.5); Sodium 140 mEq/L (136-145); eGFR For African Americans > 60 (> 60); eGFR For Non-African Americans > 60 (> 60)
[2017-03-15] MEDS: Insulin LISPRO 300 UNITS/3 ML VIAL SQ SCH ×3 (08:05→17:57)
[2017-03-15] MEDS: Spironolactone 25 MG TABLET PO SCH ×2 (08:05→19:53)
[2017-03-15] MEDS: Metoprolol XL (24 HR) Succ 25 MG TAB.ER.24H PO SCH (08:08)
[2017-03-15] MEDS: APIXABAN 5 MG TABLET PO SCH ×2 (08:08→19:54)
[2017-03-15] MEDS: Thiamine (B-1) 100 MG TABLET PO SCH (08:08)
[2017-03-15] MEDS: Budesonide/Formoterol 160/4.5 MDI IH SCH ×2 (08:18→20:28)
--- NOTE | 2017-03-15 10:11 | Cardiology Progress Note ---
Date of Encounter: 03/15/17 Time of Encounter: 10:07 Assessment and Plan (1) Chest pain Current Visit: Yes Status: Acute Reports she had midsternal aching chest pain prior to admission that lasted hours, not relieved or exacerbated by anything, resolved spontaneously without recurrence. Reports different than previous anginal equivalent. Troponins flat and adynamic--0.11, 0.15, 0.13, 0.14, nondiagnostic for ACS. Known hx of CAD and CMP EF 35%. LHC 12/2015: Left main coronary artery: severe ostial stenosis of 70-75%. Left anterior descending coronary artery: Severe proximal stenosis of 95%. Left circumflex coronary artery: chronically occluded proximally. SVG to LAD: occluded proximally. SVG to RCA: Patent with no significant disease. The jump graft to PDA was occluded. The PDA has 75% stenosis. PCI/RONEL to mid PDA. Chest tenderness noted on palpation yesterday. Seems mostly atypical, but given her hx and troponins discussed LHC vs medical management with pt. She prefers medical management. Imdur added. Continue Statin , BB, Plavix. Not on ASA due to being on Plavix and Eliquis at home. Check limited echo to re-evaluate EF. EF 35% 11/2016. If no significant change, continue with medical management and will sign off. No recurrent chest pain since Imdur was added. Qualifiers: Chest pain type: unspecified Qualified Code(s): R07.9 - Chest pain, unspecified (2) Elevated troponin Current Visit: Yes Status: Acute Troponins flat and adynamic--0.11, 0.15, 0.13, 0.14 in setting of suspected COPD exacerbation and mild TREY on admission--now improved. Nondiagnostic for ACS. Pt did have episode of chest pain yesterday, known hx of CAD s/p CABG and PCI as detailed above. Discussed LHC vs. medical management. Pt prefers medical management. Imdur added. Now chest pain free. Check echo to evaluate EF--known to be 35% 11/2016. Cardiac rehab not warranted. (3) Cardiomyopathy Current Visit: Yes Status: Acute Known prior EF of 40-45%, ischemic CMP that had been stable since 2012. However , recently worsened. EF 11/14/16 EF 35%. At that time, was suspected tachycardia induced given her A-Fib RVR around that time. HR currently controlled--AVG HR 83. Recheck limited echo to evaluate EF. [facility] 12/2015 Left main coronary artery: severe ostial stenosis of 70-75%. Left anterior descending coronary artery: Severe proximal stenosis of 95%. Left circumflex coronary artery: chronically occluded proximally. SVG to LAD: occluded proximally. SVG to RCA: Patent with no significant disease. The jump graft to PDA was occluded. The PDA has 75% stenosis. PCI/RONEL to mid PDA. Continue BB and Aldactone. ICD in place. Qualifiers: Cardiomyopathy type: unspecified Qualified Code(s): I42.9 - Cardiomyopathy , unspecified (4) Chronic systolic CHF (congestive heart failure), NYHA class 2 Current Visit: No Status: Acute As above, known EF 35%. Near euvolemic on exam with no acute process on CXR. Recommend 2L fluid and Na restriction. (5) Atrial fibrillation Current Visit: No Status: Chronic Known chronic A-Fib. Currently rate controlled on BB and Digoxin. Anticoagulated on Eliquis. HGB has dropped from 12.9 to 9.0. Denies signs of bleeding. Recommend further work-up per primary team. This is lowest HGB in her lab hx. Qualifiers: Atrial fibrillation type: chronic Qualified Code(s): I48.2 - Chronic atrial fibrillation (6) CAD (coronary artery disease) Current Visit: No Status: Chronic Hx of CABG and subsequent PCI/RONEL to mid PDA 12/2015. Continue ASA, Statin, BB. Add long acting nitrate--Imdur 30mg daily. Qualifiers: Coronary Disease-Associated Artery/Lesion type: bypass graft [place] vs. transplanted heart: [place] heart Associated angina: without angina Qualified Code(s): I25.810 - Atherosclerosis of coronary artery bypass graft(s) without angina pectoris Discussion w patient/family: The assessment and plan as outlined above was discussed with the patient and/or family members who expressed understanding and agreement. All questions were answered. Thank you for involving us in the care of your patient. Please call with any questions. I will discuss all the above with Dr. Rodriguez and make changes as necessary. Subjective Principal diagnosis: Chest pain, elevated troponin Interval history: Pt denies any recurrent chest pain overnight. Echo still pending--system currently down and echos unable to be viewed. Objective Vital Signs, Last 4 Hours Temp Pulse Resp Pulse Ox 03/15/17 09:48 86 03/15/17 08:18 18 96 03/15/17 07:39 98.7 F 120 20 97 Vital Signs Temp Pulse Resp BP Pulse Ox 03/15/17 09:48 86 03/15/17 08:18 18 96 03/15/17 07:39 98.7 F 120 20 97 03/15/17 03:10 68 03/15/17 02:45 98.8 F 79 16 115/79 98 03/15/17 00:20 76 03/14/17 23:08 98.0 F 75 16 115/61 98 03/14/17 20:00 18 98 03/14/17 19:35 84 03/14/17 18:59 98.2 F 74 20 100/57 100 03/14/17 15:59 98.4 F 85 17 93/62 96 03/14/17 11:30 97.4 F L 77 16 122/64 99 Intake and Output 03/14/17 03/15/17 03/15/17 23:59 07:59 15:59 Intake Total 480 / 480 480 / 480 Output Total 800 / 800 Balance 480 / 480 -800 / -800 480 / 480 Intake: Oral 480 / 480 480 / 480 Output: Urine 800 / 800 Other: Meal Dinner Breakfast Percent of Meal Consumed 100% 75% Weight 76.6 kg Blood Glucose* 139 103 Patient Weight 03/15/17 23:59 Weight 76.6 kg General: Conversant, No Apparent Distress HEENT: Atraumatic, Normocephaly, Mucus Membranes Moist Neck: No JVD, Normal carotid pulses Cardiac: Other (irregularly irregular) Lungs: Other (diminished) Neuro: Alert and responsive, No focal deficits noted Abdomen: Soft, Non-Tender Skin: No rashes noted on visualized skin Musculoskeletal: No Chest Wall Tenderness Extremities: No Clubbing, No Cyanosis, No Edema, Normal Pulses Results 03/15/17 03:07 03/15/17 03:07 Lab Results 03/14/17 03/14/17 03/14/17 12:00 12:00 12:00 WBC 14.3 H Hgb 10.4 L D Hct 32.9 L Plt Count 255 APTT Sodium 139 Potassium 4.0 Chloride 105 Carbon Dioxide 25 BUN 19 D Creatinine 1.15 H Glucose 128 H Calcium 8.2 L Magnesium B-Natriuretic Peptide 213 H 03/15/17 03/15/17 03/15/17 03:07 03:07 03:07 WBC 12.4 H Hgb 9.0 L Hct 28.2 L Plt Count 249 APTT 29.0 D Sodium 140 Potassium 4.1 Chloride 106 Carbon Dioxide 25 BUN 15 Creatinine 0.83 Glucose 108 H Calcium 8.2 L Magnesium B-Natriuretic Peptide 03/15/17 03:07 WBC Hgb Hct Plt Count APTT Sodium Potassium Chloride Carbon Dioxide BUN Creatinine Glucose Calcium Magnesium 2.1 B-Natriuretic Peptide Short CBC 03/15/17 03/14/17 Range/Units 03:07 12:00 WBC 12.4 H 14.3 H (4.3-11.1) K/mcL Hgb 9.0 L 10.4 L D (11.5-15.4) g/dL Hct 28.2 L 32.9 L (35.3-44.9) % Plt Count 249 255 (140-400) K/mcL Neutrophils # 9.1 H 10.8 H (1.6-8.9) K/mcL BMP 03/15/17 03/14/17 Range/Units 03:07 12:00 Sodium 140 139 (136-145) mEq/L Potassium 4.1 4.0 (3.5-4.5) mEq/L Chloride 106 105 (98-109) mEq/L Carbon Dioxide 25 25 (19-29) mEq/L BUN 15 19 D (7-20) mg/dL Creatinine 0.83 1.15 H (0.57-1.11) mg/dL Glucose 108 H 128 H (70-99) mg/dL Calcium 8.2 L 8.2 L (8.6-10.8) mg/dL Impressions Videofluoroscopic Swallow 03/14/17 09:21 IMPRESSION: Swallowing mechanism grossly within normal limits without evidence of aspiration. Please see separate speech pathology report for full discussion of findings and recommendations. D/ / Laureano Whitney MD / Laureano Whitney MD Interpreting Provider: Laureano Whitney MD Active Medications Apixaban (Eliquis) 5 mg PO BID [facility] Stop: 09/13/17 21:01 Last Admin: 03/15/17 08:08 Dose: 5 mg Atorvastatin Calcium (Lipitor) 20 mg PO HS [facility] Stop: 09/12/17 21:01 Last Admin: 03/14/17 20:15 Dose: 20 mg Budesonide/Formoterol Fumarate (Symbicort) 2 puff IH BIDR [facility] Stop: 09/12/17 22:01 Last Admin: 03/15/17 08:18 Dose: 2 puff Clopidogrel Bisulfate (Plavix) 75 mg PO DAILY [facility] Stop: 09/12/17 19:31 Last Admin: 03/15/17 08:08 Dose: 75 mg Dextrose/Water (Dextrose 50% (Syg)) 25 ml IVP AD PRN PRN Reason: Hypoglycemia Stop: 09/12/17 19:21 Digoxin (Lanoxin) 0.125 mg PO MOTUWETHFR [facility] Stop: 09/12/17 19:31 Last Admin: 03/14/17 19:30 Dose: 0.125 mg Ferrous Sulfate (Ferrous Sulfate) 325 mg PO DAILY [facility] Stop: 09/13/17 09:01 Last Admin: 03/15/17 08:08 Dose: 325 mg Glucagon (Glucagen) 1 mg IM ONCE PRN PRN Reason: Hypoglycemia Stop: 09/12/17 19:21 Glucose (Gluctose) 15 gm PO ONCE PRN PRN Reason: Hypoglycemia Stop: 09/12/17 19:21 Glucose (Gluctose) 30 gm PO ONCE PRN PRN Reason: Hypoglycemia Stop: 09/12/17 19:21 Dextrose (Dextrose 5%) 1,000 mls @ 100 mls/hr IVC .Q10H PRN PRN Reason: HYPOGLYCEMIA Stop: 09/12/17 19:21 Insulin Human Lispro (Humalog) 0 units SQ TIDAC [facility] PRN Reason: Protocol Stop: 09/12/17 19:16 Last Admin: 03/15/17 08:05 Dose: Not Given Metoprolol Succinate (Toprol Xl) 25 mg PO DAILY [facility] Stop: 09/13/17 09:01 Last Admin: 03/15/17 08:08 Dose: 25 mg Omeprazole (Prilosec) 20 mg PO DAILY [facility] Stop: 09/13/17 09:01 Last Admin: 03/15/17 08:08 Dose: 20 mg Senna (Senna) 8.6 mg PO DAILY PRN PRN Reason: Constipation Stop: 09/12/17 19:30 Spironolactone (Aldactone) 12.5 mg PO BID [facility] Stop: 09/12/17 21:01 Last Admin: 03/15/17 08:05 Dose: 12.5 mg Thiamine HCl (Vitamin B-1) 200 mg PO DAILY [facility] Stop: 09/12/17 19:16 Last Admin: 03/15/17 08:08 Dose: 200 mg - Imaging and Cardiology Echo: pending - EKG Interpretation EKG results cardiology: other (12 hr tele AVG HR 80, A-Fib.) Consult Discharge Plan - Plan Referrals: Hal Monroy MD [Primary Care Provider] -
--- NOTE | 2017-03-15 11:36 | Internal Med Progress Note ---
<Juan Browning - Last Filed: 03/15/17 13:26> Date of Encounter: 03/15/17 Time of Encounter: 11:34 - Assessment and plan (1) COPD exacerbation Current Visit: Yes Status: Acute Assessment and plan: Symptomatically improving without any subjective dyspnea at this time; is on 3 L nasal cannula restful and speaks full sentences w/o respiratory distress There has been some consideration that pt may have aspiration pneumonia -change antibiotics to PO Augmentin -per ST eval and barium swallow, no enhanced risk of aspiration -will continue to monitor patient -due to recent course of shortness of air and fall risk, patient will need to be evaluated and treated by PT/OT -will likely need SNF placement on discharge (2) Elevated troponin Current Visit: Yes Status: Acute Assessment and plan: ECHO ordered per cardio; LVEF is actually improving from prior study at approximately 45 to 50% cardiology signed off on this case stating that patient is unlikely to be presently in ACS initial elevation of troponins plateaued and non-progressive in elevation (3) Congestive heart failure Current Visit: No Status: Suspected Assessment and plan: No acute signs of volume overload BNP at low 200s will restart patient unusual home diuretics Qualifiers: Congestive heart failure type: unspecified congestive heart failure type Congestive heart failure chronicity: acute Qualified Code(s): I50.9 - Heart failure, unspecified (4) CAD (coronary artery disease) Current Visit: No Status: Chronic Assessment and plan: Chronic see plan above for elevated troponin Qualifiers: Coronary Disease-Associated Artery/Lesion type: bypass graft [place] vs. transplanted heart: [place] heart Associated angina: without angina Qualified Code(s): I25.810 - Atherosclerosis of coronary artery bypass graft(s) without angina pectoris (5) Type 2 diabetes mellitus Current Visit: No Status: Chronic Assessment and plan: cont SSI home meds on discharge Qualifiers: Diabetes mellitus complication status: without complication Diabetes mellitus shelter insulin use: without shelter use Qualified Code(s): E11.9 - Type 2 diabetes mellitus without complications (6) DVT prophylaxis Current Visit: No Status: Acute Assessment and plan: currently on heparin infusion for possible ACS - Time Spent With Patient less than 15 minutes - Subjective Interval history: Short-lived run of tachycardia overnight. Otherwise, uneventful course per nursing. Patient subjectively improving with decreased SOA. Does state her legs/feet are "puffy". No acute symptoms or complaints. Discussed importance of working with PT/OT and consideration of SNF placement to which patient is agreeable. - Constitutional Vitals: Temp Pulse Resp BP Pulse Ox 98.6 F 70 17 100/54 99 03/15/17 11:23 03/15/17 11:23 03/15/17 11:23 03/15/17 11:23 03/15/17 11:23 General appearance: Present: pleasant, no acute distress, answers questions appropriately - Head Head exam: Present: atraumatic, normocephalic - Eye Eye exam: Present: normal appearance, PERRL, conjuntiva pink, sclera anicteric - Neck Neck exam general surgery: Present: supple, trachea midline - Respiratory Respiratory exam: Present: CTAB. Absent: accessory muscle use, decreased breath sounds, prolonged expiratory phase, rales, respiratory distress, rhonchi , stridor, wheezes, tachypnea - Cardiovascular Cardiovascular exam: Present: RRR, +S1, +S2, systolic murmur (Low-grade at left sternal border). Absent: diastolic murmur, gallop, rubs - GI/Abdominal GI/Abdominal exam: Present: soft. Absent: distended, tenderness - Extremities Exam Extremities exam: Present: pedal edema (Trace symmetrical pedal edema with no significant change from prior exam), warm, radial pulses palpable and symmetrical. Absent: calf tenderness, cyanotic - Neurological Exam Neurological exam: Present: no focal deficits. Absent: facial droop, speech deficit - Skin Skin exam: Present: dry, intact, normal color. Absent: cyanosis, diaphoretic, mottled, pallor Internal Medicine: Result - Labs CBC & Chem 7: 03/15/17 03:07 03/15/17 03:07 Labs: Short CBC 03/14/17 03/15/17 Range/Units 12:00 03:07 WBC 14.3 H 12.4 H (4.3-11.1) K/mcL Hgb 10.4 L D 9.0 L (11.5-15.4) g/dL Hct 32.9 L 28.2 L (35.3-44.9) % Plt Count 255 249 (140-400) K/mcL Neutrophils # 10.8 H 9.1 H (1.6-8.9) K/mcL BMP 03/14/17 03/15/17 12:00 03:07 Sodium 139 140 Potassium 4.0 4.1 Chloride 105 106 Carbon Dioxide 25 25 BUN 19 D 15 Creatinine 1.15 H 0.83 Glucose 128 H 108 H Calcium 8.2 L 8.2 L Laboratory Last Values WBC 12.4 K/mcL (4.3-11.1) H 03/15/17 03:07 RBC 2.97 M/mcL (3.82-4.97) L 03/15/17 03:07 Hgb 9.0 g/dL (11.5-15.4) L 03/15/17 03:07 Hct 28.2 % (35.3-44.9) L 03/15/17 03:07 MCV 94.9 fL (83.0-100.0) 03/15/17 03:07 MCH 30.3 pg (28.0-33.3) 03/15/17 03:07 MCHC 31.9 g/dL (31.6-35.5) 03/15/17 03:07 RDW 14.6 % (11.5-14.5) H 03/15/17 03:07 Plt Count 249 K/mcL (140-400) 03/15/17 03:07 MPV 10.4 fL (9.4-12.4) 03/15/17 03:07 Immature Gran % 1.0 % (0-4) 03/15/17 03:07 Seg Neutrophils % 73.7 % 03/15/17 03:07 Lymphocytes % 17.5 % 03/15/17 03:07 Monocytes % 7.4 % 03/15/17 03:07 Eosinophils % 0.2 % 03/15/17 03:07 Basophils % 0.2 % 03/15/17 03:07 Neutrophils # 9.1 K/mcL (1.6-8.9) H 03/15/17 03:07 Lymphocytes # 2.2 K/mcL (0.6-4.6) 03/15/17 03:07 Monocytes # 0.9 K/mcL (0.0-1.3) 03/15/17 03:07 Eosinophils # 0.0 K/mcL (0.0-0.6) 03/15/17 03:07 Basophils # 0.0 K/mcL (0.0-0.2) 03/15/17 03:07 Nucleated RBCs/100 WBC 0.1 /100 WBC (0) H 03/14/17 12:00 PT 16.3 Seconds (9.4-12.1) H 03/13/17 13:22 INR 1.5 03/13/17 13:22 APTT 29.0 Seconds (26.0-36.0) D 03/15/17 03:07 Sodium 140 mEq/L (136-145) 03/15/17 03:07 Potassium 4.1 mEq/L (3.5-4.5) 03/15/17 03:07 Chloride 106 mEq/L (98-109) 03/15/17 03:07 Carbon Dioxide 25 mEq/L (19-29) 03/15/17 03:07 BUN 15 mg/dL (7-20) 03/15/17 03:07 Creatinine 0.83 mg/dL (0.57-1.11) 03/15/17 03:07 Est GFR ( Amer) > 60 (> 60) 03/15/17 03:07 Est GFR (Non-Af Amer) > 60 (> 60) 03/15/17 03:07 BUN/Creatinine Ratio 18 (6-26) 03/15/17 03:07 Glucose 108 mg/dL (70-99) H 03/15/17 03:07 POC Glucose 139 (58-89) H 03/14/17 20:12 Calculated Osmolality 291 (280-300) 03/15/17 03:07 Calcium 8.2 mg/dL (8.6-10.8) L 03/15/17 03:07 Magnesium 2.1 mg/dL (1.6-2.6) 03/15/17 03:07 Troponin I 0.14 ng/mL (0-0.03) H* 03/14/17 08:11 B-Natriuretic Peptide 213 pg/mL (0-100) H 03/14/17 12:00 Lipase 38 Units/L (8-78) 03/13/17 13:22 Urine Color Yellow (Yellow) 03/13/17 14:25 Urine Clarity Clear (Clear) 03/13/17 14:25 Urine pH 5.5 pH Units (5.0-8.0) 03/13/17 14:25 Ur Specific [place] 1.018 (1.010-1.025) 03/13/17 14:25 Urine Protein Negative mg/dL (Neg-Trace) 03/13/17 14:25 Urine Glucose (UA) Normal mg/dL (Normal) 03/13/17 14:25 Urine Ketones Negative mg/dL (Negative) 03/13/17 14:25 Urine Blood Large (Negative) H 03/13/17 14:25 Urine Nitrite Negative (Negative) 03/13/17 14:25 Urine Bilirubin Negative (Negative) 03/13/17 14:25 Urine Urobilinogen Normal mg/dL (Normal) 03/13/17 14:25 Ur Leukocyte Esterase Negative (Negative) 03/13/17 14:25 Urine Microscopic RBC 0-3 per hpf (0-3) 03/13/17 14:25 Urine Microscopic WBC 0-3 per hpf (0-3) 03/13/17 14:25 Ur Squamous Epith Cells Many per lpf (None-Few) H 03/13/17 14:25 Urine Bacteria None Seen per hpf (None-Few) 03/13/17 14:25 Hyaline Casts Few per lpf (None-Few) 03/13/17 14:25 Urine Mucus Moderate (Few) H 03/13/17 14:25 Ur Culture Indicated? NO (NO) 03/13/17 14:25 Digoxin 1.1 ng/mL (0.8-2.0) 03/13/17 13:22 - ABG Interpretation ABG results: PT/INR, D-dimer PT 16.3 Seconds (9.4-12.1) H 03/13/17 13:22 - Impressions Impressions Videofluoroscopic Swallow 03/14/17 09:21 IMPRESSION: Swallowing mechanism grossly within normal limits without evidence of aspiration. Please see separate speech pathology report for full discussion of findings and recommendations. D/ / Laureano Whitney MD / Laureano Whitney MD Interpreting Provider: Laureano Whitney MD Echocardiogram Limited Views 03/14/17 13:13 Impressions: LVEF 45-50%. LV systolic function is low normal to mildly reduced with regional variations. Visually, the LV is dilated although measurements were not well obtained. RV is not fully evaluated on this limited study. Visually, it appears dilated with normal function. Bi-atrial enlargement. Device lead is present. Left Ventricular Wall Motion: Rest Echo Findings The mid anterior lateral, basal anterior lateral and basal inferior lateral mack were hypokinetic. The mid anterior septal and mid inferior lateral mack were not visualized. All other wall segments showed normal motion. Findings: Study Quality * Technically adequate exam. ECG Findings * Unclear underlying rhythm - artifact. Left Ventricle * Possibly asymmetric septal hypertrophy although measurements were not well obtained. * Visually, the LV is dilated although measurements we will not well obtained. * LVEF 45-50%. Right Ventricle * RV is not fully evaluated on this limited study. Visually, it appears dilated with normal function. Left Atrium * Severely dilated left atrium. Right Atrium * Moderately dilated right atrium. Device lead * A device lead was visualized in the right atrium and right ventricle. Consult Discharge Plan - Plan Referrals: Hal Monroy MD [Primary Care Provider] - 03/22/17 9:15 am Juan Suarez CNP [Advanced Practice Nurse] - (OFFICE WILL CALL PATIENT AT HOME WITH FOLLOW UP APPOINTMENT) <Ramiro Mccarthy - Last Filed: 03/15/17 17:34> Date of Encounter: 03/15/17 - Constitutional Vitals: Temp Pulse Resp BP Pulse Ox 99.2 F 77 18 106/63 100 03/15/17 15:52 03/15/17 15:52 03/15/17 15:52 03/15/17 15:52 03/15/17 15:52 Internal Medicine: Result - Labs CBC & Chem 7: 03/15/17 03:07 03/15/17 03:07 Labs: Short CBC 03/15/17 Range/Units 03:07 WBC 12.4 H (4.3-11.1) K/mcL Hgb 9.0 L (11.5-15.4) g/dL Hct 28.2 L (35.3-44.9) % Plt Count 249 (140-400) K/mcL Neutrophils # 9.1 H (1.6-8.9) K/mcL BMP 03/15/17 03:07 Sodium 140 Potassium 4.1 Chloride 106 Carbon Dioxide 25 BUN 15 Creatinine 0.83 Glucose 108 H Calcium 8.2 L - ABG Interpretation ABG results: PT/INR, D-dimer PT 16.3 Seconds (9.4-12.1) H 03/13/17 13:22 - Impressions Impressions Echocardiogram Limited Views 03/14/17 13:13 Impressions: LVEF 45-50%. LV systolic function is low normal to mildly reduced with regional variations. Visually, the LV is dilated although measurements were not well obtained. RV is not fully evaluated on this limited study. Visually, it appears dilated with normal function. Bi-atrial enlargement. Device lead is present. Left Ventricular Wall Motion: Rest Echo Findings The mid anterior lateral, basal anterior lateral and basal inferior lateral mack were hypokinetic. The mid anterior septal and mid inferior lateral mack were not visualized. All other wall segments showed normal motion. Findings: Study Quality * Technically adequate exam. ECG Findings * Unclear underlying rhythm - artifact. Left Ventricle * Possibly asymmetric septal hypertrophy although measurements were not well obtained. * Visually, the LV is dilated although measurements we will not well obtained. * LVEF 45-50%. Right Ventricle * RV is not fully evaluated on this limited study. Visually, it appears dilated with normal function. Left Atrium * Severely dilated left atrium. Right Atrium * Moderately dilated right atrium. Device lead * A device lead was visualized in the right atrium and right ventricle. - Attending Attestation I examined this patient and my medical decision-making was reviewed with the Resident Physician. I agree with the documented findings, disposition and treatment plan as described except to the extent set forth below. TMs. Rodarte is a 71 year old female with PMH of COPD, systolic CHF, CMP, A-Fib on Eliquis, CAD with hx CABG and PCI, HLD, Pacemaker AICD, and JORGE who presented to [facility] ER with worsening SOB, Cough, as well concerned about AICD got fired. She denied any CP now. SOB also improved. No fever / chills. Feeling lot better today Gen: A, A, O x 3 Chest: Diminished BS b/l, No crackles No rales mild wheezing Heart: S1 S2 + a/p 1. Acute COPD exacerbation 2. Chronic hypoxic resp failure 3. Aspiration pneumonia Improving..WBC started trending down Switched to PO abx Augmentin 4. Elevated troponin Flat elevated Trop She denied any active CP now cont other home meds 5. Chronic systolic heart failure not in exacerbation resumed home diuretics
[2017-03-15] MEDS ORDERED: Ipratropium/Albuterol Neb 3 ML IH PRN (11:49)
[2017-03-15] MEDS: Furosemide 40 MG TABLET PO SCH ×2 (14:28→17:57)
[2017-03-15] MEDS: *HR* Digoxin 0.125 MG TABLET PO SCH (19:53)
[2017-03-16 04:42] LABS: Basophils % 0.2 %; Eosinophils # 0.1 K/mcL (0.0-0.6); Eosinophils % 0.5 %; Hematocrit 30.7 % (35.3-44.9); Hemoglobin 9.6 g/dL (11.5-15.4); Immature Granulocytes % 1.1 % (0-4); Lymphocytes % 17.6 %; Mean Corpuscular HGB Conc 31.3 g/dL (31.6-35.5); Mean Corpuscular Hemoglobin 29.9 pg (28.0-33.3); Mean Corpuscular Volume 95.6 fL (83.0-100.0); Mean Platelet Volume 10.8 fL (9.4-12.4); Monocytes # 0.8 K/mcL (0.0-1.3); Monocytes % 7.3 %; Neutrophils # 8.4 K/mcL (1.6-8.9); Platelet Count 264 K/mcL (140-400); Red Blood Count 3.21 M/mcL (3.82-4.97); Red Cell Distribution Width 14.7 % (11.5-14.5); Segmented Neutrophils % 73.3 %
--- NOTE | 2017-03-16 07:07 | Discharge Summary ---
<NamJuan - Last Filed: 03/16/17 12:39> Date of Encounter: 03/16/17 Time of Encounter: 08:16 - Discharge Diagnosis (1) COPD exacerbation Priority: Primary Status: Acute Comments: stable -- treated for possible aspiration pneumonia cont abx as prescribed (2) Elevated troponin Priority: Secondary Status: Acute Comments: ACS unlikely; stable without symptoms (3) Congestive heart failure Priority: Secondary Status: Suspected Comments: stable Qualifiers: Congestive heart failure type: unspecified congestive heart failure type Congestive heart failure chronicity: acute Qualified Code(s): I50.9 - Heart failure, unspecified (4) CAD (coronary artery disease) Priority: Secondary Status: Chronic Comments: chronic / stable Qualifiers: Coronary Disease-Associated Artery/Lesion type: bypass graft [place] vs. transplanted heart: [place] heart Associated angina: without angina Qualified Code(s): I25.810 - Atherosclerosis of coronary artery bypass graft(s) without angina pectoris (5) Type 2 diabetes mellitus Priority: Secondary Status: Chronic Comments: d/c on usual home meds Qualifiers: Diabetes mellitus complication status: without complication Diabetes mellitus termite helper insulin use: without termite helper use Qualified Code(s): E11.9 - Type 2 diabetes mellitus without complications (6) DVT prophylaxis Priority: Secondary Status: Acute - Discharge Medications Prescriptions: Amoxicillin/Clavulanate [Augmentin] 875 mg PO BIDWM 3 Days #6 tablet Home Medications: Apixaban [Eliquis] 5 mg PO BID 08/04/16 [History] Clopidogrel [Plavix] 75 mg PO DAILY 08/04/16 [History] Ferrous Sulfate 325 mg PO DAILY 08/04/16 [History] Fluticasone/Salmeterol [Advair 500-50 Diskus] 1 puff IH BID 08/04/16 [History] Pantoprazole Sodium [Protonix] 40 mg PO DAILY 08/04/16 [History] Pravastatin Sodium [Pravachol] 80 mg PO HS 08/04/16 [History] Oxygen 3 l NS CONT 12/06/16 [History] Metoprolol XL (24 HR) Succ [Toprol Xl] 25 mg PO DAILY #30 12/10/16 [Rx] metFORMIN [Glucophage] 500 mg PO DAILY #30 tablet 12/10/16 [Rx] Acetaminophen/Diphenhydramine [Acetaminophen Pm Caplet] 2 tab PO HS 02/04/17 [ History] Digoxin [Lanoxin] 0.125 mg PO MOTUWETHFR 02/04/17 [History] Sennosides [Senna] 8.6 mg PO DAILY PRN 02/04/17 [History] Spironolactone [Aldactone] 12.5 mg PO BID 02/04/17 [History] Ipratropium/Albuterol Neb [Duoneb] 3 ml IH Q6HR 02/27/17 [History] Furosemide [Lasix] 40 mg PO BID 03/13/17 [History] predniSONE [PredniSONE] 10 mg PO DAILY 03/13/17 [History] Amoxicillin/Clavulanate [Augmentin] 875 mg PO BIDWM 3 Days #6 tablet 03/16/17 [ Rx] Allergies/Adverse Reactions: 3 Allergy/AdvReac Type Severity Reaction Status Date / Time bupropion [From Wellbutrin] Allergy Swelling Verified 02/27/17 17:24 of Lip/Tongue/Throat Sulfa (Sulfonamide Allergy Hives Verified 02/27/17 17:24 Antibiotics) Varenicline [From Chantix] Allergy Swelling Verified 02/27/17 17:24 of Lip/Tongue/Throat Iodinated Contrast- Oral and AdvReac See Verified 02/27/17 17:24 IV Dye Comments [Iodinated Contrast Media - Oral and] tape Allergy Hives Uncoded 02/27/17 17:24 Procedures/tests Complete & Pending: Procedures Performed prior 72 hours Category Date Time Status EV limited echocardiogram Routine Y 03/14/17 13:13 Completed Date of admission: 03/14/17 07:55 Primary care physician: Hal Monroy MD Consults: 03/14/17 10:26 Consult to Cardiology [CONS] Routine Comment: Consulting Provider: Cardiology [place] Reason for Consult: elevated troponins on heparin infusion for possible NSTEMI; significant cardiac history Time Notified: 10:27 Call Completed: Yes Discharging clinician: Juan Browning Anticipated date of discharge: 03/16/17 - Patient Status Disposition: Home, Self-Care Condition: Good Functional capacity at discharge: uses cane/walker Overall status at discharge: patient is back to baseline - Discharge Instructions Instructions: Amoxicillin/Clavulanate Potassium (By mouth), Pacemaker (DC) Follow Up With: Hal Monroy MD [Primary Care Provider] - 11/09/17 9:15 am Juan Suarez CNP [Advanced Practice Nurse] - (OFFICE WILL CALL PATIENT AT HOME WITH FOLLOW UP APPOINTMENT) Additional Instructions: Please follow up with your primary care provider within 1-2 weeks Please follow up with your associate buyer within 1-2 weeks Adhere to a low sodium diet Continue your antibiotics as prescribed until complete Call your PCP for any concerns Return to ER for further evaluation if you have any return of chest pain or other symptoms as we have discussed - Diet and Activity Activity: as per physical therapy, increase activity as tolerated Diet: low salt diet Interval History: VSS overnight. No events per nursing. PT/OT support home d/c. H/H stable and somewhat improved. Patient is without any new symptoms or acute complaints and states is at baseline breathing. Overall, subjectively feels better. Hospital course: Ms. Rodarte is a 71 year old female with medical history of CAD, DM-II, CHF, A-fib , and 02 dependent COPD who is admitted for acute respiratory failure and chest pain. Initial evaluation demonstrated elevated troponins with EKG negative for ischemic findings. Patient was started on heparin drip in ED and troponins were trended and plateaued. Network Field Engineer consult on case and ultimately patient opted for medical management without any C evaluation. Per cardiology consult, elevated troponins unlikely to be due to ACS, rather, more likely due to demand ischemia. Patient also expressed that she was having difficulty swallowing, and in context of acute respiratory failure, patient has been treated for aspiration pneumonia despite negative chest x-ray. Repeat echocardiogram demonstrated improved LVEF currently at 45-50% as compared to prior study. Patient symptomatically improved at baseline oxygenation and otherwise stable. PT/OT considered patient safe for home discharge and did not recommend SNF placement. Patient discharged home in good/stable condition. Time spent discussing smoking cessation with patient: 3 to 10 minutes - Time Spent with Patient Total time spent providing and/or coordinating discharge services: Less than 30 minutes - Constitutional Vitals: Temp Pulse Resp BP Pulse Ox 98.6 F 76 16 114/54 99 03/16/17 04:12 03/16/17 04:12 03/16/17 04:12 03/16/17 04:12 03/16/17 04:12 General appearance: Present: A&O X 3, pleasant, no acute distress, answers questions appropriately - Head Head exam: Present: atraumatic, normocephalic - Eye Eye exam: Present: conjuntiva pink, sclera anicteric - Neck Neck exam general surgery: Present: supple, trachea midline. Absent: lymphadenopathy - Respiratory Respiratory exam: Present: CTAB. Absent: accessory muscle use, decreased breath sounds, prolonged expiratory phase, rales, respiratory distress, rhonchi , wheezes, tachypnea - Cardiovascular Cardiovascular exam: Present: RRR, +S1, +S2. Absent: diastolic murmur, gallop, rubs, +S3, +S4, systolic murmur, tachycardia - Extremities Exam Extremities exam: Present: pedal edema (Trace and unchanged from prior exam), warm, radial pulses palpable and symmetrical. Absent: calf tenderness, cyanotic - Neurological Exam Neurological exam: Present: no focal deficits. Absent: facial droop, speech deficit - Skin Skin exam: Present: dry, intact, normal color. Absent: cyanosis, diaphoretic, mottled, pallor <ThalRamiro sams - Last Filed: 03/16/17 16:16> Date of Encounter: 03/16/17 Procedures/tests Complete & Pending: Procedures Performed prior 72 hours Category Date Time Status EV limited echocardiogram Routine Y 03/14/17 13:13 Completed Date of admission: 03/14/17 07:55 Primary care physician: Hal Monroy MD Consults: 03/14/17 10:26 Consult to Cardiology [CONS] Routine Comment: Consulting Provider: Cardiology [place] Reason for Consult: elevated troponins on heparin infusion for possible NSTEMI; significant cardiac history Time Notified: 10:27 Call Completed: Yes Hospital course: Ms. Rodarte is a 71 year old female - Time Spent with Patient Total time spent providing and/or coordinating discharge services: - Constitutional Vitals: Temp Pulse Resp BP Pulse Ox 98.4 F 88 16 100/56 96 03/16/17 07:24 03/16/17 09:41 03/16/17 09:41 03/16/17 07:24 03/16/17 09:41 - Attending Attestation I examined this patient and my medical decision-making was reviewed with the Resident Physician. I agree with the documented findings, disposition and treatment plan as described except to the extent set forth below. TMs. Cayden is a 71 year old female with PMH of COPD, systolic CHF, CMP, A-Fib on Eliquis, CAD with hx CABG and PCI, HLD, Pacemaker AICD, and JORGE who presented to [facility] ER with worsening SOB, Cough, as well concerned about AICD got fired. She denied any CP now. SOB also improved. No fever / chills. Feeling lot better today Gen: A, A, O x 3 Chest: Diminished BS b/l, No crackles No rales mild wheezing Heart: S1 S2 + a/p 1. Acute COPD exacerbation 2. Chronic hypoxic resp failure 3. Aspiration pneumonia Improved..WBC started trending down Switched to PO abx Augmentin 4. Elevated troponin Flat elevated Trop cont home meds 5. Chronic systolic heart failure not in exacerbation resumed home diuretics
[2017-03-16 07:26] VITALS: BP 100/56
[2017-03-16] MEDS: Insulin LISPRO 300 UNITS/3 ML VIAL SQ SCH (08:00)
[2017-03-16] MEDS: Spironolactone 25 MG TABLET PO SCH (08:01)
[2017-03-16] MEDS: Thiamine (B-1) 100 MG TABLET PO SCH (08:02)
[2017-03-16] MEDS: APIXABAN 5 MG TABLET PO SCH (08:02)
[2017-03-16] MEDS: Furosemide 40 MG TABLET PO SCH (08:02)
[2017-03-16] MEDS: Metoprolol XL (24 HR) Succ 25 MG TAB.ER.24H PO SCH (08:03)
[2017-03-16] MEDS: Budesonide/Formoterol 160/4.5 MDI IH SCH (08:06)
== END 2017-03-16 12:36 | disposition home or self-care (01) | DRG 177 ==
LOC: 2NNU 12:40 → EMEROO 12:40 → 2NNU 18:00
PROVIDERS: ADMIT Family Medicine; ATTEND Family Medicine

== ENCOUNTER 2017-04-15 08:12 | Inpatient (IN) ==
[2017-04-15] MEDS ORDERED: Sennosides 8.6 MG TABLET PO PRN (12:25)
[2017-04-15] MEDS ORDERED: Naloxone 0.4 MG/ML INJ IVP PRN (12:36)
[2017-04-15 12:37] LABS: Basophils # 0.1 K/mcL (0.0-0.2); Basophils % 0.3 %; Hematocrit 39.5 % (35.3-44.9); Hemoglobin 12.5 g/dL (11.5-15.4); Immature Granulocytes % 2.2 % (0-4); Immature Platelets 8.4 % (1.1-6.1); Lymphocytes # 0.8 K/mcL (0.6-4.6); Lymphocytes % 4.6 %; Mean Corpuscular HGB Conc 31.6 g/dL (31.6-35.5); Mean Corpuscular Hemoglobin 30.3 pg (28.0-33.3); Mean Corpuscular Volume 95.6 fL (83.0-100.0); Mean Platelet Volume 10.9 fL (9.4-12.4); Monocytes # 0.5 K/mcL (0.0-1.3); Monocytes % 2.6 %; Neutrophils # 16.3 K/mcL (1.6-8.9); Platelet Count 251 K/mcL (140-400); Red Blood Count 4.13 M/mcL (3.82-4.97); Red Cell Distribution Width 15.1 % (11.5-14.5); Segmented Neutrophils % 90.3 %
[2017-04-15 12:51] LABS: Albumin 3.1 g/dL (3.5-5.0); Albumin/Globulin Ratio 0.8 (1.1-2.2); Bilirubin,Total 0.4 mg/dL (0.2-1.2); Calcium 9.4 mg/dL (8.6-10.8); Globulin 3.9 g/dL (2.4-3.5)
[2017-04-15] MEDS ORDERED: D5% in Water 1,000 ML IVC PRN (12:58)
[2017-04-15] MEDS ORDERED: *HR* Dextrose 50 % in Water (Syg) 50 ML SYRINGE IVP PRN (12:58)
[2017-04-15] MEDS ORDERED: Dextrose Gel 15 GM PO PRN ×2 (12:58)
[2017-04-15] MEDS ORDERED: Vancomycin 1,000 MG in D5% in Water 250 ML IVPB SCH (13:00)
[2017-04-15] MEDS ORDERED: NON-FORMULARY MEDICATION 1 EACH EACH (Oxygen [Oxygen] 3 L) NS SCH (13:15)
--- NOTE | 2017-04-15 13:25 | Event Note ---
Date of Encounter: 04/15/17 Time of Encounter: 13:22 Patient and examined with nurse practitioner. Patient on chronic prednisone 10 mg daily for 4 years, was sent to the hospital is a direct admit after 2 out of 2 cultures group gram-positive cocci enterococcus. Cultures were done because of persistent leukocytosis. No clear source of infection. However because this was in both cultures, will do pancultures, start patient empirically on vancomycin.
[2017-04-15 14:45] LABS: Bilirubin,Urine Negative (Negative); Blood,Urine Negative (Negative); Clarity,Urine Clear (Clear); Color,Urine Yellow (Yellow); Glucose,Urine (UA) Normal (Normal); Ketones,Urine Negative (Negative); Leukocyte Esterase,Urine Negative (Negative); Nitrite,Urine Negative (Negative); Protein,Urine Negative (Neg-Trace); Specific Gravity,Urine 1.022 (1.010-1.025); Urobilinogen,Urine Normal (Normal)
--- NOTE | 2017-04-15 15:47 | Internal Med History&Physical ---
Date of Encounter: 04/15/17 Time of Encounter: 15:41 Assessment and Plan (1) Positive blood cultures Current visit: Yes Status: Acute Positive blood cultures 2 growing gram-positive cocci. One of the cultures preliminary result of enterococcus. Still awaiting final results. Patient has chronic with leukocytosis, she is on daily oral steroids. He does not appear toxic, and is hemodynamically stable. No obvious source of infection, however treated also resulting cultures 2 hour pancultures Start empiric vancomycin-follow cultures and narrow as appropriate (2) Acute exacerbation of CHF (congestive heart failure) Current visit: Yes Status: Acute History of cardiomyopathy, mid anterior lateral, basal anterior lateral and basilar inferior lateral ulcer hypokinetic. Continues to endorse difficulty breathing, bilateral lower extremity swelling without obvious pitting edema, rales auscultated throughout bilaterally. However, chest x-ray did not show any pulmonary vascular congestion. Is on oral Lasix twice a day. Due to continued respiratory distress and auscultation of rales start Lasix 40 mg IV push twice a day. Continuous telemetry, continuous O2 monitoring Qualifiers: Congestive heart failure type: unspecified congestive heart failure type Qualified Code(s): I50.9 - Heart failure, unspecified (3) Leukocytosis Current visit: Yes Status: Chronic Chronic leukocytosis. Patient chronically on oral prednisone daily. However due to positive blood cultures 2 with gram-positive cocci suspect enterococcus will continue to trend WBCs. CBC in the morning Qualifiers: Leukocytosis type: unspecified Qualified Code(s): D72.829 - Elevated white blood cell count, unspecified (4) DVT prophylaxis Current visit: Yes Status: Acute On eliquis and plavix. Continue Internal Medicine - H&P: HPI Chief complaint: Blood cultures growing gram-positive cocci, leukocytosis Admitted From: Home Plans for Post Hospital Care: Home History of present illness: Ms. Rodarte is a 72 year old female with a PMH of CHF, HLD, DM, HTN, COPD and atrial fibrillation, CAD and cardiomyopathy. She is being admitted to [facility] today following a recent admission for pacemaker interrogation. During that admission the patient was noted to have leukocytosis which is likely chronic, blood cultures were obtained and first culture grew gram-positive cocci. She was discharged with doxycycline and blood cultures were being followed. Second cultures grew gram-positive cocci while first cultures resulted with enterococcus. There is some suspicion for contamination but due to blood cultures X2 showing gram-positive cocci she is being brought in for antibiotic administration. She denies any fever, chills, chest pain, dysuria, back pain. She admits to some shortness of breath and a dry cough for the last 3 weeks. She reports that the cough is not getting any worse but is also not getting any better. Past Med Surg Social Fam HX - Past Medical History Medical history: arthritis, atrial fibrillation, CHF, COPD, coronary artery disease, diabetes, hypertension, myocardial infarction Psychiatric history: anxiety, depression - Past Surgical History Surgical History: angioplasty/stent, coronary bypass (CABG), hysterectomy, pacemaker/AICD - Social History Smoking Status: Current every day smoker Smokeless Tobacco Status: No Alcohol use: none Drug use: none - Family History Father Adopted: [place]: Mikhail Allen Family Member Ethnicity: Non- Living Status: Age at : 38 Cause of : heart attack Hx Family Cardiac Disorders: Yes Hx Family Respiratory Disorders: No Hx Family Cancer: No Hx Family GI Disorders: No Hx Family Endocrine Disorder: No Hx Family Neuromuscular Disorders: No Hx Family Neurologic Disorders: No Hx Family HEENT Disorders: No Hx Family Autoimmune Disorders: No Mother Living Status: Hx Family Endocrine Disorder: Yes (DM) Internal Medicine - H&P: Meds Apixaban [Eliquis] 5 mg PO BID 08/04/16 [History] Clopidogrel [Plavix] 75 mg PO DAILY 08/04/16 [History] Ferrous Sulfate 325 mg PO DAILY 08/04/16 [History] Fluticasone/Salmeterol [Advair 500-50 Diskus] 1 puff IH BID 08/04/16 [History] Pantoprazole Sodium [Protonix] 40 mg PO DAILY 08/04/16 [History] Pravastatin Sodium [Pravachol] 80 mg PO HS 08/04/16 [History] Oxygen 3 l NS CONT 12/06/16 [History] Metoprolol XL (24 HR) Succ [Toprol Xl] 25 mg PO DAILY #30 12/10/16 [Rx] metFORMIN [Glucophage] 500 mg PO DAILY #30 tablet 12/10/16 [Rx] Acetaminophen/Diphenhydramine [Acetaminophen Pm Caplet] 2 tab PO HS 02/04/17 [ History] Digoxin [Lanoxin] 0.125 mg PO MOTUWETHFR 02/04/17 [History] Sennosides [Senna] 8.6 mg PO PRN PRN 02/04/17 [History] Spironolactone [Aldactone] 12.5 mg PO BID 02/04/17 [History] Ipratropium/Albuterol Neb [Duoneb] 3 ml IH Q6HR 02/27/17 [History] Furosemide [Lasix] 40 mg PO BID 03/13/17 [History] Doxycycline 100 mg PO BID #10 capsule 04/13/17 [Rx] predniSONE [PredniSONE] 10 mg PO DAILY 8 Days tablet 04/13/17 [Rx] 3 Allergy/AdvReac Type Severity Reaction Status Date / Time bupropion [From Wellbutrin] Allergy Swelling Verified 04/11/17 12:53 of Lip/Tongue/Throat Sulfa (Sulfonamide Allergy Hives Verified 04/11/17 12:53 Antibiotics) Varenicline [From Chantix] Allergy Swelling Verified 04/11/17 12:53 of Lip/Tongue/Throat Iodinated Contrast- Oral and AdvReac See Verified 04/11/17 12:53 IV Dye Comments [Iodinated Contrast Media - Oral and] tape Allergy Hives Uncoded 04/11/17 12:53 All Systems PM: A 10-system review of systems was performed and is negative for pertinent findings except as documented above in the HPI. - Constitutional Constitutional: fatigue, no chills, no fever(s), no night sweats - EENT Nose, mouth and throat: no nasal congestion, no nasal discharge, no sore throat - Cardiovascular Cardiovascular ROS IM: dyspnea, dyspnea on exertion (Increases with exertion), no chest pain, no diaphoresis, no edema, no lightheadedness, no palpitations, no syncope - Respiratory Respiratory: cough (Nonproductive), dyspnea, dyspnea on exertion, chest congestion, no hemoptysis, no wheezing, no pain on inspiration, no excessive phlegm production, no change in phlegm color, no pain with cough - Gastrointestinal Gastrointestinal: no abdominal pain, no diarrhea, no hematemesis, no hematochezia, no melena, no nausea, no vomiting - Genitourinary Genitourinary: no change in urinary stream, no dysuria, no flank pain, no hematuria - Musculoskeletal Musculoskeletal ROS IM: no numbness, no tingling - Integumentary Integumentary IM: new lesions Additional comments: Healing skin lesion on right forearm caused by scratching her dog - Constitutional Vitals: Temp Pulse Resp BP Pulse Ox 98.1 F 79 17 153/73 94 04/15/17 10:59 04/15/17 10:59 04/15/17 10:59 04/15/17 10:59 04/15/17 10:59 General appearance: Present: cooperative, A&O X 3, no acute distress, answers questions appropriately - Head Head exam: Present: atraumatic, normocephalic - Neck Neck exam general surgery: Present: supple, trachea midline. Absent: lymphadenopathy - Respiratory Respiratory exam: Present: CTAB, prolonged expiratory phase, rales, tachypnea. Absent: accessory muscle use, rhonchi, wheezes Additional comments: pursed lip breathing; patient states this is her normal, not hypoxic - Cardiovascular Cardiovascular exam: Present: RRR, +S1, +S2. Absent: diastolic murmur, gallop, rubs, systolic murmur - GI/Abdominal GI/Abdominal exam: Present: normal bowel sounds, soft, no peritoneal signs. Absent: distended, tenderness - Extremities Exam Extremities exam: Present: warm, radial pulses palpable and symmetrical. Absent : calf tenderness, cyanotic, pedal edema - Neurological Exam Neurological exam: Present: alert, oriented X3. Absent: pronater drift, facial droop, speech deficit Internal Med - H&P Results - Labs CBC & Chem 7: 04/15/17 12:29 04/15/17 12:29 Labs: Short CBC 04/15/17 Range/Units 12:29 WBC 18.0 H (4.3-11.1) K/mcL Hgb 12.5 (11.5-15.4) g/dL Hct 39.5 (35.3-44.9) % Plt Count 251 (140-400) K/mcL Neutrophils # 16.3 H (1.6-8.9) K/mcL BMP 04/15/17 12:29 Sodium 140 Potassium 4.0 Chloride 101 Carbon Dioxide 31 H BUN 35 H Creatinine 1.22 H Glucose 204 H Calcium 9.4 Liver Function 04/15/17 Range/Units 12:29 Total Bilirubin 0.4 (0.2-1.2) mg/dL AST 14 (5-34) Units/L ALT 23 (0-55) Units/L Alkaline Phosphatase 63 (38-126) Units/L Albumin 3.1 L (3.5-5.0) g/dL Urine 04/15/17 Range/Units 13:43 Urine Color Yellow (Yellow) Urine Clarity Clear (Clear) Urine pH 6.0 (5.0-8.0) pH Units Ur Specific [place] 1.022 (1.010-1.025) Urine Protein Negative (Neg-Trace) mg/dL Urine Glucose (UA) Normal (Normal) mg/dL - Impressions ITS Impressions Chest X-Ray 04/15/17 13:00 IMPRESSION: No acute finding or interval change. D/ / Ramon Ribeiro MD / Ramon Ribeiro MD Interpreting Provider: Ramon Ribeiro MD - Diagnostic Studies Chest x-ray Status: image reviewed by me Additional comments: No acute pulmonary process, no interval changes
[2017-04-15] MEDS: Insulin LISPRO 300 UNITS/3 ML VIAL SQ SCH ×2 (17:52→20:30)
[2017-04-15] MEDS: Furosemide 40 MG/4 ML VIAL IVP SCH (17:53)
[2017-04-15] MEDS ORDERED: Ipratropium/Albuterol Neb 3 ML IH SCH (18:00)
[2017-04-15] MEDS: Nicotine 14 MG PATCH.TD24 TD SCH (20:18)
[2017-04-15] MEDS: APIXABAN 5 MG TABLET PO SCH (20:18)
[2017-04-15] MEDS: Spironolactone 25 MG TABLET PO SCH (20:18)
[2017-04-15] MEDS: DIPHENHYDRAMINE PO SCH (20:29)
[2017-04-15] MEDS: ACETAMINOPHEN PO SCH (20:29)
[2017-04-15] MEDS ORDERED: Furosemide 40 MG TABLET PO SCH (21:00)
[2017-04-15] MEDS: Budesonide/Formoterol 160/4.5 MDI IH SCH (22:07)
[2017-04-16] MEDS: Ipratropium/Albuterol Neb 3 ML IH SCH ×4 (04:23→22:53)
[2017-04-16 04:53] LABS: Basophils % 0.2 %; Eosinophils % 0.2 %; Hemoglobin 11.1 g/dL (11.5-15.4); Immature Granulocytes % 1.4 % (0-4); Lymphocytes # 2.6 K/mcL (0.6-4.6); Lymphocytes % 21.8 %; Mean Corpuscular HGB Conc 31.7 g/dL (31.6-35.5); Mean Corpuscular Hemoglobin 30.4 pg (28.0-33.3); Mean Corpuscular Volume 95.9 fL (83.0-100.0); Mean Platelet Volume 10.9 fL (9.4-12.4); Monocytes # 0.9 K/mcL (0.0-1.3); Monocytes % 7.2 %; Neutrophils # 8.4 K/mcL (1.6-8.9); Platelet Count 198 K/mcL (140-400); Red Blood Count 3.65 M/mcL (3.82-4.97); Segmented Neutrophils % 69.2 %
[2017-04-16 05:07] LABS: Alanine Aminotransferase 20 Units/L (0-55); Albumin 2.7 g/dL (3.5-5.0); Albumin/Globulin Ratio 0.9 (1.1-2.2); Alkaline Phosphatase 50 Units/L (38-126); Aspartate Amino Transferase 11 Units/L (5-34); BUN/Creatinine Ratio 30 (6-26); Bilirubin,Total 0.4 mg/dL (0.2-1.2); Blood Urea Nitrogen 32 mg/dL (7-20); Calcium 9.1 mg/dL (8.6-10.8); Carbon Dioxide 38 mEq/L (19-29); Chloride 103 mEq/L (98-109); Globulin 2.9 g/dL (2.4-3.5); Glucose 102 mg/dL (70-99); Osmolality,Calculated 305 (280-300); Potassium 3.9 mEq/L (3.5-4.5); Sodium 144 mEq/L (136-145); Total Protein 5.6 g/dL (6.0-8.3); eGFR For African Americans > 60 (> 60); eGFR For Non-African Americans 51 (> 60)
[2017-04-16] MEDS: predniSONE 10 MG TABLET PO SCH (08:06)
[2017-04-16] MEDS: Spironolactone 25 MG TABLET PO SCH ×2 (08:06→20:32)
[2017-04-16] MEDS: Metoprolol XL (24 HR) Succ 25 MG TAB.ER.24H PO SCH (08:06)
[2017-04-16] MEDS: APIXABAN 5 MG TABLET PO SCH ×2 (08:07→20:33)
[2017-04-16] MEDS: Nicotine 14 MG PATCH.TD24 TD SCH (08:07)
[2017-04-16] MEDS: Furosemide 40 MG/4 ML VIAL IVP SCH ×2 (08:07→16:37)
[2017-04-16] MEDS: Insulin LISPRO 300 UNITS/3 ML VIAL SQ SCH ×4 (08:09→20:37)
[2017-04-16] MEDS: Budesonide/Formoterol 160/4.5 MDI IH SCH ×2 (10:52→22:53)
[2017-04-16] MEDS: *HR* Digoxin 0.125 MG TABLET PO SCH (11:45)
--- NOTE | 2017-04-16 12:08 | Internal Med Progress Note ---
Date of Encounter: 04/16/17 Time of Encounter: 09:25 - Assessment and plan (1) Positive blood cultures Current Visit: Yes Status: Acute Assessment and plan: Patient was recently discharged following pacemaker interrogation. During that admission, patient was noted to have leukocytosis which is likely chronic due to chronic steroid use for COPD. During that admission, blood cultures were obtained the first culture grew gram-positive cocci. She was discharged with doxycycline, blood cultures were being followed. Second set of blood cultures grew gram-positive cocci, while the first cultures resulted with enteric coccus. There was suspicion for contamination, but due to 2 sets of cultures showing gram-positive cocci she was readmitted for antibiotic administration. She denies fever, chills, chest pain, cough, back pain, or dysuria or any urinary symptoms. She does report shortness of breath and a dry cough for 3 weeks. She reports that it is not getting worse, however is not getting better either. Repeat cultures were drawn on 04/15. They are received and depending. Patient has mild leukocytosis today, I count is 12.1. On arrival white count was 18.0. There is no shift on the differential. She is afebrile, there is no tachycardia, no tachypnea, she is normotensive. She is hemodynamically stable and there is no obvious source of infection. Continue to monitor vital signs Continue vancomycin. Repeat cultures are received and pending. Continue to monitor routine labs. (2) Acute exacerbation of CHF (congestive heart failure) Current Visit: Yes Status: Acute Assessment and plan: Patient prior history of cardiomyopathy and CHF. Patient also has a pacemaker. Patient reports shortness of breath and cough for 3 weeks. She also reports an increase in her baseline shortness of breath, as well as bilateral lower extremity edema and abdominal distention. She reports today that shortness of breath, abdominal distention, and bilateral lower extremity edema have improved, she is not back to baseline and does not feel she is ready to go home yet. Chest x-ray was negative, specifically negative for pulmonary vascular congestion. Normal dose of Lasix was increased to 40 mg IV twice a day due to continued shortness of breath and auscultation of rails yesterday. Today, lungs are diminished without any rales, rhonchi, wheezing, or respiratory distress. Continue telemetry Continue O2 monitoring IV Lasix 40 mg IV twice a day Qualifiers: Congestive heart failure type: unspecified congestive heart failure type Qualified Code(s): I50.9 - Heart failure, unspecified (3) COPD exacerbation Current Visit: Yes Status: Chronic Assessment and plan: Patient with chronic COPD. Patient routinely takes by mouth steroids. Continue O2 as needed to maintain sats greater than 92% Continue steroids Continue home regimen of inhalers and nebulizers. (4) Acute and chronic respiratory failure Current Visit: Yes Status: Resolved Assessment and plan: Patient is requiring increased amount of supplemental oxygen over baseline during admission. Continue to monitor and titrate as needed. Qualifiers: Respiratory failure complication: hypoxia Qualified Code(s): J96.21 - Acute and chronic respiratory failure with hypoxia (5) Hypertension Current Visit: Yes Status: Chronic Assessment and plan: Well controlled. Continue current medication regimen. Qualifiers: Hypertension type: unspecified Qualified Code(s): I10 - Essential (primary ) hypertension (6) Steroid-dependent COPD Current Visit: Yes Status: Chronic Assessment and plan: Chronic. Patient normally takes 10 mg by mouth daily at home. Could be source of leukocytosis. (7) Diabetes type 2, controlled Current Visit: Yes Status: Chronic Assessment and plan: Well-controlled. A1c is 6.0 in March,. Continue home regimen after discharge. Sliding scale insulin, Accu-Cheks before meals at bedtime, diabetic diet while admitted. Qualifiers: Diabetes mellitus complication status: with circulatory complication Diabetes mellitus complication detail: with other circulatory complications Diabetes mellitus long term care pharmacist insulin use: without assisted use Qualified Code( s): E11.59 - Type 2 diabetes mellitus with other circulatory complications (8) Leukocytosis Current Visit: Yes Status: Chronic Assessment and plan: Improving. On arrival white cell count was 18.0, and is 12.1 today. There is no shift on the differential. Patient with chronic use of by mouth steroids for COPD. This is a potential source. At this time, there is no obvious source of infection, although blood cultures have been positive. See above. Chest x-ray is negative. Urinalysis negative. Repeat blood cultures have been drawn and are pending. Continue current IV antibiotics. Continue to monitor labs and vital signs. Qualifiers: Leukocytosis type: unspecified Qualified Code(s): D72.829 - Elevated white blood cell count, unspecified (9) DVT prophylaxis Current Visit: Yes Status: Acute Assessment and plan: Pt is on Eliquis and Plavix for a-fib and CAD. Continue home doses. - Time Spent With Patient less than 15 minutes - Subjective Interval history: Patient was seen and assessed at 9:25 AM. She was sitting up at the side of the bed, alert, awake, pleasant. She states that she was not feeling well today and feels very tired. She does state that she feels better than she did yesterday, but is not ready to go back home. She denies headache, nausea, vomiting, abdominal pain, or vision changes. She denies fever or chills. She does report abdominal distention and lower extremity edema, with some shortness of breath has improved, however she reports that she is not back to her baseline yet. We agreed that she would benefit from staying over again for continued diuresis. - Constitutional Vitals: Temp Pulse Resp BP Pulse Ox 98.3 F 88 16 138/82 95 04/16/17 11:07 04/16/17 11:07 04/16/17 11:07 04/16/17 11:07 04/16/17 11:07 General appearance: Present: cooperative, A&O X 3, pleasant, no acute distress, answers questions appropriately. Absent: severe distress - Head Head exam: Present: atraumatic, normal inspection, normocephalic - Eye Eye exam: Present: normal appearance, conjuntiva pink, sclera anicteric - Neck Neck exam general surgery: Present: supple, trachea midline. Absent: lymphadenopathy, tenderness - Respiratory Respiratory exam: Present: decreased breath sounds, CTAB. Absent: accessory muscle use, rales, respiratory distress, rhonchi, stridor, wheezes - Cardiovascular Cardiovascular exam: Present: RRR, +S1, +S2. Absent: diastolic murmur, gallop, rubs, systolic murmur - GI/Abdominal GI/Abdominal exam: Present: distended, normal bowel sounds, soft. Absent: hepatomegaly, tenderness - Extremities Exam Extremities exam: Present: pedal edema, warm, radial pulses palpable and symmetrical. Absent: calf tenderness, cyanotic, tenderness - Neurological Exam Neurological exam: Present: alert, oriented X3, no focal deficits. Absent: altered, facial droop, speech deficit - Skin Skin exam: Present: dry, intact, normal color, warm. Absent: rash Internal Medicine: Result - Labs CBC & Chem 7: 04/16/17 04:45 04/16/17 04:45 Labs: Short CBC 04/15/17 04/16/17 Range/Units 12:29 04:45 WBC 18.0 H 12.1 H (4.3-11.1) K/mcL Hgb 12.5 11.1 L (11.5-15.4) g/dL Hct 39.5 35.0 L (35.3-44.9) % Plt Count 251 198 (140-400) K/mcL Neutrophils # 16.3 H 8.4 (1.6-8.9) K/mcL BMP 04/15/17 04/16/17 12:29 04:45 Sodium 140 144 Potassium 4.0 3.9 Chloride 101 103 Carbon Dioxide 31 H 38 H BUN 35 H 32 H Creatinine 1.22 H 1.05 Glucose 204 H 102 H Calcium 9.4 9.1 Liver Function 04/15/17 04/16/17 Range/Units 12:29 04:45 Total Bilirubin 0.4 0.4 (0.2-1.2) mg/dL AST 14 11 (5-34) Units/L ALT 23 20 (0-55) Units/L Alkaline Phosphatase 63 50 (38-126) Units/L Albumin 3.1 L 2.7 L (3.5-5.0) g/dL Urine 04/15/17 Range/Units 13:43 Urine Color Yellow (Yellow) Urine Clarity Clear (Clear) Urine pH 6.0 (5.0-8.0) pH Units Ur Specific [place] 1.022 (1.010-1.025) Urine Protein Negative (Neg-Trace) mg/dL Urine Glucose (UA) Normal (Normal) mg/dL - Impressions Impressions Chest X-Ray 04/15/17 13:00 IMPRESSION: No acute finding or interval change. D/ / Ramon Ribeiro MD / Ramon Ribeiro MD Interpreting Provider: Ramon Ribeiro MD Consult Discharge Plan - Plan Referrals: Hal Monroy MD [Primary Care Provider] -
[2017-04-16] MEDS: ACETAMINOPHEN PO SCH (20:38)
[2017-04-16] MEDS: DIPHENHYDRAMINE PO SCH (20:38)
[2017-04-17] MEDS: Ipratropium/Albuterol Neb 3 ML IH SCH ×4 (03:56→22:57)
[2017-04-17 06:09] LABS: Basophils % 0.3 %; Eosinophils # 0.1 K/mcL (0.0-0.6); Eosinophils % 0.7 %; Hemoglobin 11.1 g/dL (11.5-15.4); Lymphocytes # 2.8 K/mcL (0.6-4.6); Lymphocytes % 21.8 %; Mean Corpuscular HGB Conc 31.7 g/dL (31.6-35.5); Mean Corpuscular Hemoglobin 30.2 pg (28.0-33.3); Mean Corpuscular Volume 95.4 fL (83.0-100.0); Mean Platelet Volume 10.9 fL (9.4-12.4); Monocytes # 0.9 K/mcL (0.0-1.3); Monocytes % 6.7 %; Neutrophils # 8.7 K/mcL (1.6-8.9); Platelet Count 214 K/mcL (140-400); Red Blood Count 3.67 M/mcL (3.82-4.97); Red Cell Distribution Width 14.9 % (11.5-14.5); Segmented Neutrophils % 68.5 %
[2017-04-17 06:12] LABS: BUN/Creatinine Ratio 36 (6-26); Blood Urea Nitrogen 32 mg/dL (7-20); Calcium 8.7 mg/dL (8.6-10.8); Carbon Dioxide 33 mEq/L (19-29); Chloride 101 mEq/L (98-109); Glucose 121 mg/dL (70-99); Osmolality,Calculated 302 (280-300); Potassium 3.8 mEq/L (3.5-4.5); Sodium 142 mEq/L (136-145); eGFR For African Americans > 60 (> 60); eGFR For Non-African Americans > 60 (> 60)
[2017-04-17] MEDS: Spironolactone 25 MG TABLET PO SCH ×2 (08:16→21:48)
[2017-04-17] MEDS: APIXABAN 5 MG TABLET PO SCH ×2 (08:16→21:48)
[2017-04-17] MEDS: predniSONE 10 MG TABLET PO SCH (08:16)
[2017-04-17] MEDS: Metoprolol XL (24 HR) Succ 25 MG TAB.ER.24H PO SCH (08:17)
[2017-04-17] MEDS: Nicotine 14 MG PATCH.TD24 TD SCH (08:19)
[2017-04-17] MEDS: Furosemide 40 MG/4 ML VIAL IVP SCH ×2 (08:22→18:26)
[2017-04-17] MEDS: Insulin LISPRO 300 UNITS/3 ML VIAL SQ SCH ×4 (08:23→21:40)
[2017-04-17] MEDS: Budesonide/Formoterol 160/4.5 MDI IH SCH ×2 (11:28→22:57)
[2017-04-17] MEDS: *HR* Digoxin 0.125 MG TABLET PO SCH (12:48)
--- NOTE | 2017-04-17 18:22 | Internal Med Progress Note ---
Date of Encounter: 04/17/17 Time of Encounter: 09:35 - Assessment and plan (1) Positive blood cultures Current Visit: Yes Status: Acute Assessment and plan: Patient was recently discharged following pacemaker interrogation. During that admission, patient was noted to have leukocytosis which is likely chronic due to chronic steroid use for COPD. During that admission, blood cultures were obtained the first culture grew gram-positive cocci. She was discharged with doxycycline, blood cultures were being followed. Patient was started on doxycycline 100 mg by mouth twice a day for 5 days on April 13. Patient returned for admission on April 15. Second set of blood cultures grew gram-positive cocci, while the first cultures resulted with enteric coccus. There was suspicion for contamination, but due to 2 sets of cultures showing gram-positive cocci she was readmitted for antibiotic administration. She denies fever, chills, chest pain, cough, back pain, or dysuria or any urinary symptoms. She does report shortness of breath and a dry cough for 3 weeks. She reports that it is not getting worse, however is not getting better either. Repeat cultures were drawn on 04/15, they are negative. Patient has mild leukocytosis today, white count is 12.6. On arrival white count was 18.0. There is no shift on the differential. She is afebrile, there is no tachycardia, no tachypnea, she is normotensive. She is hemodynamically stable and there is no obvious source of infection. Patient received 1 dose of vancomycin in the emergency department. Daughter is aware. Continue to monitor vital signs Repeat cultures were negative. Continue to monitor routine labs. (2) Acute exacerbation of CHF (congestive heart failure) Current Visit: Yes Status: Acute Assessment and plan: Patient prior history of cardiomyopathy and CHF. Patient also has a pacemaker. Patient reports shortness of breath and cough for 3 weeks. She also reports an increase in her baseline shortness of breath, as well as bilateral lower extremity edema and abdominal distention. She reports today that shortness of breath, abdominal distention, and bilateral lower extremity edema have improved, she is back to baseline and feels she is ready to go home yet. Chest x-ray was negative, specifically negative for pulmonary vascular congestion. Normal dose of Lasix was increased to 40 mg IV twice a day due to continued shortness of breath and auscultation of rails. Today, lungs are diminished without any rales, rhonchi, wheezing, or respiratory distress. Patient with 390 mL's out today. Patient states that her peripheral edema has greatly improved. Renal function has remained stable. Will restart patient's home dose of Lasix, 40 mg by mouth twice a day Continue telemetry Continue O2 monitoring Lasix 40 mg po twice a day Qualifiers: Congestive heart failure type: unspecified congestive heart failure type Qualified Code(s): I50.9 - Heart failure, unspecified (3) COPD exacerbation Current Visit: Yes Status: Chronic Assessment and plan: Patient with chronic COPD. Patient routinely takes by mouth steroids. This is likely the source of patient's leukocytosis Continue O2 as needed to maintain sats greater than 92% Continue steroids Continue home regimen of inhalers and nebulizers. (4) Acute and chronic respiratory failure Current Visit: Yes Status: Resolved Assessment and plan: Patient is requiring increased amount of supplemental oxygen over baseline during admission. Continue to monitor and titrate as needed. Qualifiers: Respiratory failure complication: hypoxia Qualified Code(s): J96.21 - Acute and chronic respiratory failure with hypoxia (5) Hypertension Current Visit: Yes Status: Chronic Assessment and plan: Well controlled. Continue current medication regimen. Qualifiers: Hypertension type: unspecified Qualified Code(s): I10 - Essential (primary ) hypertension (6) Steroid-dependent COPD Current Visit: Yes Status: Chronic Assessment and plan: Chronic. Patient normally takes 10 mg prednisone by mouth daily at home. Could be source of leukocytosis. (7) Diabetes type 2, controlled Current Visit: Yes Status: Chronic Assessment and plan: Well-controlled. A1c is 6.0 in March,. Continue home regimen after discharge. Continue sliding scale insulin, Accu-Cheks before meals at bedtime, diabetic diet while admitted. Qualifiers: Diabetes mellitus complication status: with circulatory complication Diabetes mellitus complication detail: with other circulatory complications Diabetes mellitus buttermaker continuous churn insulin use: without fci use Qualified Code( s): E11.59 - Type 2 diabetes mellitus with other circulatory complications (8) Leukocytosis Current Visit: Yes Status: Chronic Assessment and plan: Improving. On arrival white cell count was 18.0, and is 12.6 today. There is no shift on the differential. Patient with chronic use of by mouth steroids for COPD. This is a potential source. At this time, there is no obvious source of infection, although blood cultures have been positive. See above. Chest x-ray is negative. Urinalysis negative. Repeat blood cultures have been drawn and are pending. Continue current IV antibiotics. Continue to monitor labs and vital signs. Qualifiers: Leukocytosis type: unspecified Qualified Code(s): D72.829 - Elevated white blood cell count, unspecified (9) DVT prophylaxis Current Visit: Yes Status: Acute Assessment and plan: Pt is on Eliquis and Plavix for a-fib and CAD. Continue home doses. - Time Spent With Patient less than 15 minutes - Subjective Interval history: Patient was seen and assessed at 935 AM. Patient is alert, oriented, pleasant, answers questions appropriately. Daughter is at bedside has multiple questions. She is angry that patient had to be admitted again, she is requesting to see a physician. Alternate physicians were not available today, she will be seen by a physician tomorrow. She is upset that they were called back for admission for blood cultures and upset that patient get sent home too early. She verbalized concern her mother's blood sugar is controlled here, it is not controlled at home. We discussed appropriate ADA diet, daughter states that she is not adherent with diet guidelines or recommendations. Patient denies pain, states that she feels better. Both daughter and patient are aware the second set of blood cultures are negative. Patient was sent home on doxycycline and prednisone at last discharge. She was sent home on 100 mg by mouth twice a day for 5 days. Patient has returned to baseline as far as edema and shortness of breath. She denies cough, worsening peripheral edema, she denies fever or chills. She denies chest pain, dizziness, nausea, vomiting, diarrhea. - Constitutional Vitals: Temp Pulse Resp BP Pulse Ox 98.2 F 90 16 108/65 93 04/17/17 15:00 04/17/17 15:00 04/17/17 15:59 04/17/17 15:00 04/17/17 15:59 General appearance: Present: cooperative, A&O X 3, pleasant, no acute distress, answers questions appropriately. Absent: severe distress - Head Head exam: Present: atraumatic, normal inspection, normocephalic - Eye Eye exam: Present: normal appearance, conjuntiva pink, sclera anicteric - Neck Neck exam general surgery: Present: supple, trachea midline. Absent: lymphadenopathy, tenderness - Respiratory Respiratory exam: Present: decreased breath sounds, CTAB. Absent: accessory muscle use, chest wall tenderness, rales, respiratory distress, rhonchi, wheezes - Cardiovascular Cardiovascular exam: Present: RRR, +S1, +S2. Absent: diastolic murmur, gallop, rubs, systolic murmur - GI/Abdominal GI/Abdominal exam: Present: normal bowel sounds, soft, tenderness, no peritoneal signs. Absent: distended, hepatomegaly Additional comments: Tenderness epigastric area. Onset 2 months ago. - Extremities Exam Extremities exam: Present: pedal edema, warm, radial pulses palpable and symmetrical. Absent: calf tenderness, cyanotic, tenderness - Neurological Exam Neurological exam: Present: alert, oriented X3, no focal deficits. Absent: altered, facial droop, speech deficit - Skin Skin exam: Present: dry, intact, normal color, warm. Absent: rash Internal Medicine: Result - Labs CBC & Chem 7: 04/17/17 05:50 04/17/17 05:50 Labs: Short CBC 04/17/17 Range/Units 05:50 WBC 12.6 H (4.3-11.1) K/mcL Hgb 11.1 L (11.5-15.4) g/dL Hct 35.0 L (35.3-44.9) % Plt Count 214 (140-400) K/mcL Neutrophils # 8.7 (1.6-8.9) K/mcL BMP 04/17/17 05:50 Sodium 142 Potassium 3.8 Chloride 101 Carbon Dioxide 33 H BUN 32 H Creatinine 0.89 Glucose 121 H Calcium 8.7 Consult Discharge Plan - Plan Referrals: Hal Monroy MD [Primary Care Provider] - 04/23/17 10:30 am
[2017-04-18] MEDS: Ipratropium/Albuterol Neb 3 ML IH SCH ×4 (03:51→22:48)
[2017-04-18] MEDS: APIXABAN 5 MG TABLET PO SCH ×2 (08:42→20:28)
[2017-04-18] MEDS: Spironolactone 25 MG TABLET PO SCH ×2 (08:42→20:28)
[2017-04-18] MEDS: predniSONE 10 MG TABLET PO SCH (08:43)
[2017-04-18] MEDS: Metoprolol XL (24 HR) Succ 25 MG TAB.ER.24H PO SCH (08:43)
[2017-04-18] MEDS: Nicotine 14 MG PATCH.TD24 TD SCH (08:43)
[2017-04-18] MEDS: Furosemide 40 MG/4 ML VIAL IVP SCH ×2 (08:43→17:22)
[2017-04-18] MEDS: Insulin LISPRO 300 UNITS/3 ML VIAL SQ SCH ×4 (08:43→20:31)
[2017-04-18] MEDS: Budesonide/Formoterol 160/4.5 MDI IH SCH ×2 (11:25→22:48)
[2017-04-18] MEDS ORDERED: Vancomycin 1,000 MG in D5% in Water 250 ML IVPB ONE ×3 (11:34→15:00)
--- NOTE | 2017-04-18 11:47 | Internal Med Progress Note ---
Date of Encounter: 04/18/17 Time of Encounter: 09:00 - Assessment and plan (1) Bacteremia Current Visit: Yes Status: Acute Assessment and plan: Patient's blood cultures are positive for enterococcus back on 04/11. Those are not finalized and from what I understand, they are sent to [place] to get finalized and this will take a few days to get back. Will start vanco again till then. Will check an echo. She is refusing a CT A/P despite her daughter saying that she has had abdominal pain complaints. Repeat blood cultures have been negative this admission. (2) Hypertension Current Visit: Yes Status: Chronic Assessment and plan: c/w home meds. BP is stable. Qualifiers: Hypertension type: unspecified Qualified Code(s): I10 - Essential (primary ) hypertension (3) Acute on chronic systolic (congestive) heart failure Current Visit: No Status: Acute Assessment and plan: Decrease lasix to 40 mg IV daily c/w BB/digoxin. monitor I&Os. c/w nebs (4) Atrial fibrillation Current Visit: Yes Status: Acute Assessment and plan: c/w BB/digoxin. Patient is anticoagulated with eliquis Qualifiers: Atrial fibrillation type: chronic Qualified Code(s): I48.2 - Chronic atrial fibrillation (5) Coronary artery disease Current Visit: Yes Status: Acute Assessment and plan: c/w cardiac meds. She is on statin/plavix/BB Qualifiers: Coronary Disease-Associated Artery/Lesion type: [place] artery [place] vs. transplanted heart: unspecified whether [place] or transplanted heart Associated angina: without angina Qualified Code(s): I25.10 - Atherosclerotic heart disease of [place] coronary artery without angina pectoris (6) COPD (chronic obstructive pulmonary disease) Current Visit: No Status: Chronic Assessment and plan: c/w prednisone oral. c/w inhalers. Not in exacerbation. On chronic O2 Qualifiers: COPD type: unspecified COPD Qualified Code(s): J44.9 - Chronic obstructive pulmonary disease, unspecified (7) Type 2 diabetes mellitus Current Visit: No Status: Chronic Assessment and plan: c/w SSI. c/w accuchecks Qualifiers: Diabetes mellitus complication status: without complication Diabetes mellitus jail insulin use: without buttermaker use Qualified Code(s): E11.9 - Type 2 diabetes mellitus without complications (8) DVT prophylaxis Current Visit: Yes Status: Acute Assessment and plan: eliquis - Subjective Interval history: No acute event. Patient really has no complaints. She has been afebrile. She apparently has not been on abx since admit for some reason but she did receive vanco on admission. She is angry and aggressive this morning and it was my first encounter with her. - Constitutional Vitals: Temp Pulse Resp BP Pulse Ox 97.9 F 69 20 124/62 96 04/18/17 11:02 04/18/17 11:02 04/18/17 11:02 04/18/17 11:02 04/18/17 11:02 General appearance: Present: cooperative, A&O X 3, pleasant, no acute distress, answers questions appropriately Exam: GEN: NAD CVS: RRR. S1, S2, No m/r/g RESP: CTAB ABD: Soft, NT, ND, +BS EXT: No edema. 2+ DP NEURO: Nonfocal Internal Medicine: Result - Labs CBC & Chem 7: 04/18/17 14:30 04/18/17 14:30 Consult Discharge Plan - Plan Referrals: Hal Monroy MD [Primary Care Provider] - 04/23/17 10:30 am
[2017-04-18] MEDS: *HR* Digoxin 0.125 MG TABLET PO SCH (12:36)
[2017-04-18 14:42] LABS: Basophils % 0.2 %; Eosinophils % 0.1 %; Hematocrit 36.7 % (35.3-44.9); Hemoglobin 11.6 g/dL (11.5-15.4); Immature Granulocytes % 2.1 % (0-4); Lymphocytes # 0.9 K/mcL (0.6-4.6); Lymphocytes % 5.1 %; Mean Corpuscular HGB Conc 31.6 g/dL (31.6-35.5); Mean Corpuscular Hemoglobin 30.3 pg (28.0-33.3); Mean Corpuscular Volume 95.8 fL (83.0-100.0); Mean Platelet Volume 10.8 fL (9.4-12.4); Monocytes # 0.6 K/mcL (0.0-1.3); Monocytes % 3.7 %; Neutrophils # 14.7 K/mcL (1.6-8.9); Platelet Count 223 K/mcL (140-400); Red Blood Count 3.83 M/mcL (3.82-4.97); Red Cell Distribution Width 14.9 % (11.5-14.5); Segmented Neutrophils % 88.8 %
[2017-04-18 14:50] LABS: Calcium 8.5 mg/dL (8.6-10.8); Potassium 4.2 mEq/L (3.5-4.5)
[2017-04-19 03:16] LABS: Basophils % 0.2 %; Eosinophils # 0.1 K/mcL (0.0-0.6); Eosinophils % 0.6 %; Hematocrit 35.1 % (35.3-44.9); Hemoglobin 11.4 g/dL (11.5-15.4); Lymphocytes # 2.4 K/mcL (0.6-4.6); Mean Corpuscular HGB Conc 32.5 g/dL (31.6-35.5); Mean Corpuscular Hemoglobin 31.1 pg (28.0-33.3); Mean Corpuscular Volume 95.9 fL (83.0-100.0); Mean Platelet Volume 10.6 fL (9.4-12.4); Monocytes # 0.9 K/mcL (0.0-1.3); Monocytes % 6.2 %; Neutrophils # 10.6 K/mcL (1.6-8.9); Platelet Count 214 K/mcL (140-400); Red Blood Count 3.66 M/mcL (3.82-4.97); Red Cell Distribution Width 14.8 % (11.5-14.5)
[2017-04-19 03:27] LABS: Calcium 8.7 mg/dL (8.6-10.8); Potassium 3.7 mEq/L (3.5-4.5)
[2017-04-19] MEDS: Ipratropium/Albuterol Neb 3 ML IH SCH ×4 (03:30→21:22)
[2017-04-19] MEDS: Insulin LISPRO 300 UNITS/3 ML VIAL SQ SCH ×4 (09:50→21:01)
[2017-04-19] MEDS: Furosemide 40 MG/4 ML VIAL IVP SCH ×2 (09:52→17:53)
[2017-04-19] MEDS: predniSONE 10 MG TABLET PO SCH (09:53)
[2017-04-19] MEDS: APIXABAN 5 MG TABLET PO SCH ×2 (09:54→21:03)
[2017-04-19] MEDS: Spironolactone 25 MG TABLET PO SCH ×2 (09:54→21:03)
[2017-04-19] MEDS: Nicotine 14 MG PATCH.TD24 TD SCH (09:54)
[2017-04-19] MEDS: Metoprolol XL (24 HR) Succ 25 MG TAB.ER.24H PO SCH (09:54)
[2017-04-19] MEDS: Budesonide/Formoterol 160/4.5 MDI IH SCH ×2 (10:43→21:21)
--- NOTE | 2017-04-19 10:59 | Internal Med Progress Note ---
Date of Encounter: 04/19/17 Time of Encounter: 10:50 - Assessment and plan (1) Bacteremia Current Visit: Yes Status: Acute Assessment and plan: Patient's blood cultures are positive for enterococcus back on 04/11. Those are not finalized and from what I understand, they are sent to [place] to get finalized and this will take a few days to get back. In the meantime, she is maintained on vanco. f/u on echo and rule out endocarditis. She has a pacemaker. She is refusing a CT A/P despite her daughter saying that she has had abdominal pain complaints. Repeat blood cultures have been negative this admission. (2) Hypertension Current Visit: Yes Status: Chronic Assessment and plan: c/w home meds. BP is stable. Qualifiers: Hypertension type: unspecified Qualified Code(s): I10 - Essential (primary ) hypertension (3) Acute on chronic systolic (congestive) heart failure Current Visit: No Status: Acute Assessment and plan: Diuresing well. Will switch to oral lasix tomorrow. C/w IV lasix 40 mg daily c/ w BB/digoxin. monitor I&Os. c/w nebs. Wean down O2 as tolerated (4) Atrial fibrillation Current Visit: Yes Status: Acute Assessment and plan: c/w BB/digoxin. Patient is anticoagulated with eliquis Qualifiers: Atrial fibrillation type: chronic Qualified Code(s): I48.2 - Chronic atrial fibrillation (5) Coronary artery disease Current Visit: Yes Status: Acute Assessment and plan: c/w cardiac meds. She is on statin/plavix/BB Qualifiers: Coronary Disease-Associated Artery/Lesion type: [place] artery [place] vs. transplanted heart: unspecified whether [place] or transplanted heart Associated angina: without angina Qualified Code(s): I25.10 - Atherosclerotic heart disease of [place] coronary artery without angina pectoris (6) COPD (chronic obstructive pulmonary disease) Current Visit: No Status: Chronic Assessment and plan: c/w prednisone oral. c/w inhalers. Not in exacerbation. On chronic O2 Qualifiers: COPD type: unspecified COPD Qualified Code(s): J44.9 - Chronic obstructive pulmonary disease, unspecified (7) Type 2 diabetes mellitus Current Visit: No Status: Chronic Assessment and plan: c/w SSI. c/w accuchecks Qualifiers: Diabetes mellitus complication status: without complication Diabetes mellitus lobsterman insulin use: without fdc use Qualified Code(s): E11.9 - Type 2 diabetes mellitus without complications (8) DVT prophylaxis Current Visit: Yes Status: Acute Assessment and plan: joe (9) TREY (acute kidney injury) Current Visit: No Status: Acute Assessment and plan: Kidney function improved today after decreasing lasix to daily yesterday. Will check labs in the am. - Subjective Interval history: No acute event. Feeling ok. No complaints. Still waiting on micro sent to [place]. Echo was done but not read yet. Afebrile. - Constitutional Vitals: Temp Pulse Resp BP Pulse Ox 97.7 F 85 17 132/75 100 04/19/17 07:27 04/19/17 07:27 04/19/17 10:45 04/19/17 07:27 04/19/17 10:45 General appearance: Present: cooperative, A&O X 3, pleasant, no acute distress, answers questions appropriately Exam: GEN: NAD CVS: RRR. S1, S2, No m/r/g RESP: CTAB ABD: Soft, NT, ND, +BS EXT: Trace edema. 2+ DP NEURO: Nonfocal Internal Medicine: Result - Labs CBC & Chem 7: 04/19/17 03:04 04/19/17 03:04 Labs: Short CBC 04/18/17 04/19/17 Range/Units 14:30 03:04 WBC 16.6 H 14.3 H (4.3-11.1) K/mcL Hgb 11.6 11.4 L (11.5-15.4) g/dL Hct 36.7 35.1 L (35.3-44.9) % Plt Count 223 214 (140-400) K/mcL Neutrophils # 14.7 H 10.6 H (1.6-8.9) K/mcL BMP 04/18/17 04/19/17 14:30 03:04 Sodium 138 141 Potassium 4.2 3.7 Chloride 99 98 Carbon Dioxide 27 33 H BUN 22 H D 27 H Creatinine 1.37 H D 1.14 H Glucose 201 H 133 H Calcium 8.5 L 8.7 Consult Discharge Plan - Plan Referrals: Hal Monroy MD [Primary Care Provider] - 04/23/17 10:30 am
[2017-04-19] MEDS: *HR* Digoxin 0.125 MG TABLET PO SCH (13:09)
[2017-04-20] MEDS: Ipratropium/Albuterol Neb 3 ML IH SCH ×4 (03:23→22:32)
[2017-04-20 04:54] LABS: Basophils % 0.2 %; Eosinophils # 0.1 K/mcL (0.0-0.6); Eosinophils % 0.6 %; Hematocrit 35.2 % (35.3-44.9); Hemoglobin 11.2 g/dL (11.5-15.4); Immature Granulocytes % 1.8 % (0-4); Lymphocytes # 2.4 K/mcL (0.6-4.6); Mean Corpuscular HGB Conc 31.8 g/dL (31.6-35.5); Mean Corpuscular Hemoglobin 30.4 pg (28.0-33.3); Mean Corpuscular Volume 95.7 fL (83.0-100.0); Mean Platelet Volume 10.8 fL (9.4-12.4); Monocytes # 0.9 K/mcL (0.0-1.3); Monocytes % 6.4 %; Neutrophils # 9.7 K/mcL (1.6-8.9); Platelet Count 212 K/mcL (140-400); Red Blood Count 3.68 M/mcL (3.82-4.97); Red Cell Distribution Width 14.8 % (11.5-14.5)
[2017-04-20 05:08] LABS: BUN/Creatinine Ratio 31 (6-26); Blood Urea Nitrogen 30 mg/dL (7-20); Calcium 8.9 mg/dL (8.6-10.8); Carbon Dioxide 31 mEq/L (19-29); Chloride 100 mEq/L (98-109); Glucose 133 mg/dL (70-99); Osmolality,Calculated 302 (280-300); Sodium 142 mEq/L (136-145); eGFR For African Americans > 60 (> 60); eGFR For Non-African Americans 56 (> 60)
[2017-04-20] MEDS: Furosemide 40 MG/4 ML VIAL IVP SCH (07:46)
[2017-04-20] MEDS: Nicotine 14 MG PATCH.TD24 TD SCH (07:46)
[2017-04-20] MEDS: predniSONE 10 MG TABLET PO SCH (07:47)
[2017-04-20] MEDS: APIXABAN 5 MG TABLET PO SCH ×2 (07:47→21:16)
[2017-04-20] MEDS: Spironolactone 25 MG TABLET PO SCH ×2 (07:48→21:16)
[2017-04-20] MEDS: Insulin LISPRO 300 UNITS/3 ML VIAL SQ SCH ×4 (07:48→21:15)
[2017-04-20] MEDS: Metoprolol XL (24 HR) Succ 25 MG TAB.ER.24H PO SCH (07:48)
[2017-04-20] MEDS: Budesonide/Formoterol 160/4.5 MDI IH SCH ×2 (10:55→22:33)
--- NOTE | 2017-04-20 12:07 | Internal Med Progress Note ---
Date of Encounter: 04/20/17 Time of Encounter: 12:00 - Assessment and plan (1) Bacteremia Current Visit: Yes Status: Acute Assessment and plan: Patient's blood cultures are positive for enterococcus back on 04/11. Those are not finalized and from what I understand, they are sent to [place] to get finalized and this will take a few days to get back. In the meantime, she is maintained on vanco. no vegetations on echo. She has a pacemaker. She is refusing a CT A/P despite her daughter saying that she has had abdominal pain complaints. Repeat blood cultures have been negative this admission. (2) Hypertension Current Visit: Yes Status: Chronic Assessment and plan: c/w home meds. BP is stable. Qualifiers: Hypertension type: unspecified Qualified Code(s): I10 - Essential (primary ) hypertension (3) Acute on chronic systolic (congestive) heart failure Current Visit: No Status: Acute Assessment and plan: Diuresing well. Will switch to oral lasix today home dose. c/w BB/digoxin. monitor I&Os. c/w nebs. down to 2L O2 which is chronic. (4) Atrial fibrillation Current Visit: Yes Status: Acute Assessment and plan: c/w BB/digoxin. Patient is anticoagulated with eliquis Qualifiers: Atrial fibrillation type: chronic Qualified Code(s): I48.2 - Chronic atrial fibrillation (5) Coronary artery disease Current Visit: Yes Status: Acute Assessment and plan: c/w cardiac meds. She is on statin/plavix/BB Qualifiers: Coronary Disease-Associated Artery/Lesion type: [place] artery [place] vs. transplanted heart: unspecified whether [place] or transplanted heart Associated angina: without angina Qualified Code(s): I25.10 - Atherosclerotic heart disease of [place] coronary artery without angina pectoris (6) COPD (chronic obstructive pulmonary disease) Current Visit: No Status: Chronic Assessment and plan: c/w prednisone oral. c/w inhalers. Not in exacerbation. On chronic O2 Qualifiers: COPD type: unspecified COPD Qualified Code(s): J44.9 - Chronic obstructive pulmonary disease, unspecified (7) Type 2 diabetes mellitus Current Visit: No Status: Chronic Assessment and plan: c/w SSI. c/w accuchecks Qualifiers: Diabetes mellitus complication status: without complication Diabetes mellitus custodial insulin use: without automobile accessories salesperson use Qualified Code(s): E11.9 - Type 2 diabetes mellitus without complications (8) DVT prophylaxis Current Visit: Yes Status: Acute Assessment and plan: joe (9) TREY (acute kidney injury) Current Visit: No Status: Acute - Subjective Interval history: No acute event. Feeling ok. No complaints. Still waiting on micro sent to [place]. No vegetations on echo. Afebrile. She is on 2 L O2 now which she is on 2- 3 L at home - Constitutional Vitals: Temp Pulse Resp BP Pulse Ox 98.0 F 80 18 121/85 96 04/20/17 11:19 04/20/17 11:19 04/20/17 11:19 04/20/17 11:19 04/20/17 11:19 General appearance: Present: cooperative, A&O X 3, pleasant, no acute distress, answers questions appropriately Exam: GEN: NAD CVS: RRR. S1, S2, No m/r/g RESP: CTAB ABD: Soft, NT, ND, +BS EXT: Trace edema. 2+ DP NEURO: Nonfocal Internal Medicine: Result - Labs CBC & Chem 7: 04/20/17 04:30 04/20/17 04:30 Labs: Short CBC 04/20/17 Range/Units 04:30 WBC 13.3 H (4.3-11.1) K/mcL Hgb 11.2 L (11.5-15.4) g/dL Hct 35.2 L (35.3-44.9) % Plt Count 212 (140-400) K/mcL Neutrophils # 9.7 H (1.6-8.9) K/mcL BMP 04/20/17 04:30 Sodium 142 Potassium 4.0 Chloride 100 Carbon Dioxide 31 H BUN 30 H Creatinine 0.97 Glucose 133 H Calcium 8.9 - Impressions Impressions Echocardiogram 04/18/17 11:33 Impressions: LVEF 50%. Normal LV chamber size and function. Mild concentric left ventricular hypertrophy. Indeterminate diastolic function. Atypical septal motion consistent with post-operative status. Normal right ventricular structure and function. Severely dilated left atrium. Mild aortic stenosis. Mean gradient 12 mmHg. Mild mitral regurgitation. No evidence of pulmonary hypertension. A device lead was visualized in the right atrium and right ventricle. No obvious vegetations noted. Recommend repeat TTE or consider EL as clinically indicated. Left Ventricular Wall Motion: Rest Echo Findings All wall segments showed normal motion. Findings: Study Quality * Technically adequate exam. ECG Findings * Atrial fibrillation. Left Ventricle * LVEF 50%. * Normal LV chamber size and function. * Mild concentric left ventricular hypertrophy. * Indeterminate diastolic function. * Atypical septal motion consistent with post-operative status. Right Ventricle * Normal right ventricular structure and function. Left Atrium * Severely dilated left atrium. Right Atrium * Mildly dilated right atrium. Aortic Valve * Trileaflet aortic valve. * Moderately calcified aortic valve leaflets. * No aortic regurgitation. * Mild aortic stenosis. Mean gradient 12 mmHg. Mitral Valve * Mild mitral annular calcification. * Mildly thickened mitral valve leaflets. * Mild mitral regurgitation. * No mitral stenosis. Tricuspid Valve * Normal tricuspid valve structure and function. * Trace tricuspid regurgitation. * No evidence of pulmonary hypertension. Pulmonic Valve * Normal pulmonic valve structure and function. * No pulmonic regurgitation. Aorta * Normally sized aortic root. Pericardium * The pericardium appears normal. IVC * Normal IVC dimensions and inspiratory collapse. Device lead * A device lead was visualized in the right atrium and right ventricle. Pulmonary Artery * Normal visualized portions of the main pulmonary artery. Consult Discharge Plan - Plan Referrals: Hal Monroy MD [Primary Care Provider] - 04/23/17 10:30 am
[2017-04-20] MEDS: *HR* Digoxin 0.125 MG TABLET PO SCH (12:27)
[2017-04-20] MEDS: Furosemide 40 MG TABLET PO SCH (17:52)
[2017-04-21] MEDS: Ipratropium/Albuterol Neb 3 ML IH SCH ×4 (03:31→21:53)
[2017-04-21] MEDS: predniSONE 10 MG TABLET PO SCH (08:14)
[2017-04-21] MEDS: Insulin LISPRO 300 UNITS/3 ML VIAL SQ SCH ×4 (08:14→20:48)
[2017-04-21] MEDS: Metoprolol XL (24 HR) Succ 25 MG TAB.ER.24H PO SCH (08:14)
[2017-04-21] MEDS: Furosemide 40 MG TABLET PO SCH ×2 (08:14→17:14)
[2017-04-21] MEDS: APIXABAN 5 MG TABLET PO SCH ×2 (08:14→20:20)
[2017-04-21] MEDS: Nicotine 14 MG PATCH.TD24 TD SCH (08:14)
[2017-04-21] MEDS: Spironolactone 25 MG TABLET PO SCH ×2 (08:14→20:20)
[2017-04-21] MEDS: Budesonide/Formoterol 160/4.5 MDI IH SCH ×2 (10:39→21:53)
--- NOTE | 2017-04-21 12:30 | Internal Med Progress Note ---
Date of Encounter: 04/21/17 Time of Encounter: 09:00 - Assessment and plan (1) Bacteremia Current Visit: Yes Status: Acute Assessment and plan: Patient's blood cultures are positive for enterococcus back on 04/11. Those are not finalized and from what I understand, they are sent to [place] to get finalized and this will take a few days to get back. In the meantime, she is maintained on vanco. no vegetations on echo. She has a pacemaker. She is refusing a CT A/P despite her daughter saying that she has had abdominal pain complaints. The patient herself is not complaining of any pain. Repeat blood cultures have been negative this admission. (2) Hypertension Current Visit: Yes Status: Chronic Assessment and plan: c/w home meds. BP is stable. Qualifiers: Hypertension type: unspecified Qualified Code(s): I10 - Essential (primary ) hypertension (3) Acute on chronic systolic (congestive) heart failure Current Visit: No Status: Acute Assessment and plan: Diuresing well. c/w oral lasix home dose. c/w BB/digoxin. monitor I&Os. c/w nebs. On Room air now but is on 2L O2 at baseline. (4) Atrial fibrillation Current Visit: Yes Status: Acute Assessment and plan: c/w BB/digoxin. Patient is anticoagulated with eliquis Qualifiers: Atrial fibrillation type: chronic Qualified Code(s): I48.2 - Chronic atrial fibrillation (5) Coronary artery disease Current Visit: Yes Status: Acute Assessment and plan: c/w cardiac meds. She is on statin/plavix/BB Qualifiers: Coronary Disease-Associated Artery/Lesion type: [place] artery [place] vs. transplanted heart: unspecified whether [place] or transplanted heart Associated angina: without angina Qualified Code(s): I25.10 - Atherosclerotic heart disease of [place] coronary artery without angina pectoris (6) COPD (chronic obstructive pulmonary disease) Current Visit: No Status: Chronic Assessment and plan: c/w prednisone oral. c/w inhalers. Not in exacerbation. On chronic O2 Qualifiers: COPD type: unspecified COPD Qualified Code(s): J44.9 - Chronic obstructive pulmonary disease, unspecified (7) Type 2 diabetes mellitus Current Visit: No Status: Chronic Assessment and plan: c/w SSI. c/w accuchecks Qualifiers: Diabetes mellitus complication status: without complication Diabetes mellitus senior care insulin use: without senior care use Qualified Code(s): E11.9 - Type 2 diabetes mellitus without complications (8) TREY (acute kidney injury) Current Visit: No Status: Acute Assessment and plan: Kidney function improved today after decreasing lasix to daily yesterday. Will check labs in the am. (9) DVT prophylaxis Current Visit: Yes Status: Acute Assessment and plan: eliquis - Subjective Interval history: No acute event. Feeling ok. No complaints. Still waiting on micro sent to [place].Afebrile. Off O2 at this time but she is on 2-3 L at home - Constitutional Vitals: Temp Pulse Resp BP Pulse Ox 98.7 F 84 18 114/82 99 04/21/17 11:08 04/21/17 11:08 04/21/17 11:08 04/21/17 11:08 04/21/17 11:08 General appearance: Present: cooperative, A&O X 3, pleasant, no acute distress, answers questions appropriately Exam: GEN: NAD CVS: RRR. S1, S2, No m/r/g RESP: CTAB ABD: Soft, NT, ND, +BS EXT: Trace edema. 2+ DP NEURO: Nonfocal Internal Medicine: Result - Labs CBC & Chem 7: 04/20/17 04:30 04/20/17 04:30 Consult Discharge Plan - Plan Referrals: Hal Monroy MD [Primary Care Provider] - 04/23/17 10:30 am
[2017-04-22] MEDS: Ipratropium/Albuterol Neb 3 ML IH SCH ×4 (04:26→22:19)
[2017-04-22 04:54] LABS: Basophils % 0.2 %; Eosinophils # 0.1 K/mcL (0.0-0.6); Eosinophils % 0.7 %; Hematocrit 35.1 % (35.3-44.9); Hemoglobin 11.4 g/dL (11.5-15.4); Immature Granulocytes % 1.7 % (0-4); Lymphocytes # 2.3 K/mcL (0.6-4.6); Lymphocytes % 21.2 %; Mean Corpuscular HGB Conc 32.5 g/dL (31.6-35.5); Mean Corpuscular Volume 95.4 fL (83.0-100.0); Mean Platelet Volume 10.6 fL (9.4-12.4); Monocytes # 0.9 K/mcL (0.0-1.3); Monocytes % 8.3 %; Neutrophils # 7.4 K/mcL (1.6-8.9); Platelet Count 193 K/mcL (140-400); Red Blood Count 3.68 M/mcL (3.82-4.97); Red Cell Distribution Width 14.9 % (11.5-14.5); Segmented Neutrophils % 67.9 %
[2017-04-22 04:56] LABS: BUN/Creatinine Ratio 31 (6-26); Blood Urea Nitrogen 32 mg/dL (7-20); Calcium 9.4 mg/dL (8.6-10.8); Carbon Dioxide 33 mEq/L (19-29); Chloride 102 mEq/L (98-109); Glucose 121 mg/dL (70-99); Osmolality,Calculated 300 (280-300); Potassium 4.3 mEq/L (3.5-4.5); Sodium 141 mEq/L (136-145); eGFR For African Americans > 60 (> 60); eGFR For Non-African Americans 53 (> 60)
[2017-04-22] MEDS: Spironolactone 25 MG TABLET PO SCH ×2 (08:24→20:56)
[2017-04-22] MEDS: Nicotine 14 MG PATCH.TD24 TD SCH (08:24)
[2017-04-22] MEDS: Furosemide 40 MG TABLET PO SCH ×2 (08:24→17:19)
[2017-04-22] MEDS: APIXABAN 5 MG TABLET PO SCH ×2 (08:25→20:56)
[2017-04-22] MEDS: Metoprolol XL (24 HR) Succ 25 MG TAB.ER.24H PO SCH (08:25)
[2017-04-22] MEDS: Insulin LISPRO 300 UNITS/3 ML VIAL SQ SCH ×4 (08:25→20:55)
[2017-04-22] MEDS: predniSONE 10 MG TABLET PO SCH (08:25)
--- NOTE | 2017-04-22 11:04 | Internal Med Progress Note ---
Date of Encounter: 04/22/17 Time of Encounter: 08:00 - Assessment and plan (1) Bacteremia Current Visit: Yes Status: Acute Assessment and plan: Patient's blood cultures are positive for enterococcus back on 04/11. Those are not finalized and from what I understand, they are sent to [place] to get finalized and this will take a few days to get back. In the meantime, she is maintained on vanco. no vegetations on echo. She has a pacemaker. She is refusing a CT A/P despite her daughter saying that she has had abdominal pain complaints. The patient herself is not complaining of any pain. Repeat blood cultures have been negative this admission. (2) Hypertension Current Visit: Yes Status: Chronic Assessment and plan: c/w home meds. BP is stable. Qualifiers: Hypertension type: unspecified Qualified Code(s): I10 - Essential (primary ) hypertension (3) Acute on chronic systolic (congestive) heart failure Current Visit: No Status: Acute Assessment and plan: Diuresing well. c/w oral lasix home dose. c/w BB/digoxin. monitor I&Os. c/w nebs. On Room air now but is on 2L O2 at baseline. (4) Atrial fibrillation Current Visit: Yes Status: Acute Assessment and plan: c/w BB/digoxin. Patient is anticoagulated with eliquis Qualifiers: Atrial fibrillation type: chronic Qualified Code(s): I48.2 - Chronic atrial fibrillation (5) Coronary artery disease Current Visit: Yes Status: Acute Assessment and plan: c/w cardiac meds. She is on statin/plavix/BB Qualifiers: Coronary Disease-Associated Artery/Lesion type: [place] artery [place] vs. transplanted heart: unspecified whether [place] or transplanted heart Associated angina: without angina Qualified Code(s): I25.10 - Atherosclerotic heart disease of [place] coronary artery without angina pectoris (6) COPD (chronic obstructive pulmonary disease) Current Visit: No Status: Chronic Assessment and plan: c/w prednisone oral. c/w inhalers. Not in exacerbation. On chronic O2 Qualifiers: COPD type: unspecified COPD Qualified Code(s): J44.9 - Chronic obstructive pulmonary disease, unspecified (7) Type 2 diabetes mellitus Current Visit: No Status: Chronic Assessment and plan: c/w SSI. c/w accuchecks Qualifiers: Diabetes mellitus complication status: without complication Diabetes mellitus halfway insulin use: without halfway use Qualified Code(s): E11.9 - Type 2 diabetes mellitus without complications (8) TREY (acute kidney injury) Current Visit: No Status: Acute Assessment and plan: Kidney function improved today after decreasing lasix to daily yesterday. Will check labs in the am. (9) DVT prophylaxis Current Visit: Yes Status: Acute Assessment and plan: eliquis - Subjective Interval history: No acute event. Feeling ok. No complaints. Still waiting on micro sent to [place].Afebrile. she is on 2-3 L at home - Constitutional Vitals: Temp Pulse Resp BP Pulse Ox 98.3 F 93 17 109/71 98 04/22/17 08:25 04/22/17 08:25 04/22/17 08:25 04/22/17 08:25 04/22/17 08:25 General appearance: Present: cooperative, A&O X 3, pleasant, no acute distress, answers questions appropriately Exam: GEN: NAD CVS: RRR. S1, S2, No m/r/g RESP: CTAB ABD: Soft, NT, ND, +BS EXT: No edema. 2+ DP, No rashes NEURO: Nonfocal Internal Medicine: Result - Labs CBC & Chem 7: 04/22/17 04:25 04/22/17 04:25 Labs: Short CBC 04/22/17 Range/Units 04:25 WBC 10.9 (4.3-11.1) K/mcL Hgb 11.4 L (11.5-15.4) g/dL Hct 35.1 L (35.3-44.9) % Plt Count 193 (140-400) K/mcL Neutrophils # 7.4 (1.6-8.9) K/mcL BMP 04/22/17 04:25 Sodium 141 Potassium 4.3 Chloride 102 Carbon Dioxide 33 H BUN 32 H Creatinine 1.02 Glucose 121 H Calcium 9.4 Consult Discharge Plan - Plan Referrals: Hal Monroy MD [Primary Care Provider] - 04/23/17 10:30 am
[2017-04-22] MEDS: Budesonide/Formoterol 160/4.5 MDI IH SCH ×2 (11:33→22:19)
[2017-04-23] MEDS: Ipratropium/Albuterol Neb 3 ML IH SCH ×4 (03:46→21:02)
[2017-04-23 04:22] LABS: Basophils % 0.4 %; Eosinophils # 0.1 K/mcL (0.0-0.6); Eosinophils % 0.8 %; Hematocrit 35.2 % (35.3-44.9); Hemoglobin 11.3 g/dL (11.5-15.4); Immature Granulocytes % 1.9 % (0-4); Lymphocytes # 2.3 K/mcL (0.6-4.6); Lymphocytes % 20.7 %; Mean Corpuscular HGB Conc 32.1 g/dL (31.6-35.5); Mean Corpuscular Hemoglobin 30.6 pg (28.0-33.3); Mean Corpuscular Volume 95.4 fL (83.0-100.0); Mean Platelet Volume 10.6 fL (9.4-12.4); Monocytes # 0.9 K/mcL (0.0-1.3); Neutrophils # 7.6 K/mcL (1.6-8.9); Platelet Count 206 K/mcL (140-400); Red Blood Count 3.69 M/mcL (3.82-4.97); Red Cell Distribution Width 14.9 % (11.5-14.5); Segmented Neutrophils % 68.2 %
[2017-04-23 04:29] LABS: BUN/Creatinine Ratio 37 (6-26); Blood Urea Nitrogen 35 mg/dL (7-20); Calcium 8.8 mg/dL (8.6-10.8); Carbon Dioxide 33 mEq/L (19-29); Chloride 102 mEq/L (98-109); Glucose 136 mg/dL (70-99); Osmolality,Calculated 304 (280-300); Sodium 142 mEq/L (136-145); eGFR For African Americans > 60 (> 60); eGFR For Non-African Americans 58 (> 60)
[2017-04-23] MEDS: Insulin LISPRO 300 UNITS/3 ML VIAL SQ SCH ×4 (08:37→20:31)
[2017-04-23] MEDS: Furosemide 40 MG TABLET PO SCH ×2 (09:20→17:42)
[2017-04-23] MEDS: Spironolactone 25 MG TABLET PO SCH ×2 (09:20→20:30)
[2017-04-23] MEDS: predniSONE 10 MG TABLET PO SCH (09:21)
[2017-04-23] MEDS: Metoprolol XL (24 HR) Succ 25 MG TAB.ER.24H PO SCH (09:21)
[2017-04-23] MEDS: Nicotine 14 MG PATCH.TD24 TD SCH (09:21)
[2017-04-23] MEDS: APIXABAN 5 MG TABLET PO SCH ×2 (09:21→20:31)
[2017-04-23] MEDS: Budesonide/Formoterol 160/4.5 MDI IH SCH ×2 (09:33→21:02)
[2017-04-23] MEDS: *HR* Digoxin 0.125 MG TABLET PO SCH (12:26)
--- NOTE | 2017-04-23 13:41 | Internal Med Progress Note ---
Date of Encounter: 04/23/17 Time of Encounter: 07:20 - Assessment and plan (1) Bacteremia Current Visit: Yes Status: Acute Assessment and plan: Patient's blood cultures are positive for enterococcus back on 04/11. Those are not finalized and from what I understand, they are sent to [place] to get finalized and this will take a few days to get back. In the meantime, she is maintained on vanco. no vegetations on echo. She has a pacemaker. She is refusing a CT A/P despite her daughter saying that she has had abdominal pain complaints. The patient herself is not complaining of any pain. Repeat blood cultures have been negative this admission. (2) Hypertension Current Visit: Yes Status: Chronic Assessment and plan: c/w home meds. BP is stable. Qualifiers: Hypertension type: unspecified Qualified Code(s): I10 - Essential (primary ) hypertension (3) Acute on chronic systolic (congestive) heart failure Current Visit: No Status: Acute Assessment and plan: Diuresing well. c/w oral lasix home dose. c/w BB/digoxin. monitor I&Os. c/w nebs. On Room air now but is on 2L O2 at baseline. (4) Atrial fibrillation Current Visit: Yes Status: Acute Assessment and plan: c/w BB/digoxin. Patient is anticoagulated with eliquis Qualifiers: Atrial fibrillation type: chronic Qualified Code(s): I48.2 - Chronic atrial fibrillation (5) Coronary artery disease Current Visit: Yes Status: Acute Assessment and plan: c/w cardiac meds. She is on statin/plavix/BB Qualifiers: Coronary Disease-Associated Artery/Lesion type: [place] artery [place] vs. transplanted heart: unspecified whether [place] or transplanted heart Associated angina: without angina Qualified Code(s): I25.10 - Atherosclerotic heart disease of [place] coronary artery without angina pectoris (6) COPD (chronic obstructive pulmonary disease) Current Visit: No Status: Chronic Assessment and plan: c/w prednisone oral. c/w inhalers. Not in exacerbation. On chronic O2 Qualifiers: COPD type: unspecified COPD Qualified Code(s): J44.9 - Chronic obstructive pulmonary disease, unspecified (7) Type 2 diabetes mellitus Current Visit: No Status: Chronic Assessment and plan: c/w SSI. c/w accuchecks Qualifiers: Diabetes mellitus complication status: without complication Diabetes mellitus halfway insulin use: without halfway use Qualified Code(s): E11.9 - Type 2 diabetes mellitus without complications (8) TREY (acute kidney injury) Current Visit: No Status: Acute Assessment and plan: Kidney function improved after decreasing lasix to daily. (9) DVT prophylaxis Current Visit: Yes Status: Acute Assessment and plan: eliquis - Subjective Interval history: No acute event. Feeling ok. No complaints. Still waiting on micro sent to [place].Afebrile. she is on 2-3 L at home - Constitutional Vitals: Temp Pulse Resp BP Pulse Ox 98.1 F 84 19 122/68 95 04/23/17 11:52 04/23/17 11:52 04/23/17 11:52 04/23/17 11:52 04/23/17 11:52 General appearance: Present: cooperative, A&O X 3, pleasant, no acute distress, answers questions appropriately Exam: GEN: NAD CVS: RRR. S1, S2, No m/r/g RESP: CTAB ABD: Soft, NT, ND, +BS EXT: No edema. 2+ DP. No rashes NEURO: Nonfocal Internal Medicine: Result - Labs CBC & Chem 7: 04/23/17 04:00 04/23/17 04:00 Labs: Short CBC 04/23/17 Range/Units 04:00 WBC 11.2 H (4.3-11.1) K/mcL Hgb 11.3 L (11.5-15.4) g/dL Hct 35.2 L (35.3-44.9) % Plt Count 206 (140-400) K/mcL Neutrophils # 7.6 (1.6-8.9) K/mcL BMP 04/23/17 04:00 Sodium 142 Potassium 4.0 Chloride 102 Carbon Dioxide 33 H BUN 35 H Creatinine 0.94 Glucose 136 H Calcium 8.8 Consult Discharge Plan - Plan Referrals: Hal Monroy MD [Primary Care Provider] - 04/23/17 10:30 am
[2017-04-24] MEDS: Ipratropium/Albuterol Neb 3 ML IH SCH ×4 (03:32→22:12)
[2017-04-24] MEDS: Insulin LISPRO 300 UNITS/3 ML VIAL SQ SCH ×4 (07:22→20:41)
[2017-04-24] MEDS: Furosemide 40 MG TABLET PO SCH ×2 (07:45→16:45)
[2017-04-24] MEDS: Spironolactone 25 MG TABLET PO SCH ×2 (08:33→20:41)
[2017-04-24] MEDS: APIXABAN 5 MG TABLET PO SCH ×2 (08:33→20:41)
[2017-04-24] MEDS: predniSONE 10 MG TABLET PO SCH (08:34)
[2017-04-24] MEDS: Metoprolol XL (24 HR) Succ 25 MG TAB.ER.24H PO SCH (08:34)
[2017-04-24] MEDS: Nicotine 14 MG PATCH.TD24 TD SCH (08:35)
[2017-04-24] MEDS ORDERED: Vancomycin 1,000 MG in D5% in Water 250 ML IVPB SCH (09:00)
[2017-04-24] MEDS: Budesonide/Formoterol 160/4.5 MDI IH SCH ×2 (09:17→22:12)
[2017-04-24] MEDS: Vancomycin 750 MG in D5% in Water 250 ML IVPB SCH (10:36)
[2017-04-24] MEDS: *HR* Digoxin 0.125 MG TABLET PO SCH (12:33)
--- NOTE | 2017-04-24 13:48 | Internal Med Progress Note ---
Date of Encounter: 04/24/17 Time of Encounter: 10:00 - Assessment and plan (1) Bacteremia Current Visit: Yes Status: Acute Assessment and plan: Patient's blood cultures are positive for enterococcus back on 04/11. Those are not finalized sent to [place] to get finalized . I called micro lab and they are expecting results to be back tomorrow. Ideally she would probably need 2 weeks total of oral antibiotics however we will wait for the sensitivities of the enterococcus and discharged on antibiotics based on the sensitivities of the time. Continue with vancomycin for now. Patient is has been stable. no vegetations on echo. She has a pacemaker. . (2) Hypertension Current Visit: Yes Status: Chronic Assessment and plan: c/w home meds. BP is stable. Qualifiers: Hypertension type: unspecified Qualified Code(s): I10 - Essential (primary ) hypertension (3) Acute on chronic systolic (congestive) heart failure Current Visit: No Status: Acute Assessment and plan: Diuresing well. c/w oral lasix home dose. c/w BB/digoxin. monitor I&Os. c/w nebs. On Room air now but is on 2L O2 at baseline. (4) Atrial fibrillation Current Visit: Yes Status: Acute Assessment and plan: c/w BB/digoxin. Patient is anticoagulated with eliquis Qualifiers: Atrial fibrillation type: chronic Qualified Code(s): I48.2 - Chronic atrial fibrillation (5) Coronary artery disease Current Visit: Yes Status: Acute Assessment and plan: c/w cardiac meds. She is on statin/plavix/BB Qualifiers: Coronary Disease-Associated Artery/Lesion type: [place] artery [place] vs. transplanted heart: unspecified whether [place] or transplanted heart Associated angina: without angina Qualified Code(s): I25.10 - Atherosclerotic heart disease of [place] coronary artery without angina pectoris (6) COPD (chronic obstructive pulmonary disease) Current Visit: No Status: Chronic Assessment and plan: c/w prednisone oral. c/w inhalers. Not in exacerbation. On chronic O2 Qualifiers: COPD type: unspecified COPD Qualified Code(s): J44.9 - Chronic obstructive pulmonary disease, unspecified (7) Type 2 diabetes mellitus Current Visit: No Status: Chronic Assessment and plan: c/w SSI. c/w accuchecks Qualifiers: Diabetes mellitus complication status: without complication Diabetes mellitus manager terminal insulin use: without retirement use Qualified Code(s): E11.9 - Type 2 diabetes mellitus without complications (8) TREY (acute kidney injury) Current Visit: No Status: Acute Assessment and plan: Kidney function improved after decreasing lasix to daily. Labs in the morning. (9) DVT prophylaxis Current Visit: Yes Status: Acute Assessment and plan: eliquis - Subjective Interval history: No acute event. I spoke to micro-lab this morning. The micro results from [place] should be back tomorrow. Patient is irritated with her stay but she was reassured that we should have something by tomorrow. She threatened to leave for some time however she is staying. She has been afebrile. - Constitutional Vitals: Temp Pulse Resp BP Pulse Ox 98.1 F 87 16 109/65 97 04/24/17 10:41 04/24/17 10:41 04/24/17 10:41 04/24/17 10:41 04/24/17 10:41 General appearance: Present: cooperative, A&O X 3, pleasant, no acute distress, answers questions appropriately Exam: GEN: NAD CVS: RRR. S1, S2, No m/r/g RESP: CTAB ABD: Soft, NT, ND, +BS EXT: No edema. 2+ DP, No rashes NEURO: Nonfocal Internal Medicine: Result - Labs CBC & Chem 7: 04/23/17 04:00 04/23/17 04:00 Consult Discharge Plan - Plan Referrals: Hal Monroy MD [Primary Care Provider] - 05/10/17 9:15 am
[2017-04-25] MEDS: Ipratropium/Albuterol Neb 3 ML IH SCH ×4 (04:00→21:38)
[2017-04-25 04:17] LABS: Basophils % 0.2 %; Eosinophils # 0.1 K/mcL (0.0-0.6); Eosinophils % 0.6 %; Hematocrit 35.2 % (35.3-44.9); Hemoglobin 11.5 g/dL (11.5-15.4); Immature Granulocytes % 1.3 % (0-4); Lymphocytes # 2.5 K/mcL (0.6-4.6); Lymphocytes % 17.5 %; Mean Corpuscular HGB Conc 32.7 g/dL (31.6-35.5); Mean Corpuscular Hemoglobin 30.8 pg (28.0-33.3); Mean Corpuscular Volume 94.4 fL (83.0-100.0); Mean Platelet Volume 10.7 fL (9.4-12.4); Monocytes # 0.9 K/mcL (0.0-1.3); Monocytes % 6.1 %; Neutrophils # 10.6 K/mcL (1.6-8.9); Platelet Count 201 K/mcL (140-400); Red Blood Count 3.73 M/mcL (3.82-4.97); Red Cell Distribution Width 14.9 % (11.5-14.5); Segmented Neutrophils % 74.3 %
[2017-04-25 04:28] LABS: BUN/Creatinine Ratio 32 (6-26); Blood Urea Nitrogen 32 mg/dL (7-20); Calcium 9.2 mg/dL (8.6-10.8); Carbon Dioxide 29 mEq/L (19-29); Chloride 103 mEq/L (98-109); Glucose 124 mg/dL (70-99); Osmolality,Calculated 302 (280-300); Potassium 3.8 mEq/L (3.5-4.5); Sodium 142 mEq/L (136-145); eGFR For African Americans > 60 (> 60); eGFR For Non-African Americans 54 (> 60)
[2017-04-25] MEDS: Insulin LISPRO 300 UNITS/3 ML VIAL SQ SCH ×4 (08:16→21:01)
[2017-04-25] MEDS: Spironolactone 25 MG TABLET PO SCH ×2 (08:17→21:07)
[2017-04-25] MEDS: APIXABAN 5 MG TABLET PO SCH ×2 (08:17→21:07)
[2017-04-25] MEDS: Furosemide 40 MG TABLET PO SCH ×2 (08:17→17:28)
[2017-04-25] MEDS: Vancomycin 750 MG in D5% in Water 250 ML IVPB SCH (08:18)
[2017-04-25] MEDS: predniSONE 10 MG TABLET PO SCH (08:18)
[2017-04-25] MEDS: Metoprolol XL (24 HR) Succ 25 MG TAB.ER.24H PO SCH (08:18)
[2017-04-25] MEDS: Nicotine 14 MG PATCH.TD24 TD SCH (08:22)
[2017-04-25] MEDS: Budesonide/Formoterol 160/4.5 MDI IH SCH ×2 (10:34→21:38)
[2017-04-25] MEDS: *HR* Digoxin 0.125 MG TABLET PO SCH (12:27)
--- NOTE | 2017-04-25 16:28 | Internal Med Progress Note ---
Date of Encounter: 04/25/17 Time of Encounter: 13:00 - Assessment and plan (1) Bacteremia Current Visit: Yes Status: Acute Assessment and plan: 2/2 blood cultures positive for enterococcus faecalis on 04/11/2017. Unclear source. 04/18/17 TTE with no obvious vegetations. Is refusing further diagnostic testing. Daughter had reported patient complaining of abdominal pain discomfort, patient refusing a BD CT. Will not allow repeat TTE or EL. Has PPM. WBC 14 K on 04/25. Afebrile, no tachycardia or hypotension. Increase in WBC could be due to steroids as she is on daily steroids however will repeat blood cultures, urine culture, chest x-ray and lactic acid. Continue IV Vanco for now. Consult infectious disease on 04/27 when available. (2) Acute on chronic systolic (congestive) heart failure Current Visit: No Status: Acute Assessment and plan: With increasing shortness of breath, lower extremity edema and crackles on admission. CXR without pulmonary vascular congestion. Diuresed with IV Lasix. Now appears euvolemic. Resume home Lasix. Continue strict I's and O's, daily weights, low sodium diet. (3) TREY (acute kidney injury) Current Visit: No Status: Acute Assessment and plan: Kidney function improved after decreasing lasix. Intermittently monitor renal function. (4) Atrial fibrillation Current Visit: No Status: Chronic Assessment and plan: per hx. Has PPM. Rate controlled. Cont home BB, eliquis Qualifiers: Atrial fibrillation type: chronic Qualified Code(s): I48.2 - Chronic atrial fibrillation (5) CAD (coronary artery disease) Current Visit: No Status: Chronic Assessment and plan: per hx. asymptomatic. Denies chest pain. He home [place], statin, Lasix, BB. Qualifiers: Coronary Disease-Associated Artery/Lesion type: bypass graft [place] vs. transplanted heart: [place] heart Associated angina: without angina Qualified Code(s): I25.810 - Atherosclerosis of coronary artery bypass graft(s) without angina pectoris (6) Hypertension Current Visit: Yes Status: Chronic Assessment and plan: c/w home meds. BP is stable. Qualifiers: Hypertension type: unspecified Qualified Code(s): I10 - Essential (primary ) hypertension (7) DVT prophylaxis Current Visit: Yes Status: Acute Assessment and plan: Eliquis - Subjective Interval history: Seen and examined at bedside. Patient is known to me from previous admission. Patient is refusing any further diagnostic workup. States she wants to be discharged home. Daughter called at bedside per patient request and updated on current plan of care. Daughter would like patient to pursue further diagnostic testing however patient is adamant she is not doing so. Daughter therefore stated that patient will have to go to [facility]acute rehabilitation for IV ATB as daughter has upcoming surgery and will not be able to care for patient at home. youth care worker updated. Stress case with Dr. Navarro and will keep patient in the hospital until infectious disease returns on Sunday the for expert evaluation. - Constitutional Vitals: Temp Pulse Resp BP Pulse Ox 98.0 F 84 16 115/73 98 04/25/17 14:55 04/25/17 14:55 04/25/17 14:55 04/25/17 14:55 04/25/17 14:55 General appearance: Present: cooperative, A&O X 3, pleasant, no acute distress, answers questions appropriately - Head Head exam: Present: atraumatic, normocephalic - Eye Eye exam: Present: PERRL, conjuntiva pink, sclera anicteric Pupils: Present: PERRL - Neck Neck exam general surgery: Present: supple, trachea midline. Absent: lymphadenopathy - Respiratory Respiratory exam: Present: CTAB. Absent: accessory muscle use, rales, rhonchi, wheezes - Cardiovascular Cardiovascular exam: Present: RRR, +S1, +S2. Absent: diastolic murmur, gallop, rubs, systolic murmur - GI/Abdominal GI/Abdominal exam: Present: normal bowel sounds, soft, no peritoneal signs. Absent: distended, tenderness - Extremities Exam Extremities exam: Present: warm, radial pulses palpable and symmetrical. Absent : calf tenderness, cyanotic, pedal edema - Neurological Exam Neurological exam: Present: CN II-XII intact, oriented X3, no focal deficits. Absent: pronater drift, facial droop, speech deficit - Skin Skin exam: Present: dry, intact Internal Medicine: Result - Labs CBC & Chem 7: 04/25/17 04:05 04/25/17 04:05 Labs: Short CBC 04/25/17 Range/Units 04:05 WBC 14.3 H (4.3-11.1) K/mcL Hgb 11.5 (11.5-15.4) g/dL Hct 35.2 L (35.3-44.9) % Plt Count 201 (140-400) K/mcL Neutrophils # 10.6 H (1.6-8.9) K/mcL BMP 04/25/17 04:05 Sodium 142 Potassium 3.8 Chloride 103 Carbon Dioxide 29 BUN 32 H Creatinine 1.00 Glucose 124 H Calcium 9.2 Consult Discharge Plan - Plan Referrals: Hal Monroy MD [Primary Care Provider] - 05/10/17 9:15 am
[2017-04-25 19:58] LABS: Bilirubin,Urine Negative (Negative); Blood,Urine Negative (Negative); Clarity,Urine Clear (Clear); Color,Urine Yellow (Yellow); Glucose,Urine (UA) Normal (Normal); Ketones,Urine Negative (Negative); Leukocyte Esterase,Urine Negative (Negative); Nitrite,Urine Negative (Negative); Protein,Urine Negative (Neg-Trace); Specific Gravity,Urine 1.018 (1.010-1.025); Urobilinogen,Urine Normal (Normal)
[2017-04-26] MEDS: Ipratropium/Albuterol Neb 3 ML IH SCH ×4 (04:11→22:17)
[2017-04-26] MEDS ORDERED: Vancomycin 1,250 MG in D5% in Water 250 ML IVPB SCH (08:00)
[2017-04-26] MEDS: Insulin LISPRO 300 UNITS/3 ML VIAL SQ SCH ×4 (08:05→20:27)
[2017-04-26] MEDS: Spironolactone 25 MG TABLET PO SCH ×2 (09:02→20:27)
[2017-04-26] MEDS: Metoprolol XL (24 HR) Succ 25 MG TAB.ER.24H PO SCH (09:03)
[2017-04-26] MEDS: APIXABAN 5 MG TABLET PO SCH ×2 (09:03→20:28)
[2017-04-26] MEDS: Nicotine 14 MG PATCH.TD24 TD SCH (09:03)
[2017-04-26] MEDS: Furosemide 40 MG TABLET PO SCH ×2 (09:03→17:15)
[2017-04-26] MEDS: predniSONE 10 MG TABLET PO SCH (09:03)
[2017-04-26 09:24] LABS: Hematocrit 40.1 % (35.3-44.9); Mean Corpuscular HGB Conc 32.7 g/dL (31.6-35.5); Mean Corpuscular Hemoglobin 30.8 pg (28.0-33.3); Mean Corpuscular Volume 94.1 fL (83.0-100.0); Mean Platelet Volume 10.8 fL (9.4-12.4); Platelet Count 220 K/mcL (140-400); Red Blood Count 4.26 M/mcL (3.82-4.97); Red Cell Distribution Width 15.1 % (11.5-14.5)
[2017-04-26 09:31] LABS: Hemoglobin 13.1 g/dL (11.5-15.4)
[2017-04-26 09:34] LABS: BUN/Creatinine Ratio 30 (6-26); Blood Urea Nitrogen 32 mg/dL (7-20); Calcium 9.4 mg/dL (8.6-10.8); Carbon Dioxide 26 mEq/L (19-29); Chloride 102 mEq/L (98-109); Glucose 145 mg/dL (70-99); Osmolality,Calculated 299 (280-300); Sodium 140 mEq/L (136-145); eGFR For African Americans > 60 (> 60); eGFR For Non-African Americans 51 (> 60)
[2017-04-26] MEDS: Vancomycin 1,500 MG in D5% in Water 250 ML IVPB SCH (11:08)
[2017-04-26] MEDS: Budesonide/Formoterol 160/4.5 MDI IH SCH ×2 (11:35→22:17)
--- NOTE | 2017-04-26 15:52 | Internal Med Progress Note ---
Date of Encounter: 04/26/17 Time of Encounter: 08:30 - Assessment and plan (1) Bacteremia Current Visit: Yes Status: Acute Assessment and plan: With Enterococcus faecalis. Continue vancomycin per pharmacy dosing. (2) Acute on chronic systolic (congestive) heart failure Current Visit: Yes Status: Acute Assessment and plan: Currently euvolemic. Continue oral diuretic. (3) TREY (acute kidney injury) Current Visit: Yes Status: Resolved (4) Atrial fibrillation Current Visit: Yes Status: Chronic Assessment and plan: Rate controlled. On anticoagulation with Eliquis Qualifiers: Atrial fibrillation type: chronic Qualified Code(s): I48.2 - Chronic atrial fibrillation (5) CAD (coronary artery disease) Current Visit: Yes Status: Chronic Assessment and plan: Continue Lipitor, metoprolol Qualifiers: Coronary Disease-Associated Artery/Lesion type: bypass graft [place] vs. transplanted heart: [place] heart Associated angina: without angina Qualified Code(s): I25.810 - Atherosclerosis of coronary artery bypass graft(s) without angina pectoris (6) DVT prophylaxis Current Visit: Yes Status: Acute Assessment and plan: On eliquis (7) Hypertension Current Visit: Yes Status: Chronic Assessment and plan: Well-controlled Qualifiers: Hypertension type: essential hypertension Qualified Code(s): I10 - Essential (primary) hypertension - Subjective Interval history: Patient is doing well. Denies any new complaints at this time. Wants to go home. - Constitutional Vitals: Temp Pulse Resp BP Pulse Ox 98.4 F 99 20 136/72 94 04/26/17 15:02 04/26/17 15:02 04/26/17 15:02 04/26/17 15:02 04/26/17 15:02 General appearance: Present: cooperative, A&O X 3, pleasant, no acute distress, answers questions appropriately - Neck Neck exam general surgery: Present: supple, trachea midline. Absent: lymphadenopathy - Respiratory Respiratory exam: Present: CTAB. Absent: accessory muscle use, rales, rhonchi, wheezes - Cardiovascular Cardiovascular exam: Present: RRR, +S1, +S2. Absent: diastolic murmur, gallop, rubs, systolic murmur - GI/Abdominal GI/Abdominal exam: Present: normal bowel sounds, soft, no peritoneal signs. Absent: distended, tenderness - Extremities Exam Extremities exam: Present: warm, radial pulses palpable and symmetrical. Absent : calf tenderness, cyanotic, pedal edema - Neurological Exam Neurological exam: Present: alert, oriented X3, no focal deficits. Absent: facial droop, speech deficit Internal Medicine: Result - Labs CBC & Chem 7: 04/26/17 09:13 04/26/17 09:13 Labs: Short CBC 04/26/17 Range/Units 09:13 WBC 13.8 H (4.3-11.1) K/mcL Hgb 13.1 D (11.5-15.4) g/dL Hct 40.1 (35.3-44.9) % Plt Count 220 (140-400) K/mcL BMP 04/26/17 09:13 Sodium 140 Potassium 4.0 Chloride 102 Carbon Dioxide 26 BUN 32 H Creatinine 1.06 Glucose 145 H Calcium 9.4 Urine 04/25/17 Range/Units 19:40 Urine Color Yellow (Yellow) Urine Clarity Clear (Clear) Urine pH 6.0 (5.0-8.0) pH Units Ur Specific [place] 1.018 (1.010-1.025) Urine Protein Negative (Neg-Trace) mg/dL Urine Glucose (UA) Normal (Normal) mg/dL - Impressions Impressions Chest X-Ray 04/25/17 16:43 IMPRESSION: No acute process. D/ / Elisabeth Amos MD / Elisabeth Amos MD Interpreting Provider: Elisabeth Amos MD Consult Discharge Plan - Plan Referrals: Hal Monroy MD [Primary Care Provider] - 05/10/17 9:15 am Prescriptions: Vancomycin/0.9 % Sod Chloride [Vanco 750 mg/150 ml-0.9% NaCl] 750 mg IV DAILY # 30 jordan
[2017-04-26] MEDS: *HR* Digoxin 0.125 MG TABLET PO SCH (17:15)
[2017-04-27] MEDS: Ipratropium/Albuterol Neb 3 ML IH SCH ×4 (03:21→21:28)
[2017-04-27 06:12] LABS: Hematocrit 37.9 % (35.3-44.9); Hemoglobin 12.2 g/dL (11.5-15.4); Mean Corpuscular HGB Conc 32.2 g/dL (31.6-35.5); Mean Corpuscular Hemoglobin 30.3 pg (28.0-33.3); Mean Corpuscular Volume 94.3 fL (83.0-100.0); Mean Platelet Volume 10.8 fL (9.4-12.4); Platelet Count 196 K/mcL (140-400); Red Blood Count 4.02 M/mcL (3.82-4.97); Red Cell Distribution Width 14.9 % (11.5-14.5)
[2017-04-27 06:22] LABS: BUN/Creatinine Ratio 29 (6-26); Blood Urea Nitrogen 31 mg/dL (7-20); Carbon Dioxide 29 mEq/L (19-29); Chloride 102 mEq/L (98-109); Glucose 118 mg/dL (70-99); Osmolality,Calculated 300 (280-300); Potassium 3.5 mEq/L (3.5-4.5); Sodium 141 mEq/L (136-145); eGFR For African Americans > 60 (> 60); eGFR For Non-African Americans 51 (> 60)
[2017-04-27] MEDS: Insulin LISPRO 300 UNITS/3 ML VIAL SQ SCH ×4 (08:13→21:58)
[2017-04-27] MEDS: Nicotine 14 MG PATCH.TD24 TD SCH (08:16)
[2017-04-27] MEDS: predniSONE 10 MG TABLET PO SCH (08:16)
[2017-04-27] MEDS: APIXABAN 5 MG TABLET PO SCH ×2 (08:16→21:58)
[2017-04-27] MEDS: Metoprolol XL (24 HR) Succ 25 MG TAB.ER.24H PO SCH (08:16)
[2017-04-27] MEDS: Spironolactone 25 MG TABLET PO SCH ×2 (08:16→21:58)
[2017-04-27] MEDS: Furosemide 40 MG TABLET PO SCH ×2 (08:16→16:51)
[2017-04-27] MEDS ORDERED: Aminoglycoside Consult 1 EACH MC ONE (08:26)
[2017-04-27] MEDS: Budesonide/Formoterol 160/4.5 MDI IH SCH ×2 (10:27→21:28)
[2017-04-27] MEDS: *HR* Digoxin 0.125 MG TABLET PO SCH (11:30)
[2017-04-27] MEDS: Vancomycin 1,500 MG in D5% in Water 250 ML IVPB SCH (12:01)
--- NOTE | 2017-04-27 13:24 | Infectious Disease Consult ---
Date of Encounter: 04/27/17 Time of Encounter: 13:19 Assessment and Plan (1) Sepsis Status: Acute Assessment and plan: The patient had two SIRS criteria on admission. Likely secondary to bacteremia. Improved. WBC has improved. Tachycardia has resolved. Blood cultures drawn 04/15/17 are negative x 2 sets. Qualifiers: Sepsis type: sepsis due to unspecified organism Qualified Code(s): A41.9 - Sepsis, unspecified organism (2) Bacteremia Status: Acute Assessment and plan: Causative organism Enterococcus faecalis. Source unclear. The patient did complain of some abdominal pain on admission, which has resolved. She refused imaging and continues to refuse at this time. Additionally, the patient also has a pacemaker. She has no endocarditis stigmata and TTE was negative for vegetations, but she is at risk for seeding of her pacemaker. She refuses a EL. Complicated. Blood cultures drawn 04/11/17 were positive 2/2 sets for amp-sensitive Enterococcus. Repeat blood cultures drawn 04/14/17 are negative 2/2 sets. Discontinue Vancomycin. Start ampicillin 2 grams IV Q4H. Duration of treatment depends on the clinical picture, but would recommend 4 weeks of IV antibiotics followed by blood cultures 1 week after completing treatment. If patient has persistent bacteremia, she will require additional testing to identify the source of her infection. Would recommend switching to 12 grams IV daily via 24 hour continuous IV infusion when ready for discharge. Monitor renal function and dose-adjust antibiotics. Consult VAT for EPIV placement. Will need weekly CBC, BUN/Cr every Sunday for the duration of treatment. Will need weekly EPIV care per protocol. Follow up with ID 05/09/17 at 0840. (3) Steroid-dependent COPD Status: Chronic (4) Diabetes type 2, controlled Status: Chronic Qualifiers: Diabetes mellitus complication status: with circulatory complication Diabetes mellitus complication detail: with other circulatory complications Diabetes mellitus retirement insulin use: without intermodal dispatcher use Qualified Code( s): E11.59 - Type 2 diabetes mellitus with other circulatory complications (5) Leukocytosis Status: Chronic Assessment and plan: Chronic, likely secondary to chronic use of steroids. Worse on admission, but appears back at baseline. Continue to trend. Qualifiers: Leukocytosis type: unspecified Qualified Code(s): D72.829 - Elevated white blood cell count, unspecified (6) Atrial fibrillation Status: Acute Qualifiers: Atrial fibrillation type: chronic Qualified Code(s): I48.2 - Chronic atrial fibrillation (7) Coronary artery disease Status: Acute Qualifiers: Coronary Disease-Associated Artery/Lesion type: [place] artery [place] vs. transplanted heart: unspecified whether [place] or transplanted heart Associated angina: without angina Qualified Code(s): I25.10 - Atherosclerotic heart disease of [place] coronary artery without angina pectoris Infectious Disease HPI - Data of Consult Patient: new to practice Consult date: 04/27/17 Requesting Physician: Desiree Ordaz MD Primary Care Provider: Hal Monroy MD - Consult Narrative Reason for consult: Bacteremia History of present illness: Ms. Rodarte is a 72 year old female with a past medical history of CHF, hyperlipidemia, diabetes, hypertension, COPD, A. fib, CAD, and cardiomyopathy. The patient was admitted to the hospital April 15 for bacteremia. We are consulted April 27 for antibiotic recommendations regarding bacteremia. , The patient's a 72-year-old female with past medical history as stated above. The patient was admitted to the hospital back on April 11 through April 15 for evaluation for her defibrillator firing. She was noted to have leukocytosis that was though to be secondary to her chronic steroid use. Blood cultures were obtained. The patient apparently had no sepsis criteria and no indication of acute infection so she was discharged home on doxycycline. After discharge, her blood cultures came back positive for enterococcus and she was called to come back to the hospital for IV antibiotics. Since admission, the patient had repeat blood cultures drawn on April 15 that are negative 2 sets. The patient did have tachycardia and leukocytosis on admission, but she has been afebrile. She has no acute complaints. She had a chest x-ray that was negative. She has had a urinalysis that was negative. She had a transthoracic echocardiogram that showed an EF of 50%, but no alveolar vegetations. She did receive IV vancomycin, which she is currently on. Her leukocytosis has remained stable. Patient has refused any additional workup for her bacteremia including a transesophageal echocardiogram or a CT of her abdomen and pelvis. We've been asked to evaluate and make further recommendations. My exam today, the patient states that overall she feels better. She does report chronic shortness of breath, but states it was worse prior to admission, but she is now back to her baseline. She denies any fevers or chills or rigors. She denies any headache or neck pain. She denies any chest pain or cough. She denies any nausea or vomiting or diarrhea. She states she was having some abdominal pain that she relates to being constipated. She states she not had a bowel movement for about 4 days, but once she was able to have a bowel movement her abdominal pain resolved. She denies any blood in her stool. She denies any urinary complaints. She denies any pain at this time. She states that she is ready to go home. CC: Desiree Ordaz MD Past Med Surg Social Fam HX - Past Medical History Attestation: Yes The following information was validated with the patient. Source: patient, old records reviewed, nursing notes reviewed Medical history: arthritis, atrial fibrillation, CHF, COPD, coronary artery disease, diabetes, hypertension, myocardial infarction Psychiatric history: anxiety, depression - Past Surgical History Surgical History: angioplasty/stent, coronary bypass (CABG), hysterectomy, pacemaker/AICD - Social History Smoking Status: Current every day smoker Packs per day: 0.5 Smokeless Tobacco Status: No Alcohol use: none Drug use: none Occupational status: unemployed Current living situation: Home, With Family Activity Level: Independent ambulation Recent Out of Country Travel Within the Last 8 Weeks: No Exposure or Possible Exposure to Illness During Travel: No - Family History Father Adopted: [place]: Mikhail Allen Family Member Ethnicity: Non- Living Status: Age at : 38 Cause of : heart attack Hx Family Cardiac Disorders: Yes Hx Family Respiratory Disorders: No Hx Family Cancer: No Hx Family GI Disorders: No Hx Family Endocrine Disorder: No Hx Family Neuromuscular Disorders: No Hx Family Neurologic Disorders: No Hx Family HEENT Disorders: No Hx Family Autoimmune Disorders: No Mother Living Status: Hx Family Endocrine Disorder: Yes (DM) Infectious Disease-CN:Meds Apixaban [Eliquis] 5 mg PO BID 08/04/16 [History] Clopidogrel [Plavix] 75 mg PO DAILY 08/04/16 [History] Ferrous Sulfate 325 mg PO DAILY 08/04/16 [History] Fluticasone/Salmeterol [Advair 500-50 Diskus] 1 puff IH BID 08/04/16 [History] Pantoprazole Sodium [Protonix] 40 mg PO DAILY 08/04/16 [History] Pravastatin Sodium [Pravachol] 80 mg PO HS 08/04/16 [History] Oxygen 3 l NS CONT 12/06/16 [History] Metoprolol XL (24 HR) Succ [Toprol Xl] 25 mg PO DAILY #30 12/10/16 [Rx] metFORMIN [Glucophage] 500 mg PO DAILY #30 tablet 12/10/16 [Rx] Acetaminophen/Diphenhydramine [Acetaminophen Pm Caplet] 2 tab PO HS 02/04/17 [ History] Digoxin [Lanoxin] 0.125 mg PO MOTUWETHFR 02/04/17 [History] Sennosides [Senna] 8.6 mg PO PRN PRN 02/04/17 [History] Spironolactone [Aldactone] 12.5 mg PO BID 02/04/17 [History] Ipratropium/Albuterol Neb [Duoneb] 3 ml IH Q6HR 02/27/17 [History] Furosemide [Lasix] 40 mg PO BID 03/13/17 [History] predniSONE [PredniSONE] 10 mg PO DAILY 8 Days tablet 04/13/17 [Rx] Vancomycin/0.9 % Sod Chloride [Vanco 1.5 gm/250 ml-0.9% NaCl] 1.5 gm IV DAILY # 30 plast..bag 04/27/17 [Rx] 3 Allergy/AdvReac Type Severity Reaction Status Date / Time bupropion [From Wellbutrin] Allergy Swelling Verified 04/11/17 12:53 of Lip/Tongue/Throat Sulfa (Sulfonamide Allergy Hives Verified 04/11/17 12:53 Antibiotics) Varenicline [From Chantix] Allergy Swelling Verified 04/11/17 12:53 of Lip/Tongue/Throat Iodinated Contrast- Oral and AdvReac See Verified 04/11/17 12:53 IV Dye Comments [Iodinated Contrast Media - Oral and] tape Allergy Hives Uncoded 04/11/17 12:53 All systems: reviewed and no additional remarkable complaints except as stated Exam - Constitutional Vitals: Temp Pulse Resp BP Pulse Ox 97.9 F 81 20 118/73 93 04/27/17 11:17 04/27/17 11:17 04/27/17 11:17 04/27/17 11:17 04/27/17 11:17 General appearance: average body habitus, cooperative, no acute distress - Head Head exam: Present: atraumatic, normal inspection, normocephalic - Eye Eye exam: Present: EOMI, normal appearance, PERRL Pupils: Present: normal accommodation Additional comments: No subconjunctival hemorrhage noted. - ENT ENT exam: Present: mucous membranes moist - Neck Neck exam: Present: normal inspection - Respiratory Respiratory exam: Present: CTAB. Absent: rales, respiratory distress, rhonchi, wheezes - Cardiovascular Cardiovascular exam: Present: irregular rhythm. Absent: tachycardia - GI/Abdominal GI/Abdominal exam: Present: normal bowel sounds, soft. Absent: distended, tenderness - Extremities Exam Extremities exam: Present: normal inspection. Absent: joint swelling, pedal edema, tenderness - Back Exam Back exam: Present: normal inspection. Absent: paraspinal tenderness, vertebral tenderness - Neurological Exam Neurological exam: Present: alert, oriented X3, no focal deficits - Psychiatric Psychiatric exam: Present: normal affect, normal mood - Skin Skin exam: Present: dry, intact, normal color, warm Additional comments: No endocarditis stigmata noted. - Additional findings Additional findings: AICD noted to the left upper chest without redness, warmth, or tenderness. Infectious Disease CN: Results - Labs CBC & Chem 7: 04/27/17 05:49 04/27/17 05:49 Cultures: Cultures 04/25/17 17:16 Blood Culture - Preliminary Peripheral Venipuncture No growth. 04/15/17 12:29 Blood Culture - Final Peripheral Venipuncture No growth. 04/15/17 12:29 Blood Culture - Final Peripheral Venipuncture No growth. Serology: Serology 04/25/17 04/15/17 Range/Units 19:40 13:43 Urine Color Yellow Yellow (Yellow) Urine Clarity Clear Clear (Clear) Urine pH 6.0 6.0 (5.0-8.0) pH Units Ur Specific [place] 1.018 1.022 (1.010-1.025) Urine Protein Negative Negative (Neg-Trace) mg/dL Urine Glucose (UA) Normal Normal (Normal) mg/dL Urine Ketones Negative Negative (Negative) mg/dL Urine Blood Negative Negative (Negative) Urine Nitrite Negative Negative (Negative) Urine Bilirubin Negative Negative (Negative) Urine Urobilinogen Normal Normal (Normal) mg/dL Ur Leukocyte Esterase Negative Negative (Negative) Ur Culture Indicated? NO NO (NO) Consult Discharge Plan - Plan Referrals: Hal Monroy MD [Primary Care Provider] - 05/10/17 9:15 am Paty Collins CNP [Advanced Practice Nurse] - 05/09/17 8:40 am Prescriptions: Vancomycin/0.9 % Sod Chloride [Vanco 1.5 gm/250 ml-0.9% NaCl] 1.5 gm IV DAILY # 30 plast..bag
--- NOTE | 2017-04-27 15:32 | Internal Med Progress Note ---
Date of Encounter: 04/27/17 Time of Encounter: 08:50 - Assessment and plan (1) Bacteremia Current Visit: Yes Status: Acute Assessment and plan: With Enterococcus faecalis. Infectious disease has been consulted. Will follow recommendations. Plan for 4-6 weeks of IV antibiotics. track service worker working on getting patient placed a skilled rehabilitation. Awaiting prior authorization. (2) Acute on chronic systolic (congestive) heart failure Current Visit: Yes Status: Acute Assessment and plan: Continue oral Lasix. Acute heart failure appears to have subsided. (3) TREY (acute kidney injury) Current Visit: Yes Status: Resolved (4) Atrial fibrillation Current Visit: Yes Status: Chronic Assessment and plan: In sinus rhythm at this time. On anticoagulation with Eliquis. On Toprol-XL for rate control Qualifiers: Atrial fibrillation type: chronic Qualified Code(s): I48.2 - Chronic atrial fibrillation (5) CAD (coronary artery disease) Current Visit: Yes Status: Chronic Assessment and plan: Continue statin, beta patti and Plavix Qualifiers: Coronary Disease-Associated Artery/Lesion type: bypass graft [place] vs. transplanted heart: [place] heart Associated angina: without angina Qualified Code(s): I25.810 - Atherosclerosis of coronary artery bypass graft(s) without angina pectoris (6) DVT prophylaxis Current Visit: Yes Status: Acute (7) Hypertension Current Visit: Yes Status: Chronic Assessment and plan: Blood pressure is well controlled at this time Qualifiers: Hypertension type: essential hypertension Qualified Code(s): I10 - Essential (primary) hypertension - Subjective Interval history: Patient is doing well. No complaints at this time. - Constitutional Vitals: Temp Pulse Resp BP Pulse Ox 99.2 F 85 20 102/70 95 04/27/17 14:48 04/27/17 14:48 04/27/17 14:48 04/27/17 14:48 04/27/17 14:48 General appearance: Present: cooperative, A&O X 3, pleasant, no acute distress, answers questions appropriately - Respiratory Respiratory exam: Present: CTAB. Absent: accessory muscle use, rales, rhonchi, wheezes - Cardiovascular Cardiovascular exam: Present: RRR, +S1, +S2. Absent: diastolic murmur, gallop, rubs, systolic murmur - GI/Abdominal GI/Abdominal exam: Present: normal bowel sounds, soft, no peritoneal signs. Absent: distended, tenderness - Extremities Exam Extremities exam: Present: warm, radial pulses palpable and symmetrical. Absent : calf tenderness, cyanotic, pedal edema Internal Medicine: Result - Labs CBC & Chem 7: 04/27/17 05:49 04/27/17 05:49 Labs: Short CBC 04/27/17 Range/Units 05:49 WBC 12.5 H (4.3-11.1) K/mcL Hgb 12.2 (11.5-15.4) g/dL Hct 37.9 (35.3-44.9) % Plt Count 196 (140-400) K/mcL BMP 04/27/17 05:49 Sodium 141 Potassium 3.5 Chloride 102 Carbon Dioxide 29 BUN 31 H Creatinine 1.06 Glucose 118 H Calcium 9.0 Consult Discharge Plan - Plan Referrals: Hal Monroy MD [Primary Care Provider] - 05/10/17 9:15 am Paty Collins CNP [Advanced Practice Nurse] - 05/09/17 8:40 am Prescriptions: Vancomycin/0.9 % Sod Chloride [Vanco 1.5 gm/250 ml-0.9% NaCl] 1.5 gm IV DAILY # 30 plast..bag
[2017-04-27] MEDS ORDERED: Ampicillin 2 GM in 0.9 % Sodium Chloride Mini Bag 100 ML IVPB SCH (16:00)
[2017-04-27] MEDS ORDERED: Ampicillin 2 GM in 0.9 % Sodium Chloride 150 ML IVPB SCH (20:00)
[2017-04-27] MEDS: Ampicillin 2 GM in 0.9 % Sodium Chloride 150 ML IVPB SCH (23:40)
[2017-04-28] MEDS: Ipratropium/Albuterol Neb 3 ML IH SCH ×4 (03:51→20:46)
[2017-04-28] MEDS: Ampicillin 2 GM in 0.9 % Sodium Chloride 150 ML IVPB SCH ×3 (05:58→17:28)
[2017-04-28 06:32] LABS: Calcium 9.5 mg/dL (8.6-10.8); Hematocrit 37.7 % (35.3-44.9); Hemoglobin 12.2 g/dL (11.5-15.4); Mean Corpuscular HGB Conc 32.4 g/dL (31.6-35.5); Mean Corpuscular Hemoglobin 30.8 pg (28.0-33.3); Mean Corpuscular Volume 95.2 fL (83.0-100.0); Mean Platelet Volume 10.9 fL (9.4-12.4); Platelet Count 210 K/mcL (140-400); Potassium 3.9 mEq/L (3.5-4.5); Red Blood Count 3.96 M/mcL (3.82-4.97); Red Cell Distribution Width 14.9 % (11.5-14.5)
[2017-04-28] MEDS: Vancomycin 750 MG in D5% in Water 250 ML IVPB SCH (06:37)
[2017-04-28] MEDS: Insulin LISPRO 300 UNITS/3 ML VIAL SQ SCH ×4 (07:32→20:14)
[2017-04-28] MEDS: Furosemide 40 MG TABLET PO SCH ×2 (08:52→08:59)
[2017-04-28] MEDS: Spironolactone 25 MG TABLET PO SCH ×2 (08:59→20:13)
[2017-04-28] MEDS: predniSONE 10 MG TABLET PO SCH (08:59)
[2017-04-28] MEDS: Nicotine 14 MG PATCH.TD24 TD SCH (08:59)
[2017-04-28] MEDS: APIXABAN 5 MG TABLET PO SCH ×2 (08:59→20:14)
[2017-04-28] MEDS: Metoprolol XL (24 HR) Succ 25 MG TAB.ER.24H PO SCH (09:51)
[2017-04-28] MEDS: Budesonide/Formoterol 160/4.5 MDI IH SCH ×2 (10:56→20:46)
--- NOTE | 2017-04-28 14:11 | Internal Med Progress Note ---
Date of Encounter: 04/28/17 Time of Encounter: 09:10 - Assessment and plan (1) Bacteremia Current Visit: Yes Status: Acute Assessment and plan: with Enterococcus faecalis. Sensitive to ampicillin. Continue ampicillin. emergency worker notified about patient's change in decision regarding placement. She said it would still be Sunday before we are able to arrange anything for the patient. Continue ampicillin (2) Acute on chronic systolic (congestive) heart failure Current Visit: Yes Status: Acute Assessment and plan: Continue treatment for chronic congestive heart failure with oral Lasix (3) TREY (acute kidney injury) Current Visit: Yes Status: Resolved (4) Atrial fibrillation Current Visit: Yes Status: Chronic Assessment and plan: On anticoagulation with Eliquis Qualifiers: Atrial fibrillation type: chronic Qualified Code(s): I48.2 - Chronic atrial fibrillation (5) CAD (coronary artery disease) Current Visit: Yes Status: Chronic Assessment and plan: Continue Plavix, beta patti and Lipitor Qualifiers: Coronary Disease-Associated Artery/Lesion type: bypass graft [place] vs. transplanted heart: [place] heart Associated angina: without angina Qualified Code(s): I25.810 - Atherosclerosis of coronary artery bypass graft(s) without angina pectoris (6) DVT prophylaxis Current Visit: Yes Status: Acute (7) Hypertension Current Visit: Yes Status: Chronic Assessment and plan: Well-controlled Qualifiers: Hypertension type: essential hypertension Qualified Code(s): I10 - Essential (primary) hypertension - Subjective Interval history: No new complaints. Really wants to go home. She is presently stating that she would rather go home with home health back to her doctor and they have cleared up their differences. - Constitutional Vitals: Temp Pulse Resp BP Pulse Ox 97.8 F 89 16 127/87 95 04/28/17 10:48 04/28/17 10:48 04/28/17 10:58 04/28/17 10:48 04/28/17 10:58 General appearance: Present: cooperative, A&O X 3, pleasant, no acute distress, answers questions appropriately - Respiratory Respiratory exam: Present: CTAB. Absent: accessory muscle use, rales, rhonchi, wheezes - Cardiovascular Cardiovascular exam: Present: RRR, +S1, +S2. Absent: diastolic murmur, gallop, rubs, systolic murmur - GI/Abdominal GI/Abdominal exam: Present: normal bowel sounds, soft, no peritoneal signs. Absent: distended, tenderness - Extremities Exam Extremities exam: Present: warm, radial pulses palpable and symmetrical. Absent : calf tenderness, cyanotic, pedal edema - Neurological Exam Neurological exam: Present: alert, CN II-XII intact, oriented X3, no focal deficits. Absent: facial droop, speech deficit Internal Medicine: Result - Labs CBC & Chem 7: 04/28/17 05:29 04/28/17 05:29 Labs: Short CBC 04/28/17 Range/Units 05:29 WBC 11.3 H (4.3-11.1) K/mcL Hgb 12.2 (11.5-15.4) g/dL Hct 37.7 (35.3-44.9) % Plt Count 210 (140-400) K/mcL [facility] 04/28/17 05:29 Sodium 140 Potassium 3.9 Chloride 103 Carbon Dioxide 28 BUN 32 H Creatinine 1.15 H Glucose 111 H Calcium 9.5 Consult Discharge Plan - Plan Referrals: Hal Monroy MD [Primary Care Provider] - 05/10/17 9:15 am Paty Collins CNP [Advanced Practice Nurse] - 05/09/17 8:40 am Prescriptions: Vancomycin/0.9 % Sod Chloride [Vanco 1.5 gm/250 ml-0.9% NaCl] 1.5 gm IV DAILY # 30 plast..bag
[2017-04-29] MEDS: Ampicillin 2 GM in 0.9 % Sodium Chloride Mini Bag 100 ML IVPB SCH ×5 (00:21→22:06)
[2017-04-29] MEDS: Ampicillin 2 GM in 0.9 % Sodium Chloride 150 ML IVPB SCH (00:24)
[2017-04-29] MEDS: Ipratropium/Albuterol Neb 3 ML IH SCH ×4 (03:29→22:18)
[2017-04-29 04:19] LABS: Hematocrit 33.6 % (35.3-44.9); Hemoglobin 10.8 g/dL (11.5-15.4); Mean Corpuscular HGB Conc 32.1 g/dL (31.6-35.5); Mean Corpuscular Hemoglobin 30.6 pg (28.0-33.3); Mean Corpuscular Volume 95.2 fL (83.0-100.0); Mean Platelet Volume 10.8 fL (9.4-12.4); Platelet Count 183 K/mcL (140-400); Red Blood Count 3.53 M/mcL (3.82-4.97)
[2017-04-29 04:37] LABS: BUN/Creatinine Ratio 30 (6-26); Blood Urea Nitrogen 29 mg/dL (7-20); Calcium 9.3 mg/dL (8.6-10.8); Carbon Dioxide 30 mEq/L (19-29); Chloride 104 mEq/L (98-109); Glucose 129 mg/dL (70-99); Osmolality,Calculated 300 (280-300); Potassium 3.6 mEq/L (3.5-4.5); Sodium 141 mEq/L (136-145); eGFR For African Americans > 60 (> 60); eGFR For Non-African Americans 56 (> 60)
[2017-04-29] MEDS: Metoprolol XL (24 HR) Succ 25 MG TAB.ER.24H PO SCH (07:51)
[2017-04-29] MEDS: Insulin LISPRO 300 UNITS/3 ML VIAL SQ SCH ×4 (07:51→22:11)
[2017-04-29] MEDS: APIXABAN 5 MG TABLET PO SCH ×2 (07:51→22:06)
[2017-04-29] MEDS: Furosemide 40 MG TABLET PO SCH (07:51)
[2017-04-29] MEDS: predniSONE 10 MG TABLET PO SCH (07:51)
[2017-04-29] MEDS: Nicotine 14 MG PATCH.TD24 TD SCH (07:52)
[2017-04-29] MEDS: Spironolactone 25 MG TABLET PO SCH ×2 (07:52→22:06)
--- NOTE | 2017-04-29 10:23 | Internal Med Progress Note ---
Date of Encounter: 04/29/17 Time of Encounter: 08:20 - Assessment and plan (1) Bacteremia Current Visit: Yes Status: Acute Assessment and plan: With Enterococcus faecalis sensitive to ampicillin. Awaiting arrangement of IV antibiotics at home. recycle worker aware and working on this. (2) Acute on chronic systolic (congestive) heart failure Current Visit: Yes Status: Acute Assessment and plan: Acute heart failure has resolved. Continue oral Lasix (3) TREY (acute kidney injury) Current Visit: Yes Status: Resolved (4) Atrial fibrillation Current Visit: Yes Status: Chronic Assessment and plan: Rate controlled. On anticoagulation with Eliquis Qualifiers: Atrial fibrillation type: chronic Qualified Code(s): I48.2 - Chronic atrial fibrillation (5) CAD (coronary artery disease) Current Visit: Yes Status: Chronic Assessment and plan: No chest pain. Continue her Plavix, statin and beta patti Qualifiers: Coronary Disease-Associated Artery/Lesion type: bypass graft [place] vs. transplanted heart: [place] heart Associated angina: without angina Qualified Code(s): I25.810 - Atherosclerosis of coronary artery bypass graft(s) without angina pectoris (6) DVT prophylaxis Current Visit: Yes Status: Acute (7) Hypertension Current Visit: Yes Status: Chronic Assessment and plan: Fairly controlled with intermittent elevation. Continue current medications. Qualifiers: Hypertension type: essential hypertension Qualified Code(s): I10 - Essential (primary) hypertension - Subjective Interval history: No new complaints. Just wants to go home. Understands the need to arrange home IV antibiotics prior to her discharge. - Constitutional Vitals: Temp Pulse Resp BP Pulse Ox 98.2 F 102 16 156/88 93 04/29/17 07:51 04/29/17 07:51 04/29/17 07:51 04/29/17 07:51 04/29/17 07:51 General appearance: Present: cooperative, A&O X 3, pleasant, no acute distress, answers questions appropriately - Neck Neck exam general surgery: Present: supple, trachea midline. Absent: lymphadenopathy - Respiratory Respiratory exam: Present: CTAB. Absent: accessory muscle use, rales, rhonchi, wheezes - Cardiovascular Cardiovascular exam: Present: RRR, +S1, +S2. Absent: diastolic murmur, gallop, rubs, systolic murmur - GI/Abdominal GI/Abdominal exam: Present: normal bowel sounds, soft, no peritoneal signs. Absent: distended, tenderness Internal Medicine: Result - Labs CBC & Chem 7: 04/29/17 03:46 04/29/17 03:46 Labs: Short CBC 04/29/17 Range/Units 03:46 WBC 10.0 (4.3-11.1) K/mcL Hgb 10.8 L (11.5-15.4) g/dL Hct 33.6 L (35.3-44.9) % Plt Count 183 (140-400) K/mcL BMP 04/29/17 03:46 Sodium 141 Potassium 3.6 Chloride 104 Carbon Dioxide 30 H BUN 29 H Creatinine 0.97 Glucose 129 H Calcium 9.3 Consult Discharge Plan - Plan Referrals: Hal Monroy MD [Primary Care Provider] - 05/10/17 9:15 am Paty Collins CNP [Advanced Practice Nurse] - 05/09/17 8:40 am Prescriptions: Vancomycin/0.9 % Sod Chloride [Vanco 1.5 gm/250 ml-0.9% NaCl] 1.5 gm IV DAILY # 30 plast..bag
[2017-04-29] MEDS: Budesonide/Formoterol 160/4.5 MDI IH SCH ×2 (10:30→22:18)
[2017-04-30] MEDS: Ipratropium/Albuterol Neb 3 ML IH SCH ×3 (04:02→15:56)
[2017-04-30] MEDS: Ampicillin 2 GM in 0.9 % Sodium Chloride Mini Bag 100 ML IVPB SCH ×3 (05:58→17:42)
[2017-04-30 07:01] LABS: Hemoglobin 10.9 g/dL (11.5-15.4); Mean Corpuscular HGB Conc 32.1 g/dL (31.6-35.5); Mean Corpuscular Hemoglobin 30.7 pg (28.0-33.3); Mean Corpuscular Volume 95.8 fL (83.0-100.0); Mean Platelet Volume 10.9 fL (9.4-12.4); Platelet Count 191 K/mcL (140-400); Red Blood Count 3.55 M/mcL (3.82-4.97); Red Cell Distribution Width 14.6 % (11.5-14.5)
[2017-04-30 07:15] LABS: BUN/Creatinine Ratio 25 (6-26); Blood Urea Nitrogen 24 mg/dL (7-20); Calcium 9.1 mg/dL (8.6-10.8); Carbon Dioxide 31 mEq/L (19-29); Chloride 105 mEq/L (98-109); Glucose 99 mg/dL (70-99); Osmolality,Calculated 300 (280-300); Potassium 3.5 mEq/L (3.5-4.5); Sodium 143 mEq/L (136-145); eGFR For African Americans > 60 (> 60); eGFR For Non-African Americans 57 (> 60)
[2017-04-30] MEDS: Insulin LISPRO 300 UNITS/3 ML VIAL SQ SCH ×3 (07:43→17:15)
[2017-04-30] MEDS: Spironolactone 25 MG TABLET PO SCH (08:26)
[2017-04-30] MEDS: APIXABAN 5 MG TABLET PO SCH (08:27)
[2017-04-30] MEDS: Furosemide 40 MG TABLET PO SCH (08:28)
[2017-04-30] MEDS: predniSONE 10 MG TABLET PO SCH (08:28)
[2017-04-30] MEDS: Metoprolol XL (24 HR) Succ 25 MG TAB.ER.24H PO SCH (08:28)
[2017-04-30] MEDS: Nicotine 14 MG PATCH.TD24 TD SCH (08:28)
[2017-04-30] MEDS: Budesonide/Formoterol 160/4.5 MDI IH SCH (10:50)
[2017-04-30 11:39] VITALS: BP 111/69
[2017-04-30] MEDS: *HR* Digoxin 0.125 MG TABLET PO SCH (12:41)
--- NOTE | 2017-04-30 13:54 | Infectious Disease Progress No ---
Date of Encounter: 04/30/17 Time of Encounter: 13:52 - Assessment and Plan (1) Sepsis Current Visit: Yes Status: Acute The patient had two SIRS criteria on admission. Likely secondary to bacteremia. Improved. WBC has improved. Tachycardia has resolved. Blood cultures drawn 04/15/17 are negative x 2 sets. Additional blood cultures drawn 04/25/17 are negative x 2 sets as well. Qualifiers: Sepsis type: sepsis due to unspecified organism Qualified Code(s): A41.9 - Sepsis, unspecified organism (2) Bacteremia Current Visit: Yes Status: Acute Causative organism Enterococcus faecalis. Source unclear. The patient did complain of some abdominal pain on admission, which has resolved. She refused imaging and continues to refuse at this time. Additionally, the patient also has a pacemaker. She has no endocarditis stigmata and TTE was negative for vegetations, but she is at risk for seeding of her pacemaker. She refuses a EL. Complicated. Blood cultures drawn 04/11/17 were positive 2/2 sets for amp-sensitive Enterococcus. Repeat blood cultures drawn 04/14/17 are negative 2/2 sets. Additional blood cultures drawn 04/25/17 are negative x 2 sets as well. Continue ampicillin 2 grams IV Q4H. Duration of treatment depends on the clinical picture, but would recommend 4 weeks of IV antibiotics followed by blood cultures 1 week after completing treatment. If patient has persistent bacteremia, she will require additional testing to identify the source of her infection. Would recommend switching to 12 grams IV daily via 24 hour continuous IV infusion when ready for discharge. Monitor renal function and dose-adjust antibiotics. Will need weekly CBC, BUN/Cr every Sunday for the duration of treatment. Will need weekly EPIV care per protocol. Follow up with ID 05/09/17 at 0840. 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 (4) Diabetes type 2, controlled Current Visit: Yes Status: Chronic Qualifiers: Diabetes mellitus complication status: with circulatory complication Diabetes mellitus complication detail: with other circulatory complications Diabetes mellitus long-term insulin use: without [employer] use Qualified Code( s): E11.59 - Type 2 diabetes mellitus with other circulatory complications (5) Leukocytosis Current Visit: Yes Status: Chronic Resolved. Qualifiers: Leukocytosis type: unspecified Qualified Code(s): D72.829 - Elevated white blood cell count, unspecified (6) Atrial fibrillation Current Visit: Yes Status: Acute Qualifiers: Atrial fibrillation type: chronic Qualified Code(s): I48.2 - Chronic atrial fibrillation (7) Coronary artery disease Current Visit: Yes Status: Acute Qualifiers: Coronary Disease-Associated Artery/Lesion type: [place] artery [place] vs. transplanted heart: unspecified whether [place] or transplanted heart Associated angina: without angina Qualified Code(s): I25.10 - Atherosclerotic heart disease of [place] coronary artery without angina pectoris - Subjective Interval history: Patient seen and examined. We can notes reviewed. No acute events noted overnight. Patient denies any fevers or chills or rigors. She denies any headache or neck pain. She denies any congestion, earache somewhat or sore throat. She denies any chest pain, shortness of breath, or cough. She denies any nausea, vomiting, diarrhea, or constipation. She denies abdominal pain, urinary complaints, or appetite changes. She denies any oral thrush or new skin lesions. Infect Dis PN-Objective Data - Labs CBC & Chem 7: 04/30/17 06:25 04/30/17 06:25 Labs: Laboratory Results - last 24 hr 04/29/17 04/29/17 04/29/17 07:50 11:35 16:15 WBC RBC Hgb Hct MCV MCH MCHC RDW Plt Count MPV Sodium Potassium Chloride Carbon Dioxide BUN Creatinine Est GFR ( Amer) Est GFR (Non-Af Amer) BUN/Creatinine Ratio Glucose POC Glucose 96 H 205 H 150 H Calculated Osmolality Calcium 04/29/17 04/30/17 04/30/17 20:26 06:25 06:25 WBC 9.5 RBC 3.55 L Hgb 10.9 L Hct 34.0 L MCV 95.8 MCH 30.7 MCHC 32.1 RDW 14.6 H Plt Count 191 MPV 10.9 Sodium 143 Potassium 3.5 Chloride 105 Carbon Dioxide 31 H BUN 24 H Creatinine 0.96 Est GFR ( Amer) > 60 Est GFR (Non-Af Amer) 57 L BUN/Creatinine Ratio 25 Glucose 99 POC Glucose 103 H Calculated Osmolality 300 Calcium 9.1 Cultures: Cultures 04/25/17 17:16 Blood Culture - Preliminary Peripheral Venipuncture No growth. 04/25/17 17:16 Blood Culture - Preliminary Peripheral Venipuncture No growth. 04/15/17 12:29 Blood Culture - Final Peripheral Venipuncture No growth. 04/15/17 12:29 Blood Culture - Final Peripheral Venipuncture No growth. Serology 04/25/17 04/15/17 Range/Units 19:40 13:43 Urine Color Yellow Yellow (Yellow) Urine Clarity Clear Clear (Clear) Urine pH 6.0 6.0 (5.0-8.0) pH Units Ur Specific [place] 1.018 1.022 (1.010-1.025) Urine Protein Negative Negative (Neg-Trace) mg/dL Urine Glucose (UA) Normal Normal (Normal) mg/dL Urine Ketones Negative Negative (Negative) mg/dL Urine Blood Negative Negative (Negative) Urine Nitrite Negative Negative (Negative) Urine Bilirubin Negative Negative (Negative) Urine Urobilinogen Normal Normal (Normal) mg/dL Ur Leukocyte Esterase Negative Negative (Negative) Ur Culture Indicated? NO NO (NO) Exam - Constitutional Vitals: Temp Pulse Resp BP Pulse Ox 97.7 F 90 18 111/69 96 04/30/17 11:38 04/30/17 11:38 04/30/17 11:38 04/30/17 11:38 04/30/17 11:38 General appearance: cooperative, no acute distress, obese - Head Head exam: Present: atraumatic, normal inspection, normocephalic - Eye Eye exam: Present: EOMI, normal appearance, PERRL Pupils: Present: normal accommodation Additional comments: No subconjunctival hemorrhage noted. - ENT ENT exam: Present: mucous membranes moist - Neck Neck exam: Present: normal inspection - Respiratory Respiratory exam: Present: CTAB. Absent: rales, respiratory distress, rhonchi, wheezes - Cardiovascular Cardiovascular exam: Present: RRR, +S1, +S2 - GI/Abdominal GI/Abdominal exam: Present: normal bowel sounds, soft. Absent: distended, tenderness - Extremities Exam Extremities exam: Present: normal inspection. Absent: joint swelling, pedal edema, tenderness Additional comments: No endocarditis stigmata noted. - Neurological Exam Neurological exam: Present: alert, oriented X3, no focal deficits - Psychiatric Psychiatric exam: Present: normal affect, normal mood - Skin Skin exam: Present: dry, intact, normal color, warm Consult Discharge Plan - Plan Referrals: Hal Monroy MD [Primary Care Provider] - 05/10/17 9:15 am Paty Collins CNP [Advanced Practice Nurse] - 05/09/17 8:40 am Prescriptions: Ampicillin Sodium 12 gm IV DAILY 24 Days vial
--- NOTE | 2017-04-30 14:10 | Discharge Summary ---
Date of Encounter: 04/30/17 Time of Encounter: 09:15 - Discharge Diagnosis (1) Bacteremia Priority: Primary Status: Acute (2) Acute on chronic systolic (congestive) heart failure Priority: Secondary Status: Acute (3) TREY (acute kidney injury) Priority: Secondary Status: Resolved (4) Atrial fibrillation Priority: Secondary Status: Chronic Qualifiers: Atrial fibrillation type: chronic Qualified Code(s): I48.2 - Chronic atrial fibrillation (5) CAD (coronary artery disease) Priority: Secondary Status: Chronic Qualifiers: Coronary Disease-Associated Artery/Lesion type: bypass graft [place] vs. transplanted heart: [place] heart Associated angina: without angina Qualified Code(s): I25.810 - Atherosclerosis of coronary artery bypass graft(s) without angina pectoris (6) Hypertension Priority: Secondary Status: Chronic Qualifiers: Hypertension type: essential hypertension Qualified Code(s): I10 - Essential (primary) hypertension (7) DVT prophylaxis Priority: Secondary Status: Acute - Discharge Medications Prescriptions: Ampicillin Sodium 12 gm IV DAILY 24 Days vial Home Medications: Apixaban [Eliquis] 5 mg PO BID 08/04/16 [History] Clopidogrel [Plavix] 75 mg PO DAILY 08/04/16 [History] Ferrous Sulfate 325 mg PO DAILY 08/04/16 [History] Fluticasone/Salmeterol [Advair 500-50 Diskus] 1 puff IH BID 08/04/16 [History] Pantoprazole Sodium [Protonix] 40 mg PO DAILY 08/04/16 [History] Pravastatin Sodium [Pravachol] 80 mg PO HS 08/04/16 [History] Oxygen 3 l NS CONT 12/06/16 [History] Metoprolol XL (24 HR) Succ [Toprol Xl] 25 mg PO DAILY #30 12/10/16 [Rx] metFORMIN [Glucophage] 500 mg PO DAILY #30 tablet 12/10/16 [Rx] Acetaminophen/Diphenhydramine [Acetaminophen Pm Caplet] 2 tab PO HS 02/04/17 [ History] Digoxin [Lanoxin] 0.125 mg PO MOTUWETHFR 02/04/17 [History] Sennosides [Senna] 8.6 mg PO PRN PRN 02/04/17 [History] Spironolactone [Aldactone] 12.5 mg PO BID 02/04/17 [History] Ipratropium/Albuterol Neb [Duoneb] 3 ml IH Q6HR 02/27/17 [History] Furosemide [Lasix] 40 mg PO BID 03/13/17 [History] Ampicillin Sodium 12 gm IV DAILY 24 Days vial 04/30/17 [Rx] Allergies/Adverse Reactions: 3 Allergy/AdvReac Type Severity Reaction Status Date / Time bupropion [From Wellbutrin] Allergy Swelling Verified 04/11/17 12:53 of Lip/Tongue/Throat Sulfa (Sulfonamide Allergy Hives Verified 04/11/17 12:53 Antibiotics) Varenicline [From Chantix] Allergy Swelling Verified 04/11/17 12:53 of Lip/Tongue/Throat Iodinated Contrast- Oral and AdvReac See Verified 04/11/17 12:53 IV Dye Comments [Iodinated Contrast Media - Oral and] lidocaine AdvReac Hives Verified 04/27/17 16:18 tape Allergy Hives Uncoded 04/11/17 12:53 Date of admission: 04/15/17 12:37 Primary care physician: Hal Monroy MD Consults: 04/15/17 11:08 Consult to [employer] [CONS] Routine Reason for SW Consult: re-admission, possible home health, pt has [facility] home o2 04/15/17 11:41 Consult to Invasive Line Access Team [CONS] Routine Reason for Consult: limited iv access Line Type: EPIV 04/25/17 14:28 PT [Consult to Physical Therapy] [CONS] Routine Comment: Evaluate, develop and implement POC Reason for Consult: pt eval 04/25/17 14:31 OT [Consult to Occupational Therapy] [CONS] Routine Comment: Evaluate, develop and implement POC Reason for Consult: ot eval 04/25/17 16:29 Consult to Infectious Diseases [CONS] Routine Consulting Provider: [facility] [place] Reason for Consult: Bacteremia Call Completed: Yes 04/27/17 13:50 Consult to Invasive Line Access Team [CONS] Routine Reason for Consult: outpatient ampicillin. Limited vascular access. Line Type: Midline Discharging clinician: Desiree Ordaz Anticipated date of discharge: 04/30/17 - Patient Status Disposition: Home, Self-Care Condition: Good Functional capacity at discharge: uses cane/walker Overall status at discharge: patient is progressing back to baseline - Discharge Instructions Instructions: Atrial Fibrillation (DC), Acute Respiratory Distress Syndrome (DC ) Follow Up With: Hal Monroy MD [Primary Care Provider] - 05/10/17 9:15 am Paty Collins CNP [Advanced Practice Nurse] - 05/09/17 8:40 am - Diet and Activity Activity: as per physical therapy, increase activity as tolerated Diet: low fat, low cholesterol, low salt diet Hospital course: Ms. Rodarte is a 72 year old female patient who has a history of CHF, hypertension , diabetes, COPD and atrial fibrillation was hospitalized here after her blood cultures during a previous admission were positive for enterococcus after her discharge. She was called and an was started on intravenous antibiotics. No clear source of infection was able to be identified. She did develop congestive heart failure during her stay here and was treated with intravenous Lasix with improvement in her symptoms. She also developed kidney injury due to Lasix use but that has also now resolved. Infectious disease recommends that the patient receive intravenous ampicillin for 4 weeks due to unknown source and presence of pacemaker in this patient. Patient's cultures were finalized as being enterococcus faecalis sensitive to ampicillin. Repeat blood cultures have been negative here. At this time, patient is clinically stable for discharge. Home IV antibiotics have been arranged for her and she will be discharged later today. She will follow up with infectious disease for further management. - Time Spent with Patient Total time spent providing and/or coordinating discharge services: Greater than 30 minutes (32 MIN) - Constitutional Vitals: Temp Pulse Resp BP Pulse Ox 97.7 F 90 18 111/69 96 04/30/17 11:38 04/30/17 11:38 04/30/17 11:38 04/30/17 11:38 04/30/17 11:38 General appearance: Present: cooperative, A&O X 3, pleasant, no acute distress, answers questions appropriately - Respiratory Respiratory exam: Present: CTAB. Absent: accessory muscle use, rales, rhonchi, wheezes - Cardiovascular Cardiovascular exam: Present: RRR, +S1, +S2. Absent: diastolic murmur, gallop, rubs, systolic murmur
--- NOTE | 2017-04-30 14:13 | Physician Discharge Referral ---
Home Health/Hosp Referral Info Transfer to: Home Health Provider in Charge Post Discharge: PCP - Diagnosis (1) Bacteremia Priority: Primary Status: Acute (2) Acute on chronic systolic (congestive) heart failure Priority: Secondary Status: Acute (3) TREY (acute kidney injury) Priority: Secondary Status: Resolved (4) Atrial fibrillation Priority: Secondary Status: Chronic (5) CAD (coronary artery disease) Priority: Secondary Status: Chronic (6) Hypertension Priority: Secondary Status: Chronic (7) DVT prophylaxis Priority: Secondary Status: Acute - Respiratory Orders Oxygen / L per min (2) Smoking Cessation: Smoking cessation has been advised. For more information, call the [place] Tobacco Quit Line at 1-597-LKAH-NOW. - Diet/Nutrition Diet/Nutrition Orders: Cardiac - Activity Activity Orders: Walker - Services Needed Following services are medically necessary services: Nursing, Home Health Aide, Physical Therapy, Occupational Therapy, Home Infusion Home Care Orders: CBC, BMP Every sunday while patient is on Ampicillin - Transfer Medications Prescriptions: Ampicillin Sodium 12 gm IV DAILY 24 Days vial Home Medications: Apixaban [Eliquis] 5 mg PO BID 08/04/16 [History] Clopidogrel [Plavix] 75 mg PO DAILY 08/04/16 [History] Ferrous Sulfate 325 mg PO DAILY 08/04/16 [History] Fluticasone/Salmeterol [Advair 500-50 Diskus] 1 puff IH BID 08/04/16 [History] Pantoprazole Sodium [Protonix] 40 mg PO DAILY 08/04/16 [History] Pravastatin Sodium [Pravachol] 80 mg PO HS 08/04/16 [History] Oxygen 3 l NS CONT 12/06/16 [History] Metoprolol XL (24 HR) Succ [Toprol Xl] 25 mg PO DAILY #30 12/10/16 [Rx] metFORMIN [Glucophage] 500 mg PO DAILY #30 tablet 12/10/16 [Rx] Acetaminophen/Diphenhydramine [Acetaminophen Pm Caplet] 2 tab PO HS 02/04/17 [ History] Digoxin [Lanoxin] 0.125 mg PO MOTUWETHFR 02/04/17 [History] Sennosides [Senna] 8.6 mg PO PRN PRN 02/04/17 [History] Spironolactone [Aldactone] 12.5 mg PO BID 02/04/17 [History] Ipratropium/Albuterol Neb [Duoneb] 3 ml IH Q6HR 02/27/17 [History] Furosemide [Lasix] 40 mg PO BID 03/13/17 [History] Ampicillin Sodium 12 gm IV DAILY 24 Days vial 04/30/17 [Rx] Allergies/Adverse Reactions: 3 Allergy/AdvReac Type Severity Reaction Status Date / Time bupropion [From Wellbutrin] Allergy Swelling Verified 04/11/17 12:53 of Lip/Tongue/Throat Sulfa (Sulfonamide Allergy Hives Verified 04/11/17 12:53 Antibiotics) Varenicline [From Chantix] Allergy Swelling Verified 04/11/17 12:53 of Lip/Tongue/Throat Iodinated Contrast- Oral and AdvReac See Verified 04/11/17 12:53 IV Dye Comments [Iodinated Contrast Media - Oral and] lidocaine AdvReac Hives Verified 04/27/17 16:18 tape Allergy Hives Uncoded 04/11/17 12:53 Certification: Further, I certify that my clinical findings support that this patient is homebound (i.e. absences from home require considerable and taxing effort and are for medical reasons or [employer]az[employer] services or infrequently or short duration when for other reasons) because: Homebound Reason: Patient requires assistance of a person or device to safely leave home Attestation: My signature below is to certify that this patient is under my care and that I, or nurse practitioner, or a physician's insurance assistant working with me, has a face-to -face encounter with this patient.
== END 2017-04-30 19:00 | disposition home health service (06) | DRG 871 ==
LOC: 3BNU → SUATTDRO 12:37
PROVIDERS: ADMIT Nurse Practitioner; ATTEND Internal Medicine

== ENCOUNTER 2017-07-11 11:26 | Inpatient (IN) ==
[2017-07-11 12:28] LABS: Basophils % 0.2 %; Eosinophils # 0.1 K/mcL (0.0-0.6); Eosinophils % 1.1 %; Hematocrit 40.6 % (35.3-44.9); Hemoglobin 12.7 g/dL (11.5-15.4); Immature Granulocytes % 0.7 % (0-4); Lymphocytes # 1.5 K/mcL (0.6-4.6); Mean Corpuscular HGB Conc 31.3 g/dL (31.6-35.5); Mean Corpuscular Hemoglobin 27.4 pg (28.0-33.3); Mean Corpuscular Volume 87.5 fL (83.0-100.0); Mean Platelet Volume 11.4 fL (9.4-12.4); Monocytes # 0.9 K/mcL (0.0-1.3); Monocytes % 7.6 %; Neutrophils # 9.6 K/mcL (1.6-8.9); Platelet Count 236 K/mcL (140-400); Red Blood Count 4.64 M/mcL (3.82-4.97); Red Cell Distribution Width 14.3 % (11.5-14.5); Segmented Neutrophils % 78.4 %
[2017-07-11 12:39] LABS: BUN/Creatinine Ratio 16 (6-26); Blood Urea Nitrogen 16 mg/dL (8-23); Calcium 9.2 mg/dL (8.6-10.3); Carbon Dioxide 34 mEq/L (23-29); Chloride 100 mEq/L (98-107); Glucose 139 mg/dL (70-105); Osmolality,Calculated 295 (280-300); Potassium 3.5 mEq/L (3.5-5.1); Sodium 141 mEq/L (136-145); eGFR For Non-African Americans 52 (> 60)
[2017-07-11 12:44] LABS: Digoxin 1.5 ng/mL (0.8-2.0)
--- NOTE | 2017-07-11 13:50 | Emergency Department Note ---
Disposition Clinical Impression: Elevated troponin, Acute electrocardiogram changes Chest pain Qualifiers: Chest pain type: unspecified Qualified Code(s): R07.9 - Chest pain, unspecified Disposition: Admitted As Inpatient Condition: Good Instructions: Chest Pain (ED) Referrals: Hal Monroy MD [Primary Care Provider] - Forms: ED Satisfaction Letter Chest Pain HPI - General Chief Complaint: ED Chest Pain Stated Complaint: CHEST PAIN Time Seen by Provider: 07/11/17 11:33 Source: family, EMS Limitations: no limitations Vital Signs Reviewed: Yes Nursing Notes Reviewed: Yes - History of Present Illness HPI Narrative: Patient presents today for evaluation of chest pain. Patient developed chest pain while at her PCPs office during her regular checkup. EKG was performed the patient had ST depression of the lateral leads including V5 V6 aVL and lead 1. Changes are new from previous EKG. The patient does take L Corby and digoxin. Patient takes a request for A. fib. She states her symptoms started approximately 2 weeks ago with intermittent chest pain with associated weakness and fatigue. Patient states she just has not quite felt herself. The chest pain episode today started proximally and hour prior to arrival. Patient did receive nitroglycerin as well as aspirin. Severity scale (1-10): 3 - Related Data Home Medications Medication Instructions Recorded Confirmed Apixaban [Eliquis] 5 mg PO BID 08/04/16 04/15/17 Clopidogrel [Plavix] 75 mg PO DAILY 08/04/16 04/15/17 Ferrous Sulfate 325 mg PO DAILY 08/04/16 04/15/17 Fluticasone/Salmeterol [Advair 1 puff IH BID 08/04/16 04/15/17 500-50 Diskus] Pantoprazole Sodium [Protonix] 40 mg PO DAILY 08/04/16 04/15/17 Pravastatin Sodium [Pravachol] 80 mg PO HS 08/04/16 04/15/17 Oxygen 3 l NS CONT 12/06/16 04/15/17 Acetaminophen/Diphenhydramine 2 tab PO HS 02/04/17 04/15/17 [Acetaminophen Pm Caplet] Digoxin [Lanoxin] 0.125 mg PO MOTUWETHFR 02/04/17 04/15/17 Sennosides [Senna] 8.6 mg PO PRN PRN 02/04/17 04/15/17 Spironolactone [Aldactone] 12.5 mg PO BID 02/04/17 04/15/17 Ipratropium/Albuterol Neb [Duoneb] 3 ml IH Q6HR 02/27/17 04/15/17 Furosemide [Lasix] 40 mg PO BID 03/13/17 04/15/17 Previous Rx's Medication Instructions Recorded Metoprolol XL (24 HR) Succ [Toprol 25 mg PO DAILY #30 12/10/16 Xl] metFORMIN [Glucophage] 500 mg PO DAILY #30 tablet 12/10/16 Ampicillin Sodium 12 gm IV DAILY 24 Days vial 04/30/17 Allergies Allergy/AdvReac Type Severity Reaction Status Date / Time bupropion [From Wellbutrin] Allergy Swelling Verified 04/11/17 12:53 of Lip/Tongue/Throat Sulfa (Sulfonamide Allergy Hives Verified 04/11/17 12:53 Antibiotics) Varenicline [From Chantix] Allergy Swelling Verified 04/11/17 12:53 of Lip/Tongue/Throat Iodinated Contrast- Oral and AdvReac See Verified 04/11/17 12:53 IV Dye Comments [Iodinated Contrast Media - Oral and] lidocaine AdvReac Hives Verified 04/27/17 16:18 tape Allergy Hives Uncoded 04/11/17 12:53 Review of Systems: CONSTITUTIONAL: Weakness and fatigue HEENT: Eyes: No visual changes. Ears, Nose, Throat: No hearing loss, difficulty talking or unable to swallow. SKIN: No rash or itching. CARDIOVASCULAR: Chest pain. RESPIRATORY: No shortness of breath, cough or sputum. GASTROINTESTINAL: No anorexia, nausea, vomiting or diarrhea. No abdominal pain or blood. GENITOURINARY: No burning on urination or hematuria. NEUROLOGICAL: No headache, dizziness, syncope, paralysis, ataxia, numbness or tingling in the extremities. No change in bowel or bladder control. MUSCULOSKELETAL: No muscle pain, back pain, joint pain or stiffness. Chest Pain PMH - Past Medical History Medical history: Reports: arthritis, atrial fibrillation, CHF, COPD, coronary artery disease, diabetes, hypertension, myocardial infarction Surgical history: Reports: angioplasty/stent, coronary bypass (CABG), hysterectomy, pacemaker/AICD Psychiatric history: Reports: anxiety, depression - Social History Smoking Status: Current every day smoker Alcohol use: Reports: none Drug use: Reports: none Physical Exam General: Well appearing, nontoxic, no acute distress Head: Normocephalic Atraumatic Eyes: PERRL, EOMI ENT: Airway patent, no stridor Neck: supple, no meningismus Chest: Lungs clear to auscultation bilateral Cardiac: Regular rate and rhythm, no murmurs, rubs or gallops Abdomen: soft, nontender, nondistended; no guarding, rebound, or tenderness to percussion Musculoskeletal: Calves symmetric, nontender, no palpable cord Skin: No rash, normal skin tone Neuro: Alert and Oriented to person, place, and time; No focal deficit, CN 2-12 symmetric and intact - General Limitations: no limitations General appearance: alert, in no apparent distress Course - Reevaluation(s) Reevaluation #1: Patient remains chest pain-free. - Consultations Consultation #1: Discussed with Dr. Rubin. Patient can be brought into the hospitalist service and they will consult. Trend troponins. Consultation #2: Discussed with Dr. Skinner. Patient accepted for admission. He does request heparin despite Eliquis. Will call to clarify with Cardiology. Cardiology states that if they are on Eliquis then we do not need to start a heparin drip at this time. Vital Signs Temperature 97.6 F 07/11/17 11:27 Pulse Rate 70 07/11/17 11:27 Respiratory Rate 16 07/11/17 11:27 Blood Pressure 129/64 07/11/17 11:27 O2 Sat by Pulse Oximetry 94 07/11/17 11:27 Temperature 97.6 F 07/11/17 11:27 Pulse Rate 77 07/11/17 14:17 Respiratory Rate 16 07/11/17 14:17 Blood Pressure 120/52 07/11/17 14:17 O2 Sat by Pulse Oximetry 98 07/11/17 14:17 Oxygen Delivery Oxygen Delivery Nasal Cannula Chest Pain - Medical Records Medical records reviewed: Yes I reviewed the patient's medical records. - Lab Data Lab results reviewed: Yes I reviewed the patient's lab results. Result diagrams: 07/11/17 11:30 07/11/17 11:30 Lab Results 07/11/17 07/11/17 07/11/17 Range/Units 11:30 11:30 11:30 WBC 12.3 H (4.3-11.1) K/mcL RBC 4.64 (3.82-4.97) M/mcL Hgb 12.7 (11.5-15.4) g/dL Hct 40.6 (35.3-44.9) % MCV 87.5 (83.0-100.0) fL MCH 27.4 L (28.0-33.3) pg MCHC 31.3 L (31.6-35.5) g/dL RDW 14.3 (11.5-14.5) % Plt Count 236 (140-400) K/mcL MPV 11.4 (9.4-12.4) fL Immature Gran % 0.7 (0-4) % Seg Neutrophils % 78.4 % Lymphocytes % 12.0 % Monocytes % 7.6 % Eosinophils % 1.1 % Basophils % 0.2 % Neutrophils # 9.6 H (1.6-8.9) K/mcL Lymphocytes # 1.5 (0.6-4.6) K/mcL Monocytes # 0.9 (0.0-1.3) K/mcL Eosinophils # 0.1 (0.0-0.6) K/mcL Basophils # 0.0 (0.0-0.2) K/mcL Sodium 141 (136-145) mEq/L Potassium 3.5 (3.5-5.1) mEq/L Chloride 100 (98-107) mEq/L Carbon Dioxide 34 H (23-29) mEq/L BUN 16 (8-23) mg/dL Creatinine 1.03 (0.60-1.20) mg/dL Est GFR ( Amer) > 60 (> 60) Est GFR (Non-Af Amer) 52 L (> 60) BUN/Creatinine Ratio 16 (6-26) Glucose 139 H (70-105) mg/dL Calculated Osmolality 295 (280-300) Calcium 9.2 (8.6-10.3) mg/dL Troponin I (< 0.04) ng/mL B-Natriuretic Peptide 217 H (Less than 100) pg/mL Digoxin 1.5 (0.8-2.0) ng/mL 07/11/17 Range/Units 11:30 WBC (4.3-11.1) K/mcL RBC (3.82-4.97) M/mcL Hgb (11.5-15.4) g/dL Hct (35.3-44.9) % MCV (83.0-100.0) fL MCH (28.0-33.3) pg MCHC (31.6-35.5) g/dL RDW (11.5-14.5) % Plt Count (140-400) K/mcL MPV (9.4-12.4) fL Immature Gran % (0-4) % Seg Neutrophils % % Lymphocytes % % Monocytes % % Eosinophils % % Basophils % % Neutrophils # (1.6-8.9) K/mcL Lymphocytes # (0.6-4.6) K/mcL Monocytes # (0.0-1.3) K/mcL Eosinophils # (0.0-0.6) K/mcL Basophils # (0.0-0.2) K/mcL Sodium (136-145) mEq/L Potassium (3.5-5.1) mEq/L Chloride (98-107) mEq/L Carbon Dioxide (23-29) mEq/L BUN (8-23) mg/dL Creatinine (0.60-1.20) mg/dL Est GFR ( Amer) (> 60) Est GFR (Non-Af Amer) (> 60) BUN/Creatinine Ratio (6-26) Glucose (70-105) mg/dL Calculated Osmolality (280-300) Calcium (8.6-10.3) mg/dL Troponin I 0.07 H* (< 0.04) ng/mL B-Natriuretic Peptide (Less than 100) pg/mL Digoxin (0.8-2.0) ng/mL - Radiology Data Radiology results reviewed: Yes I reviewed the patient's radiology results. - EKG Data EKG attestation: Yes I reviewed and interpreted this EKG. EKG results narrative: EKG shows atrial fibrillation w rate of 72 depressions of V5 V6 aVL and lead 1. Acute changes from previous EKG. Attestation Statement - Attestation Attestation: I examined this patient and my medical decision-making was reviewed with the Resident Physician. I agree with the documented findings, disposition and treatment plan as described except to the extent set forth below. Patient presents to the emergency department chest pain. Patient was at her PCPs office today for a visit and experienced some chest pain. He did an EKG that showed some anterolateral ST depressions. Patient feels better here. She is in no distress on examination with clear lungs and heart regular rate and rhythm. Plan. Initial EKG was paced. Were able to catch it and paced EKG that does show these depressions that appear new from old EKGs. Her troponin is positive, but is usually elevated. Patient be admitted for further cardiac workup.
[2017-07-11] MEDS ORDERED: Aspirin 81 MG TAB.CHEW PO STA (14:01)
[2017-07-11] MEDS ORDERED: Naloxone 0.4 MG/ML INJ IVP PRN (15:02)
[2017-07-11] MEDS ORDERED: Nitroglycerin 0.4 MG TAB.SUBL SL PRN (15:14)
[2017-07-11] MEDS ORDERED: Dextrose Gel 15 GM/37.5 ML TUBE PO PRN ×2 (15:18)
[2017-07-11] MEDS ORDERED: D5% in Water 1,000 ML IVC PRN (15:18)
[2017-07-11] MEDS ORDERED: *HR* Dextrose 50 % in Water (Syg) 50 ML SYRINGE IVP PRN (15:18)
[2017-07-11] MEDS ORDERED: Acetaminophen 325 MG TABLET PO PRN (15:20)
[2017-07-11] MEDS ORDERED: Sennosides 8.6 MG TABLET PO PRN (15:36)
[2017-07-11] MEDS ORDERED: hydrOXYzine pamoate 25 MG CAPSULE PO PRN (15:36)
--- NOTE | 2017-07-11 15:50 | Internal Med History&Physical ---
<Kiran Sen - Last Filed: 07/11/17 16:36> Date of Encounter: 07/11/17 Time of Encounter: 14:30 Assessment and Plan (1) Chest pain Current visit: Yes Status: Acute Acute chest pain for the past 2-3 weeks w/worsening sx today. Pt. reports centralized pressure in her chest accompanied by shortness of breath and diaphoresis. Patient also reports numbness 2 in her left arm today. Associated weakness and fatigue. Patient given nitroglycerin and aspirin. Patient reports no chest pain on exam. History of chronically elevated troponin. Patient currently on Eliquis for chronic atrial fibrillation. Initial troponin 0.07. Trend 2. Nitroglycerin when necessary. Continue patient's Eliquis and Plavix. Continue patient's pravastatin. Continuous cardiac telemetry. Latest EKG dated 07/11/17 shows uncertain a regular rhythm with electronic ventricular pacemaker, low QRS voltage in precordial leads, and possible anterior myocardial infarction of indeterminate age. Cardiology consult ordered in the ED and I appreciate the consult. Patient discussed with Dr. Skinner who agrees with plan of care. Patient is high risk for cardiac event and for the possibility based on current symptoms, history of stent placement and double bypass, current tobacco abuse, and risk factors. Inpatient. Qualifiers: Chest pain type: other chest pain Qualified Code(s): R07.89 - Other chest pain; R07.8 - Other chest pain (2) COPD exacerbation Current visit: Yes Status: Acute Acute exacerbation of COPD versus CHF. On exam pt. is wheezy bilaterally in all lobes. Currently smokes 1 PPD. Smoking cessation urged during exam. Supplemental O2 w/titration and SpO2 monitoring. Solumedrol 60 mg Q8 IVP. DuoNebs Q6 scheduled. Levaquin IVPB 750 mg Q48 for infection coverage. (3) Acute exacerbation of congestive heart failure Current visit: Yes Status: Acute Acute exacerbation of CHF versus COPD exacerbation. BNP 217 on admission. Echocardiogram on 04/18/17 shows LVEF of 50%, normal LV chamber size and function , mild concentric left ventricular hypertrophy, indeterminate diastolic function , atypical septal motion consistent with postoperative status, normal right ventricular structure and function, severely dilated left atrium, mild aortic stenosis with mean gradient 12 mmHg, mild mitral regurgitation, and no obvious vegetations noted. Hold pts. PO lasix and administer 40 mg IVP lasix BID. Monitor I&O and daily weight. 1.5L daily fluid restriction. Continuous cardiac telemetry. Cardiology consult ordered and I appreciate the consult. Qualifiers: Heart failure type: combined systolic and diastolic Qualified Code(s): I50.43 - Acute on chronic combined systolic (congestive) and diastolic ( congestive) heart failure (4) SOB (shortness of breath) Current visit: Yes Status: Acute Acute SOB/dyspnea r/t current acute exacerbation of CHF versus COPD exacerbation. Supplemental O2 w/titration and SpO2 monitoring. DuoNeb Q6 scheduled. Solumedrol IVP 60 mg Q8. CPAP HS. Hold pts. PO lasix and administer IVP lasix 40 mg BID. (5) Weakness Current visit: Yes Status: Acute Acute weakness for past 2-3 weeks r/t SOB/dyspnea. Falls/safety precautions, up with assist, and bedrest with bathroom privileges with assist only. PT/OT consults to assess patient for ambulation strength, safety, and stability. (6) TREY (acute kidney injury) Current visit: Yes Status: Acute Acute kidney injury w/GFR of 52 on admission. Creatinine 1.03. Will use IV fluids judiciously d/t current TREY and CHF exacerbation. Monitor I&O. Avoid nephrotoxins. Monitor f/u labs. (7) Tobacco abuse counseling Current visit: Yes Status: Acute Pt. counseled >10 minutes regarding the dangers of continued tobacco abuse on her health, regarding her CHF/COPD dx, her cardiac hx, and continuing SOB/ dyspnea. Methods for cessation discussed. 14 mg nicotine patch ordered daily. (8) HTN (hypertension) Current visit: Yes Status: Chronic Hx of chronic HTN. Monitor pt. and VS. Continue pts. digoxin, metoprolol, and spironolactone. Qualifiers: Hypertension type: essential hypertension Qualified Code(s): I10 - Essential (primary) hypertension (9) HLD (hyperlipidemia) Current visit: Yes Status: Chronic Hx of chronic HLD. Lipid panel in a.m. labs. Continue pts. Pravastatin. Qualifiers: Hyperlipidemia type: pure hypercholesterolemia Qualified Code(s): E78.00 - Pure hypercholesterolemia, unspecified; E78.0 - Pure hypercholesterolemia (10) Elevated troponin Current visit: Yes Status: Chronic Hx of chronically elevated troponin. Initial troponin 0.07 on admission. ACS versus current acute exacerbation of CHF/COPD. Will trend x2. Continuous cardiac telemetry. Continue Eliquis. Cardiology consult ordered in ED and I appreciate the consult. (11) Atrial fibrillation Current visit: Yes Status: Chronic Hx of chronic atrial fibrillation. Pacemaker/AICD in place. Continuous cardiac telemetry. Continue Eliquis and digoxin. Qualifiers: Atrial fibrillation type: chronic Qualified Code(s): I48.2 - Chronic atrial fibrillation (12) Coronary artery disease Current visit: Yes Status: Chronic Hx of CAD w/double bypass in 2012 and hx of stents x1. Continue patient's Eliquis, Plavix, pravastatin, digoxin, spironolactone, and metoprolol. Qualifiers: Coronary Disease-Associated Artery/Lesion type: [place] artery [place] vs. transplanted heart: unspecified whether [place] or transplanted heart Associated angina: without angina Qualified Code(s): I25.10 - Atherosclerotic heart disease of [place] coronary artery without angina pectoris (13) Leukocytosis Current visit: Yes Status: Chronic Hx of chronically elevated WBC. Currently 12.3 on admission. Pt. is asymptomatic for infection and afebrile. Hx of Enterococcus faecalis and blood cultures in March 2017. Blood cultures x2 ordered. Levaquin 750 mg IVPB Q48 for infection coverage for COPD. Monitor pt. and f/u labs. Qualifiers: Leukocytosis type: unspecified Qualified Code(s): D72.829 - Elevated white blood cell count, unspecified (14) Diabetes type 2, controlled Current visit: Yes Status: Chronic Hx of chronic DM controlled w/oral anti-hyperglycemic medications. Hold Glucophage and administer low-dose correction insulin sliding scale w/ hypoglycemic protocol. BG checks ACHS. A1c in a.m. labs. Qualifiers: Diabetes mellitus complication status: with circulatory complication Diabetes mellitus complication detail: with other circulatory complications Diabetes mellitus snf insulin use: without terminal gauger supervisor use Qualified Code( s): E11.59 - Type 2 diabetes mellitus with other circulatory complications (15) DVT prophylaxis Current visit: Yes Status: Acute Continue pts. Eliquis for DVT prophylaxis. Monitor pt. for signs of bleeding. Internal Medicine - H&P: HPI Chief complaint: Chest pain Admitted From: Emergency Dept Plans for Post Hospital Care: Home History of present illness: Ms. Rodarte is a 72 year old female w/PMH of arthritis, atrial fibrillation, CHF, COPD, CAD, diabetes controlled with oral anti-hyperglycemics, HTN, and previous MN presents from the ED with chief complaint of chest pain. Patient stated chest pain has been intermittent for the past 2-3 weeks but became worse today at her PCPs office during her checkup. EKG today shows changes from previous EKG with ST depressions. Patient describes chest pain is centralized in her chest accompanied with shortness of breath and diaphoresis. Describes pain as constant at first and intermittent pressure that came on at rest. No alleviating factors. Patient also reports numbness in her left arm 2 times today. Patient reports shortness of breath, dyspnea, chest pressure, chronic back pain, and weakness but denies recent illness, fever, chills, nausea, vomiting, changes in vision, headache, unusual bleeding, abdominal pain, diarrhea, constipation, dizziness, lightheadedness, pre-syncope, or syncope. Past Med Surg Social Fam HX - Past Medical History Source: patient, old records reviewed, obtained from family Medical history: arthritis, atrial fibrillation, CHF, COPD, coronary artery disease, diabetes, hypertension, myocardial infarction Psychiatric history: anxiety, depression - Past Surgical History Surgical History: angioplasty/stent (x1), coronary bypass (CABG) (April 2013) , hysterectomy, pacemaker/AICD - Social History Smoking Status: Current every day smoker Packs per day: 1 PPD Smokeless Tobacco Status: No Alcohol use: none Drug use: none Current living situation: Home, With Family Activity Level: Independent ambulation, Uses cane/walker Recent Out of Country Travel Within the Last 8 Weeks: No Exposure or Possible Exposure to Illness During Travel: No - Family History Father Adopted: No Race: Family Member Ethnicity: Non- Living Status: Age at : 38 Cause of : MN Hx Family Cardiac Disorders: Yes (MN) Mother Race: Family Member Ethnicity: Non- Living Status: Age at : 89 Cause of : Heart Failure Hx Family Cardiac Disorders: Yes (Afib, CAD, HF) Hx Family Endocrine Disorder: Yes (DM) Brother Race: Family Member Ethnicity: Non- Living Status: Age at : 56 Cause of : MVA Sister Race: Family Member Ethnicity: Non- Living Status: Age at : 73 Cause of : CKD Hx Family Genitourinary Disorders: Yes (CKD) Internal Medicine - H&P: Meds Apixaban [Eliquis] 5 mg PO BID 08/04/16 [History] Clopidogrel [Plavix] 75 mg PO QAM 08/04/16 [History] Ferrous Sulfate 325 mg PO QAM 08/04/16 [History] Fluticasone/Salmeterol [Advair 500-50 Diskus] 1 puff IH BID 08/04/16 [History] Pantoprazole Sodium [Protonix] 40 mg PO QAM 08/04/16 [History] Pravastatin Sodium [Pravachol] 80 mg PO HS 08/04/16 [History] Oxygen 3 - 5 l NS AD 12/06/16 [History] Acetaminophen/Diphenhydramine [Acetaminophen Pm Caplet] 2 tab PO HS 02/04/17 [ History] Digoxin [Lanoxin] 0.125 mg PO 1200 02/04/17 [History] Sennosides [Senna] 8.6 mg PO DAILY PRN 02/04/17 [History] Ipratropium/Albuterol Neb [Duoneb] 3 ml IH Q6HR 02/27/17 [History] Furosemide [Lasix] 40 mg PO BID 03/13/17 [History] Metoprolol XL (24 HR) Succ [Toprol Xl] 25 mg PO QAM 07/11/17 [History] hydrOXYzine HCl [Hydroxyzine HCl] 25 mg PO Q8H PRN 07/11/17 [History] metFORMIN [Glucophage] 500 mg PO QAM 07/11/17 [History] metOLazone [Zaroxolyn] 2.5 mg PO MOWEFR 07/11/17 [History] 3 Allergy/AdvReac Type Severity Reaction Status Date / Time bupropion [From Wellbutrin] Allergy Swelling Verified 04/11/17 12:53 of Lip/Tongue/Throat Sulfa (Sulfonamide Allergy Hives Verified 04/11/17 12:53 Antibiotics) Varenicline [From Chantix] Allergy Swelling Verified 04/11/17 12:53 of Lip/Tongue/Throat Iodinated Contrast- Oral and AdvReac See Verified 04/11/17 12:53 IV Dye Comments [Iodinated Contrast Media - Oral and] lidocaine AdvReac Hives Verified 04/27/17 16:18 tape Allergy Hives Uncoded 04/11/17 12:53 All Systems PM: A 10-system review of systems was performed and is negative for pertinent findings except as documented above in the HPI. - Constitutional Constitutional: as per HPI, weakness, no chills, no fever(s), no night sweats - EENT Eyes: no change in vision, no discharge, no pain, no photophobia Ears: no ear discharge, no ear pain, no tinnitus Nose, mouth and throat: no dysphagia, no nasal discharge, no neck pain, no sore throat - Breasts Breasts: as per HPI - Cardiovascular Cardiovascular ROS IM: as per HPI, chest pain (Pressure in central chest), diaphoresis, dyspnea, edema (Bilateral edema of LEs), irregular heart rhythm ( Atrial fibrillation), orthopnea, no lightheadedness, no palpitations, no syncope - Respiratory Respiratory: as per HPI, dyspnea, dyspnea on exertion, no cough, no wheezing, no excessive phlegm production - Gastrointestinal Gastrointestinal: no abdominal pain, no diarrhea, no hematemesis, no hematochezia, no melena, no nausea, no vomiting - Genitourinary Genitourinary: no change in urinary stream, no dysuria, no flank pain, no hematuria Menstruation: as per HPI, post hysterectomy - Musculoskeletal Musculoskeletal ROS IM: as per HPI, back pain, no numbness, no tingling - Integumentary Integumentary IM: no rash, no unusual bruising - Neurological Neurological ROS: as per HPI, weakness, no confusion, no convulsions, no focal weakness, no numbness, no tingling, no tremor(s) - Psychiatric Psychiatric: as per HPI - Endocrine Endocrine IM: as per HPI - Hematologic/Lymphatic Hematologic/Lymphatic: no easy bruising - Allergic/Immunologic Allergic/Immunologic: as per HPI - Constitutional Vitals: Temp Pulse Resp BP Pulse Ox 97.6 F 77 16 120/52 98 07/11/17 11:27 07/11/17 14:17 07/11/17 14:17 07/11/17 14:17 07/11/17 14:17 General appearance: Present: cooperative, mild distress, A&O X 3, pleasant, obese, answers questions appropriately - Head Head exam: Present: atraumatic, normocephalic - Eye Eye exam: Present: PERRL, conjuntiva pink, sclera anicteric Pupils: Present: PERRL - ENT ENT exam: Present: normal exam - Neck Neck exam general surgery: Present: normal inspection, supple, trachea midline. Absent: lymphadenopathy - Respiratory Respiratory exam: Present: accessory muscle use, decreased breath sounds, wheezes - Cardiovascular Cardiovascular exam: Present: irregular rhythm - GI/Abdominal GI/Abdominal exam: Present: normal bowel sounds, soft, no peritoneal signs. Absent: distended, tenderness - Rectal Rectal exam: Present: deferred - Additional comments: exam deferred. - Extremities Exam Extremities exam: Present: pedal edema, warm, radial pulses palpable and symmetrical. Absent: calf tenderness, cyanotic - Back Exam Back exam: Present: normal inspection - Neurological Exam Neurological exam: Present: CN II-XII intact, oriented X3, no focal deficits. Absent: pronater drift, facial droop, speech deficit - Psychiatric Psychiatric exam: Present: normal affect, normal mood - Skin Skin exam: Present: dry, intact Internal Med - H&P Results - Labs CBC & Chem 7: 07/11/17 11:30 07/11/17 11:30 Labs: Short CBC 07/11/17 Range/Units 11:30 WBC 12.3 H (4.3-11.1) K/mcL Hgb 12.7 (11.5-15.4) g/dL Hct 40.6 (35.3-44.9) % Plt Count 236 (140-400) K/mcL Neutrophils # 9.6 H (1.6-8.9) K/mcL BMP 07/11/17 11:30 Sodium 141 Potassium 3.5 Chloride 100 Carbon Dioxide 34 H BUN 16 Creatinine 1.03 Glucose 139 H Calcium 9.2 Cardiac Enzymes 07/11/17 Range/Units 11:30 Troponin I 0.07 H* (< 0.04) ng/mL - EKG Data Prior EKG available for review: yes Interpretation IM: suggestive of ischemia EKG comments: 07/11/17 15:56 EKG dated 07/11/17 07:23 shows atrial fibrillation with premature ventricular contractions, leftward axis, possible anteroseptal infarction of indeterminate age, and left ventricular hypertrophy. EKG dated 07/11/17 11:34 shows uncertain irregular rhythm with electronic ventricular pacemaker (contour analysis based on intrinsic rhythm), marked left axis deviation, low QRS voltage in precordial leads, possible anterior myocardial infarction of indeterminate age, ST deviation and moderate T-wave abnormality (consider lateral ischemia). EKG dated 07/11/17 12:00 shows uncertain irregular rhythm, electronic ventricular pacemaker (contour analysis based on intrinsic rhythm), low QRS voltage in precordial leads, possible anterior myocardial infarction of indeterminate age. - Impressions ITS Impressions Chest X-Ray 07/11/17 11:43 IMPRESSION: No acute process. Stable cardiomegaly D/ / Micha Mercado MD / Micha Mercado MD Interpreting Provider: Micha Mercado MD - Diagnostic Studies Chest x-ray Additional comments: Impressions Chest X-Ray 07/11/17 11:43 IMPRESSION: No acute process. Stable cardiomegaly D/ / Micha Mercado MD / Micha Mercado MD Interpreting Provider: Micha Mercado MD <Andrez Pineda T - Last Filed: 07/11/17 17:53> Date of Encounter: 07/11/17 Internal Medicine - H&P: HPI History of present illness: Ms. Rodarte is a 72 year old female All Systems PM: A 10-system review of systems was performed and is negative for pertinent findings except as documented above in the HPI. - Constitutional Vitals: Temp Pulse Resp BP Pulse Ox 97.6 F 59 16 105/73 99 07/11/17 11:27 07/11/17 16:38 07/11/17 16:38 07/11/17 16:38 07/11/17 17:46 Internal Med - H&P Results - Labs CBC & Chem 7: 07/11/17 11:30 07/11/17 11:30 - Attending Attestation Agree with plan
[2017-07-11] MEDS: Furosemide 40 MG/4 ML VIAL IVP SCH ×2 (16:27→19:59)
[2017-07-11] MEDS: Ipratropium/Albuterol Neb 3 ML IH SCH ×2 (16:30→22:29)
[2017-07-11] MEDS: Levofloxacin 750 MG/150 ML 750 MG/150 ML BAG IVPB SCH (16:34)
[2017-07-11] MEDS: Nicotine 14 MG PATCH.TD24 TD SCH (16:34)
[2017-07-11] MEDS: metOLazone 2.5 MG TABLET PO SCH (16:51)
[2017-07-11] MEDS: Insulin LISPRO 300 UNITS/3 ML VIAL SQ SCH (17:43)
[2017-07-11] MEDS: Apixaban 5 MG TABLET PO SCH (19:59)
[2017-07-11] MEDS ORDERED: NON-FORMULARY MEDICATION 1 EACH EACH (Acetaminophen/Diphenhydramine [Acetaminophen Pm Capl PO SCH (21:00)
[2017-07-11] MEDS: Budesonide/Formoterol 160/4.5 1 PUFF INH IH SCH (22:29)
[2017-07-12] MEDS: methylPREDNISolone 125 MG/2 ML VIAL IVP SCH ×3 (00:20→15:42)
[2017-07-12] MEDS: Ipratropium/Albuterol Neb 3 ML IH SCH ×4 (03:31→22:40)
[2017-07-12 05:58] LABS: Basophils % 0.2 %; Hematocrit 38.9 % (35.3-44.9); Hemoglobin 12.1 g/dL (11.5-15.4); Immature Granulocytes % 0.5 % (0-4); Lymphocytes # 0.6 K/mcL (0.6-4.6); Lymphocytes % 5.8 %; Mean Corpuscular HGB Conc 31.1 g/dL (31.6-35.5); Mean Corpuscular Hemoglobin 27.1 pg (28.0-33.3); Mean Corpuscular Volume 87.2 fL (83.0-100.0); Mean Platelet Volume 11.3 fL (9.4-12.4); Monocytes # 0.1 K/mcL (0.0-1.3); Monocytes % 0.9 %; Neutrophils # 8.9 K/mcL (1.6-8.9); Platelet Count 215 K/mcL (140-400); Red Blood Count 4.46 M/mcL (3.82-4.97); Red Cell Distribution Width 14.1 % (11.5-14.5); Segmented Neutrophils % 92.6 %
[2017-07-12 06:21] LABS: Bilirubin,Total 0.4 mg/dL (0.3-1.0); Calcium 8.9 mg/dL (8.6-10.3); Chol/HDL Ratio 6.8 (0-4.9); Magnesium 1.7 mg/dL (1.6-2.6); Potassium 3.7 mEq/L (3.5-5.1); Total Protein 5.9 g/dL (6.4-8.9)
[2017-07-12] MEDS ORDERED: Aspirin Enteric Coated 81 MG Tablet PO SCH (09:00)
[2017-07-12] MEDS: Insulin LISPRO 300 UNITS/3 ML VIAL SQ SCH ×5 (09:36→23:53)
[2017-07-12] MEDS: Apixaban 5 MG TABLET PO SCH ×2 (09:37→21:54)
[2017-07-12] MEDS: Nicotine 14 MG PATCH.TD24 TD SCH (09:37)
[2017-07-12] MEDS: Metoprolol XL (24 HR) Succ 25 MG TAB.ER.24H PO SCH (09:38)
[2017-07-12] MEDS: Furosemide 40 MG/4 ML VIAL IVP SCH ×2 (09:38→19:00)
--- NOTE | 2017-07-12 09:38 | Internal Med Progress Note ---
Date of Encounter: 07/12/17 Time of Encounter: 09:36 - Assessment and plan (1) NSTEMI (non-ST elevated myocardial infarction) Current Visit: Yes Status: Acute Assessment and plan: Chest pain with elevated troponin suggestive of non-STEMI cardiology has been consulted (2) Chronic anticoagulation Current Visit: No Status: Chronic Assessment and plan: Patient is some Advil place for atrial fibrillation (3) Hypertension Current Visit: No Status: Chronic Assessment and plan: Chronic and well controlled Qualifiers: Hypertension type: essential hypertension Qualified Code(s): I10 - Essential (primary) hypertension (4) Nicotine dependence Current Visit: No Status: Chronic Assessment and plan: Chronic Qualifiers: Nicotine product type: cigarettes Substance use status: other nicotine- induced disorder Qualified Code(s): F17.218 - Nicotine dependence, cigarettes , with other nicotine-induced disorders (5) Atrial fibrillation Current Visit: No Status: Chronic Assessment and plan: Chronic rate well controlled Qualifiers: Atrial fibrillation type: chronic Qualified Code(s): I48.2 - Chronic atrial fibrillation (6) CAD (coronary artery disease) Current Visit: No Status: Chronic Assessment and plan: She of CABG with recurrent angina Qualifiers: Coronary Disease-Associated Artery/Lesion type: bypass graft [place] vs. transplanted heart: [place] heart Associated angina: with stable angina Qualified Code(s): I25.708 - Atherosclerosis of coronary artery bypass graft(s) , unspecified, with other forms of angina pectoris (7) COPD (chronic obstructive pulmonary disease) Current Visit: No Status: Chronic Assessment and plan: Chronic no active wheezing Qualifiers: COPD type: unspecified COPD Qualified Code(s): J44.9 - Chronic obstructive pulmonary disease, unspecified (8) Type 2 diabetes mellitus Current Visit: No Status: Chronic Assessment and plan: Chronic continue home medication and sliding scale Qualifiers: Diabetes mellitus complication status: without complication Diabetes mellitus intermodal dispatcher insulin use: without fdc use Qualified Code(s): E11.9 - Type 2 diabetes mellitus without complications (9) Elevated troponin Current Visit: Yes Status: Chronic (10) Chest pain Current Visit: No Status: Acute Qualifiers: Chest pain type: unspecified Qualified Code(s): R07.9 - Chest pain, unspecified (11) HTN (hypertension) Current Visit: Yes Status: Chronic Qualifiers: Hypertension type: essential hypertension Qualified Code(s): I10 - Essential (primary) hypertension - Subjective Interval history: Patient with history of atrial fibrillation, CHF, COPD, CAD and diabetes patient admitted with 2-3 weeks of recurrent chest pain. Troponin is elevated and I do not has been consulted. Since admission patient no more chest pain hemodynamically stable - Constitutional Vitals: Temp Pulse Resp BP Pulse Ox 97.3 F L 73 16 124/78 97 07/12/17 07:35 07/12/17 07:35 07/12/17 07:35 07/12/17 07:35 07/12/17 07:35 General appearance: Present: cooperative, mild distress, A&O X 3, pleasant, obese, answers questions appropriately - Eye Eye exam: Present: PERRL, conjuntiva pink, sclera anicteric Pupils: Present: PERRL - Neck Neck exam general surgery: Present: supple, trachea midline. Absent: lymphadenopathy - Respiratory Respiratory exam: Present: CTAB. Absent: accessory muscle use, rales, rhonchi, wheezes - Cardiovascular Cardiovascular exam: Present: RRR, +S1, +S2. Absent: diastolic murmur, gallop, rubs, systolic murmur - GI/Abdominal GI/Abdominal exam: Present: normal bowel sounds, soft, no peritoneal signs. Absent: distended, tenderness - Extremities Exam Extremities exam: Present: warm, radial pulses palpable and symmetrical. Absent : calf tenderness, cyanotic, pedal edema Internal Medicine: Result - Labs CBC & Chem 7: 07/12/17 05:13 07/12/17 05:13 Labs: Short CBC 07/12/17 Range/Units 05:13 WBC 9.6 (4.3-11.1) K/mcL Hgb 12.1 (11.5-15.4) g/dL Hct 38.9 (35.3-44.9) % Plt Count 215 (140-400) K/mcL Neutrophils # 8.9 (1.6-8.9) K/mcL BMP 07/12/17 05:13 Sodium 139 Potassium 3.7 Chloride 99 Carbon Dioxide 30 H BUN 18 Creatinine 1.11 Glucose 214 H Calcium 8.9 Cardiac Enzymes 07/11/17 07/12/17 Range/Units 17:59 00:38 Troponin I 0.07 H* 0.08 H* (< 0.04) ng/mL Liver Function 07/12/17 Range/Units 05:13 Total Bilirubin 0.4 (0.3-1.0) mg/dL AST 12 L (13-39) Units/L ALT 12 (7-52) Units/L Alkaline Phosphatase 130 H (34-104) Units/L Consult Discharge Plan - Plan Referrals: Hal Monroy MD [Primary Care Provider] -
[2017-07-12] MEDS: Budesonide/Formoterol 160/4.5 1 PUFF INH IH SCH ×2 (10:56→22:40)
[2017-07-12] MEDS: *HR* Digoxin 0.125 MG TABLET PO SCH (12:18)
--- NOTE | 2017-07-12 12:41 | Cardiology Consult Note ---
<Carlos Osborne - Last Filed: 07/12/17 13:00> Date of Encounter: 07/12/17 Time of Encounter: 12:39 Assessment and Plan (1) Chest pain Current Visit: Yes Status: Acute Now chest pain free. Known CAD s/p CABG in 2012. Last [facility] 12/2015- Severe three vessel CAD. SVG -LAD occluded proximally. There was a 95% stenosis in the PLAD. SVG-RCA was patent. Jump graft to PDA was occluded. There was a 75% stenosis in the mPDA and RONEL was placed. TTE- LVEF 50%. Normal LV chamber size and function. Mild concentric left ventricular hypertrophy. Indeterminate diastolic function. Atypical septal motion consistent with post-operative status. Normal right ventricular structure and function. Severely dilated left atrium. Mild aortic stenosis. Mean gradient 12 mmHg. Mild mitral regurgitation. No evidence of pulmonary hypertension. A device lead was visualized in the right atrium and right ventricle. No obvious vegetations noted. Recommend repeat TTE or consider EL as clinically indicated. Troponin elevation appears to be chronic over past three admissions. Elevated up to 0.08 this admission. With known CAd and chest pain concerning for angina I discussed a stress test vs. medical management. She does not wish to have any invasive procedures such as a LHC and prefers medical management. Noted to decline further testing in the past. She is a DNRCCA. Add imdur. Continue plavix, statin, and bb. Qualifiers: Chest pain type: other chest pain Qualified Code(s): R07.89 - Other chest pain; R07.8 - Other chest pain (2) Atrial fibrillation Current Visit: Yes Status: Chronic H/o chronic afib. Failed tikosyn in the past. Appears to be rate controlled. Continue digoxin and toprol XL. On eliquis for AC. Qualifiers: Atrial fibrillation type: chronic Qualified Code(s): I48.2 - Chronic atrial fibrillation (3) Coronary artery disease Current Visit: Yes Status: Chronic H/o CABG and previous PCI. Continue plavix, statin, and bb. Not on asa to avoid triple therapy. Qualifiers: Coronary Disease-Associated Artery/Lesion type: [place] artery [place] vs. transplanted heart: unspecified whether [place] or transplanted heart Associated angina: without angina Qualified Code(s): I25.10 - Atherosclerotic heart disease of [place] coronary artery without angina pectoris Discussion w patient/family: The assessment and plan as outlined above was discussed with the patient and/or family members who expressed understanding and agreement. All questions were answered. Thank you for involving us in the care of your patient. Please call with any questions. History of Present Illness Consult date: 07/12/17 Consult reason: chest pain Chief complaint: Chest pain History of present illness: Ms. Rodarte is a 72 year old female with a past medical history of CAD s/p CABG and previous PCI, afib on eliquis, COPD, HTN, HLD, dementia, and ICD who resents from her PCP office with Chest pain. She c/o mid-sternal non-radiating chest pain for several hours that started after she walked into the out-pt clinic. She states nothing relieved her pain. She also c/o SOB. She is currently pain free. Cardiology consulted for elevated troponin. As of note she is a poor historian. She cannot recall if she has heart disease. Some health history information is obtained from the chart. She follows with [facility]. Previous cardiac testing. [facility] 12/2015- Severe three vessel CAD. SVG -LAD occluded proximally. There was a 95% stenosis in the PLAD. SVG-RCA was patent. Jump graft to PDA was occluded. There was a 75% stenosis in the mPDA and RONEL was placed. TTE- LVEF 50%. Normal LV chamber size and function. Mild concentric left ventricular hypertrophy. Indeterminate diastolic function. Atypical septal motion consistent with post-operative status. Normal right ventricular structure and function. Severely dilated left atrium. Mild aortic stenosis. Mean gradient 12 mmHg. Mild mitral regurgitation. No evidence of pulmonary hypertension. A device lead was visualized in the right atrium and right ventricle. No obvious vegetations noted. Recommend repeat TTE or consider EL as clinically indicated. Past Med Surg Social Fam HX - Past Medical History Attestation: Yes The following information was validated with the patient. Medical history: arthritis, atrial fibrillation, CHF, COPD, coronary artery disease, diabetes, hypertension, myocardial infarction Psychiatric history: anxiety, depression - Past Surgical History Surgical History: angioplasty/stent, coronary bypass (CABG), hysterectomy, pacemaker/AICD - Social History Smoking Status: Current every day smoker Packs per day: 1 PPD Smokeless Tobacco Status: No Alcohol use: none Drug use: none - Family History Father Adopted: No Race: Family Member Ethnicity: Non- Living Status: Age at : 38 Cause of : [place] Hx Family Cardiac Disorders: Yes ([place]) Hx Family Respiratory Disorders: No Hx Family Cancer: No Hx Family GI Disorders: No Hx Family Endocrine Disorder: No Hx Family Neuromuscular Disorders: No Hx Family Neurologic Disorders: No Hx Family HEENT Disorders: No Hx Family Autoimmune Disorders: No Mother Race: Family Member Ethnicity: Non- Living Status: Age at : 89 Cause of : Heart Failure Hx Family Cardiac Disorders: Yes (Afib, CAD, HF) Hx Family Endocrine Disorder: Yes (DM) Brother Race: Family Member Ethnicity: Non- Living Status: Age at : 56 Cause of : MVA Sister Race: Family Member Ethnicity: Non- Living Status: Age at : 73 Cause of : CKD Hx Family Genitourinary Disorders: Yes (CKD) Medications and Allergies Apixaban [Eliquis] 5 mg PO BID 08/04/16 [History] Clopidogrel [Plavix] 75 mg PO QAM 08/04/16 [History] Ferrous Sulfate 325 mg PO QAM 08/04/16 [History] Fluticasone/Salmeterol [Advair 500-50 Diskus] 1 puff IH BID 08/04/16 [History] Pantoprazole Sodium [Protonix] 40 mg PO QAM 08/04/16 [History] Pravastatin Sodium [Pravachol] 80 mg PO HS 08/04/16 [History] Oxygen 3 - 5 l NS AD 12/06/16 [History] Acetaminophen/Diphenhydramine [Acetaminophen Pm Caplet] 2 tab PO HS 02/04/17 [ History] Digoxin [Lanoxin] 0.125 mg PO 1200 02/04/17 [History] Sennosides [Senna] 8.6 mg PO DAILY PRN 02/04/17 [History] Ipratropium/Albuterol Neb [Duoneb] 3 ml IH Q6HR 02/27/17 [History] Furosemide [Lasix] 40 mg PO BID 03/13/17 [History] Metoprolol XL (24 HR) Succ [Toprol Xl] 25 mg PO QAM 07/11/17 [History] hydrOXYzine HCl [Hydroxyzine HCl] 25 mg PO Q8H PRN 07/11/17 [History] metFORMIN [Glucophage] 500 mg PO QAM 07/11/17 [History] metOLazone [Zaroxolyn] 2.5 mg PO MOWEFR 07/11/17 [History] 3 Allergy/AdvReac Type Severity Reaction Status Date / Time bupropion [From Wellbutrin] Allergy Swelling Verified 04/11/17 12:53 of Lip/Tongue/Throat Sulfa (Sulfonamide Allergy Hives Verified 04/11/17 12:53 Antibiotics) Varenicline [From Chantix] Allergy Swelling Verified 04/11/17 12:53 of Lip/Tongue/Throat Iodinated Contrast- Oral and AdvReac See Verified 04/11/17 12:53 IV Dye Comments [Iodinated Contrast Media - Oral and] lidocaine AdvReac Hives Verified 04/27/17 16:18 tape Allergy Hives Uncoded 04/11/17 12:53 All Systems Review: The remainder of the systems were reviewed and are negative Physical Examination Vital Signs, Last 4 Hours Temp Pulse Resp BP Pulse Ox 07/12/17 11:45 98.0 F 66 16 91/48 97 07/12/17 10:58 18 97 General: Conversant, No Apparent Distress HEENT: Atraumatic, Normocephaly, Mucus Membranes Moist Neck: No JVD, Normal carotid pulses Cardiac: Other (irregular) Lungs: Normal Breath Sounds, No Wheeze, Rales, Rhonchi Neuro: Alert and responsive, No focal deficits noted Abdomen: Soft, Non-Tender Skin: No rashes noted on visualized skin Musculoskeletal: No Chest Wall Tenderness Extremities: No Clubbing, No Cyanosis, No Edema, Normal Pulses Results 07/12/17 05:13 07/12/17 05:13 Lab Results 07/11/17 07/12/17 07/12/17 17:59 00:38 05:13 WBC 9.6 Hgb 12.1 Hct 38.9 Plt Count 215 Sodium Potassium Chloride Carbon Dioxide BUN Creatinine Glucose Calcium Magnesium Total Bilirubin AST ALT Alkaline Phosphatase Troponin I 0.07 H* 0.08 H* 07/12/17 05:13 WBC Hgb Hct Plt Count Sodium 139 Potassium 3.7 Chloride 99 Carbon Dioxide 30 H BUN 18 Creatinine 1.11 Glucose 214 H Calcium 8.9 Magnesium 1.7 Total Bilirubin 0.4 AST 12 L ALT 12 Alkaline Phosphatase 130 H Troponin I - Imaging and Cardiology Echo: report reviewed Consult Discharge Plan - Plan Referrals: Hal Monroy MD [Primary Care Provider] - <Eduar Rubin - Last Filed: 07/12/17 14:31> Date of Encounter: 07/12/17 - Attending Attestation 72 YOF with extensive hx of CAD s/p CABG x 4 years ago with known occluded SVG to LAD and jump graft to PDA. She has had improvement in her EF on medical management and her trops have been chronically elevated (adynamic without any peak) complains of chest pain and presented to the ED. She has declined further cardiac workup at this time but is agreeable to medical management. Currently chest pain free resting without any complaints. Will start her on imdur and titrate as tolerated. Assessment and Plan Discussion w patient/family: The assessment and plan as outlined above was discussed with the patient and/or family members who expressed understanding and agreement. All questions were answered. Thank you for involving us in the care of your patient. Please call with any questions. History of Present Illness History of present illness: Ms. Rodarte is a 72 year old female All Systems Review: The remainder of the systems were reviewed and are negative Physical Examination Vital Signs, Last 4 Hours Temp Pulse Resp BP Pulse Ox 07/12/17 11:45 98.0 F 66 16 91/48 97 07/12/17 10:58 18 97 Results 07/12/17 05:13 07/12/17 05:13 Lab Results 07/11/17 07/12/17 07/12/17 17:59 00:38 05:13 WBC 9.6 Hgb 12.1 Hct 38.9 Plt Count 215 Sodium Potassium Chloride Carbon Dioxide BUN Creatinine Glucose Calcium Magnesium Total Bilirubin AST ALT Alkaline Phosphatase Troponin I 0.07 H* 0.08 H* 07/12/17 05:13 WBC Hgb Hct Plt Count Sodium 139 Potassium 3.7 Chloride 99 Carbon Dioxide 30 H BUN 18 Creatinine 1.11 Glucose 214 H Calcium 8.9 Magnesium 1.7 Total Bilirubin 0.4 AST 12 L ALT 12 Alkaline Phosphatase 130 H Troponin I
[2017-07-12] MEDS: Isosorbide MONOnitrate (24 HR) 30 MG TAB.ER.24H PO SCH (15:42)
--- NOTE | 2017-07-12 18:38 | Electrocardiograph Report ---
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1945 Requested By: Compa Sánchez Order Number: [id number] Reading MD: Bo Cueva DO Measurements Intervals [place] Rate: 72 P: ID: 0 QRS: -33 QRSD: 106 T: 154 QT: 374 QTc: 398 Interpretive Statements UNCERTAIN IRREGULAR RHYTHM ELECTRONIC VENTRICULAR PACEMAKER -- CONTOUR ANALYSIS BASED ON INTRINSIC RHYTHM MARKED LEFT AXIS DEVIATION [QRS AXIS < -30] LOW QRS VOLTAGE IN PRECORDIAL LEADS [QRS DEFLECTION < 1.0 mV IN CHEST LEADS] POSSIBLE ANTERIOR MYOCARDIAL INFARCTION [30 ms Q WAVE IN V3/V4, OR R < 0.2 mV IN V4], OF INDETERMINATE AGE ST DEVIATION AND MODERATE T-WAVE ABNORMALITY, CONSIDER LATERAL ISCHEMIA [-0.1+ mV T WAVE IN I/aVL/V5/V6] Electronically Signed On 07-12-2017 18:36:02 EST by Bo Cueva DO
[2017-07-12 19:33] LABS: Albumin 3.4 g/dL (3.5-5.7); Albumin/Globulin Ratio 1.4 (1.1-2.2); Globulin 2.5 g/dL (2.4-3.5)
[2017-07-13] MEDS: methylPREDNISolone 125 MG/2 ML VIAL IVP SCH ×3 (00:08→15:59)
[2017-07-13] MEDS: Ipratropium/Albuterol Neb 3 ML IH SCH ×4 (04:23→20:54)
[2017-07-13 05:16] LABS: Basophils % 0.1 %; Hematocrit 32.6 % (35.3-44.9); Hemoglobin 10.6 g/dL (11.5-15.4); Immature Granulocytes % 0.7 % (0-4); Lymphocytes # 0.7 K/mcL (0.6-4.6); Lymphocytes % 4.9 %; Mean Corpuscular HGB Conc 32.5 g/dL (31.6-35.5); Mean Corpuscular Hemoglobin 27.7 pg (28.0-33.3); Mean Corpuscular Volume 85.1 fL (83.0-100.0); Mean Platelet Volume 11.5 fL (9.4-12.4); Monocytes # 0.4 K/mcL (0.0-1.3); Monocytes % 2.9 %; Neutrophils # 13.2 K/mcL (1.6-8.9); Platelet Count 218 K/mcL (140-400); Red Blood Count 3.83 M/mcL (3.82-4.97); Segmented Neutrophils % 91.4 %
[2017-07-13 05:35] LABS: Albumin 3.3 g/dL (3.5-5.7); Albumin/Globulin Ratio 1.4 (1.1-2.2); Bilirubin,Total 0.3 mg/dL (0.3-1.0); Calcium 8.8 mg/dL (8.6-10.3); Globulin 2.3 g/dL (2.4-3.5); Potassium 3.2 mEq/L (3.5-5.1); Total Protein 5.6 g/dL (6.4-8.9)
[2017-07-13] MEDS: Apixaban 5 MG TABLET PO SCH ×2 (08:21→21:45)
[2017-07-13] MEDS: Insulin LISPRO 300 UNITS/3 ML VIAL SQ SCH ×4 (08:22→21:46)
[2017-07-13] MEDS: Nicotine 14 MG PATCH.TD24 TD SCH (08:22)
--- NOTE | 2017-07-13 09:04 | Internal Med Progress Note ---
Date of Encounter: 07/13/17 Time of Encounter: 09:01 - Assessment and plan (1) NSTEMI (non-ST elevated myocardial infarction) Current Visit: Yes Status: Acute Assessment and plan: Patient has chronically elevated troponin per cardiology no intervention most restless plan continue medical treatment imdur added (2) Chronic anticoagulation Current Visit: No Status: Chronic Assessment and plan: Continue anti-coagulation (3) Hypertension Current Visit: No Status: Chronic Qualifiers: Qualified Code(s): I10 - Essential (primary) hypertension (4) Nicotine dependence Current Visit: No Status: Chronic Assessment and plan: chronic Qualifiers: Nicotine product type: cigarettes Substance use status: other nicotine- induced disorder Qualified Code(s): F17.218 - Nicotine dependence, cigarettes , with other nicotine-induced disorders (5) Atrial fibrillation Current Visit: No Status: Chronic Assessment and plan: on eliquis rate controlled Qualifiers: Atrial fibrillation type: chronic Qualified Code(s): I48.2 - Chronic atrial fibrillation (6) CAD (coronary artery disease) Current Visit: No Status: Chronic Assessment and plan: remains chest painfree Qualifiers: Coronary Disease-Associated Artery/Lesion type: bypass graft [place] vs. transplanted heart: [place] heart Associated angina: with stable angina Qualified Code(s): I25.708 - Atherosclerosis of coronary artery bypass graft(s) , unspecified, with other forms of angina pectoris (7) COPD (chronic obstructive pulmonary disease) Current Visit: No Status: Chronic Qualifiers: COPD type: unspecified COPD Qualified Code(s): J44.9 - Chronic obstructive pulmonary disease, unspecified (8) Type 2 diabetes mellitus Current Visit: No Status: Chronic Assessment and plan: continue sliding scale Qualifiers: Diabetes mellitus complication status: without complication Diabetes mellitus detention insulin use: without estimator project manager use Qualified Code(s): E11.9 - Type 2 diabetes mellitus without complications (9) Elevated troponin Current Visit: Yes Status: Chronic Assessment and plan: cardiology evaluation noted (10) Chest pain Current Visit: No Status: Acute Qualifiers: Chest pain type: unspecified Qualified Code(s): R07.9 - Chest pain, unspecified (11) HTN (hypertension) Current Visit: Yes Status: Chronic Qualifiers: Hypertension type: essential hypertension Qualified Code(s): I10 - Essential (primary) hypertension - Subjective Interval history: Patient with history of atrial fibrillation, CHF, COPD, CAD and diabetes patient admitted with 2-3 weeks of recurrent chest pain. Troponin is elevated and I do not has been consulted. Since admission patient no more chest pain hemodynamically stable Today July 13 patient says she has no more chest pain center was more short of breath last night cardiology evaluation noted no further cardiac intervention creatinine is up to 1.3 from baseline also potassium at 3.2 Will replace and decrease Lasix dose and recheck creatinine tomorrow if stable she probably can be discharged - Constitutional Vitals: Temp Pulse Resp BP Pulse Ox 97.9 F 73 16 95/49 97 07/13/17 06:44 07/13/17 06:44 07/13/17 06:44 07/13/17 06:44 07/13/17 06:44 General appearance: Present: cooperative, mild distress, A&O X 3, pleasant, obese, answers questions appropriately - Eye Eye exam: Present: PERRL, conjuntiva pink, sclera anicteric Pupils: Present: PERRL - Neck Neck exam general surgery: Present: supple, trachea midline. Absent: lymphadenopathy - Respiratory Respiratory exam: Present: rhonchi - Cardiovascular Cardiovascular exam: Present: RRR, +S1, +S2. Absent: diastolic murmur, gallop, rubs, systolic murmur - GI/Abdominal GI/Abdominal exam: Present: normal bowel sounds, soft, no peritoneal signs. Absent: distended, tenderness Internal Medicine: Result - Labs CBC & Chem 7: 07/13/17 04:36 07/13/17 04:36 Labs: Short CBC 07/13/17 Range/Units 04:36 WBC 14.4 H (4.3-11.1) K/mcL Hgb 10.6 L D (11.5-15.4) g/dL Hct 32.6 L (35.3-44.9) % Plt Count 218 (140-400) K/mcL Neutrophils # 13.2 H (1.6-8.9) K/mcL BMP 07/13/17 04:36 Sodium 135 L Potassium 3.2 L Chloride 96 L Carbon Dioxide 30 H BUN 33 H Creatinine 1.31 H Glucose 338 H Calcium 8.8 Liver Function 07/12/17 07/13/17 Range/Units 05:13 04:36 Total Bilirubin 0.3 (0.3-1.0) mg/dL AST 9 L (13-39) Units/L ALT 11 (7-52) Units/L Alkaline Phosphatase 106 H (34-104) Units/L Albumin 3.4 L 3.3 L (3.5-5.7) g/dL Consult Discharge Plan - Plan Referrals: Hal Monroy MD [Primary Care Provider] -
[2017-07-13] MEDS: Budesonide/Formoterol 160/4.5 1 PUFF INH IH SCH ×2 (11:49→20:54)
[2017-07-13] MEDS: Furosemide 40 MG/4 ML VIAL IVP SCH ×2 (12:24→21:45)
[2017-07-13] MEDS: *HR* Digoxin 0.125 MG TABLET PO SCH (12:25)
[2017-07-13] MEDS: Metoprolol XL (24 HR) Succ 25 MG TAB.ER.24H PO SCH (12:25)
[2017-07-13] MEDS: Isosorbide MONOnitrate (24 HR) 30 MG TAB.ER.24H PO SCH (12:25)
[2017-07-13] MEDS: metOLazone 2.5 MG TABLET PO SCH (12:25)
[2017-07-13 13:40] LABS: Hemoglobin A1C 6.9 %
[2017-07-13] MEDS: *HR* HYDROcodone/Acet 5/325 mg TABLET PO PRN (15:59)
[2017-07-13] MEDS: Levofloxacin 750 MG/150 ML 750 MG/150 ML BAG IVPB SCH (16:06)
--- NOTE | 2017-07-13 20:16 | Electrocardiograph Report ---
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
[2017-07-14] MEDS: methylPREDNISolone 125 MG/2 ML VIAL IVP SCH ×2 (00:04→09:00)
[2017-07-14] MEDS: Ipratropium/Albuterol Neb 3 ML IH SCH ×4 (03:37→22:27)
[2017-07-14 05:08] LABS: Basophils % 0.1 %; Hematocrit 32.6 % (35.3-44.9); Hemoglobin 10.5 g/dL (11.5-15.4); Immature Granulocytes % 0.7 % (0-4); Lymphocytes # 0.6 K/mcL (0.6-4.6); Lymphocytes % 3.3 %; Mean Corpuscular HGB Conc 32.2 g/dL (31.6-35.5); Mean Corpuscular Hemoglobin 27.6 pg (28.0-33.3); Mean Corpuscular Volume 85.8 fL (83.0-100.0); Mean Platelet Volume 11.7 fL (9.4-12.4); Monocytes # 0.6 K/mcL (0.0-1.3); Monocytes % 3.5 %; Neutrophils # 15.5 K/mcL (1.6-8.9); Platelet Count 223 K/mcL (140-400); Red Cell Distribution Width 14.4 % (11.5-14.5); Segmented Neutrophils % 92.4 %
[2017-07-14 05:28] LABS: Albumin 3.4 g/dL (3.5-5.7); Albumin/Globulin Ratio 1.5 (1.1-2.2); Bilirubin,Total 0.3 mg/dL (0.3-1.0); Calcium 8.8 mg/dL (8.6-10.3); Globulin 2.3 g/dL (2.4-3.5); Potassium 3.5 mEq/L (3.5-5.1); Total Protein 5.7 g/dL (6.4-8.9)
[2017-07-14] MEDS: Nicotine 14 MG PATCH.TD24 TD SCH (09:00)
[2017-07-14] MEDS: Isosorbide MONOnitrate (24 HR) 30 MG TAB.ER.24H PO SCH (09:00)
[2017-07-14] MEDS: Metoprolol XL (24 HR) Succ 25 MG TAB.ER.24H PO SCH (09:00)
[2017-07-14] MEDS: Apixaban 5 MG TABLET PO SCH ×2 (09:00→21:33)
[2017-07-14] MEDS: Insulin LISPRO 300 UNITS/3 ML VIAL SQ SCH ×6 (09:00→21:34)
--- NOTE | 2017-07-14 09:17 | Internal Med Progress Note ---
<Escobar Jo - Last Filed: 07/14/17 12:41> Date of Encounter: 07/14/17 Time of Encounter: 09:14 - Assessment and plan (1) NSTEMI (non-ST elevated myocardial infarction) Current Visit: Yes Status: Acute Assessment and plan: Presented with CP and elevated troponin Known CAD s/p CABG in 2012. Last [facility] 12/2015- Severe three vessel CAD. SVG -LAD occluded proximally. There was a 95% stenosis in the PLAD. SVG-RCA was patent. Jump graft to PDA was occluded. There was a 75% stenosis in the mPDA and RONEL was placed. TTE- LVEF 50%. Normal LV chamber size and function. Mild concentric left ventricular hypertrophy. Indeterminate diastolic function. Atypical septal motion consistent with post-operative status. Normal right ventricular structure and function. Severely dilated left atrium. Mild aortic stenosis. Mean gradient 12 mmHg. Mild mitral regurgitation. No evidence of pulmonary hypertension. A device lead was visualized in the right atrium and right ventricle. No obvious vegetations noted. Recommend repeat Troponin elevation appears to be chronic over past three admissions. Elevated up to 0.08 this admission. Patient does not wish to have any invasive procedures such as a LHC and prefers medical management -She is a DNRCCA. -Lipitor 20 mg PO HS -Plavix 75 mg PO QAM -Lasix 40 mg IV BID -Imdur 30mg PO daily (2) COPD exacerbation Current Visit: Yes Status: Acute Assessment and plan: -WC elevated at 16.7 -Levaquin 750 mg IV Q48 -Solumedrol 60 mg IV Q8 -Blood CX pending (3) Hypertension Current Visit: No Status: Chronic Assessment and plan: -BP this morning was 147/55 -Lopressor 25 mg PO QAM -Nitroglycerin 0.4mg SL Q5 PRN Qualifiers: Hypertension type: essential hypertension Qualified Code(s): I10 - Essential (primary) hypertension (4) Nicotine dependence Current Visit: No Status: Chronic Assessment and plan: -Chronic Qualifiers: Nicotine product type: cigarettes Substance use status: other nicotine- induced disorder Qualified Code(s): F17.218 - Nicotine dependence, cigarettes , with other nicotine-induced disorders (5) Atrial fibrillation Current Visit: Yes Status: Chronic Assessment and plan: -Eliqus 5mg PO BID -Digoxin 0.125 PO 1200 Qualifiers: Atrial fibrillation type: chronic Qualified Code(s): I48.2 - Chronic atrial fibrillation (6) Type 2 diabetes mellitus Current Visit: No Status: Chronic Assessment and plan: -ISS Qualifiers: Diabetes mellitus complication status: without complication Diabetes mellitus intermediate manager insulin use: without snf use Qualified Code(s): E11.9 - Type 2 diabetes mellitus without complications (7) Elevated troponin I level Current Visit: No Status: Acute Assessment and plan: -Chronic; no intervention at this time (8) TREY (acute kidney injury) Current Visit: Yes Status: Acute Assessment and plan: Elevated Cr this morning. -Possibly 2/2 lasix and steroids. -Lasix and metolazone have been held. -Fluids NS at 60 mls/hr have been started. - Subjective Interval history: Patient was seen and examined at bedside this morning. States that she is feeling well today. Denies having any chest pain or discomfort. Also denies nausea, vomiting, or shortness of breath. Patient is resting comfortably in bed and has no complaints at this time. - Constitutional Vitals: Temp Pulse Resp BP Pulse Ox 98.0 F 66 16 147/55 97 07/14/17 07:25 07/14/17 07:25 07/14/17 07:25 07/14/17 07:25 07/14/17 07:25 General appearance: Present: cooperative, mild distress, A&O X 3, pleasant, obese, answers questions appropriately - Head Head exam: Present: atraumatic, normocephalic - Eye Eye exam: Present: PERRL, conjuntiva pink, sclera anicteric Pupils: Present: PERRL - Neck Neck exam general surgery: Present: supple, trachea midline. Absent: lymphadenopathy - Respiratory Respiratory exam: Present: rhonchi. Absent: accessory muscle use, rales, wheezes Additional comments: Rhochi b/l - Cardiovascular Cardiovascular exam: Present: RRR, +S1, +S2. Absent: diastolic murmur, gallop, rubs, systolic murmur - Extremities Exam Extremities exam: Present: warm, radial pulses palpable and symmetrical. Absent : calf tenderness, cyanotic, pedal edema - Skin Skin exam: Present: dry, intact Internal Medicine: Result - Labs CBC & Chem 7: 07/14/17 03:30 07/14/17 03:30 Labs: Short CBC 07/14/17 Range/Units 03:30 WBC 16.7 H (4.3-11.1) K/mcL Hgb 10.5 L (11.5-15.4) g/dL Hct 32.6 L (35.3-44.9) % Plt Count 223 (140-400) K/mcL Neutrophils # 15.5 H (1.6-8.9) K/mcL BMP 07/14/17 03:30 Sodium 137 Potassium 3.5 Chloride 97 L Carbon Dioxide 31 H BUN 38 H Creatinine 1.52 H Glucose 279 H Calcium 8.8 Liver Function 07/14/17 Range/Units 03:30 Total Bilirubin 0.3 (0.3-1.0) mg/dL AST 10 L (13-39) Units/L ALT 11 (7-52) Units/L Alkaline Phosphatase 101 (34-104) Units/L Albumin 3.4 L (3.5-5.7) g/dL Consult Discharge Plan - Plan Referrals: Hal Monroy MD [Primary Care Provider] - <Jared Boggs H - Last Filed: 07/14/17 13:21> Date of Encounter: 07/14/17 - Constitutional Vitals: Temp Pulse Resp BP Pulse Ox 98.2 F 89 18 112/45 96 07/14/17 11:56 07/14/17 11:56 07/14/17 11:56 07/14/17 11:56 07/14/17 11:56 Internal Medicine: Result - Labs CBC & Chem 7: 07/14/17 03:30 07/14/17 03:30 Labs: Short CBC 07/14/17 Range/Units 03:30 WBC 16.7 H (4.3-11.1) K/mcL Hgb 10.5 L (11.5-15.4) g/dL Hct 32.6 L (35.3-44.9) % Plt Count 223 (140-400) K/mcL Neutrophils # 15.5 H (1.6-8.9) K/mcL BMP 07/14/17 03:30 Sodium 137 Potassium 3.5 Chloride 97 L Carbon Dioxide 31 H BUN 38 H Creatinine 1.52 H Glucose 279 H Calcium 8.8 Liver Function 03/03/18 Range/Units 03:30 Total Bilirubin 0.3 (0.3-1.0) mg/dL AST 10 L (13-39) Units/L ALT 11 (7-52) Units/L Alkaline Phosphatase 101 (34-104) Units/L Albumin 3.4 L (3.5-5.7) g/dL - Attending Attestation Acute chronic renal failure in the setting of chronic kidney disease stage III Mild hydration, hold Lasix and metolazone Steroid-induced hyperglycemia, start Levemir 15 units daily, Humalog 8 units 3 times a day plus insulin sliding scale May resume metformin upon discharge, latest hemoglobin A1c 6.9 I examined this patient and my medical decision-making was reviewed with the Resident Physician. I agree with the documented findings, disposition and treatment plan as described except to the extent set forth below.
[2017-07-14] MEDS: Budesonide/Formoterol 160/4.5 1 PUFF INH IH SCH ×2 (10:04→22:27)
[2017-07-14] MEDS ORDERED: 0.9 % Sodium Chloride 1,000 ML IVC SCH ×2 (12:30→13:18)
[2017-07-14] MEDS: Furosemide 40 MG/4 ML VIAL IVP SCH (13:07)
[2017-07-14] MEDS: Insulin DETEMIR 100 UNIT/ML X5UNITS SQ SCH (15:28)
[2017-07-14] MEDS: *HR* Digoxin 0.125 MG TABLET PO SCH (15:28)
[2017-07-14] MEDS: *HR* HYDROcodone/Acet 5/325 mg TABLET PO PRN (15:37)
[2017-07-15] MEDS: Ipratropium/Albuterol Neb 3 ML IH SCH ×2 (04:00→09:56)
[2017-07-15 07:32] VITALS: BP 116/55
[2017-07-15] MEDS: Isosorbide MONOnitrate (24 HR) 30 MG TAB.ER.24H PO SCH (08:15)
[2017-07-15] MEDS: Metoprolol XL (24 HR) Succ 25 MG TAB.ER.24H PO SCH (08:15)
[2017-07-15] MEDS: Apixaban 5 MG TABLET PO SCH (08:15)
[2017-07-15] MEDS: Nicotine 14 MG PATCH.TD24 TD SCH (08:15)
[2017-07-15] MEDS: Insulin LISPRO 300 UNITS/3 ML VIAL SQ SCH ×4 (08:16→13:00)
[2017-07-15] MEDS: Insulin DETEMIR 100 UNIT/ML X5UNITS SQ SCH (08:17)
[2017-07-15 08:21] LABS: Basophils % 0.2 %; Hematocrit 35.2 % (35.3-44.9); Hemoglobin 10.9 g/dL (11.5-15.4); Immature Granulocytes % 0.6 % (0-4); Lymphocytes # 1.4 K/mcL (0.6-4.6); Lymphocytes % 10.4 %; Mean Corpuscular Hemoglobin 27.5 pg (28.0-33.3); Mean Corpuscular Volume 88.7 fL (83.0-100.0); Mean Platelet Volume 11.5 fL (9.4-12.4); Monocytes # 1.3 K/mcL (0.0-1.3); Monocytes % 9.5 %; Neutrophils # 10.6 K/mcL (1.6-8.9); Platelet Count 241 K/mcL (140-400); Red Blood Count 3.97 M/mcL (3.82-4.97); Red Cell Distribution Width 14.3 % (11.5-14.5); Segmented Neutrophils % 79.3 %
[2017-07-15 08:40] LABS: Albumin 3.3 g/dL (3.5-5.7); Albumin/Globulin Ratio 1.3 (1.1-2.2); Bilirubin,Total 0.3 mg/dL (0.3-1.0); Calcium 8.5 mg/dL (8.6-10.3); Globulin 2.5 g/dL (2.4-3.5); Potassium 2.9 mEq/L (3.5-5.1); Total Protein 5.8 g/dL (6.4-8.9)
[2017-07-15] MEDS ORDERED: MethylPREDNISolone 40 MG/ML VIAL IVP SCH (09:00)
--- NOTE | 2017-07-15 09:14 | Internal Med Progress Note ---
Date of Encounter: 07/15/17 Time of Encounter: 09:10 - Assessment and plan (1) NSTEMI (non-ST elevated myocardial infarction) Current Visit: Yes Status: Acute Assessment and plan: Presented with CP and elevated troponin Known CAD s/p CABG in 2012. Last [facility] 12/2015- Severe three vessel CAD. SVG -LAD occluded proximally. There was a 95% stenosis in the PLAD. SVG-RCA was patent. Jump graft to PDA was occluded. There was a 75% stenosis in the mPDA and RONEL was placed. TTE- LVEF 50%. Normal LV chamber size and function. Mild concentric left ventricular hypertrophy. Indeterminate diastolic function. Atypical septal motion consistent with post-operative status. Normal right ventricular structure and function. Severely dilated left atrium. Mild aortic stenosis. Mean gradient 12 mmHg. Mild mitral regurgitation. No evidence of pulmonary hypertension. A device lead was visualized in the right atrium and right ventricle. No obvious vegetations noted. Recommend repeat Troponin elevation appears to be chronic over past three admissions. Elevated up to 0.08 this admission. Patient does not wish to have any invasive procedures such as a C and prefers medical management -She is a DNRCCA. -Lipitor 20 mg PO HS -Plavix 75 mg PO QAM -Lasix 40 mg IV BID -Imdur 30mg PO daily (2) COPD exacerbation Current Visit: Yes Status: Acute Assessment and plan: -Levaquin 750 mg IV Q48 -Solumedrol 60 mg IV Q8 -Blood CX pending (3) Hypertension Current Visit: No Status: Chronic Assessment and plan: -Lopressor 25 mg PO QAM -Nitroglycerin 0.4mg SL Q5 PRN Qualifiers: Hypertension type: essential hypertension Qualified Code(s): I10 - Essential (primary) hypertension (4) Nicotine dependence Current Visit: No Status: Chronic Assessment and plan: -Chronic Qualifiers: Nicotine product type: cigarettes Substance use status: other nicotine- induced disorder Qualified Code(s): F17.218 - Nicotine dependence, cigarettes , with other nicotine-induced disorders (5) Atrial fibrillation Current Visit: Yes Status: Chronic Assessment and plan: -Eliqus 5mg PO BID -Digoxin 0.125 PO 1200 Qualifiers: Atrial fibrillation type: chronic Qualified Code(s): I48.2 - Chronic atrial fibrillation (6) Type 2 diabetes mellitus Current Visit: No Status: Chronic Assessment and plan: -Levemir 15 units daily, Humalog 8 units 3 times a day plus insulin sliding scale -May resume metformin upon discharge, latest hemoglobin A1c 6.9 Qualifiers: Diabetes mellitus complication status: without complication 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 -Lasix and metolazone have been held. -Fluids NS at 60 mls/hr have been started. - Subjective Interval history: Patient was seen and examined at bedside this morning. States that she is feeling well today. Denies having any chest pain or discomfort. Also denies nausea, vomiting, or shortness of breath. Patient is resting comfortably in bed and has no complaints at this time. - Constitutional Vitals: Temp Pulse Resp BP Pulse Ox 97.9 F 61 16 116/55 97 07/15/17 07:30 07/15/17 07:30 07/15/17 07:30 07/15/17 07:30 07/15/17 07:30 General appearance: Present: cooperative, mild distress, A&O X 3, pleasant, obese, answers questions appropriately - Head Head exam: Present: atraumatic, normocephalic - Eye Eye exam: Present: PERRL, conjuntiva pink, sclera anicteric Pupils: Present: PERRL - Neck Neck exam general surgery: Present: supple, trachea midline. Absent: lymphadenopathy - Respiratory Respiratory exam: Present: CTAB. Absent: accessory muscle use, rales, rhonchi, wheezes - Cardiovascular Cardiovascular exam: Present: RRR, +S1, +S2. Absent: diastolic murmur, gallop, rubs, systolic murmur - GI/Abdominal GI/Abdominal exam: Present: normal bowel sounds, soft, no peritoneal signs. Absent: distended, tenderness - Extremities Exam Extremities exam: Present: warm, radial pulses palpable and symmetrical. Absent : calf tenderness, cyanotic, pedal edema - Neurological Exam Neurological exam: Present: CN II-XII intact, oriented X3, no focal deficits. Absent: pronater drift, facial droop, speech deficit - Skin Skin exam: Present: dry, intact Internal Medicine: Result - Labs CBC & Chem 7: 07/15/17 07:20 07/15/17 07:20 Labs: Short CBC 07/15/17 Range/Units 07:20 WBC 13.3 H (4.3-11.1) K/mcL Hgb 10.9 L (11.5-15.4) g/dL Hct 35.2 L (35.3-44.9) % Plt Count 241 (140-400) K/mcL Neutrophils # 10.6 H (1.6-8.9) K/mcL BMP 07/15/17 07:20 Sodium 142 Potassium 2.9 L Chloride 102 Carbon Dioxide 32 H BUN 39 H Creatinine 1.27 H Glucose 161 H Calcium 8.5 L Liver Function 07/15/17 Range/Units 07:20 Total Bilirubin 0.3 (0.3-1.0) mg/dL AST 10 L (13-39) Units/L ALT 13 (7-52) Units/L Alkaline Phosphatase 87 (34-104) Units/L Albumin 3.3 L (3.5-5.7) g/dL Consult Discharge Plan - Plan Referrals: Hal Monroy MD [Primary Care Provider] -
[2017-07-15] MEDS: Budesonide/Formoterol 160/4.5 1 PUFF INH IH SCH (09:56)
--- NOTE | 2017-07-15 10:45 | Discharge Summary ---
<Escobar Jo - Last Filed: 07/15/17 10:46> Orders not resulted at time of discharge: Pending orders 07/12/17 13:02 EKG [ECG 12 lead ECG] [ECG] Routine Date of Encounter: 07/15/17 Time of Encounter: 10:43 - Discharge Diagnosis (1) NSTEMI (non-ST elevated myocardial infarction) Priority: Primary Status: Acute (2) COPD exacerbation Priority: Secondary Status: Acute (3) Hypertension Priority: Secondary Status: Chronic Qualifiers: Hypertension type: essential hypertension Qualified Code(s): I10 - Essential (primary) hypertension (4) Nicotine dependence Priority: Secondary Status: Chronic Qualifiers: Nicotine product type: cigarettes Substance use status: other nicotine- induced disorder Qualified Code(s): F17.218 - Nicotine dependence, cigarettes , with other nicotine-induced disorders (5) Atrial fibrillation Priority: Secondary Status: Chronic Qualifiers: Atrial fibrillation type: chronic Qualified Code(s): I48.2 - Chronic atrial fibrillation (6) Type 2 diabetes mellitus Priority: Secondary Status: Chronic Qualifiers: Diabetes mellitus complication status: without complication Diabetes mellitus penitentiary insulin use: without penitentiary use Qualified Code(s): E11.9 - Type 2 diabetes mellitus without complications (7) Elevated troponin I level Priority: Secondary Status: Acute (8) TREY (acute kidney injury) Priority: Secondary Status: Acute Hospital course: Ms. Rodarte is a 72 year old female who presented to [facility] with the chief complaint of chest pain. Patient developed chest pain while at her PCPs office during her regular checkup. EKG was performed the patient had ST depression of the lateral leads including V5 V6 aVL and lead 1; new from previous EKG. Known history of afib. Reported that her symptoms started 2 weeks prior to arrival with intermittent CP and associated weakness and fatigue. She was given nitro and ASA. Troponin was elevated, cardiology was consulted. Upon review of records, patient was shown t have chronically elevated troponin. Cardiology opted for medical therapy instead of intervention. Was given Lipitor, Plavix, Lasix, and imdur. Was also given Levaquin 750 mg IV Q48 and Solumedrol 60 mg IV Q8 for SOB associated with COPD exacerbation. Developed TREY in the hospital with a Cr of 1.52. Lasix, home metholazone, and steroids were held. On date of discharge, patients Cr continues to improve at 1.27. Patient was seen and examined at bedside on date of discharge. Reports that she is feeling better. Denies shortness of breath, cough, fever, chills, headache, chest pain. Patient will be discharged on Lasix 40 mg BID, metolazone twice per week, levemir 10U HS and Humalog 3U TID. - Time Spent with Patient Total time spent providing and/or coordinating discharge services: Greater than 30 minutes (42 minutes) - Discharge Medications Home Medications: Apixaban [Eliquis] 5 mg PO BID 08/04/16 [History] Clopidogrel [Plavix] 75 mg PO QAM 08/04/16 [History] Ferrous Sulfate 325 mg PO QAM 08/04/16 [History] Fluticasone/Salmeterol [Advair 500-50 Diskus] 1 puff IH BID 08/04/16 [History] Pantoprazole Sodium [Protonix] 40 mg PO QAM 08/04/16 [History] Pravastatin Sodium [Pravachol] 80 mg PO HS 08/04/16 [History] Oxygen 3 - 5 l NS AD 12/06/16 [History] Acetaminophen/Diphenhydramine [Acetaminophen Pm Caplet] 2 tab PO HS 02/04/17 [ History] Digoxin [Lanoxin] 0.125 mg PO 1200 02/04/17 [History] Sennosides [Senna] 8.6 mg PO DAILY PRN 02/04/17 [History] Ipratropium/Albuterol Neb [Duoneb] 3 ml IH Q6HR 02/27/17 [History] Furosemide [Lasix] 40 mg PO BID 03/13/17 [History] Metoprolol XL (24 HR) Succ [Toprol Xl] 25 mg PO QAM 07/11/17 [History] hydrOXYzine HCl [Hydroxyzine HCl] 25 mg PO Q8H PRN 07/11/17 [History] metFORMIN [Glucophage] 500 mg PO QAM 07/11/17 [History] metOLazone [Zaroxolyn] 2.5 mg PO MOWEFR 07/11/17 [History] Allergies/Adverse Reactions: 3 Allergy/AdvReac Type Severity Reaction Status Date / Time bupropion [From Wellbutrin] Allergy Swelling Verified 04/11/17 12:53 of Lip/Tongue/Throat Sulfa (Sulfonamide Allergy Hives Verified 04/11/17 12:53 Antibiotics) Varenicline [From Chantix] Allergy Swelling Verified 04/11/17 12:53 of Lip/Tongue/Throat Iodinated Contrast- Oral and AdvReac See Verified 04/11/17 12:53 IV Dye Comments [Iodinated Contrast Media - Oral and] lidocaine AdvReac Hives Verified 04/27/17 16:18 tape Allergy Hives Uncoded 04/11/17 12:53 Date of admission: 07/11/17 17:36 Primary care physician: Hal Monroy MD Discharging clinician: Escobar Jo Anticipated date of discharge: 07/15/17 - Constitutional Vitals: Temp Pulse Resp BP Pulse Ox 97.9 F 61 16 116/55 97 07/15/17 07:30 07/15/17 07:30 07/15/17 07:30 07/15/17 07:30 07/15/17 07:30 General appearance: Present: cooperative, mild distress, A&O X 3, pleasant, obese, answers questions appropriately - Head Head exam: Present: atraumatic, normocephalic - Eye Eye exam: Present: PERRL, conjuntiva pink, sclera anicteric Pupils: Present: PERRL - Neck Neck exam general surgery: Present: supple, trachea midline. Absent: lymphadenopathy - Respiratory Respiratory exam: Present: decreased breath sounds. Absent: accessory muscle use, rales, rhonchi, wheezes - Cardiovascular Cardiovascular exam: Present: RRR, +S1, +S2. Absent: diastolic murmur, gallop, rubs, systolic murmur - Extremities Exam Extremities exam: Present: warm, radial pulses palpable and symmetrical. Absent : calf tenderness, cyanotic, pedal edema - Neurological Exam Neurological exam: Present: CN II-XII intact, oriented X3, no focal deficits. Absent: pronater drift, facial droop, speech deficit - Skin Skin exam: Present: dry, intact - Patient Status Disposition: Home, Self-Care Condition: Good Overall status at discharge: patient is progressing back to baseline - Discharge Instructions Follow Up With: Hal Monroy MD [Primary Care Provider] - - Diet and Activity Activity: increase activity as tolerated Diet: advance to your usual diet <Jared Boggs H - Last Filed: 07/15/17 10:58> Orders not resulted at time of discharge: Pending orders 07/12/17 13:02 EKG [ECG 12 lead ECG] [ECG] Routine Date of Encounter: 07/15/17 Hospital course: Ms. Rodarte is a 72 year old female - Time Spent with Patient Total time spent providing and/or coordinating discharge services: Date of admission: 07/11/17 17:36 Primary care physician: Hal Monroy MD - Constitutional Vitals: Temp Pulse Resp BP Pulse Ox 97.9 F 61 16 116/55 97 07/15/17 07:30 07/15/17 07:30 07/15/17 07:30 07/15/17 07:30 07/15/17 07:30 - Attending Attestation Acute chronic renal failure in the setting of chronic kidney disease stage III improved Steroid-induced hyperglycemia, continue Levemir 10 units QHS, Humalog 3 units 3 times a day May resume metformin upon discharge, latest hemoglobin A1c 6.9 Prescribed Potassium 10 meq daily PO I examined this patient and my medical decision-making was reviewed with the Resident Physician. I agree with the documented findings, disposition and treatment plan as described except to the extent set forth below.
[2017-07-15] MEDS: *HR* Digoxin 0.125 MG TABLET PO SCH (13:01)
== END 2017-07-15 13:15 | disposition home or self-care (01) | DRG 280 ==
LOC: EMEROO 11:26 → 3BNU 11:26 → SUATTDRO 17:36
PROVIDERS: ADMIT Registered Nurse; ATTEND Internal Medicine

== ENCOUNTER 2017-09-05 15:35 | Inpatient (IN) ==
--- NOTE | 2017-09-05 15:56 | Emergency Department Note ---
START Narrative - START START: I examined this patient and my medical decision-making was reviewed with the Resident Physician. I agree with the documented findings, disposition and treatment plan as described except to the extent set forth below. 72-year-old female who presented to the emergency room for syncope. She states she felt fine this morning and then started feeling dizziness and then had a syncopal episode. She did catch herself before falling. No head or neck injury. She admits to some difficulty breathing afterwards as well as some upper back pain. She denies any actual chest pain. She has a history of COPD and currently still is a smoker. She does wear home oxygen on an as-needed basis. She denies any headache to me. Her EKG is abnormal with some diffuse ST depressions and some T-wave abnormalities. We will repeat an EKG approximately 10 minutes. Oral check lab work as well as a possible CT of the chest pending her labs.
--- NOTE | 2017-09-05 15:57 | Emergency Department Note ---
Disposition Clinical Impression: Type 2 diabetes mellitus, Chest pain, Acute electrocardiogram changes, Elevated troponin Disposition: Admitted As Inpatient Condition: Fair Referrals: Hal Monroy MD [Primary Care Provider] - Forms: ED Satisfaction Letter General Adult HPI - General Chief complaint: ED Shortness of Breath/Dyspnea Stated complaint: ZOE Time Seen by Provider: 09/05/17 15:42 Source: patient Mode of arrival: wheelchair Limitations: no limitations Nursing Notes Reviewed: Yes Vital Signs Reviewed: Yes - History of Present Illness HPI Narrative: patient presents to the ED with the chief complaint of dyspnea, syncope, back pain. States that she felt ok after she got up this am. family member reports that she was at a doctor's appointment and wasn't there to help her mom like she usually does. Patient states she stood up and then fell but did not hit her head. She was c/o some SOB/upper back pain. She explicitly denies chest pain. She denies any headache or neck pain as well. Does have a history of COPD and is on oxygen. No abdominal pain, nausea, vomiting or diarrhea. Pain Scale: 0 - Related Data Home Medications Medication Instructions Recorded Confirmed Apixaban [Eliquis] 5 mg PO BID 08/04/16 09/05/17 Clopidogrel [Plavix] 75 mg PO QAM 08/04/16 09/05/17 Ferrous Sulfate 325 mg PO QAM 08/04/16 09/05/17 Pantoprazole Sodium [Protonix] 40 mg PO QAM 08/04/16 09/05/17 Oxygen 3 - 5 l NS AD 12/06/16 09/05/17 Digoxin [Lanoxin] 0.125 mg PO MOTUWETH 02/04/17 09/05/17 Sennosides [Senna] 8.6 mg PO DAILY PRN 02/04/17 09/05/17 Ipratropium/Albuterol Neb [Duoneb] 3 ml IH Q6HR 02/27/17 09/05/17 Furosemide [Lasix] 40 mg PO BID 03/13/17 09/05/17 metFORMIN [Glucophage] 500 mg PO QAM 07/11/17 09/05/17 Insulin DETEMIR [Levemir] 35 unit SQ HS 09/05/17 09/05/17 Potassium Chloride [K-Tab ER] 20 meq PO MOTH 09/05/17 09/05/17 Spironolactone [Aldactone] 25 mg PO DAILY 09/05/17 09/05/17 metOLazone [Metolazone] 10 mg PO MOTH 09/05/17 09/05/17 Previous Rx's Medication Instructions Recorded Potassium Chloride 10 meq PO DAILY #30 tab.er.prt 07/15/17 Allergies Allergy/AdvReac Type Severity Reaction Status Date / Time bupropion [From Wellbutrin] Allergy Swelling Verified 09/05/17 17:06 of Lip/Tongue/Throat Sulfa (Sulfonamide Allergy Hives Verified 09/05/17 17:06 Antibiotics) Varenicline [From Chantix] Allergy Swelling Verified 09/05/17 17:06 of Lip/Tongue/Throat Iodinated Contrast- Oral and AdvReac See Verified 09/05/17 17:06 IV Dye Comments [Iodinated Contrast Media - Oral and] lidocaine AdvReac Hives Verified 09/05/17 17:06 tape Allergy Hives Uncoded 04/11/17 12:53 Review of Systems: As reviewed in the HPI. All other systems reviewed are negative or normal. Past Medical History - Past Medical History Attestation: Yes The following information was validated with the patient. Source: patient Medical history: Reports: arthritis, atrial fibrillation, CHF, COPD, coronary artery disease, diabetes, hypertension, myocardial infarction Surgical history: Reports: angioplasty/stent, coronary bypass (CABG), hysterectomy, pacemaker/AICD Psychiatric history: Reports: anxiety, depression - Social History Smoking Status: Current every day smoker Smokeless Tobacco Status: No Alcohol use: Reports: none Drug use: Reports: none Physical Exam - General Limitations: no limitations General appearance: alert, in no apparent distress - Head Head exam: atraumatic, normocephalic, normal inspection - Eye Eye exam: Present: normal appearance, PERRL, EOMI - ENT ENT exam: normal exam, normal oropharynx, mucous membranes moist - Neck Neck exam: Present: normal inspection, full ROM, trachea midline. Absent: tenderness - Chest Chest inspection: Present: normal inspection, symmetric chest wall rise - Respiratory Respiratory exam: Present: respiratory distress (Mild), other (Decreased breath sounds bilaterally). Absent: normal lung sounds bilaterally, wheezes - Cardiovascular Cardiovascular exam: Present: regular rate, normal rhythm, normal heart sounds - Abdominal Exam Abdominal exam: Present: soft, Non-Tender. Absent: tenderness, distention, guarding, rebound, rigidity - Extremities Exam Extremities exam: Present: normal inspection, full ROM. Absent: tenderness, pedal edema - Neurological Exam Neurological exam: Present: alert, oriented X3 - Skin Skin exam: Present: warm, dry, intact, normal color Course Course Narrative: Patient presenting with a syncopal episode, back pain, and dyspnea. She has a history of quadruple bypass in 2011 and subsequent stent a few years later. She is denying any chest pain but is complaining of feeling short of breath and weak all over. Workup initiated. Patient will be admitted. Repeat blood pressure in the room showed a systolic pressure of 113, which was improved from the initial triage blood pressure. - Consultations Consultation #1: Dr. Rubin is down to evaluate the patient. States the EKG is certainly concerning and that he would likely like to proceed with heart catheter. However, the patient has an IV contrast allergy. He did want to wait on lab work, so we are awaiting troponin, and we will start heparin. Time: 16:32 Vital Signs Temperature 98.0 F 09/05/17 15:35 Pulse Rate 86 09/05/17 15:35 Respiratory Rate 18 09/05/17 15:35 Blood Pressure 86/58 09/05/17 15:35 O2 Sat by Pulse Oximetry 97 09/05/17 15:35 Temperature 98.0 F 09/05/17 15:35 Pulse Rate 66 09/05/17 18:12 Respiratory Rate 18 09/05/17 18:12 Blood Pressure 100/67 09/05/17 18:12 O2 Sat by Pulse Oximetry 98 09/05/17 18:12 Oxygen Delivery Oxygen Delivery Nasal Cannula Medical Decision Making - Medical Records Medical records reviewed: Yes I reviewed the patient's medical records. - Lab Data Lab results reviewed: Yes I reviewed the patient's lab results. Result diagrams: 09/05/17 15:43 09/05/17 15:43 Lab Results 09/05/17 09/05/17 09/05/17 Range/Units 15:43 15:43 15:43 WBC 15.5 H (4.3-11.1) K/mcL RBC 5.01 H (3.82-4.97) M/mcL Hgb 14.4 (11.5-15.4) g/dL Hct 42.4 (35.3-44.9) % MCV 84.6 (83.0-100.0) fL MCH 28.7 (28.0-33.3) pg MCHC 34.0 (31.6-35.5) g/dL RDW 15.2 H (11.5-14.5) % Plt Count 281 (140-400) K/mcL MPV 11.2 (9.4-12.4) fL Immature Gran % 0.6 (0-4) % Seg Neutrophils % 76.1 % Lymphocytes % 15.7 % Monocytes % 7.2 % Eosinophils % 0.1 % Basophils % 0.3 % Neutrophils # 11.8 H (1.6-8.9) K/mcL Lymphocytes # 2.4 (0.6-4.6) K/mcL Monocytes # 1.1 (0.0-1.3) K/mcL Eosinophils # 0.0 (0.0-0.6) K/mcL Basophils # 0.0 (0.0-0.2) K/mcL PT (9.4-12.1) Seconds INR APTT (26.0-36.0) Seconds Sodium 137 (136-145) mEq/L Potassium 3.2 L (3.5-5.1) mEq/L Chloride 90 L (98-107) mEq/L Carbon Dioxide 31 H (23-29) mEq/L BUN 58 H (8-23) mg/dL Creatinine 2.14 H (0.60-1.20) mg/dL Est GFR ( Amer) 27 L (> 60) Est GFR (Non-Af Amer) 23 L (> 60) BUN/Creatinine Ratio 27 H (6-26) Glucose 128 H (70-105) mg/dL Calculated Osmolality 302 H (280-300) Lactic Acid (0.5-2.2) mmol/L Calcium 10.0 (8.6-10.3) mg/dL Troponin I 0.10 H* (< 0.04) ng/mL B-Natriuretic Peptide 135 H (Less than 100) pg/mL Urine Color (Yellow) Urine Clarity (Clear) Urine pH (5.0-8.0) pH Units Ur Specific [place] (1.010-1.025) Urine Protein (Neg-Trace) mg/dL Urine Glucose (UA) (Normal) mg/dL Urine Ketones (Negative) mg/dL Urine Blood (Negative) Urine Nitrite (Negative) Urine Bilirubin (Negative) Urine Urobilinogen (Normal) mg/dL Ur Leukocyte Esterase (Negative) Urine Microscopic RBC (0-3) per hpf Urine Microscopic WBC (0-3) per hpf Ur Squamous Epith Cells (None-Few) per lpf Urine Bacteria (None-Few) per hpf Hyaline Casts (None-Few) per lpf Ur Culture Indicated? (NO) Digoxin 1.9 (0.8-2.0) ng/mL 09/05/17 09/05/17 09/05/17 Range/Units 15:54 15:54 16:26 WBC (4.3-11.1) K/mcL RBC (3.82-4.97) M/mcL Hgb (11.5-15.4) g/dL Hct (35.3-44.9) % MCV (83.0-100.0) fL MCH (28.0-33.3) pg MCHC (31.6-35.5) g/dL RDW (11.5-14.5) % Plt Count (140-400) K/mcL MPV (9.4-12.4) fL Immature Gran % (0-4) % Seg Neutrophils % % Lymphocytes % % Monocytes % % Eosinophils % % Basophils % % Neutrophils # (1.6-8.9) K/mcL Lymphocytes # (0.6-4.6) K/mcL Monocytes # (0.0-1.3) K/mcL Eosinophils # (0.0-0.6) K/mcL Basophils # (0.0-0.2) K/mcL PT 19.6 H (9.4-12.1) Seconds INR 1.8 APTT 34.3 (26.0-36.0) Seconds Sodium (136-145) mEq/L Potassium (3.5-5.1) mEq/L Chloride (98-107) mEq/L Carbon Dioxide (23-29) mEq/L BUN (8-23) mg/dL Creatinine (0.60-1.20) mg/dL Est GFR ( Amer) (> 60) Est GFR (Non-Af Amer) (> 60) BUN/Creatinine Ratio (6-26) Glucose (70-105) mg/dL Calculated Osmolality (280-300) Lactic Acid 4.2 H* (0.5-2.2) mmol/L Calcium (8.6-10.3) mg/dL Troponin I (< 0.04) ng/mL B-Natriuretic Peptide (Less than 100) pg/mL Urine Color Yellow (Yellow) Urine Clarity Clear (Clear) Urine pH 6.0 (5.0-8.0) pH Units Ur Specific [place] 1.014 (1.010-1.025) Urine Protein 100 H (Neg-Trace) mg/dL Urine Glucose (UA) Normal (Normal) mg/dL Urine Ketones Negative (Negative) mg/dL Urine Blood Trace H (Negative) Urine Nitrite Negative (Negative) Urine Bilirubin Negative (Negative) Urine Urobilinogen Normal (Normal) mg/dL Ur Leukocyte Esterase Negative (Negative) Urine Microscopic RBC 0-3 (0-3) per hpf Urine Microscopic WBC 0-3 (0-3) per hpf Ur Squamous Epith Cells Many H (None-Few) per lpf Urine Bacteria None Seen (None-Few) per hpf Hyaline Casts None Seen (None-Few) per lpf Ur Culture Indicated? NO (NO) Digoxin (0.8-2.0) ng/mL 09/05/17 Range/Units 17:53 WBC (4.3-11.1) K/mcL RBC (3.82-4.97) M/mcL Hgb (11.5-15.4) g/dL Hct (35.3-44.9) % MCV (83.0-100.0) fL MCH (28.0-33.3) pg MCHC (31.6-35.5) g/dL RDW (11.5-14.5) % Plt Count (140-400) K/mcL MPV (9.4-12.4) fL Immature Gran % (0-4) % Seg Neutrophils % % Lymphocytes % % Monocytes % % Eosinophils % % Basophils % % Neutrophils # (1.6-8.9) K/mcL Lymphocytes # (0.6-4.6) K/mcL Monocytes # (0.0-1.3) K/mcL Eosinophils # (0.0-0.6) K/mcL Basophils # (0.0-0.2) K/mcL PT (9.4-12.1) Seconds INR APTT (26.0-36.0) Seconds Sodium (136-145) mEq/L Potassium (3.5-5.1) mEq/L Chloride (98-107) mEq/L Carbon Dioxide (23-29) mEq/L BUN (8-23) mg/dL Creatinine (0.60-1.20) mg/dL Est GFR ( Amer) (> 60) Est GFR (Non-Af Amer) (> 60) BUN/Creatinine Ratio (6-26) Glucose (70-105) mg/dL Calculated Osmolality (280-300) Lactic Acid 2.1 (0.5-2.2) mmol/L Calcium (8.6-10.3) mg/dL Troponin I (< 0.04) ng/mL B-Natriuretic Peptide (Less than 100) pg/mL Urine Color (Yellow) Urine Clarity (Clear) Urine pH (5.0-8.0) pH Units Ur Specific [place] (1.010-1.025) Urine Protein (Neg-Trace) mg/dL Urine Glucose (UA) (Normal) mg/dL Urine Ketones (Negative) mg/dL Urine Blood (Negative) Urine Nitrite (Negative) Urine Bilirubin (Negative) Urine Urobilinogen (Normal) mg/dL Ur Leukocyte Esterase (Negative) Urine Microscopic RBC (0-3) per hpf Urine Microscopic WBC (0-3) per hpf Ur Squamous Epith Cells (None-Few) per lpf Urine Bacteria (None-Few) per hpf Hyaline Casts (None-Few) per lpf Ur Culture Indicated? (NO) Digoxin (0.8-2.0) ng/mL - Radiology Data Radiology results reviewed: Yes I reviewed the patient's radiology results. - EKG Data EKG #1 EKG attestation: Yes I reviewed and interpreted this EKG. EKG results narrative: Regular rhythm, rate 69, QRS 104, QTC 409, left axis deviation, paced rhythm, patient does have some ST depression as well as some mild ST-T wave changes in aVR and V1. We will repeat an EKG and 10 minutes. Repeat EKG at 1613 shows a regular rhythm, rate 68, QRS 108, QTC 417, is now ST segment elevation in lead V1, V2, V3 with ST segment depression in V4 through V6 , as well as ST depression in lead 2. This is acutely changed and worsened from previous. STEMI alert called at this time. Critical Care Time Critical Care Time: Yes Total Critical Care Time: 30 Attestation: I personally spent ____30__ minutes devoted to the care of this critically ill patient. This time excludes the time for billable procedures.
[2017-09-05 16:09] LABS: Basophils % 0.3 %; Eosinophils % 0.1 %; Hematocrit 42.4 % (35.3-44.9); Hemoglobin 14.4 g/dL (11.5-15.4); Immature Granulocytes % 0.6 % (0-4); Lymphocytes # 2.4 K/mcL (0.6-4.6); Lymphocytes % 15.7 %; Mean Corpuscular Hemoglobin 28.7 pg (28.0-33.3); Mean Corpuscular Volume 84.6 fL (83.0-100.0); Mean Platelet Volume 11.2 fL (9.4-12.4); Monocytes # 1.1 K/mcL (0.0-1.3); Monocytes % 7.2 %; Neutrophils # 11.8 K/mcL (1.6-8.9); Platelet Count 281 K/mcL (140-400); Red Blood Count 5.01 M/mcL (3.82-4.97); Red Cell Distribution Width 15.2 % (11.5-14.5); Segmented Neutrophils % 76.1 %
[2017-09-05] MEDS: 0.9 % Sodium Chloride 1,000 ML IVC ONE ×2 (16:09→19:46)
[2017-09-05] MEDS ORDERED: Heparin 1,000 UNITS/500 mL 500 ML ONE (16:20)
[2017-09-05] MEDS ORDERED: *HR* Heparin 10,000 UNIT/10 ML VIAL ONE (16:20)
[2017-09-05] MEDS ORDERED: 0.9 % Sodium Chloride 1,000 ML ONE ×2 (16:20→16:23)
[2017-09-05] MEDS ORDERED: ISOVUE-370 200 ML INFUS..BTL IV ONE (16:21)
[2017-09-05] MEDS ORDERED: Nitroglycerin 1,000 MCG/10 ML VIAL IV ONE (16:22)
[2017-09-05] MEDS ORDERED: *HR* Ticagrelor 90 MG TABLET ONE (16:23)
[2017-09-05] MEDS ORDERED: Aspirin 81 MG TAB.CHEW ONE (16:23)
[2017-09-05] MEDS ORDERED: *HR* Heparin 5,000 UNIT/ML VIAL ONE (16:23)
[2017-09-05] MEDS ORDERED: *HR* Heparin 5,000 UNIT/ML VIAL IVP ONE (16:31)
[2017-09-05] MEDS ORDERED: Aspirin 325 MG TABLET PO ONE (16:31)
[2017-09-05 16:35] LABS: Potassium 3.2 mEq/L (3.5-5.1)
[2017-09-05] MEDS ORDERED: Aspirin 81 MG TAB.CHEW PO ONE (16:35)
[2017-09-05 16:36] LABS: Bilirubin,Urine Negative (Negative); Blood,Urine Trace (Negative); Clarity,Urine Clear (Clear); Color,Urine Yellow (Yellow); Glucose,Urine (UA) Normal (Normal); Ketones,Urine Negative (Negative); Leukocyte Esterase,Urine Negative (Negative); Nitrite,Urine Negative (Negative); Protein,Urine 100 mg/dL (Neg-Trace); Specific Gravity,Urine 1.014 (1.010-1.025); Urobilinogen,Urine Normal (Normal)
[2017-09-05 16:37] LABS: Bacteria,Urine None Seen per hpf (None-Few); Hyaline Casts,Urine None Seen per lpf (None-Few); Squamous Epithelial Cell,Urine Many per lpf (None-Few); WBC,Urine 0-3 per hpf (0-3)
[2017-09-05 16:37] LABS: Troponin I 0.1 ng/mL (< 0.04)
[2017-09-05 16:48] LABS: INR 1.8; Prothrombin Time 19.6 Seconds (9.4-12.1)
[2017-09-05 16:51] LABS: Activated Partial Thrombo Time 34.3 Seconds (26.0-36.0)
[2017-09-05 16:58] LABS: RBC,Urine 0-3 per hpf (0-3)
[2017-09-05 17:28] LABS: Digoxin 1.9 ng/mL (0.8-2.0)
[2017-09-05] MEDS: Heparin 25,000 UNIT/500 ML D5W 25,000 UNIT/500 ML BAG IVC SCH (19:50)
[2017-09-05] MEDS ORDERED: Naloxone 0.4 MG/ML INJ IVP PRN (21:49)
[2017-09-05] MEDS ORDERED: Ipratropium/Albuterol Neb 3 ML IH PRN (21:56)
[2017-09-05] MEDS ORDERED: Nitroglycerin 0.4 MG TAB.SUBL SL PRN (21:58)
[2017-09-05] MEDS ORDERED: D5% in Water 1,000 ML IVC PRN (22:39)
[2017-09-05] MEDS ORDERED: *HR* Dextrose 50 % in Water (Syg) 50 ML SYRINGE IVP PRN (22:39)
[2017-09-05] MEDS ORDERED: Dextrose Gel 15 GM/37.5 ML TUBE PO PRN ×2 (22:39)
[2017-09-05] MEDS ORDERED: Potassium Chloride 40 MEQ, Lidocaine 1% 2 ML in D5% in Water 500 ML IVPB ONE (22:42)
--- NOTE | 2017-09-05 22:47 | Internal Med History&Physical ---
Date of Encounter: 09/05/17 Time of Encounter: 20:00 Internal Medicine - H&P: HPI Chief complaint: Near syncope Admitted From: Home Plans for Post Hospital Care: Home History of present illness: Ms. Rodarte is a 72 year old female present to ER for near syncope. Past medical history is significant for CAD S/P CABG, hypertension, diabetes, CHF, COPD. Patient said she feel tired and weak for several weeks. Since this morning around 10 AM, she feels dizzy and almost passed out. Patient denies injury. Patient denies chest pain. Patient to have back pain, which is new. Patient has shortness of breath, has mild nausea but no vomiting. Patient has diaphoresis. When I saw patient in the emergency room, her back pain and the nausea has improved. In the emergency room, EKG suspect STEMI. STEMI alert has been called and cardiology saw patient in ER. However, per ER physician, patient denies LHC (I did not see cardiology note yet). Patient was started on heparin drip and admitted for further treatment. Patient was also treated with aspirin and brilinta. I have discussed CODE STATUS with patient. Patient is AAO 3, she clearly told me she does not want CPR or intubation, DNR DNI placed. Past Med Surg Social Fam HX - Past Medical History Medical history: arthritis, atrial fibrillation, CHF, COPD, coronary artery disease, diabetes, hypertension, myocardial infarction Psychiatric history: anxiety, depression - Past Surgical History Surgical History: angioplasty/stent, coronary bypass (CABG), hysterectomy, pacemaker/AICD - Social History Smoking Status: Current every day smoker Smokeless Tobacco Status: No Alcohol use: none Drug use: none - Family History Father Adopted: No Family Member Ethnicity: Non- Living Status: Hx Family Cardiac Disorders: Yes ([place]) Hx Family Respiratory Disorders: No Hx Family Cancer: No Hx Family GI Disorders: No Hx Family Endocrine Disorder: No Hx Family Neuromuscular Disorders: No Hx Family Neurologic Disorders: No Hx Family HEENT Disorders: No Hx Family Autoimmune Disorders: No Mother Family Member Ethnicity: Non- Living Status: Hx Family Cardiac Disorders: Yes (Afib, CAD, HF) Hx Family Endocrine Disorder: Yes (DM) Brother Family Member Ethnicity: Non- Living Status: Sister Family Member Ethnicity: Non- Living Status: Internal Medicine - H&P: Meds Apixaban [Eliquis] 5 mg PO BID 08/04/16 [History] Clopidogrel [Plavix] 75 mg PO QAM 08/04/16 [History] Ferrous Sulfate 325 mg PO QAM 08/04/16 [History] Pantoprazole Sodium [Protonix] 40 mg PO QAM 08/04/16 [History] Oxygen 3 - 5 l NS AD 12/06/16 [History] Digoxin [Lanoxin] 0.125 mg PO MOTUWETH 02/04/17 [History] Sennosides [Senna] 8.6 mg PO DAILY PRN 02/04/17 [History] Ipratropium/Albuterol Neb [Duoneb] 3 ml IH Q6HR 02/27/17 [History] Furosemide [Lasix] 40 mg PO BID 03/13/17 [History] metFORMIN [Glucophage] 500 mg PO QAM 07/11/17 [History] Potassium Chloride 10 meq PO DAILY #30 tab.er.prt 07/15/17 [Rx] Insulin DETEMIR [Levemir] 35 unit SQ HS 09/05/17 [History] Potassium Chloride [K-Tab ER] 20 meq PO MOTH 09/05/17 [History] Spironolactone [Aldactone] 25 mg PO DAILY 09/05/17 [History] metOLazone [Metolazone] 10 mg PO MOTH 09/05/17 [History] 3 Allergy/AdvReac Type Severity Reaction Status Date / Time bupropion [From Wellbutrin] Allergy Swelling Verified 09/05/17 17:06 of Lip/Tongue/Throat Sulfa (Sulfonamide Allergy Hives Verified 09/05/17 17:06 Antibiotics) Varenicline [From Chantix] Allergy Swelling Verified 09/05/17 17:06 of Lip/Tongue/Throat Iodinated Contrast- Oral and AdvReac See Verified 09/05/17 17:06 IV Dye Comments [Iodinated Contrast Media - Oral and] lidocaine AdvReac Hives Verified 09/05/17 17:06 tape Allergy Hives Uncoded 04/11/17 12:53 All Systems PM: A 10-system review of systems was performed and is negative for pertinent findings except as documented above in the HPI. - Constitutional Vitals: Temp Pulse Resp BP Pulse Ox 98.6 F 94 20 125/63 94 09/05/17 22:19 09/05/17 22:19 09/05/17 22:19 09/05/17 22:19 09/05/17 22:19 General appearance: Present: A&O X 3, no acute distress, answers questions appropriately - Head Head exam: Present: atraumatic, normocephalic - Eye Eye exam: Present: PERRL, conjuntiva pink, sclera anicteric Pupils: Present: PERRL - Neck Neck exam general surgery: Present: supple, trachea midline. Absent: lymphadenopathy - Respiratory Respiratory exam: Present: CTAB, wheezes (Scattered wheezing bilaterally). Absent: accessory muscle use, rales, rhonchi - Cardiovascular Cardiovascular exam: Present: RRR, +S1, +S2. Absent: diastolic murmur, gallop, rubs, systolic murmur - GI/Abdominal GI/Abdominal exam: Present: normal bowel sounds, soft, no peritoneal signs. Absent: distended, tenderness - Extremities Exam Extremities exam: Present: warm, radial pulses palpable and symmetrical. Absent : calf tenderness, cyanotic, pedal edema - Neurological Exam Neurological exam: Present: CN II-XII intact, oriented X3, no focal deficits. Absent: pronater drift, facial droop, speech deficit - Skin Skin exam: Present: dry, intact Internal Med - H&P Results - Labs CBC & Chem 7: 09/05/17 15:43 09/05/17 15:43 - Assessment and plan (1) Near syncope Current Visit: Yes Status: Acute Assessment and plan: Patient has near syncope. No loss of consciousness. Denies injury. - Continuous cardiac monitoring to rule out arrhythmia - Echo and duplex carotid - Hold orthostatic vitals as patient has been suspected STEMI. Keep bed rest. - Patient's BP is at lower side, hold BP medications and diuretics. Mild IV fluid as patient is nothing by mouth (2) STEMI (ST elevation myocardial infarction) Current Visit: Yes Status: Acute Assessment and plan: Patient has V1 - V3 ST elevation on EKG. Cardiology on case. Seems patient does not want LHC. - Continue current treatment with heparin drip and antiplatelet. - Follow further cardiology recommendation - Continuous cardiac monitoring - Track 3 sets of troponin to see the trend Qualifiers: Involved coronary artery: unspecified coronary artery Qualified Code(s): I21.3 - ST elevation (STEMI) myocardial infarction of unspecified site (3) DVT prophylaxis Current Visit: No Status: Acute Assessment and plan: Patient is on heparin drip (4) CAD (coronary artery disease) Current Visit: No Status: Chronic Assessment and plan: The management as above. Follow cardiology recommendation Qualifiers: Coronary Disease-Associated Artery/Lesion type: bypass graft [place] vs. transplanted heart: [place] heart Associated angina: with stable angina Qualified Code(s): I25.708 - Atherosclerosis of coronary artery bypass graft(s) , unspecified, with other forms of angina pectoris (5) COPD (chronic obstructive pulmonary disease) Current Visit: No Status: Chronic Assessment and plan: Patient has scattered wheezing. Continue DuoNeb scheduled and when necessary Qualifiers: COPD type: unspecified COPD Qualified Code(s): J44.9 - Chronic obstructive pulmonary disease, unspecified (6) Type 2 diabetes mellitus Current Visit: Yes Status: Chronic Assessment and plan: Place patient on sliding scale insulin coverage Qualifiers: Diabetes mellitus buttermaker continuous churn insulin use: with buttermaker continuous churn use Diabetes mellitus complication status: without complication Qualified Code(s): E11.9 - Type 2 diabetes mellitus without complications; Z79.4 - buttermaker continuous churn (current) use of insulin; Z79.4 - assisted (current) use of insulin; Z79.4 - assisted ( current) use of insulin; Z79.4 - assisted (current) use of insulin (7) CHF (congestive heart failure) Current Visit: Yes Status: Acute Assessment and plan: Patient appears euvolemic at this point. Continue closely monitor patient. Hold diuretics because of low BP. Qualifiers: Heart failure type: systolic Heart failure chronicity: chronic Qualified Code(s): I50.22 - Chronic systolic (congestive) heart failure - Time Spent With Patient Total time spent is greater than 50% in coordination of care (as documented) at patient's floor/unit and/or counseling patient: 40 minutes Greater than 35 minutes
[2017-09-05] MEDS: 0.9 % Sodium Chloride 1,000 ML IVC SCH (23:33)
[2017-09-05] MEDS: Nicotine 21 MG PATCH.TD24 TD SCH (23:36)
[2017-09-06] MEDS: Insulin LISPRO 300 UNITS/3 ML VIAL SQ SCH ×5 (01:32→20:28)
[2017-09-06 02:15] LABS: Basophils % 0.3 %; Eosinophils # 0.1 K/mcL (0.0-0.6); Hematocrit 33.4 % (35.3-44.9); Immature Granulocytes % 0.5 % (0-4); Lymphocytes # 1.9 K/mcL (0.6-4.6); Lymphocytes % 18.7 %; Mean Corpuscular HGB Conc 33.5 g/dL (31.6-35.5); Mean Corpuscular Volume 86.5 fL (83.0-100.0); Mean Platelet Volume 11.9 fL (9.4-12.4); Monocytes # 0.8 K/mcL (0.0-1.3); Monocytes % 7.9 %; Neutrophils # 7.3 K/mcL (1.6-8.9); Platelet Count 209 K/mcL (140-400); Red Blood Count 3.86 M/mcL (3.82-4.97); Red Cell Distribution Width 15.4 % (11.5-14.5); Segmented Neutrophils % 71.6 %
[2017-09-06 02:16] LABS: Hemoglobin 11.2 g/dL (11.5-15.4)
[2017-09-06 02:33] LABS: Calcium 8.1 mg/dL (8.6-10.3); Magnesium 1.7 mg/dL (1.6-2.6); Potassium 2.9 mEq/L (3.5-5.1)
[2017-09-06] MEDS ORDERED: Potassium Chloride 40 MEQ, Lidocaine 1% 2 ML in D5% in Water 500 ML IVPB ONE (03:21)
[2017-09-06] MEDS: Ipratropium/Albuterol Neb 3 ML IH SCH ×4 (03:45→22:07)
[2017-09-06] MEDS: Nicotine 21 MG PATCH.TD24 TD SCH (08:47)
--- NOTE | 2017-09-06 08:53 | Internal Med Progress Note ---
Date of Encounter: 09/06/17 Time of Encounter: 08:30 - Assessment and plan (1) STEMI (ST elevation myocardial infarction) Current Visit: Yes Status: Acute Assessment and plan: Patient has V1 - V3 ST elevation on EKG. Cardiology on case. Patient is amenable to left heart cath - Continue current treatment with heparin drip and antiplatelet. Continue ACS protocol with anticoagulation and antiplatelet. Follow up cardiology recs Qualifiers: Involved coronary artery: unspecified coronary artery Qualified Code(s): I21.3 - ST elevation (STEMI) myocardial infarction of unspecified site (2) CHF (congestive heart failure) Current Visit: Yes Status: Acute Assessment and plan: Patient appears euvolemic at this point. Continue closely monitor patient. Hold diuretics because of low BP. Qualifiers: Heart failure type: systolic Heart failure chronicity: chronic Qualified Code(s): I50.22 - Chronic systolic (congestive) heart failure (3) CAD (coronary artery disease) Current Visit: Yes Status: Chronic Assessment and plan: On aspirin, plavix and full dose anticoagulation. Follow cardiology recommendation Qualifiers: Coronary Disease-Associated Artery/Lesion type: bypass graft [place] vs. transplanted heart: [place] heart Associated angina: with stable angina Qualified Code(s): I25.708 - Atherosclerosis of coronary artery bypass graft(s) , unspecified, with other forms of angina pectoris (4) COPD (chronic obstructive pulmonary disease) Current Visit: No Status: Chronic Assessment and plan: Patient has scattered wheezing. Continue DuoNeb scheduled and when necessary Qualifiers: COPD type: unspecified COPD Qualified Code(s): J44.9 - Chronic obstructive pulmonary disease, unspecified (5) Type 2 diabetes mellitus Current Visit: Yes Status: Chronic Assessment and plan: Place patient on sliding scale insulin coverage Qualifiers: Diabetes mellitus long term care pharmacist insulin use: with senior living use Diabetes mellitus complication status: without complication Qualified Code(s): E11.9 - Type 2 diabetes mellitus without complications; Z79.4 - assisted (current) use of insulin; Z79.4 - assisted (current) use of insulin; Z79.4 - assisted ( current) use of insulin; 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 No loss of consciousness. Denies injury. - Continuous cardiac monitoring to rule out arrhythmia - Echo and duplex carotid. Follow cardiology recs (7) DVT prophylaxis Current Visit: No Status: Acute Assessment and plan: Patient is on heparin drip (8) Atrial fibrillation Current Visit: Yes Status: Acute Assessment and plan: Rate controlled. Apixaban on hold Qualifiers: Atrial fibrillation type: chronic Qualified Code(s): I48.2 - Chronic atrial fibrillation - Time Spent With Patient Total time spent is greater than 50% in coordination of care (as documented) at patient's floor/unit and/or counseling patient: - Subjective Interval history: No acute events overnight - Constitutional Vitals: Temp Pulse Resp BP Pulse Ox 98.0 F 70 18 106/53 100 09/06/17 06:44 09/06/17 06:44 09/06/17 06:44 09/06/17 06:44 09/06/17 06:44 General appearance: Present: A&O X 3, no acute distress, answers questions appropriately - Head Head exam: Present: atraumatic, normocephalic - Eye Eye exam: Present: PERRL, conjuntiva pink, sclera anicteric Pupils: Present: PERRL - Neck Neck exam general surgery: Present: supple, trachea midline. Absent: lymphadenopathy - Respiratory Respiratory exam: Present: CTAB. Absent: accessory muscle use, rales, rhonchi, wheezes - Cardiovascular Cardiovascular exam: Present: RRR, +S1, +S2. Absent: diastolic murmur, gallop, rubs, systolic murmur - GI/Abdominal GI/Abdominal exam: Present: normal bowel sounds, soft, no peritoneal signs. Absent: distended, tenderness - Extremities Exam Extremities exam: Present: warm, radial pulses palpable and symmetrical. Absent : calf tenderness, cyanotic, pedal edema - Neurological Exam Neurological exam: Present: CN II-XII intact, oriented X3, no focal deficits. Absent: pronater drift, facial droop, speech deficit - Skin Skin exam: Present: dry, intact Internal Medicine: Result - Labs CBC & Chem 7: 09/06/17 01:33 09/06/17 08:59 Labs: Short CBC 09/06/17 Range/Units 01:33 WBC 10.3 (4.3-11.1) K/mcL Hgb 11.2 L D (11.5-15.4) g/dL Hct 33.4 L (35.3-44.9) % Plt Count 209 (140-400) K/mcL Neutrophils # 7.3 (1.6-8.9) K/mcL BMP 09/06/17 01:33 Sodium 135 L Potassium 2.9 L Chloride 95 L Carbon Dioxide 30 H BUN 52 H Creatinine 2.17 H Glucose 200 H Calcium 8.1 L Cardiac Enzymes 09/06/17 Range/Units 01:33 Troponin I 0.10 H* (< 0.04) ng/mL - ABG Interpretation ABG results: PT/INR, D-dimer PT 19.6 Seconds (9.4-12.1) H 09/05/17 15:54 Consult Discharge Plan - Plan Referrals: Hal Monroy MD [Primary Care Provider] - 09/14/17 8:45 am
[2017-09-06 09:35] LABS: Calcium 8.4 mg/dL (8.6-10.3); Magnesium 2.6 mg/dL (1.6-2.6); Potassium 3.2 mEq/L (3.5-5.1)
[2017-09-06 09:39] LABS: Troponin I 0.09 ng/mL (< 0.04)
--- NOTE | 2017-09-06 11:03 | Cardiology Consult Note ---
<Elfego Lopez R - Last Filed: 09/06/17 11:31> Date of Encounter: 09/06/17 Time of Encounter: 10:59 Assessment and Plan (1) Acute electrocardiogram changes Current Visit: Yes Status: Acute Cardiology consulted due to ST elevation in leads V1-V3. These are paced beats, not [place], nondiagnostic. Pt denies chest pain. Known CAD with hx CABG and PCI. [facility] 12/2015-Severe three vessel CAD. SVG -LAD occluded proximally, 95% stenosis in the PLAD. SVG-RCA was patent. Jump graft to PDA was occluded. 75% stenosis in the mPDA and RONEL was placed. Troponins flat and adynamic--0.09, 0.10, 0.09, 0.10 in setting of TREY and with hx of chronically elevated troponins. Was given ASA and Brilinta in ED, currently on heparin gtt. Reportedly pt declined C yesterday. Historically has also declined invasive evaluation and is DNR-CCA-DNI. She states she would now be willing if necessary. Since she is not being labeled as a STEMI, no urgent intervention warranted. Continue medical management for now. TTE 04/2017 EF 50%. Recheck TTE. Will discuss and review with Dr. Richie Rebolledo and make changes as necessary. (2) Near syncope Current Visit: Yes Status: Acute Near syncope likely secondary to hypotension, as BP was 86/58 on presentation to ED. Diuretics currently on hold. Continue to monitor. (3) Elevated troponin Current Visit: Yes Status: Chronic Troponin 0.10, 0.09, 0.10, 0.09 in setting of TREY with creatinine as high as 2.17. Baseline creatinine fluctuates between normal and 1.58 historically. EKG reviewed--changes noted, but nondiagnostic on paced beats. Recheck TTE. Last Echo 04/2017 EF 50%. (4) Atrial fibrillation Current Visit: Yes Status: Acute Known hx of chronic A-Fib, home meds included Digoxin and Eliquis, both currently on hold. Failed tikosyn in the past. Currently paced HR 60s. Will not resume digoxin at this time given her TREY. Anticipate resuming once renal function improves. Eliquis on hold since pt is on heparin gtt for suspected STEMI. If no invasive procedures are anticipated, will resume Eliquis. Will discuss with Dr. Richie Rebolledo. Qualifiers: Atrial fibrillation type: chronic Qualified Code(s): I48.2 - Chronic atrial fibrillation (5) TREY (acute kidney injury) Current Visit: Yes Status: Acute Creatinine as high as 2.17. Baseline creatinine fluctuates between normal and 1.58 historically. (6) CAD (coronary artery disease) Current Visit: Yes Status: Chronic Known CAD with hx CABG and PCI. [facility] 12/2015-Severe three vessel CAD. SVG -LAD occluded proximally, 95% stenosis in the PLAD. SVG-RCA was patent. Jump graft to PDA was occluded. 75% stenosis in the mPDA and RONEL was placed. At home was on Plavix and Eliquis, no ASA to avoid triple therapy. Currently on ASA, Plavix, heparin gtt. No BB due to hypotension. Will add statin. Qualifiers: Coronary Disease-Associated Artery/Lesion type: bypass graft [place] vs. transplanted heart: [place] heart Associated angina: with stable angina Qualified Code(s): I25.708 - Atherosclerosis of coronary artery bypass graft(s) , unspecified, with other forms of angina pectoris (7) Dyspnea Current Visit: Yes Status: Acute Presented with worsening dyspnea over past 2-3 weeks. Also hx of COPD, wheezes on exam. BNP 135. CXR did not show any pleural effusions or CHF. Appears euvolemic on exam. Hx of CMP with ICD placement, EF since recovered--was 50% 04/2017. Recheck TTE. Qualifiers: Dyspnea type: unspecified Qualified Code(s): R06.00 - Dyspnea, unspecified Discussion w patient/family: The assessment and plan as outlined above was discussed with the patient and/or family members who expressed understanding and agreement. All questions were answered. Thank you for involving us in the care of your patient. Please call with any questions. I will discuss all the above with Dr. Richie Rebolledo and make changes as necessary. History of Present Illness Consult date: 09/06/17 Requesting physician: Andrés Mota Consult reason: EKG changes concerning for STEMI Chief complaint: Near syncope, dyspnea History of present illness: Ms. Rodarte is a 72 year old female with a past medical history of CAD s/p CABG and previous PCI, afib on eliquis, COPD, HTN, HLD, dementia, and prior CMP with ICD who presented to ED yesterday for near syncope and worsening dyspnea. Hypotensive on presentation--BP 86/58. Pt reports worsening dyspnea over past 2- 3 weeks. She denies chest pain. Denies actual loss of consciousness. EKG obtained and was concerning for STEMI with ST elevation noted in V1-V3 and cardiology consulted for further recs. Of note, pt was seen by registered nurse maternity in ED yesterday, where pt reportedly declined further intervention. This AM, pt is chest pain free, states she would be willing to undergo invasive procedures if necessary. Troponin 0.10, 0.09, 0.10, 0.09--flat and adynamic with hx of chronic troponin elevation and in setting of TREY. Previous cardiac testing. [facility] 12/2015- Severe three vessel CAD. SVG -LAD occluded proximally. There was a 95% stenosis in the PLAD. SVG-RCA was patent. Jump graft to PDA was occluded. There was a 75% stenosis in the mPDA and RONEL was placed. TTE- LVEF 50%. Normal LV chamber size and function. Mild concentric left ventricular hypertrophy. Indeterminate diastolic function. Atypical septal motion consistent with post-operative status. Normal right ventricular structure and function. Severely dilated left atrium. Mild aortic stenosis. Mean gradient 12 mmHg. Mild mitral regurgitation. No evidence of pulmonary hypertension. A device lead was visualized in the right atrium and right ventricle. No obvious vegetations noted. Recommend repeat TTE or consider EL as clinically indicated. Past Med Surg Social Fam HX - Past Medical History Medical history: arthritis, atrial fibrillation, CHF, COPD, coronary artery disease, diabetes, hypertension, myocardial infarction Psychiatric history: anxiety, depression - Past Surgical History Surgical History: angioplasty/stent, coronary bypass (CABG), hysterectomy, pacemaker/AICD - Social History Smoking Status: Current every day smoker Smokeless Tobacco Status: No Alcohol use: none Drug use: none - Family History Father Adopted: No Family Member Ethnicity: Non- Living Status: Hx Family Cardiac Disorders: Yes ([place]) Hx Family Respiratory Disorders: No Hx Family Cancer: No Hx Family GI Disorders: No Hx Family Endocrine Disorder: No Hx Family Neuromuscular Disorders: No Hx Family Neurologic Disorders: No Hx Family HEENT Disorders: No Hx Family Autoimmune Disorders: No Mother Family Member Ethnicity: Non- Living Status: Hx Family Cardiac Disorders: Yes (Afib, CAD, HF) Hx Family Endocrine Disorder: Yes (DM) Brother Family Member Ethnicity: Non- Living Status: Sister Family Member Ethnicity: Non- Living Status: Medications and Allergies Apixaban [Eliquis] 5 mg PO BID 08/04/16 [History] Clopidogrel [Plavix] 75 mg PO QAM 08/04/16 [History] Ferrous Sulfate 325 mg PO QAM 08/04/16 [History] Pantoprazole Sodium [Protonix] 40 mg PO QAM 08/04/16 [History] Oxygen 3 - 5 l NS AD 12/06/16 [History] Digoxin [Lanoxin] 0.125 mg PO MOTUWETH 02/04/17 [History] Sennosides [Senna] 8.6 mg PO DAILY PRN 02/04/17 [History] Ipratropium/Albuterol Neb [Duoneb] 3 ml IH Q6HR 02/27/17 [History] Furosemide [Lasix] 40 mg PO BID 03/13/17 [History] metFORMIN [Glucophage] 500 mg PO QAM 07/11/17 [History] Potassium Chloride 10 meq PO DAILY #30 tab.er.prt 07/15/17 [Rx] Insulin DETEMIR [Levemir] 35 unit SQ HS 09/05/17 [History] Potassium Chloride [K-Tab ER] 20 meq PO MOTH 09/05/17 [History] Spironolactone [Aldactone] 25 mg PO DAILY 09/05/17 [History] metOLazone [Metolazone] 10 mg PO MOTH 09/05/17 [History] 3 Allergy/AdvReac Type Severity Reaction Status Date / Time bupropion [From Wellbutrin] Allergy Swelling Verified 09/05/17 17:06 of Lip/Tongue/Throat Sulfa (Sulfonamide Allergy Hives Verified 09/05/17 17:06 Antibiotics) Varenicline [From Chantix] Allergy Swelling Verified 09/05/17 17:06 of Lip/Tongue/Throat Iodinated Contrast- Oral and AdvReac See Verified 09/05/17 17:06 IV Dye Comments [Iodinated Contrast Media - Oral and] lidocaine AdvReac Hives Verified 09/05/17 17:06 tape Allergy Hives Uncoded 04/11/17 12:53 All Systems Review: The remainder of the systems were reviewed and are negative - Cardiovascular Cardiovascular: as per HPI, dyspnea at rest, dyspnea on exertion, lightheadedness - Respiratory Respiratory: dyspnea - Neurological Neurological: dizziness Physical Examination Vital Signs, Last 4 Hours Resp Pulse Ox 09/06/17 10:52 16 90 Vital Signs Temp Pulse Resp BP Pulse Ox 09/06/17 10:52 16 90 09/06/17 06:44 98.0 F 70 18 106/53 100 09/06/17 04:19 98.2 F 65 18 95/37 96 09/06/17 03:45 20 100 09/06/17 03:00 60 09/06/17 00:42 98.6 F 61 14 91/42 100 09/05/17 22:19 98.6 F 94 20 125/63 94 09/05/17 21:35 60 09/05/17 20:38 16 100/69 09/05/17 19:32 78 16 99/47 98 09/05/17 18:12 66 18 100/67 98 09/05/17 16:38 81 22 100/54 98 09/05/17 15:35 98.0 F 86 18 86/58 97 Intake and Output 09/05/17 09/06/17 09/06/17 23:59 07:59 15:59 Intake Total 1999 634 / 634 110 / 110 Output Total 300 / 300 500 / 500 500 / 500 Balance 1700 / 1700 134 / 134 -390 / -390 Intake: IV Fluids 1999 634 / 634 110 / 110 0.9 % Sodium Chloride 1,000 ML 1999 @ 3750 mls/hr IVC .Q16M ONE Rx# :[id number] Heparin 25,000 UNIT/500 ML D5W 112 / 112 110 / 110 25,000 unit In 500 ml @ 12 UNIT /KG/HR 15.785 mls/hr IVC .Q24H CARLOS Rx#:[id number] KCl 40 MEQ Xylocaine 2 ML In 522 / 522 Dextrose 5% 500 ML @ 130.5 mls/ hr IVPB ONCE ONE Rx#:[id number] Output: Urine 300 / 300 500 / 500 500 / 500 Other: Meal NPO Weight 68.9 kg Blood Glucose* 203 211 General: Conversant HEENT: Atraumatic, Normocephaly, Mucus Membranes Moist Neck: Normal carotid pulses Cardiac: Other (paced, 2/6 murmur) Lungs: Other (Mild wheezes on exam) Neuro: Alert and responsive, No focal deficits noted Abdomen: Soft, Non-Tender Skin: No rashes noted on visualized skin Musculoskeletal: No Chest Wall Tenderness Extremities: No Clubbing, No Cyanosis, No Edema, Normal Pulses Results 09/06/17 01:33 09/06/17 08:59 Lab Results 09/06/17 09/06/17 09/06/17 01:33 01:33 01:33 WBC 10.3 Hgb 11.2 L D Hct 33.4 L Plt Count 209 APTT 43.9 H Sodium Potassium Chloride Carbon Dioxide BUN Creatinine Glucose Calcium Magnesium Troponin I 0.10 H* 09/06/17 09/06/17 09/06/17 01:33 08:59 08:59 WBC Hgb Hct Plt Count APTT 52.2 H Sodium 135 L 136 Potassium 2.9 L 3.2 L Chloride 95 L 99 Carbon Dioxide 30 H 30 H BUN 52 H 46 H Creatinine 2.17 H 1.85 H Glucose 200 H 139 H Calcium 8.1 L 8.4 L Magnesium 1.7 2.6 Troponin I 0.09 H* Short CBC 09/06/17 09/05/17 Range/Units 01:33 15:43 WBC 10.3 15.5 H (4.3-11.1) K/mcL Hgb 11.2 L D 14.4 (11.5-15.4) g/dL Hct 33.4 L 42.4 (35.3-44.9) % Plt Count 209 281 (140-400) K/mcL Neutrophils # 7.3 11.8 H (1.6-8.9) K/mcL BMP 09/06/17 09/06/17 09/05/17 Range/Units 08:59 01:33 15:43 Sodium 136 135 L 137 (136-145) mEq/L Potassium 3.2 L 2.9 L 3.2 L (3.5-5.1) mEq/L Chloride 99 95 L 90 L (98-107) mEq/L Carbon Dioxide 30 H 30 H 31 H (23-29) mEq/L BUN 46 H 52 H 58 H (8-23) mg/dL Creatinine 1.85 H 2.17 H 2.14 H (0.60-1.20) mg/dL Glucose 139 H 200 H 128 H (70-105) mg/dL Calcium 8.4 L 8.1 L 10.0 (8.6-10.3) mg/dL Cardiac Enzymes 09/06/17 09/06/17 09/05/17 Range/Units 08:59 01:33 20:39 Troponin I 0.09 H* 0.10 H* 0.09 H* (< 0.04) ng/mL 09/05/17 Range/Units 15:43 Troponin I 0.10 H* (< 0.04) ng/mL Urine 09/05/17 Range/Units 16:26 Urine Color Yellow (Yellow) Urine Clarity Clear (Clear) Urine pH 6.0 (5.0-8.0) pH Units Ur Specific [place] 1.014 (1.010-1.025) Urine Protein 100 H (Neg-Trace) mg/dL Urine Glucose (UA) Normal (Normal) mg/dL Impressions Chest X-Ray 09/05/17 15:43 IMPRESSION: 1. Cardiomegaly. 2. Calcific atherosclerosis aorta. 3. Senescent pulmonary changes. 4. Status post CABG with fracture of the most inferior median sternotomy wire. D/ / Molina Rascon / Molina Rascon Interpreting Provider: Molina Rascon Cervical Spine CT 09/05/17 16:54 IMPRESSION: No acute abnormality of the cervical spine. D/ / Bill Santana MD / Bill Santana MD Interpreting Provider: Bill Santana MD Thoracic Spine CT 09/05/17 16:54 IMPRESSION: Unremarkable CT of the thoracic spine. D/ / Micha Mercado MD / Micha Mercado MD Interpreting Provider: Micha Mercado MD Head CT 09/05/17 17:34 IMPRESSION: No acute intracranial abnormality. 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 lobe and in the parietal occipital regions bilaterally D/ / Micha Mercado MD / Micha Mercado MD Interpreting Provider: Micha Mercado MD Active Medications Albuterol/Ipratropium (Duoneb) 3 ml IH [id number] PRN PRN Reason: Shortness Of Breath/Wheezing Stop: 03/07/18 21:57 Albuterol/Ipratropium (Duoneb) 3 ml IH [id number] CARLOS Stop: 03/08/18 04:01 Last Admin: 09/06/17 10:51 Dose: 3 ml Aspirin (Aspirin) 81 mg PO DAILY CARLOS Stop: 03/08/18 09:01 Clopidogrel Bisulfate (Plavix) 75 mg PO DAILY CARLOS Stop: 03/08/18 09:01 Dextrose/Water (Dextrose 50% (Syg)) 25 ml IVP AD PRN PRN Reason: Hypoglycemia Stop: 03/07/18 22:40 Glucagon (Glucagen) 1 mg IM ONCE PRN PRN Reason: Hypoglycemia Stop: 03/07/18 22:40 Glucose (Gluctose) 15 gm PO ONCE PRN PRN Reason: Hypoglycemia Stop: 03/07/18 22:40 Glucose (Gluctose) 30 gm PO ONCE PRN PRN Reason: Hypoglycemia Stop: 03/07/18 22:40 Heparin Sodium/Dextrose (Heparin 25,000 Unit/500 Ml D5w) 25,000 unit in 500 mls @ 15.785 mls/hr IVC .Q24H CARLOS; 12 UNIT/KG/HR PRN Reason: Protocol Stop: 03/07/18 16:46 Last Titration: 09/06/17 09:45 Dose: 16 unit/kg/hr, 21.047 mls/hr Sodium Chloride (0.9 % Sodium Chloride) 1,000 mls @ 100 mls/hr IVC .Q10H CARLOS Stop: 09/06/17 17:59 Last Admin: 09/05/17 23:33 Dose: 100 mls/hr Dextrose (Dextrose 5%) 1,000 mls @ 100 mls/hr IVC .Q10H PRN PRN Reason: HYPOGLYCEMIA Stop: 03/07/18 22:40 Insulin Human Lispro (Humalog) 0 units SQ Q6HR CARLOS PRN Reason: Protocol Stop: 03/08/18 00:01 Last Admin: 09/06/17 06:20 Dose: 4 units Naloxone HCl (Narcan) 0.4 mg IVP Q2MIN PRN PRN Reason: SEE COMMENTS Stop: 03/07/18 21:50 Nicotine (Nicoderm) 21 mg TD DAILY CARLOS PRN Reason: Protocol Stop: 03/07/18 22:46 Last Admin: 09/06/17 08:47 Dose: 21 mg Nitroglycerin (Nitroglycerin) 0.4 mg SL Q5MIN PRN PRN Reason: Chest Pain Stop: 03/07/18 21:59 Potassium Chloride (Potassium Chloride) 40 meq PO Q4HR CARLOS Stop: 09/06/17 16:01 - Imaging and Cardiology Echo: report reviewed Cardiac cath: report reviewed - EKG Interpretation EKG results cardiology: personally reviewed (paced), other (12 hr tele AVG HR 63 , paced) Consult Discharge Plan - Plan Referrals: Hal Monroy MD [Primary Care Provider] - 09/14/17 8:45 am <Richie Rebolledo - Last Filed: 09/07/17 11:24> Date of Encounter: 09/07/17 - Attending Attestation I have personally performed a face to face evaluation on this patient. I have reviewed and agree with the care plan. History and Exam by me shows: Known CM, S/P ICD. Admitted with ACS. She prefers medical mgmt. Assessment and Plan Discussion w patient/family: The assessment and plan as outlined above was discussed with the patient and/or family members who expressed understanding and agreement. All questions were answered. Thank you for involving us in the care of your patient. Please call with any questions. History of Present Illness History of present illness: Ms. Rodarte is a 72 year old female All Systems Review: The remainder of the systems were reviewed and are negative Physical Examination Vital Signs, Last 4 Hours Temp Pulse Resp BP Pulse Ox 09/07/17 10:25 18 99 09/07/17 08:01 98.1 F 64 18 119/47 97 Results 09/07/17 04:57 09/07/17 04:57 Lab Results 09/06/17 09/06/17 09/07/17 16:21 21:47 04:57 WBC 8.5 Hgb 10.5 L Hct 32.8 L Plt Count 201 APTT 62.2 H 65.5 H Sodium Potassium Chloride Carbon Dioxide BUN Creatinine Glucose Calcium Magnesium 09/07/17 09/07/17 04:57 04:57 WBC Hgb Hct Plt Count APTT 53.9 H Sodium 138 Potassium 3.4 L Chloride 102 Carbon Dioxide 29 BUN 33 H Creatinine 1.45 H Glucose 132 H Calcium 8.3 L Magnesium 2.2
[2017-09-06] MEDS: Aspirin 81 MG TAB.CHEW PO SCH (11:30)
[2017-09-06] MEDS: Potassium Chloride Elixir 20 MEQ/15 ML UDC PO SCH ×2 (11:30→16:57)
[2017-09-06] MEDS: 0.9 % Sodium Chloride 1,000 ML IVC SCH (11:31)
[2017-09-06] MEDS: Heparin 25,000 UNIT/500 ML D5W 25,000 UNIT/500 ML BAG IVC SCH (23:50)
[2017-09-07] MEDS: Ipratropium/Albuterol Neb 3 ML IH SCH ×4 (04:45→22:55)
[2017-09-07 05:18] LABS: Basophils % 0.4 %; Eosinophils # 0.2 K/mcL (0.0-0.6); Hematocrit 32.8 % (35.3-44.9); Hemoglobin 10.5 g/dL (11.5-15.4); Immature Granulocytes % 0.8 % (0-4); Lymphocytes # 1.8 K/mcL (0.6-4.6); Lymphocytes % 20.8 %; Mean Corpuscular Hemoglobin 28.3 pg (28.0-33.3); Mean Corpuscular Volume 88.4 fL (83.0-100.0); Mean Platelet Volume 11.5 fL (9.4-12.4); Monocytes # 0.8 K/mcL (0.0-1.3); Neutrophils # 5.7 K/mcL (1.6-8.9); Platelet Count 201 K/mcL (140-400); Red Blood Count 3.71 M/mcL (3.82-4.97); Red Cell Distribution Width 15.6 % (11.5-14.5)
[2017-09-07 05:34] LABS: Calcium 8.3 mg/dL (8.6-10.3); Magnesium 2.2 mg/dL (1.6-2.6); Potassium 3.4 mEq/L (3.5-5.1)
[2017-09-07] MEDS: Nicotine 21 MG PATCH.TD24 TD SCH (09:27)
[2017-09-07] MEDS: Aspirin 81 MG TAB.CHEW PO SCH (09:27)
[2017-09-07] MEDS: Insulin LISPRO 300 UNITS/3 ML VIAL SQ SCH ×4 (09:28→21:17)
--- NOTE | 2017-09-07 09:32 | Internal Med Progress Note ---
Date of Encounter: 09/07/17 Time of Encounter: 09:00 - Assessment and plan (1) NSTEMI (non-ST elevated myocardial infarction) Current Visit: Yes Status: Acute Assessment and plan: Patient has V1 - V3 ST elevation on EKG and elevated troponins. Cardiology think ST elevation is likely 2/2 to paced beats. Patient is amenable to left heart cath Continue ACS protocol with anticoagulation and antiplatelet. (2) CHF (congestive heart failure) Current Visit: Yes Status: Acute Assessment and plan: Patient appears euvolemic at this point. Continue closely monitor patient. Hold diuretics because of low BP. Qualifiers: Heart failure type: systolic Heart failure chronicity: chronic Qualified Code(s): I50.22 - Chronic systolic (congestive) heart failure (3) CAD (coronary artery disease) Current Visit: Yes Status: Chronic Assessment and plan: On aspirin, plavix and full dose anticoagulation. Follow cardiology recommendation Qualifiers: Coronary Disease-Associated Artery/Lesion type: bypass graft [place] vs. transplanted heart: [place] heart Associated angina: with stable angina Qualified Code(s): I25.708 - Atherosclerosis of coronary artery bypass graft(s) , unspecified, with other forms of angina pectoris (4) COPD (chronic obstructive pulmonary disease) Current Visit: No Status: Chronic Assessment and plan: Patient has scattered wheezing. Continue DuoNeb scheduled and when necessary Qualifiers: COPD type: unspecified COPD Qualified Code(s): J44.9 - Chronic obstructive pulmonary disease, unspecified (5) Type 2 diabetes mellitus Current Visit: Yes Status: Chronic Assessment and plan: Place patient on sliding scale insulin coverage Qualifiers: Diabetes mellitus long term care social worker insulin use: with long term care social worker use Diabetes mellitus complication status: without complication Qualified Code(s): E11.9 - Type 2 diabetes mellitus without complications; Z79.4 - long-term (current) use of insulin; Z79.4 - assistant terminal manager (current) use of insulin; Z79.4 - long-term ( current) use of insulin; Z79.4 - assistant terminal manager (current) use of insulin (6) Near syncope Current Visit: Yes Status: Acute Assessment and plan: Patient has near syncope. No loss of consciousness. Denies injury. - Continuous cardiac monitoring to rule out arrhythmia - Continue IV fluids. Follow cardiology recs (7) DVT prophylaxis Current Visit: No Status: Acute Assessment and plan: Patient is on heparin drip (8) Atrial fibrillation Current Visit: Yes Status: Acute Assessment and plan: Rate controlled. Apixaban on hold Qualifiers: Atrial fibrillation type: chronic Qualified Code(s): I48.2 - Chronic atrial fibrillation - Time Spent With Patient Total time spent is greater than 50% in coordination of care (as documented) at patient's floor/unit and/or counseling patient: - Subjective Interval history: No acute events overnight - Constitutional Vitals: Temp Pulse Resp BP Pulse Ox 98.1 F 64 18 119/47 97 09/07/17 08:01 09/07/17 08:01 09/07/17 08:01 09/07/17 08:01 09/07/17 08:01 General appearance: Present: A&O X 3, no acute distress, answers questions appropriately - Head Head exam: Present: atraumatic, normocephalic - Eye Eye exam: Present: PERRL, conjuntiva pink, sclera anicteric Pupils: Present: PERRL - Neck Neck exam general surgery: Present: supple, trachea midline. Absent: lymphadenopathy - Respiratory Respiratory exam: Present: CTAB. Absent: accessory muscle use, rales, rhonchi, wheezes - Cardiovascular Cardiovascular exam: Present: RRR, +S1, +S2. Absent: diastolic murmur, gallop, rubs, systolic murmur - GI/Abdominal GI/Abdominal exam: Present: normal bowel sounds, soft, no peritoneal signs. Absent: distended, tenderness - Extremities Exam Extremities exam: Present: warm, radial pulses palpable and symmetrical. Absent : calf tenderness, cyanotic, pedal edema - Neurological Exam Neurological exam: Present: CN II-XII intact, oriented X3, no focal deficits. Absent: pronater drift, facial droop, speech deficit - Skin Skin exam: Present: dry, intact Internal Medicine: Result - Labs CBC & Chem 7: 09/07/17 04:57 09/07/17 04:57 Labs: Short CBC 09/07/17 Range/Units 04:57 WBC 8.5 (4.3-11.1) K/mcL Hgb 10.5 L (11.5-15.4) g/dL Hct 32.8 L (35.3-44.9) % Plt Count 201 (140-400) K/mcL Neutrophils # 5.7 (1.6-8.9) K/mcL BMP 09/06/17 09/07/17 08:59 04:57 Sodium 136 138 Potassium 3.2 L 3.4 L Chloride 99 102 Carbon Dioxide 30 H 29 BUN 46 H 33 H Creatinine 1.85 H 1.45 H Glucose 139 H 132 H Calcium 8.4 L 8.3 L Cardiac Enzymes 09/06/17 Range/Units 08:59 Troponin I 0.09 H* (< 0.04) ng/mL - ABG Interpretation ABG results: PT/INR, D-dimer PT 19.6 Seconds (9.4-12.1) H 09/05/17 15:54 Consult Discharge Plan - Plan Referrals: Hal Monroy MD [Primary Care Provider] - 09/14/17 8:45 am
--- NOTE | 2017-09-07 11:36 | Cardiology Progress Note ---
Date of Encounter: 09/07/17 Time of Encounter: 08:30 Assessment and Plan (1) Acute electrocardiogram changes Current Visit: Yes Status: Acute Per cardiology: -Cardiology consulted due to ST elevation in leads V1-V3. These are paced beats , not bois forte, nondiagnostic. Pt denies chest pain. -Known CAD with hx CABG and PCI. [facility] 12/2015-Severe three vessel CAD. SVG -LAD occluded proximally, 95% stenosis in the PLAD. SVG-RCA was patent. Jump graft to PDA was occluded. 75% stenosis in the mPDA and RONEL was placed. -Troponins flat and adynamic--0.09, 0.10, 0.09, 0.10 in setting of TREY and with hx of chronically elevated troponins. -Was given ASA and Brilinta in ED, currently on heparin gtt. -Reportedly pt declined [facility] yesterday. Historically has also declined invasive evaluation and is DNR-CCA-DNI. She states she would now be willing if necessary. Since she is not being labeled as a STEMI, no urgent intervention warranted. -Continue medical management for now. -TTE 04/2017 EF 50%. Recheck TTE. Will discuss and review with Dr. Richie Rebolledo and make changes as necessary. -Current TTE pending. (2) Elevated troponin Current Visit: Yes Status: Chronic Per cardiology: -Troponin 0.10, 0.09, 0.10, 0.09 in setting of TREY with creatinine as high as 2.17. Baseline creatinine fluctuates between normal and 1.58 historically. -EKG reviewed--changes noted, but nondiagnostic on paced beats. -Recheck TTE. Last Echo 04/2017 EF 50%. -Do not suspect NSTEMI, suspect demand ischemia realted to above. No cardiac rehab warranted. -ANticipate cardiology sign off if no significant changes on TTE. (3) Near syncope Current Visit: Yes Status: Acute Per cardiology: -Near syncope likely secondary to hypotension, as BP was 86/58 on presentation to ED. -Diuretics currently on hold. Continue to monitor. (4) Atrial fibrillation Current Visit: Yes Status: Acute Per cardiology: -Known hx of chronic A-Fib, home meds included Digoxin and Eliquis, both currently on hold. Failed tikosyn in the past. -Currently paced HR 60s. Will not resume digoxin at this time given her TREY. Anticipate resuming once renal function improves. -Eliquis on hold since pt is on heparin gtt for suspected STEMI. If no invasive procedures are anticipated, will resume Eliquis. Will discuss with Dr. Richie Rebolledo. Qualifiers: Atrial fibrillation type: chronic Qualified Code(s): I48.2 - Chronic atrial fibrillation (5) TREY (acute kidney injury) Current Visit: No Status: Acute Per cardiology: -TREY on admisison. -Management per primary service. Discussion w patient/family: The assessment and plan as outlined above was discussed with the patient who expressed understanding and agreement. All questions were answered. Thank you for involving us in the care of your patient. Please call with any questions. Discussed and reviewed with Dr.John Rebolledo Subjective Principal diagnosis: near syncope Interval history: Patient states shortness of breath improved. Denies chest pain. Denies edema. Objective Vital Signs, Last 4 Hours Temp Pulse Resp BP Pulse Ox 09/07/17 10:56 97.7 F 72 17 94/53 100 09/07/17 10:25 18 99 09/07/17 08:01 98.1 F 64 18 119/47 97 General: Conversant, No Apparent Distress HEENT: Atraumatic, Normocephaly, Mucus Membranes Moist Neck: No JVD, Normal carotid pulses Cardiac: Normal S1 and S2, No Murmur, Other (Irregularly irregular) Lungs: Normal Breath Sounds, No Wheeze, Rales, Rhonchi Neuro: Alert and responsive, No focal deficits noted Abdomen: Soft, Non-Tender Skin: No rashes noted on visualized skin Musculoskeletal: No Chest Wall Tenderness Extremities: No Clubbing, No Cyanosis, No Edema, Normal Pulses Results 09/07/17 04:57 09/07/17 04:57 Lab Results Active Medications Albuterol/Ipratropium (Duoneb) 3 ml IH [id number] PRN PRN Reason: Shortness Of Breath/Wheezing Stop: 03/07/18 21:57 Albuterol/Ipratropium (Duoneb) 3 ml IH [id number] [facility] Stop: 03/08/18 04:01 Last Admin: 09/07/17 10:21 Dose: 3 ml Aspirin (Aspirin) 81 mg PO DAILY [facility] Stop: 03/08/18 09:01 Last Admin: 09/07/17 09:27 Dose: 81 mg Atorvastatin Calcium (Lipitor) 40 mg PO HS CARLOS Stop: 03/08/18 21:01 Last Admin: 09/06/17 20:29 Dose: 40 mg Clopidogrel Bisulfate (Plavix) 75 mg PO DAILY [facility] Stop: 03/08/18 09:01 Last Admin: 09/07/17 09:27 Dose: 75 mg Dextrose/Water (Dextrose 50% (Syg)) 25 ml IVP AD PRN PRN Reason: Hypoglycemia Stop: 03/07/18 22:40 Glucagon (Glucagen) 1 mg IM ONCE PRN PRN Reason: Hypoglycemia Stop: 03/07/18 22:40 Glucose (Gluctose) 15 gm PO ONCE PRN PRN Reason: Hypoglycemia Stop: 03/07/18 22:40 Glucose (Gluctose) 30 gm PO ONCE PRN PRN Reason: Hypoglycemia Stop: 03/07/18 22:40 Heparin Sodium/Dextrose (Heparin 25,000 Unit/500 Ml D5w) 25,000 unit in 500 mls @ 15.785 mls/hr IVC .Q24H CARLOS; 12 UNIT/KG/HR PRN Reason: Protocol Stop: 03/07/18 16:46 Last Admin: 09/06/17 23:50 Dose: 16 unit/kg/hr, 21.047 mls/hr Dextrose (Dextrose 5%) 1,000 mls @ 100 mls/hr IVC .Q10H PRN PRN Reason: HYPOGLYCEMIA Stop: 03/07/18 22:40 Insulin Human Lispro (Humalog) 0 units SQ HS CARLOS PRN Reason: Protocol Stop: 03/08/18 21:01 Last Admin: 09/06/17 20:28 Dose: 3 units Insulin Human Lispro (Humalog) 0 units SQ TIDAC CARLOS PRN Reason: Protocol Stop: 03/09/18 07:31 Last Admin: 09/07/17 09:28 Dose: Not Given Naloxone HCl (Narcan) 0.4 mg IVP Q2MIN PRN PRN Reason: SEE COMMENTS Stop: 03/07/18 21:50 Nicotine (Nicoderm) 21 mg TD DAILY CARLOS PRN Reason: Protocol Stop: 03/07/18 22:46 Last Admin: 09/07/17 09:27 Dose: 21 mg Nitroglycerin (Nitroglycerin) 0.4 mg SL Q5MIN PRN PRN Reason: Chest Pain Stop: 03/07/18 21:59 Potassium Chloride (Potassium Chloride) 40 meq PO Q4HR CARLOS Stop: 09/07/17 16:01 Laboratory Tests 09/05/17 09/05/17 09/06/17 15:43 20:39 01:33 Hgb Creatinine Troponin I 0.10 H* 0.09 H* 0.10 H* 09/06/17 09/07/17 09/07/17 08:59 04:57 04:57 Hgb 10.5 L Creatinine 1.45 H Troponin I 0.09 H* - Imaging and Cardiology Chest Xray: report reviewed Echo: pending, report reviewed - EKG Interpretation EKG results cardiology: other (Telemetry reviewed with average HR previous 12 hours noted to be 65, a.fib with intermittent pacing.) Consult Discharge Plan - Plan Referrals: Hal Monroy MD [Primary Care Provider] - 09/14/17 8:45 am
[2017-09-07 12:00] LABS: Thyroid Stimulating Hormone 3.169 mcIU/mL (0.340-5.600)
[2017-09-07] MEDS ORDERED: Potassium Chloride Elixir 20 MEQ/15 ML UDC PO SCH (12:00)
[2017-09-08] MEDS: Heparin 25,000 UNIT/500 ML D5W 25,000 UNIT/500 ML BAG IVC SCH (00:25)
[2017-09-08 02:34] LABS: Basophils % 0.3 %; Eosinophils # 0.3 K/mcL (0.0-0.6); Eosinophils % 2.3 %; Hematocrit 30.5 % (35.3-44.9); Hemoglobin 10.1 g/dL (11.5-15.4); Immature Granulocytes % 0.5 % (0-4); Lymphocytes # 2.1 K/mcL (0.6-4.6); Lymphocytes % 18.7 %; Mean Corpuscular HGB Conc 33.1 g/dL (31.6-35.5); Mean Corpuscular Hemoglobin 29.2 pg (28.0-33.3); Mean Corpuscular Volume 88.2 fL (83.0-100.0); Mean Platelet Volume 11.2 fL (9.4-12.4); Neutrophils # 7.7 K/mcL (1.6-8.9); Platelet Count 195 K/mcL (140-400); Red Blood Count 3.46 M/mcL (3.82-4.97); Red Cell Distribution Width 15.6 % (11.5-14.5); Segmented Neutrophils % 69.2 %
[2017-09-08 02:54] LABS: Calcium 8.8 mg/dL (8.6-10.3); Magnesium 1.9 mg/dL (1.6-2.6); Phosphorous 3.8 mg/dL (2.7-4.5); Potassium 3.8 mEq/L (3.5-5.1)
[2017-09-08] MEDS: Ipratropium/Albuterol Neb 3 ML IH SCH (03:13)
--- NOTE | 2017-09-08 07:14 | Discharge Summary ---
- NOTES TO OUTPATIENT PROVIDER Notes to Outpatient Provider: follow up with cardiology outpatient Orders not resulted at time of discharge: Pending orders 09/08/17 08:30 PTT [Activated Partial Thrombo Time] [COAG] Timed 09/09/17 04:00 Basic Metabolic Panel AM 0400 (Cancelled) CBC [Complete Blood Count] [HEME] AM 0400 (Cancelled) Magnesium AM 0400 (Cancelled) Phosphorous AM 0400 (Cancelled) 09/10/17 04:00 Basic Metabolic Panel AM 0400 (Cancelled) CBC [Complete Blood Count] [HEME] AM 0400 (Cancelled) Magnesium AM 0400 (Cancelled) Phosphorous AM 0400 (Cancelled) 09/11/17 04:00 Basic Metabolic Panel AM 0400 (Cancelled) CBC [Complete Blood Count] [HEME] AM 0400 (Cancelled) Magnesium AM 0400 (Cancelled) Phosphorous AM 0400 (Cancelled) 09/12/17 04:00 Basic Metabolic Panel AM 0400 (Cancelled) CBC [Complete Blood Count] [HEME] AM 0400 (Cancelled) Magnesium AM 0400 (Cancelled) Phosphorous AM 0400 (Cancelled) Date of Encounter: 09/08/17 Time of Encounter: 07:00 - Discharge Diagnosis (1) NSTEMI (non-ST elevated myocardial infarction) Priority: Primary Status: Acute Assessment and Plan: Patient has V1 - V3 ST elevation on EKG and elevated troponins. Cardiology think ST elevation is likely 2/2 to paced beats. Patient is amenable to left heart cath Pt was on ACS protocol and had 2D echo done. Echo showed no acute changes from the last echocardiogram. Cardiology signed off and recommend outpatient follow up (2) CHF (congestive heart failure) Priority: Secondary Status: Acute Assessment and Plan: Patient appears euvolemic at this point. Continue closely monitor patient. Hold diuretics because of low BP.Pt was euvolemic for her hospital course Qualifiers: Heart failure type: systolic Heart failure chronicity: chronic Qualified Code(s): I50.22 - Chronic systolic (congestive) heart failure (3) CAD (coronary artery disease) Priority: Secondary Status: Chronic Assessment and Plan: On aspirin, plavix and full dose anticoagulation. D/C therapeutic anticoagulation. Outpatient follow up Qualifiers: Coronary Disease-Associated Artery/Lesion type: bypass graft [place] vs. transplanted heart: [place] heart Associated angina: with stable angina Qualified Code(s): I25.708 - Atherosclerosis of coronary artery bypass graft(s) , unspecified, with other forms of angina pectoris (4) COPD (chronic obstructive pulmonary disease) Priority: Secondary Status: Chronic Assessment and Plan: Patient has scattered wheezing. Continue DuoNeb scheduled and when necessary Qualifiers: COPD type: unspecified COPD Qualified Code(s): J44.9 - Chronic obstructive pulmonary disease, unspecified (5) Type 2 diabetes mellitus Priority: Secondary Status: Chronic Assessment and Plan: Place patient on sliding scale insulin coverage Qualifiers: Diabetes mellitus skilled nursing insulin use: with healthcare market consultant use Diabetes mellitus complication status: without complication Qualified Code(s): E11.9 - Type 2 diabetes mellitus without complications; Z79.4 - terminal clerk (current) use of insulin; Z79.4 - terminal clerk (current) use of insulin; Z79.4 - terminal clerk ( current) use of insulin; Z79.4 - terminal clerk (current) use of insulin (6) Near syncope Priority: Secondary Status: Acute Assessment and Plan: Patient has near syncope. No loss of consciousness. Denies injury. - Continuous cardiac monitoring to rule out arrhythmia - Continue IV fluids. Follow cardiology recs. Resolved (7) DVT prophylaxis Priority: Secondary Status: Acute Assessment and Plan: D/c heparin drip and resume apixaban (8) Atrial fibrillation Priority: Secondary Status: Acute Assessment and Plan: Rate controlled. REsume apixaban on discharge Qualifiers: Atrial fibrillation type: chronic Qualified Code(s): I48.2 - Chronic atrial fibrillation Hospital course: Ms. Rodarte is a 72 year old female - Time Spent with Patient Total time spent providing and/or coordinating discharge services: - Discharge Medications Home Medications: Apixaban [Eliquis] 5 mg PO BID 08/04/16 [History] Clopidogrel [Plavix] 75 mg PO QAM 08/04/16 [History] Ferrous Sulfate 325 mg PO QAM 08/04/16 [History] Pantoprazole Sodium [Protonix] 40 mg PO QAM 08/04/16 [History] Oxygen 3 - 5 l NS AD 12/06/16 [History] Digoxin [Lanoxin] 0.125 mg PO MOTUWETH 02/04/17 [History] Sennosides [Senna] 8.6 mg PO DAILY PRN 02/04/17 [History] Ipratropium/Albuterol Neb [Duoneb] 3 ml IH Q6HR 02/27/17 [History] Furosemide [Lasix] 40 mg PO BID 03/13/17 [History] metFORMIN [Glucophage] 500 mg PO QAM 07/11/17 [History] Potassium Chloride 10 meq PO DAILY #30 tab.er.prt 07/15/17 [Rx] Insulin DETEMIR [Levemir] 35 unit SQ HS 09/05/17 [History] Potassium Chloride [K-Tab ER] 20 meq PO MOTH 09/05/17 [History] Spironolactone [Aldactone] 25 mg PO DAILY 09/05/17 [History] metOLazone [Metolazone] 10 mg PO MOTH 09/05/17 [History] Allergies/Adverse Reactions: 3 Allergy/AdvReac Type Severity Reaction Status Date / Time bupropion [From Wellbutrin] Allergy Swelling Verified 09/05/17 17:06 of Lip/Tongue/Throat Sulfa (Sulfonamide Allergy Hives Verified 09/05/17 17:06 Antibiotics) Varenicline [From Chantix] Allergy Swelling Verified 09/05/17 17:06 of Lip/Tongue/Throat Iodinated Contrast- Oral and AdvReac See Verified 09/05/17 17:06 IV Dye Comments [Iodinated Contrast Media - Oral and] lidocaine AdvReac Hives Verified 09/05/17 17:06 tape Allergy Hives Uncoded 04/11/17 12:53 Date of admission: 09/05/17 21:49 Primary care physician: Hal Monroy MD Consults: 09/05/17 21:54 Consult to Cardiology [CONS] Stat Comment: Consulting Provider: Cardiology [place] Reason for Consult: Cardiology called by ER and saw pt already. Call Completed: Yes - Constitutional Vitals: Temp Pulse Resp BP Pulse Ox 98.4 F 69 18 90/64 100 09/08/17 03:01 09/08/17 03:01 09/08/17 03:13 09/08/17 03:01 09/08/17 03:13 General appearance: Present: A&O X 3, no acute distress, answers questions appropriately - Patient Status Disposition: Home Health Service Condition: Fair - Discharge Instructions Follow Up With: Hal Monroy MD [Primary Care Provider] - 09/14/17 8:45 am
[2017-09-08] MEDS: Nicotine 21 MG PATCH.TD24 TD SCH (07:39)
[2017-09-08] MEDS: Aspirin 81 MG TAB.CHEW PO SCH (07:39)
[2017-09-08] MEDS: Insulin LISPRO 300 UNITS/3 ML VIAL SQ SCH (07:40)
[2017-09-08 07:48] VITALS: BP 95/78
--- NOTE | 2017-09-08 07:59 | Physician Discharge Referral ---
Home Health/Hosp Referral Info Transfer to: Home Health - Diagnosis (1) NSTEMI (non-ST elevated myocardial infarction) Status: Acute (2) CHF (congestive heart failure) Status: Acute (3) CAD (coronary artery disease) Status: Chronic (4) COPD (chronic obstructive pulmonary disease) Status: Chronic (5) Type 2 diabetes mellitus Status: Chronic (6) Near syncope Status: Acute (7) DVT prophylaxis Status: Acute (8) Atrial fibrillation Status: Acute - Respiratory Orders Smoking Cessation: Smoking cessation has been advised. For more information, call the [place] Tobacco Quit Line at 3-692-DQTK-NOW. - Diet/Nutrition Diet/Nutrition Orders: Cardiac - Activity Activity Orders: Ambulate - Services Needed Following services are medically necessary services: Nursing, Home Health Aide, Physical Therapy - Transfer Medications Home Medications: Apixaban [Eliquis] 5 mg PO BID 08/04/16 [History] Clopidogrel [Plavix] 75 mg PO QAM 08/04/16 [History] Ferrous Sulfate 325 mg PO QAM 08/04/16 [History] Pantoprazole Sodium [Protonix] 40 mg PO QAM 08/04/16 [History] Oxygen 3 - 5 l NS AD 12/06/16 [History] Digoxin [Lanoxin] 0.125 mg PO MOTUWETH 02/04/17 [History] Sennosides [Senna] 8.6 mg PO DAILY PRN 02/04/17 [History] Ipratropium/Albuterol Neb [Duoneb] 3 ml IH Q6HR 02/27/17 [History] Furosemide [Lasix] 40 mg PO BID 03/13/17 [History] metFORMIN [Glucophage] 500 mg PO QAM 07/11/17 [History] Potassium Chloride 10 meq PO DAILY #30 tab.er.prt 07/15/17 [Rx] Insulin DETEMIR [Levemir] 35 unit SQ HS 09/05/17 [History] Potassium Chloride [K-Tab ER] 20 meq PO MOTH 09/05/17 [History] Spironolactone [Aldactone] 25 mg PO DAILY 09/05/17 [History] metOLazone [Metolazone] 10 mg PO MOTH 09/05/17 [History] Allergies/Adverse Reactions: 3 Allergy/AdvReac Type Severity Reaction Status Date / Time bupropion [From Wellbutrin] Allergy Swelling Verified 09/05/17 17:06 of Lip/Tongue/Throat Sulfa (Sulfonamide Allergy Hives Verified 09/05/17 17:06 Antibiotics) Varenicline [From Chantix] Allergy Swelling Verified 09/05/17 17:06 of Lip/Tongue/Throat Iodinated Contrast- Oral and AdvReac See Verified 09/05/17 17:06 IV Dye Comments [Iodinated Contrast Media - Oral and] lidocaine AdvReac Hives Verified 09/05/17 17:06 tape Allergy Hives Uncoded 04/11/17 12:53 Certification: Further, I certify that my clinical findings support that this patient is homebound (i.e. absences from home require considerable and taxing effort and are for medical reasons or rastafarian services or infrequently or short duration when for other reasons) because: Homebound Reason: Patient requires assistance of a person or device to safely leave home Attestation: My signature below is to certify that this patient is under my care and that I, or nurse practitioner, or a physician's executive chef assistant working with me, has a face-to -face encounter with this patient.
--- NOTE | 2017-09-08 16:52 | Electrocardiograph Report ---
[place] [id number] Test Date: 2017-09-06 Pat Name: Juan Rodarte Department: 110 Room: 2N02 Gender: F Delivery Consultant: : 1945 Requested By: Andrés Mota Order Number: [id number] Reading MD: Tana Rebolledo Measurements Intervals [place] Rate: 61 P: SD: 0 QRS: -65 QRSD: 181 T: 60 QT: 428 QTc: 430 Interpretive Statements ELECTRONIC VENTRICULAR PACEMAKER ABNORMAL RHYTHM ECG Electronically Signed On 09-08-2017 16:50:46 EDT by Tana Rebolledo
--- NOTE | 2017-09-10 10:35 | Electrocardiograph Report ---
[place] [id number] Test Date: 2017-09-05 Pat Name: Juan Rodarte Department: 102 Room: 2N02 Gender: F Cemetery Manager: : 1945 Requested By: [id number] Order Number: [id number] Reading MD: Marguerite Sun Measurements Intervals [place] Rate: 68 P: GA: 0 QRS: -33 QRSD: 108 T: 90 QT: 400 QTc: 417 Interpretive Statements ATRIAL FIBRILLATION ELECTRONIC VENTRICULAR PACEMAKER NONSPECIFIC ST ABNORMALITIES Electronically Signed On 09-10-2017 10:34:09 EDT by Marguerite Sun
== END 2017-09-08 10:27 | disposition home health service (06) | DRG 281 ==
LOC: 2NNU 15:35 → EMEROO 15:35 → 2NNU 21:32
PROVIDERS: ADMIT Internal Medicine; ATTEND Internal Medicine Cardiovascular Disease

== ENCOUNTER 2017-10-11 17:50 | Observation (INO) ==
--- NOTE | 2017-10-11 18:48 | Emergency Department Note ---
START Narrative - START START: Patient was sent in by her primary care physician due to abnormal labs. She was not sure what it was or why she had labs drawn. It looks like maybe her creatinine is more elevated than usual. We will go and start fluids on her labs were just drawn today and a urinalysis and will sign her out to the evening ER physician for management and disposition.
[2017-10-11 19:30] LABS: Bilirubin,Urine Negative (Negative); Blood,Urine Negative (Negative); Clarity,Urine Clear (Clear); Color,Urine Yellow (Yellow); Glucose,Urine (UA) Normal (Normal); Ketones,Urine Negative (Negative); Leukocyte Esterase,Urine Negative (Negative); Nitrite,Urine Negative (Negative); PH,Urine 6.5 pH Units (5.0-8.0); Protein,Urine Trace mg/dL (Neg-Trace); Specific Gravity,Urine 1.009 (1.010-1.025); Urobilinogen,Urine Normal (Normal)
[2017-10-11 19:31] LABS: Squamous Epithelial Cell,Urine Moderate per lpf (None-Few); WBC,Urine 0-3 per hpf (0-3)
[2017-10-11 19:32] LABS: Bacteria,Urine None Seen per hpf (None-Few); Hyaline Casts,Urine None Seen per lpf (None-Few)
[2017-10-11] MEDS ORDERED: 0.9 % Sodium Chloride 500 ML IVC ONE (19:46)
[2017-10-11] MEDS ORDERED: Ipratropium/Albuterol Neb 3 ML IH ONE ×2 (19:48→19:49)
[2017-10-11 20:04] LABS: Basophils # 0.1 K/mcL (0.0-0.2); Basophils % 0.3 %; Eosinophils # 0.1 K/mcL (0.0-0.6); Eosinophils % 0.5 %; Hematocrit 36.3 % (35.3-44.9); Hemoglobin 12.7 g/dL (11.5-15.4); Immature Granulocytes % 0.9 % (0-4); Lymphocytes # 2.1 K/mcL (0.6-4.6); Mean Corpuscular Hemoglobin 30.5 pg (28.0-33.3); Mean Corpuscular Volume 87.1 fL (83.0-100.0); Mean Platelet Volume 11.1 fL (9.4-12.4); Monocytes % 5.6 %; Neutrophils # 14.4 K/mcL (1.6-8.9); Platelet Count 314 K/mcL (140-400); Red Blood Count 4.17 M/mcL (3.82-4.97); Red Cell Distribution Width 14.3 % (11.5-14.5); Segmented Neutrophils % 80.7 %
--- NOTE | 2017-10-11 20:31 | Emergency Department Note ---
Disposition Clinical Impression: CKD (chronic kidney disease), Chest pain, TREY (acute kidney injury), Elevated troponin I level Atrial fibrillation Qualifiers: Atrial fibrillation type: chronic Qualified Code(s): I48.2 - Chronic atrial fibrillation Disposition: Admitted As Inpatient Condition: Good Time of Disposition: 20:40 Recheck wound or abnormal lab - General Chief Complaint: ED Recheck/Abnormal Lab/Rx Stated Complaint: abnormal labs Time Seen by Provider: 10/11/17 18:47 Source: patient Mode of arrival: ambulatory Limitations: no limitations Nursing Notes Reviewed: Yes Vital Signs Reviewed: Yes - History of Present Illness HPI Narrative: Patient presenting to the ED from the cardiology office for admission for TREY, hypokalemia and medication adjustment. Patient has a history of A. fib, diabetes, coronary artery disease, and CKD. She saw her administrative law judge today and was told that she needed to come to the ER to be admitted for an TREY, hypokalemia and "medication adjustment." They state that her A. fib has been "out of whack" recently. During review of systems patient does state that she has been having some chest pain off and on since yesterday. States that her chronic chest pain, nothing different than usual. Also complaining of feeling weak and fatigued. No cough or shortness of breath above baseline. No dysuria. No abdominal pain. - Related Data Home Medications Medication Instructions Recorded Confirmed Apixaban [Eliquis] 5 mg PO BID 08/04/16 10/11/17 Clopidogrel [Plavix] 75 mg PO QAM 08/04/16 10/11/17 Ferrous Sulfate 325 mg PO QAM 08/04/16 10/11/17 Pantoprazole Sodium [Protonix] 40 mg PO QAM 08/04/16 10/11/17 Oxygen 3 - 5 l NS AD 12/06/16 10/11/17 Digoxin [Lanoxin] 0.125 mg PO MOTUWETH 02/04/17 10/11/17 Sennosides [Senna] 8.6 mg PO DAILY PRN 02/04/17 10/11/17 Ipratropium/Albuterol Neb [Duoneb] 3 ml IH Q6HR 02/27/17 10/11/17 Furosemide [Lasix] 40 mg PO BID 03/13/17 10/11/17 metFORMIN [Glucophage] 500 mg PO QAM 07/11/17 10/11/17 Insulin DETEMIR [Levemir] 38 unit SQ HS 09/05/17 10/11/17 Potassium Chloride [K-Tab ER] 20 meq PO MOTH 09/05/17 10/11/17 Spironolactone [Aldactone] 25 mg PO DAILY 09/05/17 10/11/17 metOLazone [Metolazone] 10 mg PO MOTH 09/05/17 10/11/17 Previous Rx's Medication Instructions Recorded Potassium Chloride 10 meq PO DAILY #30 tab.er.prt 07/15/17 Allergies Allergy/AdvReac Type Severity Reaction Status Date / Time bupropion [From Wellbutrin] Allergy Swelling Verified 09/05/17 17:06 of Lip/Tongue/Throat Sulfa (Sulfonamide Allergy Hives Verified 09/05/17 17:06 Antibiotics) Varenicline [From Chantix] Allergy Swelling Verified 09/05/17 17:06 of Lip/Tongue/Throat Iodinated Contrast- Oral and AdvReac See Verified 09/05/17 17:06 IV Dye Comments [Iodinated Contrast Media - Oral and] lidocaine AdvReac Hives Verified 09/05/17 17:06 tape Allergy Hives Uncoded 04/11/17 12:53 Review of Systems: As reviewed in the HPI. All other systems reviewed are negative or normal. Past Medical History - Past Medical History Attestation: Yes The following information was validated with the patient. Source: patient Medical history: Reports: arthritis, atrial fibrillation, CHF, COPD, coronary artery disease, diabetes, hypertension, myocardial infarction Surgical history: Reports: angioplasty/stent, coronary bypass (CABG), hysterectomy, pacemaker/AICD Psychiatric history: Reports: anxiety, depression - Social History Smoking Status: Current every day smoker Smokeless Tobacco Status: No Alcohol use: Reports: none Drug use: Reports: none Physical Exam - General Limitations: no limitations General appearance: alert, in no apparent distress - Head Head exam: atraumatic, normocephalic, normal inspection - Eye Eye exam: Present: normal appearance, PERRL, EOMI - ENT ENT exam: normal exam, normal oropharynx, mucous membranes moist - Chest Chest inspection: Present: normal inspection, symmetric chest wall rise - Respiratory Respiratory exam: Present: normal lung sounds bilaterally. Absent: respiratory distress - Cardiovascular Cardiovascular exam: Present: regular rate, irregular rhythm - Abdominal Exam Abdominal exam: Present: soft, Non-Tender. Absent: tenderness, distention, guarding, rebound, rigidity - Extremities Exam Extremities exam: Present: normal inspection, full ROM, normal capillary refill. Absent: tenderness, pedal edema - Neurological Exam Neurological exam: Present: alert, oriented X3 - Psychiatric Psychiatric exam: Present: flat affect - Skin Skin exam: Present: warm, dry, intact, normal color Course Course Narrative: Patient presenting to the ED for admission from cardiology. We will add on a CBC and a troponin due to her chest pain and to complete her admission labs. EKG shows several PVCs and she is supposed to be paced. - Reevaluation(s) Reevaluation #1: troponin is chronically elevated. will admit her to hospitalist service. Vital Signs Temperature 99.0 F 10/11/17 17:51 Pulse Rate 80 10/11/17 17:51 Respiratory Rate 18 10/11/17 17:51 Blood Pressure 107/68 10/11/17 17:51 O2 Sat by Pulse Oximetry 93 10/11/17 17:51 Temperature 97.7 F 10/11/17 22:14 Pulse Rate 75 10/11/17 22:14 Respiratory Rate 14 10/11/17 22:14 Blood Pressure 95/58 10/11/17 22:14 O2 Sat by Pulse Oximetry 93 10/11/17 22:14 Oxygen Delivery Oxygen Delivery Nasal Cannula Recheck wound or abnormal lab - Medical Records Medical records reviewed: Yes I reviewed the patient's medical records. - Lab Data Lab results reviewed: Yes I reviewed the patient's lab results. Result diagrams: 10/11/17 19:36 Lab Results 10/11/17 10/11/17 10/11/17 Range/Units 19:20 19:36 19:36 WBC 17.8 H (4.3-11.1) K/mcL RBC 4.17 (3.82-4.97) M/mcL Hgb 12.7 (11.5-15.4) g/dL Hct 36.3 (35.3-44.9) % MCV 87.1 (83.0-100.0) fL MCH 30.5 (28.0-33.3) pg MCHC 35.0 (31.6-35.5) g/dL RDW 14.3 (11.5-14.5) % Plt Count 314 (140-400) K/mcL MPV 11.1 (9.4-12.4) fL Immature Gran % 0.9 (0-4) % Seg Neutrophils % 80.7 % Lymphocytes % 12.0 % Monocytes % 5.6 % Eosinophils % 0.5 % Basophils % 0.3 % Neutrophils # 14.4 H (1.6-8.9) K/mcL Lymphocytes # 2.1 (0.6-4.6) K/mcL Monocytes # 1.0 (0.0-1.3) K/mcL Eosinophils # 0.1 (0.0-0.6) K/mcL Basophils # 0.1 (0.0-0.2) K/mcL Troponin I 0.10 H* (< 0.04) ng/mL Urine Color Yellow (Yellow) Urine Clarity Clear (Clear) Urine pH 6.5 (5.0-8.0) pH Units Ur Specific [place] 1.009 L (1.010-1.025) Urine Protein Trace (Neg-Trace) mg/dL Urine Glucose (UA) Normal (Normal) mg/dL Urine Ketones Negative (Negative) mg/dL Urine Blood Negative (Negative) Urine Nitrite Negative (Negative) Urine Bilirubin Negative (Negative) Urine Urobilinogen Normal (Normal) mg/dL Ur Leukocyte Esterase Negative (Negative) Urine Microscopic RBC 5-15 H (0-3) per hpf Urine Microscopic WBC 0-3 (0-3) per hpf Ur Squamous Epith Cells Moderate H (None-Few) per lpf Urine Bacteria None Seen (None-Few) per hpf Hyaline Casts None Seen (None-Few) per lpf Ur Culture Indicated? NO (NO) - EKG Data EKG attestation: Yes I reviewed and interpreted this EKG. EKG results narrative: Patient rhythm, rate 71, here is 157, QTC 453, multifocal PVCs, no acute ischemic changes Attestation Statement - Attestation Attestation: I examined this patient and my medical decision-making was reviewed with the Resident Physician. I agree with the documented findings, disposition and treatment plan as described except to the extent set forth below.
--- NOTE | 2017-10-11 21:54 | Internal Med History&Physical ---
Date of Encounter: 10/11/17 Time of Encounter: 20:45 Internal Medicine - H&P: HPI Chief complaint: Patient sent to ER for abnormal labs by her chopped strand operator Admitted From: Emergency Dept Plans for Post Hospital Care: Home History of present illness: Ms. Rodarte is a 72 year old female patient with a history of coronary artery disease status post CABG with mild chronic elevation of troponins, hypertension , diabetes, CHF, COPD who presented to the ER after she was asked to come in by her chopped strand operator. She was found to have abnormal renal function and so advised to come to the ER. She denies any chest pain but does report some shortness of breath. She does use home oxygen but only at bedtime with her CPAP. She denies any fevers or chills. No palpitations. She reported nausea and chronic back pain. Denies any dysuria or hematuria. No fever or chills recently. Has not had any trouble passing urine but does not have some episodes of incontinence intermittently. She is on Lasix, spironolactone and also takes metolazone twice weekly. She does report cough which has worsened recently almost to the point of gagging intermittently. She also reports having cough while trying to swallow ice chips. Past Med Surg Social Fam HX - Past Medical History Attestation: Yes The following information was validated with the patient. Source: patient, old records reviewed Medical history: arthritis, atrial fibrillation, CHF, COPD, coronary artery disease, diabetes, hypertension, myocardial infarction Additional medical history: Diabetes - diagnosed at [facility] approximately 11/22. Psychiatric history: anxiety, depression - Past Surgical History Surgical History: angioplasty/stent, coronary bypass (CABG), hysterectomy, pacemaker/AICD Additional surgical history: lower back surgery in 02/2013. - Social History Smoking Status: Current every day smoker Smokeless Tobacco Status: No Alcohol use: none Drug use: none - Family History Father Adopted: No Family Member Ethnicity: Non- Living Status: Hx Family Cardiac Disorders: Yes (SC) Hx Family Respiratory Disorders: No Hx Family Cancer: No Hx Family GI Disorders: No Hx Family Endocrine Disorder: No Hx Family Neuromuscular Disorders: No Hx Family Neurologic Disorders: No Hx Family HEENT Disorders: No Hx Family Autoimmune Disorders: No Mother Family Member Ethnicity: Non- Living Status: Hx Family Cardiac Disorders: Yes (Afib, CAD, HF) Hx Family Endocrine Disorder: Yes (DM) Brother Family Member Ethnicity: Non- Living Status: Sister Family Member Ethnicity: Non- Living Status: Internal Medicine - H&P: Meds Apixaban [Eliquis] 5 mg PO BID 08/04/16 [History] Clopidogrel [Plavix] 75 mg PO QAM 08/04/16 [History] Ferrous Sulfate 325 mg PO QAM 08/04/16 [History] Pantoprazole Sodium [Protonix] 40 mg PO QAM 08/04/16 [History] Oxygen 3 - 5 l NS AD 12/06/16 [History] Digoxin [Lanoxin] 0.125 mg PO MOTUWETH 02/04/17 [History] Sennosides [Senna] 8.6 mg PO DAILY PRN 02/04/17 [History] Ipratropium/Albuterol Neb [Duoneb] 3 ml IH Q6HR 02/27/17 [History] Furosemide [Lasix] 40 mg PO BID 03/13/17 [History] metFORMIN [Glucophage] 500 mg PO QAM 07/11/17 [History] Potassium Chloride 10 meq PO DAILY #30 tab.er.prt 07/15/17 [Rx] Insulin DETEMIR [Levemir] 38 unit SQ HS 09/05/17 [History] Potassium Chloride [K-Tab ER] 20 meq PO MOTH 09/05/17 [History] Spironolactone [Aldactone] 25 mg PO DAILY 09/05/17 [History] metOLazone [Metolazone] 10 mg PO MOTH 09/05/17 [History] 3 Allergy/AdvReac Type Severity Reaction Status Date / Time bupropion [From Wellbutrin] Allergy Swelling Verified 09/05/17 17:06 of Lip/Tongue/Throat Sulfa (Sulfonamide Allergy Hives Verified 09/05/17 17:06 Antibiotics) Varenicline [From Chantix] Allergy Swelling Verified 09/05/17 17:06 of Lip/Tongue/Throat Iodinated Contrast- Oral and AdvReac See Verified 09/05/17 17:06 IV Dye Comments [Iodinated Contrast Media - Oral and] lidocaine AdvReac Hives Verified 09/05/17 17:06 tape Allergy Hives Uncoded 04/11/17 12:53 All Systems PM: A 10-system review of systems was performed and is negative for pertinent findings except as documented above in the HPI. - Constitutional Constitutional: malaise, no chills, no fever(s), no night sweats - EENT Eyes: no change in vision, no discharge, no pain, no photophobia Ears: no ear discharge, no ear pain, no tinnitus Nose, mouth and throat: no dysphagia, no nasal discharge, no neck pain, no sore throat - Cardiovascular Cardiovascular ROS IM: no chest pain, no diaphoresis, no dyspnea, no lightheadedness, no palpitations, no syncope - Respiratory Respiratory: cough, dyspnea, no wheezing, no excessive phlegm production - Constitutional Vitals: Temp Pulse Resp BP Pulse Ox 99.0 F 68 18 103/67 99 10/11/17 18:25 10/11/17 20:35 10/11/17 20:35 10/11/17 20:35 10/11/17 20:35 General appearance: Present: cooperative, A&O X 3, pleasant, obese - Neck Neck exam general surgery: Present: supple, trachea midline. Absent: lymphadenopathy - Respiratory Respiratory exam: Present: prolonged expiratory phase. Absent: accessory muscle use, rhonchi, wheezes - Cardiovascular Cardiovascular exam: Present: RRR, +S1, +S2. Absent: diastolic murmur, gallop, rubs, systolic murmur - GI/Abdominal GI/Abdominal exam: Present: normal bowel sounds, soft, no peritoneal signs. Absent: distended, tenderness - Extremities Exam Extremities exam: Present: warm, radial pulses palpable and symmetrical. Absent : calf tenderness, cyanotic, pedal edema - Neurological Exam Neurological exam: Present: CN II-XII intact, oriented X3, no focal deficits. Absent: facial droop, speech deficit - Skin Skin exam: Present: dry, intact Internal Med - H&P Results - Labs CBC & Chem 7: 10/11/17 19:36 - Assessment and plan (1) TREY (acute kidney injury) Current Visit: Yes Status: Acute Assessment and plan: Patient has mild acute kidney injury on chronic kidney disease. Clearly related to medications that she takes including some Lasix, spironolactone and metolazone. We will hold his medications for now. Gentle hydration. Follow renal function closely. (2) Atrial fibrillation Current Visit: Yes Status: Chronic Assessment and plan: Continue home medications. Currently rate controlled. On anticoagulation with Eliquis Qualifiers: Atrial fibrillation type: chronic Qualified Code(s): I48.2 - Chronic atrial fibrillation (3) CHF (congestive heart failure) Current Visit: Yes Status: Chronic Assessment and plan: Will hold Lasix for now. Not in acute exacerbation. Patient does have chronic mild troponin elevation. Will trend for now. Qualifiers: Heart failure type: systolic Heart failure chronicity: chronic Qualified Code(s): I50.22 - Chronic systolic (congestive) heart failure (4) COPD (chronic obstructive pulmonary disease) Current Visit: Yes Status: Chronic Assessment and plan: Treat with bronchodilators as needed. Not in acute exacerbation although she does have increased cough. We will get chest x-ray. Qualifiers: COPD type: unspecified COPD Qualified Code(s): J44.9 - Chronic obstructive pulmonary disease, unspecified (5) Hypertension Current Visit: Yes Status: Chronic Assessment and plan: Monitor blood pressure. Continue home medications Qualifiers: Hypertension type: essential hypertension Qualified Code(s): I10 - Essential (primary) hypertension (6) Type 2 diabetes mellitus Current Visit: Yes Status: Chronic Assessment and plan: Monitor blood sugars. Sliding scale insulin. Diabetic diet. 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
[2017-10-11] MEDS ORDERED: *HR* Dextrose 50 % in Water (Syg) 50 ML SYRINGE IVP PRN (22:27)
[2017-10-11] MEDS ORDERED: Dextrose Gel 15 GM/37.5 ML TUBE PO PRN ×2 (22:27)
[2017-10-11] MEDS ORDERED: D5% in Water 1,000 ML IVC PRN (22:27)
[2017-10-11] MEDS ORDERED: Naloxone 0.4 MG/ML INJ IVP PRN (22:27)
[2017-10-11] MEDS ORDERED: Sennosides 8.6 MG TABLET PO PRN (22:29)
[2017-10-11] MEDS: 0.9 % Sodium Chloride 1,000 ML IVC SCH (22:51)
[2017-10-11] MEDS: Insulin DETEMIR 100 UNIT/ML X5UNITS SQ SCH (22:53)
--- NOTE | 2017-10-11 23:21 | Emergency Department Note ---
Disposition Clinical Impression: CKD (chronic kidney disease), Chest pain, TREY (acute kidney injury), Elevated troponin I level Atrial fibrillation Qualifiers: Atrial fibrillation type: chronic Qualified Code(s): I48.2 - Chronic atrial fibrillation Disposition: Admitted As Inpatient Condition: Good General Adult HPI - General Chief complaint: ED Recheck/Abnormal Lab/Rx Stated complaint: abnormal labs Time Seen by Provider: 10/11/17 18:47 Source: patient Mode of arrival: ambulatory Limitations: no limitations - History of Present Illness Pain Scale: 0 - Related Data Home Medications Medication Instructions Recorded Confirmed Apixaban [Eliquis] 5 mg PO BID 08/04/16 10/11/17 Clopidogrel [Plavix] 75 mg PO QAM 08/04/16 10/11/17 Ferrous Sulfate 325 mg PO QAM 08/04/16 10/11/17 Pantoprazole Sodium [Protonix] 40 mg PO QAM 08/04/16 10/11/17 Oxygen 3 - 5 l NS AD 12/06/16 10/11/17 Digoxin [Lanoxin] 0.125 mg PO MOTUWETH 02/04/17 10/11/17 Sennosides [Senna] 8.6 mg PO DAILY PRN 02/04/17 10/11/17 Ipratropium/Albuterol Neb [Duoneb] 3 ml IH Q6HR 02/27/17 10/11/17 Furosemide [Lasix] 40 mg PO BID 03/13/17 10/11/17 metFORMIN [Glucophage] 500 mg PO QAM 07/11/17 10/11/17 Insulin DETEMIR [Levemir] 38 unit SQ HS 09/05/17 10/11/17 Potassium Chloride [K-Tab ER] 20 meq PO MOTH 09/05/17 10/11/17 Spironolactone [Aldactone] 25 mg PO DAILY 09/05/17 10/11/17 metOLazone [Metolazone] 10 mg PO MOTH 09/05/17 10/11/17 Previous Rx's Medication Instructions Recorded Potassium Chloride 10 meq PO DAILY #30 tab.er.prt 07/15/17 Allergies Allergy/AdvReac Type Severity Reaction Status Date / Time bupropion [From Wellbutrin] Allergy Swelling Verified 09/05/17 17:06 of Lip/Tongue/Throat Sulfa (Sulfonamide Allergy Hives Verified 09/05/17 17:06 Antibiotics) Varenicline [From Chantix] Allergy Swelling Verified 09/05/17 17:06 of Lip/Tongue/Throat Iodinated Contrast- Oral and AdvReac See Verified 09/05/17 17:06 IV Dye Comments [Iodinated Contrast Media - Oral and] lidocaine AdvReac Hives Verified 09/05/17 17:06 tape Allergy Hives Uncoded 04/11/17 12:53 Past Medical History - Past Medical History Medical history: Reports: arthritis, atrial fibrillation, CHF, COPD, coronary artery disease, diabetes, hypertension, myocardial infarction Surgical history: Reports: angioplasty/stent, coronary bypass (CABG), hysterectomy, pacemaker/AICD Psychiatric history: Reports: anxiety, depression - Social History Smoking Status: Current every day smoker Smokeless Tobacco Status: No Alcohol use: Reports: none Drug use: Reports: none Physical Exam - General Limitations: no limitations General appearance: alert, in no apparent distress Course Vital Signs Temperature 99.0 F 10/11/17 17:51 Pulse Rate 80 10/11/17 17:51 Respiratory Rate 18 10/11/17 17:51 Blood Pressure 107/68 10/11/17 17:51 O2 Sat by Pulse Oximetry 93 10/11/17 17:51 Temperature 97.7 F 10/11/17 22:14 Pulse Rate 75 10/11/17 22:14 Respiratory Rate 14 10/11/17 22:14 Blood Pressure 95/58 10/11/17 22:14 O2 Sat by Pulse Oximetry 93 10/11/17 22:14 Oxygen Delivery Oxygen Delivery Nasal Cannula Medical Decision Making - Lab Data Result diagrams: 10/11/17 19:36 Lab Results 10/11/17 10/11/17 10/11/17 Range/Units 19:20 19:36 19:36 WBC 17.8 H (4.3-11.1) K/mcL RBC 4.17 (3.82-4.97) M/mcL Hgb 12.7 (11.5-15.4) g/dL Hct 36.3 (35.3-44.9) % MCV 87.1 (83.0-100.0) fL MCH 30.5 (28.0-33.3) pg MCHC 35.0 (31.6-35.5) g/dL RDW 14.3 (11.5-14.5) % Plt Count 314 (140-400) K/mcL MPV 11.1 (9.4-12.4) fL Immature Gran % 0.9 (0-4) % Seg Neutrophils % 80.7 % Lymphocytes % 12.0 % Monocytes % 5.6 % Eosinophils % 0.5 % Basophils % 0.3 % Neutrophils # 14.4 H (1.6-8.9) K/mcL Lymphocytes # 2.1 (0.6-4.6) K/mcL Monocytes # 1.0 (0.0-1.3) K/mcL Eosinophils # 0.1 (0.0-0.6) K/mcL Basophils # 0.1 (0.0-0.2) K/mcL Troponin I 0.10 H* (< 0.04) ng/mL Urine Color Yellow (Yellow) Urine Clarity Clear (Clear) Urine pH 6.5 (5.0-8.0) pH Units Ur Specific [place] 1.009 L (1.010-1.025) Urine Protein Trace (Neg-Trace) mg/dL Urine Glucose (UA) Normal (Normal) mg/dL Urine Ketones Negative (Negative) mg/dL Urine Blood Negative (Negative) Urine Nitrite Negative (Negative) Urine Bilirubin Negative (Negative) Urine Urobilinogen Normal (Normal) mg/dL Ur Leukocyte Esterase Negative (Negative) Urine Microscopic RBC 5-15 H (0-3) per hpf Urine Microscopic WBC 0-3 (0-3) per hpf Ur Squamous Epith Cells Moderate H (None-Few) per lpf Urine Bacteria None Seen (None-Few) per hpf Hyaline Casts None Seen (None-Few) per lpf Ur Culture Indicated? NO (NO) Attestation Statement - Attestation Attestation: I examined this patient and my medical decision-making was reviewed with the Resident Physician. I agree with the documented findings, disposition and treatment plan as described except to the extent set forth below. 72-year-old female presents to the ED because of abnormal labs. She was seen by her PCP and deferred to the emergency department for admission due to she will insufficiency. Patient has mild MR and does not consume fluids as directed. She went in for routine visit today but was also having some difficulty breathing as well as generalized weakness. Labs suggestive of acute renal insufficiency probably them to send her to the ED. She was also hypokalemic. His been no fevers. No dysuria. No productive cough. No chest pain. No recent change in medications. Pleasant female in no apparent distress. Limited input from patient, only answers yes / no questions Oropharynx is dry. Neck is supple. Chest with biphasic wheezes in all lung steel. Cardiac exam regular chest wall nontender. Abdomen soft, nondistended nontender. Skin is warm and dry. Extremities without edema. Laboratory evaluated and are consistent with a prerenal azotemia. She was given DuoNeb for wheezing and will be admitted on IV fluids which may be the only therapy necessary for her presenting renal insufficiency.
[2017-10-12 01:33] LABS: Basophils % 0.3 %; Eosinophils # 0.1 K/mcL (0.0-0.6); Eosinophils % 0.5 %; Hematocrit 30.8 % (35.3-44.9); Immature Granulocytes % 0.6 % (0-4); Lymphocytes % 13.6 %; Mean Corpuscular HGB Conc 34.7 g/dL (31.6-35.5); Mean Corpuscular Hemoglobin 30.2 pg (28.0-33.3); Mean Platelet Volume 10.9 fL (9.4-12.4); Monocytes # 0.9 K/mcL (0.0-1.3); Monocytes % 6.3 %; Neutrophils # 11.4 K/mcL (1.6-8.9); Platelet Count 251 K/mcL (140-400); Red Blood Count 3.54 M/mcL (3.82-4.97); Red Cell Distribution Width 14.2 % (11.5-14.5); Segmented Neutrophils % 78.7 %
[2017-10-12 01:35] LABS: Hemoglobin 10.7 g/dL (11.5-15.4)
[2017-10-12 01:49] LABS: Calcium 8.6 mg/dL (8.6-10.3); Potassium 2.7 mEq/L (3.5-5.1)
[2017-10-12] MEDS: Ipratropium/Albuterol Neb 3 ML IH SCH ×4 (04:05→22:31)
[2017-10-12] MEDS: 0.9 % Sodium Chloride 1,000 ML IVC SCH (06:02)
[2017-10-12] MEDS: Insulin LISPRO 300 UNITS/3 ML VIAL SQ SCH ×4 (08:57→20:51)
[2017-10-12] MEDS: Apixaban 5 MG TABLET PO SCH ×2 (09:04→20:22)
[2017-10-12] MEDS: Potassium Chloride Elixir 20 MEQ/15 ML UDC PO SCH ×2 (15:47→17:36)
--- NOTE | 2017-10-12 16:58 | Internal Med Progress Note ---
Date of Encounter: 10/12/17 Time of Encounter: 13:40 - Assessment and plan (1) TREY (acute kidney injury) Current Visit: Yes Status: Acute Assessment and plan: TREY in CKD in the setting of multiple diuretics including Metolazone; serum creatinine noted to be improving, 2.2 today. Baseline around 1.5. continue gentle IV hydration and hold diuretics for now; Patient is on Home Hospice, now discharged due to admission; wants to resume Hospice care at discharge; Code status discussed- confirmed she is DNR-CCA/DNI; (2) Hypertension Current Visit: Yes Status: Chronic Qualifiers: Hypertension type: essential hypertension Qualified Code(s): I10 - Essential (primary) hypertension (3) COPD (chronic obstructive pulmonary disease) Current Visit: Yes Status: Chronic Assessment and plan: Not in acute exacerbation. Continue when necessary breathing treatments and supplemental oxygen. Qualifiers: COPD type: unspecified COPD Qualified Code(s): J44.9 - Chronic obstructive pulmonary disease, unspecified (4) Type 2 diabetes mellitus Current Visit: Yes Status: Chronic Assessment and plan: Blood sugars well controlled. Continue basal bolus insulin regimen and Accu- Chek blood glucose monitoring. Diabetic diet. Qualifiers: Diabetes mellitus hand heel seat fitter insulin use: with usp use Diabetes mellitus complication status: with kidney complications Diabetes mellitus complication detail: with chronic kidney disease Chronic kidney disease stage : stage 3 (moderate) Qualified Code(s): E11.22 - Type 2 diabetes mellitus with diabetic chronic kidney disease; N18.3 - Chronic kidney disease, stage 3 ( moderate); Z79.4 - senior living (current) use of insulin (5) CHF (congestive heart failure) Current Visit: Yes Status: Chronic Assessment and plan: Will hold Lasix for now. Not in acute exacerbation. Patient does have chronic mild troponin elevation. Qualifiers: Heart failure type: systolic Heart failure chronicity: chronic Qualified Code(s): I50.22 - Chronic systolic (congestive) heart failure (6) Atrial fibrillation Current Visit: Yes Status: Chronic Assessment and plan: Continue home medications. Currently rate controlled. On anticoagulation with Eliquis Qualifiers: Atrial fibrillation type: chronic Qualified Code(s): I48.2 - Chronic atrial fibrillation (7) CAD (coronary artery disease) Current Visit: Yes Status: Chronic Qualifiers: Coronary Disease-Associated Artery/Lesion type: bypass graft [place] vs. transplanted heart: [place] heart Associated angina: without angina Qualified Code(s): I25.810 - Atherosclerosis of coronary artery bypass graft(s) without angina pectoris (8) JORGE (obstructive sleep apnea) Current Visit: Yes Status: Chronic - Time Spent With Patient Total time spent is greater than 50% in coordination of care (as documented) at patient's floor/unit and/or counseling patient: - Subjective Interval history: Reports feeling well; no chest pain, shortness of breath, palpitations, nausea, vomiting; on Home Hospice at home; - Constitutional Vitals: Temp Pulse Resp BP Pulse Ox 98.5 F 62 16 97/59 99 10/12/17 15:49 10/12/17 15:49 10/12/17 15:49 10/12/17 15:49 10/12/17 15:49 General appearance: Present: A&O X 3, answers questions appropriately - Respiratory Respiratory exam: Present: CTAB. Absent: accessory muscle use, rales, rhonchi, wheezes - Cardiovascular Cardiovascular exam: Present: irregular rhythm, +S1, +S2. Absent: diastolic murmur, gallop, rubs, systolic murmur - GI/Abdominal GI/Abdominal exam: Present: normal bowel sounds, soft, no peritoneal signs. Absent: distended, tenderness - Extremities Exam Extremities exam: Present: full ROM, warm, radial pulses palpable and symmetrical. Absent: calf tenderness, cyanotic, pedal edema Internal Medicine: Result - Labs CBC & Chem 7: 10/12/17 01:15 10/12/17 01:15 Labs: Short CBC 10/12/17 Range/Units 01:15 WBC 14.6 H (4.3-11.1) K/mcL Hgb 10.7 L D (11.5-15.4) g/dL Hct 30.8 L (35.3-44.9) % Plt Count 251 (140-400) K/mcL Neutrophils # 11.4 H (1.6-8.9) K/mcL BMP 10/12/17 01:15 Sodium 138 Potassium 2.7 L Chloride 95 L Carbon Dioxide 32 H BUN 60 H Creatinine 2.20 H Glucose 102 Calcium 8.6 Cardiac Enzymes 10/12/17 10/12/17 Range/Units 01:15 07:38 Troponin I 0.09 H* 0.09 H* (< 0.04) ng/mL - Impressions Impressions Chest X-Ray 10/12/17 01:45 IMPRESSION: No acute abnormality D/ / Reid Gillespie MD / Reid Gillespie MD Interpreting Provider: Reid Gillespie MD Consult Discharge Plan - Plan Referrals: Hal Monroy MD [Primary Care Provider] - 10/17/17 10:15 am
[2017-10-12] MEDS: Ringers Solution, Lactated 1,000 ML IVC SCH (17:36)
[2017-10-12 20:30] LABS: Acinetobacter baumannii by PCR Not Detected (Not Detect); Candida albicans by PCR Not Detected (Not Detect); Candida glabrata by PCR Not Detected (Not Detect); Candida krusei by PCR Not Detected (Not Detect); Candida parapsilosis by PCR Not Detected (Not Detect); Candida tropicalis by PCR Not Detected (Not Detect); Enterococcus by PCR Not Detected (Not Detect); Escherichia coli by PCR Not Detected (Not Detect); Klebsiella oxytoca by PCR Not Detected (Not Detect); Klebsiella pneumoniae by PCR Not Detected (Not Detect); Pseudomonas aeruginosa by PCR Not Detected (Not Detect); Serratia marcescens by PCR Not Detected (Not Detect); Staphylococcus aureus by PCR Not Detected (Not Detect); Streptococcus agalactiae(B)PCR Not Detected (Not Detect); Streptococcus by PCR Not Detected (Not Detect); Streptococcus pneumoniae PCR Not Detected (Not Detect); Streptococcus pyogenes (A) PCR Not Detected (Not Detect); blaKPC Carbapenem-Resist Gene Not Detected (Not Detect); mecA Methicillin-Resist Gene ***DETECTED*** (Not Detect); vanA/B Vancomycin-Resist Genes Not Detected (Not Detect)
[2017-10-12] MEDS: Insulin DETEMIR 100 UNIT/ML X5UNITS SQ SCH (21:26)
[2017-10-12] MEDS ORDERED: Piperacillin/Tazobactam 3.375 GM in 0.9 % Sodium Chloride Mini Bag 100 ML IVPB SCH (22:00)
[2017-10-12] MEDS ORDERED: Piperacillin/Tazobactam 4.5 GM in 0.9 % Sodium Chloride Mini Bag 100 ML IVPB ONE (22:08)
--- NOTE | 2017-10-12 22:21 | Event Note ---
Date of Encounter: 10/12/17 Time of Encounter: 22:17 Blood culture returned as gram positive cocci, and methicillin resistant staph, waiting for sensitivity. I started the patient on vancomycin and zosyn prophylactically.
[2017-10-12] MEDS ORDERED: Vancomycin 0 MG in 0.9 % Sodium Chloride 250 ML IVPB SCH (23:00)
[2017-10-13] MEDS: Ipratropium/Albuterol Neb 3 ML IH SCH ×4 (04:37→22:30)
[2017-10-13 06:51] LABS: Basophils % 0.3 %; Eosinophils # 0.2 K/mcL (0.0-0.6); Eosinophils % 1.6 %; Hematocrit 27.1 % (35.3-44.9); Hemoglobin 9.3 g/dL (11.5-15.4); Immature Granulocytes % 0.8 % (0-4); Lymphocytes # 1.8 K/mcL (0.6-4.6); Lymphocytes % 19.4 %; Mean Corpuscular HGB Conc 34.3 g/dL (31.6-35.5); Mean Corpuscular Hemoglobin 30.3 pg (28.0-33.3); Mean Corpuscular Volume 88.3 fL (83.0-100.0); Mean Platelet Volume 10.9 fL (9.4-12.4); Monocytes # 0.8 K/mcL (0.0-1.3); Monocytes % 8.6 %; Neutrophils # 6.4 K/mcL (1.6-8.9); Platelet Count 192 K/mcL (140-400); Red Blood Count 3.07 M/mcL (3.82-4.97); Red Cell Distribution Width 14.1 % (11.5-14.5); Segmented Neutrophils % 69.3 %
[2017-10-13 07:42] LABS: Calcium 8.4 mg/dL (8.6-10.3); Potassium 3.2 mEq/L (3.5-5.1)
[2017-10-13 08:37] LABS: Magnesium 1.8 mg/dL (1.6-2.6)
[2017-10-13] MEDS: Insulin LISPRO 300 UNITS/3 ML VIAL SQ SCH ×4 (08:38→21:35)
[2017-10-13] MEDS: Ringers Solution, Lactated 1,000 ML IVC SCH (08:48)
[2017-10-13] MEDS: Apixaban 5 MG TABLET PO SCH ×2 (08:54→20:29)
[2017-10-13] MEDS ORDERED: Piperacillin/Tazobactam 3.375 GM in 0.9 % Sodium Chloride Mini Bag 100 ML IVPB SCH (10:00)
[2017-10-13] MEDS ORDERED: Potassium Chloride Elixir 20 MEQ/15 ML UDC PO ONE (14:33)
--- NOTE | 2017-10-13 17:14 | Internal Med Progress Note ---
Date of Encounter: 10/13/17 Time of Encounter: 14:40 - Assessment and plan (1) Bacteremia Current Visit: Yes Status: Acute Assessment and plan: One out of 2 initial blood cultures grew gram-positive cocci, serology positive for MRSA. Probably a contaminant. No source of infection-chest x-ray showed no pneumonia, urinalysis not suggestive of UTI. Patient has been started on IV vancomycin and Zosyn. Repeat blood cultures and continue vancomycin, hold Zosyn for now. (2) TREY (acute kidney injury) Current Visit: Yes Status: Acute Assessment and plan: TREY in CKD in the setting of multiple diuretics including Metolazone; serum creatinine noted to be improving, 1.69 today. Baseline around 1.5. continue gentle IV hydration and hold diuretics for now; (3) Hypertension Current Visit: Yes Status: Chronic Assessment and plan: Monitor blood pressure. Continue home medications Qualifiers: Hypertension type: essential hypertension Qualified Code(s): I10 - Essential (primary) hypertension (4) COPD (chronic obstructive pulmonary disease) Current Visit: Yes Status: Chronic Qualifiers: COPD type: unspecified COPD Qualified Code(s): J44.9 - Chronic obstructive pulmonary disease, unspecified (5) Type 2 diabetes mellitus Current Visit: Yes Status: Chronic Assessment and plan: Blood sugars well controlled. Continue basal bolus insulin regimen and Accu- Chek blood glucose monitoring. Diabetic diet. Qualifiers: Diabetes mellitus long term care administrator insulin use: with long term care administrator use Diabetes mellitus complication status: with kidney complications Diabetes mellitus complication detail: with chronic kidney disease Chronic kidney disease stage : stage 3 (moderate) Qualified Code(s): E11.22 - Type 2 diabetes mellitus with diabetic chronic kidney disease; N18.3 - Chronic kidney disease, stage 3 ( moderate); Z79.4 - [facility] (current) use of insulin (6) CHF (congestive heart failure) Current Visit: Yes Status: Chronic Assessment and plan: Will hold Lasix for now. Not in acute exacerbation. Patient does have chronic mild troponin elevation. Qualifiers: Heart failure type: systolic Heart failure chronicity: chronic Qualified Code(s): I50.22 - Chronic systolic (congestive) heart failure (7) Atrial fibrillation Current Visit: Yes Status: Chronic Qualifiers: Atrial fibrillation type: chronic Qualified Code(s): I48.2 - Chronic atrial fibrillation (8) CAD (coronary artery disease) Current Visit: Yes Status: Chronic Qualifiers: Coronary Disease-Associated Artery/Lesion type: bypass graft [place] vs. transplanted heart: [place] heart Associated angina: without angina Qualified Code(s): I25.810 - Atherosclerosis of coronary artery bypass graft(s) without angina pectoris (9) JORGE (obstructive sleep apnea) Current Visit: Yes Status: Chronic (10) Tobacco abuse Current Visit: Yes Status: Chronic Assessment and plan: Requests for nicotine transdermal patch. Not motivated to quit smoking at this time. (11) Hypokalemia Current Visit: Yes Status: Acute Assessment and plan: Likely due to diuretic use. Continue home dose and supplemental with extra potassium chloride. Monitor electrolytes closely. - Time Spent With Patient Total time spent is greater than 50% in coordination of care (as documented) at patient's floor/unit and/or counseling patient: - Subjective Interval history: Reports feeling well; no chest pain, shortness of breath, palpitations, nausea, vomiting; on Home Hospice at home; plan of care explained to patient's daughter at bedside. - Constitutional Vitals: Temp Pulse Resp BP Pulse Ox 97.8 F 61 16 106/52 97 10/13/17 15:11 10/13/17 15:11 10/13/17 16:30 10/13/17 15:11 10/13/17 16:30 General appearance: Present: A&O X 3, answers questions appropriately - Respiratory Respiratory exam: Present: CTAB. Absent: accessory muscle use, rales, rhonchi, wheezes - Cardiovascular Cardiovascular exam: Present: irregular rhythm, +S1, +S2. Absent: diastolic murmur, gallop, rubs, systolic murmur - GI/Abdominal GI/Abdominal exam: Present: normal bowel sounds, soft, no peritoneal signs. Absent: distended, tenderness - Extremities Exam Extremities exam: Present: full ROM, warm, radial pulses palpable and symmetrical. Absent: calf tenderness, cyanotic, pedal edema Internal Medicine: Result - Labs CBC & Chem 7: 10/13/17 06:32 10/13/17 06:32 Labs: Short CBC 10/13/17 Range/Units 06:32 WBC 9.2 (4.3-11.1) K/mcL Hgb 9.3 L (11.5-15.4) g/dL Hct 27.1 L (35.3-44.9) % Plt Count 192 (140-400) K/mcL Neutrophils # 6.4 (1.6-8.9) K/mcL BMP 10/13/17 06:32 Sodium 139 Potassium 3.2 L Chloride 103 Carbon Dioxide 29 BUN 47 H Creatinine 1.69 H Glucose 82 Calcium 8.4 L Consult Discharge Plan - Plan Referrals: Hal Monroy MD [Primary Care Provider] - 10/17/17 10:15 am
[2017-10-13] MEDS: Nicotine 21 MG PATCH.TD24 TD SCH (17:51)
[2017-10-13] MEDS ORDERED: Aminoglycoside Consult 1 EACH MC ONE (21:25)
[2017-10-13] MEDS: Insulin DETEMIR 100 UNIT/ML X5UNITS SQ SCH (21:37)
[2017-10-14] MEDS: Ringers Solution, Lactated 1,000 ML IVC SCH (01:34)
[2017-10-14] MEDS: Ipratropium/Albuterol Neb 3 ML IH SCH ×4 (03:58→21:12)
[2017-10-14 08:10] LABS: Calcium 8.5 mg/dL (8.6-10.3); Magnesium 1.7 mg/dL (1.6-2.6); Potassium 3.6 mEq/L (3.5-5.1)
[2017-10-14] MEDS: Insulin LISPRO 300 UNITS/3 ML VIAL SQ SCH ×4 (08:15→21:09)
[2017-10-14] MEDS: Nicotine 21 MG PATCH.TD24 TD SCH (09:41)
[2017-10-14] MEDS: Apixaban 5 MG TABLET PO SCH ×2 (09:41→21:37)
--- NOTE | 2017-10-14 15:56 | Internal Med Progress Note ---
Date of Encounter: 10/14/17 Time of Encounter: 13:00 - Assessment and plan (1) Bacteremia Current Visit: Yes Status: Resolved Assessment and plan: One out of 2 initial blood cultures grew gram-positive cocci, serology positive for Mec-A gene but negative for staph aureus; Probably a contaminant like staph epidermidis. No source of infection-chest x-ray showed no pneumonia, urinalysis not suggestive of UTI. F/up Repeat blood cultures and discontinue vancomycin. Medically stable, however patient;s daughter is available tomorrow for ride home ; (2) TREY (acute kidney injury) Current Visit: Yes Status: Resolved Assessment and plan: TREY in CKD in the setting of multiple diuretics including Metolazone; serum creatinine noted to be improving, 1.52 today, at baseline. Hold IV hydration and hold diuretics for now; (3) Hypertension Current Visit: Yes Status: Chronic Assessment and plan: Monitor blood pressure. Continue home medications; Qualifiers: Hypertension type: essential hypertension Qualified Code(s): I10 - Essential (primary) hypertension (4) COPD (chronic obstructive pulmonary disease) Current Visit: Yes Status: Chronic Qualifiers: COPD type: unspecified COPD Qualified Code(s): J44.9 - Chronic obstructive pulmonary disease, unspecified (5) Type 2 diabetes mellitus Current Visit: Yes Status: Chronic Assessment and plan: Blood sugars well controlled. Continue basal bolus insulin regimen and Accu- Chek blood glucose monitoring. Diabetic diet. Qualifiers: Diabetes mellitus long distance operator insulin use: with retirement use Diabetes mellitus complication status: with kidney complications Diabetes mellitus complication detail: with chronic kidney disease Chronic kidney disease stage : stage 3 (moderate) Qualified Code(s): E11.22 - Type 2 diabetes mellitus with diabetic chronic kidney disease; N18.3 - Chronic kidney disease, stage 3 ( moderate); Z79.4 - intermodal dispatcher (current) use of insulin (6) CHF (congestive heart failure) Current Visit: Yes Status: Chronic Qualifiers: Heart failure type: systolic Heart failure chronicity: chronic Qualified Code(s): I50.22 - Chronic systolic (congestive) heart failure (7) Atrial fibrillation Current Visit: Yes Status: Chronic Assessment and plan: Continue home medications. Currently rate controlled. On anticoagulation with Eliquis Qualifiers: Atrial fibrillation type: chronic Qualified Code(s): I48.2 - Chronic atrial fibrillation (8) CAD (coronary artery disease) Current Visit: Yes Status: Chronic Qualifiers: Coronary Disease-Associated Artery/Lesion type: bypass graft [place] vs. transplanted heart: [place] heart Associated angina: without angina Qualified Code(s): I25.810 - Atherosclerosis of coronary artery bypass graft(s) without angina pectoris (9) JORGE (obstructive sleep apnea) Current Visit: Yes Status: Chronic (10) Tobacco abuse Current Visit: Yes Status: Chronic (11) Hypokalemia Current Visit: Yes Status: Resolved - Time Spent With Patient Total time spent is greater than 50% in coordination of care (as documented) at patient's floor/unit and/or counseling patient: - Subjective Interval history: Reports feeling well; no chest pain, shortness of breath, palpitations, nausea, vomiting; eating lunch, tolerates well; - Constitutional Vitals: Temp Pulse Resp BP Pulse Ox 98.3 F 63 16 106/53 100 10/14/17 11:15 10/14/17 11:15 10/14/17 15:42 10/14/17 11:15 10/14/17 15:42 General appearance: Present: A&O X 3, answers questions appropriately - Respiratory Respiratory exam: Present: CTAB. Absent: accessory muscle use, rales, rhonchi, wheezes - Cardiovascular Cardiovascular exam: Present: irregular rhythm, +S1, +S2. Absent: diastolic murmur, gallop, rubs, systolic murmur - GI/Abdominal GI/Abdominal exam: Present: normal bowel sounds, soft, no peritoneal signs. Absent: distended, tenderness Internal Medicine: Result - Labs CBC & Chem 7: 10/13/17 06:32 10/14/17 07:21 Labs: BMP 10/14/17 07:21 Sodium 141 Potassium 3.6 Chloride 105 Carbon Dioxide 32 H BUN 36 H Creatinine 1.52 H Glucose 83 Calcium 8.5 L Consult Discharge Plan - Plan Referrals: Hal Monroy MD [Primary Care Provider] - 10/17/17 10:15 am
--- NOTE | 2017-10-14 21:36 | Electrocardiograph Report ---
[place] [address] Test Date: 2017-10-11 Pat Name: Juan Rodarte Department: 104 Room: 3B Gender: F Construction Carpenter: : 1945 Requested By: [id number] Order Number: [id number] Reading MD: Yo Rodriguez Measurements Intervals [place] Rate: 71 P: [place]: 0 QRS: -50 QRSD: 157 T: 89 QT: 430 QTc: 453 Interpretive Statements ELECTRONIC VENTRICULAR PACEMAKER PVCs Electronically Signed On 10-14-2017 21:34:48 EDT by Yo Rodriguez
[2017-10-14] MEDS: Insulin DETEMIR 100 UNIT/ML X5UNITS SQ SCH (21:37)
[2017-10-15] MEDS: Ipratropium/Albuterol Neb 3 ML IH SCH ×2 (03:39→10:14)
[2017-10-15] MEDS: Insulin LISPRO 300 UNITS/3 ML VIAL SQ SCH ×2 (08:20→12:14)
[2017-10-15] MEDS: Apixaban 5 MG TABLET PO SCH (08:33)
[2017-10-15] MEDS: Nicotine 21 MG PATCH.TD24 TD SCH (08:38)
[2017-10-15] MEDS ORDERED: *HR* Digoxin 0.125 MG TABLET PO SCH (09:00)
[2017-10-15 11:02] VITALS: BP 124/70
--- NOTE | 2017-10-15 13:18 | Discharge Summary ---
- NOTES TO OUTPATIENT PROVIDER Notes to Outpatient Provider: TREY on CKD; hypokalemia Orders not resulted at time of discharge: Pending orders 10/13/17 15:12 Culture,Blood [BC] Routine Date of Encounter: 10/15/17 Time of Encounter: 13:15 - Discharge Diagnosis (1) Bacteremia Priority: Primary Status: Ruled-out (2) TREY (acute kidney injury) Priority: Primary Status: Resolved (3) Hypertension Priority: Secondary Status: Chronic Qualifiers: Hypertension type: essential hypertension Qualified Code(s): I10 - Essential (primary) hypertension (4) COPD (chronic obstructive pulmonary disease) Priority: Secondary Status: Chronic Qualifiers: COPD type: unspecified COPD Qualified Code(s): J44.9 - Chronic obstructive pulmonary disease, unspecified (5) Type 2 diabetes mellitus Priority: Secondary Status: Chronic Qualifiers: Diabetes mellitus retirement insulin use: with retirement use Diabetes mellitus complication status: with kidney complications Diabetes mellitus complication detail: with chronic kidney disease Chronic kidney disease stage : stage 3 (moderate) Qualified Code(s): E11.22 - Type 2 diabetes mellitus with diabetic chronic kidney disease; N18.3 - Chronic kidney disease, stage 3 ( moderate); Z79.4 - joint terminal attack controller (current) use of insulin (6) CHF (congestive heart failure) Priority: Secondary Status: Chronic Qualifiers: Heart failure type: systolic Heart failure chronicity: chronic Qualified Code(s): I50.22 - Chronic systolic (congestive) heart failure (7) Atrial fibrillation Priority: Secondary Status: Chronic Qualifiers: Atrial fibrillation type: chronic Qualified Code(s): I48.2 - Chronic atrial fibrillation (8) CAD (coronary artery disease) Priority: Secondary Status: Chronic Qualifiers: Coronary Disease-Associated Artery/Lesion type: bypass graft [place] vs. transplanted heart: [place] heart Associated angina: without angina Qualified Code(s): I25.810 - Atherosclerosis of coronary artery bypass graft(s) without angina pectoris (9) JORGE (obstructive sleep apnea) Priority: Secondary Status: Chronic (10) Tobacco abuse Priority: Secondary Status: Chronic (11) Hypokalemia Priority: Primary Status: Resolved Hospital course: Ms. Rodarte is a 72 year old female with history of CHF, on multiple diuretics at home, who was sent by cardiology due to worsening serum creatinine. Patient was noted to have acute on chronic renal failure due to diuretic use, she was given gentle IV hydration and diuretics were held. Serum creatinine improved well, currently back to baseline. She had hypokalemia and hypomagnesemia, electrolytes were appropriately replaced. One out of 2 initial blood cultures grew gram-positive cocci, likely staph epidermidis but final culture is pending. Repeat blood cultures are negative. She is otherwise medically stable for discharge. Code status has been confirmed as DNR comfort care arrest/DNI and she does have home hospice services by [place] at home, which will be resumed after discharge. Discharge discussed with: patient, family, nurse - Time Spent with Patient Total time spent providing and/or coordinating discharge services: Greater than 30 minutes (40 min) - Discharge Medications Home Medications: Apixaban [Eliquis] 5 mg PO BID 08/04/16 [History] Clopidogrel [Plavix] 75 mg PO QAM 08/04/16 [History] Ferrous Sulfate 325 mg PO QAM 08/04/16 [History] Pantoprazole Sodium [Protonix] 40 mg PO QAM 08/04/16 [History] Oxygen 3 - 5 l NS AD 12/06/16 [History] Digoxin [Lanoxin] 0.125 mg PO MOTUWETH 02/04/17 [History] Sennosides [Senna] 8.6 mg PO DAILY PRN 02/04/17 [History] Ipratropium/Albuterol Neb [Duoneb] 3 ml IH Q6HR 02/27/17 [History] Furosemide [Lasix] 40 mg PO BID 03/13/17 [History] metFORMIN [Glucophage] 500 mg PO QAM 07/11/17 [History] Potassium Chloride 10 meq PO DAILY #30 tab.er.prt 07/15/17 [Rx] Insulin DETEMIR [Levemir] 38 unit SQ HS 09/05/17 [History] Potassium Chloride [K-Tab ER] 20 meq PO MOTH 09/05/17 [History] Spironolactone [Aldactone] 25 mg PO DAILY 09/05/17 [History] metOLazone [Metolazone] 10 mg PO MOTH 09/05/17 [History] Allergies/Adverse Reactions: 3 Allergy/AdvReac Type Severity Reaction Status Date / Time bupropion [From Wellbutrin] Allergy Swelling Verified 09/05/17 17:06 of Lip/Tongue/Throat Sulfa (Sulfonamide Allergy Hives Verified 09/05/17 17:06 Antibiotics) Varenicline [From Chantix] Allergy Swelling Verified 09/05/17 17:06 of Lip/Tongue/Throat Iodinated Contrast- Oral and AdvReac See Verified 09/05/17 17:06 IV Dye Comments [Iodinated Contrast Media - Oral and] lidocaine AdvReac Hives Verified 09/05/17 17:06 tape Allergy Hives Uncoded 04/11/17 12:53 Date of admission: 10/11/17 21:24 Primary care physician: Hal Monroy MD Consults: 10/12/17 01:45 Consult to Speech Therapy [CONS] Routine Comment: Evaluate, develop and implement POC Reason for Consult: Swallow evaluation reports cough with eating Call Completed: No 10/12/17 08:51 Consult to Nurse Navigator [CONS] Routine Comment: CHF Discharging clinician: Cathy Barron Anticipated date of discharge: 10/15/17 - Constitutional Vitals: Temp Pulse Resp BP Pulse Ox 98.1 F 74 18 124/70 96 10/15/17 11:01 10/15/17 11:01 10/15/17 11:01 10/15/17 11:01 10/15/17 11:01 General appearance: Present: A&O X 3, answers questions appropriately - Cardiovascular Cardiovascular exam: Present: irregular rhythm, +S1, +S2. Absent: diastolic murmur, gallop, rubs, systolic murmur - Patient Status Disposition: Hospice - Home Condition: Good Functional capacity at discharge: uses cane/walker Overall status at discharge: patient is progressing back to baseline - Discharge Instructions Instructions: Chronic Kidney Disease (DC), Chronic Obstructive Pulmonary Disease (DC) Follow Up With: Hal Monroy MD [Primary Care Provider] - 10/17/17 10:15 am - Diet and Activity Activity: as per physical therapy, wear oxygen at all times, other (CPAP at night) Diet: diabetic diet, low fat, low cholesterol, low salt diet (fluid restriction to 1.5L/day)
--- NOTE | 2017-10-15 13:26 | Physician Discharge Referral ---
Home Health/Hosp Referral Info Transfer to: Hospice Attending Provider: Cathy Barron Provider in Charge Post Discharge: PCP - Diagnosis (1) Bacteremia Priority: Primary Status: Ruled-out (2) TREY (acute kidney injury) Priority: Primary Status: Resolved (3) Hypertension Priority: Secondary Status: Chronic (4) COPD (chronic obstructive pulmonary disease) Priority: Secondary Status: Chronic (5) Type 2 diabetes mellitus Priority: Secondary Status: Chronic (6) CHF (congestive heart failure) Priority: Secondary Status: Chronic (7) Atrial fibrillation Priority: Secondary Status: Chronic (8) CAD (coronary artery disease) Priority: Secondary Status: Chronic (9) JORGE (obstructive sleep apnea) Priority: Secondary Status: Chronic (10) Tobacco abuse Priority: Secondary Status: Chronic (11) Hypokalemia Priority: Primary Status: Resolved - Respiratory Orders Oxygen / L per min (2-3L/min via NC) Smoking Cessation: Smoking cessation has been advised. For more information, call the [employer] Quit Line at 4-365-XIKO-NOW. - Diet/Nutrition Diet/Nutrition Orders: No Added Salt (LEROY), Cardiac (1.5L/day fluid restriction) , No Concentrated Sweets (diabetic) - Activity Activity Orders: Ambulate, Walker - Services Needed Following services are medically necessary services: Nursing, Physical Therapy, Occupational Therapy - Transfer Medications Home Medications: Apixaban [Eliquis] 5 mg PO BID 08/04/16 [History] Clopidogrel [Plavix] 75 mg PO QAM 08/04/16 [History] Ferrous Sulfate 325 mg PO QAM 08/04/16 [History] Pantoprazole Sodium [Protonix] 40 mg PO QAM 08/04/16 [History] Oxygen 3 - 5 l NS AD 12/06/16 [History] Digoxin [Lanoxin] 0.125 mg PO MOTUWETH 02/04/17 [History] Sennosides [Senna] 8.6 mg PO DAILY PRN 02/04/17 [History] Ipratropium/Albuterol Neb [Duoneb] 3 ml IH Q6HR 02/27/17 [History] Furosemide [Lasix] 40 mg PO BID 03/13/17 [History] metFORMIN [Glucophage] 500 mg PO QAM 07/11/17 [History] Potassium Chloride 10 meq PO DAILY #30 tab.er.prt 07/15/17 [Rx] Insulin DETEMIR [Levemir] 38 unit SQ HS 09/05/17 [History] Potassium Chloride [K-Tab ER] 20 meq PO MOTH 09/05/17 [History] Spironolactone [Aldactone] 25 mg PO DAILY 09/05/17 [History] metOLazone [Metolazone] 10 mg PO MOTH 09/05/17 [History] Allergies/Adverse Reactions: 3 Allergy/AdvReac Type Severity Reaction Status Date / Time bupropion [From Wellbutrin] Allergy Swelling Verified 09/05/17 17:06 of Lip/Tongue/Throat Sulfa (Sulfonamide Allergy Hives Verified 09/05/17 17:06 Antibiotics) Varenicline [From Chantix] Allergy Swelling Verified 09/05/17 17:06 of Lip/Tongue/Throat Iodinated Contrast- Oral and AdvReac See Verified 09/05/17 17:06 IV Dye Comments [Iodinated Contrast Media - Oral and] lidocaine AdvReac Hives Verified 09/05/17 17:06 tape Allergy Hives Uncoded 04/11/17 12:53 Certification: Further, I certify that my clinical findings support that this patient is homebound (i.e. absences from home require considerable and taxing effort and are for medical reasons or [employer] services or infrequently or short duration when for other reasons) because: Homebound Reason: Patient requires assistance of a person or device to safely leave home, Leaving home requires considerable and taxing effort due to condition, Severity of cardiac or pulmonary status limits activity tolerance Attestation: My signature below is to certify that this patient is under my care and that I, or nurse practitioner, or a physician's assistant project manager working with me, has a face-to -face encounter with this patient.
== END 2017-10-15 14:00 | disposition hospice, home (50) ==
LOC: 3BNU 17:50 → EMEROO 17:50 → SUATTDRO 21:24 → 3BNU 21:45
PROVIDERS: ADMIT Internal Medicine Hematology & Oncology; ATTEND Internal Medicine

== ENCOUNTER 2019-01-06 16:18 | Inpatient (IN) ==
[2019-01-06] MEDS ORDERED: 0.9 % Sodium Chloride 500 ML IVC ONE (17:35)
--- NOTE | 2019-01-06 18:20 | Emergency Department Note ---
Disposition Clinical Impression: Dehydration, Generalized weakness, Confusion Disposition: Admitted As Inpatient Condition: Fair Referrals: Hal Monroy MD [Primary Care Provider] - Forms: ED Satisfaction Letter, Work/School Release Time of Disposition: 19:42 General Adult HPI - General Chief complaint: ED General Medical Stated complaint: urinary problems Time Seen by Provider: 01/06/19 17:12 Source: family, EMS Limitations: no limitations Nursing Notes Reviewed: Yes Vital Signs Reviewed: Yes - History of Present Illness HPI Narrative: This is a 73 year-old female with history of HTN, IDDM, CAD/stent, AF, CHF, s/p pacer/defib. Code status is DNR-CC. Daughter brings her in with shortness of breath worsening for the past 2-3 days, with decreased SpO2, occasional cough, chills. Patient has also been increasingly lethargic/confused. UOP seems to be decreased. She has complained of low back pain at times, though denies it right now. Patient's intake has been poor, and daughter is concerned about dehydration. Pt Subjective Complaint: SOB, Generalized Weakness Onset (ago): day(s) (2-3) Pain Scale: 0 Associated symptoms: Reports: confusion, cough, fever/chills (no measured fevers), loss of appetite, malaise, shortness of breath, weakness (generalized). Denies: nausea/vomiting - Related Data Home Medications Medication Instructions Recorded Confirmed Apixaban [Eliquis] 5 mg PO BID 08/04/16 01/06/19 Clopidogrel [Plavix] 75 mg PO QAM 08/04/16 01/06/19 Ferrous Sulfate 325 mg PO QAM 08/04/16 01/06/19 Oxygen 3 - 5 l NS AD 12/06/16 01/06/19 Digoxin [Lanoxin] 0.125 mg PO MOWEFR 02/04/17 01/06/19 Sennosides [Senna] 8.6 mg PO DAILY PRN 02/04/17 01/06/19 Ipratropium/Albuterol Neb [Duoneb] 3 ml IH Q6HR 02/27/17 01/06/19 Furosemide [Lasix] 40 mg PO QAM 03/13/17 01/06/19 metFORMIN [Glucophage] 500 mg PO QAM 07/11/17 01/06/19 Insulin DETEMIR [Levemir] 20 unit SQ HS 09/05/17 01/06/19 Spironolactone [Aldactone] 25 mg PO DAILY 09/05/17 01/06/19 Acetaminophen/Diphenhydramine 1 tab PO HS 11/22/17 01/06/19 [Acetaminophen Pm Caplet] Fluticasone/Salmeterol [Advair 1 puff IH BID 11/22/17 01/06/19 500-50 Diskus] Metoprolol Succinate [Toprol Xl] 25 mg PO DAILY 11/22/17 01/06/19 Pravastatin Sodium [Pravachol] 80 mg PO HS 11/22/17 01/06/19 Aspirin [Lo-Dose Aspirin EC] 81 mg PO DAILY 11/23/17 01/06/19 Tramadol HCl [Ultram] 50 mg PO TID 11/23/17 01/06/19 Gabapentin [Neurontin] 200 mg PO TID 01/06/19 01/06/19 amLODIPine [Norvasc] 5 mg PO DAILY 01/06/19 01/06/19 traZODone [TraZODone] 100 mg PO HS 01/06/19 01/06/19 Previous Rx's Medication Instructions Recorded Potassium Chloride 10 meq PO DAILY #30 tab.er.prt 07/15/17 Allergies Allergy/AdvReac Type Severity Reaction Status Date / Time bupropion [From Wellbutrin] Allergy Swelling Verified 09/05/17 17:06 of Lip/Tongue/Throat Sulfa (Sulfonamide Allergy Hives Verified 09/05/17 17:06 Antibiotics) Varenicline [From Chantix] Allergy Swelling Verified 09/05/17 17:06 of Lip/Tongue/Throat Iodinated Contrast- Oral and AdvReac See Verified 09/05/17 17:06 IV Dye Comments [Iodinated Contrast Media - Oral and] lidocaine AdvReac Hives Verified 09/05/17 17:06 tape Allergy Hives Uncoded 04/11/17 12:53 Limitations: ROS unobtainable due to patients medical condition (somnolence, info supplied by daughter) Constitutional: Reports: chills, weakness. Denies: fever Respiratory: Reports: cough, dyspnea Gastrointestinal: Denies: abdominal pain, vomiting, diarrhea, constipation Musculoskeletal: Reports: back pain Past Medical History - Past Medical History Medical history: Reports: arthritis, atrial fibrillation, CHF, COPD, coronary artery disease, diabetes, hypertension, myocardial infarction Surgical history: Reports: angioplasty/stent, coronary bypass (CABG), hyste rectomy, pacemaker/AICD Psychiatric history: Reports: anxiety, depression - Social History Smoking Status: Current every day smoker Smokeless Tobacco Status: No Alcohol use: Reports: none Drug use: Reports: none Physical Exam - General Limitations: no limitations General appearance: lethargic - Head Head exam: atraumatic, normocephalic - Eye Eye exam: Present: normal appearance - ENT ENT exam: mucous membranes dry (very) - Neck Neck exam: Present: normal inspection - Respiratory Respiratory exam: Present: other (decreased breath sounds bilaterally). Absent: respiratory distress - Cardiovascular Cardiovascular exam: Present: regular rate, normal rhythm, normal heart sounds - Abdominal Exam Abdominal exam: Present: soft, Non-Tender. Absent: distention - Extremities Exam Extremities exam: Present: other (mild bilateral lower extremity edema) - Neurological Exam Neurological exam: Absent: alert, oriented X3, motor sensory deficit - Skin Skin exam: Present: warm, dry, intact Course - Reevaluation(s) Reevaluation #1: Pt has "perked up" a little with the IV fluid. Time: 19:42 - Consultations Consultation #1: D/w Radha from Palliative med service. She says that because patient is not [facility], the procedure is to admit to hospitalist and Palliative service to consult. Time: 20:05 Consultation #2: Pt accepted by Dr. Murcia. Time: 20:52 Vital Signs Temperature 98.6 F 01/06/19 16:21 Pulse Rate 82 01/06/19 16:21 Respiratory Rate 16 01/06/19 16:21 Blood Pressure 119/63 01/06/19 16:21 O2 Sat by Pulse Oximetry 99 01/06/19 16:21 Temperature 98.6 F 01/06/19 16:21 Pulse Rate 78 01/06/19 19:56 Respiratory Rate 16 01/06/19 19:56 Blood Pressure 132/58 01/06/19 19:56 O2 Sat by Pulse Oximetry 97 01/06/19 19:56 Oxygen Delivery Oxygen Delivery Nasal Cannula Medical Decision Making - Lab Data Lab results reviewed: Yes I reviewed the patient's lab results. Lab results narrative: CXR showed mild CHF Result diagrams: 01/06/19 18:10 01/06/19 18:10 Lab Results 01/06/19 01/06/19 01/06/19 Range/Units 18:10 18:10 18:33 WBC 15.8 H (4.3-11.1) K/mcL RBC 3.87 (3.82-4.97) M/mcL Hgb 11.5 (11.5-15.4) g/dL Hct 35.8 (35.3-44.9) % MCV 92.5 (83.0-100.0) fL MCH 29.7 (28.0-33.3) pg MCHC 32.1 (31.6-35.5) g/dL RDW 13.6 (11.5-14.5) % Plt Count 208 (140-400) K/mcL MPV 10.9 (9.4-12.4) fL Immature Gran % 0.4 (0-4) % Seg Neutrophils % 85.2 % Lymphocytes % 4.6 % Monocytes % 9.4 % Eosinophils % 0.2 % Basophils % 0.2 % Neutrophils # 13.5 H (1.6-8.9) K/mcL Lymphocytes # 0.7 (0.6-4.6) K/mcL Monocytes # 1.5 H (0.0-1.3) K/mcL Eosinophils # 0.0 (0.0-0.6) K/mcL Basophils # 0.0 (0.0-0.2) K/mcL Dohle Bodies Present A (Not Present) Sodium 132 L (136-145) mEq/L Potassium 4.6 (3.5-5.1) mEq/L Chloride 95 L (98-107) mEq/L Carbon Dioxide 29 (23-29) mEq/L BUN 40 H (8-23) mg/dL Creatinine 2.33 H (0.60-1.20) mg/dL Est GFR ( Amer) 25 L (> 60) Est GFR (Non-Af Amer) 20 L (> 60) BUN/Creatinine Ratio 17 (6-26) Glucose 96 (70-105) mg/dL Calculated Osmolality 284 (280-300) Calcium 9.2 (8.6-10.3) mg/dL Urine Color Yellow (Yellow) Urine Clarity Cloudy A (Clear) Urine pH 5.0 (5.0-8.0) pH Units Ur Specific [place] 1.018 (1.010-1.025) Urine Protein 30 H (Neg-Trace) mg/dL Urine Glucose (UA) Normal (Normal) mg/dL Urine Ketones Negative (Negative) mg/dL Urine Blood Moderate H (Negative) Urine Nitrite Negative (Negative) Urine Bilirubin Negative (Negative) Urine Urobilinogen Normal (Normal) mg/dL Ur Leukocyte Esterase Negative (Negative) Urine Microscopic RBC 0-3 (0-3) per hpf Urine Microscopic WBC 3-5 H (0-3) per hpf Ur Squamous Epith Cells Many H (None-Few) per lpf Urine Bacteria None Seen (None-Few) per hpf Hyaline Casts Few (None-Few) per lpf Urine Yeast Few H (None Seen) per hpf Ur Culture Indicated? NO (NO) Digoxin 1.7 (0.8-2.0) ng/mL - Radiology Data Radiology results reviewed: Yes I reviewed the patient's radiology results. CXR - Mild CHF
[2019-01-06 18:21] LABS: Basophils % 0.2 %; Eosinophils % 0.2 %; Hematocrit 35.8 % (35.3-44.9); Hemoglobin 11.5 g/dL (11.5-15.4); Immature Granulocytes % 0.4 % (0-4); Lymphocytes # 0.7 K/mcL (0.6-4.6); Lymphocytes % 4.6 %; Mean Corpuscular HGB Conc 32.1 g/dL (31.6-35.5); Mean Corpuscular Hemoglobin 29.7 pg (28.0-33.3); Mean Corpuscular Volume 92.5 fL (83.0-100.0); Mean Platelet Volume 10.9 fL (9.4-12.4); Monocytes # 1.5 K/mcL (0.0-1.3); Monocytes % 9.4 %; Neutrophils # 13.5 K/mcL (1.6-8.9); Platelet Count 208 K/mcL (140-400); Red Blood Count 3.87 M/mcL (3.82-4.97); Red Cell Distribution Width 13.6 % (11.5-14.5); Segmented Neutrophils % 85.2 %; White Blood Count 15.8 K/mcL (4.3-11.1)
[2019-01-06 18:43] LABS: Calcium 9.2 mg/dL (8.6-10.3); Potassium 4.6 mEq/L (3.5-5.1)
[2019-01-06 18:47] LABS: Dohle Bodies Present (Not Present)
[2019-01-06 18:47] LABS: Bilirubin,Urine Negative (Negative); Blood,Urine Moderate (Negative); Clarity,Urine Cloudy (Clear); Color,Urine Yellow (Yellow); Glucose,Urine (UA) Normal (Normal); Ketones,Urine Negative (Negative); Leukocyte Esterase,Urine Negative (Negative); Nitrite,Urine Negative (Negative); Protein,Urine 30 mg/dL (Neg-Trace); Specific Gravity,Urine 1.018 (1.010-1.025); Urobilinogen,Urine Normal (Normal)
[2019-01-06 18:49] LABS: Bacteria,Urine None Seen per hpf (None-Few); Hyaline Casts,Urine Few per lpf (None-Few); RBC,Urine 0-3 per hpf (0-3); Squamous Epithelial Cell,Urine Many per lpf (None-Few)
[2019-01-06 19:01] LABS: Digoxin 1.7 ng/mL (0.8-2.0)
[2019-01-06 19:08] LABS: Yeast,Urine Few per hpf (None Seen)
[2019-01-07] MEDS ORDERED: Naloxone 0.4 MG/ML INJ IVP PRN (01:27)
--- NOTE | 2019-01-07 01:36 | Internal Med History&Physical ---
Date of Encounter: 01/07/19 Time of Encounter: 00:40 Internal Medicine - H&P: HPI Chief complaint: Weakness Admitted From: Emergency Dept Plans for Post Hospital Care: Home History of present illness: Ms. Rodarte is a 73 year old female Patient presented to the emergency department from home for weakness and altered mental status. She is a hospice patient due to worsening pulmonary and renal function. She also has heart failure. Her daughter who is at bedside is her primary rod finisher and states that about a day and a half ago the patient began having increased shortness of breath and decreased urination. She is also a bit more confused. She did improve as the day progressed however the following day when the patient was awoken at around 9 AM. Patient was very weak and the daughter had issues getting her to the bathroom. The patient does have hospice care, and has a hospice nurse come and visit once a week and then basilars coming to the home to assist 2 times a week. Because she was not improving, the daughter called the hospice nurse who then recommended they call an ambulance. The patient's daughters also states that he has noticed that the patient has had a left sided lean over the last day as well. He was concerned that perhaps the patient had a stroke. In the emergency department patient initial vital signs: Temperature 98.6, pulse 82, respiration 16, blood pressure 119/63, O2 saturation 99% on 3 L. CBC: White count 13.8, otherwise unremarkable. BMP: Notable for a sodium of 132, BUN of 40, creatinine of 2.33. Urinalysis: 30 protein, moderate blood, 3-5 white cells, many squamous cells. Digoxin level I.7. Chest x-ray was ordered, and showed mild congestive heart failure. In the emergency department the patient's family confirmed that the patient is DNR CC. The patient was admitted to the hospital with anticipation to be seen by palliative care. Upon my evaluation, patient is resting comfortably in the hospital bed in no acute distress. The patient's daughter and son-in-law are at bedside. Their main concerns include possible dehydration and possible stroke. They understand that the patient is hospice, and agreed to meet with palliative care in the morning. They would however like to know if the patient did indeed have a stroke. I explained to them that while we could obtain imaging, there would be little for us to be able to do at this point since she is outside in the interventional window. They still agreed to pursue an MRI. They also would li ke the patient evaluated by physical therapy and occupational therapy. They would like the patient to return back to her baseline, but understand that this is probably unlikely. Also requested the patient have IV fluids, as well as breathing treatments as needed. Past Med Surg Social Fam HX - Past Medical History Medical history: arthritis, atrial fibrillation, CHF, COPD, coronary artery disease, diabetes, hypertension, myocardial infarction Additional medical history: Type II Diabetic Psychiatric history: anxiety, depression - Past Surgical History Surgical History: angioplasty/stent, coronary bypass (CABG), hysterectomy, pacemaker/AICD Additional surgical history: lower back surgery in 02/2013. 1 cardiac stent - Social History Smoking Status: Current every day smoker Smokeless Tobacco Status: No Alcohol use: none Drug use: none - Family History Father Adopted: No Family Member Ethnicity: Non- Living Status: Hx Family Cardiac Disorders: Yes ([place]) Hx Family Respiratory Disorders: No Hx Family Cancer: No Hx Family GI Disorders: No Hx Family Endocrine Disorder: No Hx Family Neuromuscular Disorders: No Hx Family Neurologic Disorders: No Hx Family HEENT Disorders: No Hx Family Autoimmune Disorders: No Mother Family Member Ethnicity: Non- Living Status: Hx Family Cardiac Disorders: Yes (Afib, CAD, HF) Hx Family Endocrine Disorder: Yes (DM) Brother Family Member Ethnicity: Non- Living Status: Sister Family Member Ethnicity: Non- Living Status: Internal Medicine - H&P: Meds Apixaban [Eliquis] 5 mg PO BID 08/04/16 [History] Clopidogrel [Plavix] 75 mg PO QAM 08/04/16 [History] Ferrous Sulfate 325 mg PO QAM 08/04/16 [History] Oxygen 3 - 5 l NS AD 12/06/16 [History] Digoxin [Lanoxin] 0.125 mg PO MOWEFR 02/04/17 [History] Sennosides [Senna] 8.6 mg PO DAILY PRN 02/04/17 [History] Ipratropium/Albuterol Neb [Duoneb] 3 ml IH Q6HR 02/27/17 [History] Furosemide [Lasix] 40 mg PO QAM 03/13/17 [History] metFORMIN [Glucophage] 500 mg PO QAM 07/11/17 [History] Potassium Chloride 10 meq PO DAILY #30 tab.er.prt 07/15/17 [Rx] Insulin DETEMIR [Levemir] 20 unit SQ HS 09/05/17 [History] Spironolactone [Aldactone] 25 mg PO DAILY 09/05/17 [History] Acetaminophen/Diphenhydramine [Acetaminophen Pm Caplet] 1 tab PO HS 11/22/17 [History] Fluticasone/Salmeterol [Advair 500-50 Diskus] 1 puff IH BID 11/22/17 [History] Metoprolol Succinate [Toprol Xl] 25 mg PO DAILY 11/22/17 [History] Pravastatin Sodium [Pravachol] 80 mg PO HS 11/22/17 [History] Aspirin [Lo-Dose Aspirin EC] 81 mg PO DAILY 11/23/17 [History] Tramadol HCl [Ultram] 50 mg PO TID 11/23/17 [History] Gabapentin [Neurontin] 200 mg PO TID 01/06/19 [History] amLODIPine [Norvasc] 5 mg PO DAILY 01/06/19 [History] traZODone [TraZODone] 100 mg PO HS 01/06/19 [History] Allergy/AdvReac Type Severity Reaction Status Date / Time bupropion [From Wellbutrin] Allergy Swelling Verified 09/05/17 17:06 of Lip/Tongue/Throat Sulfa (Sulfonamide Allergy Hives Verified 09/05/17 17:06 Antibiotics) Varenicline [From Chantix] Allergy Swelling Verified 09/05/17 17:06 of Lip/Tongue/Throat Iodinated Contrast- Oral and AdvReac See Verified 09/05/17 17:06 IV Dye Comments [Iodinated Contrast Media - Oral and] lidocaine AdvReac Hives Verified 09/05/17 17:06 tape Allergy Hives Uncoded 04/11/17 12:53 All Systems PM: A 10-system review of systems was performed and is negative for pertinent findings except as documented above in the HPI. - Constitutional Vitals: Temp Pulse Resp BP Pulse Ox 99.4 F 97 18 119/61 94 01/06/19 22:27 01/06/19 22:27 01/06/19 22:27 01/06/19 22:27 01/06/19 22:27 General appearance: Present: A&O X 1, pleasant, no acute distress. Absent: cooperative, answers questions appropriately Exam: Response to name, but does not answer other questions. Follows some commands. - Head Head exam: Present: normal inspection - Eye Eye exam: Present: normal appearance Additional comments: Patient would not follow commands - Neck Neck exam general surgery: Absent: full ROM - Respiratory Respiratory exam: Present: CTAB. Absent: rales, respiratory distress, rhonchi, wheezes - Cardiovascular Cardiovascular exam: Present: RRR. Absent: diastolic murmur, systolic murmur - GI/Abdominal GI/Abdominal exam: Present: normal bowel sounds, soft. Absent: tenderness - Extremities Exam Extremities exam: Present: warm, radial pulses palpable and symmetrical. Absent: calf tenderness, pedal edema, tenderness - Neurological Exam Additional comments: Could not assess due to patient condition - Skin Skin exam: Present: dry, normal color, warm Internal Med - H&P Results - Labs CBC & Chem 7: 01/06/19 18:10 01/06/19 18:10 Labs: Short CBC 01/06/19 Range/Units 18:10 WBC 15.8 H (4.3-11.1) K/mcL Hgb 11.5 (11.5-15.4) g/dL Hct 35.8 (35.3-44.9) % Plt Count 208 (140-400) K/mcL Neutrophils # 13.5 H (1.6-8.9) K/mcL BMP 01/06/19 18:10 Sodium 132 L Potassium 4.6 Chloride 95 L Carbon Dioxide 29 BUN 40 H Creatinine 2.33 H Glucose 96 Calcium 9.2 Urine 01/06/19 Range/Units 18:33 Urine Color Yellow (Yellow) Urine Clarity Cloudy A (Clear) Urine pH 5.0 (5.0-8.0) pH Units Ur Specific [place] 1.018 (1.010-1.025) Urine Protein 30 H (Neg-Trace) mg/dL Urine Glucose (UA) Normal (Normal) mg/dL - Impressions ITS Impressions Chest X-Ray 01/06/19 17:34 IMPRESSION: Mild congestive heart failure. D/ / Vicki Whitney MD / Vicki Whitney MD Interpreting Provider: Vicki Whitney MD - Assessment and Plan (1) Confusion Current Visit: Yes Status: Acute Assessment and plan: Worsening confusion over the last 1-2 days. Possibly secondary to cerebrovascu lar accident. Patient is a hospice patient, with baseline kidney, heart and pulmonary disease. Family requested the patient be evaluated with MRI and physical/occupational therapy. They also would like to pursue palliative care consultation. (2) Weakness Current Visit: Yes Status: Acute Assessment and plan: Weakness over the last 1-2 days. Possibly secondary to a CVA. Family wished to pursue MRI, with the understanding that further intervention would not likely be possible. PT OT consult MRI in the morning Palliative care consult (3) TREY (acute kidney injury) Current Visit: No Status: Acute Assessment and plan: Chronic kidney disease stage IV at baseline. Patient has a elevating creatinine with recent lab work. Family agreed to no longer pursue further lab work however they did want to give IV fluids. Continue IV fluid hydration (4) Tobacco abuse Current Visit: No Status: Chronic Assessment and plan: Patient still smokes about a pack a day normally at home Nicotine patch as needed (5) Atrial fibrillation Current Visit: No Status: Chronic Assessment and plan: Patient takes metoprolol, digoxin and Eliquis at home. Continue home meds Qualifiers: Atrial fibrillation type: chronic Qualified Code(s): I48.2 - Chronic atrial fibrillation (6) Type 2 diabetes mellitus Current Visit: No Status: Chronic Assessment and plan: Patient is an insulin dependent diabetic Monitor sugars ACHS Cardiac diet Low dose insulin sliding scale as needed Hold home meds. Qualifiers: Diabetes mellitus watermaster insulin use: with chcf use Diabetes mellitus complication status: with kidney complications Diabetes mellitus complication detail: with chronic kidney disease Chronic kidney disease stage: stage 3 (moderate) Qualified Code(s): E11.22 - Type 2 diabetes mellitus with diabetic chronic kidney disease; N18.3 - Chronic kidney disease, stage 3 (moderate); Z79.4 - [facility] (current) use of insulin (7) DVT prophylaxis Current Visit: No Status: Chronic Assessment and plan: Continue home Eliquis - Time Spent With Patient Total time spent is greater than 50% in coordination of care (as documented) at patient's floor/unit and/or counseling patient: Greater than 35 minutes
[2019-01-07] MEDS ORDERED: Albuterol 2.5 MG/3 ML NEBULIZER IH PRN (03:16)
[2019-01-07] MEDS ORDERED: *HR* Dextrose 50 % in Water (Syg) 50 ML SYRINGE IVP PRN (03:26)
[2019-01-07] MEDS ORDERED: D5% in Water 1,000 ML IVC PRN (03:26)
[2019-01-07] MEDS ORDERED: Dextrose Gel 15 GM/37.5 ML TUBE PO PRN ×2 (03:26)
[2019-01-07] MEDS ORDERED: Sennosides 8.6 MG TABLET PO PRN (03:30)
[2019-01-07] MEDS: 0.9 % Sodium Chloride 1,000 ML IVC SCH ×2 (03:55→12:53)
[2019-01-07] MEDS: Ipratropium/Albuterol Neb 3 ML IH SCH ×4 (04:04→22:04)
[2019-01-07] MEDS ORDERED: Acetaminophen 325 MG TABLET PO PRN ×2 (05:02→10:49)
[2019-01-07] MEDS: Aspirin Enteric Coated 81 MG Tablet PO SCH (09:28)
[2019-01-07] MEDS: Apixaban 5 MG TABLET PO SCH ×2 (09:29→20:15)
[2019-01-07] MEDS: Nicotine 21 MG PATCH.TD24 TD PRN (09:29)
[2019-01-07] MEDS: Gabapentin 100 MG CAPSULE PO SCH ×3 (09:29→20:15)
[2019-01-07] MEDS: Metoprolol XL (24 HR) Succ 25 MG TAB.ER.24H PO SCH (09:30)
[2019-01-07] MEDS ORDERED: traMADol 50 MG TABLET PO PRN (09:57)
--- NOTE | 2019-01-07 11:43 | Event Note ---
Date of Encounter: 01/07/19 Time of Encounter: 07:30 No acute events since time of admission and my encounter. Patient's daughter is attempting to find card for her defibrillator and stents so we can determine compatibility with MRI. We will continue to monitor.
[2019-01-07] MEDS: Insulin LISPRO 300 UNITS/3 ML VIAL SQ SCH ×4 (12:54→21:35)
--- NOTE | 2019-01-07 14:06 | Palliative - Consult Note ---
Date of Encounter: 01/07/19 Time of Encounter: 14:00 - Assessment and Plan (1) Dyspnea Current Visit: No Status: Acute Assessment and plan: Patient states improved at present. Oxygen remains in place. Bronchodilators ordered as per home. MOnitor. I am not sure if she utilizes any opioids for breathing at home. Does not appear on home med list. Will ask family when available. Qualifiers: Dyspnea type: unspecified Qualified Code(s): R06.00 - Dyspnea, unspecified (2) Confusion Current Visit: Yes Status: Acute Assessment and plan: MRI pending - supposed to be completed tomorrow. Family was to obtain information on her AICD device. (3) Goals of care, counseling/discussion Current Visit: Yes Status: Acute Assessment and plan: Patient is care for by [facility] at home. During my visit, no family is at bedside. She is alert and oriented to name and place, but makes inappropriate statements at times. She has difficulty telling me children's names and ages. She speaks of a new "small black soni" in the home that they are caring for. She is able to tell me that [facility] helps with her care at home. Will continue to follow and meet with daughter to discuss goals of care. Nursing reports that daughter did desire MRI to r/o CVA. (4) Palliative care encounter Current Visit: Yes Status: Acute (5) COPD exacerbation Current Visit: No Status: Acute (6) Acute and chronic respiratory failure Current Visit: No Status: Resolved Qualifiers: Respiratory failure complication: hypoxia Qualified Code(s): J96.21 - Acute and chronic respiratory failure with hypoxia Palliative-CN HPI - Data of Consult Requesting Physician: Nikki Carter MD Primary Care Provider: Hal Monroy MD - Consult Narrative History of present illness: Ms. Rodarte is a 73 year old female who is enrolled in [facility] at home, presented with increase in shortness of breath that started 2-3 days prior to admission, as well as increasing confusion and weakness. Daughter is caregiver, not present during my visit. Patient is confused and unable to provide much history to me, so much information taken from chart review and nursing at bedside. Per review, daughter called hospice nurse with patient complaints and it was recommended they call an ambulance. Vitals were stable upon arrival. Sodium was 132, BUN 40, and Cr 2.33. She has history of CHF, CAD, Chronic ki dney disease. Upon my visit, patient is confused. Can tell me her name and . Has difficulty with answering history questions. Does deny pain, states breathing is "so-so". Denies n/v, anxiety, constipation. No family is present. CC: Nikki aCrter MD - Time Spent with Patient Time: Total time spent is greater than 50% in coordination of care (as documented) at patient's floor/unit and/or counseling patient: Past Med Surg Social Fam HX - Past Medical History Medical history: arthritis, atrial fibrillation, CHF, COPD, coronary artery disease, diabetes, hypertension, myocardial infarction Additional medical history: Type II Diabetic Psychiatric history: anxiety, depression - Past Surgical History Surgical History: angioplasty/stent, coronary bypass (CABG), hysterectomy, pacemaker/AICD Additional surgical history: lower back surgery in 02/2013. 1 cardiac stent - Social History Smoking Status: Current every day smoker Smokeless Tobacco Status: No Alcohol use: none Drug use: none - Family History Father Adopted: No Family Member Ethnicity: Non- Living Status: Hx Family Cardiac Disorders: Yes (MS) Hx Family Respiratory Disorders: No Hx Family Cancer: No Hx Family GI Disorders: No Hx Family Endocrine Disorder: No Hx Family Neuromuscular Disorders: No Hx Family Neurologic Disorders: No Hx Family HEENT Disorders: No Hx Family Autoimmune Disorders: No Mother Family Member Ethnicity: Non- Living Status: Hx Family Cardiac Disorders: Yes (Afib, CAD, HF) Hx Family Endocrine Disorder: Yes (DM) Brother Family Member Ethnicity: Non- Living Status: Sister Family Member Ethnicity: Non- Living Status: Medications and Allergies Apixaban [Eliquis] 5 mg PO BID 08/04/16 [History] Clopidogrel [Plavix] 75 mg PO QAM 08/04/16 [History] Ferrous Sulfate 325 mg PO QAM 08/04/16 [History] Oxygen 3 - 5 l NS AD 12/06/16 [History] Digoxin [Lanoxin] 0.125 mg PO MOWEFR 02/04/17 [History] Sennosides [Senna] 8.6 mg PO DAILY PRN 02/04/17 [History] Ipratropium/Albuterol Neb [Duoneb] 3 ml IH Q6HR 02/27/17 [History] Furosemide [Lasix] 40 mg PO QAM 03/13/17 [History] metFORMIN [Glucophage] 500 mg PO QAM 07/11/17 [History] Potassium Chloride 10 meq PO DAILY #30 tab.er.prt 07/15/17 [Rx] Insulin DETEMIR [Levemir] 20 unit SQ HS 09/05/17 [History] Spironolactone [Aldactone] 25 mg PO DAILY 09/05/17 [History] Acetaminophen/Diphenhydramine [Acetaminophen Pm Caplet] 1 tab PO HS 11/22/17 [History] Fluticasone/Salmeterol [Advair 500-50 Diskus] 1 puff IH BID 11/22/17 [History] Metoprolol Succinate [Toprol Xl] 25 mg PO DAILY 11/22/17 [History] Pravastatin Sodium [Pravachol] 80 mg PO HS 11/22/17 [History] Aspirin [Lo-Dose Aspirin EC] 81 mg PO DAILY 11/23/17 [History] Tramadol HCl [Ultram] 50 mg PO TID 11/23/17 [History] Gabapentin [Neurontin] 200 mg PO TID 01/06/19 [History] amLODIPine [Norvasc] 5 mg PO DAILY 01/06/19 [History] traZODone [TraZODone] 100 mg PO HS 01/06/19 [History] Allergy/AdvReac Type Severity Reaction Status Date / Time bupropion [From Wellbutrin] Allergy Swelling Verified 09/05/17 17:06 of Lip/Tongue/Throat Sulfa (Sulfonamide Allergy Hives Verified 09/05/17 17:06 Antibiotics) Varenicline [From Chantix] Allergy Swelling Verified 09/05/17 17:06 of Lip/Tongue/Throat Iodinated Contrast- Oral and AdvReac See Verified 09/05/17 17:06 IV Dye Comments [Iodinated Contrast Media - Oral and] lidocaine AdvReac Hives Verified 09/05/17 17:06 tape Allergy Hives Uncoded 04/11/17 12:53 ROS unobtainable: due to mental status Palliative Care-Exam - Constitutional Vitals: Temp Pulse Resp BP Pulse Ox 98.0 F 79 16 108/59 92 01/07/19 11:17 01/07/19 11:17 01/07/19 11:17 01/07/19 11:17 01/07/19 11:17 General appearance: Present: cooperative, no acute distress. Absent: febrile - Head Head Exam: Present: normal inspection, normocephalic - Respiratory Respiratory exam: Present: decreased breath sounds Additional comments: Faint expiratory wheezed throughout - Cardiovascular Cardiovascular exam: Present: irregular rhythm - GI/Abdominal Exam GI/Abdominal exam: Present: normal bowel sounds, soft. Absent: distended, guarding - Extremities Exam Extremities exam: Present: normal capillary refill, normal inspection - Neurological Exam Neurological exam: Present: alert Additional comments: Oriented to name and place, reoriented to time and situation. Inappropriate statements at time. Has difficulty recalling children's names and ages. - Skin Skin exam: Present: dry, pallor, warm Internal Medicine - CN: Reslt - Labs CBC & Chem 7: 01/06/19 18:10 01/06/19 18:10 Labs: Short CBC 01/06/19 Range/Units 18:10 WBC 15.8 H (4.3-11.1) K/mcL Hgb 11.5 (11.5-15.4) g/dL Hct 35.8 (35.3-44.9) % Plt Count 208 (140-400) K/mcL Neutrophils # 13.5 H (1.6-8.9) K/mcL BMP 01/06/19 18:10 Sodium 132 L Potassium 4.6 Chloride 95 L Carbon Dioxide 29 BUN 40 H Creatinine 2.33 H Glucose 96 Calcium 9.2 Urine 01/06/19 Range/Units 18:33 Urine Color Yellow (Yellow) Urine Clarity Cloudy A (Clear) Urine pH 5.0 (5.0-8.0) pH Units Ur Specific [place] 1.018 (1.010-1.025) Urine Protein 30 H (Neg-Trace) mg/dL Urine Glucose (UA) Normal (Normal) mg/dL - Impressions Impressions Chest X-Ray 01/06/19 17:34 IMPRESSION: Mild congestive heart failure. D/ / Vicki Whitney MD / Vicki Whitney MD Interpreting Provider: Vicki Whitney MD Consult Discharge Plan - Plan Referrals: Hal Monroy MD [Primary Care Provider] - Palliative Quality Palliative Quality: Screen for Code Status: Yes (Already documented DNRCC), S creen for Goals of Care: NA (no family present), Screen for Pain: Yes, If Pain Regimen Started, Initiate Bowel Regimen: NA, Screen for Nausea/Vomitting: Yes Code Status: 01/07/19 01:27 Resuscitation Status: Active [RES] Routine Comment: Resuscitation Status: DNR-Comfort Care
[2019-01-07] MEDS ORDERED: Furosemide 40 MG/4 ML VIAL IVP ONE (15:35)
--- NOTE | 2019-01-07 16:18 | Event Note ---
Date of Encounter: 01/07/19 Time of Encounter: 16:00 Met with patient's daughter MELLY Kim. Judy states that patient has been enrolled in [facility] and has had 2 respite stays recently at [facility]. She is overwhelmed by her mother's decline and still desires MRI to evaluate for stroke. She also stated that if negative for stroke, she desired her evaluated for Parkinson's disease. I discussed with her that many of her mother's symptoms, including the increasing weakness, decreased appetite, increasing confusion, and increased shortness of breath are symptoms frequently seen as patient's are closer to end of life. Daughter became very emotional and tearful stating she was not ready to let her go yet. She did state that her mother has been seeing and speaking with her mother. Discussed daughter's ability to care for patient at home. States she is struggling some. Discussed ECF placement - but discussed that [facility] placement would be private pay, that her insurance likely would only cover a skilled level of care, and pt may not be able to tolerate that aggressive therapy. She verbalized understanding. Will d/w social work in am and f/u with daughter as well. D/W Dr. Carter.
[2019-01-07] MEDS ORDERED: Acetaminophen 325 MG TABLET PO SCH (21:00)
[2019-01-07] MEDS ORDERED: Morphine Sulfate Oral CONC 10 MG/0.5 ML ORAL.SYG PO PRN (21:40)
[2019-01-07] MEDS ORDERED: *HR* LORazepam 0.5 MG TABLET PO PRN (21:40)
[2019-01-08] MEDS: Ipratropium/Albuterol Neb 3 ML IH SCH ×4 (04:21→21:55)
--- NOTE | 2019-01-08 08:11 | Internal Med Progress Note ---
Hospitalist Progress Note - Encounter Date of Encounter: 01/08/19 Time of Encounter: 09:00 - Subjective Interval History: No acute events overnight - Exam Vitals: Temp Pulse Resp BP Pulse Ox 98.8 F 96 20 147/76 94 01/08/19 07:15 01/08/19 07:15 01/08/19 07:15 01/08/19 07:15 01/08/19 07:15 Exam: General appearance: Present: A&O X 3, no acute distress Head exam: Present: normocephalic Respiratory exam: Present: CTAB. Absent: accessory muscle use, rales, rhonchi, wheezes Cardiovascular exam: Present: RRR, +S1, +S2. Absent: diastolic murmur, gallop, rubs, systolic murmur GI/Abdominal exam: Soft, NT, ND, +BS Extremities exam: Absent: pedal edema Neurological exam: Alert to person and place - Assessment and Plan (1) Acute and chronic respiratory failure Current Visit: Yes Status: Acute Assessment and Plan: Pt has hypoxic respiratory failure requiring up to 8L of oxygen via facem mask to keep sats above 93% Likely 2/2 to acute worsening of chronic diastolic CHF continue lasix, obatin ABG and ct chest without contrast (2) Diastolic CHF, acute on chronic Current Visit: Yes Status: Acute Assessment and Plan: Pt has acute worsening of chronic diastolic CHF Diurese with lasix as tolerated (3) Atrial fibrillation Current Visit: Yes Status: Chronic Assessment and Plan: Patient takes metoprolol, digoxin and Eliquis at home. Continue home meds (4) Type 2 diabetes mellitus Current Visit: Yes Status: Chronic Assessment and Plan: Patient is an insulin dependent diabetic Monitor sugars ACHS Cardiac diet Low dose insulin sliding scale as needed Hold home meds. (5) Confusion Current Visit: Yes Status: Acute Assessment and Plan: Worsening confusion over the last 1-2 days. Possibly secondary to cerebrovascular accident. Patient is a hospice patient, with baseline kidney, heart and pulmonary disease. Obtain MRI head to r/o stroke. Palliative care on board for return to hospice (6) Weakness Current Visit: Yes Status: Acute Assessment and Plan: Weakness over the last 1-2 days. Possibly secondary to a CVA. Family wished to pursue MRI, with the understanding that further intervention would not likely be possible. PT OT consult MRI in the morning Palliative care consult (7) TREY (acute kidney injury) Current Visit: Yes Status: Acute Assessment and Plan: Monitor creatinine with diuresis (8) Tobacco abuse Current Visit: Yes Status: Chronic Assessment and Plan: Patient still smokes about a pack a day normally at home Nicotine patch as needed (9) DVT prophylaxis Current Visit: Yes Status: Chronic Assessment and Plan: Continue home Eliquis - Time Spent with Patient Total time spent is greater than 50% in coordination of care (as documented) at patient's floor/unit and/or counseling patient: Internal Medicine: Result - Labs CBC & Chem 7: 01/08/19 12:19 01/08/19 12:19 Consult Discharge Plan - Plan Referrals: Hal Monroy MD [Primary Care Provider] - (1) Acute and chronic respiratory failure Qualifiers: Respiratory failure complication: unspecified whether with hypoxia or hypercapnia Qualified Code(s): J96.20 - Acute and chronic respiratory failure, unspecified whether with hypoxia or hypercapnia (3) Atrial fibrillation Qualifiers: Atrial fibrillation type: chronic Qualified Code(s): I48.2 - Chronic atrial fibrillation (4) Type 2 diabetes mellitus Qualifiers: Diabetes mellitus machine long goods helper insulin use: with machine long goods helper use Diabetes mellitus complication status: with kidney complications Diabetes mellitus complication detail: with chronic kidney disease Chronic kidney disease stage: stage 3 (moderate) Qualified Code(s): E11.22 - Type 2 diabetes mellitus with diabetic chronic kidney disease; N18.3 - Chronic kidney disease, stage 3 (moderate); Z79.4 - senior living (current) use of insulin
[2019-01-08] MEDS ORDERED: Morphine Sulfate Oral CONC 10 MG/0.5 ML ORAL.SYG PO PRN (08:26)
[2019-01-08] MEDS ORDERED: traMADol 50 MG TABLET PO PRN (08:26)
[2019-01-08] MEDS ORDERED: Acetaminophen 325 MG TABLET PO PRN (08:26)
[2019-01-08] MEDS ORDERED: *HR* Digoxin 0.125 MG TABLET PO SCH (09:00)
[2019-01-08] MEDS: Metoprolol XL (24 HR) Succ 25 MG TAB.ER.24H PO SCH (09:27)
[2019-01-08] MEDS: Apixaban 5 MG TABLET PO SCH ×2 (09:28→20:39)
[2019-01-08] MEDS: Aspirin Enteric Coated 81 MG Tablet PO SCH (09:28)
[2019-01-08] MEDS: Gabapentin 100 MG CAPSULE PO SCH ×3 (09:28→20:28)
[2019-01-08] MEDS: Insulin LISPRO 300 UNITS/3 ML VIAL SQ SCH ×3 (09:29→17:37)
[2019-01-08] MEDS ORDERED: Furosemide 40 MG/4 ML VIAL IVP SCH (10:48)
[2019-01-08 12:37] LABS: Hematocrit 33.4 % (35.3-44.9); Hemoglobin 10.5 g/dL (11.5-15.4); Mean Corpuscular HGB Conc 31.4 g/dL (31.6-35.5); Mean Corpuscular Hemoglobin 29.2 pg (28.0-33.3); Mean Corpuscular Volume 92.8 fL (83.0-100.0); Platelet Count 222 K/mcL (140-400); Red Cell Distribution Width 13.8 % (11.5-14.5)
[2019-01-08 12:50] LABS: Calcium 8.8 mg/dL (8.6-10.3); Potassium 4.6 mEq/L (3.5-5.1)
[2019-01-08 13:24] LABS: Dohle Bodies Present (Not Present); Lymphocytes # 1.1 K/mcL (0.6-4.6); Monocytes # 1.3 K/mcL (0.0-1.3); Neutrophils # 9.6 K/mcL (1.6-8.9); Platelet Estimate Normal (Normal)
[2019-01-08 15:09] LABS: ABG Base Excess 2 mEq/L (-2 to 3); ABG HCO3 30 mEq/L (21-27); ABG Oxygen Saturation 96 % (95-98); ABG PCO2 67 mmHg (35-45); ABG PH 7.27 pH Units (7.32-7.45); ABG PO2 93 mmHg (85-104); ABG TCO2 32 mEq/L (20-26)
--- NOTE | 2019-01-08 15:33 | Palliative Progress Note ---
Date of Encounter: 01/08/19 Time of Encounter: 15:30 - Assessment and plan (1) Dyspnea Current Visit: No Status: Acute Assessment and plan: CT chest pending. Hypoxic last PM and febrile. Oxygen demand has increased. Monitor. Qualifiers: Dyspnea type: unspecified Qualified Code(s): R06.00 - Dyspnea, unspecified (2) Confusion Current Visit: Yes Status: Acute (3) Goals of care, counseling/discussion Current Visit: Yes Status: Acute Assessment and plan: D/W patient's daughter and POA, Judy. She is still awaiting test results, aware she was febrile during the night. She feels that patient "has pneumonia". Did discuss again that patient's status may still signify overall decline in her health and progression of disease, which she verbalizes understanding. She states that she is thinking about pursuing rehab placement at [facility], as she is having difficulty caring for her at home. She states if patient not accepted, that she cannot afford private pay and would take her home, but would "like hospice to do therapy with her". I did discuss that [facility] does provide that on case by case basis. Notified Dr. Munguia of the above. Will continue to follow. (4) Palliative care encounter Current Visit: Yes Status: Acute (5) COPD exacerbation Current Visit: No Status: Acute (6) Acute and chronic respiratory failure Current Visit: No Status: Resolved Qualifiers: Respiratory failure complication: hypoxia Qualified Code(s): J96.21 - Acute and chronic respiratory failure with hypoxia - Time Spent With Patient Total time spent is greater than 50% in coordination of care (as documented) at patient's floor/unit and/or counseling patient: less than 15 minutes - Subjective Interval history: Patient awake and alert. Oriented to name and place, disoriented to time and situation. - Constitutional Vitals: Abnormal lab results WBC 12.0 K/mcL (4.3-11.1) H 01/08/19 12:19 RBC 3.60 M/mcL (3.82-4.97) L 01/08/19 12:19 Hgb 10.5 g/dL (11.5-15.4) L 01/08/19 12:19 Hct 33.4 % (35.3-44.9) L 01/08/19 12:19 MCHC 31.4 g/dL (31.6-35.5) L 01/08/19 12:19 Band Neutrophils % 17.0 % (0-4) H 01/08/19 12:19 Neutrophils # 9.6 K/mcL (1.6-8.9) H 01/08/19 12:19 Monocytes # 1.5 K/mcL (0.0-1.3) H 01/06/19 18:10 Dohle Bodies Present (Not Present) A 01/08/19 12:19 ABG pH 7.27 pH Units (7.32-7.45) L 01/08/19 14:56 ABG pCO2 67 mmHg (35-45) H 01/08/19 14:56 ABG HCO3 30 mEq/L (21-27) H 01/08/19 14:56 ABG Total CO2 32 mEq/L (20-26) H 01/08/19 14:56 Sodium 130 mEq/L (136-145) L 01/08/19 12:19 Chloride 96 mEq/L (98-107) L 01/08/19 12:19 BUN 51 mg/dL (8-23) H 01/08/19 12:19 Creatinine 2.83 mg/dL (0.60-1.20) H 01/08/19 12:19 Est GFR ( Amer) 20 (> 60) L 01/08/19 12:19 Est GFR (Non-Af Amer) 16 (> 60) L 01/08/19 12:19 Glucose 172 mg/dL (70-105) H 01/08/19 12:19 POC Glucose 165 mg/dL (70-99) H 01/07/19 20:08 Urine Clarity Cloudy (Clear) A 01/06/19 18:33 Urine Protein 30 mg/dL (Neg-Trace) H 01/06/19 18:33 Urine Blood Moderate (Negative) H 01/06/19 18:33 Urine Microscopic WBC 3-5 per hpf (0-3) H 01/06/19 18:33 Ur Squamous Epith Cells Many per lpf (None-Few) H 01/06/19 18:33 Urine Yeast Few per hpf (None Seen) H 01/06/19 18:33 General appearance: Present: no acute distress - Respiratory Respiratory exam: Present: decreased breath sounds Additional comments: Inspiratory crackles throughout all lung steel - Cardiovascular Cardiovascular exam: Present: irregular rhythm - GI/Abdominal GI/Abdominal exam: Present: normal bowel sounds, soft - Extremities Exam Extremities exam: Present: normal capillary refill, normal inspection - Neurological Exam Neurological exam: Present: alert, altered - Skin Skin exam: Present: dry, pallor, warm Palliative Quality Palliative Quality: Screen for Code Status: Yes (Already documented DNRCC), Screen for Goals of Care: NA (no family present), Screen for Pain: Yes, If Pain Regimen Started, Initiate Bowel Regimen: NA, Screen for Nausea/Vomitting: Yes Code Status: 01/07/19 01:27 Resuscitation Status: Active [RES] Routine Comment: Resuscitation Status: DNR-Comfort Care - Labs CBC & Chem 7: 01/08/19 12:19 01/08/19 12:19 Labs: Laboratory Results - last 24 hr 01/07/19 01/07/19 01/07/19 11:55 16:10 20:08 WBC RBC Hgb Hct MCV MCH MCHC RDW Plt Count MPV Seg Neutrophils % Band Neutrophils % Lymphocytes % Monocytes % Neutrophils # Lymphocytes # Monocytes # Dohle Bodies Platelet Estimate ABG pH ABG pCO2 ABG pO2 ABG HCO3 ABG Total CO2 ABG O2 Saturation ABG Base Excess O2 Delivery Device Inspired O2 Sodium Potassium Chloride Carbon Dioxide BUN Creatinine Est GFR ( Amer) Est GFR (Non-Af Amer) BUN/Creatinine Ratio Glucose POC Glucose 164 H 139 H 165 H Calculated Osmolality Calcium 01/08/19 01/08/19 01/08/19 12:19 12:19 14:56 WBC 12.0 H RBC 3.60 L Hgb 10.5 L Hct 33.4 L MCV 92.8 MCH 29.2 MCHC 31.4 L RDW 13.8 Plt Count 222 MPV 11.0 Seg Neutrophils % 63.0 Band Neutrophils % 17.0 H Lymphocytes % 9.0 Monocytes % 11.0 Neutrophils # 9.6 H Lymphocytes # 1.1 Monocytes # 1.3 Dohle Bodies Present A Platelet Estimate Normal ABG pH 7.27 L ABG pCO2 67 H ABG pO2 93 ABG HCO3 30 H ABG Total CO2 32 H ABG O2 Saturation 96 ABG Base Excess 2 O2 Delivery Device Oxy Mask Inspired O2 8.0 Sodium 130 L Potassium 4.6 Chloride 96 L Carbon Dioxide 24 BUN 51 H Creatinine 2.83 H Est GFR ( Amer) 20 L Est GFR (Non-Af Amer) 16 L BUN/Creatinine Ratio 18 Glucose 172 H POC Glucose Calculated Osmolality 288 Calcium 8.8 - Impressions Impressions Brain MRI 01/08/19 01:30 IMPRESSION: 1. No acute intracranial abnormality. No acute infarct. 2. 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 3. Mild global parenchymal volume loss with moderate chronic microvascular ischemic changes. 4. Bilateral mastoid effusions. D/ / Ashok Giron MD / Ashok Giron MD Interpreting Provider: Ashok Giron MD Chest CT 01/08/19 10:57 IMPRESSION: Extensive scattered bilateral asymmetric airspace disease with small effusions. Findings are presumed infectious in origin. Continued radiographic follow-up recommended to assure resolution. Extensive bilateral bronchiolitis. Cardiomegaly, post median sternotomy. Indeterminate right paratracheal lymph nodes likely reactive. Left thyroid lobe nodule 1.2 cm. No imaging follow up recommended. D/ / 01/08/2019 14:03:40 Roe Izaguirre MD / marcelo Interpreting Provider: Roe Izaguirre MD - ABG Interpretation ABG results: ABG ABG pH 7.27 pH Units (7.32-7.45) L 01/08/19 14:56 ABG pCO2 67 mmHg (35-45) H 01/08/19 14:56 ABG pO2 93 mmHg (85-104) 01/08/19 14:56 ABG O2 Saturation 96 % (95-98) 01/08/19 14:56 Consult Discharge Plan - Plan Referrals: Hal Monroy MD [Primary Care Provider] -
[2019-01-08] MEDS ORDERED: Azithromycin 500 MG in 0.9 % Sodium Chloride 250 ML IVPB SCH (17:00)
[2019-01-08] MEDS: MethylPREDNISolone 40 MG/ML VIAL IVP SCH (17:34)
[2019-01-08] MEDS: Nicotine 21 MG PATCH.TD24 TD PRN (17:35)
[2019-01-08] MEDS: cefTRIAXone 1,000 MG in Water for inj. (sterile) 10 ML IVP SCH (17:35)
[2019-01-09] MEDS: MethylPREDNISolone 40 MG/ML VIAL IVP SCH ×2 (00:05→08:00)
[2019-01-09] MEDS: Insulin LISPRO 300 UNITS/3 ML VIAL SQ SCH ×3 (00:06→11:30)
[2019-01-09] MEDS: Ipratropium/Albuterol Neb 3 ML IH SCH ×3 (03:36→15:21)
[2019-01-09 05:16] LABS: Hematocrit 33.8 % (35.3-44.9); Hemoglobin 10.5 g/dL (11.5-15.4); Mean Corpuscular HGB Conc 31.1 g/dL (31.6-35.5); Mean Corpuscular Hemoglobin 29.1 pg (28.0-33.3); Mean Corpuscular Volume 93.6 fL (83.0-100.0); Mean Platelet Volume 10.9 fL (9.4-12.4); Platelet Count 241 K/mcL (140-400); Red Blood Count 3.61 M/mcL (3.82-4.97); Red Cell Distribution Width 13.7 % (11.5-14.5); White Blood Count 10.9 K/mcL (4.3-11.1)
[2019-01-09 05:36] LABS: Calcium 8.9 mg/dL (8.6-10.3); Magnesium 2.3 mg/dL (1.6-2.6); Phosphorous 5.5 mg/dL (2.7-4.5); Potassium 4.5 mEq/L (3.5-5.1)
[2019-01-09 05:53] LABS: Lymphocytes # 0.7 K/mcL (0.6-4.6)
[2019-01-09 05:54] LABS: Anisocytosis 1+ (Not Present); Platelet Estimate Normal (Normal)
--- NOTE | 2019-01-09 07:54 | Internal Med Progress Note ---
Hospitalist Progress Note - Encounter Date of Encounter: 01/09/19 - Exam Vitals: Temp Pulse Resp BP Pulse Ox 97.3 F L 80 18 136/79 96 01/09/19 07:21 01/09/19 07:21 01/09/19 07:21 01/09/19 07:21 01/09/19 07:21 Exam: General appearance: Present: A&O X 3, no acute distress Head exam: Present: normocephalic Respiratory exam: Present: CTAB. Absent: accessory muscle use, rales, rhonchi, wheezes Cardiovascular exam: Present: RRR, +S1, +S2. Absent: diastolic murmur, gallop, rubs, systolic murmur GI/Abdominal exam: Soft, NT, ND, +BS Extremities exam: Absent: pedal edema Neurological exam: Alert to person and place - Assessment and Plan (1) Acute and chronic respiratory failure Current Visit: Yes Status: Acute Assessment and Plan: Pt has hypoxic respiratory failure requiring up to 8L of oxygen via face mask to keep sats above 93% Likely 2/2 to acute worsening of chronic diastolic CHF continue lasix, obatin ABG and ct chest without contrast (2) Diastolic CHF, acute on chronic Current Visit: Yes Status: Acute Assessment and Plan: Pt has acute worsening of chronic diastolic CHF Diurese with lasix as tolerated (3) Atrial fibrillation Current Visit: Yes Status: Chronic Assessment and Plan: Patient takes metoprolol, digoxin and Eliquis at home. Continue home meds (4) Type 2 diabetes mellitus Current Visit: Yes Status: Chronic Assessment and Plan: Patient is an insulin dependent diabetic Monitor sugars ACHS Cardiac diet Low dose insulin sliding scale as needed Hold home meds. (5) Confusion Current Visit: Yes Status: Acute Assessment and Plan: Worsening confusion over the last 1-2 days. Possibly secondary to cerebrovascular accident. Patient is a hospice patient, with baseline kidney, heart and pulmonary disease. Obtain MRI head to r/o stroke. Palliative care on board for return to hospice (6) Weakness Current Visit: Yes Status: Acute Assessment and Plan: Weakness over the last 1-2 days. Possibly secondary to a CVA. Family wished to pursue MRI, with the understanding that further intervention would not likely be possible. PT OT consult MRI in the morning Palliative care consult (7) TREY (acute kidney injury) Current Visit: Yes Status: Acute Assessment and Plan: Monitor creatinine with diuresis (8) Tobacco abuse Current Visit: Yes Status: Chronic Assessment and Plan: Patient still smokes about a pack a day normally at home Nicotine patch as needed (9) DVT prophylaxis Current Visit: Yes Status: Chronic Assessment and Plan: Continue home Eliquis - Time Spent with Patient Total time spent is greater than 50% in coordination of care (as documented) at patient's floor/unit and/or counseling patient: Internal Medicine: Result - Labs CBC & Chem 7: 01/09/19 04:47 01/09/19 04:47 Labs: Short CBC 01/08/19 01/09/19 Range/Units 12:19 04:47 WBC 12.0 H 10.9 (4.3-11.1) K/mcL Hgb 10.5 L 10.5 L (11.5-15.4) g/dL Hct 33.4 L 33.8 L (35.3-44.9) % Plt Count 222 241 (140-400) K/mcL Neutrophils # 9.6 H 10.0 H (1.6-8.9) K/mcL BMP 01/08/19 01/09/19 12:19 04:47 Sodium 130 L 136 Potassium 4.6 4.5 Chloride 96 L 97 L Carbon Dioxide 24 25 BUN 51 H 55 H Creatinine 2.83 H 2.78 H Glucose 172 H 147 H Calcium 8.8 8.9 - ABG Interpretation ABG results: ABG ABG pH 7.27 pH Units (7.32-7.45) L 01/08/19 14:56 ABG pCO2 67 mmHg (35-45) H 01/08/19 14:56 ABG pO2 93 mmHg (85-104) 01/08/19 14:56 ABG O2 Saturation 96 % (95-98) 01/08/19 14:56 - Impressions Impressions Brain MRI 01/08/19 01:30 IMPRESSION: 1. No acute intracranial abnormality. No acute infarct. 2. 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 3. Mild global parenchymal volume loss with moderate chronic microvascular ischemic changes. 4. Bilateral mastoid effusions. D/ / Ashok Giron MD / Ashok Giron MD Interpreting Provider: Ahsok Giron MD Chest CT 01/08/19 10:57 IMPRESSION: Extensive scattered bilateral asymmetric airspace disease with small effusions. Findings are presumed infectious in origin. Continued radiographic follow-up recommended to assure resolution. Extensive bilateral bronchiolitis. Cardiomegaly, post median sternotomy. Indeterminate right paratracheal lymph nodes likely reactive. Left thyroid lobe nodule 1.2 cm. No imaging follow up recommended. 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
[2019-01-09] MEDS: cefTRIAXone 1,000 MG in Water for inj. (sterile) 10 ML IVP SCH (07:57)
[2019-01-09] MEDS: Aspirin Enteric Coated 81 MG Tablet PO SCH (07:59)
[2019-01-09] MEDS: Apixaban 5 MG TABLET PO SCH (07:59)
[2019-01-09] MEDS: Gabapentin 100 MG CAPSULE PO SCH ×2 (07:59→11:31)
[2019-01-09] MEDS: Metoprolol XL (24 HR) Succ 25 MG TAB.ER.24H PO SCH (07:59)
--- NOTE | 2019-01-09 08:36 | Pulmonology Consult Note ---
Date of Encounter: 01/09/19 Past Med Surg Social Fam HX - Past Medical History Medical history: arthritis, atrial fibrillation, CHF, COPD, coronary artery disease, diabetes, hypertension, myocardial infarction Additional medical history: Type II Diabetic Psychiatric history: anxiety, depression - Past Surgical History Surgical History: angioplasty/stent, coronary bypass (CABG), hysterectomy, pacemaker/AICD Additional surgical history: lower back surgery in 02/2013. 1 cardiac stent - Social History Smoking Status: Current every day smoker Smokeless Tobacco Status: No Alcohol use: none Drug use: none - Family History Father Adopted: No Family Member Ethnicity: Non- Living Status: Hx Family Cardiac Disorders: Yes (NM) Hx Family Respiratory Disorders: No Hx Family Cancer: No Hx Family GI Disorders: No Hx Family Endocrine Disorder: No Hx Family Neuromuscular Disorders: No Hx Family Neurologic Disorders: No Hx Family HEENT Disorders: No Hx Family Autoimmune Disorders: No Mother Family Member Ethnicity: Non- Living Status: Hx Family Cardiac Disorders: Yes (Afib, CAD, HF) Hx Family Endocrine Disorder: Yes (DM) Brother Family Member Ethnicity: Non- Living Status: Sister Family Member Ethnicity: Non- Living Status: Medications and Allergies Apixaban [Eliquis] 5 mg PO BID 08/04/16 [History] Clopidogrel [Plavix] 75 mg PO QAM 08/04/16 [History] Ferrous Sulfate 325 mg PO QAM 08/04/16 [History] Digoxin [Lanoxin] 0.125 mg PO MOWEFR 02/04/17 [History] Ipratropium/Albuterol Neb [Duoneb] 3 ml IH Q6HR 02/27/17 [History] Furosemide [Lasix] 40 mg PO DAILY 03/13/17 [History] metFORMIN [Glucophage] 500 mg PO QAM 07/11/17 [History] Insulin DETEMIR [Levemir] 20 unit SQ HS 09/05/17 [History] Spironolactone [Aldactone] 25 mg PO DAILY 09/05/17 [History] Acetaminophen/Diphenhydramine [Acetaminophen Pm Caplet] 2 tab PO HS 11/22/17 [History] Fluticasone/Salmeterol [Advair 500-50 Diskus] 1 puff IH BID 11/22/17 [History] Metoprolol Succinate [Toprol Xl] 25 mg PO DAILY 11/22/17 [History] Pravastatin Sodium [Pravachol] 80 mg PO HS 11/22/17 [History] Aspirin [Lo-Dose Aspirin EC] 81 mg PO DAILY 11/23/17 [History] Tramadol HCl [Ultram] 50 mg PO Q4H PRN 11/23/17 [History] Gabapentin [Neurontin] 200 mg PO BID 01/06/19 [History] amLODIPine [Norvasc] 5 mg PO DAILY 01/06/19 [History] traZODone [TraZODone] 100 mg PO HS 01/06/19 [History] Acetaminophen [Tylenol 650mg SUPP] 650 mg RC Q4HR PRN 01/07/19 [History] Gabapentin [Neurontin] 100 mg PO 1200 01/07/19 [History] Haloperidol 0.5 mg PO Q2H PRN 01/07/19 [History] Hyoscyamine SL [Levsin SL] 0.125 - 0.25 mg SL Q2H PRN 01/07/19 [History] LORazepam [Ativan] 0.5 mg PO Q4H PRN 01/07/19 [History] Morphine Oral CONC [Roxanol] 5 mg PO Q4H PRN 01/07/19 [History] Pantoprazole Sodium [Protonix] 40 mg PO DAILY 01/07/19 [History] Polyethylene Glycol 3350 17 g PO DAILY PRN 01/07/19 [History] Promethazine [Phenergan] 25 mg RC Q6HR PRN 01/07/19 [History] Sennosides [Senna] 8.6 mg PO DAILY PRN 01/07/19 [History] Allergy/AdvReac Type Severity Reaction Status Date / Time bupropion [From Wellbutrin] Allergy Swelling Verified 09/05/17 17:06 of Lip/Tongue/Throat Sulfa (Sulfonamide Allergy Hives Verified 09/05/17 17:06 Antibiotics) Varenicline [From Chantix] Allergy Swelling Verified 09/05/17 17:06 of Lip/Tongue/Throat Iodinated Contrast Media AdvReac See Verified 09/05/17 17:06 [Iodinated Contrast Media - Comments Oral and] lidocaine AdvReac Hives Verified 09/05/17 17:06 tape Allergy Hives Uncoded 04/11/17 12:53 All Systems: The remainder of the systems were reviewed and are negative Physical Examination Vital Signs: Vital Signs, Last 4 Hours Temp Pulse Resp BP Pulse Ox 01/09/19 07:21 97.3 F L 80 18 136/79 96 Results - Laboratory Findings CBC and BMP: 01/09/19 04:47 01/09/19 04:47 ABG ABG pH 7.27 pH Units (7.32-7.45) L 01/08/19 14:56 ABG pCO2 67 mmHg (35-45) H 01/08/19 14:56 ABG pO2 93 mmHg (85-104) 01/08/19 14:56 ABG O2 Saturation 96 % (95-98) 01/08/19 14:56 Abnormal lab findings: Abnormal lab results WBC 12.0 K/mcL (4.3-11.1) H 01/08/19 12:19 RBC 3.61 M/mcL (3.82-4.97) L 01/09/19 04:47 Hgb 10.5 g/dL (11.5-15.4) L 01/09/19 04:47 Hct 33.8 % (35.3-44.9) L 01/09/19 04:47 MCHC 31.1 g/dL (31.6-35.5) L 01/09/19 04:47 Band Neutrophils % 20.0 % (0-4) H 01/09/19 04:47 Metamyelocytes % 2.0 % (0) H 01/09/19 04:47 Neutrophils # 10.0 K/mcL (1.6-8.9) H 01/09/19 04:47 Monocytes # 1.5 K/mcL (0.0-1.3) H 01/06/19 18:10 Dohle Bodies Present (Not Present) A 01/08/19 12:19 Anisocytosis 1+ (Not Present) A 01/09/19 04:47 ABG pH 7.27 pH Units (7.32-7.45) L 01/08/19 14:56 ABG pCO2 67 mmHg (35-45) H 01/08/19 14:56 ABG HCO3 30 mEq/L (21-27) H 01/08/19 14:56 ABG Total CO2 32 mEq/L (20-26) H 01/08/19 14:56 Sodium 130 mEq/L (136-145) L 01/08/19 12:19 Chloride 97 mEq/L (98-107) L 01/09/19 04:47 BUN 55 mg/dL (8-23) H 01/09/19 04:47 Creatinine 2.78 mg/dL (0.60-1.20) H 01/09/19 04:47 Est GFR ( Amer) 20 (> 60) L 01/09/19 04:47 Est GFR (Non-Af Amer) 17 (> 60) L 01/09/19 04:47 Glucose 147 mg/dL (70-105) H 01/09/19 04:47 POC Glucose 141 mg/dL (70-99) H 01/08/19 19:54 Phosphorus 5.5 mg/dL (2.7-4.5) H 01/09/19 04:47 Urine Clarity Cloudy (Clear) A 01/06/19 18:33 Urine Protein 30 mg/dL (Neg-Trace) H 01/06/19 18:33 Urine Blood Moderate (Negative) H 01/06/19 18:33 Urine Microscopic WBC 3-5 per hpf (0-3) H 01/06/19 18:33 Ur Squamous Epith Cells Many per lpf (None-Few) H 01/06/19 18:33 Urine Yeast Few per hpf (None Seen) H 01/06/19 18:33 - Clinical Findings Intake & Output: Intake & Output 01/08/19 01/09/19 01/09/19 23:59 07:59 15:59 Intake Total Output Total 300 / 300 Balance -290 / -290 Weight 64.5 kg Consult Discharge Plan - Plan Referrals: Hal Monroy MD [Primary Care Provider] -
[2019-01-09] MEDS ORDERED: Azithromycin 250 MG TABLET PO SCH (09:00)
--- NOTE | 2019-01-09 10:48 | Discharge Summary ---
Date of Encounter: 01/09/19 Time of Encounter: 09:00 - Discharge Diagnosis (1) Acute and chronic respiratory failure Priority: Primary Status: Acute Assessment and Plan: 73 year old female patient presented to the emergency department from home for weakness and altered mental status. She is a hospice patient due to worsening pulmonary and renal function. She also has heart failure. Her daughter who is at bedside is her primary vp digital marketing and states that about a day and a half ago the patient began having increased shortness of breath and decreased urination. She is also a bit more confused. She did improve as the day progressed however the following day when the patient was awoken at around 9 AM. Patient was very weak and the daughter had issues getting her to the bathroom. She was assessed with acute worsening of chronic respiratory failure secondary to bronchiolitis, COPD exacerbation, pneumonia and diastolic CHF. She was needing up to 8L of oxygen via facemask. She improved on BIPAP, duonebs, steroids, antibiotics and lasix. She and her daughter met with the palliative care team and they decided to return home with hospice. She will be sent with BIPAP and a course of steroids and antibiotics. She was weaned down to 4L of oxygen via nasal cannula on discharge which is her baseline per daughter. 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 Diabetes mellitus complication status: with kidney complications Diabetes mellitus com plication detail: with chronic kidney disease Chronic kidney disease stage: stage 3 (moderate) Qualified Code(s): E11.22 - Type 2 diabetes mellitus with diabetic chronic kidney disease; N18.3 - Chronic kidney disease, stage 3 (moderate); Z79.4 - jail (current) use of insulin (5) Confusion Priority: Primary Status: Acute (6) Weakness Priority: Primary Status: Acute (7) TREY (acute kidney injury) Priority: Primary Status: Acute (8) Tobacco abuse Priority: Primary Status: Chronic (9) DVT prophylaxis Priority: Primary Status: Chronic Hospital course: Ms. Rodarte is a 73 year old female - Time Spent with Patient Total time spent providing and/or coordinating discharge services: - Discharge Medications Prescriptions: New Azithromycin [Zithromax] 500 mg PO DAILY #8 tablet predniSONE [PredniSONE] 40 mg PO DAILY 7 Days #14 tablet Continued Apixaban [Eliquis] 5 mg PO BID Clopidogrel [Plavix] 75 mg PO QAM Ferrous Sulfate 325 mg PO QAM Digoxin [Lanoxin] 0.125 mg PO MOWEFR Ipratropium/Albuterol Neb [Duoneb] 3 ml IH Q6HR Furosemide [Lasix] 40 mg PO DAILY metFORMIN [Glucophage] 500 mg PO QAM Spironolactone [Aldactone] 25 mg PO DAILY Insulin DETEMIR [Levemir] 20 unit SQ HS Fluticasone/Salmeterol [Advair 500-50 Diskus] 1 puff IH BID Metoprolol Succinate [Toprol Xl] 25 mg PO DAILY Pravastatin Sodium [Pravachol] 80 mg PO HS Acetaminophen/Diphenhydramine [Acetaminophen Pm Caplet] 2 tab PO HS Tramadol HCl [Ultram] 50 mg PO Q4H PRN PRN Reason: Pain Aspirin [Lo-Dose Aspirin EC] 81 mg PO DAILY amLODIPine [Norvasc] 5 mg PO DAILY Gabapentin [Neurontin] 200 mg PO BID traZODone [TraZODone] 100 mg PO HS Morphine Oral CONC [Roxanol] 5 mg PO Q4H PRN PRN Reason: pain/sob Pantoprazole Sodium [Protonix] 40 mg PO DAILY Polyethylene Glycol 3350 17 g PO DAILY PRN PRN Reason: Constipation LORazepam [Ativan] 0.5 mg PO Q4H PRN PRN Reason: Anxiety Hyoscyamine SL [Levsin Sl] 0.125 - 0.25 mg SL Q2H PRN PRN Reason: excess secretions Haloperidol 0.5 mg PO Q2H PRN PRN Reason: terminal agitation Gabapentin [Neurontin] 100 mg PO 1200 Acetaminophen [Tylenol 650mg SUPP] 650 mg RC Q4HR PRN PRN Reason: Fever Promethazine [Phenergan] 25 mg RC Q6HR PRN PRN Reason: Nausea And Vomiting Sennosides [Senna] 8.6 mg PO DAILY PRN PRN Reason: Constipation Home Medications: Apixaban [Eliquis] 5 mg PO BID 08/04/16 [History] Clopidogrel [Plavix] 75 mg PO QAM 08/04/16 [History] Ferrous Sulfate 325 mg PO QAM 08/04/16 [History] Digoxin [Lanoxin] 0.125 mg PO MOWEFR 02/04/17 [History] Ipratropium/Albuterol Neb [Duoneb] 3 ml IH Q6HR 02/27/17 [History] Furosemide [Lasix] 40 mg PO DAILY 03/13/17 [History] metFORMIN [Glucophage] 500 mg PO QAM 07/11/17 [History] Insulin DETEMIR [Levemir] 20 unit SQ HS 09/05/17 [History] Spironolactone [Aldactone] 25 mg PO DAILY 09/05/17 [History] Acetaminophen/Diphenhydramine [Acetaminophen Pm Caplet] 2 tab PO HS 11/22/17 [History] Fluticasone/Salmeterol [Advair 500-50 Diskus] 1 puff IH BID 11/22/17 [History] Metoprolol Succinate [Toprol Xl] 25 mg PO DAILY 11/22/17 [History] Pravastatin Sodium [Pravachol] 80 mg PO HS 11/22/17 [History] Aspirin [Lo-Dose Aspirin EC] 81 mg PO DAILY 11/23/17 [History] Tramadol HCl [Ultram] 50 mg PO Q4H PRN 11/23/17 [History] Gabapentin [Neurontin] 200 mg PO BID 01/06/19 [History] amLODIPine [Norvasc] 5 mg PO DAILY 01/06/19 [History] traZODone [TraZODone] 100 mg PO HS 01/06/19 [History] Acetaminophen [Tylenol 650mg SUPP] 650 mg RC Q4HR PRN 01/07/19 [History] Gabapentin [Neurontin] 100 mg PO 1200 01/07/19 [History] Haloperidol 0.5 mg PO Q2H PRN 01/07/19 [History] Hyoscyamine SL [Levsin Sl] 0.125 - 0.25 mg SL Q2H PRN 01/07/19 [History] LORazepam [Ativan] 0.5 mg PO Q4H PRN 01/07/19 [History] Morphine Oral CONC [Roxanol] 5 mg PO Q4H PRN 01/07/19 [History] Pantoprazole Sodium [Protonix] 40 mg PO DAILY 01/07/19 [History] Polyethylene Glycol 3350 17 g PO DAILY PRN 01/07/19 [History] Promethazine [Phenergan] 25 mg RC Q6HR PRN 01/07/19 [History] Sennosides [Senna] 8.6 mg PO DAILY PRN 01/07/19 [History] Azithromycin [Zithromax] 500 mg PO DAILY #8 tablet 01/09/19 [Rx] predniSONE [PredniSONE] 40 mg PO DAILY 7 Days #14 tablet 01/09/19 [Rx] Allergies/Adverse Reactions: Allergy/AdvReac Type Severity Reaction Status Date / Time bupropion [From Wellbutrin] Allergy Swelling Verified 09/05/17 17:06 of Lip/Tongue/Throat Sulfa (Sulfonamide Allergy Hives Verified 09/05/17 17:06 Antibiotics) Varenicline [From Chantix] Allergy Swelling Verified 09/05/17 17:06 of Lip/Tongue/Throat Iodinated Contrast Media AdvReac See Verified 09/05/17 17:06 [Iodinated Contrast Media - Comments Oral and] lidocaine AdvReac Hives Verified 09/05/17 17:06 tape Allergy Hives Uncoded 04/11/17 12:53 Date of admission: 01/08/19 14:38 Primary care physician: Hal Monroy MD Consults: 01/07/19 01:30 Consult to Occupational Therapy [CONS] Routine Comment: Evaluate, develop and implement POC Reason for Consult: Weakness, hospice patient. Does patient have active BEDREST order?: No Is patient medically & hemodynamically stable?: Yes Patient assessed for mobility or mobilized this visit?: No Consult to Palliative Care [CONS] Routine Comment: Consulting Provider: Palliative Care [place] Reason for Consult: Hospice patient, patient daughter is primary health care technician. Having difficulties at home. Recently patient became more lethargic. Hospice called from ER. Call Completed: Yes Consult to Physical Therapy [CONS] Routine Comment: Evaluate, develop and implement POC Reason for Consult: Weakness, hospice patient Does patient have active BEDREST order?: No Is patient medically & hemodynamically stable?: Yes Patient assessed for mobility or mobilized this visit?: No 01/07/19 03:16 Consult to Nurse Navigator [CONS] Routine Comment: 01/08/19 16:44 Consult to Pulmonology [CONS] Routine Consulting Provider: [facility] [place] Reason for Consult: hypoxic respiratory failure with bronchiolitis Call Completed: No - Constitutional Vitals: Temp Pulse Resp BP Pulse Ox 97.3 F L 80 18 136/79 99 01/09/19 07:21 01/09/19 07:21 01/09/19 10:16 01/09/19 07:21 01/09/19 10:16 General appearance: Present: A&O X 1, pleasant, no acute distress. Absent: cooperative, answers questions appropriately Exam: General appearance: Present: A&O X 3, no acute distress Head exam: Present: normocephalic Respiratory exam: Present: CTAB. Absent: accessory muscle use, rales, rhonchi, wheezes Cardiovascular exam: Present: RRR, +S1, +S2. Absent: diastolic murmur, gallop, rubs, systolic murmur GI/Abdominal exam: Soft, NT, ND, +BS Extremities exam: Absent: pedal edema Neurological exam: Alert to person and place - Patient Status Disposition: Hospice - Home Condition: Good - Discharge Instructions Follow Up With: Hal Monroy MD [Primary Care Provider] -
[2019-01-09 15:34] VITALS: BP 114/64
== END 2019-01-09 16:06 | disposition hospice, home (50) | DRG 189 ==
LOC: EMEROOARM 16:18 → 2ANU 16:18 → SUATTDRO 20:59 → 2ANU 22:00
PROVIDERS: ADMIT Pediatrics; ATTEND Internal Medicine